=== PATIENT | female | born 1940 | race Caucasian/White ===

== ENCOUNTER → 2018-10-21 | Outpatient (CLI) | payer MEDICARE, OTHER ==
--- NOTE | 2018-10-22 07:06 | US ---
EXAMINATION TYPE: US carotid duplex BILAT DATE OF EXAM: 10/21/2018 COMPARISON: NONE CLINICAL HISTORY: R09.89 CAROTID BRUIT. Bruit Pt scanned in wheelchair, difficult exam EXAM MEASUREMENTS: RIGHT: Peak Systolic Velocity (PSV) cm/sec ----- Right CCA: 90.4 ----- Right ICA: 203 ----- Right ECA: 187 ICA/CCA ratio: 2.2 RIGHT: End Diastole cm/sec ----- Right CCA: 10.2 ----- Right ICA: 28.0 ----- Right ECA: 0.0 LEFT: Peak Systolic Velocity (PSV) cm/sec ----- Left CCA: 100 ----- Left ICA: 116 ----- Left ECA: 121 ICA/CCA ratio: 1.2 LEFT: End Diastole cm/sec ----- Left CCA: 10.7 ----- Left ICA: 21.4 ----- Left ECA: 0.0 VERTEBRALS (direction of flow): Right Vertebral: Unable to visualize Left Vertebral: Antegrade Rhythm: Normal Slightly elevated velocities bilaterally, more on right side IMPRESSION: 1. Atherosclerotic changes. Findings are compatible with approximately 50-69% stenosis proximal right ICA. Given the limitations exam consider correlation with CTA. Criteria for Assigning % of Stenosis / Diameter reduction (Estimation based on the indirect measurements of the internal carotid artery velocities (ICA PSV). 1. Normal (no stenosis)=ICA PSV < 125 cm/s: ratio < 2.0: ICA EDV<40 cm/s. 2. Less than 50% stenosis=ICA PSV < 125 cm/s: ratio < 2.0: ICA EDV<40 cm/s. 3. 50 to 69% stenosis=ICA PSV of 125 to 230 cm/s: ration 2.0 ? 4.0: ICA EDV 40-100 cm/s. 4. Greater than 70% stenosis to near occlusion= ICA PSV > 230 cm/s: ratio > 4.0: ICA EDV > 100 cm/s. 5. Near occlusion= ICA PSV velocities may be low or undetectable: variable ratio and ICA EDV. 6. Total occlusion=unable to detect flow.
== END | disposition home or self-care (01) ==
LOC: RADUSWWP 16:29
PROVIDERS: ATTEND Family Medicine
DX: I70.90 Unspecified atherosclerosis (principal)
CPT/HCPCS: 93880

== ENCOUNTER 2019-10-01 22:08 | Inpatient (IN) | payer MEDICARE ==
[2019-10-01 23:10] LABS: Basophils % (A) 0 %; Eosinophils % (A) 0 %; HCT 34.4 % (34.0-46.0); HGB 10.6 gm/dL (11.4-16.0); Hypochromasia Moderate; Lymphocytes # (A) 0.4 k/uL (1.0-4.8); Lymphocytes % (A) 3 %; MCH 26.5 pg (25.0-35.0); MCHC 30.9 g/dL (31.0-37.0); MCV 85.7 fL (80.0-100.0); Mean Platelet Volume 7.6; Monocytes # (A) 0.7 k/uL (0-1.0); Monocytes % (A) 5 %; Neutrophils # (A) 10.9 k/uL (1.3-7.7); Neutrophils % (A) 89 %; Platelet Count 375 k/uL (150-450); RBC 4.02 m/uL (3.80-5.40); RDW 14.4 % (11.5-15.5); WBC 12.2 k/uL (3.8-10.6)
--- NOTE | 2019-10-01 23:15 | ED ---
Fall HPI - General Chief Complaint: Fall Stated Complaint: Weakness Time Seen by Provider: 10/01/19 22:15 Source: patient Mode of arrival: EMS - History of Present Illness Initial Comments: Jane is a 79-year-old female's rest the ER today by EMS for evaluation of generalized weakness and a fall yesterday. Patient reports she's had a cold for 3 week she hasn't been feeling well hasn't been eating or drinking much. She states she hasn't taken any of her home medications for 3-4 days. Patient states that yesterday evening she had a fall and was too weak to get up, she states that she spent the entire night on the ground and all of today after being unable to get up this evening decided to call 911 for help. Patient reports that her family checks on her regularly and have been encouraging her to come to hospital for the past 2 weeks but she's refused. Patient reports she just doesn't feel well no appetite and generalized malaise. She denies any fevers chills cough, chest pain palpitations or shortness of breath. Patient does report that she suffers from neuropathy and chronic wounds on her lower extremities. - Related Data Home Medications Medication Instructions Recorded Confirmed Ergocalciferol [Vitamin D2 1 tab PO WEEKLY 02/17/14 02/17/14 (VICTOR MANUEL)] Glimepiride [Amaryl] 4 mg PO BID 02/17/14 02/17/14 Previous Rx's Medication Instructions Recorded Aspirin EC [Ecotrin] 325 mg PO DAILY #30 tablet. 02/21/14 Carvedilol [Coreg*] 12.5 mg PO BID #180 tab 02/21/14 Furosemide [Lasix] 40 mg PO DAILY #90 tab 02/21/14 Spironolactone [Aldactone] 25 mg PO DAILY #90 tab 02/21/14 amLODIPine [Norvasc] 10 mg PO DAILY #30 tab 02/21/14 Allergies Allergy/AdvReac Type Severity Reaction Status Date / Time Penicillins Allergy Rash/Hives Verified 02/17/14 16:13 Review of Systems ROS Statement: Those systems with pertinent positive or pertinent negative responses have been documented in the HPI. ROS Other: All systems not noted in ROS Statement are negative. Past Medical History Past Medical History: Heart Failure, COPD, Diabetes Mellitus, Hyperlipidemia, Hypertension, Osteoarthritis (OA), Pneumonia, Skin Disorder, Thyroid Disorder Additional Past Medical History / Comment(s): PUL EDEMA, HIATL HERNIA, EDEMA TO LEGS AND BREAKDOWN/BLISTERS TO MARTÍN LEGS, IBS, EDEMA TO BILAT LE'S History of Any Multi-Drug Resistant Organisms: None Reported Past Surgical History: Cholecystectomy, Tonsillectomy Additional Past Surgical History / Comment(s): neck SX REMOVED BENIGN MASS OUT, RT BREAST BX-BENIGN, LASER EYE SX THINKS ON HER RT EYE. Past Anesthesia/Blood Transfusion Reactions: No Reported Reaction Past Psychological History: No Psychological Hx Reported Smoking Status: Former smoker Past Alcohol Use History: None Reported Past Drug Use History: None Reported - Past Family History Father Family Medical History: Hypertension, Myocardial Infarction ([place]) Additional Family Medical History / Comment(s): X3 [place], Mother Family Medical History: Cancer Additional Family Medical History / Comment(s): DIES FROM COLON [place] General Exam - General Exam Comments Initial Comments: Physical Exam GENERAL: Chronically ill-appearing obese elderly female HENT: Normocephalic, Atraumatic. EYES: PERRL, EOMI Conjunctival pallor PULMONARY: Decreased at the bases CARDIOVASCULAR: Regular rate and rhythm 2+ pitting edema bilateral lower extremities ABDOMEN: Obese, nontender SKIN: Chronic wounds bilateral lower extremities, multiple excoriations on extremities : Normal external genitalia NEUROLOGIC: Patient is alert and oriented x3. Moving all extremities spontaneously MUSCULOSKELETAL: Decreased range of motion of bilateral lower surety secondary to weakness, PSYCHIATRIC: Normal psychiatric evaluation. Limitations: no limitations Course Vital Signs 10/01/19 10/02/19 10/02/19 22:35 00:40 01:35 Temperature 94.7 F L Pulse Rate 58 L 60 Respiratory 22 20 18 Rate Blood Pressure 120/86 114/40 Blood Pressure 161/52 [Left Arm] O2 Sat by Pulse 96 98 Oximetry Medical Decision Making - Medical Decision Making The patient was seen and evaluated history is obtained from patient Elderly female who is been on the ground for nearly 24 hours after weeks of generalized weakness and malaise Septic workup was initiate Labs resulted with multiple significant abnormalities including acute kidney injury, evidence of rhabdomyolysis, hyperkalemia, hyperglycemia IV insulin was ordered for treatment of hyperkalemia, patient was placed on normal saline and D5 with bicarb drips for hydration and treatment of rhabdomyolysis X-rays with no acute injuries Patient care was discussed with her primary care physician Dr. Fleming who acc epts the admission for rhabdomyolysis secondary to immobility and in elderly diabetic patient - Lab Data Result diagrams: 10/01/19 22:40 10/01/19 22:40 Lab Results 10/01/19 10/01/19 10/01/19 Range/Units 22:40 22:40 22:40 WBC 12.2 H (3.8-10.6) k/uL RBC 4.02 (3.80-5.40) m/uL Hgb 10.6 L (11.4-16.0) gm/dL Hct 34.4 (34.0-46.0) % MCV 85.7 (80.0-100.0) fL MCH 26.5 (25.0-35.0) pg MCHC 30.9 L (31.0-37.0) g/dL RDW 14.4 (11.5-15.5) % Plt Count 375 (150-450) k/uL Neutrophils % 89 % Lymphocytes % 3 % Monocytes % 5 % Eosinophils % 0 % Basophils % 0 % Neutrophils # 10.9 H (1.3-7.7) k/uL Lymphocytes # 0.4 L (1.0-4.8) k/uL Monocytes # 0.7 (0-1.0) k/uL Eosinophils # 0.0 (0-0.7) k/uL Basophils # 0.0 (0-0.2) k/uL Hypochromasia Moderate PT 10.3 (9.0-12.0) sec INR 1.0 (<1.2) APTT 24.4 (22.0-30.0) sec Sodium 136 L (137-145) mmol/L Potassium 6.0 H (3.5-5.1) mmol/L Chloride 110 H (98-107) mmol/L Carbon Dioxide 14 L (22-30) mmol/L Anion Gap 12 mmol/L BUN 75 H (7-17) mg/dL Creatinine 3.04 H (0.52-1.04) mg/dL Est GFR (CKD-EPI)AfAm 16 (>60 ml/min/1.73 sqM) Est GFR (CKD-EPI)NonAf 14 (>60 ml/min/1.73 sqM) Glucose 291 H (74-99) mg/dL Plasma Lactic Acid Yvan (0.7-2.0) mmol/L Calcium 9.5 (8.4-10.2) mg/dL Total Bilirubin 0.3 (0.2-1.3) mg/dL AST 138 H (14-36) U/L ALT 20 (4-34) U/L Alkaline Phosphatase 143 H (38-126) U/L Creatine Kinase 3065 H* (30-135) U/L Total Protein 6.6 (6.3-8.2) g/dL Albumin 3.2 L (3.5-5.0) g/dL Urine Color Urine Appearance (Clear) Urine pH (5.0-8.0) Ur Specific Egan (1.001-1.035) Urine Protein (Negative) Urine Glucose (UA) (Negative) Urine Ketones (Negative) Urine Blood (Negative) Urine Nitrite (Negative) Urine Bilirubin (Negative) Urine Urobilinogen (<2.0) mg/dL Ur Leukocyte Esterase (Negative) Urine RBC (0-5) /hpf Urine WBC (0-5) /hpf Ur Squamous Epith Cells (0-4) /hpf Hyaline Casts (0-2) /lpf Urine Mucus (None) /hpf 10/01/19 10/01/19 Range/Units 22:40 23:22 WBC (3.8-10.6) k/uL RBC (3.80-5.40) m/uL Hgb (11.4-16.0) gm/dL Hct (34.0-46.0) % MCV (80.0-100.0) fL MCH (25.0-35.0) pg MCHC (31.0-37.0) g/dL RDW (11.5-15.5) % Plt Count (150-450) k/uL Neutrophils % % Lymphocytes % % Monocytes % % Eosinophils % % Basophils % % Neutrophils # (1.3-7.7) k/uL Lymphocytes # (1.0-4.8) k/uL Monocytes # (0-1.0) k/uL Eosinophils # (0-0.7) k/uL Basophils # (0-0.2) k/uL Hypochromasia PT (9.0-12.0) sec INR (<1.2) APTT (22.0-30.0) sec Sodium (137-145) mmol/L Potassium (3.5-5.1) mmol/L Chloride (98-107) mmol/L Carbon Dioxide (22-30) mmol/L Anion Gap mmol/L BUN (7-17) mg/dL Creatinine (0.52-1.04) mg/dL Est GFR (CKD-EPI)AfAm (>60 ml/min/1.73 sqM) Est GFR (CKD-EPI)NonAf (>60 ml/min/1.73 sqM) Glucose (74-99) mg/dL Plasma Lactic Acid Yvan 1.3 (0.7-2.0) mmol/L Calcium (8.4-10.2) mg/dL Total Bilirubin (0.2-1.3) mg/dL AST (14-36) U/L ALT (4-34) U/L Alkaline Phosphatase (38-126) U/L Creatine Kinase (30-135) U/L Total Protein (6.3-8.2) g/dL Albumin (3.5-5.0) g/dL Urine Color Yellow Urine Appearance Clear (Clear) Urine pH 5.0 (5.0-8.0) Ur Specific Egan 1.018 (1.001-1.035) Urine Protein Trace H (Negative) Urine Glucose (UA) Negative (Negative) Urine Ketones Negative (Negative) Urine Blood Small H (Negative) Urine Nitrite Negative (Negative) Urine Bilirubin Negative (Negative) Urine Urobilinogen <2.0 (<2.0) mg/dL Ur Leukocyte Esterase Negative (Negative) Urine RBC <1 (0-5) /hpf Urine WBC 4 (0-5) /hpf Ur Squamous Epith Cells <1 (0-4) /hpf Hyaline Casts 8 H (0-2) /lpf Urine Mucus Rare H (None) /hpf - EKG Data -: EKG Interpreted by Me EKG Comments: EKG was obtained as part of the septic workup, EKG obtained at 2219, rate is 59 rhythm is sinus bradycardia, OR 152 from here is 92, QTC prolonged at 504, no obvious ST elevations or depressions no evidence of acute ischemia or infarction. Disposition Clinical Impression: Rhabdomyolysis, HUBER (acute kidney injury), Fall, Diabetes Disposition: ADMITTED IP TO THIS HOSP Condition: Serious Is patient prescribed a controlled substance at d/c from ED?: No
[2019-10-01 23:18] LABS: Partial Thromboplastin Time 24.4 sec (22.0-30.0); Prothrombin Time 10.3 sec (9.0-12.0)
[2019-10-01 23:21] LABS: Albumin 3.2 g/dL (3.5-5.0); Calcium 9.5 mg/dL (8.4-10.2); Total Bilirubin 0.3 mg/dL (0.2-1.3); Total Protein 6.6 g/dL (6.3-8.2)
[2019-10-01] MEDS ORDERED: SODIUM CHLORIDE 0.9% 1,000 ML IV ONE (23:52)
[2019-10-01] MEDS ORDERED: INSULIN REGULAR 100 UNIT/ML VIAL IV ONE (23:53)
--- NOTE | 2019-10-02 00:24 | XR ---
EXAMINATION TYPE: XR chest 1V portable DATE OF EXAM: 10/02/2019 COMPARISON: 02/17/2014 HISTORY: Short of breath TECHNIQUE: Single view FINDINGS: There is some blunting left costophrenic angle. There is no heart failure. Heart size is no rmal. There are chest leads. IMPRESSION: There is chronic blunting left costophrenic angle that could relate to pleural diaphragma tic scarring or pleural fluid unchanged. There is clearing of the pulmonary interstitial edema compar ed to old exam.
--- NOTE | 2019-10-02 00:25 | XR ---
EXAMINATION TYPE: XR Hip LT and AP Pelvis DATE OF EXAM: 10/02/2019 COMPARISON: NONE HISTORY: Left hip pain TECHNIQUE: 3 views FINDINGS: Pelvic ring is intact. Proximal left femur and hip joint appear normal. There is no sign of hip dysplasia. Hip joint spaces are fairly normal. Sacroiliac joints are intact. There is atheroscle rotic vascular calcification. IMPRESSION: No acute abnormality of the pelvis and left hip. No fracture.
[2019-10-02] MEDS ORDERED: NALOXONE 0.4 MG/ML 1 ML VIAL IV PRN (00:57)
[2019-10-02 01:00] LABS: Appearance,Urine Clear (Clear); Bilirubin,Urine Negative (Negative); Blood,Urine Small (Negative); Color,Urine Yellow; Glucose,Urine (UA) Negative (Negative); Hyaline Casts,Urine 8 /lpf (0-2); Ketones,Urine Negative (Negative); Leukocyte Esterase,Urine Negative (Negative); Mucus,Urine Rare /hpf; Nitrite,Urine Negative (Negative); Protein,Urine Trace (Negative); RBC,Urine <1 /hpf (0-5); Specific Gravity,Urine 1.018 (1.001-1.035); Squamous Epithelial Cell,Urine <1 /hpf (0-4); Urobilinogen,Urine <2.0 mg/dL (<2.0); WBC,Urine 4 /hpf (0-5)
[2019-10-02] MEDS ORDERED: MORPHINE SULFATE 4 MG/ML SYRINGE IVP PRN (02:24)
[2019-10-02] MEDS: SODIUM CHLORIDE 0.9% 1,000 ML IV SCH ×3 (02:53→17:12)
[2019-10-02] MEDS: DEXTROSE 5% IN WATER 1,000 ML with SODIUM BICARB (1 MEQ/ML) 150 ML IV SCH ×2 (02:55→07:33)
[2019-10-02 07:10] LABS: Glucose,Whole Blood 232 mg/dL (75-99)
[2019-10-02] MEDS: INSULIN ASPART (NovoLOG) 100 UNIT/ML VIAL SQ SCH ×4 (07:33→20:25)
[2019-10-02 11:39] LABS: Glucose,Whole Blood 298 mg/dL (75-99)
--- NOTE | 2019-10-02 14:24 | HP ---
HISTORY AND PHYSICAL CHIEF COMPLAINT: Lethargy, fall, inability to get up. HISTORY OF PRESENT ILLNESS: This is a first time admission for this 79-year-old female. She has a history of hypertension and diabetes. She is very inactive. We got a call from the family the day prior to her admission that she was unable to get up. The report that we got was that she was in a chair and would not get up and move about. They wanted to know what to do and they were instructed to call an ambulance. They had been trying to get her to go either to my office or the hospital for two weeks because of inactivity and she kept refusing. She finally was brought to the emergency room. There she was found to be in rhabdomyolysis. She is lethargic and no other history can be obtained other than from her medical records. She denies pain. Past medical history, family history, personal history, and social history were reviewed. ALLERGIES: SHE IS ALLERGIC TO PENICILLIN. MEDICATIONS: She is supposed to be on atorvastatin 40, Losartan 50, amlodipine 10, carvedilol 12.5 once a day, levothyroxine 0.1 mcg, chlorthalidone 0.5 mg, NovoLog mix 70/30 with 32 units and 12 at night. Apparently she has not been taking any medications. SOCIAL HISTORY: She has smoked in the past but she quit. She does not consume alcohol. PHYSICAL EXAMINATION: Pulse is 110, respirations 33, blood pressure 105/50. In general, she appeared to be pale and she was lethargic. Head, ears, eyes, nose, mouth, and throat are normal. Neck veins are not distended. Breath sounds are heard bilaterally. Cardiac exam is normal. Abdomen is soft and nontender. Extremities demonstrated multiple neurotic excoriations of the arms and legs, particularly on the legs where she had some areas of cellulitis. Neurologically she was lethargic and otherwise intact. IMPRESSION: 1. Rhabdomyolysis. 2. Prerenal azotemia and acute kidney injury. 3. Hyperkalemia. 4. Type 2 insulin-dependent diabetes mellitus. 5. History of hypertension. 6. Neurotic excoriations with secondary cellulitis. PLAN: 1. Bed rest. 2. IV fluids. 3. Rehydrate. 4. Monitor her kidney function. 5. Physical therapy. 6. Discharge planning. MMODL / IJN: [id number] /
[2019-10-02] MEDS ORDERED: ACETAMINOPHEN TAB 325 MG TAB PO PRN (15:29)
[2019-10-02 17:12] LABS: Glucose,Whole Blood 262 mg/dL (75-99)
[2019-10-02 19:04] LABS: Basophils % (A) 0 %; Eosinophils # (A) 0.1 k/uL (0-0.7); Eosinophils % (A) 1 %; HGB 9.9 gm/dL (11.4-16.0); Hypochromasia Moderate; Lymphocytes # (A) 0.5 k/uL (1.0-4.8); Lymphocytes % (A) 6 %; MCH 26.7 pg (25.0-35.0); MCHC 30.9 g/dL (31.0-37.0); MCV 86.4 fL (80.0-100.0); Mean Platelet Volume 7.9; Monocytes # (A) 0.6 k/uL (0-1.0); Monocytes % (A) 6 %; Neutrophils % (A) 86 %; Platelet Count 338 k/uL (150-450); RDW 14.7 % (11.5-15.5); WBC 9.3 k/uL (3.8-10.6)
[2019-10-02 19:14] LABS: Albumin 2.6 g/dL (3.5-5.0); Potassium 5.3 mmol/L (3.5-5.1); Total Bilirubin 0.2 mg/dL (0.2-1.3); Total Protein 5.7 g/dL (6.3-8.2)
[2019-10-02 20:20] LABS: Glucose,Whole Blood 284 mg/dL (75-99)
[2019-10-03] MEDS: SODIUM CHLORIDE 0.9% 1,000 ML IV SCH ×4 (02:11→21:09)
[2019-10-03] MEDS: LEVOTHYROXINE 100 MCG TAB PO SCH (05:49)
[2019-10-03 07:00] LABS: Glucose,Whole Blood 206 mg/dL (75-99)
[2019-10-03] MEDS: ASPIRIN 325 MG TAB PO SCH (07:33)
[2019-10-03] MEDS: INSULIN ASPART (NovoLOG) 100 UNIT/ML VIAL SQ SCH ×4 (07:33→21:01)
[2019-10-03 11:57] LABS: Glucose,Whole Blood 191 mg/dL (75-99)
[2019-10-03 17:01] LABS: Glucose,Whole Blood 295 mg/dL (75-99)
--- NOTE | 2019-10-03 17:32 | PN ---
PROGRESS NOTE DATE OF SERVICE: 10/03/2019 CHIEF COMPLAINT: Rhabdomyolysis. HISTORY OF PRESENT ILLNESS: This lady is sleeping and cannot be aroused. Her vital signs are normal and her laboratory studies will be repeated. PHYSICAL EXAMINATION: Blood pressure 126/83 with a pulse of 64, respirations are 10. She is afebrile. In general, she appeared to be well hydrated. Skin color is normal. Head, ears, eyes, nose, and mouth are normal. Chest is clear. Cardiac exam is normal. Abdomen is protuberant soft. Extremities are unchanged with the neurotic excoriations and cellulitis. IMPRESSION: Rhabdomyolysis. PLAN: Continue with IV fluids and repeat laboratory studies and eventually work on a discharge plan. MMODL / IJN: [id number] /
[2019-10-03 20:46] LABS: Glucose,Whole Blood 282 mg/dL (75-99)
[2019-10-03] MEDS: DEXTROSE 5% IN WATER 1,000 ML with SODIUM BICARB (1 MEQ/ML) 150 ML IV SCH (21:02)
[2019-10-04] MEDS: SODIUM CHLORIDE 0.9% 1,000 ML IV SCH ×3 (02:26→21:51)
[2019-10-04] MEDS: LEVOTHYROXINE 100 MCG TAB PO SCH (05:40)
[2019-10-04 07:10] LABS: Basophils % (A) 1 %; Eosinophils # (A) 0.3 k/uL (0-0.7); Eosinophils % (A) 5 %; HCT 28.5 % (34.0-46.0); Hypochromasia Slight; Lymphocytes # (A) 1.3 k/uL (1.0-4.8); Lymphocytes % (A) 18 %; MCH 26.3 pg (25.0-35.0); MCHC 31.4 g/dL (31.0-37.0); MCV 83.8 fL (80.0-100.0); Mean Platelet Volume 7.8; Monocytes # (A) 0.7 k/uL (0-1.0); Monocytes % (A) 9 %; Neutrophils # (A) 4.6 k/uL (1.3-7.7); Neutrophils % (A) 64 %; Platelet Count 319 k/uL (150-450); RDW 15.4 % (11.5-15.5); WBC 7.1 k/uL (3.8-10.6)
[2019-10-04 07:16] LABS: Glucose,Whole Blood 175 mg/dL (75-99)
[2019-10-04 07:16] LABS: Albumin 2.3 g/dL (3.5-5.0); Calcium 8.5 mg/dL (8.4-10.2); Potassium 4.8 mmol/L (3.5-5.1); Total Bilirubin 0.3 mg/dL (0.2-1.3); Total Protein 5.2 g/dL (6.3-8.2)
[2019-10-04] MEDS: ASPIRIN 325 MG TAB PO SCH (07:38)
[2019-10-04] MEDS: INSULIN ASPART (NovoLOG) 100 UNIT/ML VIAL SQ SCH ×4 (07:38→20:57)
[2019-10-04 11:42] LABS: Glucose,Whole Blood 240 mg/dL (75-99)
[2019-10-04 11:49] LABS: Hemoglobin A1C 7.3 % (4.0-6.0)
[2019-10-04 16:31] LABS: Glucose,Whole Blood 242 mg/dL (75-99)
--- NOTE | 2019-10-04 19:35 | PN ---
PROGRESS NOTE CHIEF COMPLAINT: Rhabdomyolysis. HISTORY OF PRESENT ILLNESS: This lady is slowly improving. BUN and creatinine are starting to come down. She is much more alert. She is complaining of some discomfort in the legs, but otherwise she has no issues or complaints. PHYSICAL EXAMINATION: Her vital signs are normal. Chest is clear. Cardiac exam is normal. Abdomen is soft and nontender. Lesions on the legs are somewhat less violaceous and seem to be improved. IMPRESSION: 1. Failure to thrive. 2. Rhabdomyolysis. 3. Renal failure. 4. Uncontrolled diabetes. 5. Neurotic excoriations and cellulitis of the lower extremities. PLAN: 1. Add Levemir 10 units once a day. 2. Repeat laboratory studies. 3. Increase activity. MMODL / IJN: [id number] /
[2019-10-04 20:45] LABS: Glucose,Whole Blood 253 mg/dL (75-99)
[2019-10-04] MEDS: DEXTROSE 5% IN WATER 1,000 ML with SODIUM BICARB (1 MEQ/ML) 150 ML IV SCH (21:48)
[2019-10-05] MEDS: SODIUM CHLORIDE 0.9% 1,000 ML IV SCH ×2 (04:46→08:19)
[2019-10-05] MEDS: LEVOTHYROXINE 100 MCG TAB PO SCH (05:43)
[2019-10-05 06:20] LABS: Basophils # (A) 0.1 k/uL (0-0.2); Basophils % (A) 1 %; Eosinophils # (A) 0.5 k/uL (0-0.7); Eosinophils % (A) 6 %; HCT 29.2 % (34.0-46.0); HGB 9.1 gm/dL (11.4-16.0); Hypochromasia Moderate; Lymphocytes # (A) 1.3 k/uL (1.0-4.8); Lymphocytes % (A) 16 %; MCH 26.7 pg (25.0-35.0); MCV 86.1 fL (80.0-100.0); Mean Platelet Volume 7.7; Monocytes # (A) 0.6 k/uL (0-1.0); Monocytes % (A) 8 %; Neutrophils # (A) 5.3 k/uL (1.3-7.7); Neutrophils % (A) 66 %; Platelet Count 300 k/uL (150-450); RBC 3.39 m/uL (3.80-5.40); RDW 15.1 % (11.5-15.5); WBC 8.1 k/uL (3.8-10.6)
[2019-10-05 06:33] LABS: Albumin 2.4 g/dL (3.5-5.0); Calcium 8.7 mg/dL (8.4-10.2); Potassium 4.9 mmol/L (3.5-5.1); Total Bilirubin 0.4 mg/dL (0.2-1.3); Total Protein 5.2 g/dL (6.3-8.2)
[2019-10-05] MEDS ORDERED: INSULIN DETEMIR (LEVEMIR) 100 UNIT/ML SYR SQ SCH (07:00)
[2019-10-05 07:05] LABS: Glucose,Whole Blood 165 mg/dL (75-99)
[2019-10-05] MEDS: INSULIN ASPART (NovoLOG) 100 UNIT/ML VIAL SQ SCH (07:23)
[2019-10-05 08:01] VITALS: BP 154/53; PULSE 74; RESP 16; TEMP 98.1
[2019-10-05] MEDS: ASPIRIN 325 MG TAB PO SCH (08:17)
[2019-10-05] MEDS ORDERED: LOSARTAN 50 MG TAB PO SCH (09:00)
[2019-10-05] MEDS ORDERED: amLODIPine 10 MG TAB PO SCH (09:00)
[2019-10-05] MEDS ORDERED: ATORVASTATIN 40 MG TAB PO SCH (09:00)
[2019-10-05] MEDS ORDERED: CARVEDILOL 12.5 MG TAB PO SCH (09:00)
[2019-10-05] MEDS ORDERED: SPIRONOLACTONE 25 MG TAB PO SCH (09:00)
[2019-10-05 11:30] LABS: Glucose,Whole Blood 157 mg/dL (75-99)
--- NOTE | 2019-10-05 11:54 | DS ---
DISCHARGE SUMMARY CHIEF COMPLAINT: Rhabdomyolysis. HISTORY OF PRESENT ILLNESS AND PHYSICAL EXAM: Details of this lady's history and physical can be found in the initial workup. LABORATORY STUDIES: While she was in the hospital she had laboratory studies, details of which can be found in the laboratory section of her chart. COURSE IN THE HOSPITAL: After admission she was placed on bedrest, started on intravenous fluids and she is followed by Nephrology. BUN and creatinine came down. She became much more awake and alert, and arrangements were made for her to go to [facility] on the . FINAL DIAGNOSES: 1. Rhabdomyolysis. 2. Uncontrolled type 2 insulin-dependent diabetes mellitus. 3. Failure to thrive and general debility. 4. Neurotic excoriations of the lower extremities with secondary cellulitis. OPERATIONS: None. CONSULTATIONS: Nephrology. She is improved. MMODL / HEAVENLYN: [id number] /
[2019-10-05] MEDS ORDERED: INSULIN ASPART (NovoLOG) 100 UNIT/ML VIAL SQ SCH (12:30)
[2019-10-06] MEDS ORDERED: INSULIN DETEMIR (LEVEMIR) 100 UNIT/ML SYR SQ SCH (07:00)
== END 2019-10-05 13:50 | DRG 558 ==
LOC: EC 22:08 → 4SSUR 10-02 01:06
PROVIDERS: ADMIT Family Medicine; ATTEND Family Medicine
DX: M62.82 Rhabdomyolysis (principal); N17.9 Acute kidney failure, unspecified; L03.115 Cellulitis of right lower limb; L03.116 Cellulitis of left lower limb; J44.9 Chronic obstructive pulmonary disease, unspecified; E11.65 Type 2 diabetes mellitus with hyperglycemia; E78.5 Hyperlipidemia, unspecified; M19.90 Unspecified osteoarthritis, unspecified site; W19.XXXA Unspecified fall, initial encounter; E87.5 Hyperkalemia; G62.9 Polyneuropathy, unspecified; I11.0 Hypertensive heart disease with heart failure; R62.7 Adult failure to thrive; I50.9 Heart failure, unspecified; Z79.4 Long term (current) use of insulin; Z79.82 Long term (current) use of aspirin; Z79.899 Other long term (current) drug therapy; Z88.0 Allergy status to penicillin; Z80.0 Family history of malignant neoplasm of digestive organs; Z90.89 Acquired absence of other organs; Z90.49 Acquired absence of other specified parts of digestive tract; Z98.890 Other specified postprocedural states; Z87.891 Personal history of nicotine dependence; Z82.49 Family history of ischemic heart disease and other diseases of the circulatory system
CPT/HCPCS: 36415; 51702; 71045; 73502; 80053; 81001; 82550; 83036; 83605; 85025; 85610; 85730; 87040; 93005; 99285

== ENCOUNTER 2019-10-18 17:11 | Inpatient (IN) | payer MEDICARE ==
--- NOTE | 2019-10-18 17:26 | ED ---
General Adult HPI - General Chief complaint: Recheck/Abnormal Lab/Rx Stated complaint: abnormal labs Time Seen by Provider: 10/18/19 17:13 Source: EMS Mode of arrival: EMS Limitations: no limitations - History of Present Illness Initial comments: Dictation was produced using [employer] dictation software. please excuse any grammatical, word or spelling errors. This patient was cared for during a federal and state declared state of emergency secondary to Covid 19 Chief Complaint: 79-year-old female past medical history heart failure, diabetes and dyslipidemia sent in for abnormal labs. History of Present Illness: -year-old female she was sent by her primary care physician Dr. Fleming for abnormal labs. Patient was sent in for elevated brain natruretic peptide. Patient has a history of heart failure. Patient's been dyspneic for several days. She does have a history of rhabdomyolysis. She denies any chest pain at this time. She does feel that her dyspnea is worse with exertion. Patient recently admitted for rhabdomyolysis. She was discharged in stable medical condition on October 04. Patient had labs performed earlier today. Her brain atretic peptide was elevated at 5000. She does complain of lower extremity swelling. Patient also had a potassium level of 6.5 with findings of acute kidney injury seen on labs as well. The ROS documented in this emergency department record has been reviewed and confirmed by me. Those systems with pertinent positive or negative responses have been documented in the HPI. All other systems are other negative and/or noncontributory. PHYSICAL EXAM: General Impression: Alert and oriented x3, not in acute distress HEENT: Normocephalic atraumatic, extra-ocular movements intact, pupils equal and reactive to light bilaterally, mucous membranes moist. Cardiovascular: Heart regular rate and rhythm Chest: Able to complete full sentences, no retractions, no respiratory distress, non-tachypneic Abdomen: Bowel sounds present, abdomen soft, non-tender, non-distended, no organomegaly Musculoskeletal: Pulses present and equal in all extremities, 2+ pitting edema bilateral lower extremities Motor: no focal deficits noted Neurological: CN II-XII grossly intact, no focal motor or sensory deficits noted Skin: Intact with no visualized rashes Psych: Normal affect and mood ED course: 79-year-old female with abnormal outpatient labs. Signs upon arrival are within acceptable limits.Lavatory evaluation obtained. Hemoglobin of 8.7. This appears to be patient's baseline. CBC that shows some lymphocytopenia. Coag panel unremarkable. Potassium level .3. Acute kidney injury. Glucose 58. Patient given hyperkalemia cocktail. Chest x-ray shows multifocal infiltrates. Patient will be tested for Covid 19. Chest have some shortness of breath. Patient will be treated for manic or pneumonia. Patient will be admitted to Dr. Fleming service. Nephrology on consult EKG interpretation: Ventricular rate 53, sinus bradycardia, NC interval 18, QRS 78, QTC 422. No NC prolongation, no QTC prolongation, no ST or T-wave changes noted.. Overall, this EKG is unremarkable - Related Data Home Medications Medication Instructions Recorded Confirmed Carvedilol [Coreg*] 12.5 mg PO DAILY 10/02/19 10/02/19 Levothyroxine Sodium 100 mcg PO DAILY 10/02/19 10/02/19 Losartan [Cozaar] 50 mg PO DAILY 10/02/19 10/02/19 Previous Rx's Medication Instructions Recorded Aspirin EC [Ecotrin] 325 mg PO DAILY #30 tablet. 02/21/14 amLODIPine [Norvasc] 10 mg PO DAILY #30 tab 02/21/14 INSULIN ASPART (NovoLOG) [NovoLOG 8 unit SQ AC-TID #90 vial 10/05/19 (formulary)] Insulin Detemir (Levemir) [Levemir] 20 unit SQ DAILY@0700 90 Days #1 10/05/19 pen Allergies Allergy/AdvReac Type Severity Reaction Status Date / Time Penicillins Allergy Rash/Hives Verified 10/02/19 12:26 Review of Systems ROS Statement: Those systems with pertinent positive or pertinent negative responses have been documented in the HPI. ROS Other: All systems not noted in ROS Statement are negative. Past Medical History Past Medical History: Heart Failure, COPD, Diabetes Mellitus, Hyperlipidemia, Hypertension, Osteoarthritis (OA), Pneumonia, Skin Disorder, Thyroid Disorder Additional Past Medical History / Comment(s): PUL EDEMA, HIATL HERNIA, EDEMA TO LEGS AND BREAKDOWN/BLISTERS TO MARTÍN LEGS, IBS, EDEMA TO BILAT LE'S History of Any Multi-Drug Resistant Organisms: None Reported Past Surgical History: Cholecystectomy, Tonsillectomy Additional Past Surgical History / Comment(s): neck SX REMOVED BENIGN MASS OUT, RT BREAST BX-BENIGN, LASER EYE SX THINKS ON HER RT EYE. Past Anesthesia/Blood Transfusion Reactions: No Reported Reaction Past Psychological History: No Psychological Hx Reported Smoking Status: Former smoker Past Alcohol Use History: None Reported Past Drug Use History: None Reported - Past Family History Father Family Medical History: Hypertension, Myocardial Infarction ([place]) Additional Family Medical History / Comment(s): X3 [place], Mother Family Medical History: Cancer Additional Family Medical History / Comment(s): DIES FROM COLON [place] General Exam Limitations: no limitations Course Vital Signs 10/18/19 10/18/19 17:13 18:17 Temperature 97.9 F Pulse Rate 57 L 56 L Respiratory 16 16 Rate Blood Pressure 128/68 144/54 O2 Sat by Pulse 94 L 96 Oximetry Medical Decision Making - Lab Data Result diagrams: 10/18/19 17:24 10/18/19 17:24 Lab Results 10/18/19 10/18/19 10/18/19 Range/Units 17:24 17:24 17:24 WBC 5.1 (3.8-10.6) k/uL RBC 3.34 L (3.80-5.40) m/uL Hgb 8.7 L (11.4-16.0) gm/dL Hct 28.3 L (34.0-46.0) % MCV 84.7 (80.0-100.0) fL MCH 26.2 (25.0-35.0) pg MCHC 30.9 L (31.0-37.0) g/dL RDW 15.1 (11.5-15.5) % Plt Count 532 H (150-450) k/uL Neutrophils % 68 % Lymphocytes % 18 % Monocytes % 6 % Eosinophils % 4 % Basophils % 1 % Neutrophils # 3.5 (1.3-7.7) k/uL Lymphocytes # 0.9 L (1.0-4.8) k/uL Monocytes # 0.3 (0-1.0) k/uL Eosinophils # 0.2 (0-0.7) k/uL Basophils # 0.0 (0-0.2) k/uL Hypochromasia Moderate PT 10.0 (9.0-12.0) sec INR 1.0 (<1.2) APTT 21.0 L (22.0-30.0) sec Sodium 137 (137-145) mmol/L Potassium 6.3 H* (3.5-5.1) mmol/L Chloride 107 (98-107) mmol/L Carbon Dioxide 25 (22-30) mmol/L Anion Gap 5 mmol/L BUN 72 H (7-17) mg/dL Creatinine 2.63 H (0.52-1.04) mg/dL Est GFR (CKD-EPI)AfAm 19 (>60 ml/min/1.73 sqM) Est GFR (CKD-EPI)NonAf 17 (>60 ml/min/1.73 sqM) Glucose 58 L (74-99) mg/dL Plasma Lactic Acid Yvan (0.7-2.0) mmol/L Calcium 8.9 (8.4-10.2) mg/dL Total Bilirubin 0.3 (0.2-1.3) mg/dL AST 25 (14-36) U/L ALT 10 (4-34) U/L Alkaline Phosphatase 110 (38-126) U/L Creatine Kinase 39 (30-135) U/L Total Protein 6.5 (6.3-8.2) g/dL Albumin 3.1 L (3.5-5.0) g/dL 10/18/19 Range/Units 17:24 WBC (3.8-10.6) k/uL RBC (3.80-5.40) m/uL Hgb (11.4-16.0) gm/dL Hct (34.0-46.0) % MCV (80.0-100.0) fL MCH (25.0-35.0) pg MCHC (31.0-37.0) g/dL RDW (11.5-15.5) % Plt Count (150-450) k/uL Neutrophils % % Lymphocytes % % Monocytes % % Eosinophils % % Basophils % % Neutrophils # (1.3-7.7) k/uL Lymphocytes # (1.0-4.8) k/uL Monocytes # (0-1.0) k/uL Eosinophils # (0-0.7) k/uL Basophils # (0-0.2) k/uL Hypochromasia PT (9.0-12.0) sec INR (<1.2) APTT (22.0-30.0) sec Sodium (137-145) mmol/L Potassium (3.5-5.1) mmol/L Chloride (98-107) mmol/L Carbon Dioxide (22-30) mmol/L Anion Gap mmol/L BUN (7-17) mg/dL Creatinine (0.52-1.04) mg/dL Est GFR (CKD-EPI)AfAm (>60 ml/min/1.73 sqM) Est GFR (CKD-EPI)NonAf (>60 ml/min/1.73 sqM) Glucose (74-99) mg/dL Plasma Lactic Acid Yvan 0.7 (0.7-2.0) mmol/L Calcium (8.4-10.2) mg/dL Total Bilirubin (0.2-1.3) mg/dL AST (14-36) U/L ALT (4-34) U/L Alkaline Phosphatase (38-126) U/L Creatine Kinase (30-135) U/L Total Protein (6.3-8.2) g/dL Albumin (3.5-5.0) g/dL Disposition Clinical Impression: Hyperkalemia, Multifocal pneumonia Disposition: ADMITTED IP TO THIS [facility] Condition: Fair Referrals: Faisal Fleming MD [Primary Care Provider] - 1-2 days Decision Time: 18:32
[2019-10-18 17:33] LABS: Basophils % (A) 1 %; Eosinophils # (A) 0.2 k/uL (0-0.7); Eosinophils % (A) 4 %; HCT 28.3 % (34.0-46.0); HGB 8.7 gm/dL (11.4-16.0); Hypochromasia Moderate; Lymphocytes # (A) 0.9 k/uL (1.0-4.8); Lymphocytes % (A) 18 %; MCH 26.2 pg (25.0-35.0); MCHC 30.9 g/dL (31.0-37.0); MCV 84.7 fL (80.0-100.0); Mean Platelet Volume 7.4; Monocytes # (A) 0.3 k/uL (0-1.0); Monocytes % (A) 6 %; Neutrophils # (A) 3.5 k/uL (1.3-7.7); Neutrophils % (A) 68 %; Platelet Count 532 k/uL (150-450); RBC 3.34 m/uL (3.80-5.40); RDW 15.1 % (11.5-15.5); WBC 5.1 k/uL (3.8-10.6)
[2019-10-18 17:43] LABS: Albumin 3.1 g/dL (3.5-5.0); Calcium 8.9 mg/dL (8.4-10.2); Total Bilirubin 0.3 mg/dL (0.2-1.3); Total Protein 6.5 g/dL (6.3-8.2)
[2019-10-18 17:55] LABS: Potassium 6.3 mmol/L (3.5-5.1)
[2019-10-18] MEDS ORDERED: DEXTROSE 50% SYRINGE 50 ML IVP ONE (17:58)
[2019-10-18] MEDS ORDERED: SODIUM POLYSTYRENE SULFONATE 15 GM/60 ML BOTTLE PO ONE (17:58)
[2019-10-18] MEDS ORDERED: INSULIN REGULAR 100 UNIT/ML VIAL IV ONE (17:58)
[2019-10-18] MEDS ORDERED: ALBUTEROL NEB (CONC) 2.5 MG/0.5 ML INHALATION ONE (17:58)
--- NOTE | 2019-10-18 18:09 | XR ---
EXAMINATION TYPE: XR chest 1V portable DATE OF EXAM: 10/18/2019 HISTORY: Shortness of breath. COMPARISON: 10/02/2019 TECHNIQUE: Single view of the chest is submitted. FINDINGS: Demonstrated are scattered senescent parenchymal change. Basilar infiltrates are noted. Correlate for pneumonia. The heart is stable. Hilar and mediastinal structures are within normal limits. Degenerative changes are seen of the dorsal spine. IMPRESSION: 1. Basilar infiltrates are noted. Correlate for pneumonia.
[2019-10-18] MEDS ORDERED: DEXTROSE 50% SYRINGE 50 ML IVP STA ×2 (18:27→21:09)
[2019-10-18] MEDS ORDERED: NALOXONE 0.4 MG/ML 1 ML VIAL IV PRN (18:29)
[2019-10-18] MEDS ORDERED: ONDANSETRON 4 MG/2 ML VIAL IVP PRN (18:29)
[2019-10-18] MEDS ORDERED: AZITHROMYCIN 500 MG in SODIUM CHLORIDE 0.9% 250 ML IVPB STA (18:31)
[2019-10-18] MEDS ORDERED: cefTRIAXone IN SWFI 1,000 MG/10 ML SYRINGE IVP STA (18:31)
[2019-10-18 19:09] LABS: Glucose,Whole Blood 66 mg/dL (75-99)
[2019-10-18] MEDS: SODIUM CHLORIDE 0.9% 1,000 ML IV SCH (19:17)
[2019-10-18 20:51] LABS: Glucose,Whole Blood 43 mg/dL (75-99)
[2019-10-18 21:13] LABS: Glucose,Whole Blood 184 mg/dL (75-99)
[2019-10-18 22:28] LABS: Albumin 2.6 g/dL (3.5-5.0); Calcium 8.4 mg/dL (8.4-10.2); Potassium 5.8 mmol/L (3.5-5.1); Total Bilirubin 0.2 mg/dL (0.2-1.3); Total Protein 5.5 g/dL (6.3-8.2)
[2019-10-19 01:47] LABS: Appearance,Urine Clear (Clear); Bilirubin,Urine Negative (Negative); Blood,Urine Negative (Negative); Color,Urine Light Yellow; Glucose,Urine (UA) Negative (Negative); Hyaline Casts,Urine 1 /lpf (0-2); Ketones,Urine Negative (Negative); Leukocyte Esterase,Urine Small (Negative); Nitrite,Urine Negative (Negative); Protein,Urine Negative (Negative); RBC,Urine 1 /hpf (0-5); Urobilinogen,Urine <2.0 mg/dL (<2.0); WBC,Urine 4 /hpf (0-5)
[2019-10-19] MEDS: SODIUM CHLORIDE 0.9% 1,000 ML IV SCH ×3 (04:52→20:14)
[2019-10-19 06:40] LABS: Glucose,Whole Blood 65 mg/dL (75-99)
[2019-10-19 07:00] LABS: Glucose,Whole Blood 89 mg/dL (75-99)
[2019-10-19 11:31] LABS: Glucose,Whole Blood 97 mg/dL (75-99)
[2019-10-19] MEDS: INSULIN ASPART (NovoLOG) 100 UNIT/ML VIAL SQ SCH ×2 (12:03→18:17)
[2019-10-19 13:03] LABS: Basophils # (A) 0.1 k/uL (0-0.2); Basophils % (A) 1 %; Eosinophils # (A) 0.3 k/uL (0-0.7); Eosinophils % (A) 5 %; HCT 28.8 % (34.0-46.0); HGB 8.8 gm/dL (11.4-16.0); Hypochromasia Moderate; Lymphocytes % (A) 15 %; MCH 26.4 pg (25.0-35.0); MCHC 30.6 g/dL (31.0-37.0); MCV 86.1 fL (80.0-100.0); Mean Platelet Volume 7.6; Monocytes # (A) 0.5 k/uL (0-1.0); Monocytes % (A) 8 %; Neutrophils # (A) 4.6 k/uL (1.3-7.7); Neutrophils % (A) 71 %; Platelet Count 487 k/uL (150-450); RBC 3.34 m/uL (3.80-5.40); RDW 15.5 % (11.5-15.5); WBC 6.5 k/uL (3.8-10.6)
[2019-10-19 13:04] LABS: Albumin 2.8 g/dL (3.5-5.0); Calcium 8.6 mg/dL (8.4-10.2); Potassium 5.6 mmol/L (3.5-5.1); Total Bilirubin 0.2 mg/dL (0.2-1.3); Total Protein 5.9 g/dL (6.3-8.2)
--- NOTE | 2019-10-19 13:14 | P.CONS ---
History of Present Illness - Reason for Consult Consult date: 10/19/19 Wound care - History of Present Illness This is a 79-year-old patient who is a resident of [facility] being seen on 3 S. by wound care for nonhealing ulceration to the midline coccyx left buttocks and right heel. Patient has multiple ulcerations on bilateral anterior and posterior lower extremities that are in various stages of healing. Patient states that the ulcerations have been there for an extended amount of time. P atient states that she does receive some wound care at [facility] however she does not know what she receives. Patient's past medical history significant for heart failure, COPD, diabetes mellitus, hyperlipidemia, osteoarthritis. Review of Systems Review Of Systems: Constitutional: No fever, no chills, no night sweats. No weight change. No weakness, fatigue or lethargy. No daytime sleepiness. Integumentary:reports wounds, no lesions. No rash or pruritus. No unusual bruising. No change in hair or nails. Past Medical History Past Medical History: Heart Failure, COPD, Diabetes Mellitus, Hyperlipidemia, Hy pertension, Osteoarthritis (OA), Pneumonia, Skin Disorder, Thyroid Disorder Additional Past Medical History / Comment(s): PUL EDEMA, HIATL HERNIA, EDEMA TO LEGS AND BREAKDOWN/BLISTERS TO MARTÍN LEGS, IBS, EDEMA TO BILAT LE'S History of Any Multi-Drug Resistant Organisms: None Reported Past Surgical History: Cholecystectomy, Tonsillectomy Additional Past Surgical History / Comment(s): neck SX REMOVED BENIGN MASS OUT, RT BREAST BX-BENIGN, LASER EYE SX THINKS ON HER RT EYE. Past Anesthesia/Blood Transfusion Reactions: No Reported Reaction Past Psychological History: No Psychological Hx Reported Smoking Status: Former smoker Past Alcohol Use History: None Reported Past Drug Use History: None Reported - Past Family History Father Family Medical History: Hypertension, Myocardial Infarction ([place]) Additional Family Medical History / Comment(s): X3 [place], Mother Family Medical History: Cancer Additional Family Medical History / Comment(s): DIES FROM COLON [place] Medications and Allergies Home Medications Medication Instructions Recorded Confirmed Type Carvedilol [Coreg*] 12.5 mg PO DAILY@0800 10/02/19 10/18/19 History Levothyroxine Sodium 100 mcg PO DAILY@0600 10/02/19 10/18/19 History Losartan [Cozaar] 50 mg PO DAILY@0800 10/02/19 10/18/19 History Insulin Detemir (Levemir) [Levemir] 20 unit SQ DAILY@0700 90 Days #1 10/05/19 10/18/19 Rx pen Acetaminophen [Tylenol] 650 mg PO Q4H PRN 10/18/19 10/18/19 History Aspirin EC [Ecotrin] 325 mg PO DAILY@1700 10/18/19 10/18/19 History Bisacodyl [Dulcolax] 10 mg RECTAL DAILY PRN 10/18/19 10/18/19 History Collagenase [Santyl] 1 applic TOPICAL DAILY 10/18/19 10/18/19 History Furosemide [Lasix] 40 mg PO DAILY@0800 10/18/19 10/18/19 History Glucerna Shake 1 can PO BID@0800,1700 10/18/19 10/18/19 History INSULIN ASPART (NovoLOG) [NovoLOG 5 unit SQ AC-TID 10/18/19 10/18/19 History (formulary)] Liquacel 30 ml PO BID@0800,1700 10/18/19 10/18/19 History Magnesium Hydroxide [Milk of 7,200 mg PO DAILY PRN 10/18/19 10/18/19 History Magnesia Concentrate] Na Phos,M-B/Na Phos,Di-Ba [Fleet 133 ml RECTAL DAILY PRN 10/18/19 10/18/19 History Adult] Nystatin 100,000Unit/gm Cream 1 applic TOPICAL BID@0800,2100 10/18/19 10/18/19 History [Mycostatin Cream] Sulfamethox-Tmp 800-160Mg [Bactrim 1 tab PO BID@0800,1700 10/18/19 10/18/19 History DS 800-160 mg] amLODIPine [Norvasc] 10 mg PO DAILY@0800 10/18/19 10/18/19 History Allergies Allergy/AdvReac Type Severity Reaction Status Date / Time Penicillins Allergy Rash/Hives Verified 10/18/19 19:23 Physical Exam Vitals: Vital Signs Temp Pulse Pulse Pulse Resp BP BP 10/19/19 12:00 69 16 128/62 10/19/19 08:00 97.5 F L 70 16 140/64 10/19/19 04:00 97.5 F L 60 60 18 130/59 10/19/19 00:00 97.3 F L 56 L 18 106/58 10/18/19 21:30 94.4 F L 53 L 53 L 18 97/55 10/18/19 18:45 52 L 10/18/19 18:33 52 L 10/18/19 18:17 56 L 16 144/54 10/18/19 17:13 97.9 F 57 L 16 128/68 Pulse Ox 10/19/19 12:00 94 L 10/19/19 08:00 93 L 10/19/19 04:00 93 L 10/19/19 00:00 93 L 10/18/19 21:30 94 L 10/18/19 18:45 10/18/19 18:33 10/18/19 18:17 96 10/18/19 17:13 94 L Intake and Output 10/18/19 10/19/19 10/19/19 22:59 06:59 14:59 Intake Total 50 240 Output Total 350 Balance 50 -350 240 Intake: Amount of Fluid Infused ( 50 ml) Oral 240 Output: Urine 350 Uretheral (Zhang) 350 Other: Voiding Method Incontinent Incontinent Incontinent # Voids 0 0 2 Weight 108.862 kg 113.5 kg Physical exam: General Appearance: Alert, cooperative, no distress, appears stated age. Skin: Midline coccyx ulceration with fat layer exposure wound bed shows medium granulation and minimal nonviable tissue that includes Slough, left gluteus ulceration with fat layer exposure wound that shows minimal granulation, moderate nonviable tissue including slough and exudate, right calcaneus ulceration is a pressure injury with an eschar cap, all other Skin color, texture, tugor normal, no rashes or lesions. Neurologic: Alert oriented x3 Results CBC & Chem 7: 10/19/19 12:27 10/19/19 12:27 Labs: Abnormal Lab Results - Last 24 Hours (Table) 10/18/19 10/18/19 10/18/19 Range/Units 17:24 17:24 17:24 RBC 3.34 L (3.80-5.40) m/uL Hgb 8.7 L (11.4-16.0) gm/dL Hct 28.3 L (34.0-46.0) % MCHC 30.9 L (31.0-37.0) g/dL Plt Count 532 H (150-450) k/uL Lymphocytes # 0.9 L (1.0-4.8) k/uL APTT 21.0 L (22.0-30.0) sec Sodium (137-145) mmol/L Potassium 6.3 H* (3.5-5.1) mmol/L Chloride (98-107) mmol/L Carbon Dioxide (22-30) mmol/L BUN 72 H (7-17) mg/dL Creatinine 2.63 H (0.52-1.04) mg/dL Glucose 58 L (74-99) mg/dL POC Glucose (mg/dL) (75-99) mg/dL Total Protein (6.3-8.2) g/dL Albumin 3.1 L (3.5-5.0) g/dL Ur Leukocyte Esterase (Negative) 10/18/19 10/18/19 10/18/19 Range/Units 18:58 20:50 21:10 RBC (3.80-5.40) m/uL Hgb (11.4-16.0) gm/dL Hct (34.0-46.0) % MCHC (31.0-37.0) g/dL Plt Count (150-450) k/uL Lymphocytes # (1.0-4.8) k/uL APTT (22.0-30.0) sec Sodium (137-145) mmol/L Potassium (3.5-5.1) mmol/L Chloride (98-107) mmol/L Carbon Dioxide (22-30) mmol/L BUN (7-17) mg/dL Creatinine (0.52-1.04) mg/dL Glucose (74-99) mg/dL POC Glucose (mg/dL) 66 L 43 L 184 H (75-99) mg/dL Total Protein (6.3-8.2) g/dL Albumin (3.5-5.0) g/dL Ur Leukocyte Esterase (Negative) 10/18/19 10/18/19 10/19/19 Range/Units 22:06 23:59 06:32 RBC (3.80-5.40) m/uL Hgb (11.4-16.0) gm/dL Hct (34.0-46.0) % MCHC (31.0-37.0) g/dL Plt Count (150-450) k/uL Lymphocytes # (1.0-4.8) k/uL APTT (22.0-30.0) sec Sodium 136 L (137-145) mmol/L Potassium 5.8 H (3.5-5.1) mmol/L Chloride (98-107) mmol/L Carbon Dioxide 20 L (22-30) mmol/L BUN 68 H (7-17) mg/dL Creatinine 2.62 H (0.52-1.04) mg/dL Glucose 147 H (74-99) mg/dL POC Glucose (mg/dL) 65 L (75-99) mg/dL Total Protein 5.5 L (6.3-8.2) g/dL Albumin 2.6 L (3.5-5.0) g/dL Ur Leukocyte Esterase Small H (Negative) 10/19/19 10/19/19 Range/Units 12:27 12:27 RBC 3.34 L (3.80-5.40) m/uL Hgb 8.8 L (11.4-16.0) gm/dL Hct 28.8 L (34.0-46.0) % MCHC 30.6 L (31.0-37.0) g/dL Plt Count 487 H (150-450) k/uL Lymphocytes # (1.0-4.8) k/uL APTT (22.0-30.0) sec Sodium (137-145) mmol/L Potassium 5.6 H (3.5-5.1) mmol/L Chloride 110 H (98-107) mmol/L Carbon Dioxide (22-30) mmol/L BUN 62 H (7-17) mg/dL Creatinine 2.37 H (0.52-1.04) mg/dL Glucose (74-99) mg/dL POC Glucose (mg/dL) (75-99) mg/dL Total Protein 5.9 L (6.3-8.2) g/dL Albumin 2.8 L (3.5-5.0) g/dL Ur Leukocyte Esterase (Negative) Assessment and Plan (1) Pressure injury of right heel, unstageable Current Visit: Yes Status: Acute Code(s): L89.610 - PRESSURE ULCER OF RIGHT HEEL, UNSTAGEABLE SNOMED Code(s): 725020247 (2) Pressure injury of coccygeal region, stage 2 Current Visit: Yes Status: Acute Code(s): L89.152 - PRESSURE ULCER OF SACRAL REGION, STAGE 2 SNOMED Code(s): 158913496 (3) Pressure ulcer of left buttock, stage 2 Current Visit: Yes Status: Acute Code(s): L89.322 - PRESSURE ULCER OF LEFT BUTTOCK, STAGE 2 SNOMED Code(s): 694907571 Plan: Apply triad to the midline coccyx ulceration daily. Apply Gabo: apply Santyl edge to edge a nickel and depth, saline moistened gauze to the left gluteal ulceration in the right calcaneus ulceration. Change the dressings daily. May apply zinc barrier cream to bilateral lower extremities anterior and posterior aspects as needed apply Arnoldo wrap for comfort. Utilize waffle cushion when sitting. Assess surface algorithm for the appropriate surface. Turn patient every 2 hours. Utilize foam boots for right calcaneus for offloading. Patient to continue with wound care and outpatient setting. Thank you, for the consultation. Any questions please contact the wound care center DNP note has been reviewed and discussed with Dr. Baorne and the impression and plan of care has been directed as dictated.
--- NOTE | 2019-10-19 15:16 | XR ---
EXAMINATION TYPE: XR chest 1V portable DATE OF EXAM: 10/19/2019 HISTORY: Shortness of breath. COMPARISON: 10/18/2019 TECHNIQUE: Single view of the chest is submitted. FINDINGS: Demonstrated are scattered senescent parenchymal change. There is progressive pulmonary venous congestion increasing right lower lobe infiltrate. The right-si ded pleural effusion. Mild patchy density left lower lobe. The findings may reflect congestive failur e cannot exclude infiltrates of other etiology. Correlate clinically. Hilar and mediastinal structures are within normal limits. Degenerative changes are seen of the dorsal spine. IMPRESSION: 1. There is progressive pulmonary venous congestion increasing right lower lobe infiltrate. The righ t-sided pleural effusion. Mild patchy density left lower lobe. The findings may reflect congestive fa ilure cannot exclude infiltrates of other etiology. Correlate clinically.
[2019-10-19] MEDS ORDERED: FUROSEMIDE 10 MG/ML 4 ML VIAL IV STA (15:25)
[2019-10-19 16:42] LABS: Glucose,Whole Blood 126 mg/dL (75-99)
--- NOTE | 2019-10-19 16:42 | HP ---
HISTORY AND PHYSICAL CHIEF COMPLAINT: Shortness of breath. HISTORY OF PRESENT ILLNESS: This is another recent admission for this 79-year-old white female from [facility]. She started to become more and more short of breath. Lasix was ordered, but she continued to be become more dyspneic. She had no chest pain, fever, chills, cough, etc. She has been experiencing increased ankle edema. She came to the emergency room where she was found to be in acute renal failure with elevated potassium and also congestive heart failure. BNP was 6000. Review of systems cannot be well obtained because she seems slightly confused. She denies chest pain, abdominal pain, nausea, vomiting, diarrhea, melena, hematochezia, etc. She denies dysuria. Past medical history, family history personal and social histories can be found in her recent hospital records where she was admitted and treated for rhabdomyolysis for which she is being rehabbed in the pen[facility]. She is allergic to PENICILLIN. Medications can be found in her [facility] from the penitentiary. PHYSICAL EXAMINATION: Blood pressure is 118/54 with a pulse of 72, respirations of 34, and she is afebrile. In general, she appeared to be dehydrated and slightly pale. She seemed was lethargic and not completely appropriate. Head, ears, eyes, nose, mouth, and throat were normal. The chest was clear. The cardiac exam demonstrated what sounded like sinus tachycardia. Abdomen is soft, nontender. Extremities are normal. IMPRESSION: 1. Acute congestive heart failure. 2. Acute kidney injury with renal failure. 3. Prerenal azotemia. 4. Recent episode of rhabdomyolysis. 5. Hyperkalemia. PLAN: 1. Bed rest. 2. IV fluids and rehydrate. 3. Manage congestive heart failure. 4. Manage diabetes. MMODL / IJN: [id number] /
--- NOTE | 2019-10-19 17:27 | PN ---
PROGRESS NOTE DATE OF SERVICE: 10/18/2009 CHIEF COMPLAINT: Acute congestive heart failure, renal failure and hyperkalemia. HISTORY OF PRESENT ILLNESS: This lady is lethargic, but not complaining of any chest pain, shortness of breath, abdominal pain, etc. PHYSICAL EXAMINATION: She is pale. Chest demonstrates decreased breath sounds due to poor inspiratory effort. Cardiac exam is normal and the abdomen is soft. IMPRESSION: 1. Acute congestive heart failure. 2. Dehydration. 3. Prerenal azotemia. 4. Chronic kidney disease. 5. Diabetes. 6. Hyperkalemia. PLAN: Continue to rehydrate and at the same time keeping an eye on her congestive heart failure. MMODL / IJN: [id number] /
[2019-10-19] MEDS: HYDROPHILIC CREAM 180 GM TUBE TOPICAL SCH (18:16)
[2019-10-19] MEDS: ASPIRIN 325 MG TAB PO SCH (18:24)
--- NOTE | 2019-10-19 18:42 | CONS ---
CONSULTATION REASON FOR CONSULT: Renal failure. HISTORY OF PRESENT ILLNESS: Patient is a 79-year-old female with a history of hypertension, type 2 diabetes, COPD. Patient was admitted to the hospital with complaints of having had abnormal labs as outpatient. She does have a history of CHF and a previous history of rhabdomyolysis. The BNP was noted to be 5000 as outpatient. Patient did state that she was mildly short of breath. She was also quite hyperkalemic with a potassium of 6.5 mEq/L initially. Currently it is down to 5.6. Patient was maintained on Cozaar prior to admission. She also admitted to having used nonsteroidal anti-inflammatory agents. Patient denies any change in her urine output. She states that she has been voiding. Blood pressure has been low, with systolic at 97 mmHg on initial admission. Of note, I also see that patient was on Bactrim prior to admission. This will also contribute to the hyperkalemia. PAST MEDICAL HISTORY: Diabetes, hypertension, recent hospitalization on 10/02/2019 for rhabdomyolysis. Current CK is at 39. Previous CPK level last month was 3065. MEDICATIONS: Medications prior to admission included Coreg, Synthroid, Cozaar, insulin. I do see Bactrim on the home med list and Coreg. SOCIAL HISTORY: Negative for smoking, drug abuse or alcohol abuse. LABS: Labs show sodium 136, potassium 5.8. Current potassium 5.6, chloride 110, BUN 62, creatinine 2.37, hemoglobin 8.8 g/dL. UA negative for blood, protein or cells. ASSESSMENT: 1. Acute kidney injury associated with hypotension, hypoperfusion, use of NSAIDs as well as Bactrim in the setting of use of angiotensin receptor blockers, currently slowly improving. Patient is nonoliguric. I will hold off on the Cozaar for now and avoid any NSAIDs. Previous creatinine was 1.39 on 10/11/2019. 2. Hyperkalemia associated with acute kidney injury, use of angiotensin receptor blockers, Bactrim as well as NSAIDs, currently slowly improving. 3. Rule out chronic kidney disease, stage III, secondary to nephrosclerosis. No evidence of proteinuria. 4. Recent history of rhabdomyolysis last month. 5. Pressure ulcer, stage II, left buttock area. PLAN: Continue to hold off on angiotensin receptor blockers. Avoid use of NSAIDs. Repeat labs in a.m. Avoid hypotension. Continue IV fluids and repeat labs in a.m. Thank you for this consultation. Will continue to follow the patient with you during her hospitalization. MMIRVINL / IJN: [id number] /
[2019-10-19] MEDS: COLLAGENASE 250 UNIT/GM OINTMENT 30 GM TUBE TOPICAL SCH (20:14)
[2019-10-19] MEDS: NYSTATIN 100,000UNIT/GM CREAM 30 GM TUBE TOPICAL SCH (20:15)
[2019-10-19 20:39] LABS: Glucose,Whole Blood 167 mg/dL (75-99)
[2019-10-19 22:37] LABS: % Iron Saturation 8.18 (12.00-45.00)
[2019-10-20] MEDS: LEVOTHYROXINE 100 MCG TAB PO SCH (05:46)
[2019-10-20 06:48] LABS: Glucose,Whole Blood 120 mg/dL (75-99)
[2019-10-20] MEDS: INSULIN ASPART (NovoLOG) 100 UNIT/ML VIAL SQ SCH ×3 (07:14→17:15)
[2019-10-20] MEDS: INSULIN DETEMIR (LEVEMIR) 100 UNIT/ML SYR SQ SCH (07:14)
[2019-10-20] MEDS ORDERED: LOSARTAN 50 MG TAB PO SCH (08:00)
[2019-10-20] MEDS: CARVEDILOL 12.5 MG TAB PO SCH (08:39)
[2019-10-20 10:38] LABS: Calcium 8.6 mg/dL (8.4-10.2); Potassium 5.8 mmol/L (3.5-5.1)
--- NOTE | 2019-10-20 11:14 | PN ---
PROGRESS NOTE CHIEF COMPLAINT: Renal failure, hyperkalemia, diabetes. HISTORY OF PRESENT ILLNESS: This lady is a little bit more alert and feeling slightly better. She has had no chest pain, no fever or chills, shortness of breath, etc. Renal function is staying about the same. PHYSICAL EXAMINATION: Hydration is adequate. She is slightly pale. Vital signs are normal. Chest is clear and the cardiac exam is normal and the abdomen is soft and nontender. Extremities are wrapped. IMPRESSION: 1. Prerenal azotemia. 2. Chronic renal failure. 3. Hyperkalemia. 4. Uncontrolled diabetes. 5. History of rhabdomyolysis. PLAN: Continue with IV fluids and continue to follow her potassium and renal function so she can return to the retirement. MMODL / IJN: [id number] /
[2019-10-20 12:01] LABS: Glucose,Whole Blood 69 mg/dL (75-99)
[2019-10-20] MEDS: NYSTATIN 100,000UNIT/GM CREAM 30 GM TUBE TOPICAL SCH ×2 (12:09→20:46)
[2019-10-20 12:21] LABS: Glucose,Whole Blood 83 mg/dL (75-99)
--- NOTE | 2019-10-20 15:48 | PN ---
PROGRESS NOTE Patient is seen for followup for acute kidney injury. Her renal function continues to improve. Creatinine is down from 2.6 to 2.1 mg/dL now. Previous creatinine was about 1.3 to 1.5 mg/dL in September of 2019. Serum potassium was elevated at 5.8. Patient is incontinent. Her blood sugar is not elevated. She is maintained on small dose of oral Lasix. Cozaar was decreased yesterday. Patient is maintained on IV fluids at 60 mL/hour. PHYSICAL EXAMINATION: On examination today, patient is comfortable. Blood pressure is 137/60, heart rate 70 per minute. She is afebrile. EXAMINATION OF THE HEART: S1 and S2. EXAMINATION OF LUNGS: Bilateral breath sounds are heard. ABDOMEN: Soft, non-tender. Examination of lower extremities shows edema 1+ bilaterally. ENVIRONMENTAL PROGRAM MANAGER exam is grossly intact. LABS: Labs show sodium 138, potassium 5.8, chloride 109, CO2 is 23, BUN 57, creatinine 2.14, calcium 8.6. ASSESSMENT: 1. Acute kidney injury associated with hypotension, hypoperfusion, use of NSAIDs and Bactrim along with angiotensin receptor blockers, currently improved. 2. Hyperkalemia, initially improved. Potassium is elevated again. Check post-void residual. Rule out urine retention, which will contribute to the hyperkalemia. I will also give her a dose of IV Lasix, which will help with the hyperkalemia. Blood sugars are not elevated. 3. Possible chronic kidney disease, stage III, secondary to nephrosclerosis. 4. History of recent rhabdomyolysis last month. 5. Pressure ulcer, stage II, left buttock area. PLAN: Continue off of Cozaar. IV Lasix x1 today. Maintain low-potassium diet. Continue to hold off on angiotensin receptor blockers and avoid NSAIDs and Bactrim. Repeat labs in a.m. MMODL / IJN: [id number] /
[2019-10-20 17:00] LABS: Glucose,Whole Blood 71 mg/dL (75-99)
[2019-10-20] MEDS: ASPIRIN 325 MG TAB PO SCH (17:19)
[2019-10-20] MEDS: FUROSEMIDE 10 MG/ML 4 ML VIAL IV SCH (17:19)
[2019-10-20] MEDS: COLLAGENASE 250 UNIT/GM OINTMENT 30 GM TUBE TOPICAL SCH (17:21)
[2019-10-20] MEDS: HYDROPHILIC CREAM 180 GM TUBE TOPICAL SCH (17:21)
[2019-10-20] MEDS ORDERED: ACETAMINOPHEN TAB 325 MG TAB PO PRN (20:42)
[2019-10-20 21:01] LABS: Glucose,Whole Blood 116 mg/dL (75-99)
[2019-10-20 22:54] VITALS: RESP 18
[2019-10-21 06:54] LABS: Glucose,Whole Blood 74 mg/dL (75-99)
[2019-10-21] MEDS: LEVOTHYROXINE 100 MCG TAB PO SCH (07:00)
[2019-10-21] MEDS: INSULIN ASPART (NovoLOG) 100 UNIT/ML VIAL SQ SCH ×2 (07:19→12:18)
[2019-10-21] MEDS: INSULIN DETEMIR (LEVEMIR) 100 UNIT/ML SYR SQ SCH (07:19)
[2019-10-21] MEDS: CARVEDILOL 12.5 MG TAB PO SCH (08:42)
[2019-10-21] MEDS: FUROSEMIDE 10 MG/ML 4 ML VIAL IV SCH (08:42)
[2019-10-21] MEDS ORDERED: FUROSEMIDE 20 MG TAB PO SCH (09:00)
[2019-10-21] MEDS: SODIUM CHLORIDE 0.9% 1,000 ML IV SCH (10:21)
[2019-10-21 11:14] LABS: Potassium 5.5 mmol/L (3.5-5.1)
[2019-10-21 12:15] LABS: Glucose,Whole Blood 120 mg/dL (75-99)
[2019-10-21] MEDS: COLLAGENASE 250 UNIT/GM OINTMENT 30 GM TUBE TOPICAL SCH (12:17)
[2019-10-21] MEDS: NYSTATIN 100,000UNIT/GM CREAM 30 GM TUBE TOPICAL SCH (12:17)
[2019-10-21] MEDS: HYDROPHILIC CREAM 180 GM TUBE TOPICAL SCH (12:17)
[2019-10-21 13:13] VITALS: BP 129/83; PULSE 62; TEMP 97.5
--- NOTE | 2019-10-21 13:13 | PN ---
PROGRESS NOTE DATE OF SERVICE: 10/21/2019 CHIEF COMPLAINT: Prerenal azotemia, renal failure, and hyperkalemia. HISTORY OF PRESENT ILLNESS: This lady is doing fairly well and is fairly well stabilized now. BUN and creatinine are down. Potassium is under good control. She is awake and alert. PHYSICAL EXAMINATION: Her chest is clear. The cardiac exam is normal. The abdomen is soft and nontender. IMPRESSION: 1. Acute kidney injury. 2. Prerenal azotemia. 3. Hyperkalemia. 4. Recent episode of rhabdomyolysis. 5. Diabetes mellitus. PLAN: She can probably go back to the detention just about any time. MMODL / IJN: [id number] /
--- NOTE | 2019-10-21 13:22 | DS ---
DISCHARGE SUMMARY CHIEF COMPLAINT: Dehydration, hyperkalemia. HISTORY OF PRESENT ILLNESS AND PHYSICAL EXAMINATION: Details of this lady's history and physical can be found in the initial workup. LABORATORY STUDIES: While she was in the hospital she had laboratory studies, details of which can be found in the laboratory section of her chart. COURSE IN THE HOSPITAL: After admission, she was placed on bed rest and started on intravenous fluids, and as she was rehydrated her potassium came down, as did her kidney function. She became more awake and alert and steadily improved and was eating and it was felt that she was stable enough to return to the prison. She will go there on her usual activity, diet, medication, and continued management of her left buttock decubitus. FINAL DIAGNOSES: 1. Acute kidney injury. 2. Prerenal azotemia. 3. Chronic kidney disease. 4. Hyperkalemia. 5. Recent rhabdomyolysis. 6. Decubitus of the left buttock. 7. Mild dementia. OPERATIONS: None. CONSULTATIONS: Nephrology. She is improved. MMODVinny / IJN: [id number] /
[2019-10-21 14:14] VITALS: BMI 38.5
--- NOTE | 2019-10-21 16:03 | PN ---
PROGRESS NOTE Patient is seen for followup for acute kidney injury. Her renal function continues to improve. The patient still remains mildly hyperkalemic. Potassium is slightly better at 5.5 from 5.8 yesterday. I had asked for a postvoid residual and it does not appear that patient has urine retention, although I do not see documented. On examination, blood pressure was 153/67, heart rate 66 per minute, she is afebrile. EXAMINATION OF THE HEART: S1 and S2. EXAMINATION OF THE LUNGS: Decreased breath sounds at the bases. ABDOMEN: Soft and nontender. Examination of the extremities shows edema 2+ bilaterally. FORCER MAKER exam grossly intact. LABS: Sodium 139, potassium 5.5, chloride 109, CO2 27, BUN 51, creatinine 1.96. ASSESSMENT: 1. Acute kidney injury associated with hypotension, hypoperfusion, nonsteroidal anti- inflammatory drugs, and angiotensin receptor blockers, currently improved. 2. Hyperkalemia secondary to #1. 3. Possible underlying chronic kidney disease secondary to nephrosclerosis, stage 3. Previous creatinine has been as low as 1.5 in September 2019. PLAN: Continue to diurese patient with IV diuretics as long as she is in the hospital. Switch to oral diuretics at the time of discharge. At home, patient was on 40 mg daily of Lasix, she will likely need it to be increased to 40 mg b.i.d. Monitor blood pressure closely as outpatient to void hypotension. MMODL / IJN: [id number] /
[2019-10-22] MEDS ORDERED: INSULIN DETEMIR (LEVEMIR) 100 UNIT/ML SYR SQ SCH (07:00)
--- NOTE | 2019-10-22 11:56 | CDI ---
Documentation Clarification Form Date: 10/22/19 From: Saundra Daley CCS Phone: If you have a question about this query, please contact Jaymie Doshi, Dragline Mechanic at [phone] between 8am and 5pm. Admit Date: 10/18/19 Discharge Date:10/21/19 Patient Name: Jane Malone Visit Number: [id number] ATTENTION: The Clinical Documentation Specialists (CDI) and [facility] Coding Staff appreciate your assistance in clarifying documentation. Please respond to the clarification below the line at the bottom and electronically sign. The CDI & [facility] Coding staff will review the response and follow-up if needed. Please note: Queries are made part of the Legal Health Record. If you have any questions, please contact the author of this message via ITS. Dear Dr. Fleming, Acute CHF is documented in the ED, Consult, H&P. History/Risk Factors: HTN, DM, CKD, COPD Clinical Indicators: Edema, Shortness of breath VS/Pulse OX: BP 144/54, RR 16, SD 56, O2 Sat 96 BNP: 6,000 Chest X Ray: There is progressive pulmonary venous congestion increasing right lower lobe infiltrate.The right-sided pleural effusion.Mild patchy density left lower lobe.The findings may reflect congestive failure cannot exclude infiltrates of other etiology.Correlate clinically. Treatment: Lasix 40 mg IV daily In your professional opinion, can you please clarify the type of acute CHF if known? Systolic Heart Failure: Acute Acute on Chronic Diastolic Heart Failure: Acute Acute on Chronic Systolic & Diastolic Heart Failure: Acute Acute on Chronic Heart Failure Unable to Determine Other, please specify MTDD
--- NOTE | 2019-10-25 11:52 | MISC ---
MISCELLANOUS REPORT QUERY: Type of heart failure, unable to determine. MMODL / IJN: [id number] /
--- NOTE | 2019-10-26 12:42 | CDI ---
Documentation Clarification Form Date: 10/26/2019 12:38:41 PM From: Aimee Duarte RN, CCDS Admit Date: 10/18/2019 06:29:00 PM Patient Name: Jane Malone Visit Number: [id number] Discharge Date: 10/21/2019 04:18:00 PM ATTENTION: The Clinical Documentation Specialists (CDI) and [facility] Coding Staff appreciate your assistance in clarifying documentation. Please respond to the clarification below the line at the bottom and electronically sign. The CDI & [facility] Coding staff will review the response and follow-up if needed. Please note: Queries are made part of the Legal Health Record. If you have any questions, please contact the author of this message via ITS. Dr. Faisal Fleming 10/17 ED Note: "Patient will be tested for Covid 19." Patient history/risk factors: 79 y/o [facility] with SOB and Dyspnea, acute CHF, HUBER on CKD stage 3, DM2, BMI 38.5 Clinical Indicators: 10/19/2019 Coronavirus PCR: not detected 10/18 CXR:"There is progressive pulmonary venous congestion increasing right lower lobe infiltrate. The right-sided pleural effusion. Mild patchy density left lower lobe. The findings may reflect congestive failure cannot exclude infiltrates of other etiology." Labs: WBC 5.1/6.5 Vital Signs: 97.9, HR 57, RR 16, B/P 128/68, Spo2 94% ra Treatment: 10/18 Zithromax 500 mg IVPB x 1 10/18 & 10/19 Lasix 40 mg IVP QD decreased on 10/20 to Lasix 20 mg PO QD In order to capture the severity of condition, please clarify if the above treatment/clinical indicators signify: COVID-19 ruled out Other, please specify Unable to determine (Last Form Revision: September 2019) MTDD
--- NOTE | 2019-10-27 22:09 | MISC ---
MISCELLANOUS REPORT QUERY: COVID-19 ruled out. MMODL / IJN: [id number] /
== END 2019-10-21 16:18 | DRG 683 ==
LOC: EC 17:11 → 3SCARD 18:29
PROVIDERS: ADMIT Family Medicine; ATTEND Family Medicine
DX: N17.9 Acute kidney failure, unspecified (principal); I13.0 Hypertensive heart and chronic kidney disease with heart failure and stage 1 through stage 4 chronic kidney disease, or unspecified chronic kidney disease; L89.152 Pressure ulcer of sacral region, stage 2; L89.322 Pressure ulcer of left buttock, stage 2; L89.610 Pressure ulcer of right heel, unstageable; I95.9 Hypotension, unspecified; E86.0 Dehydration; E11.22 Type 2 diabetes mellitus with diabetic chronic kidney disease; N18.3 Chronic kidney disease, stage 3 (moderate); I50.9 Heart failure, unspecified; F03.90 Unspecified dementia, unspecified severity, without behavioral disturbance, psychotic disturbance, mood disturbance, and anxiety; E87.5 Hyperkalemia; E78.5 Hyperlipidemia, unspecified; D72.810 Lymphocytopenia; R00.1 Bradycardia, unspecified; M19.90 Unspecified osteoarthritis, unspecified site; E07.9 Disorder of thyroid, unspecified; K44.9 Diaphragmatic hernia without obstruction or gangrene; R32 Unspecified urinary incontinence; K58.9 Irritable bowel syndrome, unspecified; J44.9 Chronic obstructive pulmonary disease, unspecified; E11.65 Type 2 diabetes mellitus with hyperglycemia; Z20.828 Contact with and (suspected) exposure to other viral communicable diseases; T39.395A Adverse effect of other nonsteroidal anti-inflammatory drugs [NSAID], initial encounter; T36.8X5A Adverse effect of other systemic antibiotics, initial encounter; Z71.3 Dietary counseling and surveillance; Z79.899 Other long term (current) drug therapy; Z79.890 Hormone replacement therapy; Z79.82 Long term (current) use of aspirin; Z79.4 Long term (current) use of insulin; Z90.49 Acquired absence of other specified parts of digestive tract; Z98.890 Other specified postprocedural states; Z87.891 Personal history of nicotine dependence; Z87.2 Personal history of diseases of the skin and subcutaneous tissue; Z87.01 Personal history of pneumonia (recurrent); Z87.39 Personal history of other diseases of the musculoskeletal system and connective tissue; Z88.0 Allergy status to penicillin; Z82.49 Family history of ischemic heart disease and other diseases of the circulatory system; Z80.0 Family history of malignant neoplasm of digestive organs
CPT/HCPCS: 36415; 71045; 80048; 80053; 81001; 82550; 83540; 83550; 83605; 85025; 85610; 85730; 87040; 87635; 93005; 94640; 96365; 96366; 96375; 96376; 99285

== ENCOUNTER 2019-11-07 22:10 | Inpatient (IN) | payer MEDICARE ==
--- NOTE | 2019-11-07 22:49 | ED ---
General Adult HPI - General Source: EMS, RN notes reviewed Mode of arrival: EMS Limitations: no limitations <Rosendo Fallon - Last Filed: 11/07/19 23:02> <Pia Barragan - Last Filed: 11/08/19 03:17> - General Chief complaint: Weakness Stated complaint: Infection Time Seen by Provider: 11/07/19 22:14 - History of Present Illness Initial comments: Patient is a pleasant 79-year-old female presenting to the emergency department by EMS for weakness. Patient fell out of her chair a few hours ago and was lying on the ground. Patient feels weak all over. Patient does have known infection of her ankle. Patient complains of discomfort there. Patient states [facility]. Patient does have history of similar symptoms previously. No fevers. No dyspnea. No slight area of weakness. (Rosendo Fallon) - Related Data Home Medications Medication Instructions Recorded Confirmed Carvedilol [Coreg*] 12.5 mg PO DAILY@0800 10/02/19 10/18/19 Levothyroxine Sodium 100 mcg PO DAILY@0600 10/02/19 10/18/19 Losartan [Cozaar] 50 mg PO DAILY@0800 10/02/19 10/18/19 Acetaminophen [Tylenol] 650 mg PO Q4H PRN 10/18/19 10/18/19 Aspirin EC [Ecotrin] 325 mg PO DAILY@1700 10/18/19 10/18/19 Bisacodyl [Dulcolax] 10 mg RECTAL DAILY PRN 10/18/19 10/18/19 Collagenase [Santyl] 1 applic TOPICAL DAILY 10/18/19 10/18/19 Furosemide [Lasix] 40 mg PO DAILY@0800 10/18/19 10/18/19 Glucerna Shake 1 can PO BID@0800,1700 10/18/19 10/18/19 INSULIN ASPART (NovoLOG) [NovoLOG 5 unit SQ AC-TID 10/18/19 10/18/19 (formulary)] Liquacel 30 ml PO BID@0800,1700 10/18/19 10/18/19 Magnesium Hydroxide [Milk of 7,200 mg PO DAILY PRN 10/18/19 10/18/19 Magnesia Concentrate] Na Phos,M-B/Na Phos,Di-Ba [Fleet 133 ml RECTAL DAILY PRN 10/18/19 10/18/19 Adult] Nystatin 100,000Unit/gm Cream 1 applic TOPICAL BID@0800,2100 10/18/19 10/18/19 [Mycostatin Cream] Sulfamethox-Tmp 800-160Mg [Bactrim 1 tab PO BID@0800,1700 10/18/19 10/18/19 DS 800-160 mg] amLODIPine [Norvasc] 10 mg PO DAILY@0800 10/18/19 10/18/19 Previous Rx's Medication Instructions Recorded Insulin Detemir (Levemir) [Levemir] 20 unit SQ DAILY@0700 90 Days #1 10/05/19 pen Allergies Allergy/AdvReac Type Severity Reaction Status Date / Time Penicillins Allergy Rash/Hives Verified 11/07/19 22:38 Review of Systems ROS Other: All systems not noted in ROS Statement are negative. Constitutional: Denies: fever Eyes: Denies: eye pain ENT: Denies: ear pain Respiratory: Denies: cough, dyspnea Cardiovascular: Denies: chest pain Endocrine: Reports: fatigue Gastrointestinal: Denies: abdominal pain Genitourinary: Denies: dysuria Musculoskeletal: Denies: back pain Skin: Reports: as per HPI Neurological: Reports: as per HPI <Rosendo Fallon - Last Filed: 11/07/19 23:02> ROS Other: All systems not noted in ROS Statement are negative. <Pia Barragan - Last Filed: 11/08/19 03:17> ROS Statement: Those systems with pertinent positive or pertinent negative responses have been documented in the HPI. Past Medical History Past Medical History: Heart Failure, COPD, Diabetes Mellitus, Hyperlipidemia, Hypertension, Osteoarthritis (OA), Pneumonia, Skin Disorder, Thyroid Disorder Additional Past Medical History / Comment(s): PUL EDEMA, HIATL HERNIA, EDEMA TO LEGS AND BREAKDOWN/BLISTERS TO MARTÍN LEGS, IBS, EDEMA TO BILAT LE'S History of Any Multi-Drug Resistant Organisms: None Reported Past Surgical History: Cholecystectomy, Tonsillectomy Additional Past Surgical History / Comment(s): neck SX REMOVED BENIGN MASS OUT, RT BREAST BX-BENIGN, LASER EYE SX THINKS ON HER RT EYE. Past Anesthesia/Blood Transfusion Reactions: No Reported Reaction Past Psychological History: No Psychological Hx Reported Smoking Status: Former smoker Past Alcohol Use History: None Reported Past Drug Use History: None Reported - Past Family History Father Family Medical History: Hypertension, Myocardial Infarction (OR) Additional Family Medical History / Comment(s): X3 OR, Mother Family Medical History: Cancer Additional Family Medical History / Comment(s): DIES FROM COLON CA <Rosendo Fallon - Last Filed: 11/07/19 23:02> General Exam Limitations: no limitations General appearance: alert, in no apparent distress Head exam: Present: normocephalic Eye exam: Present: normal appearance Neck exam: Present: normal inspection Respiratory exam: Present: normal lung sounds bilaterally Cardiovascular Exam: Present: regular rate, normal rhythm GI/Abdominal exam: Present: soft. Absent: tenderness Extremities exam: Present: normal inspection Neurological exam: Present: alert. Absent: motor sensory deficit Psychiatric exam: Present: normal affect, normal mood Skin exam: Present: other (Right ankle eschar approximately 4 cm with some surrounding cellulitic change. Sacral ulcer.) <Rosendo Fallon - Last Filed: 11/07/19 23:02> Course Vital Signs 11/07/19 11/08/19 11/08/19 22:11 00:12 00:52 Temperature 94.7 F L 94.4 F L Pulse Rate 80 77 Respiratory 18 17 Rate Blood Pressure 150/58 116/63 O2 Sat by Pulse 99 97 Oximetry EKG Findings - EKG Comments: EKG Findings:: Normal sinus rhythm 72. DE 16 he 4. QRS 80. QT 398. QTC 435. Normal axis. Normal QRS. No acute ST change. Motion artifact is present. <Rosendo Fallon - Last Filed: 11/07/19 23:02> Medical Decision Making - Lab Data Result diagrams: 11/07/19 22:48 11/07/19 22:48 <Pia Barragan - Last Filed: 11/08/19 03:17> - Medical Decision Making The patient was signed out to me by Dr. Fallon. I did review the patient's laboratory studies which were remarkable for a BUN of 107 with a creatinine of 3 .15. Patient was recently hospitalized and discharged with a creatinine of 1.5. Lactic acid is 2.3. CK 602. Urinalysis is clean. Coronavirus is not detected. I discussed results with the patient. I did recommend hospital admission for fluid hydration. She had been started on 130 mL per hour by Dr. Fallon. I will continue this rate. I discussed the case with Dr. Fleming who accepted admission for the patient. Patient was then transferred to the floor in stable condition (Pia Barragan) - Lab Data Lab Results 11/07/19 11/07/19 11/07/19 Range/Units 22:48 22:48 22:48 WBC 8.3 (3.8-10.6) k/uL RBC 3.45 L (3.80-5.40) m/uL Hgb 9.2 L (11.4-16.0) gm/dL Hct 29.4 L (34.0-46.0) % MCV 85.1 (80.0-100.0) fL MCH 26.8 (25.0-35.0) pg MCHC 31.5 (31.0-37.0) g/dL RDW 15.4 (11.5-15.5) % Plt Count 270 (150-450) k/uL Neutrophils % 80 % Lymphocytes % 7 % Monocytes % 10 % Eosinophils % 1 % Basophils % 0 % Neutrophils # 6.7 (1.3-7.7) k/uL Lymphocytes # 0.6 L (1.0-4.8) k/uL Monocytes # 0.8 (0-1.0) k/uL Eosinophils # 0.1 (0-0.7) k/uL Basophils # 0.0 (0-0.2) k/uL Hypochromasia Moderate PT (9.0-12.0) sec INR (<1.2) APTT (22.0-30.0) sec Sodium 132 L (137-145) mmol/L Potassium 5.2 H (3.5-5.1) mmol/L Chloride 101 (98-107) mmol/L Carbon Dioxide 18 L (22-30) mmol/L Anion Gap 13 mmol/L BUN 107 H* (7-17) mg/dL Creatinine 3.15 H (0.52-1.04) mg/dL Est GFR (CKD-EPI)AfAm 15 (>60 ml/min/1.73 sqM) Est GFR (CKD-EPI)NonAf 13 (>60 ml/min/1.73 sqM) Glucose 274 H (74-99) mg/dL Lactic Ac Sepsis Rflx Plasma Lactic Acid Yvan (0.7-2.0) mmol/L Calcium 8.9 (8.4-10.2) mg/dL Total Bilirubin 0.3 (0.2-1.3) mg/dL AST 28 (14-36) U/L ALT 10 (4-34) U/L Alkaline Phosphatase 125 (38-126) U/L Creatine Kinase 602 H (30-135) U/L Total Protein 6.3 (6.3-8.2) g/dL Albumin 3.2 L (3.5-5.0) g/dL Urine Color Yellow Urine Appearance Clear (Clear) Urine pH 5.0 (5.0-8.0) Ur Specific [place] 1.017 (1.001-1.035) Urine Protein Negative (Negative) Urine Glucose (UA) Negative (Negative) Urine Ketones Negative (Negative) Urine Blood Negative (Negative) Urine Nitrite Negative (Negative) Urine Bilirubin Negative (Negative) Urine Urobilinogen <2.0 (<2.0) mg/dL Ur Leukocyte Esterase Negative (Negative) Coronavirus (PCR) (Not Detectd) 11/07/19 11/07/19 11/07/19 Range/Units 22:48 22:48 23:19 WBC (3.8-10.6) k/uL RBC (3.80-5.40) m/uL Hgb (11.4-16.0) gm/dL Hct (34.0-46.0) % MCV (80.0-100.0) fL MCH (25.0-35.0) pg MCHC (31.0-37.0) g/dL RDW (11.5-15.5) % Plt Count (150-450) k/uL Neutrophils % % Lymphocytes % % Monocytes % % Eosinophils % % Basophils % % Neutrophils # (1.3-7.7) k/uL Lymphocytes # (1.0-4.8) k/uL Monocytes # (0-1.0) k/uL Eosinophils # (0-0.7) k/uL Basophils # (0-0.2) k/uL Hypochromasia PT (9.0-12.0) sec INR (<1.2) APTT (22.0-30.0) sec Sodium (137-145) mmol/L Potassium (3.5-5.1) mmol/L Chloride (98-107) mmol/L Carbon Dioxide (22-30) mmol/L Anion Gap mmol/L BUN (7-17) mg/dL Creatinine (0.52-1.04) mg/dL Est GFR (CKD-EPI)AfAm (>60 ml/min/1.73 sqM) Est GFR (CKD-EPI)NonAf (>60 ml/min/1.73 sqM) Glucose (74-99) mg/dL Lactic Ac Sepsis Rflx Y Plasma Lactic Acid Yvan 2.3 H* (0.7-2.0) mmol/L Calcium (8.4-10.2) mg/dL Total Bilirubin (0.2-1.3) mg/dL AST (14-36) U/L ALT (4-34) U/L Alkaline Phosphatase (38-126) U/L Creatine Kinase (30-135) U/L Total Protein (6.3-8.2) g/dL Albumin (3.5-5.0) g/dL Urine Color Urine Appearance (Clear) Urine pH (5.0-8.0) Ur Specific [place] (1.001-1.035) Urine Protein (Negative) Urine Glucose (UA) (Negative) Urine Ketones (Negative) Urine Blood (Negative) Urine Nitrite (Negative) Urine Bilirubin (Negative) Urine Urobilinogen (<2.0) mg/dL Ur Leukocyte Esterase (Negative) Coronavirus (PCR) Not Detected (Not Detectd) 11/07/19 Range/Units 23:30 WBC (3.8-10.6) k/uL RBC (3.80-5.40) m/uL Hgb (11.4-16.0) gm/dL Hct (34.0-46.0) % MCV (80.0-100.0) fL MCH (25.0-35.0) pg MCHC (31.0-37.0) g/dL RDW (11.5-15.5) % Plt Count (150-450) k/uL Neutrophils % % Lymphocytes % % Monocytes % % Eosinophils % % Basophils % % Neutrophils # (1.3-7.7) k/uL Lymphocytes # (1.0-4.8) k/uL Monocytes # (0-1.0) k/uL Eosinophils # (0-0.7) k/uL Basophils # (0-0.2) k/uL Hypochromasia PT 10.4 (9.0-12.0) sec INR 1.0 (<1.2) APTT 19.2 L (22.0-30.0) sec Sodium (137-145) mmol/L Potassium (3.5-5.1) mmol/L Chloride (98-107) mmol/L Carbon Dioxide (22-30) mmol/L Anion Gap mmol/L BUN (7-17) mg/dL Creatinine (0.52-1.04) mg/dL Est GFR (CKD-EPI)AfAm (>60 ml/min/1.73 sqM) Est GFR (CKD-EPI)NonAf (>60 ml/min/1.73 sqM) Glucose (74-99) mg/dL Lactic Ac Sepsis Rflx Plasma Lactic Acid Yvan (0.7-2.0) mmol/L Calcium (8.4-10.2) mg/dL Total Bilirubin (0.2-1.3) mg/dL AST (14-36) U/L ALT (4-34) U/L Alkaline Phosphatase (38-126) U/L Creatine Kinase (30-135) U/L Total Protein (6.3-8.2) g/dL Albumin (3.5-5.0) g/dL Urine Color Urine Appearance (Clear) Urine pH (5.0-8.0) Ur Specific [place] (1.001-1.035) Urine Protein (Negative) Urine Glucose (UA) (Negative) Urine Ketones (Negative) Urine Blood (Negative) Urine Nitrite (Negative) Urine Bilirubin (Negative) Urine Urobilinogen (<2.0) mg/dL Ur Leukocyte Esterase (Negative) Coronavirus (PCR) (Not Detectd) Disposition <Rosendo Fallon - Last Filed: 11/07/19 23:02> Is patient prescribed a controlled substance at d/c from ED?: No Decision to Admit Reason: Admit from EC Decision Date: 11/08/19 Decision Time: 00:19 <Pia Barragan - Last Filed: 11/08/19 03:17> Clinical Impression: Pressure injury of right heel, unstageable, HUBER (acute kidney injury), Hyperkalemia, Fall, Hypothermia Disposition: ADMITTED IP TO THIS HOSP Condition: Stable
[2019-11-07] MEDS: SODIUM CHLORIDE 0.9% 1,000 ML IV SCH (22:52)
[2019-11-07 22:59] LABS: Appearance,Urine Clear (Clear); Bilirubin,Urine Negative (Negative); Blood,Urine Negative (Negative); Color,Urine Yellow; Glucose,Urine (UA) Negative (Negative); Ketones,Urine Negative (Negative); Leukocyte Esterase,Urine Negative (Negative); Nitrite,Urine Negative (Negative); Protein,Urine Negative (Negative); Specific Gravity,Urine 1.017 (1.001-1.035); Urobilinogen,Urine <2.0 mg/dL (<2.0)
[2019-11-07 23:05] LABS: Basophils % (A) 0 %; Eosinophils # (A) 0.1 k/uL (0-0.7); Eosinophils % (A) 1 %; HCT 29.4 % (34.0-46.0); HGB 9.2 gm/dL (11.4-16.0); Hypochromasia Moderate; Lymphocytes # (A) 0.6 k/uL (1.0-4.8); Lymphocytes % (A) 7 %; MCH 26.8 pg (25.0-35.0); MCHC 31.5 g/dL (31.0-37.0); MCV 85.1 fL (80.0-100.0); Mean Platelet Volume 8.5; Monocytes # (A) 0.8 k/uL (0-1.0); Monocytes % (A) 10 %; Neutrophils # (A) 6.7 k/uL (1.3-7.7); Neutrophils % (A) 80 %; Platelet Count 270 k/uL (150-450); RBC 3.45 m/uL (3.80-5.40); RDW 15.4 % (11.5-15.5); WBC 8.3 k/uL (3.8-10.6)
[2019-11-07 23:07] LABS: Albumin 3.2 g/dL (3.5-5.0); Calcium 8.9 mg/dL (8.4-10.2); Potassium 5.2 mmol/L (3.5-5.1); Total Bilirubin 0.3 mg/dL (0.2-1.3); Total Protein 6.3 g/dL (6.3-8.2)
--- NOTE | 2019-11-07 23:57 | XR ---
EXAMINATION TYPE: XR sacrum coccyx DATE OF EXAM: 11/07/2019 COMPARISON: NONE HISTORY: Weakness TECHNIQUE: 3 views FINDINGS: Segments have normal alignment. I see no fracture. Sacroiliac joints appear intact. IMPRESSION: Negative sacrum and coccyx exam. No focal bone destruction seen.
--- NOTE | 2019-11-07 23:58 | XR ---
EXAMINATION TYPE: XR foot complete RT DATE OF EXAM: 11/07/2019 COMPARISON: NONE HISTORY: Weakness TECHNIQUE: 3 views FINDINGS: There is soft tissue swelling of the forefoot. There is a large plantar calcaneal spur. Met atarsals appear intact. I see no fracture nor dislocation. IMPRESSION: Soft tissue swelling. No fracture. No sign of osteomyelitis.
[2019-11-07 23:59] LABS: Prothrombin Time 10.4 sec (9.0-12.0)
--- NOTE | 2019-11-08 | XR ---
EXAMINATION TYPE: XR chest 1V portable DATE OF EXAM: 11/07/2019 COMPARISON: 10/19/2019 HISTORY: Heart failure. Short of breath TECHNIQUE: FINDINGS: There is mild blunting left costophrenic angle. Heart size is normal. Thoracic aorta is ath eromatous. Right lung is clear. There are chest leads. There is no heart failure. IMPRESSION: Small left pleural effusion. There is significant clearing of the congestive heart failur e compared to old exam.
[2019-11-08 00:02] LABS: Partial Thromboplastin Time 19.2 sec (22.0-30.0)
[2019-11-08] MEDS ORDERED: NALOXONE 0.4 MG/ML 1 ML VIAL IV PRN (00:19)
[2019-11-08] MEDS: ACETAMINOPHEN TAB 325 MG TAB PO PRN ×3 (01:03→16:28)
[2019-11-08] MEDS: SODIUM CHLORIDE 0.9% 1,000 ML IV SCH ×3 (05:42→21:24)
[2019-11-08 06:56] LABS: Glucose,Whole Blood 241 mg/dL (75-99)
[2019-11-08] MEDS: CARVEDILOL 12.5 MG TAB PO SCH (07:29)
[2019-11-08] MEDS: INSULIN ASPART (NovoLOG) 100 UNIT/ML VIAL SQ SCH ×3 (07:29→17:05)
[2019-11-08] MEDS: INSULIN DETEMIR (LEVEMIR) 100 UNIT/ML SYR SQ SCH (07:29)
[2019-11-08] MEDS: amLODIPine 10 MG TAB PO SCH (07:29)
[2019-11-08] MEDS ORDERED: NON FORMULARY DRUG (Glucerna Shake 1 CAN) PO SCH (08:00)
[2019-11-08 11:28] LABS: Glucose,Whole Blood 125 mg/dL (75-99)
--- NOTE | 2019-11-08 13:05 | HP ---
HISTORY AND PHYSICAL CHIEF COMPLAINT: Weakness, general debility, dehydration and renal failure. HISTORY OF PRESENT ILLNESS: This lady is brought in by EMS for weakness. Apparently she fell out of the chair and was found on the floor. She recently got out of [facility] where she was in for rehab following an episode of rhabdomyolysis and renal failure. She clearly can not function at home. There is no history of fever, cough, vomiting, diarrhea, hematemesis, melena, focal neurologic deficits, chest pain, etc. In the emergency room, hemoglobin 9.2, white count of 8.3. Potassium is 5.2. BUN was 107 with a creatinine 3.15, but she was very dehydrated. Blood sugar was 274. COVID-19 was negative. Past medical history, family history, personal and social histories are essentially unchanged from her recent admission. She is lethargic and even though she is oriented, she is difficult to get a history from. MEDICATIONS: Include Carvedilol 12.5 mg once a day, levothyroxine 0.1 mg once a day, losartan 50 mg a day, aspirin, furosemide 40 mg once a day, NovoLog 5 units a.c. meals, amlodipine 10 mg once a day, Bactrim DS. She does not smoke or drink. PHYSICAL EXAMINATION: Temperature is 94.7, pulse is 80, respirations of 18, blood pressure 150/58, pulse ox 99. In general, she appeared to be very dehydrated, pale and lethargic. Head, ears, eyes, nose, mouth, and throat were normal other than the dehydration. Neck veins are not distended. Chest is clear to auscultation. The cardiac exam demonstrates demonstrated sinus rhythm. The abdomen is soft and nontender. Extremities demonstrate stasis dermatitis and cellulitis, particularly in the right lower leg. Neurologically she was lethargic. She is admitted to the hospital diagnoses: 1. Generalized weakness. 2. General debility. 3. Uncontrolled diabetes. 4. Dehydration. 5. Prerenal azotemia. PLAN: 1. Bed rest. 2. IV fluids. 3. Rehydrate. 4. Monitor blood sugars and renal function. 5. Discharge planning. MMODL / IJN: [id number] /
--- NOTE | 2019-11-08 15:04 | CDI ---
Documentation Clarification Form Date: 11/08/2019 1514 CDS: Aimee Duarte RN, CCDS Admit Date: 11/08/2019 0019 Patient Name: Jane Malone ATTENTION: The Clinical Documentation Specialists (CDI) and [facility] Coding Staff appreciate your assistance in clarifying documentation. Please respond to the clarification below the line at the bottom and electronically sign. The CDI & [facility] Coding staff will review the response and follow-up if needed. Please note: Queries are made part of the Legal Health Record. If you have any questions, please contact the author of this message via ITS. Dr. Fleming Renal failure is documented in the medical record and requires further specificity. History/Risk Factors: Rhabdomyolysis, DM2 11/03/2019 Patients baseline BUN/CR/GFR: 52/1.51/33 Clinical Indicators: 11/06 EC: "HUBER, hyperkalemia" 11/06 H&P: "Weakness, general debility, dehydration, renal failure, recent rhabdomyolysis." 11/07/2019 Current BUN/Cr/GFR: 107/3.15/13 Treatment: IVF: 0.9%NS @ 130 cc/hr In order to capture the severity of condition, please clarify if the condition signifies: Acute renal failure, Please specify etiology (if known): Cortical Necrosis Medullary Necrosis Tubular Necrosis Acute kidney injury Acute on chronic renal failure CKD Stage 1 GFR >90 CKD Stage 2 GFR 60-89 CKD Stage 3 GFR 30-59 CKD Stage 4 GFR 15-29 CKD Stage 5 GFR <15 Chronic renal failure/Chronic Kidney disease (CKD) please stage (if known): CKD Stage 1 GFR >90 CKD Stage 2 GFR 60-89 CKD Stage 3 GFR 30-59 CKD Stage 4 GFR 15-29 CKD Stage 5 GFR <15 Other, please specify Unable to determine (Last Revision: October 2017) Please continue to document in your progress notes and discharge summary in order to capture severity of illness and risk of mortality. Include clinical findings that support your diagnosis. MTDD
--- NOTE | 2019-11-08 15:31 | CDI ---
Documentation Clarification Form Date: 11/08/2019 1530 CDS: Aimee Duarte RN, CCDS Admit Date: 11/08/2019 0019 Patient Name: Jane Malone ATTENTION: The Clinical Documentation Specialists (CDI) and [facility] Coding Staff appreciate your assistance in clarifying documentation. Please respond to the clarification below the line at the bottom and electronically sign. The CDI & [facility] Coding staff will review the response and follow-up if needed. Please note: Queries are made part of the Legal Health Record. If you have any questions, please contact the author of this message via ITS. Dr. Fleming Diabetes is documented as uncontrolled and requires further specificity. History/Risk Factors: DM, Htn Clinical Indicators: 11/07 H&P: "Uncontrolled diabetes." Glucose: 104/274/241/125 Treatment: 0.9% NS @ 130 cc/hr NovoLog SQ AC-TID Levemir 20 units SQ Daily In order to capture the severity of Illness and necessary documentation specificity, please clarify: DM Type 1 with hyperglycemia DM Type 2 with hyperglycemia Other, please specify Unable to Determine Please document any body system complications or specific manifestations related to the diabetes: Diabetic Nephropathy Diabetic Autonomic Neuropathy Diabetic Amyotrophy Diabetic Peripheral Vascular Disease Proliferative diabetic retinopathy with macular edema Diabetic foot ulcers, specify location Ketoacidosis Hypoglycemia with or without coma Hyperglycemia Hyperosmolarity Coma/nonketotic hyperglycemic-hyperosmolar coma Other condition (Last Revision: April 2017) MTDD
[2019-11-08 16:42] LABS: Glucose,Whole Blood 132 mg/dL (75-99)
[2019-11-08 20:55] LABS: Glucose,Whole Blood 77 mg/dL (75-99)
[2019-11-09] MEDS: SODIUM CHLORIDE 0.9% 1,000 ML IV SCH ×3 (04:58→20:49)
[2019-11-09 07:03] LABS: Glucose,Whole Blood 89 mg/dL (75-99)
[2019-11-09 07:11] LABS: Basophils % (A) 1 %; Eosinophils # (A) 0.4 k/uL (0-0.7); Eosinophils % (A) 8 %; HCT 24.9 % (34.0-46.0); Hypochromasia Marked; Lymphocytes # (A) 1.1 k/uL (1.0-4.8); Lymphocytes % (A) 19 %; MCH 26.6 pg (25.0-35.0); MCHC 30.4 g/dL (31.0-37.0); MCV 87.4 fL (80.0-100.0); Mean Platelet Volume 8.5; Monocytes # (A) 0.6 k/uL (0-1.0); Monocytes % (A) 11 %; Neutrophils # (A) 3.2 k/uL (1.3-7.7); Neutrophils % (A) 58 %; Platelet Count 258 k/uL (150-450); RBC 2.85 m/uL (3.80-5.40); RDW 15.9 % (11.5-15.5); WBC 5.5 k/uL (3.8-10.6)
[2019-11-09 07:34] LABS: Calcium 8.1 mg/dL (8.4-10.2); HGB 7.6 gm/dL (11.4-16.0); Potassium 4.4 mmol/L (3.5-5.1)
[2019-11-09] MEDS: amLODIPine 10 MG TAB PO SCH (07:58)
[2019-11-09] MEDS: CARVEDILOL 12.5 MG TAB PO SCH (07:58)
[2019-11-09] MEDS: INSULIN ASPART (NovoLOG) 100 UNIT/ML VIAL SQ SCH ×3 (08:00→17:22)
[2019-11-09] MEDS: INSULIN DETEMIR (LEVEMIR) 100 UNIT/ML SYR SQ SCH (10:25)
--- NOTE | 2019-11-09 11:32 | P.CONS ---
History of Present Illness - Reason for Consult Consult date: 11/09/19 Wound care - History of Present Illness This is a 79-year-old patient with nonhealing ulcerations to the left gluteus and right calcaneus. Patient has been receiving treatment at [facility] with Dr. Beckwith. During the time that she was at [facility] they were applying Santyl to the ulcerations. However patient was recently sent home and patient stated that she was not doing any treatments herself. Patient lives alone and fell upon arrival to her home. Patient's past medical history significant for congestive heart failure, COPD, diabetes mellitus, hyperlipidemia, hypertension, osteoarthritis, hyperthyroidism. Patient denies smoking. Review of Systems Review Of Systems: Constitutional: No fever, no chills, no night sweats. No weight change. Positive weakness no fatigue or lethargy. No daytime sleepiness. Pain to the buttocks Integumentary:reports wounds, no lesions. No rash or pruritus. No unusual bruising. No change in hair or nails. Past Medical History Past Medical History: Heart Failure, COPD, Diabetes Mellitus, Hyperlipidemia, Hypertension, Osteoarthritis (OA), Pneumonia, Skin Disorder, Thyroid Disorder Additional Past Medical History / Comment(s): PUL EDEMA, HIATL HERNIA, EDEMA TO LEGS AND BREAKDOWN/BLISTERS TO MARTÍN LEGS, IBS, EDEMA TO BILAT LE'S History of Any Multi-Drug Resistant Organisms: None Reported Past Surgical History: Cholecystectomy, Tonsillectomy Additional Past Surgical History / Comment(s): neck SX REMOVED BENIGN MASS OUT, RT BREAST BX-BENIGN, LASER EYE SX THINKS ON HER RT EYE. Past Anesthesia/Blood Transfusion Reactions: No Reported Reaction Past Psychological History: No Psychological Hx Reported Smoking Status: Never smoker Past Alcohol Use History: None Reported Past Drug Use History: None Reported - Past Family History Father Family Medical History: Hypertension, Myocardial Infarction (NH) Additional Family Medical History / Comment(s): X3 NH, Mother Family Medical History: Cancer Additional Family Medical History / Comment(s): DIES FROM COLON CA Medications and Allergies Home Medications Medication Instructions Recorded Confirmed Type Carvedilol [Coreg*] 12.5 mg PO DAILY 10/02/19 11/08/19 History Levothyroxine Sodium 100 mcg PO DAILY 10/02/19 11/08/19 History Losartan [Cozaar] 50 mg PO DAILY 10/02/19 11/08/19 History Acetaminophen [Tylenol] 650 mg PO Q4H PRN 10/18/19 11/08/19 History Aspirin EC [Ecotrin] 325 mg PO DAILY 10/18/19 11/08/19 History Bisacodyl [Dulcolax] 10 mg RECTAL DAILY PRN 10/18/19 11/08/19 History Collagenase [Santyl] 1 applic TOPICAL DAILY 10/18/19 11/08/19 History Furosemide [Lasix] 40 mg PO DAILY 10/18/19 11/08/19 History INSULIN ASPART (NovoLOG) [NovoLOG 5 unit SQ AC-TID 10/18/19 11/08/19 History (formulary)] Magnesium Hydroxide [Milk of 7,200 mg PO DAILY PRN 10/18/19 11/08/19 History Magnesia Concentrate] Na Phos,M-B/Na Phos,Di-Ba [Fleet 133 ml RECTAL DAILY PRN 10/18/19 11/08/19 History Adult] Nystatin 100,000Unit/gm Cream 1 applic TOPICAL BID 10/18/19 11/08/19 History [Mycostatin Cream] amLODIPine [Norvasc] 10 mg PO DAILY 10/18/19 11/08/19 History Insulin Detemir (Levemir) [Levemir] 15 unit SQ DAILY 11/08/19 11/08/19 History Allergies Allergy/AdvReac Type Severity Reaction Status Date / Time Penicillins Allergy Rash/Hives Verified 11/08/19 09:41 Physical Exam Vitals: Vital Signs Temp Pulse Resp BP Pulse Ox 11/09/19 08:00 57 L 14 11/09/19 07:00 98.2 F 57 L 14 113/55 98 11/09/19 01:02 98.0 F 61 17 100/45 97 11/08/19 22:36 65 113/46 98 11/08/19 20:04 98.1 F 60 15 92/35 98 11/08/19 15:00 98.4 F 64 18 94/51 97 Intake and Output 11/08/19 11/09/19 11/09/19 22:59 06:59 14:59 Intake Total 50 Output Total 500 300 Balance -500 -250 Intake: Oral 50 Output: Urine 500 300 Physical exam: General Appearance: Alert, cooperative, no distress, appears stated age. Skin: Right calcaneus ulceration has an eschar cap, Significant amount of slough noted no granulation seen within the wound bed no tunneling or undermining noted, measuring approximately 6 x 4 x 0.3 cm periwound has callus dry scaly skin, left gluteus ulceration full-thickness stage II pressure ulceration with minimal granulation seen in the wound bed significant necrotic tissue consisting of slough and fibrin. Periwound is macerated. No undermining or tunneling noted measuring approximately 4 x 4 x 0.2 cm shows all other Skin color, texture, tugor normal, no rashes or lesions. Neurologic: Alert oriented x3 Results CBC & Chem 7: 11/09/19 06:49 11/09/19 06:49 Labs: Abnormal Lab Results - Last 24 Hours (Table) 11/08/19 11/08/19 11/09/19 Range/Units 11:27 16:41 06:49 RBC 2.85 L (3.80-5.40) m/uL Hgb 7.6 L D (11.4-16.0) gm/dL Hct 24.9 L (34.0-46.0) % MCHC 30.4 L (31.0-37.0) g/dL RDW 15.9 H (11.5-15.5) % Chloride (98-107) mmol/L BUN (7-17) mg/dL Creatinine (0.52-1.04) mg/dL POC Glucose (mg/dL) 125 H 132 H (75-99) mg/dL Calcium (8.4-10.2) mg/dL 11/09/19 Range/Units 06:49 RBC (3.80-5.40) m/uL Hgb (11.4-16.0) gm/dL Hct (34.0-46.0) % MCHC (31.0-37.0) g/dL RDW (11.5-15.5) % Chloride 113 H (98-107) mmol/L BUN 82 H (7-17) mg/dL Creatinine 2.04 H (0.52-1.04) mg/dL POC Glucose (mg/dL) (75-99) mg/dL Calcium 8.1 L (8.4-10.2) mg/dL Microbiology - Last 24 Hours (Table) 11/07/19 22:57 Blood Culture - Preliminary Blood No Growth after 24 hours Assessment and Plan (1) Diabetes mellitus with skin ulcer Current Visit: Yes Status: Acute Code(s): E11.622 - TYPE 2 DIABETES MELLITUS WITH OTHER SKIN ULCER; L98.499 - NON-PRESSURE CHRONIC ULCER OF SKIN OF SITES W UNSP SEVERITY SNOMED Code(s): 59712448 (2) Pressure injury of right heel, unstageable Current Visit: Yes Status: Acute Code(s): L89.610 - PRESSURE ULCER OF RIGHT HEEL, UNSTAGEABLE SNOMED Code(s): 627195789 (3) Pressure ulcer of left buttock, stage 2 Current Visit: No Status: Acute Code(s): L89.322 - PRESSURE ULCER OF LEFT BUTTOCK, STAGE 2 SNOMED Code(s): 729374745 Plan: Right calcaneus x-ray to rule out osteomyelitis. Apply Santyl to right calca neus and left gluteus ulceration, saline moistened gauze, dry gauze and ABD as needed. May apply zinc barrier cream to the lower extremities to prevent further skin breakdown. Utilize a waffle cushion for sitting. Assess surface algorithms to assist and offloading. The patient is returning to [facility] follow-up with Dr. Beckwith otherwise patient will need outpatient wound care. Patient verbalized understanding Thank you kindly for the consultation. Any questions please contact the wound care center DNP note has been reviewed and discussed with Dr. Barone and the impression and plan of care has been directed as dictated.
[2019-11-09 11:43] LABS: Glucose,Whole Blood 148 mg/dL (75-99)
[2019-11-09] MEDS: ACETAMINOPHEN TAB 325 MG TAB PO PRN ×2 (12:09→20:48)
[2019-11-09] MEDS: COLLAGENASE 250 UNIT/GM OINTMENT 30 GM TUBE TOPICAL SCH (12:10)
--- NOTE | 2019-11-09 12:40 | MISC ---
MISCELLANOUS REPORT Unable to determine. Type 2 diabetes with hyperglycemia, diabetic nephropathy. MMODL / IJN: [id number] /
[2019-11-09 13:05] VITALS: BMI 42.5
--- NOTE | 2019-11-09 13:13 | XR ---
EXAMINATION TYPE: XR calcaneus 2V RT DATE OF EXAM: 11/09/2019 COMPARISON: None HISTORY: Osteomyelitis nonhealing wound right calcaneus TECHNIQUE: Two-view calcaneus FINDINGS: Calcaneal cortex appears intact. Soft tissue wound is evident posterior to the calcaneus. L arge plantar calcaneal heel spur is noted. Vascular calcification is noted. IMPRESSION: 1. No suspicious radiographic changes to suggest acute osteomyelitis.
--- NOTE | 2019-11-09 16:01 | PN ---
PROGRESS NOTE DATE OF SERVICE: 11/09/2019 CHIEF COMPLAINT: General debility, weakness, dehydration and renal failure. HISTORY OF PRESENT ILLNESS: This lady is improving. She is more awake and alert. She is able to sit up in the chair. Hydration is greatly improved. PHYSICAL EXAMINATION: Chest is clear. Cardiac exam is normal. Abdomen is soft, nontender. Both feet are wrapped and she still has neurotic excoriations on the lower legs. IMPRESSION: 1. General debility and weakness. 2. Renal failure. 3. Dehydration. 4. Stasis dermatitis and neurotic excoriations. PLAN: Continue with rehydration and increase activity. She is adamant about not wanting to go back to the correction but she clearly cannot function at home. MMODL / IJN: [id number] /
[2019-11-09 16:50] LABS: Glucose,Whole Blood 123 mg/dL (75-99)
[2019-11-09 20:51] LABS: Glucose,Whole Blood 154 mg/dL (75-99)
[2019-11-10] MEDS: SODIUM CHLORIDE 0.9% 1,000 ML IV SCH ×3 (04:17→22:49)
[2019-11-10 07:07] LABS: Glucose,Whole Blood 151 mg/dL (75-99)
[2019-11-10] MEDS: COLLAGENASE 250 UNIT/GM OINTMENT 30 GM TUBE TOPICAL SCH ×3 (07:16→08:04)
[2019-11-10] MEDS: INSULIN ASPART (NovoLOG) 100 UNIT/ML VIAL SQ SCH ×3 (08:03→17:21)
[2019-11-10] MEDS: CARVEDILOL 12.5 MG TAB PO SCH (08:03)
[2019-11-10] MEDS: amLODIPine 10 MG TAB PO SCH (08:03)
[2019-11-10] MEDS: INSULIN DETEMIR (LEVEMIR) 100 UNIT/ML SYR SQ SCH (08:03)
[2019-11-10 12:05] LABS: Glucose,Whole Blood 120 mg/dL (75-99)
--- NOTE | 2019-11-10 12:56 | CDI ---
Documentation Clarification Form Date: 11/08/2019 02:48:00 PM From: Aimee Duarte RN, CCDS Admit Date: 11/08/2019 12:19:00 AM Patient Name: Jane Malone Visit Number: [id number] ATTENTION: The Clinical Documentation Specialists (CDI) and [facility] Coding Staff appreciate your assistance in clarifying documentation. Please respond to the clarification below the line at the bottom and electronically sign. The CDI & [facility] Coding staff will review the response and follow-up if needed. Please note: Queries are made part of the Legal Health Record. If you have any questions, please contact the author of this message via ITS. Dr. Faisal Fleming Renal failure is documented in the medical record and requires further specificity. History/Risk Factors: Rhabdomyolysis, DM2 11/03/2019 Patients baseline BUN/CR/GFR: 52/1.51/33 Clinical Indicators: 11/06 EC: "HUBER, hyperkalemia" 11/06 H&P: "Weakness, general debility, dehydration, renal failure, recent rhabdomyolsis." 11/07/2019 Current BUN/Cr/GFR: 107/3.15/13 Treatment: IVF: 0.9%NS @ 130 cc/hr In order to capture the severity of condition, please clarify if the condition signifies: Acute renal failure, Please specify etiology (if known): Cortical Necrosis Medullary Necrosis Tubular Necrosis Acute kidney injury Acute on chronic renal failure CKD Stage 1 GFR >90 CKD Stage 2 GFR 60-89 CKD Stage 3 GFR 30-59 CKD Stage 4 GFR 15-29 CKD Stage 5 GFR <15 Chronic renal failure/Chronic Kidney disease (CKD) please stage (if known): CKD Stage 1 GFR >90 CKD Stage 2 GFR 60-89 CKD Stage 3 GFR 30-59 CKD Stage 4 GFR 15-29 CKD Stage 5 GFR <15 Other, please specify Unable to determine (Last Revision: October 2017) MTDD
[2019-11-10 16:58] LABS: Glucose,Whole Blood 215 mg/dL (75-99)
--- NOTE | 2019-11-10 17:33 | PN ---
PROGRESS NOTE CHIEF COMPLAINT: Failure to thrive with fall and inability to recover. HISTORY OF PRESENT ILLNESS: This lady is fairly stable and can probably be discharged any time. She is adamant about not going back to the skilled nursing. She wants to try to go home. This is not a safe place for her. She lives alone. 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 PHYSICAL EXAMINATION: Color is improved. Chest is clear. The cardiac exam is normal and the abdomen is soft, nontender. IMPRESSION: 1. Failure to thrive. 2. Renal failure. 3. Hypertension. PLAN: Await discharge plan. MMODL / IJN: [id number] /
[2019-11-10 21:17] LABS: Glucose,Whole Blood 86 mg/dL (75-99)
[2019-11-11] MEDS: SODIUM CHLORIDE 0.9% 1,000 ML IV SCH ×2 (05:28→07:15)
[2019-11-11] MEDS: ACETAMINOPHEN TAB 325 MG TAB PO PRN (05:49)
[2019-11-11 07:05] LABS: Glucose,Whole Blood 117 mg/dL (75-99)
[2019-11-11] MEDS: INSULIN DETEMIR (LEVEMIR) 100 UNIT/ML SYR SQ SCH (07:20)
[2019-11-11] MEDS: amLODIPine 10 MG TAB PO SCH (07:20)
[2019-11-11] MEDS: INSULIN ASPART (NovoLOG) 100 UNIT/ML VIAL SQ SCH ×2 (07:20→11:59)
[2019-11-11] MEDS: CARVEDILOL 12.5 MG TAB PO SCH (07:20)
[2019-11-11] MEDS: COLLAGENASE 250 UNIT/GM OINTMENT 30 GM TUBE TOPICAL SCH (07:20)
[2019-11-11 07:35] VITALS: BP 160/57; PULSE 63; RESP 20; TEMP 97.8
[2019-11-11 11:23] LABS: Glucose,Whole Blood 111 mg/dL (75-99)
--- NOTE | 2019-11-11 12:18 | DS ---
DISCHARGE SUMMARY CHIEF COMPLAINT: Dehydration, acute kidney, general debility and failure to thrive, following rhabdomyolysis. HISTORY OF PRESENT ILLNESS: This is another discharge for this 79-year-old white female who was admitted through the emergency room after she was found on the floor at home and could not get up. She recently was discharged from [facility]. LABORATORY STUDIES: While she was in a hospital, laboratory studies can be found in the laboratory section of her chart. COURSE IN HOSPITAL: After admission, she was placed on bedrest, started on intravenous fluids and rehydrated. BUN and creatinine started to come down. Electrolytes were controlled. Her blood sugar was controlled. She was anxious to go home, but it was not felt that she was able to. She is not strong enough, she lives alone and is definitely debilitated. She finally agreed to go back to [facility] and she will be sent there on 12/10. FINAL DIAGNOSES: 1. General debility. 2. Fall with inability to get up. 3. Chronic renal failure. 4. Prerenal azotemia. 5. Dehydration. 6. Electrolyte imbalance. 7. Venostasis disease and cellulitis of the lower extremities with neurotic excoriations. OPERATIONS: None. CONSULTATIONS: None. She is improved. MMODL / IJN: [id number] /
--- NOTE | 2019-11-12 12:03 | CDI ---
Documentation Clarification Form Date: 11/12/19 From: Saundra Daley CCS Phone: If you have a question about this query, please contact Jaymie Doshi, Rn Disease Management at [phone] between 8am and 5pm. Admit Date: 11/08/19 Discharge Date:11/11/19 Patient Name: Jane Malone Visit Number: [id number] ATTENTION: The Clinical Documentation Specialists (CDI) and [facility] Coding Staff appreciate your assistance in clarifying documentation. Please respond to the clarification below the line at the bottom and electronically sign. The CDI & [facility] Coding staff will review the response and follow-up if needed. Please note: Queries are made part of the Legal Health Record. If you have any questions, please contact the author of this message via ITS. Dear Dr. Fleming CHF is documented in the ED, Consult. History/Risk Factors: HTN, CKD, DM, Failure to Thrive Clinical Indicators: Hx pulmonary edema, bilateral extremity edema VS/Pulse OX: BP 116/63, RR 28, DC 77, O2 Sat 97 Chest X Ray: Small left pleural effusion.There is significant clearing of the congestive heart failure compared to old exam. Treatment: Lasix 40 mg PO Daily In your professional opinion, can you please clarify the acuity and type of CHF if known? Systolic Heart Failure: Acute Chronic Acute on Chronic Diastolic Heart Failure: Acute Chronic Acute on Chronic Systolic & Diastolic Heart Failure: Acute Chronic Acute on Chronic Heart Failure Unable to Determine Other, please specify MTDD
--- NOTE | 2019-11-15 12:22 | CDI ---
Documentation Clarification Form 3rd Request Date: 11/08/2019 02:48:00 PM From: Aimee Duarte RN, CCDS Admit Date: 11/08/2019 12:19:00 AM Patient Name: Jane Malone Visit Number: [id number] ATTENTION: The Clinical Documentation Specialists (CDI) and [facility] Coding Staff appreciate your assistance in clarifying documentation. Please respond to the clarification below the line at the bottom and electronically sign. The CDI & [facility] Coding staff will review the response and follow-up if needed. Please note: Queries are made part of the Legal Health Record. If you have any questions, please contact the author of this message via ITS. Dr. Faisal Fleming Renal failure is documented in the medical record and requires further specificity. History/Risk Factors: Rhabdomyolysis, DM2 11/03/2019 Patients baseline BUN/CR/GFR: 52/1.51/33 Clinical Indicators: 11/06 EC: "HUBER, hyperkalemia" 11/06 H&P: "Weakness, general debility, dehydration, renal failure, recent rhabdomyolsis." 11/07/2019 Current BUN/Cr/GFR: 107/3.15/13 Treatment: IVF: 0.9%NS @ 130 cc/hr In order to capture the severity of condition, please clarify if the condition signifies: Acute renal failure, Please specify etiology (if known): Cortical Necrosis Medullary Necrosis Tubular Necrosis Acute kidney injury Acute on chronic renal failure CKD Stage 1 GFR >90 CKD Stage 2 GFR 60-89 CKD Stage 3 GFR 30-59 CKD Stage 4 GFR 15-29 CKD Stage 5 GFR <15 Chronic renal failure/Chronic Kidney disease (CKD) please stage (if known): CKD Stage 1 GFR >90 CKD Stage 2 GFR 60-89 CKD Stage 3 GFR 30-59 CKD Stage 4 GFR 15-29 CKD Stage 5 GFR <15 Other, please specify Unable to determine (Last Revision: October 2017) MTDD
--- NOTE | 2019-11-15 21:53 | MISC ---
MISCELLANOUS REPORT QUERY: Diastolic heart failure, chronic. MMODL / IJN: [id number] /
--- NOTE | 2019-11-15 21:53 | MISC ---
MISCELLANOUS REPORT QUERY: Acute on chronic renal failure. Unable to determine the stage. MMODL / IJN: [id number] /
== END 2019-11-11 13:04 | DRG 683 ==
LOC: EC 22:10 → 4SSUR 11-08 00:19
PROVIDERS: ADMIT Family Medicine; ATTEND Family Medicine
DX: N17.9 Acute kidney failure, unspecified (principal); I13.0 Hypertensive heart and chronic kidney disease with heart failure and stage 1 through stage 4 chronic kidney disease, or unspecified chronic kidney disease; L03.116 Cellulitis of left lower limb; L03.115 Cellulitis of right lower limb; Z68.41 Body mass index [BMI] 40.0-44.9, adult; M62.82 Rhabdomyolysis; I50.32 Chronic diastolic (congestive) heart failure; Z11.59 Encounter for screening for other viral diseases; L89.322 Pressure ulcer of left buttock, stage 2; R62.7 Adult failure to thrive; L89.610 Pressure ulcer of right heel, unstageable; E11.22 Type 2 diabetes mellitus with diabetic chronic kidney disease; E11.622 Type 2 diabetes mellitus with other skin ulcer; E11.65 Type 2 diabetes mellitus with hyperglycemia; E11.40 Type 2 diabetes mellitus with diabetic neuropathy, unspecified; J44.9 Chronic obstructive pulmonary disease, unspecified; Z79.4 Long term (current) use of insulin; N18.9 Chronic kidney disease, unspecified; E86.0 Dehydration; E87.5 Hyperkalemia; M19.90 Unspecified osteoarthritis, unspecified site; E78.5 Hyperlipidemia, unspecified; E05.90 Thyrotoxicosis, unspecified without thyrotoxic crisis or storm; K44.9 Diaphragmatic hernia without obstruction or gangrene; I87.2 Venous insufficiency (chronic) (peripheral); W07.XXXA Fall from chair, initial encounter; K58.9 Irritable bowel syndrome, unspecified; R53.81 Other malaise; Z71.3 Dietary counseling and surveillance; Z79.899 Other long term (current) drug therapy; Z79.890 Hormone replacement therapy; Z79.82 Long term (current) use of aspirin; Z87.01 Personal history of pneumonia (recurrent); Z90.49 Acquired absence of other specified parts of digestive tract; Z98.890 Other specified postprocedural states; Z87.891 Personal history of nicotine dependence; Z88.0 Allergy status to penicillin; Z82.49 Family history of ischemic heart disease and other diseases of the circulatory system; Z80.0 Family history of malignant neoplasm of digestive organs
CPT/HCPCS: 36415; 51702; 71045; 72220; 80048; 80053; 81003; 82550; 83605; 84443; 85025; 85610; 85730; 87040; 87635; 93005; 99285

== ENCOUNTER 2019-11-20 04:24 | Inpatient (IN) | payer MEDICARE ==
--- NOTE | 2019-11-20 04:43 | ED ---
SOB HPI - General Chief Complaint: Shortness of Breath Stated Complaint: SOB Time Seen by Provider: 11/20/19 04:40 Source: EMS, RN notes reviewed, old records reviewed Mode of arrival: EMS Limitations: no limitations - History of Present Illness Initial Comments: This is a 79-year-old female DF for evaluation patient Dese for severe shortness of breath patient sent in from [facility] for low oxygen difficulty breathing and fever. Patient has multiple recent hospital admissions. Currently denying any chest pain. Patient is a poor strain secondary to clinical condition MD Complaint: shortness of breath -: hour(s) Radiation: back Severity: moderate Severity scale (1-10): 4 Quality: aching Consistency: constant Improves With: oxygen Worsens With: exertion Known History Of: COPD, congestive heart failure Context: recent URI Associated Symptoms: chest pain, cough, sputum production Treatments Prior to Arrival: none - Related Data Home Medications Medication Instructions Recorded Confirmed Carvedilol [Coreg*] 12.5 mg PO DAILY@0800 10/02/19 11/20/19 Levothyroxine Sodium 100 mcg PO DAILY@0600 10/02/19 11/20/19 Losartan [Cozaar] 50 mg PO DAILY@0800 10/02/19 11/20/19 Acetaminophen [Tylenol] 650 mg PO Q4H PRN 10/18/19 11/20/19 Aspirin EC [Ecotrin] 325 mg PO DAILY@1700 10/18/19 11/20/19 Bisacodyl [Dulcolax] 10 mg RECTAL DAILY PRN 10/18/19 11/20/19 INSULIN ASPART (NovoLOG) [NovoLOG 5 unit SQ AC-TID 10/18/19 11/20/19 (formulary)] Magnesium Hydroxide [Milk of 7,200 mg PO DAILY PRN 10/18/19 11/20/19 Magnesia Concentrate] Na Phos,M-B/Na Phos,Di-Ba [Fleet 133 ml RECTAL DAILY PRN 10/18/19 11/20/19 Adult] amLODIPine [Norvasc] 10 mg PO DAILY@0800 10/18/19 11/20/19 Insulin Detemir (Levemir) [Levemir] 15 unit SQ DAILY@0700 11/08/19 11/20/19 Collagenase [Santyl] 1 applic TOPICAL DAILY 11/20/19 11/20/19 Glucerna Shake 120 ml PO TID@0800,1200,1700 11/20/19 11/20/19 Lidocaine 5% Oint [Xylocaine 5% 1 applic TOPICAL DAILY PRN 11/20/19 11/20/19 Oint] Liquical 30 ml PO BID@0800,1700 11/20/19 11/20/19 Allergies Allergy/AdvReac Type Severity Reaction Status Date / Time Penicillins Allergy Rash/Hives Verified 11/20/19 12:09 Review of Systems ROS Statement: Those systems with pertinent positive or pertinent negative responses have been documented in the HPI. ROS Other: All systems not noted in ROS Statement are negative. Past Medical History Past Medical History: Heart Failure, COPD, Diabetes Mellitus, Hyperlipidemia, Hypertension, Osteoarthritis (OA), Pneumonia, Skin Disorder, Thyroid Disorder Additional Past Medical History / Comment(s): PUL EDEMA, HIATL HERNIA, EDEMA TO LEGS AND BREAKDOWN/BLISTERS TO MARTÍN LEGS, IBS, EDEMA TO BILAT LE'S History of Any Multi-Drug Resistant Organisms: None Reported Past Surgical History: Cholecystectomy, Tonsillectomy Additional Past Surgical History / Comment(s): neck SX REMOVED BENIGN MASS OUT, RT BREAST BX-BENIGN, LASER EYE SX THINKS ON HER RT EYE. Past Anesthesia/Blood Transfusion Reactions: No Reported Reaction Past Psychological History: No Psychological Hx Reported Smoking Status: Never smoker Past Alcohol Use History: None Reported Past Drug Use History: None Reported - Past Family History Father Family Medical History: Hypertension, Myocardial Infarction ([place]) Additional Family Medical History / Comment(s): X3 [place], Mother Family Medical History: Cancer Additional Family Medical History / Comment(s): DIES FROM COLON CA General Exam Limitations: no limitations General appearance: alert, anxious, in distress, obese Head exam: Present: atraumatic, normocephalic, normal inspection Eye exam: Present: normal appearance, PERRL, EOMI. Absent: scleral icterus, conjunctival injection, periorbital swelling ENT exam: Present: normal exam, mucous membranes moist Neck exam: Present: normal inspection. Absent: tenderness, meningismus, lymphadenopathy Respiratory exam: Present: respiratory distress, wheezes, rhonchi, accessory muscle use, decreased breath sounds, prolonged expiratory. Absent: rales, stridor Cardiovascular Exam: Present: regular rate, normal rhythm, normal heart sounds. Absent: systolic murmur, diastolic murmur, rubs, gallop, clicks GI/Abdominal exam: Present: soft, normal bowel sounds. Absent: distended, tenderness, guarding, rebound, rigid Extremities exam: Present: normal inspection, full ROM, normal capillary refill. Absent: tenderness, pedal edema, joint swelling, calf tenderness Back exam: Present: normal inspection Neurological exam: Present: alert, oriented X3, CN II-XII intact Psychiatric exam: Present: normal affect, normal mood Skin exam: Present: warm, dry, intact, normal color. Absent: rash Course Vital Signs 11/20/19 11/20/19 11/20/19 04:28 05:41 05:57 Temperature 98.1 F Pulse Rate 79 65 68 Pulse Rate [ Pulse Oximetery ] Respiratory 28 H 24 Rate Blood Pressure 187/65 168/65 Blood Pressure [Left Arm] O2 Sat by Pulse 87 L 93 L Oximetry 11/20/19 11/20/19 11/20/19 06:09 06:51 07:43 Temperature 97.6 F 98.1 F Pulse Rate 63 68 Pulse Rate [ 68 Pulse Oximetery ] Respiratory 16 22 18 Rate Blood Pressure 137/64 154/86 Blood Pressure 147/69 [Left Arm] O2 Sat by Pulse 99 95 96 Oximetry 11/20/19 11/20/19 08:36 08:47 Temperature Pulse Rate 70 68 Pulse Rate [ Pulse Oximetery ] Respiratory 18 18 Rate Blood Pressure 144/76 Blood Pressure [Left Arm] O2 Sat by Pulse 97 Oximetry - Reevaluation(s) Reevaluation #1: Medical records reviewed Patient no significant risk for distress improving with supplemental oxygen here in the ER Patient informed of findings and questions answered Medical Decision Making - Medical Decision Making 79 female presented to ER for multifactorial shortness of breath and low pulse ox COPD CHF and pneumonia. Patient will be admitted for cardiopulmonary r esuscitation monitoring, IV antibiotics breathing treatments as needed - Lab Data Result diagrams: 11/24/19 10:59 11/24/19 10:59 Lab Results 11/20/19 11/20/19 11/20/19 Range/Units 04:30 04:53 04:53 WBC 7.5 (3.8-10.6) k/uL RBC 3.40 L (3.80-5.40) m/uL Hgb 8.8 L (11.4-16.0) gm/dL Hct 29.9 L (34.0-46.0) % MCV 87.9 (80.0-100.0) fL MCH 26.0 (25.0-35.0) pg MCHC 29.6 L (31.0-37.0) g/dL RDW 15.8 H (11.5-15.5) % Plt Count 384 (150-450) k/uL Neutrophils % 71 % Lymphocytes % 14 % Monocytes % 6 % Eosinophils % 6 % Basophils % 1 % Neutrophils # 5.4 (1.3-7.7) k/uL Lymphocytes # 1.1 (1.0-4.8) k/uL Monocytes # 0.4 (0-1.0) k/uL Eosinophils # 0.5 (0-0.7) k/uL Basophils # 0.1 (0-0.2) k/uL Hypochromasia Marked PT 9.6 (9.0-12.0) sec INR 0.9 (<1.2) APTT 22.1 (22.0-30.0) sec Sodium (137-145) mmol/L Potassium (3.5-5.1) mmol/L Chloride (98-107) mmol/L Carbon Dioxide (22-30) mmol/L Anion Gap mmol/L BUN (7-17) mg/dL Creatinine (0.52-1.04) mg/dL Est GFR (CKD-EPI)AfAm (>60 ml/min/1.73 sqM) Est GFR (CKD-EPI)NonAf (>60 ml/min/1.73 sqM) Glucose (74-99) mg/dL Lactic Ac Sepsis Rflx Plasma Lactic Acid Yvan (0.7-2.0) mmol/L Calcium (8.4-10.2) mg/dL Total Bilirubin (0.2-1.3) mg/dL AST (14-36) U/L ALT (4-34) U/L Alkaline Phosphatase (38-126) U/L Troponin I (0.000-0.034) ng/mL Total Protein (6.3-8.2) g/dL Albumin (3.5-5.0) g/dL Coronavirus (PCR) Not Detected (Not Detectd) 11/20/19 11/20/19 11/20/19 Range/Units 04:53 04:53 04:53 WBC (3.8-10.6) k/uL RBC (3.80-5.40) m/uL Hgb (11.4-16.0) gm/dL Hct (34.0-46.0) % MCV (80.0-100.0) fL MCH (25.0-35.0) pg MCHC (31.0-37.0) g/dL RDW (11.5-15.5) % Plt Count (150-450) k/uL Neutrophils % % Lymphocytes % % Monocytes % % Eosinophils % % Basophils % % Neutrophils # (1.3-7.7) k/uL Lymphocytes # (1.0-4.8) k/uL Monocytes # (0-1.0) k/uL Eosinophils # (0-0.7) k/uL Basophils # (0-0.2) k/uL Hypochromasia PT (9.0-12.0) sec INR (<1.2) APTT (22.0-30.0) sec Sodium 138 (137-145) mmol/L Potassium 5.3 H (3.5-5.1) mmol/L Chloride 108 H (98-107) mmol/L Carbon Dioxide 27 (22-30) mmol/L Anion Gap 3 mmol/L BUN 24 H (7-17) mg/dL Creatinine 0.95 (0.52-1.04) mg/dL Est GFR (CKD-EPI)AfAm 66 (>60 ml/min/1.73 sqM) Est GFR (CKD-EPI)NonAf 58 (>60 ml/min/1.73 sqM) Glucose 103 H (74-99) mg/dL Lactic Ac Sepsis Rflx Plasma Lactic Acid Yvan 2.5 H* (0.7-2.0) mmol/L Calcium 9.1 (8.4-10.2) mg/dL Total Bilirubin 0.4 (0.2-1.3) mg/dL AST 20 (14-36) U/L ALT 7 (4-34) U/L Alkaline Phosphatase 110 (38-126) U/L Troponin I <0.012 (0.000-0.034) ng/mL Total Protein 6.1 L (6.3-8.2) g/dL Albumin 2.9 L (3.5-5.0) g/dL Coronavirus (PCR) (Not Detectd) 11/20/19 Range/Units 05:20 WBC (3.8-10.6) k/uL RBC (3.80-5.40) m/uL Hgb (11.4-16.0) gm/dL Hct (34.0-46.0) % MCV (80.0-100.0) fL MCH (25.0-35.0) pg MCHC (31.0-37.0) g/dL RDW (11.5-15.5) % Plt Count (150-450) k/uL Neutrophils % % Lymphocytes % % Monocytes % % Eosinophils % % Basophils % % Neutrophils # (1.3-7.7) k/uL Lymphocytes # (1.0-4.8) k/uL Monocytes # (0-1.0) k/uL Eosinophils # (0-0.7) k/uL Basophils # (0-0.2) k/uL Hypochromasia PT (9.0-12.0) sec INR (<1.2) APTT (22.0-30.0) sec Sodium (137-145) mmol/L Potassium (3.5-5.1) mmol/L Chloride (98-107) mmol/L Carbon Dioxide (22-30) mmol/L Anion Gap mmol/L BUN (7-17) mg/dL Creatinine (0.52-1.04) mg/dL Est GFR (CKD-EPI)AfAm (>60 ml/min/1.73 sqM) Est GFR (CKD-EPI)NonAf (>60 ml/min/1.73 sqM) Glucose (74-99) mg/dL Lactic Ac Sepsis Rflx Y Plasma Lactic Acid Yvan (0.7-2.0) mmol/L Calcium (8.4-10.2) mg/dL Total Bilirubin (0.2-1.3) mg/dL AST (14-36) U/L ALT (4-34) U/L Alkaline Phosphatase (38-126) U/L Troponin I (0.000-0.034) ng/mL Total Protein (6.3-8.2) g/dL Albumin (3.5-5.0) g/dL Coronavirus (PCR) (Not Detectd) - EKG Data -: EKG Interpreted by Me (EKG shows sinus rhythm rate of 71, SD 152, QRS 80, QTC 430) - Radiology Data Radiology results: report reviewed (Chest x-ray shows bilateral pneumonia with increased pleural effusions), image reviewed Disposition Clinical Impression: Acute pulmonary edema, Acute exacerbation of chronic obstructive pulmonary disease, Hypoxia, Nosocomial pneumonia Narrative: Low concern for CO VID Disposition: ADMITTED IP TO THIS HOSP Condition: Serious Is patient prescribed a controlled substance at d/c from ED?: No
[2019-11-20 05:10] LABS: Basophils # (A) 0.1 k/uL (0-0.2); Basophils % (A) 1 %; Eosinophils # (A) 0.5 k/uL (0-0.7); Eosinophils % (A) 6 %; HCT 29.9 % (34.0-46.0); HGB 8.8 gm/dL (11.4-16.0); Hypochromasia Marked; Lymphocytes # (A) 1.1 k/uL (1.0-4.8); Lymphocytes % (A) 14 %; MCHC 29.6 g/dL (31.0-37.0); MCV 87.9 fL (80.0-100.0); Mean Platelet Volume 7.5; Monocytes # (A) 0.4 k/uL (0-1.0); Monocytes % (A) 6 %; Neutrophils # (A) 5.4 k/uL (1.3-7.7); Neutrophils % (A) 71 %; Platelet Count 384 k/uL (150-450); RDW 15.8 % (11.5-15.5); WBC 7.5 k/uL (3.8-10.6)
[2019-11-20 05:13] LABS: Albumin 2.9 g/dL (3.5-5.0); Calcium 9.1 mg/dL (8.4-10.2); Total Bilirubin 0.4 mg/dL (0.2-1.3); Total Protein 6.1 g/dL (6.3-8.2)
[2019-11-20 05:19] LABS: Potassium 5.3 mmol/L (3.5-5.1)
[2019-11-20 05:20] LABS: INR 0.9 (<1.2); Partial Thromboplastin Time 22.1 sec (22.0-30.0); Prothrombin Time 9.6 sec (9.0-12.0)
--- NOTE | 2019-11-20 05:26 | XR ---
EXAMINATION TYPE: XR chest 1V portable DATE OF EXAM: 11/20/2019 COMPARISON: 11/07/2019 HISTORY: Weakness TECHNIQUE: Single view FINDINGS: There is increased density at the right cardiac border consistent with airspace pneumonia r ight lower lobe. There is also increased density in the left lower lobe with blunting left costophren ic angle. There is no gross heart failure. Heart size is fairly normal. Thoracic aorta is atheromatou s. There are chest leads. IMPRESSION: There is appearance of new bilateral lower lobe pneumonia compared to old exam. No heart failure seen. Small left pleural effusion unchanged.
[2019-11-20] MEDS ORDERED: IPRATROPIUM-ALBUTEROL 3 ML NEB INHALATION STA (05:29)
[2019-11-20] MEDS ORDERED: MORPHINE SULFATE 4 MG/ML SYRINGE IVP STA (05:29)
[2019-11-20] MEDS ORDERED: PNEUMONIA PROTOCOL UTILIZED 1 EACH MISC PO PRN (05:46)
[2019-11-20] MEDS ORDERED: LEVOFLOXACIN 750MG-D5W PMX 750 MG in DEXTROSE/WATER 1 150ML.BAG IVPB STA (05:46)
[2019-11-20] MEDS ORDERED: CEFEPIME 2 GM in SODIUM CHLORIDE 0.9% 100 ML IVPB STA (05:48)
[2019-11-20] MEDS: SODIUM CHLORIDE 0.9% 1,000 ML IV SCH ×2 (06:21→15:42)
[2019-11-20] MEDS: IPRATROPIUM-ALBUTEROL 3 ML NEB INHALATION SCH ×4 (07:31→20:04)
[2019-11-20] MEDS: ENOXAPARIN 40 MG/0.4 ML SYRINGE SQ SCH (09:15)
[2019-11-20 11:49] LABS: Glucose,Whole Blood 115 mg/dL (75-99)
[2019-11-20] MEDS ORDERED: NA PHOS,M-B/NA PHOS,DI-BA 133 ML ENEMA RECTAL PRN (14:04)
[2019-11-20] MEDS ORDERED: BISACODYL 10 MG SUPP RECTAL PRN (14:04)
[2019-11-20] MEDS ORDERED: MAGNESIUM HYDROXIDE 2,400 MG/10 ML CUP PO PRN (14:04)
--- NOTE | 2019-11-20 14:13 | P.CNPUL ---
History of Present Illness Reason for consult: dyspnea, cough, pneumonia Chief complaint: Shortness of breath and cough to 3 day duration History of present illness: This is a 79-year-old obese female who has multiple complex problems she has been not feeling well for the last few days increase in shortness of breath cough and sputum production due to respiratory issues and she is breathing d ifficulty she came into the hospital she was hypoxic on arrival slightly elevated blood pressure chest x-ray admission on to have a bilateral pneumonia, her previous history significant for hypertension hypertensive cardiovascular disease hypothyroidism poorly controlled diabetes mellitus, she is nonsmoker, currently she is on 4 L oxygen breathing comfortably still have ongoing shortness of breath cough congestion is last patient on broad-spectrum antibiotics, and I will patient was noted to have a lactic acid elevated BNP as high as well with the mild elevation of potassium, her covid 19 test is negative Review of Systems All systems: negative Past Medical History Past Medical History: Heart Failure, COPD, Diabetes Mellitus, Hyperlipidemia, Hypertension, Osteoarthritis (OA), Pneumonia, Skin Disorder, Thyroid Disorder Additional Past Medical History / Comment(s): PUL EDEMA, HIATL HERNIA, EDEMA TO LEGS AND BREAKDOWN/BLISTERS TO MARTÍN LEGS, IBS, EDEMA TO BILAT LE'S History of Any Multi-Drug Resistant Organisms: None Reported Past Surgical History: Cholecystectomy, Tonsillectomy Additional Past Surgical History / Comment(s): neck SX REMOVED BENIGN MASS OUT, RT BREAST BX-BENIGN, LASER EYE SX THINKS ON HER RT EYE. Past Anesthesia/Blood Transfusion Reactions: No Reported Reaction Past Psychological History: No Psychological Hx Reported Smoking Status: Never smoker Past Alcohol Use History: None Reported Past Drug Use History: None Reported - Past Family History Father Family Medical History: Hypertension, Myocardial Infarction ([place]) Additional Family Medical History / Comment(s): X3 [place], Mother Family Medical History: Cancer Additional Family Medical History / Comment(s): DIES FROM COLON [place] Medications and Allergies Home Medications Medication Instructions Recorded Confirmed Type Carvedilol [Coreg*] 12.5 mg PO DAILY@0800 10/02/19 11/20/19 History Levothyroxine Sodium 100 mcg PO DAILY@0600 10/02/19 11/20/19 History Losartan [Cozaar] 50 mg PO DAILY@0800 10/02/19 11/20/19 History Acetaminophen [Tylenol] 650 mg PO Q4H PRN 10/18/19 11/20/19 History Aspirin EC [Ecotrin] 325 mg PO DAILY@1700 10/18/19 11/20/19 History Bisacodyl [Dulcolax] 10 mg RECTAL DAILY PRN 10/18/19 11/20/19 History INSULIN ASPART (NovoLOG) [NovoLOG 5 unit SQ AC-TID 10/18/19 11/20/19 History (formulary)] Magnesium Hydroxide [Milk of 7,200 mg PO DAILY PRN 10/18/19 11/20/19 History Magnesia Concentrate] Na Phos,M-B/Na Phos,Di-Ba [Fleet 133 ml RECTAL DAILY PRN 10/18/19 11/20/19 History Adult] amLODIPine [Norvasc] 10 mg PO DAILY@0800 10/18/19 11/20/19 History Insulin Detemir (Levemir) [Levemir] 15 unit SQ DAILY@0700 11/08/19 11/20/19 History Collagenase [Santyl] 1 applic TOPICAL DAILY 11/20/19 11/20/19 History Glucerna Shake 120 ml PO TID@0800,1200,1700 11/20/19 11/20/19 History Lidocaine 5% Oint [Xylocaine 5% 1 applic TOPICAL DAILY PRN 11/20/19 11/20/19 History Oint] Liquical 30 ml PO BID@0800,1700 11/20/19 11/20/19 History Allergies Allergy/AdvReac Type Severity Reaction Status Date / Time Penicillins Allergy Rash/Hives Verified 11/20/19 12:09 Physical Exam Vitals: Vital Signs Temp Pulse Pulse Resp BP BP Pulse Ox 11/20/19 12:00 97.6 F 67 18 115/41 98 11/20/19 08:49 98.1 F 11/20/19 08:47 68 18 144/76 97 11/20/19 08:36 70 18 11/20/19 07:43 68 18 154/86 96 11/20/19 06:51 98.1 F 63 22 137/64 95 11/20/19 06:09 97.6 F 68 16 147/69 99 11/20/19 05:57 68 11/20/19 05:41 65 24 168/65 93 L 11/20/19 04:28 98.1 F 79 28 H 187/65 87 L Intake and Output 11/19/19 11/20/19 11/20/19 22:59 06:59 14:59 Intake Total 135 Balance 135 Intake: IV 10 0.9 10 Oral 125 Other: Voiding Method Bedside Commode Diaper Weight 111.13 kg 111.13 kg - Constitutional General appearance: disheveled, morbidly obese - EENT Eyes: EOMI, PERRLA Ears: bilateral: normal - Neck Neck: normal ROM Carotids: bilateral: upstroke normal, bruit absent Thyroid: bilateral: normal size - Respiratory Respiratory: bilateral: diminished, rales - Cardiovascular Rhythm: regular Heart sounds: normal: S1, S2 - Gastrointestinal General gastrointestinal: splenomegaly - Integumentary Integumentary: normal turgor - Neurologic Neurologic: CNII-XII intact - Musculoskeletal Musculoskeletal: generalized weakness, strength equal bilaterally - Psychiatric Psychiatric: A&O x's 3, appropriate affect, intact judgment & insight Results - Laboratory Findings CBC and BMP: 11/20/19 04:53 11/20/19 04:53 PT/INR, D-dimer PT 9.6 sec (9.0-12.0) 11/20/19 04:53 INR 0.9 (<1.2) 11/20/19 04:53 Abnormal lab findings: Abnormal Labs 11/20/19 11/20/19 11/20/19 04:53 04:53 04:53 RBC 3.40 L Hgb 8.8 L Hct 29.9 L MCHC 29.6 L RDW 15.8 H Potassium 5.3 H Chloride 108 H BUN 24 H Glucose 103 H POC Glucose (mg/dL) Plasma Lactic Acid Yvan 2.5 H* Total Protein 6.1 L Albumin 2.9 L 11/20/19 11:49 RBC Hgb Hct MCHC RDW Potassium Chloride BUN Glucose POC Glucose (mg/dL) 115 H Plasma Lactic Acid Yvan Total Protein Albumin - Diagnostic Findings Chest x-ray: report reviewed, image reviewed Assessment and Plan Assessment: Bilateral pneumonia Acute exacerbation of CHF likely acute on chronic diastolic heart failure Acute hypoxic respirator failure due to multifactorial processes Type 2 diabetes Morbid obesity Plan: Broad-spectrum antibiotics Deep breathing exercise incentive spirometry Supplemental oxygen Breathing treatment Continue home medications DVT prophylaxis Increase activity as tolerated Further plan of care as per clinical response of the patient Time with Patient: Greater than 30
--- NOTE | 2019-11-20 16:32 | HP ---
HISTORY AND PHYSICAL CHIEF COMPLAINT: Shortness of breath. HISTORY OF PRESENT ILLNESS: This is another admission for this 79-year-old white female who is serving her second stint at [facility] for failure to thrive. She was living alone and was having frequent falls, unable to get herself up and maintain herself. She was directed from the intermediate as she was complaining of shortness of breath and a pulse ox of 80. In the emergency room, she was identified as having bilateral lower lobe bronchial pneumonia. REVIEW OF SYSTEMS: She denies chest pain, headache, neurologic changes, nausea, vomiting, diarrhea, melena, dysuria, frequency, etc. Past medical history, family history and personal and social histories are essentially unchanged from her recent admitting and discharge summaries. She is on various medications which can be found in the [facility] from the intermediate including antihypertensives and insulin. She has been receiving care for lower extremity edema, neurotic excoriations and cellulitis. PHYSICAL EXAMINATION: Blood pressure is 125/64 with a pulse of 92, respirations of 36, and she is she is afebrile. In general, she appeared to be pale and chronically ill. Head, ears, eyes, nose, mouth, and throat were normal and neck veins not distended. Chest demonstrated poor breath sounds bilaterally with scattered rales and rhonchi. Cardiac exam demonstrated what sounded like sinus rhythm and no murmurs or extra sounds. Abdomen is slightly protuberant, soft and nontender without any visceromegaly or masses. Bowel sounds were present. Extremities demonstrated her lower extremity edema, cellulitis and excoriations. Neurologically she is intact. IMPRESSION: 1. Bilateral bronchial pneumonia. 2. Congestive heart failure. 3. Hypertension. 4. Diabetes. 5. Failure to thrive and general debility. PLAN: 1. Bed rest. 2. IV fluids. 3. Updrafts. 4. IV antibiotics. 5. Consult with Pulmonology, Infectious Disease and Cardiology. MMODL / IJN: [id number] /
[2019-11-20 16:58] LABS: Glucose,Whole Blood 196 mg/dL (75-99)
[2019-11-20] MEDS: ASPIRIN 325 MG TAB PO SCH (17:46)
[2019-11-20] MEDS: INSULIN ASPART (NovoLOG) 100 UNIT/ML VIAL SQ SCH (17:46)
[2019-11-20 20:40] LABS: Glucose,Whole Blood 175 mg/dL (75-99)
--- NOTE | 2019-11-20 21:54 | P.CONS ---
History of Present Illness - Reason for Consult Consult date: 11/20/19 pneumonia Requesting physician: Faisal Fleming - Chief Complaint shortness of breath x few days - History of Present Illness Patient is a 79-year female with a past medical history significant for COPD currently on resident of a local care home presenting to the ER with a chief complaints of increasing shortness of breath that has been progressively worse over the last few days the patient also complaining of wheezing associated with her shortness of breath he did have a cough mild to moderate intensity but no significant sputum production denies having significant URI symptoms no nausea vomiting no choking on food abdominal pain or any diarrhea some chills but denies high-grade fever with the symptom the patient presented to hospital on arrival to the ER the patient has been afebrile he did have a normal white count estrella PCR was negative patient's versus a bilateral basilar pneumonia patient has been started on cefepime 2 g every 24 hours infectious was consulted for further recommendation regarding antibiotic therapy he did have elevated lactic acid on admission subsequent normalized , liver enzymes are normal Review of Systems positive point has been mentioned in HPI rest of the systems are negative Past Medical History Past Medical History: Heart Failure, COPD, Diabetes Mellitus, Hyperlipidemia, Hypertension, Osteoarthritis (OA), Pneumonia, Skin Disorder, Thyroid Disorder Additional Past Medical History / Comment(s): PUL EDEMA, HIATL HERNIA, EDEMA TO LEGS AND BREAKDOWN/BLISTERS TO MARTÍN LEGS, IBS, EDEMA TO BILAT LE'S History of Any Multi-Drug Resistant Organisms: None Reported Past Surgical History: Cholecystectomy, Tonsillectomy Additional Past Surgical History / Comment(s): neck SX REMOVED BENIGN MASS OUT, RT BREAST BX-BENIGN, LASER EYE SX THINKS ON HER RT EYE. Past Anesthesia/Blood Transfusion Reactions: No Reported Reaction Past Psychological History: No Psychological Hx Reported Smoking Status: Never smoker Past Alcohol Use History: None Reported Past Drug Use History: None Reported - Past Family History Father Family Medical History: Hypertension, Myocardial Infarction ([place]) Additional Family Medical History / Comment(s): X3 [place], Mother Family Medical History: Cancer Additional Family Medical History / Comment(s): DIES FROM COLON [place] Medications and Allergies Home Medications Medication Instructions Recorded Confirmed Type Carvedilol [Coreg*] 12.5 mg PO DAILY@0800 10/02/19 11/20/19 History Levothyroxine Sodium 100 mcg PO DAILY@0600 03/21/20 05/09/20 History Losartan [Cozaar] 50 mg PO DAILY@0800 10/02/19 11/20/19 History Acetaminophen [Tylenol] 650 mg PO Q4H PRN 10/18/19 11/20/19 History Aspirin EC [Ecotrin] 325 mg PO DAILY@1700 10/18/19 11/20/19 History Bisacodyl [Dulcolax] 10 mg RECTAL DAILY PRN 10/18/19 11/20/19 History INSULIN ASPART (NovoLOG) [NovoLOG 5 unit SQ AC-TID 10/18/19 11/20/19 History (formulary)] Magnesium Hydroxide [Milk of 7,200 mg PO DAILY PRN 10/18/19 11/20/19 History Magnesia Concentrate] Na Phos,M-B/Na Phos,Di-Ba [Fleet 133 ml RECTAL DAILY PRN 10/18/19 11/20/19 Hi story Adult] amLODIPine [Norvasc] 10 mg PO DAILY@0800 10/18/19 11/20/19 History Insulin Detemir (Levemir) [Levemir] 15 unit SQ DAILY@0700 11/08/19 11/20/19 History Collagenase [Santyl] 1 applic TOPICAL DAILY 11/20/19 11/20/19 History Glucerna Shake 120 ml PO TID@0800,1200,1700 11/20/19 11/20/19 History Lidocaine 5% Oint [Xylocaine 5% 1 applic TOPICAL DAILY PRN 11/20/19 11/20/19 History Oint] Liquical 30 ml PO BID@0800,1700 11/20/19 11/20/19 History Allergies Allergy/AdvReac Type Severity Reaction Status Date / Time Penicillins Allergy Rash/Hives Verified 11/20/19 12:09 Physical Exam Vitals: Vital Signs Temp Pulse Pulse Resp BP BP Pulse Ox 11/20/19 15:23 97.7 F 68 16 155/62 98 11/20/19 12:00 97.6 F 67 18 115/41 98 11/20/19 08:49 98.1 F 11/20/19 08:47 68 18 144/76 97 11/20/19 08:36 70 18 11/20/19 07:43 68 18 154/86 96 11/20/19 06:51 98.1 F 63 22 137/64 95 11/20/19 06:09 97.6 F 68 16 147/69 99 11/20/19 05:57 68 11/20/19 05:41 65 24 168/65 93 L 11/20/19 04:28 98.1 F 79 28 H 187/65 87 L Intake and Output 11/20/19 11/20/19 11/20/19 06:59 14:59 22:59 Intake Total 135 Balance 135 Intake: IV 10 0.9 10 Oral 125 Other: Voiding Method Bedside Commode Diaper Weight 111.13 kg 111.13 kg GENERAL DESCRIPTION: Elderly female lying in bed, no distress. No tachypnea or accessory muscle of respiration use. HEENT: Shows Pallor , no scleral icterus. Oral mucous membrane is dry. NECK: Trachea central, no thyromegaly. LUNGS: Unlabored breathing. Decreased breath sound at base. 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 HEART: S1, S2, regular rate and rhythm. ABDOMEN: Soft, no tenderness , guarding or rigidity EXTREMITIES: No edema of feet. SKIN: No rash, no masses palpable. NEUROLOGICAL: The patient is awake, alert, oriented x3, mood and affect normal. Results CBC & Chem 7: 11/20/19 04:53 11/20/19 04:53 Labs: Abnormal Lab Results - Last 24 Hours (Table) 11/20/19 11/20/19 11/20/19 Range/Units 04:53 04:53 04:53 RBC 3.40 L (3.80-5.40) m/uL Hgb 8.8 L (11.4-16.0) gm/dL Hct 29.9 L (34.0-46.0) % MCHC 29.6 L (31.0-37.0) g/dL RDW 15.8 H (11.5-15.5) % Potassium 5.3 H (3.5-5.1) mmol/L Chloride 108 H (98-107) mmol/L BUN 24 H (7-17) mg/dL Glucose 103 H (74-99) mg/dL POC Glucose (mg/dL) (75-99) mg/dL Plasma Lactic Acid Yvan 2.5 H* (0.7-2.0) mmol/L Total Protein 6.1 L (6.3-8.2) g/dL Albumin 2.9 L (3.5-5.0) g/dL 11/20/19 Range/Units 11:49 RBC (3.80-5.40) m/uL Hgb (11.4-16.0) gm/dL Hct (34.0-46.0) % MCHC (31.0-37.0) g/dL RDW (11.5-15.5) % Potassium (3.5-5.1) mmol/L Chloride (98-107) mmol/L BUN (7-17) mg/dL Glucose (74-99) mg/dL POC Glucose (mg/dL) 115 H (75-99) mg/dL Plasma Lactic Acid Yvan (0.7-2.0) mmol/L Total Protein (6.3-8.2) g/dL Albumin (3.5-5.0) g/dL Assessment and Plan Assessment: patient presented to hospital with increasing shortness of breath-wheezing did have a cough this patient her care home resident chest x-ray bilateral basilar pneumonia with concern for possible gram-negative pathogen clinical doubt aspiration or gram-positive bacteria (1) Pneumonia Current Visit: Yes Status: Acute Code(s): J18.9 - PNEUMONIA, UNSPECIFIED ORGANISM SNOMED Code(s): 448168930 Plan: 1-obtain a sputum for Gram stain culture 2-we will check a CRP and procalcitonin level 3 cefepime dose to be used to 2 g every 12 hours We will follow on clinical condition and cultures to further adjust medication if needed Thank you for this consultation we will follow the patient along with you Time with Patient: Greater than 30
[2019-11-20] MEDS: CEFEPIME 2 GM in SODIUM CHLORIDE 0.9% 100 ML IVPB SCH (22:58)
[2019-11-21] MEDS: SODIUM CHLORIDE 0.9% 1,000 ML IV SCH ×2 (05:50→17:17)
[2019-11-21] MEDS: LEVOTHYROXINE 100 MCG TAB PO SCH (05:50)
[2019-11-21] MEDS ORDERED: CEFEPIME 2 GM in SODIUM CHLORIDE 0.9% 100 ML IVPB SCH (06:00)
[2019-11-21 06:16] LABS: Glucose,Whole Blood 158 mg/dL (75-99)
--- NOTE | 2019-11-21 06:43 | XR ---
EXAMINATION TYPE: XR chest 1V portable DATE OF EXAM: 11/21/2019 HISTORY: pneumonia. REFERENCE: Previous study dated 11/20/2019. FINDINGS: There is multichamber cardiac enlargement. There is bibasilar airspace disease. Both CP ang les are blunted and I could not exclude bilateral effusions. IMPRESSION: 1. CARDIOMEGALY. 2. BILATERAL INFILTRATES, WORSE ON THE RIGHT THAN THE LEFT.
[2019-11-21] MEDS: INSULIN ASPART (NovoLOG) 100 UNIT/ML VIAL SQ SCH ×3 (06:48→17:18)
[2019-11-21] MEDS: INSULIN DETEMIR (LEVEMIR) 100 UNIT/ML SYR SQ SCH (06:51)
[2019-11-21] MEDS: LOSARTAN 50 MG TAB PO SCH (06:54)
[2019-11-21] MEDS: CARVEDILOL 12.5 MG TAB PO SCH (06:54)
[2019-11-21] MEDS: amLODIPine 10 MG TAB PO SCH (06:54)
[2019-11-21] MEDS: IPRATROPIUM-ALBUTEROL 3 ML NEB INHALATION SCH ×4 (07:20→19:38)
[2019-11-21 07:22] LABS: Basophils % (A) 0 %; Eosinophils # (A) 0.3 k/uL (0-0.7); Eosinophils % (A) 5 %; HCT 26.5 % (34.0-46.0); HGB 8.1 gm/dL (11.4-16.0); Hypochromasia Marked; Lymphocytes # (A) 0.7 k/uL (1.0-4.8); Lymphocytes % (A) 10 %; MCH 26.7 pg (25.0-35.0); MCHC 30.4 g/dL (31.0-37.0); MCV 87.9 fL (80.0-100.0); Mean Platelet Volume 7.4; Monocytes # (A) 0.5 k/uL (0-1.0); Monocytes % (A) 7 %; Neutrophils # (A) 5.2 k/uL (1.3-7.7); Neutrophils % (A) 76 %; Platelet Count 331 k/uL (150-450); RBC 3.01 m/uL (3.80-5.40); RDW 15.6 % (11.5-15.5); WBC 6.8 k/uL (3.8-10.6)
[2019-11-21 07:33] LABS: Calcium 8.8 mg/dL (8.4-10.2); Potassium 5.6 mmol/L (3.5-5.1)
[2019-11-21] MEDS ORDERED: COLLAGENASE 250 UNIT/GM OINTMENT 30 GM TUBE TOPICAL SCH (09:00)
[2019-11-21] MEDS: CEFEPIME 2 GM in SODIUM CHLORIDE 0.9% 100 ML IVPB SCH ×2 (09:24→21:34)
[2019-11-21] MEDS: ENOXAPARIN 40 MG/0.4 ML SYRINGE SQ SCH (09:24)
--- NOTE | 2019-11-21 09:26 | P.CRDCN ---
History of Present Illness Consult date: 11/21/19 Requesting physician: Faisal Fleming Reason for Consult (text): CHF Chief complaint: shortness of breath History of present illness: Physical pleasant 79-year-old female patient who currently resides at [facility] and is undergoing wound care there for a right heel ulcer. She has a history of hypertension, diabetes, and chronic diastolic congestive heart failure with her most recent echo available to me from 2013 showing an ejection fraction of 5055% with mild MRChandler Was sent here to the emergency department for progressively worsening shortness of breath with a cough. She was recently admitted to the hospital last month with acute kidney injury and hyperkalemia at which time her NT proBNP was elevated but thought to be secondary to acute kidney injury. On this admission chest x-ray showed bilateral lower lobe pneumonia, small left pleural effusion with no evidence of heart failure. NT proBNP was 2670 BUN 23, creatinine 0.96, potassium is up to 5.6 she is currently on losartan 50 mg daily. Hemoglobin 8.1 which appears to be around her baseline. She has been somewhat hypertensive this admission. He was hypotensive during previous admission. EKG on admission showed sinus rhythm with PACs. Repeat chest x-ray this morning showed cardiomegaly, bilateral infiltrates, worse on the right than left. She's been placed on IV antibiotics and infectious disease has been cons ulted along with pulmonology. Overall, she feels her breathing is a bit better but continues to complain of significant dyspnea on exertion with orthopnea. She does have lower extremity edema which does not appear to be new for her. Past Medical History Past Medical History: Heart Failure, COPD, Diabetes Mellitus, Hyperlipidemia, Hypertension, Osteoarthritis (OA), Pneumonia, Skin Disorder, Thyroid Disorder Additional Past Medical History / Comment(s): PUL EDEMA, HIATL HERNIA, EDEMA TO LEGS AND BREAKDOWN/BLISTERS TO MARTÍN LEGS, IBS, EDEMA TO BILAT LE'S History of Any Multi-Drug Resistant Organisms: None Reported Past Surgical History: Cholecystectomy, Tonsillectomy Additional Past Surgical History / Comment(s): neck SX REMOVED BENIGN MASS OUT, RT BREAST BX-BENIGN, LASER EYE SX THINKS ON HER RT EYE. Past Anesthesia/Blood Transfusion Reactions: No Reported Reaction Past Psychological History: No Psychological Hx Reported Smoking Status: Never smoker Past Alcohol Use History: None Reported Past Drug Use History: None Reported - Past Family History Father Family Medical History: Hypertension, Myocardial Infarction ([place]) Additional Family Medical History / Comment(s): X3 [place], Mother Family Medical History: Cancer Additional Family Medical History / Comment(s): DIES FROM COLON [place] Medications and Allergies Home Medications Medication Instructions Recorded Confirmed Type Carvedilol [Coreg*] 12.5 mg PO DAILY@0800 10/02/19 11/20/19 History Levothyroxine Sodium 100 mcg PO DAILY@0600 10/02/19 11/20/19 History Losartan [Cozaar] 50 mg PO DAILY@0800 10/02/19 11/20/19 History Acetaminophen [Tylenol] 650 mg PO Q4H PRN 10/18/19 11/20/19 History Aspirin EC [Ecotrin] 325 mg PO DAILY@17010/18/19 11/20/19 History Bisacodyl [Dulcolax] 10 mg RECTAL DAILY PRN 10/18/19 11/20/19 History INSULIN ASPART (NovoLOG) [NovoLOG 5 unit SQ AC-TID 10/18/19 11/20/19 History (formulary)] Magnesium Hydroxide [Milk of 7,200 mg PO DAILY PRN 10/18/19 11/20/19 History Magnesia Concentrate] Na Phos,M-B/Na Phos,Di-Ba [Fleet 133 ml RECTAL DAILY PRN 10/18/19 11/20/19 History Adult] amLODIPine [Norvasc] 10 mg PO DAILY@0800 10/18/19 11/20/19 History Insulin Detemir (Levemir) [Levemir] 15 unit SQ DAILY@0700 11/08/19 11/20/19 History Collagenase [Santyl] 1 applic TOPICAL DAILY 11/20/19 11/20/19 History Glucerna Shake 120 ml PO TID@0800,1200,1700 11/20/19 11/20/19 History Lidocaine 5% Oint [Xylocaine 5% 1 applic TOPICAL DAILY PRN 11/20/19 11/20/19 History Oint] Liquical 30 ml PO BID@0800,1700 11/20/19 11/20/19 History Allergies Allergy/AdvReac Type Severity Reaction Status Date / Time Penicillins Allergy Rash/Hives Verified 11/20/19 12:09 Physical Exam Vitals: Vital Signs Temp Pulse Pulse Resp BP Pulse Ox 11/21/19 07:28 72 11/21/19 07:22 76 11/21/19 03:46 98.6 F 77 20 168/71 93 L 11/21/19 00:00 98.4 F 74 18 148/78 97 11/20/19 20:13 68 16 11/20/19 20:04 70 16 11/20/19 20:00 98.1 F 72 18 146/66 98 11/20/19 15:53 68 16 11/20/19 15:41 68 16 11/20/19 15:36 16 11/20/19 15:23 97.7 F 68 16 155/62 98 11/20/19 12:00 97.6 F 67 18 115/41 98 Intake and Output 11/20/19 11/21/19 11/21/19 22:59 06:59 14:59 Intake Total 200 Output Total 1 Balance -1 200 Intake: Oral 200 Output: Urine 1 Other: Voiding Method Bedside Commode Diaper # Voids 1 Weight 112.3 kg PHYSICAL EXAMINATION: HEENT: Head is atraumatic, normocephalic. Pupils equal, round. Neck is supple. There is no elevated jugular venous pressure. HEART EXAMINATION: Heart sounds regular, S1 and S2 with a systolic murmur at the base. CHEST EXAMINATION: Lungs reveal diminished air entry bilaterally with crackles to bilateral lower lobes. No chest wall tenderness is noted on palpation or with deep breathing. ABDOMEN: Soft, obese, nontender. Bowel sounds are heard. No organomegaly noted. EXTREMITIES: Diminished peripheral pulses with evidence of 1+ peripheral edema and no calf tenderness noted. Dressing noted to right foot.. NEUROLOGIC patient is awake, alert and oriented x3. . Results 11/21/19 06:54 11/21/19 06:54 CBC 11/21/19 Range/Units 06:54 WBC 6.8 (3.8-10.6) k/uL RBC 3.01 L (3.80-5.40) m/uL Hgb 8.1 L (11.4-16.0) gm/dL Hct 26.5 L (34.0-46.0) % Plt Count 331 (150-450) k/uL Comprehensive Metabolic Panel 11/21/19 Range/Units 06:54 Sodium 137 (137-145) mmol/L Potassium 5.6 H (3.5-5.1) mmol/L Chloride 110 H (98-107) mmol/L Carbon Dioxide 25 (22-30) mmol/L BUN 23 H (7-17) mg/dL Creatinine 0.96 (0.52-1.04) mg/dL Glucose 136 H (74-99) mg/dL Calcium 8.8 (8.4-10.2) mg/dL Current Medications Generic Name Dose Route Start Last Admin Trade Name Freq PRN Reason Stop Dose Admin Acetaminophen 650 mg 11/20/19 14:04 Tylenol Tab PO Q4H PRN Fever and/ or Pain Albuterol/Ipratropium 3 ml 11/20/19 08:00 11/21/19 07:20 Duoneb 0.5 Mg-3 Mg/3 Ml Soln INHALATION 3 ml RT-QID [facility] Administration Amlodipine Besylate 10 mg 11/21/19 08:00 11/21/19 06:54 Norvasc PO 10 mg DAILY@0800 [facility] Administration Aspirin 325 mg 11/20/19 17:00 11/20/19 17:46 Aspirin PO 325 mg DAILY@1700 [facility] Administration Bisacodyl 10 mg 11/20/19 14:04 Dulcolax RECTAL DAILY PRN Constipation Carvedilol 12.5 mg 11/21/19 08:00 11/21/19 06:54 Coreg PO 12.5 mg DAILY@0800 [facility] Administration Collagenase 1 applic 11/21/19 09:00 Santyl TOPICAL DAILY [facility] Enoxaparin Sodium 40 mg 11/20/19 09:00 11/20/19 09:15 Lovenox SQ 40 mg DAILY [facility] Administration Sodium Chloride 1,000 mls @ 100 mls/hr 11/20/19 06:00 11/21/19 05:50 Saline 0.9% IV 100 mls/hr .Q10H [facility] Administration Cefepime HCl 2 gm/ Sodium 100 mls @ 200 mls/hr 11/20/19 22:00 11/20/19 22:58 Chloride IVPB 200 mls/hr Q12H [facility] Administration Insulin Aspart 5 unit 11/20/19 17:30 11/21/19 06:48 Novolog SQ Not Given AC-TID [facility] Insulin Detemir 15 unit 11/21/19 07:00 11/21/19 06:51 Levemir SQ 15 unit DAILY@0700 [facility] Administration Levofloxacin 750 mg 11/22/19 08:00 Levaquin PO Q48H [facility] Levothyroxine Sodium 100 mcg 11/21/19 06:00 11/21/19 05:50 Synthroid PO 100 mcg DAILY@0600 [facility] Administration Losartan Potassium 50 mg 11/21/19 08:00 11/21/19 06:54 Cozaar PO 50 mg DAILY@0800 [facility] Administration Magnesium Hydroxide 7,200 mg 11/20/19 14:04 Milk Of Magnesia PO DAILY PRN Constipation Miscellaneous Information 1 each 11/20/19 05:46 Pneumonia Protocol Utilized PO ONCE PRN Per Protocol Morphine Sulfate 4 mg 11/20/19 05:29 Morphine Sulfate (Inj) IVP Q4HR PRN Pain Sodium Biphosphate/Sodium Phosphate 133 ml 11/20/19 14:04 Fleet Adult RECTAL DAILY PRN Constipation Intake and Output 11/20/19 11/21/19 11/21/19 22:59 06:59 14:59 Intake Total 200 Output Total 1 Balance -1 200 Intake: Oral 200 Output: Urine 1 Other: Voiding Method Bedside Commode Diaper # Voids 1 Weight 112.3 kg 11/21/19 06:54 11/21/19 06:54 EKG Interpretations (text) Sinus rhythm with PACs and artifact Assessment and Plan Assessment: #1 symptoms of shortness of breath likely secondary to combination of predominantly pneumonia with some underlying heart failure #2 bilateral lower lobe pneumonia #3 congestive heart failure, likely diastolic however last echo was from 2013 #4 nonhealing ulcer to the right heel #5 diabetes #6 hypertension #7 recent admission for acute kidney injury #8 anemia Plan: From cardiology's perspective, we will obtain a 2-D echo with Doppler to assess LV function and cardiac structure. We will start the patient on IV Lasix. Continue to monitor renal function and electrolytes as well as daily weights and intake and output. We'll continue to follow the patient referred for the recommendations accordingly. W[employer] RES[employer] PROJECT MANAGER note has been reviewed, I agree with a documented findings and plan of care. Patient was seen and examined.
[2019-11-21] MEDS: FUROSEMIDE 10 MG/ML 4 ML VIAL IV SCH ×2 (09:30→21:10)
[2019-11-21 12:10] LABS: Glucose,Whole Blood 120 mg/dL (75-99)
[2019-11-21] MEDS: ASPIRIN 325 MG TAB PO SCH (17:17)
[2019-11-21 17:18] LABS: Glucose,Whole Blood 96 mg/dL (75-99)
[2019-11-21 19:59] LABS: Glucose,Whole Blood 138 mg/dL (75-99)
[2019-11-21] MEDS: ACETAMINOPHEN TAB 325 MG TAB PO PRN (21:21)
--- NOTE | 2019-11-21 23:35 | PN ---
PROGRESS NOTE DATE OF SERVICE: 11/21/2019 REASON FOR FOLLOWUP: Pneumonia and right heel wound. INTERVAL HISTORY: The patient is currently afebrile. She was complaining of pain to the right heel after change on the dressing. The patient did mention breathing has slightly improved. Still has some cough, but not bringing up any sputum. No nausea, no vomiting. No abdominal pain or diarrhea. PHYSICAL EXAMINATION: Blood pressure 144/66, pulse of 66, temperature 98.3. She is 95% on 4 L nasal cannula. General description is an elderly female lying in bed in no distress. RESPIRATORY SYSTEM: Unlabored breathing, clear to auscultation anteriorly. HEART: S1, S2. Regular rate and rhythm. ABDOMEN: Soft, no tenderness. Right heel did have stage III pressure ulcer with some necrotic tissue. No definite cellulitis. LABS: Hemoglobin 8.1, white count 6.8. BUN of 23, creatinine 0.96. DIAGNOSTIC IMPRESSION AND PLAN: 1. Patient admitted to the hospital with shortness of breath and cough with concern for pneumonia, possible Gram-negative. Patient is covered with cefepime to continue. Try to obtain a sputum and antibiotics. 2. The patient right heel wound with some necrotic slough tissue. Will switch the wound care to the Medihoney followed by moist dressing. Keep the area off the pressure. Continue supportive care. MMODL / IJN: [id number] /
[2019-11-22] MEDS: SODIUM CHLORIDE 0.9% 1,000 ML IV SCH ×2 (05:55→10:09)
[2019-11-22] MEDS ORDERED: LEVOFLOXACIN 750MG-D5W PMX 750 MG in DEXTROSE/WATER 1 150ML.BAG IVPB SCH (06:00)
[2019-11-22 06:03] LABS: Glucose,Whole Blood 124 mg/dL (75-99)
[2019-11-22] MEDS: LEVOTHYROXINE 100 MCG TAB PO SCH (06:23)
[2019-11-22] MEDS: INSULIN DETEMIR (LEVEMIR) 100 UNIT/ML SYR SQ SCH (06:25)
[2019-11-22] MEDS: INSULIN ASPART (NovoLOG) 100 UNIT/ML VIAL SQ SCH ×3 (06:30→17:25)
[2019-11-22] MEDS: IPRATROPIUM-ALBUTEROL 3 ML NEB INHALATION SCH ×4 (08:25→21:07)
[2019-11-22] MEDS: CARVEDILOL 12.5 MG TAB PO SCH ×2 (08:54→17:33)
[2019-11-22] MEDS: LOSARTAN 50 MG TAB PO SCH (08:54)
[2019-11-22] MEDS: LEVOFLOXACIN 750 MG TAB PO SCH (08:54)
[2019-11-22] MEDS: FUROSEMIDE 10 MG/ML 4 ML VIAL IV SCH ×2 (08:55→20:46)
[2019-11-22] MEDS: ENOXAPARIN 40 MG/0.4 ML SYRINGE SQ SCH (08:55)
[2019-11-22 09:10] LABS: Calcium 8.6 mg/dL (8.4-10.2); Potassium 5.3 mmol/L (3.5-5.1)
[2019-11-22] MEDS: CEFEPIME 2 GM in SODIUM CHLORIDE 0.9% 100 ML IVPB SCH ×2 (10:09→22:49)
--- NOTE | 2019-11-22 10:28 | P.PN ---
Subjective Progress Note Date: 11/22/19 Principal diagnosis: Bilateral pneumonia Acute exacerbation of CHF likely acute on chronic diastolic heart failure Acute hypoxic respirator failure due to multifactorial processes Type 2 diabetes Morbid obesity 11/22/2019, patient seen eval examined during the rounds he remains afebrile hemodynamically stable, blood pressure is stable oxygen saturation 95% on 4 L nasal cannula last x-ray performed on 9, revealed bilateral infiltrate with a right more than left cardiomegaly interstitial edema small pleural effusion noted findings are consistent with pulmonary edema and CHF," is down to 5.3, renal functions are stable, patient has been eval by cardiovascular services, patient presumed to have a diastolic heart failure based on echo performed 2013 however recent echocardiogram is pending This is a 79-year-old obese female who has multiple complex problems she has been not feeling well for the last few days increase in shortness of breath cough and sputum production due to respiratory issues and she is breathing difficulty she came into the hospital she was hypoxic on arrival slightly elevated blood pressure chest x-ray admission on to have a bilateral pneumonia, her previous history significant for hypertension hypertensive cardiovascular disease hypothyroidism poorly controlled diabetes mellitus, she is nonsmoker, currently she is on 4 L oxygen breathing comfortably still have ongoing shortness of breath cough congestion is last patient on broad-spectrum antibiotics, and I will patient was noted to have a lactic acid elevated BNP as high as well with the mild elevation of potassium, her covid 19 test is negative Objective - Vital Signs Vital signs: Vital Signs Temp 97.2 F L 11/22/19 08:00 Pulse 72 11/22/19 08:42 Resp 20 11/22/19 08:00 BP 159/61 11/22/19 08:00 Pulse Ox 95 11/22/19 08:26 Intake & Output 11/21/19 11/22/19 11/22/19 18:59 06:59 18:59 Intake Total 180 236 Output Total 900 2700 Balance -900 -2520 236 Intake: Oral 180 236 Output: Urine 900 2700 Other: # Voids 1 1 # Bowel Movements 1 - Exam - Constitutional General appearance: disheveled, morbidly obese - EENT Eyes: EOMI, PERRLA Ears: bilateral: normal - Neck Neck: normal ROM Carotids: bilateral: upstroke normal, bruit absent Thyroid: bilateral: normal size - Respiratory Respiratory: bilateral: diminished, rales - Cardiovascular Rhythm: regular Heart sounds: normal: S1, S2 - Gastrointestinal General gastrointestinal: splenomegaly - Integumentary Integumentary: normal turgor - Neurologic Neurologic: CNII-XII intact - Musculoskeletal Musculoskeletal: generalized weakness, strength equal bilaterally - Psychiatric Psychiatric: A&O x's 3, appropriate affect, intact judgment & insight - Labs CBC & Chem 7: 11/21/19 06:54 11/22/19 08:17 Labs: Abnormal Lab Results - Last 24 Hours (Table) 11/21/19 11/21/19 11/22/19 Range/Units 12:09 19:57 06:01 Potassium (3.5-5.1) mmol/L Chloride (98-107) mmol/L BUN (7-17) mg/dL Creatinine (0.52-1.04) mg/dL Glucose (74-99) mg/dL POC Glucose (mg/dL) 120 H 138 H 124 H (75-99) mg/dL 11/22/19 Range/Units 08:17 Potassium 5.3 H (3.5-5.1) mmol/L Chloride 108 H (98-107) mmol/L BUN 21 H (7-17) mg/dL Creatinine 1.06 H (0.52-1.04) mg/dL Glucose 128 H (74-99) mg/dL POC Glucose (mg/dL) (75-99) mg/dL Microbiology - Last 24 Hours (Table) 11/20/19 06:05 Blood Culture - Preliminary Blood No Growth after 48 hours Assessment and Plan Assessment: Bilateral pneumonia Acute exacerbation of CHF likely acute on chronic diastolic heart failure Acute hypoxic respirator failure due to multifactorial processes Bilateral pleural effusion Type 2 diabetes Morbid obesity Plan: Broad-spectrum antibiotics Deep breathing exercise incentive spirometry Supplemental oxygen Breathing treatment Continue home medications Gentle diuresis Follow up on echocardiogram DVT prophylaxis Increase activity as tolerated Further plan of care as per clinical response of the patient Time with Patient: Greater than 30
--- NOTE | 2019-11-22 10:54 | P.PN ---
Subjective Progress Note Date: 11/22/19 This is a 79-year-old female patient who currently resides at [facility] [place], undergoing wound care there for a right heel ulcer. She has a history of hypertension, diabetes, chronic diastolic congestive heart failure, came to the emergency room with symptoms of progressively worsening shortness of breath with associated cough. Currently receiving treatment for pneumonia with mild exacerbation of congestive heart failure. The patient overall has been putting out good urine. Her weight is down 1 kg today. Blood pressure 150/80 with a heart rate in the 70s. 98% on 4 L of oxygen. Sodium 139, potassium 5.3, BUN 21 and creatinine 1.0. Objective - Vital Signs Vital signs: Vital Signs Temp 97.2 F L 11/22/19 08:00 Pulse 72 11/22/19 08:42 Resp 20 11/22/19 08:00 BP 159/61 11/22/19 08:00 Pulse Ox 95 11/22/19 08:26 Intake & Output 11/21/19 11/22/19 11/22/19 18:59 06:59 18:59 Intake Total 180 236 Output Total 900 2700 Balance -900 -2520 236 Intake: Oral 180 236 Output: Urine 900 2700 Other: # Voids 1 1 # Bowel Movements 1 - Exam PHYSICAL EXAMINATION: HEENT: Head is atraumatic, normocephalic. Pupils equal, round. Neck is supple. There is no elevated jugular venous pressure. HEART EXAMINATION: Heart sounds regular, S1 and S2 with a systolic murmur at the base. CHEST EXAMINATION: Lungs reveal diminished air entry bilaterally with crackles to bilateral lower lobes. No chest wall tenderness is noted on palpation or with deep breathing. ABDOMEN: Soft, obese, nontender. Bowel sounds are heard. No organomegaly noted. EXTREMITIES: Diminished peripheral pulses with evidence of 1+ peripheral edema and no calf tenderness noted. Dressing noted to right foot.. NEUROLOGIC patient is awake, alert and oriented x3. . - Labs CBC & Chem 7: 11/21/19 06:54 11/22/19 08:17 Labs: Abnormal Lab Results - Last 24 Hours (Table) 11/21/19 11/21/19 11/22/19 Range/Units 12:09 19:57 06:01 Potassium (3.5-5.1) mmol/L Chloride (98-107) mmol/L BUN (7-17) mg/dL Creatinine (0.52-1.04) mg/dL Glucose (74-99) mg/dL POC Glucose (mg/dL) 120 H 138 H 124 H (75-99) mg/dL 11/22/19 Range/Units 08:17 Potassium 5.3 H (3.5-5.1) mmol/L Chloride 108 H (98-107) mmol/L BUN 21 H (7-17) mg/dL Creatinine 1.06 H (0.52-1.04) mg/dL Glucose 128 H (74-99) mg/dL POC Glucose (mg/dL) (75-99) mg/dL Microbiology - Last 24 Hours (Table) 11/20/19 06:05 Blood Culture - Preliminary Blood No Growth after 48 hours Assessment and Plan Plan: Assessment: #1 symptoms of shortness of breath likely secondary to combination of predominantly pneumonia with some underlying heart failure, likely diastolic in nature, LV function unknown at present. Last echo in 2013 revealed a normal left ventricular systolic function, echo this admission is pending. #2 bilateral lower lobe pneumonia #3 anemia #4 nonhealing ulcer to the right heel #5 diabetes #6 hypertension #7 recent admission for acute kidney injury #8 hypothyroidism Plan We will decrease the aspirin to 81 mg daily, increase the dose of Coreg to twice a day dosing, decrease the dose of Cozaar secondary to hyperkalemia. Continue IV Lasix. Continue to monitor the intake and output along with daily weights and daily lytes BUN and creatinine. Repeat chest x-ray tomorrow. DNP note has been reviewed, I agree with a documented findings and plan of care. Patient was seen and examined.
--- NOTE | 2019-11-22 10:59 | CDI ---
Documentation Clarification Form Date: 11/22/2019 10:41:33 AM From: Aimee Duarte RN, CCDS Admit Date: 11/20/2019 05:46:00 AM Patient Name: Jane Malone Visit Number: [id number] ATTENTION: The Clinical Documentation Specialists (CDI) and [facility] Coding Staff appreciate your assistance in clarifying documentation. Please respond to the clarification below the line at the bottom and electronically sign. The CDI & [facility] Coding staff will review the response and follow-up if needed. Please note: Queries are made part of the Legal Health Record. If you have any questions, please contact the author of this message via ITS. Dr. Faisal Fleming Anemia is documented in the 11/20 Cardiology Consult and requires further specificity. . History/Risk Factors: CHF, HTN, DM, Failure to thrive Clinical indicators: Hemoglobin: 8.8/8.1 Hematocrit: 29.9/26.5 Treatment: ASA 325 mg PO QD 0.9% NS @ 20 cc/hr In order to capture the severity of condition, please clarify the type of anemia and etiology if known. Chronic blood loss anemia Iron deficiency anemia Nutritional anemia Anemia of chronic disease Unable to determine Other, please specify (Last Form Revision: September 2019) MTDD
[2019-11-22 11:00] LABS: Anisocytosis Slight; Basophils % (A) 1 %; Eosinophils # (A) 0.4 k/uL (0-0.7); Eosinophils % (A) 7 %; HCT 27.7 % (34.0-46.0); HGB 8.2 gm/dL (11.4-16.0); Hypochromasia Marked; Lymphocytes # (A) 0.8 k/uL (1.0-4.8); Lymphocytes % (A) 15 %; MCH 26.1 pg (25.0-35.0); MCHC 29.7 g/dL (31.0-37.0); MCV 87.9 fL (80.0-100.0); Mean Platelet Volume 7.7; Monocytes # (A) 0.4 k/uL (0-1.0); Monocytes % (A) 7 %; Neutrophils # (A) 3.7 k/uL (1.3-7.7); Neutrophils % (A) 68 %; Platelet Count 299 k/uL (150-450); RBC 3.15 m/uL (3.80-5.40); RDW 16.2 % (11.5-15.5); WBC 5.5 k/uL (3.8-10.6)
[2019-11-22 11:26] LABS: Albumin 2.5 g/dL (3.5-5.0); Calcium 8.6 mg/dL (8.4-10.2); Potassium 5.4 mmol/L (3.5-5.1); Total Bilirubin 0.3 mg/dL (0.2-1.3); Total Protein 5.6 g/dL (6.3-8.2)
--- NOTE | 2019-11-22 11:50 | ECHOF ---
Referral Reason:chf MEASUREMENTS -------- HEIGHT: 160.0 cm WEIGHT: 112.0 kg BP: 149/82 RVIDd: 2.9 cm (< 3.3) IVSd: 1.1 cm (0.6 - 1.1) LVIDd: 4.1 cm (3.9 - 5.3) LVPWd: 1.3 cm (0.6 - 1.1) IVSs: 1.6 cm LVIDs: 2.5 cm LVPWs: 1.8 cm Ao Diam: 2.5 cm (2.0 - 3.7) AV Cusp: 1.5 cm (1.5 - 2.6) LA Diam: 3.4 cm (2.7 - 3.8) MV EXCURSION: 13.883 mm (> 18.000) MV EF SLOPE: 48 mm/s (70 - 150) EPSS: 0.5 cm MV E Raul: 1.61 m/s MV DecT: 256 ms MV A Raul: 1.12 m/s MV E/A Ratio: 1.44 AV maxP.25 mmHg AV meanP.52 mmHg RAP: 5.00 mmHg RVSP: 16.07 mmHg FINDINGS -------- Sinus rhythm. This was a technically adequate study. The left ventricular size is normal. There is mild concentric left ventricular hypertrophy. Overa ll left ventricular systolic function is normal with, an EF between 55 - 60 %. The right ventricle is normal in size. The left atrial size is normal. The right atrial size is normal. Aortic valve is trileaflet and is mildly thickened. There is mild aortic valve sclerosis. Peak/me an gradient across the Aortic Valve is 12.25mmHg / 5.52mmHg. The mitral valve is normal. The mitral valve leaflets are mildly thickened. There is trace mitral regurgitation. The tricuspid valve appears structurally normal. Trace tricuspid regurgitation present. Right lizz tricular systolic pressure is normal at < 35 mmHg. There is no pulmonic regurgitation present. The aortic root size is normal. Normal inferior vena cava with normal inspiratory collapse consistent with estimated right atrial pre ssure of 5 mmHg. There is no pericardial effusion. CONCLUSIONS -------- 1. Sinus rhythm. 2. This was a technically adequate study. 3. The left ventricular size is normal. 4. There is mild concentric left ventricular hypertrophy. 5. Overall left ventricular systolic function is normal with, an EF between 55 - 60 %. 6. The right ventricle is normal in size. 7. The left atrial size is normal. 8. The right atrial size is normal. 9. Aortic valve is trileaflet and is mildly thickened. 10. There is mild aortic valve sclerosis. 11. Peak/mean gradient across the Aortic Valve is 12.25mmHg / 5.52mmHg. 12. The mitral valve is normal. 13. The mitral valve leaflets are mildly thickened. 14. There is trace mitral regurgitation. 15. The tricuspid valve appears structurally normal. 16. Trace tricuspid regurgitation present. 17. Right ventricular systolic pressure is normal at < 35 mmHg. 18. There is no pulmonic regurgitation present. 19. The aortic root size is normal. 20. Normal inferior vena cava with normal inspiratory collapse consistent with estimated right atrial pressure of 5 mmHg. 21. There is no pericardial effusion. [employer]ER: Alley Kinsey RDCS
[2019-11-22 11:56] LABS: Glucose,Whole Blood 140 mg/dL (75-99)
[2019-11-22] MEDS: amLODIPine 10 MG TAB PO SCH (12:44)
--- NOTE | 2019-11-22 14:06 | P.CONS ---
History of Present Illness - Reason for Consult Consult date: 11/22/19 wound care - History of Present Illness This is a 79-year-old patient with nonhealing ulcerations to the left gluteus left lateral leg and the right calcaneus. Patient has been receiving treatment at [facility] with Dr. Beckwith. She was seen at the end of October with the same ulcerations. At that time she had been utilizing Santyl at [facility]. Patient lives alone. Her past medical history significant for congestive heart failure, COPD, diabetes mellitus, hyperlipidemia, hypertension, osteoporosis, hyperthyroidism. Patient denies smoking. Review of Systems Review Of Systems: Constitutional: No fever, no chills, no night sweats. No weight change. Positive weakness, fatigue no lethargy. No daytime sleepiness. Integumentary:reports wounds, no lesions. No rash or pruritus. No unusual bruising. No change in hair or nails. Past Medical History Past Medical History: Heart Failure, COPD, Diabetes Mellitus, Hyperlipidemia, H ypertension, Osteoarthritis (OA), Pneumonia, Skin Disorder, Thyroid Disorder Additional Past Medical History / Comment(s): PUL EDEMA, HIATL HERNIA, EDEMA TO LEGS AND BREAKDOWN/BLISTERS TO MARTÍN LEGS, IBS, EDEMA TO BILAT LE'S History of Any Multi-Drug Resistant Organisms: None Reported Past Surgical History: Cholecystectomy, Tonsillectomy Additional Past Surgical History / Comment(s): neck SX REMOVED BENIGN MASS OUT, RT BREAST BX-BENIGN, LASER EYE SX THINKS ON HER RT EYE. Past Anesthesia/Blood Transfusion Reactions: No Reported Reaction Past Psychological History: No Psychological Hx Reported Smoking Status: Never smoker Past Alcohol Use History: None Reported Past Drug Use History: None Reported - Past Family History Father Family Medical History: Hypertension, Myocardial Infarction (CA) Additional Family Medical History / Comment(s): X3 CA, Mother Family Medical History: Cancer Additional Family Medical History / Comment(s): DIES FROM COLON CA Medications and Allergies Home Medications Medication Instructions Recorded Confirmed Type Carvedilol [Coreg*] 12.5 mg PO DAILY@0800 10/02/19 11/20/19 History Levothyroxine Sodium 100 mcg PO DAILY@0600 10/02/19 11/20/19 History Losartan [Cozaar] 50 mg PO DAILY@0800 10/02/19 11/20/19 History Acetaminophen [Tylenol] 650 mg PO Q4H PRN 10/18/19 11/20/19 History Aspirin EC [Ecotrin] 325 mg PO DAILY@1700 10/18/19 11/20/19 History Bisacodyl [Dulcolax] 10 mg RECTAL DAILY PRN 10/18/19 11/20/19 History INSULIN ASPART (NovoLOG) [NovoLOG 5 unit SQ AC-TID 10/18/19 11/20/19 History (formulary)] Magnesium Hydroxide [Milk of 7,200 mg PO DAILY PRN 10/18/19 11/20/19 History Magnesia Concentrate] Na Phos,M-B/Na Phos,Di-Ba [Fleet 133 ml RECTAL DAILY PRN 10/18/19 11/20/19 History Adult] amLODIPine [Norvasc] 10 mg PO DAILY@0800 10/18/19 11/20/19 History Insulin Detemir (Levemir) [Levemir] 15 unit SQ DAILY@0700 11/08/19 11/20/19 History Collagenase [Santyl] 1 applic TOPICAL DAILY 11/20/19 11/20/19 History Glucerna Shake 120 ml PO TID@0800,1200,1700 11/20/19 11/20/19 History Lidocaine 5% Oint [Xylocaine 5% 1 applic TOPICAL DAILY PRN 11/20/19 11/20/19 History Oint] Liquical 30 ml PO BID@0800,1700 11/20/19 11/20/19 History Allergies Allergy/AdvReac Type Severity Reaction Status Date / Time Penicillins Allergy Rash/Hives Verified 11/20/19 12:09 Physical Exam Vitals: Vital Signs Temp Pulse Pulse Resp BP Pulse Ox 11/22/19 12:00 97.7 F 61 20 125/56 98 11/22/19 08:42 72 11/22/19 08:26 76 95 11/22/19 08:00 97.2 F L 77 20 159/61 96 11/22/19 04:00 98.1 F 71 16 149/82 98 11/22/19 00:00 98.5 F 62 18 132/56 96 11/21/19 20:00 98.4 F 68 18 143/55 96 11/21/19 19:51 74 11/21/19 19:38 70 11/21/19 15:58 72 11/21/19 15:47 70 96 11/21/19 15:40 98.3 F 67 18 136/57 95 Intake and Output 11/21/19 11/22/19 11/22/19 22:59 06:59 14:59 Intake Total 180 236 Output Total 1000 1700 Balance -820 -1700 236 Intake: Oral 180 236 Output: Urine 1000 1700 Other: Voiding Method Bedside Commode Diaper # Voids 1 # Bowel Movements 1 Physical exam: General Appearance: Alert, cooperative, no distress, appears stated age. Skin: Right calcaneus ulceration has an eschar. Significant amount of loss noted with no granulation seen within the wound bed. No tunneling or undermining. Measuring approximate 6 x 4 x 0.3 cm, has callus and dry skin noted. Left gluteus ulcerations full-thickness stage II pressure ulceration with minimal granulation seen within the wound bed moderate slough noted. The periwound does show maceration. There is no undermining or tunneling. Measuring approximately 4 x 4 x 0.2 cm, there is an ulceration to the left lateral room that is a nonhealing ulceration with fat layer exposure with moderate granulation seen throughout wound bed and minimal slough. No tunneling or undermining noted measuring approximately 2.5 x 1 x 0.1 cm all other Skin color, texture, tugor normal, no rashes or lesions. Neurologic: Alert oriented x3 Results CBC & Chem 7: 11/22/19 08:17 11/22/19 08:17 Labs: Abnormal Lab Results - Last 24 Hours (Table) 11/21/19 11/22/19 11/22/19 Range/Units 19:57 06:01 08:17 RBC (3.80-5.40) m/uL Hgb (11.4-16.0) gm/dL Hct (34.0-46.0) % MCHC (31.0-37.0) g/dL RDW (11.5-15.5) % Lymphocytes # (1.0-4.8) k/uL Potassium 5.3 H (3.5-5.1) mmol/L Chloride 108 H (98-107) mmol/L BUN 21 H (7-17) mg/dL Creatinine 1.06 H (0.52-1.04) mg/dL Glucose 128 H (74-99) mg/dL POC Glucose (mg/dL) 138 H 124 H (75-99) mg/dL Total Protein (6.3-8.2) g/dL Albumin (3.5-5.0) g/dL 11/22/19 11/22/19 11/22/19 Range/Units 08:17 08:17 11:55 RBC 3.15 L (3.80-5.40) m/uL Hgb 8.2 L (11.4-16.0) gm/dL Hct 27.7 L (34.0-46.0) % MCHC 29.7 L (31.0-37.0) g/dL RDW 16.2 H (11.5-15.5) % Lymphocytes # 0.8 L (1.0-4.8) k/uL Potassium 5.4 H (3.5-5.1) mmol/L Chloride 109 H (98-107) mmol/L BUN 21 H (7-17) mg/dL Creatinine (0.52-1.04) mg/dL Glucose 126 H (74-99) mg/dL POC Glucose (mg/dL) 140 H (75-99) mg/dL Total Protein 5.6 L (6.3-8.2) g/dL Albumin 2.5 L (3.5-5.0) g/dL Microbiology - Last 24 Hours (Table) 11/20/19 06:05 Blood Culture - Preliminary Blood No Growth after 48 hours Assessment and Plan (1) Diabetic foot ulcer associated with type 2 diabetes mellitus, with fat layer exposed Current Visit: Yes Status: Acute Code(s): E11.621 - TYPE 2 DIABETES MELLITUS WITH FOOT ULCER; L97.502 - NON-PRS CHRONIC ULCER OTH PRT UNSP FOOT W FAT LAYER EXPOSED SNOMED Code(s): 0722141843712 (2) Diabetes mellitus with skin ulcer Current Visit: No Status: Acute Code(s): E11.622 - TYPE 2 DIABETES MELLITUS WITH OTHER SKIN ULCER; L98.499 - NON-PRESSURE CHRONIC ULCER OF SKIN OF SITES W UNSP SEVERITY SNOMED Code(s): 78134412 (3) Pressure injury of right heel, unstageable Current Visit: No Status: Acute Code(s): L89.610 - PRESSURE ULCER OF RIGHT HEEL, UNSTAGEABLE SNOMED Code(s): 921457884 (4) Pressure ulcer of left buttock, stage 2 Current Visit: No Status: Acute Code(s): L89.322 - PRESSURE ULCER OF LEFT BUTTOCK, STAGE 2 SNOMED Code(s): 952923775 Plan: Previous x-ray of the right calcaneus did not show any signs of osteomyelitis. Order was changed to honey gel to the right calcaneus which can continue. Nonweightbearing to the right calcaneus. Utilize honey alginate to the left gluteus and left lateral leg. Apply saline moistened gauze and a foam border dressing. Change Friday and Friday. [facility] Dr[facility] otherwise she will need to follow in a outpatient wound care clinic. Patient verbalized understanding. Thank you kindly for the consultation any questions please contact the wound care center. DNP note has been reviewed and discussed with Dr. Barone and the impression and plan of care has been directed as dictated.
--- NOTE | 2019-11-22 15:33 | XR ---
EXAMINATION TYPE: XR chest 1V portable DATE OF EXAM: 11/22/2019 COMPARISON: Prior chest x-ray 11/21/2019 HISTORY: Pneumonitis, congestive heart failure TECHNIQUE: Single frontal view of the chest is obtained. FINDINGS: Heart is stable. Bibasilar increased density persists, there is perihilar increased attenu ation greater than the right as on prior. Aorta is dense. No evident pneumothorax. There are overlyin g cardiac leads. IMPRESSION: Findings are similar to prior exam. Correlate for perihilar edema, pneumonia, there may be pleural effusion. Follow-up to resolution to exclude underlying mass.
--- NOTE | 2019-11-22 16:00 | MISC ---
MISCELLANOUS REPORT QUERY: Type of blood loss: Unable to determine. MMODL / IJN: [id number] /
[2019-11-22 16:33] LABS: Glucose,Whole Blood 83 mg/dL (75-99)
--- NOTE | 2019-11-22 17:09 | PN ---
PROGRESS NOTE DATE OF SERVICE: 11/21/2019 CHIEF COMPLAINT: Pneumonitis. HISTORY OF PRESENT ILLNESS: This lady remains quite weak, but oriented. She is less short of breath. PHYSICAL EXAMINATION: Breath sounds are heard on both sides, but there is scattered rales and rhonchi. The cardiac exam is normal. The abdomen is soft and nontender. Extremities are unchanged and she has a large decubitus on the right posterior heel which is old and being treated. IMPRESSION: 1. Bilateral bronchial pneumonia. 2. Congestive heart failure. 3. Neurotic excoriations. 4. Dependent edema. 5. Stage III decubitus on the posterior right heel. PLAN: Continue with IV fluids, antibiotics and updrafts with dressings to the right heel. MMODL / IJN: [id number] /
--- NOTE | 2019-11-22 17:26 | PN ---
PROGRESS NOTE CHIEF COMPLAINT: Bronchopneumonia. HISTORY OF PRESENT ILLNESS: This lady continues to slowly improve. She is still essentially at bedrest. She is still short of breath. She is complaining of some sensations about her right eye in the right side of her face. She has no weakness. She has had no problems with the arm and the leg. PHYSICAL EXAMINATION: She remains pale. Facial musculature is intact. The chest is clearing with few rales and rhonchi bilaterally and the cardiac exam is normal. The abdomen is soft, nontender and the heels and unchanged. IMPRESSION: 1. Bilateral bronchopneumonia. 2. Congestive heart failure. 3. Dysesthesias of the right side of the face, etiology unknown. PLAN: 1. Repeat laboratory studies and chest x-ray. 2. Continue with updrafts, IV fluids and antibiotics. MMODL / HEAVENLYN: [id number] /
[2019-11-22] MEDS: ASPIRIN 81 MG PO SCH (17:33)
--- NOTE | 2019-11-22 18:24 | PN ---
PROGRESS NOTE DATE OF SERVICE: 11/22/2019 REASON FOR FOLLOWUP: Pneumonia and right heel wound. INTERVAL HISTORY: The patient is currently afebrile. The patient is breathing more comfortably. Denies having any chest pain. She did have a cough but was not bringing up any sputum. No nausea or vomiting or abdominal pain. Pain to the right heel is currently controlled. PHYSICAL EXAMINATION: Blood pressure 122/52 with a pulse of 63, temperature 97.8. She is 98% on 4 L nasal cannula. General description is an elderly female up in the chair in no distress. RESPIRATORY SYSTEM: Unlabored breathing. Clear to auscultation anteriorly. HEART: S1, S2. Regular rate and rhythm. ABDOMEN: Soft. No tenderness. LABS: Hemoglobin 8.8, white count 5.5, BUN of 21, creatinine 1.03. Blood culture has been negative. DIAGNOSTIC IMPRESSION AND PLAN: 1. Patient admitted to hospital with increasing shortness of breath with concern for basilar pneumonia. X-ray did not show any significant changes. Blood culture has been negative. She was not able to provide any sputum. Clinically improved. Continue with cefepime because of her PENICILLIN ALLERGY. 2. Right heel wound. Local care to continue with [facility]. Monitor her clinical course closely. MMODL / IJN: [id number] /
[2019-11-22 20:28] LABS: Glucose,Whole Blood 145 mg/dL (75-99)
[2019-11-22] MEDS: ACETAMINOPHEN TAB 325 MG TAB PO PRN (20:45)
[2019-11-23 05:56] LABS: Glucose,Whole Blood 145 mg/dL (75-99)
[2019-11-23] MEDS: LEVOTHYROXINE 100 MCG TAB PO SCH (05:59)
[2019-11-23] MEDS: CARVEDILOL 12.5 MG TAB PO SCH ×2 (06:51→17:32)
[2019-11-23] MEDS: INSULIN DETEMIR (LEVEMIR) 100 UNIT/ML SYR SQ SCH (06:52)
[2019-11-23] MEDS: INSULIN ASPART (NovoLOG) 100 UNIT/ML VIAL SQ SCH ×3 (06:53→17:32)
[2019-11-23] MEDS: IPRATROPIUM-ALBUTEROL 3 ML NEB INHALATION SCH ×4 (08:10→20:52)
[2019-11-23] MEDS: SODIUM CHLORIDE 0.9% 1,000 ML IV SCH ×2 (08:58→20:03)
[2019-11-23] MEDS: LOSARTAN 25 MG TAB PO SCH (08:59)
[2019-11-23] MEDS: FUROSEMIDE 10 MG/ML 4 ML VIAL IV SCH ×2 (08:59→20:02)
[2019-11-23] MEDS: ENOXAPARIN 40 MG/0.4 ML SYRINGE SQ SCH (08:59)
[2019-11-23] MEDS: amLODIPine 10 MG TAB PO SCH (08:59)
[2019-11-23] MEDS: CEFEPIME 2 GM in SODIUM CHLORIDE 0.9% 100 ML IVPB SCH ×2 (09:07→23:01)
[2019-11-23 10:49] VITALS: BMI 44.9
--- NOTE | 2019-11-23 11:18 | P.PN ---
Subjective Progress Note Date: 11/23/19 Principal diagnosis: Bilateral pneumonia Acute exacerbation of CHF likely acute on chronic diastolic heart failure Acute hypoxic respirator failure due to multifactorial processes Type 2 diabetes Morbid obesity 11/23/2019, patient seen eval reexamined during the rounds labs reviewed medications reviewed, patient remains on 4 L oxygen saturation is 95%, hemodynamically stable, last chest x-ray continued to show similar, she remains on broad-spectrum antibiotic with cefepime tolerating well will continue to titrate oxygen down as tolerated Current vent pulmonary edema pneumonia small bilateral pleural effusion 11/22/2019, patient seen eval examined during the rounds he remains afebrile hemodynamically stable, blood pressure is stable oxygen saturation 95% on 4 L nasal cannula last x-ray performed on , revealed bilateral infiltrate with a right more than left cardiomegaly interstitial edema small pleural effusion noted findings are consistent with pulmonary edema and CHF," is down to 5.3, renal functions are stable, patient has been eval by cardiovascular services, patient presumed to have a diastolic heart failure based on echo performed 2013 however recent echocardiogram is pending This is a 79-year-old obese female who has multiple complex problems she has been not feeling well for the last few days increase in shortness of breath cough and sputum production due to respiratory issues and she is breathing difficulty she came into the hospital she was hypoxic on arrival slightly elevated blood pressure chest x-ray admission on to have a bilateral pneumonia, her previous history significant for hypertension hypertensive cardiovascular disease hypothyroidism poorly controlled diabetes mellitus, she is nonsmoker, currently she is on 4 L oxygen breathing comfortably still have ongoing shortness of breath cough congestion is last patient on broad-spectrum antibiotics, and I will patient was noted to have a lactic acid elevated BNP as high as well with the mild elevation of potassium, her covid 19 test is negative Objective - Vital Signs Vital signs: Vital Signs Temp 98 F 11/23/19 08:00 Pulse 66 11/23/19 08:00 Resp 16 11/23/19 08:00 BP 157/72 11/23/19 08:00 Pulse Ox 95 11/23/19 08:00 Intake & Output 11/22/19 11/23/19 11/23/19 18:59 06:59 18:59 Intake Total 596 Output Total 900 2450 Balance -304 -2450 Weight 115 kg 115 kg Intake: Oral 596 Output: Urine 900 2450 Other: Voiding Method Bedside Commode Bedside Commode Bedside Commode Diaper # Bowel Movements 1 - Exam - Constitutional General appearance: disheveled, morbidly obese - EENT Eyes: EOMI, PERRLA Ears: bilateral: normal - Neck Neck: normal ROM Carotids: bilateral: upstroke normal, bruit absent Thyroid: bilateral: normal size - Respiratory Respiratory: bilateral: diminished, rales - Cardiovascular Rhythm: regular Heart sounds: normal: S1, S2 - Gastrointestinal General gastrointestinal: splenomegaly - Integumentary Integumentary: normal turgor - Neurologic Neurologic: CNII-XII intact - Musculoskeletal Musculoskeletal: generalized weakness, strength equal bilaterally - Psychiatric Psychiatric: A&O x's 3, appropriate affect, intact judgment & insight - Labs CBC & Chem 7: 11/22/19 08:17 11/22/19 08:17 Labs: Abnormal Lab Results - Last 24 Hours (Table) 11/22/19 11/22/19 11/22/19 Range/Units 08:17 11:55 20:27 Potassium 5.4 H (3.5-5.1) mmol/L Chloride 109 H (98-107) mmol/L BUN 21 H (7-17) mg/dL Glucose 126 H (74-99) mg/dL POC Glucose (mg/dL) 140 H 145 H (75-99) mg/dL Total Protein 5.6 L (6.3-8.2) g/dL Albumin 2.5 L (3.5-5.0) g/dL 11/23/19 Range/Units 05:55 Potassium (3.5-5.1) mmol/L Chloride (98-107) mmol/L BUN (7-17) mg/dL Glucose (74-99) mg/dL POC Glucose (mg/dL) 145 H (75-99) mg/dL Total Protein (6.3-8.2) g/dL Albumin (3.5-5.0) g/dL Microbiology - Last 24 Hours (Table) 11/20/19 06:05 Blood Culture - Preliminary Blood No Growth after 72 hours Assessment and Plan Assessment: Bilateral pneumonia Acute exacerbation of CHF likely acute on chronic diastolic heart failure Acute hypoxic respirator failure due to multifactorial processes Bilateral pleural effusion Type 2 diabetes Morbid obesity Plan: Broad-spectrum antibiotics Deep breathing exercise incentive spirometry Supplemental oxygen, continued to titrated down as tolerated Breathing treatment Continue home medications Gentle diuresis Follow up on echocardiogram DVT prophylaxis Increase activity as tolerated Further plan of care as per clinical response of the patient Time with Patient: Greater than 30
[2019-11-23 11:47] LABS: Glucose,Whole Blood 130 mg/dL (75-99)
--- NOTE | 2019-11-23 12:19 | PN ---
PROGRESS NOTE Jane is a 79-year-old lady who is admitted to hospital with shortness of breath, was a resident of [facility], primarily has pneumonia with some mild exacerbation of congestive heart failure. Patient is currently on aspirin, Coreg, IV Lasix, Synthroid, Cozaar. PHYSICAL EXAM: Shows that the patient is afebrile. Heart rate is 66 beats per minute, blood pressure 157/72, O2 saturation is 95% in 4 L. There is no jugular venous distention. There is mild edema peripherally. LABS: I do not have any labs from today. Chest x-ray shows primary pneumonia. I will switch the Lasix to p.o. and continue rest of her medications. MMODL / IJN: [id number] /
[2019-11-23] MEDS: ACETAMINOPHEN TAB 325 MG TAB PO PRN (12:33)
--- NOTE | 2019-11-23 14:10 | PN ---
PROGRESS NOTE CHIEF COMPLAINT: Failure to thrive, bilateral lower lobe bronchial pneumonia. HISTORY OF PRESENT ILLNESS: This lady is not doing particularly well. She is not moving about today. She is complaining of increasing shortness of breath. She has had no chest pain, abdominal pain, chills, fever, nausea, etc. PHYSICAL EXAMINATION: She remains pale. She has scattered rales and rhonchi in both lung bernabe. The cardiac exam is normal and the abdomen is soft and there are no masses or visceromegaly. Extremities are unchanged. IMPRESSION: 1. Bilateral lower lobe pneumonitis. 2. Congestive heart failure. 3. 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 4. General debility and failure to thrive. PLAN: Continue with IV fluids, antibiotics and try to increase activity before she returns to the [facility]. MMODL / IJN: [id number] /
--- NOTE | 2019-11-23 16:39 | PN ---
PROGRESS NOTE DATE OF SERVICE: 11/23/2019 REASON FOR FOLLOWUP: Pneumonia and right heel wound. INTERVAL HISTORY: The patient is feeling slightly better, breathing comfortably. He did have a cough but not bringing up any sputum. No chest pain. No abdominal pain or pain to the right heel area. PHYSICAL EXAMINATION: Blood pressure is 124/50 with a pulse of 58, Temperature is 97.6. She is 98% on 4 L nasal cannula. General description is an elderly female, lying in bed in no distress. RESPIRATORY SYSTEM: Unlabored breathing, clear to auscultation anteriorly. HEART: S1, S2. Regular rate and rhythm. ABDOMEN: Soft, no tenderness. Left knee is currently dressed up. LABS: No new labs have been obtained today. Blood culture has been negative, no sputum was collected. DIAGNOSTIC IMPRESSION AND PLAN: Patient admitted to hospital with difficulty breathing and wheezing with concern for pneumonia, possible Gram-negative. The patient does have PENICILLIN ALLERGY and is currently covered with cefepime to continue try to obtain to narrow down antibiotics and continue supportive care. MMODL / IJN: [id number] /
[2019-11-23 17:08] LABS: Glucose,Whole Blood 114 mg/dL (75-99)
[2019-11-23] MEDS: ASPIRIN 81 MG PO SCH (17:32)
[2019-11-23 21:04] LABS: Glucose,Whole Blood 108 mg/dL (75-99)
[2019-11-23] MEDS: MORPHINE SULFATE 4 MG/ML SYRINGE IVP PRN (21:53)
[2019-11-24] MEDS: LEVOTHYROXINE 100 MCG TAB PO SCH (05:54)
[2019-11-24 06:22] LABS: Glucose,Whole Blood 115 mg/dL (75-99)
[2019-11-24] MEDS: INSULIN DETEMIR (LEVEMIR) 100 UNIT/ML SYR SQ SCH ×2 (06:41→07:08)
[2019-11-24] MEDS: CARVEDILOL 12.5 MG TAB PO SCH ×2 (06:41→16:39)
[2019-11-24] MEDS: INSULIN ASPART (NovoLOG) 100 UNIT/ML VIAL SQ SCH ×3 (06:43→16:59)
[2019-11-24] MEDS: IPRATROPIUM-ALBUTEROL 3 ML NEB INHALATION SCH ×4 (07:34→20:17)
[2019-11-24] MEDS: MORPHINE SULFATE 4 MG/ML SYRINGE IVP PRN ×2 (08:30→13:54)
[2019-11-24] MEDS: FUROSEMIDE 10 MG/ML 4 ML VIAL IV SCH ×2 (08:32→21:31)
[2019-11-24] MEDS: ENOXAPARIN 40 MG/0.4 ML SYRINGE SQ SCH (08:33)
[2019-11-24] MEDS: LOSARTAN 25 MG TAB PO SCH (08:34)
[2019-11-24] MEDS: LEVOFLOXACIN 750 MG TAB PO SCH (08:34)
[2019-11-24] MEDS: amLODIPine 10 MG TAB PO SCH (08:34)
[2019-11-24] MEDS: CEFEPIME 2 GM in SODIUM CHLORIDE 0.9% 100 ML IVPB SCH ×2 (10:25→21:31)
[2019-11-24 11:14] LABS: Glucose,Whole Blood 119 mg/dL (75-99)
[2019-11-24 11:15] LABS: Basophils % (A) 1 %; Eosinophils # (A) 0.4 k/uL (0-0.7); Eosinophils % (A) 7 %; HCT 26.4 % (34.0-46.0); HGB 8.2 gm/dL (11.4-16.0); Hypochromasia Marked; Lymphocytes # (A) 0.9 k/uL (1.0-4.8); Lymphocytes % (A) 15 %; MCHC 31.1 g/dL (31.0-37.0); MCV 86.7 fL (80.0-100.0); Mean Platelet Volume 7.3; Monocytes # (A) 0.5 k/uL (0-1.0); Monocytes % (A) 8 %; Neutrophils # (A) 3.8 k/uL (1.3-7.7); Neutrophils % (A) 66 %; Platelet Count 287 k/uL (150-450); RBC 3.05 m/uL (3.80-5.40); RDW 15.9 % (11.5-15.5); WBC 5.8 k/uL (3.8-10.6)
[2019-11-24 11:30] LABS: Albumin 2.6 g/dL (3.5-5.0); Potassium 4.7 mmol/L (3.5-5.1); Total Bilirubin 0.3 mg/dL (0.2-1.3); Total Protein 5.6 g/dL (6.3-8.2)
--- NOTE | 2019-11-24 15:15 | P.PN ---
Subjective Progress Note Date: 11/24/19 Principal diagnosis: Bilateral pneumonia Acute exacerbation of CHF likely acute on chronic diastolic heart failure Acute hypoxic respirator failure due to multifactorial processes Type 2 diabetes Morbid obesity 11/24/2019, patient seen eval examined during the rounds, oxygen have been lowered down to 3 L, saturation 95% narrowing status stable, ongoing with breathing treatments along with broad-spectrum antibiotics and Lasix have been 40 IV every 12 however. BUNs creatinine, Going up as well as to come down 11/23/2019, patient seen eval reexamined during the rounds labs reviewed medications reviewed, patient remains on 4 L oxygen saturation is 95%, hemodynamically stable, last chest x-ray continued to show similar, she remains on broad-spectrum antibiotic with cefepime tolerating well will continue to titrate oxygen down as tolerated Current vent pulmonary edema pneumonia small bilateral pleural effusion 11/22/2019, patient seen eval examined during the rounds he remains afebrile hemodynamically stable, blood pressure is stable oxygen saturation 95% on 4 L nasal cannula last x-ray performed on , revealed bilateral infiltrate with a right more than left cardiomegaly interstitial edema small pleural effusion noted findings are consistent with pulmonary edema and CHF," is down to 5.3, renal functions are stable, patient has been eval by cardiovascular services, patient presumed to have a diastolic heart failure based on echo performed 2013 however recent echocardiogram is pending This is a 79-year-old obese female who has multiple complex problems she has been not feeling well for the last few days increase in shortness of breath cough and sputum production due to respiratory issues and she is breathing difficulty she came into the hospital she was hypoxic on arrival slightly elevated blood pressure chest x-ray admission on to have a bilateral pneumonia, her previous history significant for hypertension hypertensive cardiovascular disease hypothyroidism poorly controlled diabetes mellitus, she is nonsmoker, currently she is on 4 L oxygen breathing comfortably still have ongoing shortness of breath cough congestion is last patient on broad-spectrum antibiotics, and I will patient was noted to have a lactic acid elevated BNP as high as well with the mild elevation of potassium, her covid 19 test is negative Objective - Vital Signs Vital signs: Vital Signs Temp 98 F 11/24/19 13:51 Pulse 62 11/24/19 13:51 Resp 16 11/24/19 13:51 BP 115/46 11/24/19 13:51 Pulse Ox 95 11/24/19 13:51 Intake & Output 11/23/19 11/24/19 11/24/19 18:59 06:59 18:59 Intake Total 340 220 Output Total 2700 1450 750 Balance -2360 -1450 -530 Weight 115 kg 113 kg Intake: IV 100 100 Cefepime 2 gm In Sodium 100 100 Chloride 0.9% 100 ml @ 200 mls/hr IVPB Q12H [facility] Rx#:[id number] Oral 240 120 Output: Urine 2700 1450 750 Other: Voiding Method Bedside Commode Bedside Commode - Exam - Constitutional General appearance: disheveled, morbidly obese - EENT Eyes: EOMI, PERRLA Ears: bilateral: normal - Neck Neck: normal ROM Carotids: bilateral: upstroke normal, bruit absent Thyroid: bilateral: normal size - Respiratory Respiratory: bilateral: diminished, rales - Cardiovascular Rhythm: regular Heart sounds: normal: S1, S2 - Gastrointestinal General gastrointestinal: splenomegaly - Integumentary Integumentary: normal turgor - Neurologic Neurologic: CNII-XII intact - Musculoskeletal Musculoskeletal: generalized weakness, strength equal bilaterally - Psychiatric Psychiatric: A&O x's 3, appropriate affect, intact judgment & insight - Labs CBC & Chem 7: 11/24/19 10:59 11/24/19 10:59 Labs: Abnormal Lab Results - Last 24 Hours (Table) 11/23/19 11/23/19 11/24/19 Range/Units 16:57 21:03 06:21 RBC (3.80-5.40) m/uL Hgb (11.4-16.0) gm/dL Hct (34.0-46.0) % RDW (11.5-15.5) % Lymphocytes # (1.0-4.8) k/uL Carbon Dioxide (22-30) mmol/L BUN (7-17) mg/dL Creatinine (0.52-1.04) mg/dL Glucose (74-99) mg/dL POC Glucose (mg/dL) 114 H 108 H 115 H (75-99) mg/dL Alkaline Phosphatase (38-126) U/L Total Protein (6.3-8.2) g/dL Albumin (3.5-5.0) g/dL 05/13/20 05/13/20 05/13/20 Range/Units 10:59 10:59 11:12 RBC 3.05 L (3.80-5.40) m/uL Hgb 8.2 L (11.4-16.0) gm/dL Hct 26.4 L (34.0-46.0) % RDW 15.9 H (11.5-15.5) % Lymphocytes # 0.9 L (1.0-4.8) k/uL Carbon Dioxide 35 H (22-30) mmol/L BUN 43 H (7-17) mg/dL Creatinine 1.33 H (0.52-1.04) mg/dL Glucose 108 H (74-99) mg/dL POC Glucose (mg/dL) 119 H (75-99) mg/dL Alkaline Phosphatase 152 H (38-126) U/L Total Protein 5.6 L (6.3-8.2) g/dL Albumin 2.6 L (3.5-5.0) g/dL Microbiology - Last 24 Hours (Table) 11/20/19 06:05 Blood Culture - Preliminary Blood No Growth after 96 hours Assessment and Plan Assessment: Bilateral pneumonia Acute exacerbation of CHF likely acute on chronic diastolic heart failure Acute hypoxic respirator failure due to multifactorial processes Bilateral pleural effusion Type 2 diabetes Morbid obesity Plan: Broad-spectrum antibiotics Deep breathing exercise incentive spirometry Supplemental oxygen, continued to titrated down as tolerated Breathing treatment Continue home medications Gentle diuresis Follow up on echocardiogram DVT prophylaxis Increase activity as tolerated Further plan of care as per clinical response of the patient Time with Patient: Greater than 30
--- NOTE | 2019-11-24 15:59 | XR ---
EXAMINATION TYPE: XR chest 1V portable DATE OF EXAM: 11/24/2019 COMPARISON: 11/22/2019 INDICATION: Pneumonia TECHNIQUE: Single frontal view of the chest is obtained. FINDINGS: The heart size is normal. The pulmonary vasculature is normal. Right lower lobe infiltrate with a few air bronchograms are present. This has improved over the inter saurav. Small left pleural effusion remains present. IMPRESSION: 1. Improving right lower lobe infiltrate. 2. Stable small left pleural effusion
[2019-11-24 16:32] LABS: Glucose,Whole Blood 140 mg/dL (75-99)
--- NOTE | 2019-11-24 16:33 | PN ---
PROGRESS NOTE DATE OF SERVICE: 11/24/2019 REASON FOR FOLLOWUP: Right lower lobe pneumonia. INTERVAL HISTORY: The patient is currently afebrile. The patient is breathing more comfortably. The patient denies having any chest pain. She did have some cough but not bringing up any sputum. No nausea, vomiting, abdominal pain, or any diarrhea or any worsening pain to the right heel area. PHYSICAL EXAMINATION: Blood pressure 150/46, pulse of 62, temperature 98. She is 95% on 2 L nasal cannula. General description is an elderly female, lying in bed in no distress. RESPIRATORY SYSTEM: Unlabored breathing, clear to auscultation anteriorly. HEART: S1, S2. Regular rate and rhythm. ABDOMEN: Soft, no tenderness. LABS: Hemoglobin 8.2, white count of 5.2, BUN of 43, creatinine 1.33. Chest x-ray this afternoon shows overall improved right lower lobe pneumonia. DIAGNOSTIC IMPRESSION AND PLAN: Patient has right lower lobe pneumonia with concern for possible nosocomial as the patient is a [facility] resident. She seems to be clinically improving on the cefepime to finish therapy with oral Avelox 400 daily for about a week and continue supportive care. MMODL / IJN: [id number] /
[2019-11-24] MEDS: SODIUM CHLORIDE 0.9% 1,000 ML IV SCH (16:39)
[2019-11-24] MEDS: ASPIRIN 81 MG PO SCH (16:59)
--- NOTE | 2019-11-24 17:11 | PN ---
PROGRESS NOTE DATE OF SERVICE: 11/24/2019 CHIEF COMPLAINT: Bronchopneumonia, congestive heart failure. HISTORY OF PRESENT ILLNESS: This lady is not improving very quickly. She remains quite short of breath and continues to have audible wheezing and rhonchi as well as rales on auscultation. Cardiac exam is normal and the abdomen is soft and nontender. Physical exam is otherwise unchanged. IMPRESSION: 1. Bronchopneumonia. 2. Congestive heart failure. 3. General debility. 4. Failure to thrive. 5. Stage IV decubitus in the right heel. PLAN: Continue IV fluids, updrafts in hopes that her pulmonary status improves enough over this next several days that she can [facility] to the shelter. MMODL / IJN: [id number] /
[2019-11-24] MEDS ORDERED: METOCLOPRAMIDE 5 MG/ML 2 ML VIAL IVP PRN (17:28)
[2019-11-24 21:16] LABS: Glucose,Whole Blood 111 mg/dL (75-99)
[2019-11-25 06:19] LABS: Glucose,Whole Blood 131 mg/dL (75-99)
[2019-11-25] MEDS: INSULIN ASPART (NovoLOG) 100 UNIT/ML VIAL SQ SCH ×3 (06:48→17:30)
[2019-11-25] MEDS: INSULIN DETEMIR (LEVEMIR) 100 UNIT/ML SYR SQ SCH (06:49)
[2019-11-25] MEDS: CARVEDILOL 12.5 MG TAB PO SCH ×2 (06:49→17:30)
[2019-11-25] MEDS: LEVOTHYROXINE 100 MCG TAB PO SCH (06:49)
[2019-11-25] MEDS: IPRATROPIUM-ALBUTEROL 3 ML NEB INHALATION SCH ×4 (07:25→20:49)
[2019-11-25] MEDS: LOSARTAN 25 MG TAB PO SCH (07:56)
[2019-11-25] MEDS: ENOXAPARIN 40 MG/0.4 ML SYRINGE SQ SCH (07:56)
[2019-11-25] MEDS: amLODIPine 10 MG TAB PO SCH (07:56)
[2019-11-25] MEDS: FUROSEMIDE 10 MG/ML 4 ML VIAL IV SCH (07:57)
[2019-11-25] MEDS: CEFEPIME 2 GM in SODIUM CHLORIDE 0.9% 100 ML IVPB SCH ×2 (10:36→20:38)
[2019-11-25 11:59] LABS: Glucose,Whole Blood 121 mg/dL (75-99)
[2019-11-25 12:19] LABS: Albumin 2.8 g/dL (3.5-5.0); Calcium 8.8 mg/dL (8.4-10.2); Potassium 4.4 mmol/L (3.5-5.1); Total Bilirubin 0.3 mg/dL (0.2-1.3); Total Protein 5.9 g/dL (6.3-8.2)
[2019-11-25 12:25] LABS: Anisocytosis Slight; Basophils % (A) 1 %; Eosinophils # (A) 0.4 k/uL (0-0.7); Eosinophils % (A) 7 %; HCT 28.4 % (34.0-46.0); HGB 8.4 gm/dL (11.4-16.0); Hypochromasia Marked; Lymphocytes # (A) 0.8 k/uL (1.0-4.8); Lymphocytes % (A) 13 %; MCH 26.3 pg (25.0-35.0); MCHC 29.8 g/dL (31.0-37.0); MCV 88.3 fL (80.0-100.0); Mean Platelet Volume 7.3; Monocytes # (A) 0.5 k/uL (0-1.0); Monocytes % (A) 9 %; Neutrophils % (A) 67 %; Platelet Count 283 k/uL (150-450); RBC 3.21 m/uL (3.80-5.40); WBC 5.9 k/uL (3.8-10.6)
--- NOTE | 2019-11-25 12:48 | P.NPCON ---
History of Present Illness - Reason for Consult acute renal failure - History of Present Illness Reason for consultation: Acute kidney injury History of present illness: Patient is a 79-year-old female seen in renal consultation for acute kidney injury. Creatinine is up to 1.33 today. Patient presented to the hospital on 11/20/2019 with hypoxia and shortness of breath. She was sent over from rehab facility. She has been maintained on IV Lasix 40 mg twice daily and was discontinued this morning due to worsening renal function. Her most recent chest x-ray shows small bilateral pleural effusions. She is currently having lunch. Patient states her edema and dyspnea have both improved since admission. She admits to good urine output. Currently has an external catheter. Nonoliguric. No hematuria or dysuria. No vomiting or diarrhea although she did have dry heaving yesterday. She denies regular use of nonsteroidals. Patient states her sister was on hemodialysis and is now but is unsure of the etiology. Echocardiogram done this admission revealed preserved ejection fraction. Hemodynamically stable. No fever or chills. No cough. She does have long-standing history of diabetes mellitus and is maintained on insulin. Vital signs are stable. General: The patient appeared well nourished and normally developed. HEENT: Head exam is unremarkable. Neck is without jugular venous distension. LUNGS: Breath sounds decreased. HEART: Rate and Rhythm are regular. ABDOMEN: Nontender, nondistended. EXTREMITITES: Trace edema. Past Medical History Past Medical History: Heart Failure, COPD, Diabetes Mellitus, Hyperlipidemia, Hypertension, Osteoarthritis (OA), Pneumonia, Skin Disorder, Thyroid Disorder Additional Past Medical History / Comment(s): PUL EDEMA, HIATL HERNIA, EDEMA TO LEGS AND BREAKDOWN/BLISTERS TO MARTÍN LEGS, IBS, EDEMA TO BILAT LE'S History of Any Multi-Drug Resistant Organisms: None Reported Past Surgical History: Cholecystectomy, Tonsillectomy Additional Past Surgical History / Comment(s): neck SX REMOVED BENIGN MASS OUT, RT BREAST BX-BENIGN, LASER EYE SX THINKS ON HER RT EYE. Past Anesthesia/Blood Transfusion Reactions: No Reported Reaction Past Psychological History: No Psychological Hx Reported Smoking Status: Never smoker Past Alcohol Use History: None Reported Past Drug Use History: None Reported - Past Family History Father Family Medical History: Hypertension, Myocardial Infarction ([place]) Additional Family Medical History / Comment(s): X3 [place], Mother Family Medical History: Cancer Additional Family Medical History / Comment(s): DIES FROM COLON CA Medications and Allergies Home Medications Medication Instructions Recorded Confirmed Type Carvedilol [Coreg*] 12.5 mg PO DAILY@0800 10/02/19 11/20/19 History Levothyroxine Sodium 100 mcg PO DAILY@0600 10/02/19 11/20/19 History Losartan [Cozaar] 50 mg PO DAILY@0800 10/02/19 11/20/19 History Acetaminophen [Tylenol] 650 mg PO Q4H PRN 10/18/19 11/20/19 History Aspirin EC [Ecotrin] 325 mg PO DAILY@1700 10/18/19 11/20/19 History Bisacodyl [Dulcolax] 10 mg RECTAL DAILY PRN 10/18/19 11/20/19 History INSULIN ASPART (NovoLOG) [NovoLOG 5 unit SQ AC-TID 10/18/19 11/20/19 History (formulary)] Magnesium Hydroxide [Milk of 7,200 mg PO DAILY PRN 10/18/19 11/20/19 History Magnesia Concentrate] Na Phos,M-B/Na Phos,Di-Ba [Fleet 133 ml RECTAL DAILY PRN 10/18/19 11/20/19 History Adult] amLODIPine [Norvasc] 10 mg PO DAILY@0800 10/18/19 11/20/19 History Insulin Detemir (Levemir) [Levemir] 15 unit SQ DAILY@0700 11/08/19 11/20/19 History Collagenase [Santyl] 1 applic TOPICAL DAILY 11/20/19 11/20/19 History Glucerna Shake 120 ml PO TID@0800,1200,1700 11/20/19 11/20/19 History Lidocaine 5% Oint [Xylocaine 5% 1 applic TOPICAL DAILY PRN 11/20/19 11/20/19 History Oint] Liquical 30 ml PO BID@0800,1700 11/20/19 11/20/19 History Allergies Allergy/AdvReac Type Severity Reaction Status Date / Time Penicillins Allergy Rash/Hives Verified 11/20/19 12:09 Physical Exam Vitals: Vital Signs Temp Pulse Pulse Resp BP Pulse Ox 11/25/19 11:28 68 11/25/19 11:18 64 11/25/19 07:45 97.9 F 62 18 116/55 96 11/25/19 07:34 72 11/25/19 07:27 68 11/25/19 03:42 68 16 154/70 94 L 11/24/19 23:00 98 F 66 18 148/55 97 11/24/19 20:00 98.6 F 139/59 94 L 11/24/19 16:24 98 F 65 16 106/58 95 11/24/19 13:51 98 F 62 16 115/46 95 Intake and Output 11/24/19 11/25/19 11/25/19 22:59 06:59 14:59 Intake Total 30 Output Total 200 900 Balance -200 -900 30 Intake: Oral 30 Output: Urine 200 900 Other: Weight 111 kg Results - Lab Results Most recent lab results Calcium 9.0 mg/dL (8.4-10.2) 11/24/19 10:59 11/25/19 11:31 11/24/19 10:59 Assessment and Plan Plan: Assessment: 1. Acute kidney injury mostly prerenal secondary to cardiorenal syndrome. Creatinine 1.33 today. 2. Acute on chronic diastolic CHF. 3. Volume overload. Improved with diuresis. 4. Benign hypertension. Currently controlled. 5. Right lower lobe pneumonia maintained on antibiotics. Infectious disease following. 6. Insulin-dependent diabetes mellitus. 7. Chronic kidney disease stage III with baseline creatinine in the range of 1- 1.1. Etiology is nephrosclerosis. 8. Anemia of chronic kidney disease. Rule out iron deficiency. Plan: Hold tonight's dose of Lasix. Check urinalysis. Check iron studies. Hold antihypertensives for systolic blood pressure less than 120. Avoid nephrotoxins. Repeat electrolytes in the morning. Thank you for the consultation. I will continue to follow the patient with you during her hospital stay.
--- NOTE | 2019-11-25 12:52 | P.PN ---
Subjective Progress Note Date: 11/25/19 Principal diagnosis: Bilateral pneumonia Acute exacerbation of CHF likely acute on chronic diastolic heart failure Acute hypoxic respirator failure due to multifactorial processes Type 2 diabetes Morbid obesity 11/25/2019, patient seen eval examined during the rounds, renal service has been following the patient as well, hemoglobin remained stable, she is afebrile hemodynamic status stable saturation is 96% on 3 L nasal cannula last chest x- ray performed on 23 of November shows improving right lower lobe infiltrate and stable pleural effusion on the left side 11/24/2019, patient seen eval examined during the rounds, oxygen have been lowered down to 3 L, saturation 95% narrowing status stable, ongoing with breathing treatments along with broad-spectrum antibiotics and Lasix have been 40 IV every 12 however. BUNs creatinine, Going up as well as to come down 11/23/2019, patient seen eval reexamined during the rounds labs reviewed medications reviewed, patient remains on 4 L oxygen saturation is 95%, hemodynamically stable, last chest x-ray continued to show similar, she remains on broad-spectrum antibiotic with cefepime tolerating well will continue to titrate oxygen down as tolerated Current vent pulmonary edema pneumonia small bilateral pleural effusion 11/22/2019, patient seen eval examined during the rounds he remains afebrile hemodynamically stable, blood pressure is stable oxygen saturation 95% on 4 L nasal cannula last x-ray performed on , revealed bilateral infiltrate with a right more than left cardiomegaly interstitial edema small pleural effusion noted findings are consistent with pulmonary edema and CHF," is down to 5.3, renal functions are stable, patient has been eval by cardiovascular services, patient presumed to have a diastolic heart failure based on echo performed 2013 however recent echocardiogram is pending This is a 79-year-old obese female who has multiple complex problems she has been not feeling well for the last few days increase in shortness of breath cough and sputum production due to respiratory issues and she is breathing difficulty she came into the hospital she was hypoxic on arrival slightly elevated blood pressure chest x-ray admission on to have a bilateral pneumonia, her previous history significant for hypertension hypertensive cardiovascular disease hypothyroidism poorly controlled diabetes mellitus, she is nonsmoker, currently she is on 4 L oxygen breathing comfortably still have ongoing short ness of breath cough congestion is last patient on broad-spectrum antibiotics, and I will patient was noted to have a lactic acid elevated BNP as high as well with the mild elevation of potassium, her covid 19 test is negative Objective - Vital Signs Vital signs: Vital Signs Temp 97.9 F 11/25/19 07:45 Pulse 68 11/25/19 11:28 Resp 18 11/25/19 07:45 BP 116/55 11/25/19 07:45 Pulse Ox 96 11/25/19 07:45 Intake & Output 11/24/19 11/25/19 11/25/19 18:59 06:59 18:59 Intake Total 220 30 Output Total 750 1100 Balance -530 -1100 30 Weight 111 kg Intake: IV 100 Cefepime 2 gm In Sodium 100 Chloride 0.9% 100 ml @ 200 mls/hr IVPB Q12H [facility] Rx#:[id number] Oral 120 30 Output: Urine 750 1100 Other: Voiding Method Bedside Commode - Exam - Constitutional General appearance: disheveled, morbidly obese - EENT Eyes: EOMI, PERRLA Ears: bilateral: normal - Neck Neck: normal ROM Carotids: bilateral: upstroke normal, bruit absent Thyroid: bilateral: normal size - Respiratory Respiratory: bilateral: diminished, rales - Cardiovascular Rhythm: regular Heart sounds: normal: S1, S2 - Gastrointestinal General gastrointestinal: splenomegaly - Integumentary Integumentary: normal turgor - Neurologic Neurologic: CNII-XII intact - Musculoskeletal Musculoskeletal: generalized weakness, strength equal bilaterally - Psychiatric Psychiatric: A&O x's 3, appropriate affect, intact judgment & insight - Labs CBC & Chem 7: 11/25/19 11:31 11/24/19 10:59 Labs: Abnormal Lab Results - Last 24 Hours (Table) 11/24/19 11/24/19 11/25/19 Range/Units 16:30 21:14 06:17 RBC (3.80-5.40) m/uL Hgb (11.4-16.0) gm/dL Hct (34.0-46.0) % MCHC (31.0-37.0) g/dL RDW (11.5-15.5) % Lymphocytes # (1.0-4.8) k/uL POC Glucose (mg/dL) 140 H 111 H 131 H (75-99) mg/dL 11/25/19 11/25/19 Range/Units 11:31 11:57 RBC 3.21 L (3.80-5.40) m/uL Hgb 8.4 L (11.4-16.0) gm/dL Hct 28.4 L (34.0-46.0) % MCHC 29.8 L (31.0-37.0) g/dL RDW 16.0 H (11.5-15.5) % Lymphocytes # 0.8 L (1.0-4.8) k/uL POC Glucose (mg/dL) 121 H (75-99) mg/dL Microbiology - Last 24 Hours (Table) 11/20/19 06:05 Blood Culture - Preliminary Blood No Growth after 120 hours Assessment and Plan Assessment: Bilateral pneumonia, major infiltrate appears to present to the records right side however small left-sided effusion is present Acute exacerbation of CHF likely acute on chronic diastolic heart failure Acute hypoxic respirator failure due to multifactorial processes Bilateral pleural effusion Type 2 diabetes Morbid obesity Plan: Broad-spectrum antibiotics Deep breathing exercise incentive spirometry Supplemental oxygen, continued to titrated down as tolerated Breathing treatment Continue home medications Gentle diuresis, monitor labs closely Follow up on echocardiogram ejection fraction is 55% no evidence of pulmonary hypertension DVT prophylaxis Increase activity as tolerated Further plan of care as per clinical response of the patient Time with Patient: Greater than 30
--- NOTE | 2019-11-25 14:21 | P.PN ---
Subjective Progress Note Date: 11/25/19 This is a 79-year-old female patient who currently resides at [facility], undergoing wound care there for a right heel ulcer. She has a history of hypertension, diabetes, chronic diastolic congestive heart failure, came to the emergency room with symptoms of progressively worsening shortness of breath with associated cough. Currently receiving treatment for pneumonia with mild exacerbation of congestive heart failure. The patient overall has been putting out good urine. Her weight is down 1 kg today. Blood pressure 150/80 with a heart rate in the 70s. 98% on 4 L of oxygen. Sodium 139, potassium 5.3, BUN 21 and creatinine 1.0. 11/25/2019 Patient was seen and examined this morning, sitting up at her bedside. Breathing has improved, she's been having good urine output. Hemodynamically she stable. Echocardiogram with Doppler study revealed a preserved left ventricular systolic function Objective - Vital Signs Vital signs: Vital Signs Temp 97.9 F 11/25/19 07:45 Pulse 68 11/25/19 11:28 Resp 18 11/25/19 07:45 BP 116/55 11/25/19 07:45 Pulse Ox 96 11/25/19 07:45 Intake & Output 11/24/19 11/25/19 11/25/19 18:59 06:59 18:59 Intake Total 220 148 Output Total 750 1100 Balance -530 -1100 148 Weight 111 kg Intake: IV 100 Cefepime 2 gm In Sodium 100 Chloride 0.9% 100 ml @ 200 mls/hr IVPB Q12H [facility] Rx#:[id number] Oral 120 148 Output: Urine 750 1100 Other: Voiding Method Bedside Commode - Exam PHYSICAL EXAMINATION: HEENT: Head is atraumatic, normocephalic. Pupils equal, round. Neck is supple. There is no elevated jugular venous pressure. HEART EXAMINATION: Heart sounds regular, S1 and S2 with a systolic murmur at the base. CHEST EXAMINATION: Lungs reveal diminished air entry bilaterally with crackles to bilateral lower lobes. No chest wall tenderness is noted on palpation or with deep breathing. ABDOMEN: Soft, obese, nontender. Bowel sounds are heard. No organomegaly noted. EXTREMITIES: Diminished peripheral pulses with evidence of 1+ peripheral edema and no calf tenderness noted. Dressing noted to right foot.. NEUROLOGIC patient is awake, alert and oriented x3. . - Labs CBC & Chem 7: 11/25/19 11:31 11/25/19 11:31 Labs: Abnormal Lab Results - Last 24 Hours (Table) 11/24/19 11/24/19 11/25/19 Range/Units 16:30 21:14 06:17 RBC (3.80-5.40) m/uL Hgb (11.4-16.0) gm/dL Hct (34.0-46.0) % MCHC (31.0-37.0) g/dL RDW (11.5-15.5) % Lymphocytes # (1.0-4.8) k/uL Carbon Dioxide (22-30) mmol/L BUN (7-17) mg/dL Creatinine (0.52-1.04) mg/dL Glucose (74-99) mg/dL POC Glucose (mg/dL) 140 H 111 H 131 H (75-99) mg/dL Alkaline Phosphatase (38-126) U/L Total Protein (6.3-8.2) g/dL Albumin (3.5-5.0) g/dL 11/25/19 11/25/19 11/25/19 Range/Units 11:31 11:31 11:57 RBC 3.21 L (3.80-5.40) m/uL Hgb 8.4 L (11.4-16.0) gm/dL Hct 28.4 L (34.0-46.0) % MCHC 29.8 L (31.0-37.0) g/dL RDW 16.0 H (11.5-15.5) % Lymphocytes # 0.8 L (1.0-4.8) k/uL Carbon Dioxide 36 H (22-30) mmol/L BUN 41 H (7-17) mg/dL Creatinine 1.37 H (0.52-1.04) mg/dL Glucose 108 H (74-99) mg/dL POC Glucose (mg/dL) 121 H (75-99) mg/dL Alkaline Phosphatase 141 H (38-126) U/L Total Protein 5.9 L (6.3-8.2) g/dL Albumin 2.8 L (3.5-5.0) g/dL Microbiology - Last 24 Hours (Table) 11/20/19 06:05 Blood Culture - Preliminary Blood No Growth after 120 hours Assessment and Plan Plan: Assessment: #1 symptoms of shortness of breath likely secondary to combination of predominantly pneumonia with some underlying heart failure, diastolic in nature. Current echo revealed a normal left ventricular systolic function. #2 bilateral lower lobe pneumonia #3 anemia #4 nonhealing ulcer to the right heel #5 diabetes #6 hypertension #7 recent admission for acute kidney injury #8 hypothyroidism Plan From cardiology's perspective we would recommend to continue this patient on current medications. We will follow along with you now on an as-needed basis only, please don't hesitate to call with any questions. . DNP note has been reviewed, I agree with a documented findings and plan of care. Patient was seen and examined.
[2019-11-25 16:25] LABS: Glucose,Whole Blood 118 mg/dL (75-99)
[2019-11-25 16:45] LABS: Appearance,Urine Clear (Clear); Bilirubin,Urine Negative (Negative); Blood,Urine Negative (Negative); Color,Urine Light Yellow; Glucose,Urine (UA) Negative (Negative); Ketones,Urine Negative (Negative); Leukocyte Esterase,Urine Negative (Negative); Nitrite,Urine Negative (Negative); Protein,Urine Trace (Negative); Specific Gravity,Urine 1.009 (1.001-1.035); Urobilinogen,Urine <2.0 mg/dL (<2.0)
[2019-11-25] MEDS: ASPIRIN 81 MG PO SCH (17:30)
--- NOTE | 2019-11-25 18:34 | PN ---
PROGRESS NOTE CHIEF COMPLAINT: Pneumonitis, congestive heart failure, failure to thrive, decubitus to the right heel. HISTORY OF PRESENT ILLNESS: This lady seems to be doing a little bit better and is little bit more alert each day. She had quite a bit of discomfort with debridement of the heel last night, but is doing well today. If she continues to improve, she can probably go back to the long-term tomorrow. PHYSICAL EXAMINATION: She is a little bit more alert and communicative than usual. Chest demonstrates scattered rales and decreased breath sounds on both bases. Cardiac exam is normal. The abdomen is soft and nontender. Extremities are unchanged. IMPRESSION: 1. Bronchial pneumonia, bilateral. 2. Congestive heart failure. 3. Decubitus of the right heel. 4. General debility and failure to thrive. PLAN: Probably back to the long-term tomorrow. MMIRVINL / HEAVENLYN: [id number] /
[2019-11-25 20:10] LABS: Ferritin 44.6 ng/mL (10.0-291.0)
[2019-11-25 20:16] LABS: % Iron Saturation 12.36 (12.00-45.00)
[2019-11-25] MEDS: ACETAMINOPHEN TAB 325 MG TAB PO PRN (20:38)
[2019-11-25] MEDS: SODIUM CHLORIDE 0.9% 1,000 ML IV SCH (20:39)
--- NOTE | 2019-11-25 22:54 | PN ---
PROGRESS NOTE DATE OF SERVICE: 11/25/2019 REASON FOR FOLLOWUP: Pneumonia. INTERVAL HISTORY: The patient is currently afebrile. She is breathing comfortably. Denies having any chest pain or shortness of breath. Cough has decreased in intensity. No nausea, no vomiting, no abdominal pain, no diarrhea. PHYSICAL EXAMINATION: Blood pressure 154/67 with a pulse of 62, temperature 98.5. She is 97% on 3 L nasal cannula. General description is an elderly female lying in bed in no distress. RESPIRATORY SYSTEM: Unlabored breathing. Clear to auscultation anteriorly. HEART: S1, S2. Regular rate and rhythm. ABDOMEN: Soft. No tenderness. LABS: Hemoglobin 8.4, white count of 5.9, BUN of 41, creatinine 1.37. DIAGNOSTIC IMPRESSION AND PLAN: Patient with pneumonia, possibly Gram-negative. Overall clinical improvement on cefepime; to finish therapy with oral Avelox when stable for discharge and continue supportive care. MMODL / IJN: [id number] /
[2019-11-26] MEDS: ACETAMINOPHEN TAB 325 MG TAB PO PRN (03:25)
[2019-11-26] MEDS: LEVOTHYROXINE 100 MCG TAB PO SCH (06:23)
[2019-11-26] MEDS: INSULIN ASPART (NovoLOG) 100 UNIT/ML VIAL SQ SCH ×2 (07:36→12:13)
[2019-11-26] MEDS: LOSARTAN 25 MG TAB PO SCH (07:37)
[2019-11-26] MEDS: amLODIPine 10 MG TAB PO SCH (07:37)
[2019-11-26] MEDS: INSULIN DETEMIR (LEVEMIR) 100 UNIT/ML SYR SQ SCH (07:37)
[2019-11-26] MEDS: CARVEDILOL 12.5 MG TAB PO SCH (07:37)
[2019-11-26 07:39] LABS: Glucose,Whole Blood 174 mg/dL (75-99)
[2019-11-26] MEDS: IPRATROPIUM-ALBUTEROL 3 ML NEB INHALATION SCH ×3 (07:41→16:30)
[2019-11-26] MEDS ORDERED: ENOXAPARIN 30 MG/0.3 ML SYRINGE SQ SCH (09:00)
[2019-11-26 09:07] LABS: Calcium 8.8 mg/dL (8.4-10.2); Potassium 4.3 mmol/L (3.5-5.1)
[2019-11-26] MEDS: CEFEPIME 2 GM in SODIUM CHLORIDE 0.9% 100 ML IVPB SCH (09:42)
--- NOTE | 2019-11-26 11:23 | P.PN ---
Subjective Patient is seen in follow for acute kidney injury. Renal function is fairly stable. Creatinine 1.4 today. Oral intake is good. No vomiting or diarrhea. Good urine output. Vital signs are stable. General: The patient appeared well nourished and normally developed. HEENT: Head exam is unremarkable. Neck is without jugular venous distension. LUNGS: Lungs are clear to auscultation and percussion. Breath sounds decreased. HEART: Rate and Rhythm are regular. ABDOMEN: Nontender, nondistended. EXTREMITITES: No clubbing, cyanosis, or edema. Objective - Vital Signs Vital signs: Vital Signs Temp 98.0 F 11/26/19 07:00 Pulse 70 11/26/19 07:00 Resp 17 11/26/19 07:00 BP 129/66 11/26/19 07:00 Pulse Ox 96 11/26/19 07:00 Intake & Output 11/25/19 11/26/19 11/26/19 18:59 06:59 18:59 Intake Total 1148 500 Output Total 1000 Balance 148 500 Intake: Intake, IV Titration 100 100 Amount Cefepime 2 gm In Sodium 100 100 Chloride 0.9% 100 ml @ 200 mls/hr IVPB Q12H [facility] Rx#:[id number] Oral 1048 400 Output: Urine 1000 Other: Voiding Method Bedside Commode Bedside Commode # Voids 1 - Labs CBC & Chem 7: 11/25/19 11:31 11/26/19 07:58 Labs: Abnormal Lab Results - Last 24 Hours (Table) 11/25/19 11/25/19 11/25/19 Range/Units 11:31 11:31 11:31 RBC 3.21 L (3.80-5.40) m/uL Hgb 8.4 L (11.4-16.0) gm/dL Hct 28.4 L (34.0-46.0) % MCHC 29.8 L (31.0-37.0) g/dL RDW 16.0 H (11.5-15.5) % Lymphocytes # 0.8 L (1.0-4.8) k/uL Carbon Dioxide 36 H (22-30) mmol/L BUN 41 H (7-17) mg/dL Creatinine 1.37 H (0.52-1.04) mg/dL Glucose 108 H (74-99) mg/dL POC Glucose (mg/dL) (75-99) mg/dL Iron 34 L (50-170) ug/dL Alkaline Phosphatase 141 H (38-126) U/L Total Protein 5.9 L (6.3-8.2) g/dL Albumin 2.8 L (3.5-5.0) g/dL Urine Protein (Negative) 11/25/19 11/25/19 11/25/19 Range/Units 11:57 16:00 16:24 RBC (3.80-5.40) m/uL Hgb (11.4-16.0) gm/dL Hct (34.0-46.0) % MCHC (31.0-37.0) g/dL RDW (11.5-15.5) % Lymphocytes # (1.0-4.8) k/uL Carbon Dioxide (22-30) mmol/L BUN (7-17) mg/dL Creatinine (0.52-1.04) mg/dL Glucose (74-99) mg/dL POC Glucose (mg/dL) 121 H 118 H (75-99) mg/dL Iron (50-170) ug/dL Alkaline Phosphatase (38-126) U/L Total Protein (6.3-8.2) g/dL Albumin (3.5-5.0) g/dL Urine Protein Trace H (Negative) 11/26/19 11/26/19 Range/Units 07:38 07:58 RBC (3.80-5.40) m/uL Hgb (11.4-16.0) gm/dL Hct (34.0-46.0) % MCHC (31.0-37.0) g/dL RDW (11.5-15.5) % Lymphocytes # (1.0-4.8) k/uL Carbon Dioxide 31 H (22-30) mmol/L BUN 45 H (7-17) mg/dL Creatinine 1.41 H (0.52-1.04) mg/dL Glucose 149 H (74-99) mg/dL POC Glucose (mg/dL) 174 H (75-99) mg/dL Iron (50-170) ug/dL Alkaline Phosphatase (38-126) U/L Total Protein (6.3-8.2) g/dL Albumin (3.5-5.0) g/dL Urine Protein (Negative) Microbiology - Last 24 Hours (Table) 11/20/19 06:05 Blood Culture - Final Blood No Growth after 144 hours Assessment and Plan Plan: Assessment: 1. Acute kidney injury mostly prerenal secondary to cardiorenal syndrome. Creatinine 1.41 today. UA quite benign. 2. Acute on chronic diastolic CHF. 3. Volume overload. Improved with diuresis. 4. Benign hypertension. Currently controlled. 5. Right lower lobe pneumonia maintained on antibiotics. Infectious disease following. 6. Insulin-dependent diabetes mellitus. 7. Chronic kidney disease stage III with baseline creatinine in the range of 1-1.1. Etiology is nephrosclerosis. 8. Anemia of chronic kidney disease. Iron deficiency noted. Plan: Resume Lasix 40 mg orally once daily upon discharge. Hold antihypertensives for systolic blood pressure less than 120. Avoid nephrotoxins. IV iron today and tomorrow. Repeat electrolytes in the morning.
[2019-11-26 11:50] LABS: Glucose,Whole Blood 100 mg/dL (75-99)
[2019-11-26] MEDS ORDERED: SODIUM FERRIC GLUCONAT-SUCROSE 125 MG in SODIUM CHLORIDE 0.9% 100 ML IVPB SCH (12:30)
--- NOTE | 2019-11-26 13:05 | DS ---
DISCHARGE SUMMARY CHIEF COMPLAINT: Shortness of breath, bilateral lower lobe bronchial pneumonia and congestive heart failure. HISTORY OF PRESENT ILLNESS AND PHYSICAL EXAM: Details of this lady's history and physical can be found in the initial workup. COURSE IN THE HOSPITAL: After admission she was placed on bedrest started intravenous fluids and placed on IV antibiotics and updrafts. She was followed by Infectious Disease. She was also found to have an element of congestive heart failure and she was treated as well. She was seen by Nephrology for her renal failure. While in the hospital she received wound care and debridement to the right heel decubitus. She was doing well, vital signs were normal and she was no longer short of breath. She was eating and it was felt that she could safely be returned to the [facility]. She will go there on a regular diet, physical therapy and activity as tolerated. She will follow up with the [facility] in a weak. FINAL DIAGNOSES: 1. Acute bilateral lower lobe bronchial pneumonia. 2. Acute congestive heart failure. 3. Chronic congestive heart failure (diastolic). 4. Renal failure (stage III). 5. Stage IV decubitus on right heel. 6. General debility and failure to thrive. 7. Hypothyroidism. OPERATIONS: None. CONSULTATIONS: Infectious disease, Nephrology and Wound Care. She is improved. MMODL / IJN: [id number] /
--- NOTE | 2019-11-26 13:56 | PN ---
PROGRESS NOTE DATE OF SERVICE: 11/26/2019 REASON FOR FOLLOWUP: Pneumonia. INTERVAL HISTORY: The patient is currently afebrile. Patient is breathing comfortably. Denies having any chest pain or shortness of breath. Occasional cough that has improved. No abdominal pain or diarrhea. No pain to the right heel area. PHYSICAL EXAMINATION: Blood pressure 129/66, pulse of 70, temperature 98. She is 96% on 2 L nasal cannula. General description is an elderly female up in the chair in no distress. Respiratory system: Unlabored breathing, decreased breath sounds at bases. No wheeze. HEART: S1, S2. Regular rate and rhythm. Abdomen soft, no tenderness. Right leg is currently dressed up. LABS: BUN of 45, creatinine is 1.41. Blood culture has been negative. DIAGNOSTIC IMPRESSION AND PLAN: 1. Patient admitted to the hospital with shortness of breath, multifactorial with component of pneumonia. Overall clinical improvement with Zosyn, to finish therapy with a short course of oral Avelox. 2. Right heel wound. Local wound care with Santyl followed by moist dressing. Keep the area off pressure. MMODL / IJN: [id number] /
[2019-11-26 14:49] VITALS: BP 109/68; PULSE 63; RESP 18; TEMP 97.7
--- NOTE | 2019-11-26 15:08 | P.PN ---
Subjective Progress Note Date: 11/26/19 Principal diagnosis: Bilateral pneumonia Acute exacerbation of CHF likely acute on chronic diastolic heart failure Acute hypoxic respirator failure due to multifactorial processes Type 2 diabetes Morbid obesity 11/26/2019, patient seen eval examined sitting upright in the chair breathing comfortably denies any chest pain remains afebrile with stable hemodynamics oxygen has been 3 L saturation is 98%, renal functions remain stable, patient is being evaluated for possible discharge to ECF 11/25/2019, patient seen eval examined during the rounds, renal service has been following the patient as well, hemoglobin remained stable, she is afebrile hemodynamic status stable saturation is 96% on 3 L nasal cannula last chest x- ray performed on 23 of November shows improving right lower lobe infiltrate and stable pleural effusion on the left side 11/24/2019, patient seen eval examined during the rounds, oxygen have been lowered down to 3 L, saturation 95% narrowing status stable, ongoing with breathing treatments along with broad-spectrum antibiotics and Lasix have been 4 0 IV every 12 however. BUNs creatinine, Going up as well as to come down 11/23/2019, patient seen eval reexamined during the rounds labs reviewed medications reviewed, patient remains on 4 L oxygen saturation is 95%, hemodynamically stable, last chest x-ray continued to show similar, she remains on broad-spectrum antibiotic with cefepime tolerating well will continue to titrate oxygen down as tolerated Current vent pulmonary edema pneumonia small bilateral pleural effusion 11/22/2019, patient seen eval examined during the rounds he remains afebrile hemodynamically stable, blood pressure is stable oxygen saturation 95% on 4 L nasal cannula last x-ray performed on , revealed bilateral infiltrate with a right more than left cardiomegaly interstitial edema small pleural effusion noted findings are consistent with pulmonary edema and CHF," is down to 5.3, renal functions are stable, patient has been eval by cardiovascular services, patient presumed to have a diastolic heart failure based on echo performed 2013 however recent echocardiogram is pending This is a 79-year-old obese female who has multiple complex problems she has been not feeling well for the last few days increase in shortness of breath cough and sputum production due to respiratory issues and she is breathing diffi culty she came into the hospital she was hypoxic on arrival slightly elevated blood pressure chest x-ray admission on to have a bilateral pneumonia, her previous history significant for hypertension hypertensive cardiovascular disease hypothyroidism poorly controlled diabetes mellitus, she is nonsmoker, currently she is on 4 L oxygen breathing comfortably still have ongoing shortness of breath cough congestion is last patient on broad-spectrum antibiotics, and I will patient was noted to have a lactic acid elevated BNP as high as well with the mild elevation of potassium, her covid 19 test is negative Objective - Vital Signs Vital signs: Vital Signs Temp 97.7 F 11/26/19 14:48 Pulse 63 11/26/19 14:48 Resp 18 11/26/19 14:48 BP 109/68 11/26/19 14:48 Pulse Ox 98 11/26/19 14:48 Intake & Output 11/25/19 11/26/19 11/26/19 18:59 06:59 18:59 Intake Total 1148 500 Output Total 1000 425 Balance 148 500 -425 Intake: Intake, IV Titration 100 100 Amount Cefepime 2 gm In Sodium 100 100 Chloride 0.9% 100 ml @ 200 mls/hr IVPB Q12H [facility] Rx#:[id number] Oral 1048 400 Output: Urine 1000 425 Other: Voiding Method Bedside Commode Bedside Commode # Voids 1 # Bowel Movements 1 - Exam - Constitutional General appearance: disheveled, morbidly obese - EENT Eyes: EOMI, PERRLA Ears: bilateral: normal - Neck Neck: normal ROM Carotids: bilateral: upstroke normal, bruit absent Thyroid: bilateral: normal size - Respiratory Respiratory: bilateral: diminished, rales - Cardiovascular Rhythm: regular Heart sounds: normal: S1, S2 - Gastrointestinal General gastrointestinal: splenomegaly - Integumentary Integumentary: normal turgor - Neurologic Neurologic: CNII-XII intact - Musculoskeletal Musculoskeletal: generalized weakness, strength equal bilaterally - Psychiatric Psychiatric: A&O x's 3, appropriate affect, intact judgment & insight - Labs CBC & Chem 7: 11/25/19 11:31 11/26/19 07:58 Labs: Abnormal Lab Results - Last 24 Hours (Table) 11/25/19 11/25/19 11/25/19 Range/Units 11:31 16:00 16:24 Carbon Dioxide (22-30) mmol/L BUN (7-17) mg/dL Creatinine (0.52-1.04) mg/dL Glucose (74-99) mg/dL POC Glucose (mg/dL) 118 H (75-99) mg/dL Iron 34 L (50-170) ug/dL Urine Protein Trace H (Negative) 11/26/19 11/26/19 11/26/19 Range/Units 07:38 07:58 11:49 Carbon Dioxide 31 H (22-30) mmol/L BUN 45 H (7-17) mg/dL Creatinine 1.41 H (0.52-1.04) mg/dL Glucose 149 H (74-99) mg/dL POC Glucose (mg/dL) 174 H 100 H (75-99) mg/dL Iron (50-170) ug/dL Urine Protein (Negative) Microbiology - Last 24 Hours (Table) 11/25/19 11:31 Blood Culture - Preliminary Blood No Growth after 24 hours 11/20/19 06:05 Blood Culture - Final Blood No Growth after 144 hours Assessment and Plan Assessment: Bilateral pneumonia, major infiltrate appears to present to the records right side however small left-sided effusion is present Acute exacerbation of CHF likely acute on chronic diastolic heart failure Acute hypoxic respirator failure due to multifactorial processes Bilateral pleural effusion Type 2 diabetes Morbid obesity Plan: Broad-spectrum antibiotics Ammann can be changed to oral at the time at this Deep breathing exercise incentive spirometry Supplemental oxygen, continued to titrated down as tolerated Breathing treatment Continue home medications Gentle diuresis, monitor labs closely Follow up on echocardiogram ejection fraction is 55% no evidence of pulmonary hypertension DVT prophylaxis Increase activity as tolerated Further plan of care as per clinical response of the patient Time with Patient: Greater than 30
[2019-11-27] MEDS ORDERED: FUROSEMIDE 40 MG TAB PO SCH (09:00)
== END 2019-11-26 16:15 | DRG 177 ==
LOC: EC 04:24 → 3SCARD 05:46 → 4SSUR 11-25 18:26
PROVIDERS: ADMIT Family Medicine; ATTEND Family Medicine
DX: J15.6 Pneumonia due to other Gram-negative bacteria (principal); I50.33 Acute on chronic diastolic (congestive) heart failure; L89.614 Pressure ulcer of right heel, stage 4; J96.01 Acute respiratory failure with hypoxia; I13.0 Hypertensive heart and chronic kidney disease with heart failure and stage 1 through stage 4 chronic kidney disease, or unspecified chronic kidney disease; J44.0 Chronic obstructive pulmonary disease with (acute) lower respiratory infection; N17.9 Acute kidney failure, unspecified; Z68.41 Body mass index [BMI] 40.0-44.9, adult; D63.1 Anemia in chronic kidney disease; L89.322 Pressure ulcer of left buttock, stage 2; R62.7 Adult failure to thrive; E11.22 Type 2 diabetes mellitus with diabetic chronic kidney disease; E11.621 Type 2 diabetes mellitus with foot ulcer; N18.3 Chronic kidney disease, stage 3 (moderate); Z20.828 Contact with and (suspected) exposure to other viral communicable diseases; D50.0 Iron deficiency anemia secondary to blood loss (chronic); E03.9 Hypothyroidism, unspecified; E66.01 Morbid (severe) obesity due to excess calories; E78.5 Hyperlipidemia, unspecified; M81.0 Age-related osteoporosis without current pathological fracture; E87.5 Hyperkalemia; K58.9 Irritable bowel syndrome, unspecified; R29.6 Repeated falls; R60.9 Edema, unspecified; M19.90 Unspecified osteoarthritis, unspecified site; K44.9 Diaphragmatic hernia without obstruction or gangrene; R20.8 Other disturbances of skin sensation; Z79.4 Long term (current) use of insulin; Z79.82 Long term (current) use of aspirin; Z79.890 Hormone replacement therapy; Z79.899 Other long term (current) drug therapy; Z88.0 Allergy status to penicillin; Z90.49 Acquired absence of other specified parts of digestive tract; Z87.01 Personal history of pneumonia (recurrent); Z80.0 Family history of malignant neoplasm of digestive organs; Z82.49 Family history of ischemic heart disease and other diseases of the circulatory system
CPT/HCPCS: 36415; 71045; 80048; 80053; 81003; 82728; 83540; 83550; 83605; 83735; 83880; 84145; 84484; 85025; 85610; 85730; 86140; 87040; 87635; 93005; 93306; 94640; 94760; 96361; 96365; 96375; 99285

== ENCOUNTER 2019-12-05 09:11 | Inpatient (IN) | payer MEDICARE ==
[2019-12-05] MEDS ORDERED: FUROSEMIDE 10 MG/ML 4 ML VIAL IV STA ×2 (09:29→10:33)
--- NOTE | 2019-12-05 09:33 | ED ---
General Adult HPI - General Source: EMS, RN notes reviewed, old records reviewed Mode of arrival: EMS Limitations: physical limitation <Kim Leal - Last Filed: 12/05/19 11:39> <Pia Barragan - Last Filed: 12/07/19 02:00> - General Chief complaint: Shortness of Breath Stated complaint: SOB Time Seen by Provider: 12/05/19 09:17 - History of Present Illness Initial comments: Patient is a 79-year-old female with history of CHF COPD, and recent pneumonia. She presents emergency Department today with complaints of worsening shortness of breath and a 7 pound weight gain over the past week. Patient reportedly had Poor kidney function. Patient denies any localized chest pain history. Denies any significant cough. She denies any pain. She states normal bowel habits. She does complain of an ulceration wound over her right foot that is being treated. (Kim Leal) - Related Data Home Medications Medication Instructions Recorded Confirmed Carvedilol [Coreg*] 12.5 mg PO DAILY@0800 10/02/19 12/05/19 Levothyroxine Sodium 100 mcg PO DAILY@0600 10/02/19 12/05/19 Losartan [Cozaar] 50 mg PO DAILY@0800 10/02/19 12/05/19 Acetaminophen [Tylenol] 650 mg PO Q4H PRN 10/18/19 12/05/19 Aspirin EC [Ecotrin] 325 mg PO DAILY@1700 10/18/19 12/05/19 Bisacodyl [Dulcolax] 10 mg RECTAL DAILY PRN 10/18/19 12/05/19 INSULIN ASPART (NovoLOG) [NovoLOG 5 unit SQ AC-TID 10/18/19 12/05/19 (formulary)] Magnesium Hydroxide [Milk of 7,200 mg PO DAILY PRN 10/18/19 12/05/19 Magnesia Concentrate] Na Phos,M-B/Na Phos,Di-Ba [Fleet 133 ml RECTAL DAILY PRN 10/18/19 12/05/19 Adult] amLODIPine [Norvasc] 10 mg PO DAILY@0800 10/18/19 12/05/19 Insulin Detemir (Levemir) [Levemir] 15 unit SQ DAILY@0700 11/08/19 12/05/19 Collagenase [Santyl] 1 applic TOPICAL DAILY 11/20/19 12/05/19 Glucerna Shake 120 ml PO TID@0800,1200,1700 11/20/19 12/05/19 Lidocaine 5% Oint [Xylocaine 5% 1 applic TOPICAL DAILY PRN 11/20/19 12/05/19 Oint] Liquical 30 ml PO BID@0800,1700 11/20/19 12/05/19 Furosemide [Lasix] 40 mg PO DAILY@0800 12/05/19 12/05/19 Hydrocortisone Cream 1 applic TOPICAL Q6H PRN 12/05/19 12/05/19 [Hydrocortisone 2.5% Cream] hydrOXYzine HCL [Atarax] 25 mg PO Q8H PRN 12/05/19 12/05/19 Allergies Allergy/AdvReac Type Severity Reaction Status Date / Time Penicillins Allergy Rash/Hives Verified 12/05/19 12:44 Review of Systems ROS Other: All systems not noted in ROS Statement are negative. <Kim Leal - Last Filed: 12/05/19 11:39> ROS Other: All systems not noted in ROS Statement are negative. <Pia Barragan - Last Filed: 12/07/19 02:00> ROS Statement: Those systems with pertinent positive or pertinent negative responses have been documented in the HPI. Past Medical History Past Medical History: Heart Failure, COPD, Diabetes Mellitus, Hyperlipidemia, Hypertension, Osteoarthritis (OA), Pneumonia, Skin Disorder, Thyroid Disorder Additional Past Medical History / Comment(s): PUL EDEMA, HIATL HERNIA, EDEMA TO LEGS AND BREAKDOWN/BLISTERS TO MARTÍN LEGS, IBS, EDEMA TO BILAT LE'S History of Any Multi-Drug Resistant Organisms: None Reported Past Surgical History: Cholecystectomy, Tonsillectomy Additional Past Surgical History / Comment(s): neck SX REMOVED BENIGN MASS OUT, RT BREAST BX-BENIGN, LASER EYE SX THINKS ON HER RT EYE. Past Anesthesia/Blood Transfusion Reactions: No Reported Reaction Past Psychological History: No Psychological Hx Reported Smoking Status: Never smoker Past Alcohol Use History: None Reported Past Drug Use History: None Reported - Past Family History Father Family Medical History: Hypertension, Myocardial Infarction ([place]) Additional Family Medical History / Comment(s): X3 [place], Mother Family Medical History: Cancer Additional Family Medical History / Comment(s): DIES FROM COLON CA <Kim Leal - Last Filed: 12/05/19 11:39> General Exam Limitations: physical limitation General appearance: alert, in no apparent distress Head exam: Present: atraumatic, normocephalic, normal inspection Eye exam: Present: normal appearance, PERRL, EOMI. Absent: scleral icterus, conjunctival injection, periorbital swelling ENT exam: Present: normal exam, mucous membranes moist Neck exam: Present: normal inspection. Absent: tenderness, meningismus, lymphadenopathy Respiratory exam: Present: decreased breath sounds (Patient is 96% on 4 L oxygen. Patient typically wears 2 L.). Absent: normal lung sounds bilaterally, respiratory distress, wheezes, rales, rhonchi, stridor Cardiovascular Exam: Present: regular rate, normal rhythm, normal heart sounds. Absent: systolic murmur, diastolic murmur, rubs, gallop, clicks GI/Abdominal exam: Present: soft, normal bowel sounds. Absent: distended, tenderness, guarding, rebound, rigid Extremities exam: Present: normal inspection, full ROM, normal capillary refill. Absent: tenderness, pedal edema, joint swelling, calf tenderness Back exam: Present: normal inspection Neurological exam: Present: alert, oriented X3, CN II-XII intact Psychiatric exam: Present: normal affect Skin exam: Present: warm, dry, intact, normal color. Absent: rash <Kim Leal - Last Filed: 12/05/19 11:39> - General Exam Comments Initial Comments: 79-year-old female. Patient is obese, alert and oriented 3. Pleasant. (Kim Leal) Course Vital Signs 12/05/19 12/05/19 12/05/19 09:12 09:18 10:13 Temperature 97.9 F Pulse Rate 71 66 Respiratory 16 16 16 Rate Blood Pressure 141/46 O2 Sat by Pulse 99 97 Oximetry 12/05/19 11:47 Temperature Pulse Rate 68 Respiratory 16 Rate Blood Pressure 136/53 O2 Sat by Pulse 96 Oximetry Medical Decision Making - Lab Data Result diagrams: 12/05/19 09:25 12/05/19 09:25 - Radiology Data Radiology results: report reviewed <Kim Leal - Last Filed: 12/05/19 11:39> - Lab Data Result diagrams: 12/06/19 10:40 12/06/19 10:40 <Pia Barragan - Last Filed: 12/07/19 02:00> - Medical Decision Making 39-year-old female presents emergency Department from [facility] for concern for fluid overload. She crying more oxygen than usual and on 4 L of oxygen and satting 96%. Chest x-ray shows evidence of fluid overload status. Patient sta rted on Lasix nitro paste. Patient was admitted at this time consult to cardiology. Dr. Barragan discussed the case with Dr. Fleming./ (Kim Leal) I was available for consultation in the emergency department. The history and physical exam were done by the midlevel provider. I was consulted for this patients care. I reviewed the case with the midlevel provider and based on their presentation of the patient, I agree with the assessment, medical decision making and plan of care as documented. Chart was dictated using [employer] dictation software. Attempts were made to correct any dictation errors however some typographical errors may persist. Patient was seen during a national state of emergency due to the Covid-19 pandemic. (Pia Barragan) - Lab Data Lab Results 12/05/19 12/05/19 12/05/19 Range/Units 09:25 09:25 09:25 WBC 7.0 (3.8-10.6) k/uL RBC 3.41 L (3.80-5.40) m/uL Hgb 8.9 L (11.4-16.0) gm/dL Hct 29.4 L (34.0-46.0) % MCV 86.4 (80.0-100.0) fL MCH 26.2 (25.0-35.0) pg MCHC 30.3 L (31.0-37.0) g/dL RDW 16.1 H (11.5-15.5) % Plt Count 384 (150-450) k/uL Neutrophils % 69 % Lymphocytes % 11 % Monocytes % 9 % Eosinophils % 7 % Basophils % 1 % Neutrophils # 4.9 (1.3-7.7) k/uL Lymphocytes # 0.8 L (1.0-4.8) k/uL Monocytes # 0.6 (0-1.0) k/uL Eosinophils # 0.5 (0-0.7) k/uL Basophils # 0.1 (0-0.2) k/uL Hypochromasia Marked Anisocytosis Slight PT (9.0-12.0) sec INR (<1.2) APTT (22.0-30.0) sec Sodium 140 (137-145) mmol/L Potassium 5.3 H (3.5-5.1) mmol/L Chloride 107 (98-107) mmol/L Carbon Dioxide 29 (22-30) mmol/L Anion Gap 4 mmol/L BUN 43 H (7-17) mg/dL Creatinine 1.06 H (0.52-1.04) mg/dL Est GFR (CKD-EPI)AfAm 58 (>60 ml/min/1.73 sqM) Est GFR (CKD-EPI)NonAf 50 (>60 ml/min/1.73 sqM) Glucose 143 H (74-99) mg/dL Plasma Lactic Acid Yvan 1.0 (0.7-2.0) mmol/L Calcium 9.1 (8.4-10.2) mg/dL Magnesium 2.5 H (1.6-2.3) mg/dL Total Bilirubin 0.5 (0.2-1.3) mg/dL AST 19 (14-36) U/L ALT 7 (4-34) U/L Alkaline Phosphatase 132 H (38-126) U/L Troponin I (0.000-0.034) ng/mL NT-Pro-B Natriuret Pep pg/mL Total Protein 6.3 (6.3-8.2) g/dL Albumin 3.1 L (3.5-5.0) g/dL 12/05/19 12/05/19 12/05/19 Range/Units 09:25 09:25 10:54 WBC (3.8-10.6) k/uL RBC (3.80-5.40) m/uL Hgb (11.4-16.0) gm/dL Hct (34.0-46.0) % MCV (80.0-100.0) fL MCH (25.0-35.0) pg MCHC (31.0-37.0) g/dL RDW (11.5-15.5) % Plt Count (150-450) k/uL Neutrophils % % Lymphocytes % % Monocytes % % Eosinophils % % Basophils % % Neutrophils # (1.3-7.7) k/uL Lymphocytes # (1.0-4.8) k/uL Monocytes # (0-1.0) k/uL Eosinophils # (0-0.7) k/uL Basophils # (0-0.2) k/uL Hypochromasia Anisocytosis PT 10.0 (9.0-12.0) sec INR 1.0 (<1.2) APTT 21.5 L (22.0-30.0) sec Sodium (137-145) mmol/L Potassium (3.5-5.1) mmol/L Chloride (98-107) mmol/L Carbon Dioxide (22-30) mmol/L Anion Gap mmol/L BUN (7-17) mg/dL Creatinine (0.52-1.04) mg/dL Est GFR (CKD-EPI)AfAm (>60 ml/min/1.73 sqM) Est GFR (CKD-EPI)NonAf (>60 ml/min/1.73 sqM) Glucose (74-99) mg/dL Plasma Lactic Acid Yvan (0.7-2.0) mmol/L Calcium (8.4-10.2) mg/dL Magnesium (1.6-2.3) mg/dL Total Bilirubin (0.2-1.3) mg/dL AST (14-36) U/L ALT (4-34) U/L Alkaline Phosphatase (38-126) U/L Troponin I <0.012 (0.000-0.034) ng/mL NT-Pro-B Natriuret Pep 2660 pg/mL Total Protein (6.3-8.2) g/dL Albumin (3.5-5.0) g/dL 12/05/19 11:15 EKG performed at 9:28 AM shows normal sinus rhythm with voltage QRS. Borderline EKG. Ventricular rate of 70 bpm. 146 most seconds. She synagogue is 80 ms. QT QTc is 416/449 ms. (Kim Lael) - Radiology Data Chest x-ray shows fluid overload with pulmonary vascular congestion trace pleural effusions bibasilar airspace disease representing atelectasis. They have progressed from prior imaging. (Kim Leal) Disposition Is patient prescribed a controlled substance at d/c from ED?: No Time of Disposition: 11:41 <Kim Leal - Last Filed: 12/05/19 11:39> <Pia Barragan - Last Filed: 12/07/19 02:00> Clinical Impression: CHF (congestive heart failure), Acute pulmonary edema Disposition: ADMITTED IP TO THIS HOSP Condition: Serious
[2019-12-05 09:43] LABS: Anisocytosis Slight; Basophils # (A) 0.1 k/uL (0-0.2); Basophils % (A) 1 %; Eosinophils # (A) 0.5 k/uL (0-0.7); Eosinophils % (A) 7 %; HCT 29.4 % (34.0-46.0); HGB 8.9 gm/dL (11.4-16.0); Hypochromasia Marked; Lymphocytes # (A) 0.8 k/uL (1.0-4.8); Lymphocytes % (A) 11 %; MCH 26.2 pg (25.0-35.0); MCHC 30.3 g/dL (31.0-37.0); MCV 86.4 fL (80.0-100.0); Mean Platelet Volume 7.6; Monocytes # (A) 0.6 k/uL (0-1.0); Monocytes % (A) 9 %; Neutrophils # (A) 4.9 k/uL (1.3-7.7); Neutrophils % (A) 69 %; Platelet Count 384 k/uL (150-450); RBC 3.41 m/uL (3.80-5.40); RDW 16.1 % (11.5-15.5)
[2019-12-05 09:52] LABS: Albumin 3.1 g/dL (3.5-5.0); Calcium 9.1 mg/dL (8.4-10.2); Magnesium 2.5 mg/dL (1.6-2.3); Potassium 5.3 mmol/L (3.5-5.1); Total Bilirubin 0.5 mg/dL (0.2-1.3); Total Protein 6.3 g/dL (6.3-8.2)
--- NOTE | 2019-12-05 10:05 | XR ---
EXAMINATION TYPE: XR chest 2V DATE OF EXAM: 12/05/2019 COMPARISON: 11/24/2019 HISTORY: Difficulty breathing. History of congestive heart failure. TECHNIQUE: Frontal and lateral views of the chest are obtained. FINDINGS: Bilateral trace pleural effusions are seen with associated bibasilar airspace disease. The re is mild pulmonary vascular congestion best appreciated on the lateral view. Cardiomediastinal silh ouette is upper limits of normal size. Moderate degenerative change of the spine. IMPRESSION: Fluid overload with mild pulmonary vascular congestion and trace pleural effusions. Biba silar airspace disease likely represents atelectasis. Findings have progressed from the prior.
[2019-12-05 11:19] LABS: Partial Thromboplastin Time 21.5 sec (22.0-30.0)
[2019-12-05] MEDS: NITROGLYCERIN OINT 1 INCH/GM PACKET TOPICAL SCH ×3 (11:27→21:58)
[2019-12-05 12:14] LABS: Glucose,Whole Blood 150 mg/dL (75-99)
[2019-12-05 12:24] VITALS: BMI 41.6
[2019-12-05] MEDS ORDERED: NA PHOS,M-B/NA PHOS,DI-BA 133 ML ENEMA RECTAL PRN (14:24)
[2019-12-05] MEDS ORDERED: MAGNESIUM HYDROXIDE 2,400 MG/10 ML CUP PO PRN (14:24)
[2019-12-05] MEDS ORDERED: hydrOXYzine HCL 25 MG TAB PO PRN (14:24)
[2019-12-05] MEDS ORDERED: LIDOCAINE 5% OINTMENT 50 GM JAR TOPICAL PRN (14:24)
[2019-12-05] MEDS ORDERED: BISACODYL 10 MG SUPP RECTAL PRN (14:24)
[2019-12-05] MEDS ORDERED: HYDROCORTISONE 1% CREAM 30 GM TUBE TOPICAL PRN (14:24)
[2019-12-05] MEDS ORDERED: NON FORMULARY DRUG (Glucerna Shake 120 ML) PO SCH (17:00)
[2019-12-05] MEDS ORDERED: ASPIRIN 325 MG TAB PO SCH (17:00)
[2019-12-05 17:11] LABS: Glucose,Whole Blood 213 mg/dL (75-99)
--- NOTE | 2019-12-05 17:20 | HP ---
HISTORY AND PHYSICAL CHIEF COMPLAINT: Shortness of breath. HISTORY OF PRESENT ILLNESS: This is another admission for this 79-year-old female who has been in an out of the hospital lately due to general debility, venous stasis disease, ulcer of the right heel and congestive heart failure. She started to have more difficulty breathing and [facility] called that she had gained about 11 pounds in the last week. She was sent into the emergency room where she was found to be in congestive heart failure. REVIEW OF SYSTEMS: She only complains of shortness of breath. She denies chest pain. She has had no neurologic problems, abdominal pain, nausea, vomiting, fever, chills, etc. Past medical history, family history, and personal and social histories are all otherwise unremarkable and noncontributory and can be found in her admitting documents [facility] the [facility] as well as her past visits here recently. PHYSICAL EXAMINATION: Temperature is 97.8, blood pressure is 141/46 with the pulse 71 and regular. In general she appeared to be pale, weak, but arousable and oriented and alert. Head, ears, eyes, nose, mouth, and throat were normal. Chest demonstrated decreased breath sounds throughout with rales posteriorly. Cardiac exam demonstrated normal sinus rhythm. Abdomen is soft and nontender. There are no masses or visceromegaly. Extremities are normal except for the protective boot on the right heel. Neurologically she is intact. IMPRESSION: 1. Acute diastolic congestive heart failure. 2. Chronic diastolic heart failure. 3. Diabetes mellitus. 4. 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 PLAN: 1. Bed rest. 2. Diuresis. 3. [facility] once her heart failure is under control. MMODL / IJN: [id number] /
[2019-12-05] MEDS: FUROSEMIDE 40 MG TAB PO SCH (17:25)
[2019-12-05] MEDS: FUROSEMIDE 10 MG/ML 4 ML VIAL IV SCH ×2 (17:31→22:59)
[2019-12-05] MEDS: INSULIN ASPART (NovoLOG) 100 UNIT/ML VIAL SQ SCH ×3 (17:31→20:55)
[2019-12-05 20:46] LABS: Glucose,Whole Blood 138 mg/dL (75-99)
[2019-12-06] MEDS: LEVOTHYROXINE 100 MCG TAB PO SCH (05:49)
[2019-12-06 07:39] LABS: Glucose,Whole Blood 143 mg/dL (75-99)
[2019-12-06] MEDS: CARVEDILOL 12.5 MG TAB PO SCH (08:27)
[2019-12-06] MEDS: FUROSEMIDE 10 MG/ML 4 ML VIAL IV SCH (08:27)
[2019-12-06] MEDS: amLODIPine 10 MG TAB PO SCH (08:27)
[2019-12-06] MEDS: FUROSEMIDE 40 MG TAB PO SCH (08:28)
[2019-12-06] MEDS: INSULIN ASPART (NovoLOG) 100 UNIT/ML VIAL SQ SCH ×7 (08:28→22:19)
[2019-12-06] MEDS: INSULIN DETEMIR (LEVEMIR) 100 UNIT/ML SYR SQ SCH (08:28)
[2019-12-06] MEDS: LOSARTAN 50 MG TAB PO SCH (08:30)
[2019-12-06] MEDS: NITROGLYCERIN OINT 1 INCH/GM PACKET TOPICAL SCH ×4 (08:30→21:12)
[2019-12-06 11:00] LABS: Basophils # (A) 0.1 k/uL (0-0.2); Basophils % (A) 1 %; Eosinophils # (A) 0.4 k/uL (0-0.7); Eosinophils % (A) 6 %; HCT 29.4 % (34.0-46.0); HGB 8.8 gm/dL (11.4-16.0); Hypochromasia Marked; Lymphocytes # (A) 0.9 k/uL (1.0-4.8); Lymphocytes % (A) 14 %; MCH 26.2 pg (25.0-35.0); MCHC 30.1 g/dL (31.0-37.0); MCV 87.2 fL (80.0-100.0); Mean Platelet Volume 7.6; Monocytes # (A) 0.4 k/uL (0-1.0); Monocytes % (A) 7 %; Neutrophils # (A) 4.2 k/uL (1.3-7.7); Neutrophils % (A) 69 %; Platelet Count 373 k/uL (150-450); RBC 3.37 m/uL (3.80-5.40); WBC 6.1 k/uL (3.8-10.6)
[2019-12-06 11:13] LABS: Calcium 9.3 mg/dL (8.4-10.2); Potassium 4.7 mmol/L (3.5-5.1)
[2019-12-06 11:33] LABS: Glucose,Whole Blood 110 mg/dL (75-99)
[2019-12-06] MEDS: HYDROCHLOROTHIAZIDE 25 MG TAB PO SCH (12:27)
--- NOTE | 2019-12-06 12:30 | CONS ---
CONSULTATION This is a 79-year-old lady with a poorly healing right heel ulcer. She also has a diastolic heart failure, hypertension, and diabetes. She was recently discharged from the hospital and during that hospitalization workup revealed normal systolic function. She was sent from a snf because of concern for fluid overload and more shortness of breath requiring more oxygen. At the time of my evaluation, she is comfortable, resting. She is not in any overt heart failure at this time but she did receive some IV Lasix as well. She is resting comfortably without symptoms at this time. Please refer to the detailed consultation by Dr. Castillo for recent hospitalization. PAST MEDICAL HISTORY: Remarkable for diastolic heart failure, hypothyroidism, hypertension, type 2 diabetes mellitus and poorly healing right foot/heel ulcer. MEDICATIONS: Medications at home include Coreg, levothyroxine, losartan, aspirin, insulin and amlodipine. She also takes Lasix 40 mg daily at home. ALLERGIES: Penicillin. PHYSICAL EXAMINATION: On examination, blood pressure is 140/70, pulse rate is 64 per minute regular. HEENT unremarkable. Fundus was not examined by me. NECK: Supple. There is JVD of 1 cm. No carotid bruit. HEART exam reveals S1, S2 heard normally, short systolic murmur. LUNGS revealed decent air entry with fine scattered rhonchi. ABDOMEN is soft. LOWER EXTREMITIES reveal diminished pulses. CENTRAL NERVOUS SYSTEM grossly no focal deficits. IMPRESSION: 1. Acute on chronic exacerbation of diastolic heart failure which has improved. 2. Hypertension. 3. Diabetes. 4. Poorly healing right heel ulcer. RECOMMENDATIONS: I am recommending that we can discontinue IV Lasix, place her on 40 mg Lasix p.o. Her potassium is elevated. We will add hydrochlorothiazide 25 mg daily, decrease the aspirin to 81 mg daily. Check a CBC, BMP tomorrow and based on clinical course, we will make further recommendations. Discussed my thoughts in detail with the patient. I will also add a Ventolin inhaler as well. Thank you very much for the consult. MMIRVINL / IJN: [id number] /
[2019-12-06] MEDS: ALBUTEROL NEBULIZED 2.5 MG/3 ML INHALATION SCH ×2 (12:53→20:42)
--- NOTE | 2019-12-06 14:00 | PN ---
PROGRESS NOTE DATE OF SERVICE: 12/06/2019. CHIEF COMPLAINT: Acute congestive heart failure. HISTORY OF PRESENT ILLNESS: This lady is doing fairly well. She is awake and alert. She is being taken off IV Lasix and switched to oral. She has no complaints. PHYSICAL EXAMINATION: Chest still demonstrates rales scattered throughout posteriorly. There are occasional rhonchi. Cardiac exam is normal. Abdomen is soft, nontender. IMPRESSION: 1. Acute congestive heart failure. 2. Chronic congestive heart failure. 3. Failure to thrive. 4. Diabetes. PLAN: 1. Switched over to oral Lasix. 2. Obtain BNP. 3. Continue to manage her CHF and she may be able to go back to [facility] tomorrow. MMODL / IJN: [id number] /
[2019-12-06 17:04] LABS: Glucose,Whole Blood 170 mg/dL (75-99)
[2019-12-06] MEDS: ASPIRIN 81 MG PO SCH (18:20)
[2019-12-06 22:22] LABS: Glucose,Whole Blood 56 mg/dL (75-99)
[2019-12-06 23:12] LABS: Glucose,Whole Blood 135 mg/dL (75-99)
[2019-12-07] MEDS: LEVOTHYROXINE 100 MCG TAB PO SCH (05:25)
[2019-12-07] MEDS: NITROGLYCERIN OINT 1 INCH/GM PACKET TOPICAL SCH ×4 (06:45→21:47)
[2019-12-07 07:23] LABS: Glucose,Whole Blood 168 mg/dL (75-99)
[2019-12-07] MEDS: ALBUTEROL NEBULIZED 2.5 MG/3 ML INHALATION SCH ×3 (08:15→19:47)
[2019-12-07] MEDS: amLODIPine 10 MG TAB PO SCH (08:36)
[2019-12-07] MEDS: FUROSEMIDE 40 MG TAB PO SCH (08:37)
[2019-12-07] MEDS: CARVEDILOL 12.5 MG TAB PO SCH (08:37)
[2019-12-07] MEDS: HYDROCHLOROTHIAZIDE 25 MG TAB PO SCH (08:37)
[2019-12-07] MEDS: LOSARTAN 50 MG TAB PO SCH (08:37)
[2019-12-07] MEDS: INSULIN ASPART (NovoLOG) 100 UNIT/ML VIAL SQ SCH ×7 (08:37→21:47)
[2019-12-07] MEDS: INSULIN DETEMIR (LEVEMIR) 100 UNIT/ML SYR SQ SCH (08:40)
[2019-12-07 12:06] LABS: Glucose,Whole Blood 65 mg/dL (75-99)
[2019-12-07 12:07] LABS: Glucose,Whole Blood 75 mg/dL (75-99)
--- NOTE | 2019-12-07 14:11 | P.CONS ---
History of Present Illness - Reason for Consult Consult date: 12/07/19 wound care - History of Present Illness This is a 79-year-old pleasant female being seen on 4 S. for nonhealing ulcerations to the left gluteus and the right calcaneus. Patient is a resident of [facility] and being followed by Dr. Beckwith for wound care. Utilizing Santyl. Patient states that the ulcerations are relatively the same as they were at [facility]. Patient has no complaints or concerns expressed at th is time. Patient's past medical history includes distant heart failure, COPD, diabetes, hypertension patient, hyperlipidemia, osteoarthritis, on the nares edema, hiatal hernia Review of Systems Review Of Systems: Constitutional: No fever, no chills, no night sweats. No weight change. No weakness, fatigue or lethargy. No daytime sleepiness. Integumentary:reports wounds, no lesions. No rash or pruritus. No unusual bruising. No change in hair or nails. Past Medical History Past Medical History: Heart Failure, COPD, Diabetes Mellitus, Hyperlipidemia, Hypertension, Osteoarthritis (OA), Pneumonia, Skin Disorder, Thyroid Disorder Additional Past Medical History / Comment(s): PUL EDEMA, HIATL HERNIA, EDEMA TO LEGS AND BREAKDOWN/BLISTERS TO MARTÍN LEGS, IBS, EDEMA TO BILAT LE'S History of Any Multi-Drug Resistant Organisms: None Reported Past Surgical History: Cholecystectomy, Tonsillectomy Additional Past Surgical History / Comment(s): neck SX REMOVED BENIGN MASS OUT, RT BREAST BX-BENIGN, LASER EYE SX THINKS ON HER RT EYE. Past Anesthesia/Blood Transfusion Reactions: No Reported Reaction Past Psychological History: No Psychological Hx Reported Smoking Status: Never smoker Past Alcohol Use History: None Reported Past Drug Use History: None Reported - Past Family History Father Family Medical History: Hypertension, Myocardial Infarction ([place]) Additional Family Medical History / Comment(s): X3 [place], Mother Family Medical History: Cancer Additional Family Medical History / Comment(s): DIES FROM COLON CA Medications and Allergies Home Medications Medication Instructions Recorded Confirmed Type Carvedilol [Coreg*] 12.5 mg PO DAILY@0800 10/02/19 12/05/19 History Levothyroxine Sodium 100 mcg PO DAILY@0600 10/02/19 12/05/19 History Losartan [Cozaar] 50 mg PO DAILY@0800 10/02/19 12/05/19 History Acetaminophen [Tylenol] 650 mg PO Q4H PRN 10/18/19 12/05/19 History Aspirin EC [Ecotrin] 325 mg PO DAILY@1700 10/18/19 12/05/19 History Bisacodyl [Dulcolax] 10 mg RECTAL DAILY PRN 10/18/19 12/05/19 History INSULIN ASPART (NovoLOG) [NovoLOG 5 unit SQ AC-TID 10/18/19 12/05/19 History (formulary)] Magnesium Hydroxide [Milk of 7,200 mg PO DAILY PRN 10/18/19 12/05/19 History Magnesia Concentrate] Na Phos,M-B/Na Phos,Di-Ba [Fleet 133 ml RECTAL DAILY PRN 10/18/19 12/05/19 History Adult] amLODIPine [Norvasc] 10 mg PO DAILY@0800 10/18/19 12/05/19 History Insulin Detemir (Levemir) [Levemir] 15 unit SQ DAILY@0700 11/08/19 12/05/19 History Collagenase [Santyl] 1 applic TOPICAL DAILY 11/20/19 12/05/19 History Glucerna Shake 120 ml PO TID@0800,1200,1700 11/20/19 12/05/19 History Lidocaine 5% Oint [Xylocaine 5% 1 applic TOPICAL DAILY PRN 11/20/19 12/05/19 History Oint] Liquical 30 ml PO BID@0800,1700 11/20/19 12/05/19 History Furosemide [Lasix] 40 mg PO DAILY@0800 12/05/19 12/05/19 History Hydrocortisone Cream 1 applic TOPICAL Q6H PRN 12/05/19 12/05/19 History [Hydrocortisone 2.5% Cream] hydrOXYzine HCL [Atarax] 25 mg PO Q8H PRN 12/05/19 12/05/19 History Allergies Allergy/AdvReac Type Severity Reaction Status Date / Time Penicillins Allergy Rash/Hives Verified 12/05/19 12:44 Physical Exam Vitals: Vital Signs Temp Pulse Pulse Resp BP Pulse Ox 12/07/19 11:39 72 12/07/19 11:31 76 12/07/19 07:17 72 16 05/26/20 07:00 98.2 F 72 16 133/66 94 L 12/07/19 01:45 98.5 F 75 20 132/55 93 L 12/06/19 20:54 72 12/06/19 20:43 68 12/06/19 20:30 98.2 F 66 20 149/69 92 L 12/06/19 16:00 69 16 Intake and Output 12/06/19 12/07/19 12/07/19 22:59 06:59 14:59 Output Total 1450 300 Balance -1450 -300 Output: Urine 1450 300 Other: # Voids 2 2 # Bowel Movements 1 Physical exam: General Appearance: Alert, cooperative, no distress, appears stated age. Skin: Left gluteal ulceration is a stage II pressure ulcer with fatty layer exposure measuring approximately 1.5 x 1.7 x 0.1 cm large amount of granulation seen within wound bed minimal Slough, no undermining or tunneling noted, para wound shows dry scaly and scarring, wound edges attached to wound bed. Right calcaneus lateral aspect ulceration is a Obrien grade 3 ulcer with fat layer is subcutaneous layer exposure, significant amount of slough seen throughout wound bed minimal granulation. No tunneling or undermining noted. Significant amount of drainage all other Skin color, texture, tugor normal, no rashes or lesions. Neurologic: Alert oriented x3 Results CBC & Chem 7: 12/06/19 10:40 12/06/19 10:40 Labs: Abnormal Lab Results - Last 24 Hours (Table) 12/06/19 12/06/19 12/06/19 Range/Units 16:52 22:16 23:08 POC Glucose (mg/dL) 170 H 56 L 135 H (75-99) mg/dL 12/07/19 12/07/19 Range/Units 07:10 11:47 POC Glucose (mg/dL) 168 H 65 L (75-99) mg/dL Microbiology - Last 24 Hours (Table) 12/05/19 09:47 Blood Culture - Preliminary Blood No Growth after 48 hours Assessment and Plan (1) Diabetic foot ulcer associated with type 2 diabetes mellitus, with fat layer exposed Current Visit: No Status: Acute Code(s): E11.621 - TYPE 2 DIABETES MELLITUS WITH FOOT ULCER; L97.502 - NON-PRS CHRONIC ULCER OTH PRT UNSP FOOT W FAT LAYER EXPOSED SNOMED Code(s): 0258638379925 (2) Pressure ulcer of left buttock, stage 2 Current Visit: No Status: Acute Code(s): L89.322 - PRESSURE ULCER OF LEFT BUTTOCK, STAGE 2 SNOMED Code(s): 770040519 (3) Non-pressure chronic ulcer of other part of right foot with muscle invo lvement without evidence of necrosis Current Visit: Yes Status: Acute Code(s): L97.515 - NON-PRS [facility] OTH PRT R FOOT WITH MSL INVL W/O EVD OF NECR SNOMED Code(s): 733713906 Plan: Left gluteus ulcer apply honey alginate, saline moistened gauze, dry gauze and secure with foam border dressing. Change Friday. Right calcaneus lateral aspect ulceration apply Santyl saline moistened gauze dry gauze rolled gauze and secure with paper tape. Change daily. Patient can to continue wound care upon return to [facility]. Thank you kindly for the consultation any questions please contact the wound care center DNP note has been reviewed and discussed with Dr. Barone and the impression and plan of care has been directed as dictated.
[2019-12-07] MEDS: COLLAGENASE 250 UNIT/GM OINTMENT 30 GM TUBE TOPICAL SCH ×3 (15:45→17:09)
[2019-12-07 16:50] LABS: Glucose,Whole Blood 132 mg/dL (75-99)
[2019-12-07] MEDS: ASPIRIN 81 MG PO SCH (17:39)
[2019-12-07 21:20] LABS: Glucose,Whole Blood 174 mg/dL (75-99)
--- NOTE | 2019-12-07 22:02 | PN ---
PROGRESS NOTE CHIEF COMPLAINT: CHF. HISTORY OF PRESENT ILLNESS: This lady is doing a little bit better. Diuresis has helped. PHYSICAL EXAMINATION: Her chest is quite clear except for scattered rales. Cardiac exam is unchanged. The abdomen is soft and nontender. IMPRESSION: Congestive heart failure. PLAN: [facility] day or two. MMODL / IJN: [id number] /
[2019-12-08] MEDS: LEVOTHYROXINE 100 MCG TAB PO SCH (05:38)
[2019-12-08 06:58] LABS: Glucose,Whole Blood 127 mg/dL (75-99)
[2019-12-08] MEDS: INSULIN ASPART (NovoLOG) 100 UNIT/ML VIAL SQ SCH ×5 (07:16→13:10)
[2019-12-08] MEDS: NITROGLYCERIN OINT 1 INCH/GM PACKET TOPICAL SCH (07:17)
[2019-12-08] MEDS: HYDROCHLOROTHIAZIDE 25 MG TAB PO SCH (07:37)
[2019-12-08] MEDS: INSULIN DETEMIR (LEVEMIR) 100 UNIT/ML SYR SQ SCH (07:37)
[2019-12-08] MEDS: CARVEDILOL 12.5 MG TAB PO SCH (07:37)
[2019-12-08] MEDS: FUROSEMIDE 40 MG TAB PO SCH (07:37)
[2019-12-08] MEDS: LOSARTAN 50 MG TAB PO SCH (07:37)
[2019-12-08] MEDS: amLODIPine 10 MG TAB PO SCH (07:37)
[2019-12-08] MEDS: COLLAGENASE 250 UNIT/GM OINTMENT 30 GM TUBE TOPICAL SCH (07:38)
[2019-12-08] MEDS ORDERED: ACETAMINOPHEN TAB 325 MG TAB PO PRN (07:55)
[2019-12-08] MEDS: ALBUTEROL NEBULIZED 2.5 MG/3 ML INHALATION SCH ×2 (07:58→12:03)
[2019-12-08 08:03] VITALS: BP 129/53; RESP 17; TEMP 98.7
--- NOTE | 2019-12-08 08:17 | P.PN ---
Subjective Progress Note Date: 12/07/19 This is a pleasant 79-year-old female past medical history significant for diastolic heart failure, hypertension, diabetes mellitus, hypothyroidism, chronic kidney disease and poorly healing right foot/heel ulcer. Currently maintained on amlodipine 10 mg daily, aspirin 81 mg daily, carvedilol 12.5 mg daily, Lasix 40 mg by mouth daily, hydrochlorothiazide 25 mg daily and losartan 50 mg daily. Blood pressure 133/66 heart rate 72 afebrile maintaining oxygen saturation on nasal cannula. Most recent echocardiogram obtained 11/22/2019 reveals preserved LV systolic function with ejection fraction 55-60%, mild aortic valve sclerosis with a mean gradient of 5 mmHg, trace mitral regurgitation and mildly thickened mitral valve leaflets. She continues to complain of mild ongoing shortness of breath. No chest pain, dizziness or palpitations. GENERAL: Well-appearing, well-nourished and in no acute distress. NECK: Supple without JVD or thyromegaly. LUNGS: Bibasilar crackles, no rhonchi or wheezes. Respiration equal and unlabored. HEART: Regular rate and rhythm with systolic ejection murmur at the left sternal border, no rubs or gallops. S1 and S2 heard. EXTREMITIES: Normal range of motion, trace bilateral lower extremity edema, bilateral erythema and Arnoldo wraps in place. No clubbing or cyanosis. Peripheral pulses intact. ASSESSMENT Acute on chronic diastolic heart failure, improved Hypertension Diabetes mellitus Chronic kidney disease COPD PLAN Continue current medical regimen. Repeat BMP in the morning. Nurse Practitioner note has been reviewed, I agree with a documented findings and plan of care. Patient was seen and examined. Objective - Vital Signs Vital signs: Vital Signs Temp 98.7 F 12/08/19 07:00 Pulse 68 12/08/19 07:58 Resp 17 12/08/19 07:00 BP 129/53 12/08/19 07:00 Pulse Ox 90 L 12/08/19 07:00 Intake & Output 12/07/19 12/08/19 12/08/19 18:59 06:59 18:59 Output Total 2200 Balance -2200 Weight 100.5 kg Output: Urine 2200 Other: # Voids 2 1 - Labs CBC & Chem 7: 12/06/19 10:40 12/06/19 10:40 Labs: Abnormal Lab Results - Last 24 Hours (Table) 12/07/19 12/07/19 12/07/19 Range/Units 11:47 16:40 21:19 POC Glucose (mg/dL) 65 L 132 H 174 H (75-99) mg/dL 12/08/19 Range/Units 06:56 POC Glucose (mg/dL) 127 H (75-99) mg/dL Microbiology - Last 24 Hours (Table) 12/05/19 09:47 Blood Culture - Preliminary Blood No Growth after 48 hours
[2019-12-08 10:14] LABS: Calcium 8.8 mg/dL (8.4-10.2); Potassium 4.5 mmol/L (3.5-5.1)
[2019-12-08 12:15] VITALS: PULSE 68
[2019-12-08 12:33] LABS: Glucose,Whole Blood 75 mg/dL (75-99)
--- NOTE | 2019-12-08 14:33 | P.PN ---
Subjective This is a pleasant 79-year-old female past medical history significant for diastolic heart failure, hypertension, diabetes mellitus, hypothyroidism, chronic kidney disease and poorly healing right foot/heel ulcer. Currently maintained on amlodipine 10 mg daily, aspirin 81 mg daily, carvedilol 12.5 mg daily, Lasix 40 mg by mouth daily, hydrochlorothiazide 25 mg daily and losartan 50 mg daily. Blood pressure 133/66 heart rate 72 afebrile maintaining oxygen saturation on nasal cannula. Most recent echocardiogram obtained 11/22/2019 reveals preserved LV systolic function with ejection fraction 55-60%, mild aortic valve sclerosis with a mean gradient of 5 mmHg, trace mitral regurgitation and mildly thickened mitral valve leaflets. She continues to complain of mild ongoing shortness of breath. No chest pain, dizziness or palpitations. 12/08/2019 Pt is seen and examined sitting up in the chair in no acute distress. She denies chest pain, shortness of breath, dizziness or palpitations. Blood pressure 129/53 heart rate 68 afebrile and maintaining oxygen saturation on nasal cannula. Laboratory data reviewed, sodium 138, potassium 4.5, creatinine 1.3. Currently maintained on amlodipine 10 mg daily, aspirin 81 mg daily, carvedilol 12.5 mg daily, Lasix 40 mg daily, hydrochlorothiazide 25 mg daily and losartan 50 mg daily. GENERAL: Well-appearing, well-nourished and in no acute distress. NECK: Supple without JVD or thyromegaly. LUNGS: Bibasilar crackles, no rhonchi or wheezes. Respiration equal and unlabored. HEART: Regular rate and rhythm with systolic ejection murmur at the left sternal border, no rubs or gallops. S1 and S2 heard. EXTREMITIES: Normal range of motion, trace bilateral lower extremity edema, bilateral erythema and boot in place to the right lower extremity. No clubbing or cyanosis. Peripheral pulses intact. ASSESSMENT Acute on chronic diastolic heart failure, improved Hypertension Diabetes mellitus Chronic kidney disease COPD PLAN Stable for discharge from a cardiac perspective. Follow up with Dr. Avila in the office in 2 weeks. Nurse Practitioner note has been reviewed, I agree with a documented findings and plan of care. Patient was seen and examined. Objective - Vital Signs Vital signs: Vital Signs Temp 98.7 F 12/08/19 07:00 Pulse 68 12/08/19 12:14 Resp 17 12/08/19 07:00 BP 129/53 12/08/19 07:00 Pulse Ox 90 L 12/08/19 07:00 Intake & Output 12/07/19 12/08/19 12/08/19 18:59 06:59 18:59 Output Total 2200 Balance -2200 Weight 100.5 kg Output: Urine 2200 Other: # Voids 2 1 - Labs CBC & Chem 7: 12/06/19 10:40 12/08/19 08:58 Labs: Abnormal Lab Results - Last 24 Hours (Table) 12/07/19 12/07/19 12/08/19 Range/Units 16:40 21:19 06:56 Carbon Dioxide (22-30) mmol/L BUN (7-17) mg/dL Creatinine (0.52-1.04) mg/dL Glucose (74-99) mg/dL POC Glucose (mg/dL) 132 H 174 H 127 H (75-99) mg/dL 12/08/19 Range/Units 08:58 Carbon Dioxide 32 H (22-30) mmol/L BUN 43 H (7-17) mg/dL Creatinine 1.30 H (0.52-1.04) mg/dL Glucose 121 H (74-99) mg/dL POC Glucose (mg/dL) (75-99) mg/dL Microbiology - Last 24 Hours (Table) 12/05/19 09:47 Blood Culture - Preliminary Blood No Growth after 72 hours
--- NOTE | 2019-12-09 05:33 | DS ---
DISCHARGE SUMMARY CHIEF COMPLAINT: Shortness of breath and congestive heart failure. HISTORY OF PRESENT ILLNESS AND PHYSICAL EXAM: Details of this lady's history and physical can be found in the initial workup. LABORATORY STUDIES: While she was in the hospital she had laboratory studies, details of which can be found in the laboratory section of her chart. COURSE IN HOSPITAL: After admission she was placed on bedrest, started on intravenous fluids and IV diuretics. Breathing improved and congestive heart failure was brought under control. She was switched over to oral Lasix and was doing well. It was felt that she could be returned to the retirement on the . FINAL DIAGNOSES: 1. Acute congestive heart failure. 2. Chronic congestive heart failure (diastolic). 3. History of hypertension. 4. Venous stasis disease and cellulitis of the lower extremities. 5. 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 She will be returned to [facility] and be assessed there. She is improved. MMODL / HEAVENLYN: [id number] /
--- NOTE | 2019-12-10 09:14 | CDI ---
Documentation Clarification Form Date: 12/10/2019 08:59:03 AM From: Lu Hemphill CCS, CCDS Admit Date: 12/05/2019 11:02:00 AM Patient Name: Jane Malone Visit Number: [id number] Discharge Date: 12/08/2019 02:53:00 PM ATTENTION: The Clinical Documentation Specialists (CDI) and [facility] Coding Staff appreciate your assistance in clarifying documentation. Please respond to the clarification below the line at the bottom and electronically sign. The CDI & [facility] Coding staff will review the response and follow-up if needed. Please note: Queries are made part of the Legal Health Record. If you have any questions, please contact the author of this message via ITS. Dr. Faisal Fleming: This patient presented to the ED on 12/04 from a senior living with SOB & possible fluid overload with a history of CHF & COPD, recent pneumonia. Also Diabetic with a stage IV ulcer to her right heel. COVID TEST was done 12/04: Negative. The status of the COVID test is not documented in the record. Patient history/risk factors: Admitted from a Residential, Hypertensive Heart Failure with CKD, COPD, Obesity & IDDM. Clinical Indicators on Admission: Presented to ED as above. Also diagnosed with cellulitis of the bilateral lower extremities. VS: PO 99 on 4Lnc LAB: Hgb 8.9*, K 5.3^, BUN 43^, Cr 1.06^, Glucose 143^. Treatment: IV Lasix, INH Albuterol, O2 2-4Lnc In order to capture the severity of condition, please clarify if the above treatment/clinical indicators signify: COVID-19 ruled out COVID-19 suspected, treated Other, please specify Unable to determine (Last Form Revision: September 2019) MTDD
--- NOTE | 2019-12-11 10:37 | MISC ---
MISCELLANOUS REPORT COVID-19 ruled out. MMODL / IJN: [id number] /
== END 2019-12-08 14:53 | DRG 291 ==
LOC: EC 09:11 → 4SSUR 11:02
PROVIDERS: ADMIT Family Medicine; ATTEND Family Medicine
DX: I13.0 Hypertensive heart and chronic kidney disease with heart failure and stage 1 through stage 4 chronic kidney disease, or unspecified chronic kidney disease (principal); L89.614 Pressure ulcer of right heel, stage 4; I50.33 Acute on chronic diastolic (congestive) heart failure; L03.115 Cellulitis of right lower limb; L03.116 Cellulitis of left lower limb; E03.9 Hypothyroidism, unspecified; E11.22 Type 2 diabetes mellitus with diabetic chronic kidney disease; E78.5 Hyperlipidemia, unspecified; I87.8 Other specified disorders of veins; L89.322 Pressure ulcer of left buttock, stage 2; E11.621 Type 2 diabetes mellitus with foot ulcer; J44.9 Chronic obstructive pulmonary disease, unspecified; M19.90 Unspecified osteoarthritis, unspecified site; E66.9 Obesity, unspecified; Z20.828 Contact with and (suspected) exposure to other viral communicable diseases; R62.7 Adult failure to thrive; N18.9 Chronic kidney disease, unspecified; Z79.4 Long term (current) use of insulin; Z79.890 Hormone replacement therapy; Z79.82 Long term (current) use of aspirin; Z79.899 Other long term (current) drug therapy; Z88.0 Allergy status to penicillin; Z87.01 Personal history of pneumonia (recurrent); Z90.49 Acquired absence of other specified parts of digestive tract; Z90.89 Acquired absence of other organs; Z98.890 Other specified postprocedural states; Z80.0 Family history of malignant neoplasm of digestive organs; Z82.49 Family history of ischemic heart disease and other diseases of the circulatory system; Z68.39 Body mass index [BMI] 39.0-39.9, adult
CPT/HCPCS: 36415; 71046; 80048; 80053; 83605; 83735; 83880; 84484; 85025; 85610; 85730; 87040; 87635; 93005; 94640; 96374; 99285

== ENCOUNTER 2020-09-30 06:33 | Inpatient (IN) | payer MEDICARE, OTHER ==
[2020-09-30] MEDS ORDERED: SODIUM CHLORIDE 0.9% 1,000 ML IV STA ×3 (06:37→07:52)
[2020-09-30] MEDS ORDERED: INSULIN REGULAR 100 UNIT/ML VIAL IV ONE ×5 (06:37→17:43)
[2020-09-30] MEDS ORDERED: CALCIUM CHLORIDE 100 MG/ML 10 ML SYRINGE IVP STA (06:37)
[2020-09-30] MEDS ORDERED: SODIUM BICARB 8.4% 50 ML SYR (1 MEQ/ML) IV STA ×2 (06:37→17:44)
[2020-09-30] MEDS ORDERED: DEXTROSE 50% SYRINGE 50 ML IVP STA ×4 (06:37→17:43)
[2020-09-30] MEDS ORDERED: ATROPINE SULFATE 0.1 MG/ML 10ML SYRINGE IV STA ×2 (06:38→07:36)
[2020-09-30] MEDS ORDERED: methylPREDNISolone SOD SUCCI 125 MG/2 ML VIAL IV STA (06:38)
--- NOTE | 2020-09-30 06:43 | ED ---
Weakness HPI - General Stated complaint: Decreased heart rate Time Seen by Provider: 09/30/20 06:36 Source: RN notes reviewed, old records reviewed Mode of arrival: EMS Limitations: no limitations - History of Present Illness Initial comments: This is an 80-year-old female DF for evaluation, patient is found to be in significant distress. Unknown downtime, patient has some point over the night did fall out of her chair was found on the ground. She was able to call her daughter and alert her that she needed assistance. Patient himself has no real complaints of pain. She has been incontinent of stool and urine. Patient is brought in by EMS who provides history of this time. EMS state patient was found to significant low heart rate marginal blood pressure. Patient herself. Denies any history of heart disease chest pain or current shortness of breath. Patient does admit to feeling significantly weak throughout the day yesterday felt marginal. No fevers. MD Complaint: generalized weakness, difficulty walking -: hour(s) Location: generalized Severity: severe Severity scale (1-10): 10 Consistency: constant Improves with: none Worsens with: none Context: recent illness, history of similar Associated Symptoms: confusion, syncope (Questionable) - Related Data Home Medications Medication Instructions Recorded Confirmed Levothyroxine Sodium 100 mcg PO DAILY 10/02/19 09/30/20 Losartan [Cozaar] 50 mg PO DAILY 10/02/19 09/30/20 carvediloL [Coreg*] 12.5 mg PO DAILY 10/02/19 09/30/20 amLODIPine [Norvasc] 10 mg PO DAILY 10/18/19 09/30/20 Furosemide [Lasix] 40 mg PO DAILY 12/05/19 09/30/20 Atorvastatin [Lipitor] 40 mg PO DAILY 09/30/20 09/30/20 Insulin Aspart Protam & Aspart 10 unit SQ HS 09/30/20 09/30/20 [NovoLOG MIX 70-30 Flexpen] Insulin Aspart Protam & Aspart 28 unit SQ DAILY 09/30/20 09/30/20 [NovoLOG MIX 70-30 Flexpen] Spironolactone 25 mg PO DAILY 09/30/20 09/30/20 Allergies Allergy/AdvReac Type Severity Reaction Status Date / Time Penicillins Allergy Rash/Hives Verified 09/30/20 08:28 Review of Systems ROS Statement: Those systems with pertinent positive or pertinent negative responses have been documented in the HPI. ROS Other: All systems not noted in ROS Statement are negative. Past Medical History Past Medical History: Heart Failure, COPD, Diabetes Mellitus, Hyperlipidemia, Hypertension, Osteoarthritis (OA), Pneumonia, Skin Disorder, Thyroid Disorder Additional Past Medical History / Comment(s): PUL EDEMA, HIATL HERNIA, EDEMA TO LEGS AND BREAKDOWN/BLISTERS TO MARTÍN LEGS, IBS, EDEMA TO BILAT LE'S History of Any Multi-Drug Resistant Organisms: None Reported Past Surgical History: Cholecystectomy, Tonsillectomy Additional Past Surgical History / Comment(s): neck SX REMOVED BENIGN MASS OUT, RT BREAST BX-BENIGN, LASER EYE SX THINKS ON HER RT EYE. Past Anesthesia/Blood Transfusion Reactions: No Reported Reaction Past Psychological History: No Psychological Hx Reported Past Alcohol Use History: None Reported Past Drug Use History: None Reported - Past Family History Father Family Medical History: Hypertension, Myocardial Infarction (RI) Additional Family Medical History / Comment(s): X3 [place], Mother Family Medical History: Cancer Additional Family Medical History / Comment(s): DIES FROM [place] General Exam Limitations: altered mental status General appearance: alert, in no apparent distress, anxious, lethargic, in distress, obese Head exam: Present: atraumatic, normocephalic, normal inspection Eye exam: Present: normal appearance, PERRL, EOMI. Absent: scleral icterus, conjunctival injection, periorbital swelling ENT exam: Present: normal exam, mucous membranes moist Neck exam: Present: normal inspection. Absent: tenderness, meningismus, lymphadenopathy Respiratory exam: Present: normal lung sounds bilaterally. Absent: respiratory distress, wheezes, rales, rhonchi, stridor Cardiovascular Exam: Present: bradycardia, normal heart sounds. Absent: systolic murmur, diastolic murmur, rubs, gallop, clicks GI/Abdominal exam: Present: soft, normal bowel sounds. Absent: distended, ten derness, guarding, rebound, rigid Extremities exam: Present: normal inspection, full ROM, normal capillary refill. Absent: tenderness, pedal edema, joint swelling, calf tenderness Back exam: Present: normal inspection Neurological exam: Present: alert, oriented X3, CN II-XII intact Psychiatric exam: Present: normal affect, normal mood Skin exam: Present: warm, dry, intact, normal color. Absent: rash Course Vital Signs 09/30/20 09/30/20 09/30/20 06:34 06:56 07:17 Temperature 97.6 F Pulse Rate 37 L 37 L 36 L Respiratory 14 14 18 Rate Blood Pressure 82/40 116/40 107/50 O2 Sat by Pulse 96 98 93 L Oximetry 09/30/20 09/30/20 09/30/20 07:51 08:00 08:03 Temperature Pulse Rate 34 L 35 L 35 L Respiratory 18 20 Rate Blood Pressure 94/37 95/35 O2 Sat by Pulse 97 98 Oximetry 09/30/20 09/30/20 08:32 09:29 Temperature Pulse Rate 35 L Respiratory 29 H Rate Blood Pressure 109/37 O2 Sat by Pulse Oximetry - Reevaluation(s) Reevaluation #1: 09/30/20 06:42 Medical records reviewed Reevaluation #2: 09/30/20 06:42 Per EMS patient did have a good response to atropine - Consultations Consultation #1: Spoke with ICU regarding admission, they are agreeable, spoke with Dr. Fleming who agrees to admit this patient EKG Findings - EKG Comments: EKG Findings:: EKG shows bradycardia of 34, QRS 96 QTc 381 Medical Decision Making - Medical Decision Making 80 female DF for evaluation patient found be severely dehydrated significant bradycardia with renal failure and hyperkalemia. Patient treated for hyperkalemia currently, will be admitted for dialysis, ICU for cardiopulmonary support - Lab Data Result diagrams: 09/30/20 06:49 09/30/20 15:45 Lab Results 09/30/20 09/30/20 09/30/20 Range/Units 06:41 06:49 06:49 WBC 6.9 (3.8-10.6) k/uL RBC 3.37 L (3.80-5.40) m/uL Hgb 9.4 L (11.4-16.0) gm/dL Hct 30.9 L (34.0-46.0) % MCV 91.7 (80.0-100.0) fL MCH 28.0 (25.0-35.0) pg MCHC 30.6 L (31.0-37.0) g/dL RDW 15.0 (11.5-15.5) % Plt Count 289 (150-450) k/uL MPV 7.5 Neutrophils % 74 % Lymphocytes % 10 % Monocytes % 9 % Eosinophils % 4 % Basophils % 1 % Neutrophils # 5.2 (1.3-7.7) k/uL Lymphocytes # 0.7 L (1.0-4.8) k/uL Monocytes # 0.6 (0-1.0) k/uL Eosinophils # 0.3 (0-0.7) k/uL Basophils # 0.1 (0-0.2) k/uL Hypochromasia Marked PT 10.5 (9.0-12.0) sec INR 1.0 (<1.2) APTT 22.3 (22.0-30.0) sec Sodium (137-145) mmol/L Potassium (3.5-5.1) mmol/L Chloride (98-107) mmol/L Carbon Dioxide (22-30) mmol/L Anion Gap mmol/L BUN (7-17) mg/dL Creatinine (0.52-1.04) mg/dL Est GFR (CKD-EPI)AfAm (>60 ml/min/1.73 sqM) Est GFR (CKD-EPI)NonAf (>60 ml/min/1.73 sqM) Glucose (74-99) mg/dL POC Glucose (mg/dL) 116 H (75-99) mg/dL POC Glu Packager ID Corey Fritz Plasma Lactic Acid Yvan (0.7-2.0) mmol/L Calcium (8.4-10.2) mg/dL Ionized Calcium Martín (4.5-5.3) mg/dL Phosphorus (2.5-4.5) mg/dL Magnesium (1.6-2.3) mg/dL Total Bilirubin (0.2-1.3) mg/dL AST (14-36) U/L ALT (4-34) U/L Alkaline Phosphatase (38-126) U/L Lactate Dehydrogenase (313-618) U/L Creatine Kinase (30-135) U/L CK-MB (CK-2) (0.0-2.4) ng/mL Troponin I (0.000-0.034) ng/mL C-Reactive Protein (<10.0) mg/L NT-Pro-B Natriuret Pep pg/mL Total Protein (6.3-8.2) g/dL Albumin (3.5-5.0) g/dL TSH (0.465-4.680) mIU/L Free T4 (0.78-2.19) ng/dL Free T3 pg/mL (2.8-5.3) pg/ml 09/30/20 09/30/20 09/30/20 Range/Units 06:49 06:49 06:49 WBC (3.8-10.6) k/uL RBC (3.80-5.40) m/uL Hgb (11.4-16.0) gm/dL Hct (34.0-46.0) % MCV (80.0-100.0) fL MCH (25.0-35.0) pg MCHC (31.0-37.0) g/dL RDW (11.5-15.5) % Plt Count (150-450) k/uL MPV Neutrophils % % Lymphocytes % % Monocytes % % Eosinophils % % Basophils % % Neutrophils # (1.3-7.7) k/uL Lymphocytes # (1.0-4.8) k/uL Monocytes # (0-1.0) k/uL Eosinophils # (0-0.7) k/uL Basophils # (0-0.2) k/uL Hypochromasia PT (9.0-12.0) sec INR (<1.2) APTT (22.0-30.0) sec Sodium 135 L (137-145) mmol/L Potassium 9.1 H* (3.5-5.1) mmol/L Chloride 117 H (98-107) mmol/L Carbon Dioxide 14 L (22-30) mmol/L Anion Gap 4 mmol/L BUN 49 H (7-17) mg/dL Creatinine 2.24 H (0.52-1.04) mg/dL Est GFR (CKD-EPI)AfAm 23 (>60 ml/min/1.73 sqM) Est GFR (CKD-EPI)NonAf 20 (>60 ml/min/1.73 sqM) Glucose 119 H (74-99) mg/dL POC Glucose (mg/dL) (75-99) mg/dL POC Glu Packager ID Plasma Lactic Acid Yvan 1.1 (0.7-2.0) mmol/L Calcium 8.7 (8.4-10.2) mg/dL Ionized Calcium Martín 5.7 H (4.5-5.3) mg/dL Phosphorus 6.5 H (2.5-4.5) mg/dL Magnesium 2.7 H (1.6-2.3) mg/dL Total Bilirubin 0.4 (0.2-1.3) mg/dL AST 56 H (14-36) U/L ALT 18 (4-34) U/L Alkaline Phosphatase 120 (38-126) U/L Lactate Dehydrogenase (313-618) U/L Creatine Kinase 195 H (30-135) U/L CK-MB (CK-2) 3.9 H (0.0-2.4) ng/mL Troponin I <0.012 (0.000-0.034) ng/mL C-Reactive Protein (<10.0) mg/L NT-Pro-B Natriuret Pep pg/mL Total Protein 5.6 L (6.3-8.2) g/dL Albumin 2.8 L (3.5-5.0) g/dL TSH 7.130 H (0.465-4.680) mIU/L Free T4 1.68 (0.78-2.19) ng/dL Free T3 pg/mL 3.7 (2.8-5.3) pg/ml 09/30/20 09/30/20 Range/Units 06:49 06:49 WBC (3.8-10.6) k/uL RBC (3.80-5.40) m/uL Hgb (11.4-16.0) gm/dL Hct (34.0-46.0) % MCV (80.0-100.0) fL MCH (25.0-35.0) pg MCHC (31.0-37.0) g/dL RDW (11.5-15.5) % Plt Count (150-450) k/uL MPV Neutrophils % % Lymphocytes % % Monocytes % % Eosinophils % % Basophils % % Neutrophils # (1.3-7.7) k/uL Lymphocytes # (1.0-4.8) k/uL Monocytes # (0-1.0) k/uL Eosinophils # (0-0.7) k/uL Basophils # (0-0.2) k/uL Hypochromasia PT (9.0-12.0) sec INR (<1.2) APTT (22.0-30.0) sec Sodium (137-145) mmol/L Potassium (3.5-5.1) mmol/L Chloride (98-107) mmol/L Carbon Dioxide (22-30) mmol/L Anion Gap mmol/L BUN (7-17) mg/dL Creatinine (0.52-1.04) mg/dL Est GFR (CKD-EPI)AfAm (>60 ml/min/1.73 sqM) Est GFR (CKD-EPI)NonAf (>60 ml/min/1.73 sqM) Glucose (74-99) mg/dL POC Glucose (mg/dL) (75-99) mg/dL POC Glu Packager ID Plasma Lactic Acid Yvan (0.7-2.0) mmol/L Calcium (8.4-10.2) mg/dL Ionized Calcium Martín (4.5-5.3) mg/dL Phosphorus (2.5-4.5) mg/dL Magnesium (1.6-2.3) mg/dL Total Bilirubin (0.2-1.3) mg/dL AST (14-36) U/L ALT (4-34) U/L Alkaline Phosphatase (38-126) U/L Lactate Dehydrogenase 472 (313-618) U/L Creatine Kinase (30-135) U/L CK-MB (CK-2) (0.0-2.4) ng/mL Troponin I (0.000-0.034) ng/mL C-Reactive Protein 9.1 (<10.0) mg/L NT-Pro-B Natriuret Pep 2200 pg/mL Total Protein (6.3-8.2) g/dL Albumin (3.5-5.0) g/dL TSH (0.465-4.680) mIU/L Free T4 (0.78-2.19) ng/dL Free T3 pg/mL (2.8-5.3) pg/ml - Radiology Data Radiology results: report reviewed (Chest x-ray and x-ray pelvis negative for acute disease), image reviewed Critical Care Time Critical Care Time: Yes Total Critical Care Time: 65 Disposition Clinical Impression: Hyperkalemia, HUBER (acute kidney injury), Anemia, Bradycardia Disposition: ADMITTED IP TO THIS HOSP Condition: Critical Is patient prescribed a controlled substance at d/c from ED?: No
[2020-09-30 06:52] LABS: Glucose,Whole Blood 116 mg/dL (75-99)
[2020-09-30 07:18] LABS: Basophils # (A) 0.1 k/uL (0-0.2); Basophils % (A) 1 %; Eosinophils # (A) 0.3 k/uL (0-0.7); Eosinophils % (A) 4 %; HCT 30.9 % (34.0-46.0); HGB 9.4 gm/dL (11.4-16.0); Hypochromasia Marked; Lymphocytes # (A) 0.7 k/uL (1.0-4.8); Lymphocytes % (A) 10 %; MCHC 30.6 g/dL (31.0-37.0); MCV 91.7 fL (80.0-100.0); Mean Platelet Volume 7.5; Monocytes # (A) 0.6 k/uL (0-1.0); Monocytes % (A) 9 %; Neutrophils # (A) 5.2 k/uL (1.3-7.7); Neutrophils % (A) 74 %; Platelet Count 289 k/uL (150-450); RBC 3.37 m/uL (3.80-5.40); WBC 6.9 k/uL (3.8-10.6)
[2020-09-30 07:25] LABS: Ionized Calcium 5.7 mg/dL (4.5-5.3)
[2020-09-30 07:33] LABS: Partial Thromboplastin Time 22.3 sec (22.0-30.0); Prothrombin Time 10.5 sec (9.0-12.0)
[2020-09-30 07:41] LABS: Albumin 2.8 g/dL (3.5-5.0); Calcium 8.7 mg/dL (8.4-10.2); Magnesium 2.7 mg/dL (1.6-2.3); Phosphorus 6.5 mg/dL (2.5-4.5); Total Bilirubin 0.4 mg/dL (0.2-1.3); Total Protein 5.6 g/dL (6.3-8.2)
[2020-09-30 07:49] LABS: Potassium 9.1 mmol/L (3.5-5.1)
[2020-09-30] MEDS ORDERED: CALCIUM GLUCONATE 1 GM in SODIUM CHLORIDE 0.9% 100 ML IVPB ONE ×3 (07:51→17:44)
[2020-09-30] MEDS ORDERED: DEXTROSE 50% SYRINGE 50 ML IVP ONE ×3 (07:51→11:07)
[2020-09-30] MEDS ORDERED: ALBUTEROL NEB (CONC) 2.5 MG/0.5 ML INHALATION ONE (07:51)
[2020-09-30] MEDS ORDERED: SODIUM BICARB 8.4% 50 ML SYR (1 MEQ/ML) IV ONE ×2 (07:51→07:55)
--- NOTE | 2020-09-30 07:51 | XR ---
EXAMINATION TYPE: XR chest 1V DATE OF EXAM: 09/30/2020 COMPARISON: 12/05/2019 INDICATION: Fall, pain TECHNIQUE: Single frontal view of the chest is obtained. FINDINGS: The heart size is normal. The pulmonary vasculature is normal. There is some fullness of the right hilar region. Underlying mass is not excluded. No pneumothorax is evident. No displaced rib fractures are identified. IMPRESSION: 1. No acute posttraumatic changes. 2. Increasing problems within the right hilar region, additional workup is recommended.
[2020-09-30] MEDS ORDERED: SODIUM CHLORIDE 0.9% 500 ML 500 ML IV STA (07:52)
--- NOTE | 2020-09-30 07:52 | XR ---
EXAMINATION TYPE: XR pelvis AP view DATE OF EXAM: 09/30/2020 COMPARISON: None HISTORY: Fall, pain TECHNIQUE: AP pelvis FINDINGS: Femoral heads articulate with the acetabulum. There is narrowing joint spaces of bilateral hips. Vascular calcification is noted. Sacroiliac joints are normal. Nonspecific bowel gas is present . No acute fractures are evident. IMPRESSION: 1. No acute fractures AP pelvis
[2020-09-30] MEDS ORDERED: NALOXONE 0.4 MG/ML 1 ML VIAL IV PRN (07:53)
[2020-09-30 07:56] LABS: Creatine Kinase MB 3.9 ng/mL (0.0-2.4); Troponin I <0.012 ng/mL (0.000-0.034)
[2020-09-30 07:59] LABS: T4, Free (Free Thyroxine) 1.68 ng/dL (0.78-2.19)
[2020-09-30 08:18] LABS: C Reactive Protein 9.1 mg/L (<10.0)
[2020-09-30 09:33] LABS: Glucose,Whole Blood 139 mg/dL (75-99)
[2020-09-30 09:56] LABS: Glucose,Whole Blood 98 mg/dL (75-99)
[2020-09-30 11:02] LABS: VBG PH 7.24 (7.31-7.41)
[2020-09-30 11:06] LABS: Glucose,Whole Blood 48 mg/dL (75-99)
[2020-09-30] MEDS: LEVOTHYROXINE IVP 100 MCG/5 ML VIAL IV SCH (11:09)
[2020-09-30 11:29] LABS: Glucose,Whole Blood 480 mg/dL (75-99)
[2020-09-30 11:31] LABS: Glucose,Whole Blood 205 mg/dL (75-99)
[2020-09-30] MEDS ORDERED: SODIUM POLYSTYRENE SULFONATE 30 GM/120 ML BOTTLE RECTAL STA (11:34)
[2020-09-30 12:33] LABS: Glucose,Whole Blood 84 mg/dL (75-99)
--- NOTE | 2020-09-30 12:42 | P.CNPUL ---
History of Present Illness Consult date: 09/30/20 Requesting physician: Faisal Fleming Reason for consult: other Chief complaint: Hyperkalemia. ICU management. History of present illness: 80-year-old female, brought into the emergency room, to be evaluated. She apparently was found to be on the floor at home, and was discovered by a family member. It was unclear as to how long she was down. Apparently she was able to call her daughter for assistance to came to help her. EMS was then called. She apparently did not have any major complaints initially, although she was found to be incontinent of stool and urine. She apparently was quite bradycardic and Route, and was evaluated in the emergency room by one of the ER physicians. In addition, additional history included weakness, with lack of energy. When I spoke to the ER physician, the patient was bradycardic, hypotensive, and the potassium was 9.1. Repeat potassium after treatment is now 6.5. The patient's currently in the intensive care unit. She's getting saline at 130 mL an hour, and O2 by nasal cannula at 2 L. We did add some Synthroid to her regimen as her thyroid-stimulating hormone was elevated. Her creatinine was 2.24. White count was 6.9, hemoglobin 9.4, hematocrit 30.9, and platelet count 289,000. PT, INR, and PTT were normal. Venous blood gas showed a pH of 7.24. Sodium 135 potassium 9.1, repeat 6.5, chlorides 117, CO2 14, anion gap 4, and BUN of 49 with creatinine of 2.24. CK was 195, troponin less than 0.012, N-terminal pro BNP 2200, and TSH was 7.130. COVID 19 testing was negative. Review of Systems REVIEW OF SYSTEMS: CONSTITUTIONAL: No additional history can be obtained from this patient other than what was mentioned in the history of the present illness. NEUROLOGIC: [ Negative.] HEENT: [ Negative.] CARDIAC: [Negative.] PULMONARY: [Negative.] GI: [Negative.] : [Negative.] RHEUMATOLOGIC: [ Negative.] IMMUNOLOGIC: [ Negative.] ENDOCRINE: [Negative. ] DERMATOLOGIC: [Negative.] Past Medical History Past Medical History: Heart Failure, COPD, Diabetes Mellitus, Hyperlipidemia, Hypertension, Osteoarthritis (OA), Pneumonia, Skin Disorder, Thyroid Disorder Additional Past Medical History / Comment(s): PUL EDEMA, HIATL HERNIA, EDEMA TO LEGS AND BREAKDOWN/BLISTERS TO MARTÍN LEGS, IBS, EDEMA TO BILAT LE'S History of Any Multi-Drug Resistant Organisms: None Reported Past Surgical History: Cholecystectomy, Tonsillectomy Additional Past Surgical History / Comment(s): neck SX REMOVED BENIGN MASS OUT, RT BREAST BX-BENIGN, LASER EYE SX THINKS ON HER RT EYE. Past Anesthesia/Blood Transfusion Reactions: No Reported Reaction Past Psychological History: No Psychological Hx Reported Past Alcohol Use History: None Reported Past Drug Use History: None Reported - Past Family History Father Family Medical History: Hypertension, Myocardial Infarction ([place]) Additional Family Medical History / Comment(s): X3 [place], Mother Family Medical History: Cancer Additional Family Medical History / Comment(s): DIES FROM [place] Medications and Allergies Home Medications Medication Instructions Recorded Confirmed Type Levothyroxine Sodium 100 mcg PO DAILY 10/02/19 09/30/20 History Losartan [Cozaar] 50 mg PO DAILY 10/02/19 09/30/20 History carvediloL [Coreg*] 12.5 mg PO DAILY 10/02/19 09/30/20 History amLODIPine [Norvasc] 10 mg PO DAILY 10/18/19 09/30/20 History Furosemide [Lasix] 40 mg PO DAILY 12/05/19 09/30/20 History Atorvastatin [Lipitor] 40 mg PO DAILY 09/30/20 09/30/20 History Insulin Aspart Protam & Aspart 10 unit SQ HS 09/30/20 09/30/20 History [NovoLOG MIX 70-30 Flexpen] Insulin Aspart Protam & Aspart 28 unit SQ DAILY 09/30/20 09/30/20 History [NovoLOG MIX 70-30 Flexpen] Spironolactone 25 mg PO DAILY 09/30/20 09/30/20 History Allergies Allergy/AdvReac Type Severity Reaction Status Date / Time Penicillins Allergy Rash/Hives Verified 09/30/20 08:28 Physical Exam Osteopathic Statement: *. No significant issues noted on an osteopathic structural exam other than those noted in the History and Physical/Consult. Vitals: Vital Signs Temp Pulse Resp BP Pulse Ox 09/30/20 10:00 38 L 20 98/46 94 L 09/30/20 09:29 29 H 109/37 09/30/20 08:32 35 L 09/30/20 08:03 35 L 09/30/20 08:00 35 L 20 95/35 98 09/30/20 07:51 34 L 18 94/37 97 09/30/20 07:17 97.6 F 36 L 18 107/50 93 L 09/30/20 06:56 37 L 14 116/40 98 09/30/20 06:34 37 L 14 82/40 96 Intake and Output 09/29/20 09/30/20 09/30/20 22:59 06:59 14:59 Intake Total 260 Output Total 0 Balance 260 Intake: IV 260 Sodium Chloride 0.9% 1, 260 000 ml @ 130 mls/hr IV . Q7H42M STA Rx#:[id number] Output: Urine 0 Other: Weight 104.326 kg No acute distress, oriented 3. Nasal O2 at 2 L noted. HEENT examination is grossly unremarkable. Mucous membranes are moist. No oral lesions. Neck supple. Full range of motion. No adenopathy thyromegaly or neck vein distention. Cardiovascular examination reveals regular rhythm rate. S1-S2 normal. No S3 or S4. No discernible murmur noted. Heart rate 38 bpm. Lungs reveal mostly clear breath sounds. Her sounds are equal bilaterally. Sca ttered mild rhonchi were noted. No wheezes or crackles. Abdomen soft bowel sounds are heard. No masses or tenderness. Extremities are intact. No cyanosis clubbing or edema. Skin is without rash or lesion. Neurologic examination is brief but nonfocal. Results - Laboratory Findings CBC and BMP: 09/30/20 06:49 09/30/20 10:30 PT/INR, D-dimer PT 10.5 sec (9.0-12.0) 09/30/20 06:49 INR 1.0 (<1.2) 09/30/20 06:49 Abnormal lab findings: Abnormal Labs 09/30/20 09/30/20 09/30/20 06:41 06:49 06:49 RBC 3.37 L Hgb 9.4 L Hct 30.9 L MCHC 30.6 L Lymphocytes # 0.7 L VBG pH VBG pCO2 VBG HCO3 Sodium 135 L Potassium 9.1 H* Chloride 117 H Carbon Dioxide 14 L BUN 49 H Creatinine 2.24 H Glucose 119 H POC Glucose (mg/dL) 116 H Ionized Calcium Martín 5.7 H Phosphorus 6.5 H Magnesium 2.7 H AST 56 H Creatine Kinase 195 H CK-MB (CK-2) Total Protein 5.6 L Albumin 2.8 L TSH 7.130 H 09/30/20 09/30/20 09/30/20 06:49 09:30 10:30 RBC Hgb Hct MCHC Lymphocytes # VBG pH 7.24 L VBG pCO2 30 L VBG HCO3 12 L Sodium Potassium Chloride Carbon Dioxide BUN Creatinine Glucose POC Glucose (mg/dL) 139 H Ionized Calcium Martín Phosphorus Magnesium AST Creatine Kinase CK-MB (CK-2) 3.9 H Total Protein Albumin TSH 09/30/20 09/30/20 09/30/20 10:30 11:05 11:27 RBC Hgb Hct MCHC Lymphocytes # VBG pH VBG pCO2 VBG HCO3 Sodium Potassium 6.5 H* Chloride Carbon Dioxide BUN Creatinine Glucose POC Glucose (mg/dL) 48 L 480 H Ionized Calcium Martín Phosphorus Magnesium AST Creatine Kinase CK-MB (CK-2) Total Protein Albumin TSH 09/30/20 11:29 RBC Hgb Hct MCHC Lymphocytes # VBG pH VBG pCO2 VBG HCO3 Sodium Potassium Chloride Carbon Dioxide BUN Creatinine Glucose POC Glucose (mg/dL) 205 H Ionized Calcium Martín Phosphorus Magnesium AST Creatine Kinase CK-MB (CK-2) Total Protein Albumin TSH - Diagnostic Findings Chest x-ray: image reviewed Assessment and Plan Assessment: Junctional bradycardia with hypotension, secondary to hyperkalemia. Hyperkalemia, with a potassium initially of 9.1, repeat 6.5. History of CHF. History of COPD. History of diabetes mellitus. History of hyperlipidemia. History of essential hypertension. History of DJD. History of pneumonia. History of hypothyroidism. Irritable bowel syndrome. Questionable right hilar mass on chest x-ray. Plan: Plan dated 09/30/2020. The patient's potassium has come down from 9.1 to 6.5. Nephrology has been consulted. The patient remains with a significant bradycardia. She will need an outpatient workup for potential right hilar mass. No additional recommendations are made at this time. We will continue to follow. Initially, the patient was to be started on norepinephrine but apparently the patient is cu rrently not on norepinephrine. We did add back some Synthroid to her regimen. Additional recommendations and suggestions are forthcoming. Time with Patient: Greater than 30
[2020-09-30] MEDS: DEXTROSE 5% IN WATER 1,000 ML with SODIUM BICARB (1 MEQ/ML) 150 ML IV SCH ×2 (12:50→23:41)
[2020-09-30 13:39] LABS: Glucose,Whole Blood 186 mg/dL (75-99)
[2020-09-30 15:01] LABS: Glucose,Whole Blood 97 mg/dL (75-99)
[2020-09-30 16:20] LABS: Glucose,Whole Blood 110 mg/dL (75-99)
[2020-09-30] MEDS: IPRATROPIUM-ALBUTEROL 3 ML NEB INHALATION PRN (16:51)
[2020-09-30 17:33] LABS: Glucose,Whole Blood 115 mg/dL (75-99)
[2020-09-30 18:44] LABS: Glucose,Whole Blood 118 mg/dL (75-99)
--- NOTE | 2020-09-30 18:56 | P.GSCN ---
History of Present Illness History of present illness: 80-year-old white female, I was consulted for urgent dialysis catheter placement for dialysis. Patient has history of hypertension, coronary artery disease hyperlipidemia acute kidney injury for placement of the dialysis catheter. Neck examination neck is supple no bruit appreciated Chest clear first and second sound normal good entry both lungs Abdomen soft nontender Vascular patient has a fungal infection in her right groin area femorals 1+ we decided to place a dialysis catheter jugular vein risk and complication discussed Past Medical History Past Medical History: Heart Failure, COPD, Diabetes Mellitus, Hyperlipidemia, Hypertension, Osteoarthritis (OA), Pneumonia, Skin Disorder, Thyroid Disorder Additional Past Medical History / Comment(s): PUL EDEMA, HIATL HERNIA, EDEMA TO LEGS AND BREAKDOWN/BLISTERS TO MARTÍN LEGS, IBS, EDEMA TO BILAT LE'S History of Any Multi-Drug Resistant Organisms: None Reported Past Surgical History: Cholecystectomy, Tonsillectomy Additional Past Surgical History / Comment(s): neck SX REMOVED BENIGN MASS OUT, RT BREAST BX-BENIGN, LASER EYE SX THINKS ON HER RT EYE. Past Anesthesia/Blood Transfusion Reactions: No Reported Reaction Smoking Status: Former smoker - Past Family History Father Family Medical History: Hypertension, Myocardial Infarction ([place]) Additional Family Medical History / Comment(s): X3 [place], Mother Family Medical History: Cancer Additional Family Medical History / Comment(s): DIES FROM [place] Medications and Allergies Home Medications Medication Instructions Recorded Confirmed Type Levothyroxine Sodium 100 mcg PO DAILY 10/02/19 09/30/20 History Losartan [Cozaar] 50 mg PO DAILY 10/02/19 09/30/20 History carvediloL [Coreg*] 12.5 mg PO DAILY 10/02/19 09/30/20 History amLODIPine [Norvasc] 10 mg PO DAILY 10/18/19 09/30/20 History Furosemide [Lasix] 40 mg PO DAILY 12/05/19 09/30/20 History Atorvastatin [Lipitor] 40 mg PO DAILY 09/30/20 09/30/20 History Insulin Aspart Protam & Aspart 10 unit SQ HS 09/30/20 09/30/20 History [NovoLOG MIX 70-30 Flexpen] Insulin Aspart Protam & Aspart 28 unit SQ DAILY 09/30/20 09/30/20 History [NovoLOG MIX 70-30 Flexpen] Spironolactone 25 mg PO DAILY 09/30/20 09/30/20 History Allergies Allergy/AdvReac Type Severity Reaction Status Date / Time Penicillins Allergy Rash/Hives Verified 09/30/20 08:28 Surgical - Exam Vital Signs Pulse Resp BP Pulse Ox 37 L 14 82/40 96 09/30/20 06:34 09/30/20 06:34 09/30/20 06:34 09/30/20 06:34 Results - Labs 09/30/20 06:49 09/30/20 15:45 Abnormal Lab Results - Last 24 Hours (Table) 09/30/20 09/30/20 09/30/20 Range/Units 06:41 06:49 06:49 RBC 3.37 L (3.80-5.40) m/uL Hgb 9.4 L (11.4-16.0) gm/dL Hct 30.9 L (34.0-46.0) % MCHC 30.6 L (31.0-37.0) g/dL Lymphocytes # 0.7 L (1.0-4.8) k/uL VBG pH (7.31-7.41) VBG pCO2 (37-51) mmHg VBG HCO3 (24-28) mmol/L Sodium 135 L (137-145) mmol/L Potassium 9.1 H* (3.5-5.1) mmol/L Chloride 117 H (98-107) mmol/L Carbon Dioxide 14 L (22-30) mmol/L BUN 49 H (7-17) mg/dL Creatinine 2.24 H (0.52-1.04) mg/dL Glucose 119 H (74-99) mg/dL POC Glucose (mg/dL) 116 H (75-99) mg/dL Ionized Calcium Martín 5.7 H (4.5-5.3) mg/dL Phosphorus 6.5 H (2.5-4.5) mg/dL Magnesium 2.7 H (1.6-2.3) mg/dL AST 56 H (14-36) U/L Creatine Kinase 195 H (30-135) U/L CK-MB (CK-2) (0.0-2.4) ng/mL Total Protein 5.6 L (6.3-8.2) g/dL Albumin 2.8 L (3.5-5.0) g/dL TSH 7.130 H (0.465-4.680) mIU/L 09/30/20 09/30/20 09/30/20 Range/Units 06:49 09:30 10:30 RBC (3.80-5.40) m/uL Hgb (11.4-16.0) gm/dL Hct (34.0-46.0) % MCHC (31.0-37.0) g/dL Lymphocytes # (1.0-4.8) k/uL VBG pH 7.24 L (7.31-7.41) VBG pCO2 30 L (37-51) mmHg VBG HCO3 12 L (24-28) mmol/L Sodium (137-145) mmol/L Potassium (3.5-5.1) mmol/L Chloride (98-107) mmol/L Carbon Dioxide (22-30) mmol/L BUN (7-17) mg/dL Creatinine (0.52-1.04) mg/dL Glucose (74-99) mg/dL POC Glucose (mg/dL) 139 H (75-99) mg/dL Ionized Calcium Martín (4.5-5.3) mg/dL Phosphorus (2.5-4.5) mg/dL Magnesium (1.6-2.3) mg/dL AST (14-36) U/L Creatine Kinase (30-135) U/L CK-MB (CK-2) 3.9 H (0.0-2.4) ng/mL Total Protein (6.3-8.2) g/dL Albumin (3.5-5.0) g/dL TSH (0.465-4.680) mIU/L 09/30/20 09/30/20 09/30/20 Range/Units 10:30 11:05 11:27 RBC (3.80-5.40) m/uL Hgb (11.4-16.0) gm/dL Hct (34.0-46.0) % MCHC (31.0-37.0) g/dL Lymphocytes # (1.0-4.8) k/uL VBG pH (7.31-7.41) VBG pCO2 (37-51) mmHg VBG HCO3 (24-28) mmol/L Sodium (137-145) mmol/L Potassium 6.5 H* (3.5-5.1) mmol/L Chloride (98-107) mmol/L Carbon Dioxide (22-30) mmol/L BUN (7-17) mg/dL Creatinine (0.52-1.04) mg/dL Glucose (74-99) mg/dL POC Glucose (mg/dL) 48 L 480 H (75-99) mg/dL Ionized Calcium Martín (4.5-5.3) mg/dL Phosphorus (2.5-4.5) mg/dL Magnesium (1.6-2.3) mg/dL AST (14-36) U/L Creatine Kinase (30-135) U/L CK-MB (CK-2) (0.0-2.4) ng/mL Total Protein (6.3-8.2) g/dL Albumin (3.5-5.0) g/dL TSH (0.465-4.680) mIU/L 09/30/20 09/30/20 09/30/20 Range/Units 11:29 13:37 15:45 RBC (3.80-5.40) m/uL Hgb (11.4-16.0) gm/dL Hct (34.0-46.0) % MCHC (31.0-37.0) g/dL Lymphocytes # (1.0-4.8) k/uL VBG pH (7.31-7.41) VBG pCO2 (37-51) mmHg VBG HCO3 (24-28) mmol/L Sodium (137-145) mmol/L Potassium 7.4 H* (3.5-5.1) mmol/L Chloride (98-107) mmol/L Carbon Dioxide (22-30) mmol/L BUN (7-17) mg/dL Creatinine (0.52-1.04) mg/dL Glucose (74-99) mg/dL POC Glucose (mg/dL) 205 H 186 H (75-99) mg/dL Ionized Calcium Martín (4.5-5.3) mg/dL Phosphorus (2.5-4.5) mg/dL Magnesium (1.6-2.3) mg/dL AST (14-36) U/L Creatine Kinase (30-135) U/L CK-MB (CK-2) (0.0-2.4) ng/mL Total Protein (6.3-8.2) g/dL Albumin (3.5-5.0) g/dL TSH (0.465-4.680) mIU/L 09/30/20 09/30/20 09/30/20 Range/Units 16:18 17:31 18:42 RBC (3.80-5.40) m/uL Hgb (11.4-16.0) gm/dL Hct (34.0-46.0) % MCHC (31.0-37.0) g/dL Lymphocytes # (1.0-4.8) k/uL VBG pH (7.31-7.41) VBG pCO2 (37-51) mmHg VBG HCO3 (24-28) mmol/L Sodium (137-145) mmol/L Potassium (3.5-5.1) mmol/L Chloride (98-107) mmol/L Carbon Dioxide (22-30) mmol/L BUN (7-17) mg/dL Creatinine (0.52-1.04) mg/dL Glucose (74-99) mg/dL POC Glucose (mg/dL) 110 H 115 H 118 H (75-99) mg/dL Ionized Calcium Martín (4.5-5.3) mg/dL Phosphorus (2.5-4.5) mg/dL Magnesium (1.6-2.3) mg/dL AST (14-36) U/L Creatine Kinase (30-135) U/L CK-MB (CK-2) (0.0-2.4) ng/mL Total Protein (6.3-8.2) g/dL Albumin (3.5-5.0) g/dL TSH (0.465-4.680) mIU/L Diabetes panel 09/30/20 09/30/20 09/30/20 Range/Units 06:49 10:30 15:45 Sodium 135 L (137-145) mmol/L Potassium 9.1 H* 6.5 H* 7.4 H* (3.5-5.1) mmol/L Chloride 117 H (98-107) mmol/L Carbon Dioxide 14 L (22-30) mmol/L BUN 49 H (7-17) mg/dL Creatinine 2.24 H (0.52-1.04) mg/dL Glucose 119 H (74-99) mg/dL Calcium 8.7 (8.4-10.2) mg/dL AST 56 H (14-36) U/L ALT 18 (4-34) U/L Alkaline Phosphatase 120 (38-126) U/L Total Protein 5.6 L (6.3-8.2) g/dL Albumin 2.8 L (3.5-5.0) g/dL Thyroid panel 09/30/20 Range/Units 06:49 TSH 7.130 H (0.465-4.680) mIU/L Calcium panel 09/30/20 Range/Units 06:49 Calcium 8.7 (8.4-10.2) mg/dL Ionized Calcium Martín 5.7 H (4.5-5.3) mg/dL Phosphorus 6.5 H (2.5-4.5) mg/dL Albumin 2.8 L (3.5-5.0) g/dL Pituitary panel 09/30/20 09/30/20 09/30/20 Range/Units 06:49 10:30 15:45 Sodium 135 L (137-145) mmol/L Potassium 9.1 H* 6.5 H* 7.4 H* (3.5-5.1) mmol/L Chloride 117 H (98-107) mmol/L Carbon Dioxide 14 L (22-30) mmol/L BUN 49 H (7-17) mg/dL Creatinine 2.24 H (0.52-1.04) mg/dL Glucose 119 H (74-99) mg/dL Calcium 8.7 (8.4-10.2) mg/dL TSH 7.130 H (0.465-4.680) mIU/L Adrenal panel 09/30/20 09/30/20 09/30/20 Range/Units 06:49 10:30 15:45 Sodium 135 L (137-145) mmol/L Potassium 9.1 H* 6.5 H* 7.4 H* (3.5-5.1) mmol/L Chloride 117 H (98-107) mmol/L Carbon Dioxide 14 L (22-30) mmol/L BUN 49 H (7-17) mg/dL Creatinine 2.24 H (0.52-1.04) mg/dL Glucose 119 H (74-99) mg/dL Calcium 8.7 (8.4-10.2) mg/dL Total Bilirubin 0.4 (0.2-1.3) mg/dL AST 56 H (14-36) U/L ALT 18 (4-34) U/L Alkaline Phosphatase 120 (38-126) U/L Total Protein 5.6 L (6.3-8.2) g/dL Albumin 2.8 L (3.5-5.0) g/dL
--- NOTE | 2020-09-30 18:59 | P.PCN ---
Description of Procedure: Procedure note preoperative diagnoses is acute chronic renal failure Postoperative same Procedure ultrasound-guided dialysis catheter placed under general approach Procedure right neck was prepped and draped applied used an manner. 1% lidocaine for infected neck area ultrasound-guided micropuncture introduced to the right jugular vein micropuncture guidewire was passed and 4-Georgian dilator advanced top of the guidewire. After that we passed a regular guidewire without any resistance dilator was advanced on the top of guidewire then placed triple- lumen dialysis catheter on the top of the guidewire guidewire was removed free flow was noted flushed with heparin saline and Hep-Lock and secured with 3-0 nylon patient are to the procedure well recommended to have a stat chest x-ray
--- NOTE | 2020-09-30 19:03 | XR ---
EXAMINATION TYPE: XR chest 1V portable DATE OF EXAM: 09/30/2020 COMPARISON: Today HISTORY: Check line placement There is blunting left costophrenic angle. There is evidence for some infiltrate at the lung bases. There is no pneumothorax. There is mild pulmonary vascular congestion. Thoracic aorta is atheromatous . I see no evidence of a catheter. There is some tubing over the left and right side of the neck. Loc ation is not clear. There is possible left side jugular catheter with tip extending towards the angle of the mandible. IMPRESSION: There is some pleural fluid and infiltrate at the lung bases increased compared to exam t his morning. There is probably some heart failure.
[2020-09-30 19:18] LABS: Glucose,Whole Blood 190 mg/dL (75-99)
[2020-09-30 19:55] LABS: Glucose,Whole Blood 177 mg/dL (75-99)
--- NOTE | 2020-09-30 20:34 | HP ---
HISTORY AND PHYSICAL CHIEF COMPLAINT: Fall and syncope. HISTORY OF PRESENT ILLNESS: This is another admission for this 80-year-old white female who is fairly noncompliant. She is a long-standing diabetic with hypertension and is fairly noncompliant and unmotivated. She apparently fell and was able to summon someone to come and help her and she is brought to the emergency room where she was found to have a potassium of over 9. She had a bradycardia which may have been junctional. She denied chest pain, focal neurologic problems, difficulty with vision and hearing, headache, abdominal pain, nausea, vomiting, hematemesis, melena, hematochezia, urinary complaints, dysuria, hematuria, etc. Past medical history, family history and personal and social histories are otherwise unremarkable. PHYSICAL EXAMINATION: Blood pressure is 116/64 with a pulse of 50, respirations of 35, and she is afebrile. In general she appeared to be dehydrated. Head ears, eyes, nose, mouth and throat were normal except for dehydration. Neck was supple. Chest was clear to auscultation. Cardiac exam demonstrated bradycardia. Abdomen was soft and nontender without any masses or visceromegaly. Extremities were normal. Neurologically she seemed to be intact. She was awake and alert. IMPRESSION: 1. Hyperkalemia. 2. Bradycardia with possible junctional rhythm. PLAN: 1. Bed rest. 2. Control hyperkalemia. 3. Look at discharge planning. FAHAD / ARNALDO: [id number] /
--- NOTE | 2020-09-30 20:47 | CONS ---
CONSULTATION This is an 80-year-old elderly lady with a type 2 diabetes, hypertension, and chronic kidney disease, who came through the emergency room early this morning and was found to be at home on the floor with an unknown down time and she was able to call her daughter for assistance apparently. She did not have any major complaints in the ER but she was found to be incontinent of stool and urine. She was quite bradycardic and the potassium was 9.1 and the repeat potassium was 6.5. She is in a junctional rhythm with a QRS that is not very wide. Her creatinine is 2.24. Hemoglobin is 9.4. I was consulted for hyperkalemia. The patient appears to be clinically dehydrated. I have given her bicarbonate and Kayexalate. Potassium came down to 6.5, but it again went up to 7.2. Heart rate went from 35 with a junctional rhythm to 45. However, the best situation would be dialysis and she is going to have that today. Very limited history is available directly from the patient, most of the information was from the chart. PAST MEDICAL HISTORY: Remarkable for CHF, COPD, diabetes, hypertension, hyperlipidemia, osteoarthritis, and thyroid disease. She has also chronic kidney disease, details of which are unavailable. She is status post cholecystectomy and tonsillectomy. MEDICATIONS: At home include losartan 50 mg daily, carvedilol 12.5 mg b.i.d., Norvasc 10 mg daily, Lasix 40 mg daily, Lipitor 40 mg daily, insulin, levothyroxine 100 mcg daily, Aldactone 25 mg daily. PHYSICAL EXAMINATION: On examination, blood pressure is 140/70, pulse rate is about 45 per minute, junctional. HEENT: Limited exam is unremarkable. Patient does not seem to follow commands very well. NECK is supple. There is no JVD. I do not hear a carotid bruit. HEART exam reveals S1, S2 heard in a regular fashion, bradycardia noted. There is a short systolic murmur. LUNGS reveal bilateral diminished air entry. ABDOMEN: Soft. LOWER EXTREMITIES reveal diminished pulses. Right lower extremity has probably an ulcer. She has a boot on her right lower extremity. CENTRAL NERVOUS SYSTEM assessment was not performed. IMPRESSION: 1. Severe hyperkalemia with bradycardia. 2. Type 2 diabetes. 3. Hypertension. 4. Hyperlipidemia. 5. Acute kidney injury. RECOMMENDATIONS: I am recommending a nephrology evaluation and dialysis as soon as possible. Patient has not responded to multiple agents to reduce her potassium level. I will also withhold her carvedilol and perform echocardiogram tomorrow and based on findings, make further recommendations. Prognosis remains poor. MMODL / IJN: [id number] /
[2020-09-30 21:10] LABS: Glucose,Whole Blood 142 mg/dL (75-99)
[2020-09-30 21:54] LABS: Glucose,Whole Blood 132 mg/dL (75-99)
[2020-09-30 21:56] LABS: Appearance,Urine Cloudy (Clear); Bacteria,Urine Rare /hpf; Bilirubin,Urine Negative (Negative); Blood,Urine Moderate (Negative); Budding Yeast,Urine Few /hpf; Color,Urine Yellow; Glucose,Urine (UA) Negative (Negative); Granular Casts,Urine 6 /lpf (0); Hyaline Casts,Urine 75 /lpf (0-2); Ketones,Urine Negative (Negative); Leukocyte Esterase,Urine Large (Negative); Mucus,Urine Rare /hpf; Nitrite,Urine Negative (Negative); PH, Urine 5.5 (5.0-8.0); Protein,Urine 1+ (Negative); RBC,Urine 48 /hpf (0-5); Specific Gravity,Urine 1.012 (1.001-1.035); Squamous Epithelial Cell,Urine 4 /hpf (0-4); Urobilinogen,Urine <2.0 mg/dL (<2.0); WBC,Urine 65 /hpf (0-5)
[2020-09-30] MEDS: HYDROcodone/APAP 5-325MG 1 EACH TAB PO PRN (23:39)
[2020-10-01 00:14] LABS: Glucose,Whole Blood 143 mg/dL (75-99)
[2020-10-01 00:26] LABS: Hepatitis B Surface Antigen Non-Reactive (Non-Reactive)
[2020-10-01 00:27] LABS: Hepatitis B Surface AB- Quant 4.7 mIU/mL; Hepatitis B Surface Antibody Non-Reactive (Non-Reactive)
[2020-10-01 01:58] LABS: Glucose,Whole Blood 163 mg/dL (75-99)
[2020-10-01 04:01] LABS: Basophils % (A) 0 %; Eosinophils % (A) 0 %; HGB 9.3 gm/dL (11.4-16.0); Hypochromasia Slight; Lymphocytes # (A) 0.6 k/uL (1.0-4.8); Lymphocytes % (A) 6 %; MCH 28.5 pg (25.0-35.0); MCHC 32.1 g/dL (31.0-37.0); Mean Platelet Volume 8.4; Monocytes # (A) 0.7 k/uL (0-1.0); Monocytes % (A) 6 %; Neutrophils # (A) 9.4 k/uL (1.3-7.7); Neutrophils % (A) 87 %; Platelet Count 260 k/uL (150-450); RBC 3.25 m/uL (3.80-5.40); RDW 15.1 % (11.5-15.5); WBC 10.7 k/uL (3.8-10.6)
[2020-10-01 04:18] LABS: Albumin 2.5 g/dL (3.5-5.0); Calcium 8.5 mg/dL (8.4-10.2); Magnesium 2.2 mg/dL (1.6-2.3); Phosphorus 4.8 mg/dL (2.5-4.5); Total Bilirubin 0.3 mg/dL (0.2-1.3); Total Protein 4.9 g/dL (6.3-8.2)
[2020-10-01 04:22] LABS: Glucose,Whole Blood 180 mg/dL (75-99)
[2020-10-01 06:05] LABS: Glucose,Whole Blood 203 mg/dL (75-99)
[2020-10-01] MEDS ORDERED: DEXTROSE 50% SYRINGE 50 ML IVP STA (06:19)
[2020-10-01] MEDS ORDERED: INSULIN REGULAR 100 UNIT/ML VIAL IV ONE (06:19)
[2020-10-01 07:10] LABS: Glucose,Whole Blood 198 mg/dL (75-99)
--- NOTE | 2020-10-01 07:31 | PN ---
PROGRESS NOTE This is an 80-year-old lady with a history of type 2 diabetes, chronic kidney disease, who came into the ER after being found unresponsive at home with rhabdomyolysis and also hyperkalemia. Yesterday she had dialysis and that made a remarkable improvement. Her potassium is high still at 6.0, but she is in sinus rhythm with a blood pressure of 150/70. She is alert, responds to questions. She feels much better. On reviewing the old chart, her LV systolic function from last fall was actually good. There was mild gradient across the aortic valve. This morning she feels well. She looks very much comfortable. Vitals are stable. Heart rate is about 74 sinus with a normal [place] interval and narrow QRS. Blood pressure is 150/70. There is JVD 1 cm better seen on the left side. Heart exam reveals S1, S2 with ejection systolic murmur at the base. Second heart sound is preserved. Lungs reveal improved air entry. Abdomen is distended. Lower extremities reveal edema and diminished pulses. Central nervous system grossly no motor deficits. IMPRESSION: 1. Hyperkalemia. This condition persists but has improved and clinically patient is doing well after dialysis. 2. Status post hemodialysis. Probably going to have another round of dialysis today. 3. Hypertension. 4. Type 2 diabetes with chronic kidney disease. 5. No evidence to suggest any acute myocardial injury. RECOMMENDATIONS: I am recommending that we initiate amlodipine at 5 mg if the blood pressure is more than 150 systolic and also initiate her on Lipitor 20 mg daily. I will hold the beta blockers for 1 more day. We will check LV function by echo tomorrow. The patient is showing some improvement. MMODL / IJN: [id number] /
[2020-10-01 08:05] LABS: Glucose,Whole Blood 211 mg/dL (75-99)
[2020-10-01] MEDS ORDERED: FUROSEMIDE 10 MG/ML 10 ML VIAL IV STA (08:33)
[2020-10-01] MEDS: LEVOTHYROXINE IVP 100 MCG/5 ML VIAL IV SCH (09:01)
[2020-10-01] MEDS: ATORVASTATIN 20 MG TAB PO SCH (09:02)
[2020-10-01] MEDS: SODIUM CHLORIDE 0.9% 1,000 ML IV SCH (09:02)
[2020-10-01] MEDS: amLODIPine 5 MG TAB PO SCH (09:02)
--- NOTE | 2020-10-01 09:14 | XR ---
EXAMINATION TYPE: XR chest 1V portable DATE OF EXAM: 10/01/2020 COMPARISON: 09/30/2020 INDICATION: CHF short of breath TECHNIQUE: Single frontal view of the chest is obtained. FINDINGS: The heart size is normal. The pulmonary vasculature is upper limits of normal. Mild left basilar infiltrate remains present. Small left pleural effusion is not excluded IMPRESSION: 1. Stable left lower lobe infiltrate and pleural effusion
[2020-10-01 10:09] LABS: Glucose,Whole Blood 230 mg/dL (75-99)
[2020-10-01] MEDS ORDERED: PIPERACILLIN-TAZOBACTAM 3.375 GM in SODIUM CHLORIDE 0.9% 100 ML IVPB STA (10:54)
--- NOTE | 2020-10-01 12:48 | P.PN ---
Subjective Progress Note Date: 10/01/20 Principal diagnosis: Hyperkalemia, bradycardia 80-year-old female, brought into the emergency room, to be evaluated. She apparently was found to be on the floor at home, and was discovered by a family member. It was unclear as to how long she was down. Apparently she was able to call her daughter for assistance to came to help her. EMS was then called. She apparently did not have any major complaints initially, although she was found to be incontinent of stool and urine. She apparently was quite bradycardic and Route, and was evaluated in the emergency room by one of the ER physicians. In addition, additional history included weakness, with lack of energy. When I spoke to the ER physician, the patient was bradycardic, hypotensive, and the potassium was 9.1. Repeat potassium after treatment is now 6.5. The patient's currently in the intensive care unit. She's getting saline at 130 mL an hour, and O2 by nasal cannula at 2 L. We did add some Synthroid to her regimen as her thyroid-stimulating hormone was elevated. Her creatinine was 2.24. White count was 6.9, hemoglobin 9.4, hematocrit 30.9, and platelet count 289,000. PT, INR, and PTT were normal. Venous blood gas showed a pH of 7.24. Sodium 135 potassium 9.1, repeat 6.5, chlorides 117, CO2 14, anion gap 4, and BUN of 49 with creatinine of 2.24. CK was 195, troponin less than 0.012, N-terminal pro BNP 2200, and TSH was 7.130. COVID 19 testing was negative. The patient is seen today 10/01/2020 in follow-up in the intensive care unit. She is currently sitting up in bed. More awake and alert today. She is maintaining O2 saturation in the 90s on 2 L/m per nasal cannula. She hasn't 0.9 normal saline at 50 MLS per hour. She did receive a temporary hemodialysis catheter placement yesterday and received hemodialysis for her hyperkalemia. She is scheduled for dialysis again today. White count 10.7. Hemoglobin 9.3. Sodium 135. Potassium 6.0. Chloride 110. Creatinine 1.96. Chest x-ray shows stable left lower lobe infiltrate with small effusion. Objective - Vital Signs Vital signs: Vital Signs Temp 97.8 F 10/01/20 12:00 Pulse 69 10/01/20 12:00 Resp 20 10/01/20 12:00 BP 135/46 10/01/20 12:00 Pulse Ox 92 L 10/01/20 12:00 Intake & Output 09/30/20 10/01/20 10/01/20 18:59 06:59 18:59 Intake Total 990 1300 400 Output Total 5 330 245 Balance 985 970 155 Weight 104.326 kg Intake: IV 990 1300 200 Calcium Gluconate 1 gm In 100 Sodium Chloride 0.9% 100 ml @ 100 mls/hr IVPB ONCE ONE Rx#:[id number] Dextrose 5% in Water 1, 600 1200 200 000 ml @ 100 mls/hr IV . [id number] CLYDE with Sodium Bicarb (1 Meq/ml) 150 ml Rx#:[id number] Sodium Chloride 0.9% 1, 390 000 ml @ 130 mls/hr IV . [id number] STA Rx#:[id number] Intake, IV Titration 200 Amount Sodium Chloride 0.9% 1, 200 000 ml @ 50 mls/hr IV . Q20H CLYDE Rx#:[id number] Output: Urine 5 330 245 Hemodialysis 0 Other: Voiding Method Indwelling Catheter Indwelling Catheter Indwelling Catheter - Exam GENERAL EXAM: Alert, 80-year-old female patient, on 2 L nasal cannula, comfortable in no apparent distress. HEAD: Normocephalic. EYES: Normal reaction of pupils, equal size. NOSE: Clear with pink turbinates. THROAT: No erythema or exudates. NECK: Right temporary hemodialysis catheter in place. No masses, no JVD. CHEST: No chest wall deformity. LUNGS: Equal air entry with faint crackles in the left base. CVS: S1 and S2 normal with no audible murmur, regular rhythm. ABDOMEN: No hepatosplenomegaly, normal bowel sounds, no guarding or rigidity. SPINE: No scoliosis or deformity SKIN: No rashes CENTRAL NERVOUS SYSTEM: No focal deficits, tone is normal in all 4 extremities. EXTREMITIES: There is no peripheral edema. No clubbing, no cyanosis. Peripheral pulses are intact. - Labs CBC & Chem 7: 10/01/20 03:07 10/01/20 03:07 Labs: Abnormal Lab Results - Last 24 Hours (Table) 03/09/30/20 09/30/20 Range/Units 13:37 15:45 16:18 WBC (3.8-10.6) k/uL RBC (3.80-5.40) m/uL Hgb (11.4-16.0) gm/dL Hct (34.0-46.0) % Neutrophils # (1.3-7.7) k/uL Lymphocytes # (1.0-4.8) k/uL Sodium (137-145) mmol/L Potassium 7.4 H* (3.5-5.1) mmol/L Chloride (98-107) mmol/L BUN (7-17) mg/dL Creatinine (0.52-1.04) mg/dL Glucose (74-99) mg/dL POC Glucose (mg/dL) 186 H 110 H (75-99) mg/dL Phosphorus (2.5-4.5) mg/dL AST (14-36) U/L ALT (4-34) U/L Total Protein (6.3-8.2) g/dL Albumin (3.5-5.0) g/dL Urine Appearance (Clear) Urine Protein (Negative) Urine Blood (Negative) Ur Leukocyte Esterase (Negative) Urine RBC (0-5) /hpf Urine WBC (0-5) /hpf Urine WBC Clumps (None) /hpf Urine Bacteria (None) /hpf Hyaline Casts (0-2) /lpf Urine Mucus (None) /hpf Urine Yeast (Budding) (None) /hpf 09/30/20 09/30/20 09/30/20 Range/Units 17:31 18:42 19:16 WBC (3.8-10.6) k/uL RBC (3.80-5.40) m/uL Hgb (11.4-16.0) gm/dL Hct (34.0-46.0) % Neutrophils # (1.3-7.7) k/uL Lymphocytes # (1.0-4.8) k/uL Sodium (137-145) mmol/L Potassium (3.5-5.1) mmol/L Chloride (98-107) mmol/L BUN (7-17) mg/dL Creatinine (0.52-1.04) mg/dL Glucose (74-99) mg/dL POC Glucose (mg/dL) 115 H 118 H 190 H (75-99) mg/dL Phosphorus (2.5-4.5) mg/dL AST (14-36) U/L ALT (4-34) U/L Total Protein (6.3-8.2) g/dL Albumin (3.5-5.0) g/dL Urine Appearance (Clear) Urine Protein (Negative) Urine Blood (Negative) Ur Leukocyte Esterase (Negative) Urine RBC (0-5) /hpf Urine WBC (0-5) /hpf Urine WBC Clumps (None) /hpf Urine Bacteria (None) /hpf Hyaline Casts (0-2) /lpf Urine Mucus (None) /hpf Urine Yeast (Budding) (None) /hpf 09/30/20 09/30/20 09/30/20 Range/Units 19:53 21:08 21:22 WBC (3.8-10.6) k/uL RBC (3.80-5.40) m/uL Hgb (11.4-16.0) gm/dL Hct (34.0-46.0) % Neutrophils # (1.3-7.7) k/uL Lymphocytes # (1.0-4.8) k/uL Sodium (137-145) mmol/L Potassium (3.5-5.1) mmol/L Chloride (98-107) mmol/L BUN (7-17) mg/dL Creatinine (0.52-1.04) mg/dL Glucose (74-99) mg/dL POC Glucose (mg/dL) 177 H 142 H (75-99) mg/dL Phosphorus (2.5-4.5) mg/dL AST (14-36) U/L ALT (4-34) U/L Total Protein (6.3-8.2) g/dL Albumin (3.5-5.0) g/dL Urine Appearance Cloudy H (Clear) Urine Protein 1+ H (Negative) Urine Blood Moderate H (Negative) Ur Leukocyte Esterase Large H (Negative) Urine RBC 48 H (0-5) /hpf Urine WBC 65 H (0-5) /hpf Urine WBC Clumps Occasional H (None) /hpf Urine Bacteria Rare H (None) /hpf Hyaline Casts 75 H (0-2) /lpf Urine Mucus Rare H (None) /hpf Urine Yeast (Budding) Few H (None) /hpf 09/30/20 10/01/20 10/01/20 Range/Units 21:51 00:11 01:56 WBC (3.8-10.6) k/uL RBC (3.80-5.40) m/uL Hgb (11.4-16.0) gm/dL Hct (34.0-46.0) % Neutrophils # (1.3-7.7) k/uL Lymphocytes # (1.0-4.8) k/uL Sodium (137-145) mmol/L Potassium (3.5-5.1) mmol/L Chloride (98-107) mmol/L BUN (7-17) mg/dL Creatinine (0.52-1.04) mg/dL Glucose (74-99) mg/dL POC Glucose (mg/dL) 132 H 143 H 163 H (75-99) mg/dL Phosphorus (2.5-4.5) mg/dL AST (14-36) U/L ALT (4-34) U/L Total Protein (6.3-8.2) g/dL Albumin (3.5-5.0) g/dL Urine Appearance (Clear) Urine Protein (Negative) Urine Blood (Negative) Ur Leukocyte Esterase (Negative) Urine RBC (0-5) /hpf Urine WBC (0-5) /hpf Urine WBC Clumps (None) /hpf Urine Bacteria (None) /hpf Hyaline Casts (0-2) /lpf Urine Mucus (None) /hpf Urine Yeast (Budding) (None) /hpf 10/01/20 10/01/20 10/01/20 Range/Units 03:07 03:07 04:20 WBC 10.7 H (3.8-10.6) k/uL RBC 3.25 L (3.80-5.40) m/uL Hgb 9.3 L (11.4-16.0) gm/dL Hct 29.0 L (34.0-46.0) % Neutrophils # 9.4 H (1.3-7.7) k/uL Lymphocytes # 0.6 L (1.0-4.8) k/uL Sodium 135 L (137-145) mmol/L Potassium 6.0 H (3.5-5.1) mmol/L Chloride 110 H (98-107) mmol/L BUN 37 H (7-17) mg/dL Creatinine 1.96 H (0.52-1.04) mg/dL Glucose 165 H (74-99) mg/dL POC Glucose (mg/dL) 180 H (75-99) mg/dL Phosphorus 4.8 H (2.5-4.5) mg/dL AST 66 H (14-36) U/L ALT 38 H (4-34) U/L Total Protein 4.9 L (6.3-8.2) g/dL Albumin 2.5 L (3.5-5.0) g/dL Urine Appearance (Clear) Urine Protein (Negative) Urine Blood (Negative) Ur Leukocyte Esterase (Negative) Urine RBC (0-5) /hpf Urine WBC (0-5) /hpf Urine WBC Clumps (None) /hpf Urine Bacteria (None) /hpf Hyaline Casts (0-2) /lpf Urine Mucus (None) /hpf Urine Yeast (Budding) (None) /hpf 10/01/20 10/01/20 10/01/20 Range/Units 06:04 07:08 08:04 WBC (3.8-10.6) k/uL RBC (3.80-5.40) m/uL Hgb (11.4-16.0) gm/dL Hct (34.0-46.0) % Neutrophils # (1.3-7.7) k/uL Lymphocytes # (1.0-4.8) k/uL Sodium (137-145) mmol/L Potassium (3.5-5.1) mmol/L Chloride (98-107) mmol/L BUN (7-17) mg/dL Creatinine (0.52-1.04) mg/dL Glucose (74-99) mg/dL POC Glucose (mg/dL) 203 H 198 H 211 H (75-99) mg/dL Phosphorus (2.5-4.5) mg/dL AST (14-36) U/L ALT (4-34) U/L Total Protein (6.3-8.2) g/dL Albumin (3.5-5.0) g/dL Urine Appearance (Clear) Urine Protein (Negative) Urine Blood (Negative) Ur Leukocyte Esterase (Negative) Urine RBC (0-5) /hpf Urine WBC (0-5) /hpf Urine WBC Clumps (None) /hpf Urine Bacteria (None) /hpf Hyaline Casts (0-2) /lpf Urine Mucus (None) /hpf Urine Yeast (Budding) (None) /hpf 10/01/20 Range/Units 10:06 WBC (3.8-10.6) k/uL RBC (3.80-5.40) m/uL Hgb (11.4-16.0) gm/dL Hct (34.0-46.0) % Neutrophils # (1.3-7.7) k/uL Lymphocytes # (1.0-4.8) k/uL Sodium (137-145) mmol/L Potassium (3.5-5.1) mmol/L Chloride (98-107) mmol/L BUN (7-17) mg/dL Creatinine (0.52-1.04) mg/dL Glucose (74-99) mg/dL POC Glucose (mg/dL) 230 H (75-99) mg/dL Phosphorus (2.5-4.5) mg/dL AST (14-36) U/L ALT (4-34) U/L Total Protein (6.3-8.2) g/dL Albumin (3.5-5.0) g/dL Urine Appearance (Clear) Urine Protein (Negative) Urine Blood (Negative) Ur Leukocyte Esterase (Negative) Urine RBC (0-5) /hpf Urine WBC (0-5) /hpf Urine WBC Clumps (None) /hpf Urine Bacteria (None) /hpf Hyaline Casts (0-2) /lpf Urine Mucus (None) /hpf Urine Yeast (Budding) (None) /hpf Microbiology - Last 24 Hours (Table) 09/30/20 21:22 Urine Culture - Preliminary Urine,Voided Assessment and Plan Assessment: 1 Junk some bradycardia with hypotension, secondary to hyperkalemia 2 Hyperkalemia with initial potassium of 9.1. Currently 6.0. 3 History of congestive heart failure 4 History of chronic obstructive pulmonary disease 5 History of diabetes mellitus 6 Hyperlipidemia 7 Hypertension 8 DJD 9 Hypothyroidism 10 Questionable right hilar mass on x-ray Plan: The patient was seen and evaluated by Dr. Guerrero Chest x-ray and labs reviewed To receive hemodialysis again today Continue to monitor potassium Bradycardia has improved We will continue to follow Outpatient workup regarding right hilar mass I, the cosigning physician, performed a history & physical examination of the patient. Lungs sounds with crackles in left posterior base. Maintaining good O2 saturations in the 90s on 2 L/m per nasal cannula. I discussed the assessment and plan of care with my nurse practitioner, Delicia Carpio. I attest to the above note as dictated by her.
[2020-10-01 13:04] LABS: Glucose,Whole Blood 208 mg/dL (75-99)
[2020-10-01 14:46] LABS: Glucose,Whole Blood 201 mg/dL (75-99)
[2020-10-01 16:05] LABS: Glucose,Whole Blood 182 mg/dL (75-99)
--- NOTE | 2020-10-01 17:00 | CONS ---
CONSULTATION REASON FOR CONSULT: Severe hyperkalemia. HISTORY OF PRESENT ILLNESS: Patient is an 80-year-old female who was admitted to the hospital yesterday as daughter called when patient was found to be quite weak with mental status changes as well. When she was brought into the ER she was found to be severely bradycardic with heart rate in the 30s. Blood pressure was low and potassium was noted to be 9 mEq/L. The patient was treated with IV treatment for hyperkalemia. Her potassium did improve somewhat to around 7, however, it remained elevated and patient was dialyzed yesterday. She continues to have poor urine output at about 10 to 5 mL an hour. However, it did improve a little bit to about 20 mL/hour for a few hours last night. Serum potassium this morning was still elevated at 6 mEq/L. Patient was acidotic with a CO2 of 14 and was started on bicarb drip yesterday. Blood pressure has been better and patient has not needed any pressors since yesterday. She has received IV fluid boluses as well. There is no active GI bleed noted. The patient was on Cozaar and spironolactone at home prior to admission. She denies use of any nonsteroidal anti-inflammatory agents. Serum creatinine was 2.24 and previous labs show serum creatinine of 1.2 on 01/03/2020. PAST MEDICAL HISTORY: Significant for CHF, COPD, type 2 diabetes, hyperlipidemia, hypertension, osteoarthritis, hypothyroidism. PAST SURGICAL HISTORY: Cholecystectomy, tonsillectomy, right breast biopsy, laser surgery to the eyes. SOCIAL HISTORY: Negative for smoking, drug abuse or alcohol abuse. MEDICATIONS: Medications at home prior to admission included Cozaar, Coreg Synthroid, Norvasc, Lasix, Lipitor, insulin. ALLERGIES: ALLERGIES include PENICILLIN which causes rash and hives. REVIEW OF SYSTEMS: As per HPI. Other systems negative. EXAMINATION: Patient is comfortable, awake, alert. She is not in any acute distress. She is lethargic but is able to answer questions. Blood pressure this morning 136/44, heart rate 71 per minute, she is afebrile. Examination of the heart S1, S2. Examination of the lungs, bilateral breath sounds are heard. Decreased breath sounds at bases. Abdomen is soft, nontender. Examination of lower extremities shows no significant edema. [employer] exam shows patient is moving all four extremities. LAB: Show hemoglobin 9.3 sodium 135, potassium 6.0, chloride 110, CO2 is 22, BUN 37, creatinine 1.96, albumin 2.5. UA shows 1+ protein, WBCs 65, WBC clumps noted, hyaline casts 75. PCR for coronavirus negative. ASSESSMENT: 1. Acute kidney injury, acute tubular necrosis, currently oliguric secondary to hypotension and hypoperfusion. Urine output seems to have picked up. I will maintain patient on Lasix. We will arrange for dialysis again today because of persistent hyperkalemia. Hopefully she will not need more dialysis if as long as her urine output continues to improve. 2. Severe hyperkalemia associated with acute kidney injury in the setting of use of angiotensin receptor blockers and Aldactone. No active GI bleed noted at this time. The patient has received one treatment of hemodialysis yesterday. We will plan to dialyze her again today. 3. Metabolic acidosis associated with renal failure, currently improved. 4. Pyuria, rule out urinary tract infection. Urine culture is pending. Will maintain patient on Zosyn. She is allergic to Rocephin. 5. Possible left lower lobe pneumonia. PLAN: Add Zosyn. Follow up on urine cultures. Repeat hemodialysis today. Discontinue bicarb drip. Switch to normal saline. Increase oral intake and add Lasix. Thank you for this consultation. Will continue to follow the patient with you during her hospitalization. MMIRVINL / IJN: [id number] /
--- NOTE | 2020-10-01 17:16 | PN ---
PROGRESS NOTE DATE OF SERVICE: 10/01/2020 CHIEF COMPLAINT: Hyperkalemia and renal failure. HISTORY OF PRESENT ILLNESS: This lady is awake and alert. She is currently being dialyzed. She denies any headaches, focal neurologic deficits, chest pain, shortness of breath, abdominal pain, etc. PHYSICAL EXAMINATION: Chest is clear. Cardiac exam is normal sinus rhythm. The abdomen is soft. Extremities are normal except for some stasis lesions on the shins. IMPRESSION: 1. Acute on chronic renal failure. 2. Hyperkalemia. PLAN: 1. Continue with dialysis. 2. Physical therapy. 3. Discharge planning. MMODL / IJN: [id number] /
[2020-10-01 18:06] LABS: Glucose,Whole Blood 155 mg/dL (75-99)
[2020-10-01] MEDS: HYDROcodone/APAP 5-325MG 1 EACH TAB PO PRN (19:02)
[2020-10-01 20:27] LABS: Glucose,Whole Blood 214 mg/dL (75-99)
[2020-10-01] MEDS: INSULIN ASPART (NovoLOG) 100 UNIT/ML VIAL SQ SCH (20:45)
[2020-10-01] MEDS: INSULIN DETEMIR (LEVEMIR) 100 UNIT/ML SYR SQ SCH (21:50)
[2020-10-02 01:51] LABS: Glucose,Whole Blood 132 mg/dL (75-99)
[2020-10-02] MEDS ORDERED: FUROSEMIDE 10 MG/ML 10 ML VIAL IV STA (02:11)
[2020-10-02 04:19] LABS: Basophils % (A) 0 %; Eosinophils # (A) 0.1 k/uL (0-0.7); Eosinophils % (A) 1 %; HCT 26.4 % (34.0-46.0); HGB 8.5 gm/dL (11.4-16.0); Hypochromasia Slight; Lymphocytes # (A) 1.1 k/uL (1.0-4.8); Lymphocytes % (A) 14 %; MCH 28.7 pg (25.0-35.0); MCHC 32.3 g/dL (31.0-37.0); MCV 89.1 fL (80.0-100.0); Mean Platelet Volume 7.6; Monocytes # (A) 0.7 k/uL (0-1.0); Monocytes % (A) 9 %; Neutrophils # (A) 6.1 k/uL (1.3-7.7); Neutrophils % (A) 75 %; Platelet Count 220 k/uL (150-450); RBC 2.96 m/uL (3.80-5.40); WBC 8.1 k/uL (3.8-10.6)
[2020-10-02 04:28] LABS: Calcium 7.8 mg/dL (8.4-10.2); Potassium 4.8 mmol/L (3.5-5.1)
[2020-10-02] MEDS: SODIUM CHLORIDE 0.9% 1,000 ML IV SCH (05:02)
[2020-10-02 06:05] LABS: Glucose,Whole Blood 67 mg/dL (75-99)
[2020-10-02] MEDS: INSULIN ASPART (NovoLOG) 100 UNIT/ML VIAL SQ SCH ×4 (06:23→21:08)
[2020-10-02 06:28] LABS: Glucose,Whole Blood 73 mg/dL (75-99)
--- NOTE | 2020-10-02 07:32 | P.PN ---
Subjective Progress Note Date: 10/02/20 80-year-old female patient, brought into the hospital after being found on the floor discovered by family member. The patient did not have any major complaints initially. She was found to be bradycardic while being brought into the hospital and she was also evaluated in the emergency department. She was having increased weakness and lack of energy. In the ED, the patient was found to be bradycardic, hypotensive and her initial potassium level was 9.1. Repeat potassium level after treatment came down to 6.5. She got moved to the intensive care unit. She was hydrated with normal saline at the rate of 1 30 mL an hour and she was provided oxygen 2 L per minute nasal cannula. The patient was found to have an elevated TSH level and she was started on Synthroid. Her creatinine was elevated. Her white cell count wasn't 6.9 with a hemoglobin of 9.4 and normal coagulation profile. Covid 19 testing came back negative. ProBNP level was 2200 and the troponins were negative. She subsequently received temporary dialysis catheter placement on the the direction of nephrology and received hemodialysis for hyperkalemia. She has already undergone 2 sessions of hemodialysis. Chest x-ray revealed a left lower lobe pulmonary infiltrates with small pleural effusion. The patient otherwise doing well. The patient is producing adequate amount of urine output. Potassium level is normalized. No significant bradycardia. BP is controlled under Norvasc and the rest of the medications abdomen discontinued including Aldactone. The patient is producing adequate urine output in order of 50 mL an hour. Note that the patient's potassium level has normalized. Objective - Vital Signs Vital signs: Vital Signs Temp 98.4 F 10/02/20 04:00 Pulse 68 10/02/20 07:00 Resp 10 L 10/02/20 07:00 BP 141/58 10/02/20 07:00 Pulse Ox 93 L 10/02/20 07:00 Intake & Output 10/01/20 10/02/20 10/02/20 18:59 06:59 18:59 Intake Total 700 600 50 Output Total 690 825 270 Balance 10 225 -220 Weight 120.1 kg Intake: IV 200 Dextrose 5% in Water 1, 200 000 ml @ 100 mls/hr IV . [id number] CLYDE with Sodium Bicarb (1 Meq/ml) 150 ml Rx#:[id number] Intake, IV Titration 500 600 50 Amount Sodium Chloride 0.9% 1, 500 600 50 000 ml @ 50 mls/hr IV . Q20H [facility] Rx#:[id number] Output: Urine 690 825 270 Other: Voiding Method Indwelling Catheter Indwelling Catheter - Exam GENERAL EXAM: Alert, 80-year-old female patient, on 2 L nasal cannula, comfortable in no apparent distress. She is awake and alert and she is following commands and answering questions HEAD: Normocephalic. EYES: Normal reaction of pupils, equal size. NOSE: Clear with pink turbinates. THROAT: No erythema or exudates. NECK: Right temporary hemodialysis catheter in place. No masses, no JVD. Patient has a temporary dialysis catheter in the right IJ. CHEST: No chest wall deformity. LUNGS: Equal air entry with faint crackles in the left base. CVS: S1 and S2 normal with no audible murmur, regular rhythm. ABDOMEN: No hepatosplenomegaly, normal bowel sounds, no guarding or rigidity. SPINE: No scoliosis or deformity SKIN: No rashes CENTRAL NERVOUS SYSTEM: No focal deficits, tone is normal in all 4 extremities. EXTREMITIES: There is no peripheral edema. No clubbing, no cyanosis. Nicole pheral pulses are intact. The patient has chronic venous ulcers lower extremities bilaterally on the ulcers are wrapped - Labs CBC & Chem 7: 10/02/20 03:39 10/02/20 03:39 Labs: Abnormal Lab Results - Last 24 Hours (Table) 10/01/20 10/01/20 10/01/20 Range/Units 08:04 10:06 13:02 RBC (3.80-5.40) m/uL Hgb (11.4-16.0) gm/dL Hct (34.0-46.0) % Chloride (98-107) mmol/L BUN (7-17) mg/dL Creatinine (0.52-1.04) mg/dL POC Glucose (mg/dL) 211 H 230 H 208 H (75-99) mg/dL Calcium (8.4-10.2) mg/dL 10/01/20 10/01/20 10/01/20 Range/Units 14:44 16:04 18:04 RBC (3.80-5.40) m/uL Hgb (11.4-16.0) gm/dL Hct (34.0-46.0) % Chloride (98-107) mmol/L BUN (7-17) mg/dL Creatinine (0.52-1.04) mg/dL POC Glucose (mg/dL) 201 H 182 H 155 H (75-99) mg/dL Calcium (8.4-10.2) mg/dL 10/01/20 10/02/20 10/02/20 Range/Units 20:25 01:49 03:39 RBC (3.80-5.40) m/uL Hgb (11.4-16.0) gm/dL Hct (34.0-46.0) % Chloride 108 H (98-107) mmol/L BUN 33 H (7-17) mg/dL Creatinine 1.88 H (0.52-1.04) mg/dL POC Glucose (mg/dL) 214 H 132 H (75-99) mg/dL Calcium 7.8 L (8.4-10.2) mg/dL 10/02/20 10/02/20 10/02/20 Range/Units 03:39 06:03 06:25 RBC 2.96 L (3.80-5.40) m/uL Hgb 8.5 L (11.4-16.0) gm/dL Hct 26.4 L (34.0-46.0) % Chloride (98-107) mmol/L BUN (7-17) mg/dL Creatinine (0.52-1.04) mg/dL POC Glucose (mg/dL) 67 L 73 L (75-99) mg/dL Calcium (8.4-10.2) mg/dL Microbiology - Last 24 Hours (Table) 09/30/20 21:22 Urine Culture - Preliminary Urine,Voided Assessment and Plan Plan: 1 Acute kidney injury/ATN with secondary electrode disturbances, hyperkalemia, oligoria with secondary hypotension and hypoperfusion. The patient Had a temporary dialysis catheter inserted in the patient already received 2 sessions of hemodialysis, and electrolytes are being monitored very closely. The patient has been resuscitated IV fluids. Patient's electronic is improved and the patient's potassium level today is down to 4.8. She is producing urine output. This is in order of 50 mL an hour and the patient is currently on IV fluids running at 0.9 at the rate of 50 mL an hour. 2 Junctional bradycardia with hypotension, secondary to hyperkalemia, and the patient was also using angiotensin receptor miesha and Aldactone outpatient basis. Potassium level is improving with hemodialysis. Potassium level is down to 4.8 2 Hyperkalemia with initial potassium of 9.1. Currently currently the level is down to 4.8 3 History of congestive heart failure, Echocardiogram from November 2020 showed a LV function was preserved with an ejection fraction of 55-60%. No significant valvular abnormalities. 4 History of chronic obstructive pulmonary disease 5 History of diabetes mellitus 6 Hyperlipidemia 7 Hypertension, Maintained on a combination of Cozaar, Lasix and Norvasc and Coreg. The patient is also on Aldactone. 8 DJD 9 Hypothyroidism 10 Questionable right hilar mass on x-ray 11 metabolic encephalopathy with secondary altered mentation 12 hypothyroidism currently on Synthroid 100 g IV every 24 hours. The patient was receiving 100 g orally at home. Plan: Keep the patient off Aldactone and Lasix and continue with normal saline at the rate of 50 mL an hour and monitor urine output Continue to monitor potassium, the levels have improved. Bradycardia has improved him on the patient's rhythm is back to sinus and the mid 50s. This patient's Synthroid back to oral at a dose of 125 g on a daily basis Provide diet Santhosh physical therapy Venous also in lower extremities and the wounds are wrapped The temporary dialysis catheter may be potentially removed. Creatinine is down to 1.8 Chest x-ray shows a small effusion/atelectasis in the left lower lobe She can be transferred out of the intensive care unit today.
--- NOTE | 2020-10-02 08:21 | XR ---
EXAMINATION TYPE: XR chest 1V portable DATE OF EXAM: 10/02/2020 COMPARISON: 10/01/2020 INDICATION: Shortness of breath TECHNIQUE: Single frontal view of the chest is obtained semiupright position. Patient is rotated to t he left FINDINGS: The heart size is normal. The pulmonary vasculature is normal. There is a small left pleural effusion. Adjacent infiltrate is present. Correlate for compressive ate lectasis or pneumonia. IMPRESSION: 1. Small left pleural effusion likely with adjacent compressive atelectasis or pneumonia. Follow-up i s recommended.
[2020-10-02] MEDS: LEVOTHYROXINE 125 MCG TAB PO SCH (09:59)
[2020-10-02] MEDS: ATORVASTATIN 20 MG TAB PO SCH (09:59)
[2020-10-02] MEDS: amLODIPine 5 MG TAB PO SCH (09:59)
--- NOTE | 2020-10-02 10:46 | ECHOF ---
Referral Reason:CHF MEASUREMENTS -------- HEIGHT: 160.0 cm WEIGHT: 119.7 kg BP: 153/62 RVIDd: 3.1 cm (< 3.3) IVSd: 1.1 cm (0.6 - 1.1) LVIDd: 4.7 cm (3.9 - 5.3) LVPWd: 1.0 cm (0.6 - 1.1) IVSs: 1.7 cm LVIDs: 2.9 cm LVPWs: 1.3 cm LA Diam: 3.7 cm (2.7 - 3.8) LAESV Index (A-L): 35.94 ml/m Ao Diam: 2.4 cm (2.0 - 3.7) AV Cusp: 1.5 cm (1.5 - 2.6) MV E Raul: 1.85 m/s MV DecT: 255 ms MV A Raul: 0.98 m/s MV E/A Ratio: 1.89 AV maxP.68 mmHg AV meanP.18 mmHg RAP: 15.00 mmHg RVSP: 61.81 mmHg FINDINGS -------- Resting bradycardia (HR<60bpm). This was a technically adequate study. The left ventricular size is normal. There is borderline concentric left ventricular hypertrophy. Overall left ventricular systolic function is normal with, an EF between 60 - 65 %. The right ventricle is normal in size. LA is moderately dilated 34-39 ml/m2 The right atrium is normal in size. Interatrial and interventricular septum intact. There is mild aortic valve sclerosis. There is mild aortic stenosis present. Peak/mean gradient a cross the Aortic Valve is 17.68mmHg / 7.18mmHg. The mitral valve leaflets are moderately thickened. Moderate mitral annular calcification present. Mild mitral regurgitation is present. The peak and mean MV gradients are 18.93mmHg 4.50mmHg as m easured by doppler. Mild mitral stenosis. [id number] tricuspid regurgitation present. There is severe pulmonary hypertension. The rig ht ventricular systolic pressure, as measured by Doppler, is 61.81mmHg. The pulmonic valve was not well visualized. The aortic root size is normal. The inferior vena cava is dilated with poor inspiratory collapse which is consistent with estimated r ight atrial pressure of 15 mmHg. There is no pericardial effusion. CONCLUSIONS -------- 1. Resting bradycardia (HR<60bpm). 2. The left ventricular size is normal. 3. There is borderline concentric left ventricular hypertrophy. 4. Overall left ventricular systolic function is normal with, an EF between 60 - 65 %. 5. LA is moderately dilated 34-39 ml/m2 6. There is mild aortic valve sclerosis. 7. There is mild aortic stenosis present. 8. Peak/mean gradient across the Aortic Valve is 17.68mmHg / 7.18mmHg. 9. The mitral valve leaflets are moderately thickened. 10. Moderate mitral annular calcification present. 11. Mild mitral regurgitation is present. 12. The peak and mean MV gradients are 18.93mmHg 4.50mmHg as measured by doppler. 13. Mild mitral stenosis. 14. [id number] tricuspid regurgitation present. 15. There is severe pulmonary hypertension. 16. The right ventricular systolic pressure, as measured by Doppler, is 61.81mmHg. 17. The inferior vena cava is dilated with poor inspiratory collapse which is consistent with estimat ed right atrial pressure of 15 mmHg. 18. There is no pericardial effusion. UPHOLSTERY SEWER: Zee Hernandez RDCS
--- NOTE | 2020-10-02 11:58 | P.PN ---
Subjective Progress Note Date: 10/02/20 HISTORY OF PRESENT ILLNESS: This is an 80-year-old female who was admitted to the hospital secondary to hyperkalemia and bradycardia. Patient's heart rate was in the 30s. Patient has received hemodialysis twice. Patient's heart rate is currently in the 50s and 60s. Patient's blood pressure was elevated yesterday and she was started on amlodipine. Potassium 4.8. PHYSICAL EXAM: VITAL SIGNS: Reviewed. GENERAL: Well-developed in no acute distress. NECK: Supple. No JVD or thyromegaly. LUNGS: Respirations even and unlabored. Lungs diminished bilaterally HEART: Regular rate and rhythm. S1 and S2 heard. EXTREMITIES: Normal range of motion. No clubbing or cyanosis. Peripheral pulses intact. bilateral lower extremity edema ASSESSMENT: Acute kidney injury Hyperkalemia, 9.1 on admission, resolved Junctional bradycardia with a heart rate in the 30s, improved COPD Diabetes mellitus Hypertension Hyperlipidemia PLAN: Continue amlodipine for blood pressure control Continue to monitor potassium levels Continue to hold beta blockers Further recommendations pending patient course Nurse practitioner note has been reviewed by physician. Signing provider agrees with the documented findings, assessment, and plan of care. Objective - Vital Signs Vital signs: Vital Signs Temp 97.4 F L 10/02/20 08:00 Pulse 62 10/02/20 09:00 Resp 15 10/02/20 09:00 BP 162/58 10/02/20 09:00 Pulse Ox 92 L 10/02/20 09:00 Intake & Output 10/01/20 10/02/20 10/02/20 18:59 06:59 18:59 Intake Total 700 600 100 Output Total 690 825 490 Balance 10 -225 -390 Weight 120.1 kg 120.1 kg Intake: IV 200 Dextrose 5% in Water 1, 200 000 ml @ 100 mls/hr IV . [id number] [facility] with Sodium Bicarb (1 Meq/ml) 150 ml Rx#:[id number] Intake, IV Titration 500 600 100 Amount Sodium Chloride 0.9% 1, 500 600 100 000 ml @ 50 mls/hr IV . Q20H [facility] Rx#:[id number] Output: Urine 690 825 490 Other: Voiding Method Indwelling Catheter Indwelling Catheter Indwelling Catheter - Labs CBC & Chem 7: 10/02/20 03:39 03/22/21 03:39 Labs: Abnormal Lab Results - Last 24 Hours (Table) 10/01/20 10/01/20 10/01/20 Range/Units 13:02 14:44 16:04 RBC (3.80-5.40) m/uL Hgb (11.4-16.0) gm/dL Hct (34.0-46.0) % Chloride (98-107) mmol/L BUN (7-17) mg/dL Creatinine (0.52-1.04) mg/dL POC Glucose (mg/dL) 208 H 201 H 182 H (75-99) mg/dL Calcium (8.4-10.2) mg/dL 10/01/20 10/01/20 10/02/20 Range/Units 18:04 20:25 01:49 RBC (3.80-5.40) m/uL Hgb (11.4-16.0) gm/dL Hct (34.0-46.0) % Chloride (98-107) mmol/L BUN (7-17) mg/dL Creatinine (0.52-1.04) mg/dL POC Glucose (mg/dL) 155 H 214 H 132 H (75-99) mg/dL Calcium (8.4-10.2) mg/dL 10/02/20 10/02/20 10/02/20 Range/Units 03:39 03:39 06:03 RBC 2.96 L (3.80-5.40) m/uL Hgb 8.5 L (11.4-16.0) gm/dL Hct 26.4 L (34.0-46.0) % Chloride 108 H (98-107) mmol/L BUN 33 H (7-17) mg/dL Creatinine 1.88 H (0.52-1.04) mg/dL POC Glucose (mg/dL) 67 L (75-99) mg/dL Calcium 7.8 L (8.4-10.2) mg/dL 10/02/20 Range/Units 06:25 RBC (3.80-5.40) m/uL Hgb (11.4-16.0) gm/dL Hct (34.0-46.0) % Chloride (98-107) mmol/L BUN (7-17) mg/dL Creatinine (0.52-1.04) mg/dL POC Glucose (mg/dL) 73 L (75-99) mg/dL Calcium (8.4-10.2) mg/dL Microbiology - Last 24 Hours (Table) 09/30/20 21:22 Urine Culture - Final Urine,Voided
[2020-10-02 12:34] LABS: Glucose,Whole Blood 35 mg/dL (75-99)
[2020-10-02 12:34] LABS: Glucose,Whole Blood 43 mg/dL (75-99)
[2020-10-02] MEDS: DEXTROSE 50% SYRINGE 50 ML IVP ONE (12:35)
[2020-10-02 13:02] LABS: Glucose,Whole Blood 120 mg/dL (75-99)
--- NOTE | 2020-10-02 13:41 | PN ---
PROGRESS NOTE The patient is seen for followup for acute kidney injury, severe hyperkalemia. She has had 2 treatments of hemodialysis. Urine output has now picked up and potassium is down to 4.8 mEq/L. Overall, patient is awake, comfortable. She is alert and oriented x3, significantly improved over the last couple of days. PHYSICAL EXAMINATION: On examination today, blood pressure was 153/62, heart rate 59 per minute. She is afebrile. EXAMINATION OF THE HEART: S1, S2. EXAMINATION OF LUNGS: Decreased breath sounds at bases. Abdomen is soft, nontender. Examination of lower extremities shows edema 1+ bilaterally. Chronic skin changes noted. Lower extremities are wrapped. SENIOR CYTOTECHNOLOGIST exam grossly intact. Patient is moving all 4 extremities. LABS: Labs show hemoglobin of 8.5, sodium 137, potassium 4.8, chloride 108, BUN 33, creatinine 1.8 mg/dL. ASSESSMENT: 1. Acute kidney injury, acute tubular necrosis, secondary to hypotension initially oliguric, currently improved, status post 2 treatments of hemodialysis. I will hold off on any further dialysis for now. Patient has good urine output. She is maintained on IV Lasix. She did get a dose of IV Lasix yesterday x2, IV fluids currently at 50 mL an hour. 2. Severe hyperkalemia associated with acute kidney injury, use of angiotensin receptor blockers, Aldactone, currently improved. 3. Bradycardia on admission associated with hyperkalemia currently improved. 4. Severe metabolic acidosis associated with renal failure, significantly improved. Patient had 2 treatments of dialysis. 5. Urinary tract infection. Urine culture is currently pending. Patient is maintained on Zosyn. 6. Possible left lower lobe pneumonia. PLAN: Discontinue IV fluids. Hold off on dialysis. Follow up on urine cultures. Increase oral intake. Avoid hypotension. Repeat labs in a.m. MMODL / IJN: [id number] /
[2020-10-02 14:08] LABS: Hemoglobin A1C 6.8 % (4.0-6.0)
--- NOTE | 2020-10-02 14:22 | P.CONS ---
History of Present Illness - Reason for Consult Consult date: 10/02/20 Wound care - History of Present Illness This is an 80-year-old patient being seen by the wound care center for nonhealing ulcerations to the right calcaneus, medial posterior aspect of the right lower extremity and the lateral and anterior aspect of the left lower extremity. Patient was seen previously in November for the same ulcerations she was being treated at [facility] by Dr. Beckwith with Santyl. At this time patient was at home being treated by residential she was unsure of the product that was being used. Patient states that the ulcerations have been improving. Right calcaneus ulceration is a stage II pressure ulcer with fatty layer exposure granulation seen in the wound bed with significant Slough and tenderness to palpation. Right medial ulceration is a cluster of 6 ulcerations that that layer exposure wound edges are attached to the wound base significant amount of slough and nonviable tissues noted with minimal granulation seen within the wound beds. No undermining or tunneling noted. Left lower extremity ulceration lateral and posterior aspects are cluster of 4 ulcerations with fat layer exposu re wound edges are attached to the wound base. Significant amount of slough and nonviable tissue noted with minimal granulation. Serous drainage noted to the site. No undermining or tunneling noted. Past medical history includes heart failure, COPD, diabetes, hypertension, hyperlipidemia, osteoporosis, and hiatal hernia. Review Of Systems: Constitutional: No fever, no chills, no night sweats. No weight change. No weakness, fatigue or lethargy. No daytime sleepiness. Integumentary:reports wounds, no lesions. No rash or pruritus. No unusual bruising. No change in hair or nails. Physical exam: General Appearance: Alert, cooperative, no distress, appears stated age. Skin: See HPI all other Skin color, texture, tugor normal, no rashes or lesions. Neurologic: Alert oriented x3 Assessment: 1. Stage II pressure ulcer right calcaneus 2. Nonhealing ulceration with fat layer exposure right lower extremity medial aspect 2. Nonhealing ulceration with fat layer exposure left medial anterior aspect Plan: 1. Apply honey alginate to all ulcerations saline moistened gauze, dry gauze, rolled gauze secured with paper tape. Change Friday. Patient would benefit from continued advanced wound care and debridement in the outpatient setting. We'll be happy to see her in the wound care center upon discharge. 2. Keep lower extremities elevated. 3. Elevate lower extremities 30 minutes a day higher than heart level. 4. Apply foam heel protectors Thank you for the consultation any questions please contact the wound care center DNP note has been reviewed and discussed with Dr. Barone and the impression and plan of care has been directed as dictated. Past Medical History Past Medical History: Heart Failure, COPD, Diabetes Mellitus, Hyperlipidemia, Hypertension, Osteoarthritis (OA), Pneumonia, Skin Disorder, Thyroid Disorder Additional Past Medical History / Comment(s): PUL EDEMA, HIATL HERNIA, EDEMA TO LEGS AND BREAKDOWN/BLISTERS TO MARTÍN LEGS, IBS, EDEMA TO BILAT LE'S History of Any Multi-Drug Resistant Organisms: None Reported Past Surgical History: Cholecystectomy, Tonsillectomy Additional Past Surgical History / Comment(s): neck SX REMOVED BENIGN MASS OUT, RT BREAST BX-BENIGN, LASER EYE SX THINKS ON HER RT EYE. Past Anesthesia/Blood Transfusion Reactions: No Reported Reaction Past Psychological History: No Psychological Hx Reported Past Alcohol Use History: None Reported Past Drug Use History: None Reported - Past Family History Father Family Medical History: Hypertension, Myocardial Infarction ([place]) Additional Family Medical History / Comment(s): X3 [place], Mother Family Medical History: Cancer Additional Family Medical History / Comment(s): DIES FROM COLON CA Medications and Allergies Home Medications Medication Instructions Recorded Confirmed Type Levothyroxine Sodium 100 mcg PO DAILY 10/02/19 09/30/20 History Losartan [Cozaar] 50 mg PO DAILY 10/02/19 09/30/20 History carvediloL [Coreg*] 12.5 mg PO DAILY 10/02/19 09/30/20 History amLODIPine [Norvasc] 10 mg PO DAILY 10/18/19 09/30/20 History Furosemide [Lasix] 40 mg PO DAILY 12/05/19 09/30/20 History Atorvastatin [Lipitor] 40 mg PO DAILY 09/30/20 09/30/20 History Insulin Aspart Protam & Aspart 10 unit SQ HS 09/30/20 09/30/20 History [NovoLOG MIX 70-30 Flexpen] Insulin Aspart Protam & Aspart 28 unit SQ DAILY 09/30/20 09/30/20 History [NovoLOG MIX 70-30 Flexpen] Spironolactone 25 mg PO DAILY 09/30/20 09/30/20 History Allergies Allergy/AdvReac Type Severity Reaction Status Date / Time Penicillins Allergy Rash/Hives Verified 09/30/20 08:28 Physical Exam Vitals: Vital Signs Temp Pulse Pulse Resp BP BP Pulse Ox 10/02/20 13:00 63 19 142/53 85 L 10/02/20 12:00 97.9 F 58 L 18 150/73 91 L 10/02/20 11:00 56 L 15 152/55 92 L 10/02/20 10:00 57 L 4 L 154/56 93 L 10/02/20 09:00 62 15 162/58 92 L 10/02/20 08:00 97.4 F L 59 L 18 153/62 93 L 10/02/20 07:00 68 10 L 141/58 93 L 10/02/20 06:00 59 L 19 135/55 95 10/02/20 05:00 55 L 15 144/51 95 10/02/20 04:00 98.4 F 70 20 136/50 92 L 10/02/20 03:00 59 L 19 131/48 94 L 10/02/20 02:00 53 L 16 135/50 94 L 10/02/20 01:00 57 L 12 138/54 95 10/02/20 00:00 98.7 F 58 L 18 136/49 96 10/01/20 23:16 53 L 16 95 10/01/20 23:00 55 L 14 135/52 96 10/01/20 22:00 64 20 153/60 94 L 10/01/20 21:00 68 15 139/63 94 L 10/01/20 20:00 99.1 F 63 15 146/64 96 10/01/20 19:00 71 16 150/55 94 L 10/01/20 18:01 98.5 F 71 18 151/91 10/01/20 18:00 72 23 151/91 91 L 10/01/20 17:00 66 23 151/52 92 L 10/01/20 16:00 98.9 F 63 20 150/55 95 10/01/20 15:00 65 21 147/49 94 L Intake and Output 10/01/20 10/02/20 10/02/20 22:59 06:59 14:59 Intake Total 400 400 100 Output Total 475 645 735 Balance -75 -245 -635 Intake: Intake, IV Titration 400 400 100 Amount Sodium Chloride 0.9% 1, 400 400 100 000 ml @ 50 mls/hr IV . Q20H [facility] Rx#:[id number] Output: Urine 389 582 739 Other: Voiding Method Indwelling Catheter Indwelling Catheter Indwelling Catheter Weight 120.1 kg 120.1 kg Results CBC & Chem 7: 10/02/20 03:39 10/02/20 03:39 Labs: Abnormal Lab Results - Last 24 Hours (Table) 10/01/20 10/01/20 10/01/20 Range/Units 14:44 16:04 18:04 RBC (3.80-5.40) m/uL Hgb (11.4-16.0) gm/dL Hct (34.0-46.0) % Chloride (98-107) mmol/L BUN (7-17) mg/dL Creatinine (0.52-1.04) mg/dL POC Glucose (mg/dL) 201 H 182 H 155 H (75-99) mg/dL Hemoglobin A1c (4.0-6.0) % Calcium (8.4-10.2) mg/dL 10/01/20 10/02/20 10/02/20 Range/Units 20:25 01:49 03:39 RBC (3.80-5.40) m/uL Hgb (11.4-16.0) gm/dL Hct (34.0-46.0) % Chloride (98-107) mmol/L BUN (7-17) mg/dL Creatinine (0.52-1.04) mg/dL POC Glucose (mg/dL) 214 H 132 H (75-99) mg/dL Hemoglobin A1c 6.8 H (4.0-6.0) % Calcium (8.4-10.2) mg/dL 10/02/20 10/02/20 10/02/20 Range/Units 03:39 03:39 06:03 RBC 2.96 L (3.80-5.40) m/uL Hgb 8.5 L (11.4-16.0) gm/dL Hct 26.4 L (34.0-46.0) % Chloride 108 H (98-107) mmol/L BUN 33 H (7-17) mg/dL Creatinine 1.88 H (0.52-1.04) mg/dL POC Glucose (mg/dL) 67 L (75-99) mg/dL Hemoglobin A1c (4.0-6.0) % Calcium 7.8 L (8.4-10.2) mg/dL 10/02/20 10/02/20 10/02/20 Range/Units 06:25 12:32 12:33 RBC (3.80-5.40) m/uL Hgb (11.4-16.0) gm/dL Hct (34.0-46.0) % Chloride (98-107) mmol/L BUN (7-17) mg/dL Creatinine (0.52-1.04) mg/dL POC Glucose (mg/dL) 73 L 35 L 43 L (75-99) mg/dL Hemoglobin A1c (4.0-6.0) % Calcium (8.4-10.2) mg/dL 10/02/20 Range/Units 13:01 RBC (3.80-5.40) m/uL Hgb (11.4-16.0) gm/dL Hct (34.0-46.0) % Chloride (98-107) mmol/L BUN (7-17) mg/dL Creatinine (0.52-1.04) mg/dL POC Glucose (mg/dL) 120 H (75-99) mg/dL Hemoglobin A1c (4.0-6.0) % Calcium (8.4-10.2) mg/dL Microbiology - Last 24 Hours (Table) 09/30/20 21:22 Urine Culture - Final Urine,Voided Assessment and Plan (1) Pressure ulcer of right heel, stage 2 Current Visit: Yes Status: Acute Code(s): L89.612 - PRESSURE ULCER OF RIGHT HEEL, STAGE 2 SNOMED Code(s): 183927588 (2) Nonhealing ulcer of right lower extremity with fat layer exposed Current Visit: Yes Status: Acute Code(s): L97.912 - NON-PRS [facility] UL UNSP PRT OF R LOW LEG W FAT LAYER EXPOSED SNOMED Code(s): 23761484 (3) Nonhealing ulcer of left lower extremity with fat layer exposed Current Visit: Yes Status: Acute Code(s): L97.922 - NON-PRS [facility] ULC UNSP PRT OF L LOW LEG W FAT LAYER EXPOSED SNOMED Code(s): 96254293 (4) Diabetes mellitus with skin ulcer Current Visit: No Status: Acute Code(s): E11.622 - TYPE 2 DIABETES MELLITUS WITH OTHER SKIN ULCER; L98.499 - NON-PRESSURE CHRONIC ULCER OF SKIN OF SITES W UNSP SEVERITY SNOMED Code(s): 79355247 (5) Diabetic foot ulcer associated with type 2 diabetes mellitus, with fat layer exposed Current Visit: No Status: Acute Code(s): E11.621 - TYPE 2 DIABETES MELLITUS WITH FOOT ULCER; L97.502 - NON-PRS CHRONIC ULCER OTH PRT UNSP FOOT W FAT LAYER EXPOSED SNOMED Code(s): 7585387404094
[2020-10-02 16:46] LABS: Glucose,Whole Blood 72 mg/dL (75-99)
[2020-10-02] MEDS ORDERED: FUROSEMIDE 10 MG/ML 4 ML VIAL IV STA (17:17)
[2020-10-02] MEDS ORDERED: amLODIPine 5 MG TAB PO STA (18:25)
[2020-10-02 19:04] LABS: Glucose,Whole Blood 112 mg/dL (75-99)
[2020-10-02 20:29] LABS: Glucose,Whole Blood 123 mg/dL (75-99)
[2020-10-02] MEDS: INSULIN DETEMIR (LEVEMIR) 100 UNIT/ML SYR SQ SCH (21:59)
[2020-10-02] MEDS: HYDROcodone/APAP 5-325MG 1 EACH TAB PO PRN (21:59)
[2020-10-03 05:11] LABS: Basophils % (A) 0 %; Eosinophils # (A) 0.4 k/uL (0-0.7); Eosinophils % (A) 5 %; HCT 29.2 % (34.0-46.0); HGB 9.4 gm/dL (11.4-16.0); Hypochromasia Slight; Lymphocytes # (A) 0.6 k/uL (1.0-4.8); Lymphocytes % (A) 9 %; MCH 28.7 pg (25.0-35.0); MCHC 32.2 g/dL (31.0-37.0); MCV 89.2 fL (80.0-100.0); Mean Platelet Volume 7.6; Monocytes # (A) 0.7 k/uL (0-1.0); Monocytes % (A) 9 %; Neutrophils # (A) 5.6 k/uL (1.3-7.7); Neutrophils % (A) 76 %; Platelet Count 213 k/uL (150-450); RBC 3.27 m/uL (3.80-5.40); RDW 14.9 % (11.5-15.5); WBC 7.4 k/uL (3.8-10.6)
[2020-10-03] MEDS: FUROSEMIDE 10 MG/ML 4 ML VIAL IV SCH ×2 (05:43→16:44)
[2020-10-03] MEDS: HYDROcodone/APAP 5-325MG 1 EACH TAB PO PRN (05:44)
[2020-10-03 06:33] LABS: Calcium 8.4 mg/dL (8.4-10.2); Potassium 4.7 mmol/L (3.5-5.1)
--- NOTE | 2020-10-03 06:38 | XR ---
EXAMINATION TYPE: XR chest 1V portable DATE OF EXAM: 10/03/2020 CLINICAL HISTORY: Difficulty breathing and congestion progress study. TECHNIQUE: Single AP portable upright view of the chest is obtained. COMPARISON: Chest x-ray from one day earlier and older studies. FINDINGS: Stable right internal jugular catheter sheath. Cardiac silhouette size stable and upper li mits of normal with atherosclerotic thoracic aorta. Persistent left basilar and right medial basilar opacities. Multilevel spurring in the spine. Degenerative change bilateral glenohumeral joints. IMPRESSION: Central vascular congestion with small left pleural effusion and left greater than right bibasilar acute infiltrate and/or atelectasis, no significant change from one day earlier.
[2020-10-03 06:56] LABS: Glucose,Whole Blood 45 mg/dL (75-99)
[2020-10-03] MEDS ORDERED: DEXTROSE 50% SYRINGE 50 ML IVP ONE (06:58)
[2020-10-03] MEDS: LEVOTHYROXINE 125 MCG TAB PO SCH (06:58)
[2020-10-03 06:59] LABS: Glucose,Whole Blood 47 mg/dL (75-99)
[2020-10-03] MEDS: DEXTROSE 50% SYRINGE 50 ML IVP ONE (06:59)
--- NOTE | 2020-10-03 07:16 | P.PN ---
Subjective Progress Note Date: 10/03/20 80-year-old female patient, brought into the hospital after being found on the floor discovered by family member. The patient did not have any major complaints initially. She was found to be bradycardic while being brought into the hospital and she was also evaluated in the emergency department. She was having increased weakness and lack of energy. In the ED, the patient was found to be bradycardic, hypotensive and her initial potassium level was 9.1. Repeat potassium level after treatment came down to 6.5. She got moved to the intensive care unit. She was hydrated with normal saline at the rate of 1 30 mL an hour and she was provided oxygen 2 L per minute nasal cannula. The patient was found to have an elevated TSH level and she was started on Synthroid. Her creatinine was elevated. Her white cell count wasn't 6.9 with a hemoglobin of 9.4 and normal coagulation profile. Covid 19 testing came back negative. ProBNP level was 2200 and the troponins were negative. She subsequently received temporary dialysis catheter placement on the the direction of nephrology and received hemodialysis for hyperkalemia. She has already undergone 2 sessions of hemodialysis. Chest x-ray revealed a left lower lobe pulmonary infiltrates with small pleural effusion. The patient otherwise doing well. The patient is producing adequate amount of urine output. Potassium level is normalized. No significant bradycardia. BP is controlled under Norvasc and the rest of the medications abdomen discontinued including Aldactone. The patient is producing adequate urine output in order of 50 mL an hour. Note that the patient's potassium level has normalized. On 10/03/2020, the patient is being seen for a follow-up. She is an awake and alert situation. No focal neurological deficit. This morning, she had a hypoglycemic event for which she was given D50. She is awake and alert no seiz ure activity has been noted. Note that the patient's renal function continues to improve in the creatinine is down to 1.5 and a potassium level is normal. Cardiac rhythm is sinus bradycardia and the mid 50s and there is no severe bradycardia or any significant cardiac arrhythmias noted. No cardiac block. The patient was not given hemodialysis yesterday. She has a Zhang catheter in place. Her lungs are getting slightly congested and she was given a dose of Lasix 40 mg IV and she produced adequate amount of urine output. This morning, her chest x-ray still showing pulmonary vascular congestion and possibly some small effusions in the lung bases. She continues to have a right-sided hem odialysis catheter in her right IJ. BP is under adequate control for now. Urine output is in order of 2.8 L in the past 12 hours and she is still producing adequate amount of urine output. Objective - Vital Signs Vital signs: Vital Signs Temp 98.7 F 10/03/20 04:00 Pulse 57 L 10/03/20 06:00 Resp 18 10/03/20 06:00 BP 161/61 10/03/20 06:00 Pulse Ox 95 10/03/20 06:00 Intake & Output 10/02/20 10/03/20 10/03/20 18:59 06:59 18:59 Intake Total 100 240 Output Total 1085 2855 Balance -985 -2615 Weight 120.1 kg Intake: Intake, IV Titration 100 Amount Sodium Chloride 0.9% 1, 100 000 ml @ 50 mls/hr IV . Q20H [facility] Rx#:[id number] Oral 240 Output: Urine 1085 2855 Other: Voiding Method Indwelling Catheter Indwelling Catheter - Exam GENERAL EXAM: Alert, 80-year-old female patient, on 5 L nasal cannula, comfortable in no apparent distress. She is awake and alert and she is following commands and answering questions HEAD: Normocephalic. EYES: Normal reaction of pupils, equal size. NOSE: Clear with pink turbinates. THROAT: No erythema or exudates. NECK: Right temporary hemodialysis catheter in place. No masses, no JVD. Patient has a temporary dialysis catheter in the right IJ. CHEST: No chest wall deformity. LUNGS: Equal air entry with faint crackles in the left base. CVS: S1 and S2 normal with no audible murmur, regular rhythm. ABDOMEN: No hepatosplenomegaly, normal bowel sounds, no guarding or rigidity. SPINE: No scoliosis or deformity SKIN: No rashes CENTRAL NERVOUS SYSTEM: No focal deficits, tone is normal in all 4 extremities. EXTREMITIES: There is no peripheral edema. No clubbing, no cyanosis. Peripheral pulses are intact. The patient has chronic venous ulcers lower extremities bilaterally on the ulcers are wrapped - Labs CBC & Chem 7: 10/03/20 04:42 10/03/20 04:42 Labs: Abnormal Lab Results - Last 24 Hours (Table) 10/02/20 10/02/20 10/02/20 Range/Units 03:39 12:32 12:33 RBC (3.80-5.40) m/uL Hgb (11.4-16.0) gm/dL Hct (34.0-46.0) % Lymphocytes # (1.0-4.8) k/uL Carbon Dioxide (22-30) mmol/L BUN (7-17) mg/dL Creatinine (0.52-1.04) mg/dL POC Glucose (mg/dL) 35 L 43 L (75-99) mg/dL Hemoglobin A1c 6.8 H (4.0-6.0) % 10/02/20 10/02/20 10/02/20 Range/Units 13:01 16:45 19:02 RBC (3.80-5.40) m/uL Hgb (11.4-16.0) gm/dL Hct (34.0-46.0) % Lymphocytes # (1.0-4.8) k/uL Carbon Dioxide (22-30) mmol/L BUN (7-17) mg/dL Creatinine (0.52-1.04) mg/dL POC Glucose (mg/dL) 120 H 72 L 112 H (75-99) mg/dL Hemoglobin A1c (4.0-6.0) % 10/02/20 10/03/20 10/03/20 Range/Units 20:27 04:42 04:42 RBC 3.27 L (3.80-5.40) m/uL Hgb 9.4 L (11.4-16.0) gm/dL Hct 29.2 L (34.0-46.0) % Lymphocytes # 0.6 L (1.0-4.8) k/uL Carbon Dioxide 33 H (22-30) mmol/L BUN 37 H (7-17) mg/dL Creatinine 1.53 H (0.52-1.04) mg/dL POC Glucose (mg/dL) 123 H (75-99) mg/dL Hemoglobin A1c (4.0-6.0) % 10/03/20 10/03/20 Range/Units 06:55 06:58 RBC (3.80-5.40) m/uL Hgb (11.4-16.0) gm/dL Hct (34.0-46.0) % Lymphocytes # (1.0-4.8) k/uL Carbon Dioxide (22-30) mmol/L BUN (7-17) mg/dL Creatinine (0.52-1.04) mg/dL POC Glucose (mg/dL) 45 L 47 L (75-99) mg/dL Hemoglobin A1c (4.0-6.0) % Microbiology - Last 24 Hours (Table) 09/30/20 21:22 Urine Culture - Final Urine,Voided Assessment and Plan Plan: 1 Acute kidney injury/ATN with secondary electrode disturbances, hyperkalemia, oligoria with secondary hypotension and hypoperfusion. The patient Had a temporary dialysis catheter inserted in the patient already received 2 sessions of hemodialysis, and electrolytes are being monitored very closely. The patient has been resuscitated IV fluids. The patient's creatinine is improving and the creatinine is down to 1.5. She has produced adequate amount of urine output. She received a dose of diuretic yesterday, 40 mg IV Lasix, and overnight she produces approximately 2.8 L of urine output. Nephrology is on the case. No significant electrolyte abnormalities. Potassium level today is at 4.7. 2 Junctional bradycardia with hypotension, secondary to hyperkalemia, and the patient was also using angiotensin receptor miesha and Aldactone outpatient basis. Potassium level is improving with hemodialysis. Potassium level is down to 4.7 and the patient has a component of sinus bradycardia with a heart rate in the mid 50s 2 Hyperkalemia with initial potassium of 9.1. Currently currently the level is down to 4.7 3 History of congestive heart failure, Echocardiogram from November 2020 showed a LV function was preserved with an ejection fraction of 55-60%. No significant valvular abnormalities. 4 History of chronic obstructive pulmonary disease 5 History of diabetes mellitus, with episodes of hypoglycemia that occurred this morning. Lantus dose will be reduced. 6 Hyperlipidemia 7 Hypertension, Maintained on a combination of Cozaar, Lasix and Norvasc and Coreg. The patient is also on Aldactone. 8 DJD 9 Hypothyroidism 10 Questionable right hilar mass on x-ray 11 metabolic encephalopathy with secondary altered mentation 12 hypothyroidism currently on Synthroid 100 g IV every 24 hours. The patient was receiving 100 g orally at home. 13 lower extremity edema and chronic venous ulcers involving the lower extremities, and the patient has multiple lower extremity wounds as various stages most of them stage II and the patient is receiving Therahoney Plan: Continue Lasix 40 mg every 12 hours Keep the patient off Aldactone Continue to monitor potassium, the levels have improved. Bradycardia has improved him on the patient's rhythm is back to sinus and the mid 50s. This patient's Synthroid back to oral at a dose of 125 g on a daily basis Reduced the Lantus dose to 20 units daily at bedtime and uses signs scale coverage. Patient's blood sugars are running lower and will watch for any signs of hypoglycemia. Provide diet physical therapy Venous also in lower extremities and the wounds are wrapped The temporary dialysis catheter may be potentially removed Chest x-ray shows a small effusion/ incentive pulmonary vascular congestion. The patient is currently on 5 L of oxygen by nasal cannula. She can be transferred out of the intensive care unit today.
[2020-10-03 07:19] LABS: Glucose,Whole Blood 139 mg/dL (75-99)
[2020-10-03] MEDS: INSULIN ASPART (NovoLOG) 100 UNIT/ML VIAL SQ SCH ×4 (08:29→20:38)
[2020-10-03] MEDS: ATORVASTATIN 20 MG TAB PO SCH (10:13)
[2020-10-03] MEDS: amLODIPine 5 MG TAB PO SCH (10:13)
--- NOTE | 2020-10-03 10:57 | P.PN ---
Subjective Progress Note Date: 10/03/20 HISTORY OF PRESENT ILLNESS: 10/02/2020 This is an 80-year-old female who was admitted to the hospital secondary to hyperkalemia and bradycardia. Patient's heart rate was in the 30s. Patient has received hemodialysis twice. Patient's heart rate is currently in the 50s and 60s. Patient's blood pressure was elevated yesterday and she was started on amlodipine. Potassium 4.8. 10/03/2020 Patient examined this morning in the ICU. Patient is resting comfortably. She denies chest pain or pressure. Currently denies shortness of breath. Telemetry reveals sinus mechanism with a heart rate in the 50s. PHYSICAL EXAM: VITAL SIGNS: Reviewed. GENERAL: Well-developed in no acute distress. NECK: Supple. No JVD or thyromegaly. LUNGS: Respirations even and unlabored. Lungs diminished bilaterally HEART: Regular rate and rhythm. S1 and S2 heard. EXTREMITIES: Normal range of motion. No clubbing or cyanosis. Peripheral pulses intact. bilateral lower extremity edema ASSESSMENT: Acute kidney injury Hyperkalemia, 9.1 on admission, resolved Junctional bradycardia with a heart rate in the 30s, improved COPD Diabetes mellitus Hypertension Hyperlipidemia PLAN: Continue amlodipine for blood pressure control Continue to monitor potassium levels Continue to hold beta blockers Further recommendations pending patient course Nurse practitioner note has been reviewed by physician. Signing provider agrees with the documented findings, assessment, and plan of care. Objective - Vital Signs Vital signs: Vital Signs Temp 977 F H 10/03/20 08:00 Pulse 61 10/03/20 10:00 Resp 19 10/03/20 10:00 BP 142/46 10/03/20 10:00 Pulse Ox 95 10/03/20 10:00 Intake & Output 10/02/20 10/03/20 10/03/20 18:59 06:59 18:59 Intake Total 100 240 120 Output Total 1085 2855 150 Balance -985 -2615 -30 Weight 120.1 kg Intake: Intake, IV Titration 100 Amount Sodium Chloride 0.9% 1, 100 000 ml @ 50 mls/hr IV . Q20H [facility] Rx#:[id number] Oral 240 120 Output: Urine 1085 2855 150 Other: Voiding Method Indwelling Catheter Indwelling Catheter Indwelling Catheter - Labs CBC & Chem 7: 10/03/20 04:42 10/03/20 04:42 Labs: Abnormal Lab Results - Last 24 Hours (Table) 10/02/20 10/02/20 10/02/20 Range/Units 03:39 12:32 12:33 RBC (3.80-5.40) m/uL Hgb (11.4-16.0) gm/dL Hct (34.0-46.0) % Lymphocytes # (1.0-4.8) k/uL Carbon Dioxide (22-30) mmol/L BUN (7-17) mg/dL Creatinine (0.52-1.04) mg/dL POC Glucose (mg/dL) 35 L 43 L (75-99) mg/dL Hemoglobin A1c 6.8 H (4.0-6.0) % 10/02/20 10/02/20 10/02/20 Range/Units 13:01 16:45 19:02 RBC (3.80-5.40) m/uL Hgb (11.4-16.0) gm/dL Hct (34.0-46.0) % Lymphocytes # (1.0-4.8) k/uL Carbon Dioxide (22-30) mmol/L BUN (7-17) mg/dL Creatinine (0.52-1.04) mg/dL POC Glucose (mg/dL) 120 H 72 L 112 H (75-99) mg/dL Hemoglobin A1c (4.0-6.0) % 10/02/20 10/03/20 10/03/20 Range/Units 20:27 04:42 04:42 RBC 3.27 L (3.80-5.40) m/uL Hgb 9.4 L (11.4-16.0) gm/dL Hct 29.2 L (34.0-46.0) % Lymphocytes # 0.6 L (1.0-4.8) k/uL Carbon Dioxide 33 H (22-30) mmol/L BUN 37 H (7-17) mg/dL Creatinine 1.53 H (0.52-1.04) mg/dL POC Glucose (mg/dL) 123 H (75-99) mg/dL Hemoglobin A1c (4.0-6.0) % 10/03/20 10/03/20 10/03/20 Range/Units 06:55 06:58 07:16 RBC (3.80-5.40) m/uL Hgb (11.4-16.0) gm/dL Hct (34.0-46.0) % Lymphocytes # (1.0-4.8) k/uL Carbon Dioxide (22-30) mmol/L BUN (7-17) mg/dL Creatinine (0.52-1.04) mg/dL POC Glucose (mg/dL) 45 L 47 L 139 H (75-99) mg/dL Hemoglobin A1c (4.0-6.0) % Microbiology - Last 24 Hours (Table) 09/30/20 21:22 Urine Culture - Final Urine,Voided
--- NOTE | 2020-10-03 11:11 | PN ---
PROGRESS NOTE Patient is seen for followup for acute kidney injury, severe hyperkalemia. Patient has had 2 treatments of hemodialysis. Currently renal function has been continuing to improve. Serum creatinine is down to 1.5. Potassium is at 4.7. Patient has had good urine output. She was started on Lasix. There is evidence of underlying volume overload. PHYSICAL EXAMINATION: On examination today, patient is comfortable, awake, alert, oriented x3, not in any acute distress. Blood pressure 131/54, heart rate 52 per minute. She is afebrile. EXAMINATION OF THE HEART: S1, S2. EXAMINATION OF THE LUNGS: Bilateral breath sounds are heard. Abdomen is soft, nontender. Examination of lower extremities shows edema 2+ bilaterally with superficial ulcer noted. INTERNET SOURCER exam grossly intact. LABS: Labs show sodium 141, potassium 4.7, chloride 106, CO2 is 33, BUN 37, creatinine 1.53, hemoglobin 9.4 g/dL. ASSESSMENT: 1. Acute kidney injury, acute tubular necrosis, currently improved. 2. Severe hyperkalemia associated with acute kidney injury, use of angiotensin receptor blockers and Aldactone, currently improved. Patient had 2 treatments of dialysis. She is diuresing well. 3. Volume overload ejection fraction on echocardiogram was 60% to 65% with moderately dilated left atrium. 4. Severe pulmonary hypertension. 5. Chronic lower extremity edema. PLAN: Continue with IV Lasix. Repeat labs in a.m. Will likely discontinue the dialysis catheter tomorrow. Continue to encourage increased oral intake. MMODL / IJN: [id number] /
--- NOTE | 2020-10-03 11:24 | CDI ---
Documentation Clarification Form Date: 10/03/2020 10:43:48 AM From: Zarina Banks RN, CCDS Admit Date: 09/30/2020 07:53:00 AM Patient Name: Jane Malone Visit Number: [id number] Discharge Date: ATTENTION: The Clinical Documentation Specialists (CDI) and [facility] Coding Staff appreciate your assistance in clarifying documentation. Please respond to the clarification below the line at the bottom and electronically sign. The CDI & [facility] Coding staff will review the response and follow-up if needed. Please note: Queries are made part of the Legal Health Record. If you have any questions, please contact the author of this message via ITS. Dr. Faisal Fleming CHF is documented in the past medical history. Please render your opinion on the type and acuity of CHF. History/Risk Factors: CHF, Hypertension, Diabetes mellitus Clinical Indicators: 80-year-olf female present to ED after found on the floor for unknown amount of time. EMS found low heart rate and marginal blood pressure. 09/30 VS/Pulse OX: 107/50 36 18 97.6 BNP: 2200 Echocardiogram Results: Resting bradycardia (HR,60 BPM) boarderline concentric left ventricular hypertrophy. Overall left ventricular systolic function is normal with, an EF between 60-64 % 09/30 Chest X Ray: There is some pleural fluid and infiltrate at the lung bases increased compared to exam this morning. There is probably some heart failure. 09/30: EKG Bradycardia with possible junctional rhythm 34 bpm Treatment: Lasix 40 MG IVP (10/02 X2) Lasix 40 MG IV Q 12 H Monitor I/O Monitor electrolytes, BUN, CR In your professional opinion, can you please clarify the acuity and type of CHF if known? Acute on Chronic Diastolic Heart Failure Chronic Diastolic Heart Failure Unable to Determine Other, please specify (Last Revision: October 2017) MTDD
--- NOTE | 2020-10-03 11:51 | CDI ---
Documentation Clarification Form Date: 10/03/2020 11:24:27 AM From: Zarina Banks RN, CCDS Admit Date: 09/30/2020 07:53:00 AM Patient Name: Jane Malone Visit Number: [id number] Discharge Date: ATTENTION: The Clinical Documentation Specialists (CDI) and [facility] Coding Staff appreciate your assistance in clarifying documentation. Please respond to the clarification below the line at the bottom and electronically sign. The CDI & [facility] Coding staff will review the response and follow-up if needed. Please note: Queries are made part of the Legal Health Record. If you have any questions, please contact the author of this message via ITS. Dr. Elaine Kim CKD is documented in the progress note on 10/02/19. . Please render your opinion on the stage of CKD. History/Risk Factors: CHF, Hypertension, Diabetes Mellitus, Renal disease Clinical Indicators: 80-year-old female found on floor. EMS noted, severely bradycardic with heart rate in the 30:s. Blood pressure was low and potassium was noted to be 9mEq/L. Serum creatinine was 2.24 and previous labs show serum creatinine of 1.2 on 01/03/2020 per progress notes on 10/01. 09/30 BUN 49, CR 2.24 GFR 20 10/01 BUN 37 CR 1.96 GFR 24 10/02 BUN 33 CR 1.88 GFR 25 10/03 BUN 37, CE 1.53, GFR 32 Treatment: Monitor BUN, CR, Electrolytes daily Hemodialysis per Nephrology Monitor Urine output (per orders) In order to capture the severity of condition, please clarify the stage of the CKD, if known: CKD Stage 1 (GFR > 90) CKD Stage 2 (GFR 60-89) CKD Stage 3a (GFR 45-59) CKD Stage 3b (GFR 30-44) CKD Stage 4 (GFR 15-29) CKD Stage 5 (GFR <15) ESRD Other, please specify Unable to determine [Template Last reviewed: March 2020] stage 3b MTDD
[2020-10-03 12:20] LABS: Glucose,Whole Blood 114 mg/dL (75-99)
[2020-10-03 17:12] LABS: Glucose,Whole Blood 80 mg/dL (75-99)
[2020-10-03 20:15] LABS: Glucose,Whole Blood 127 mg/dL (75-99)
[2020-10-03] MEDS: INSULIN DETEMIR (LEVEMIR) 100 UNIT/ML SYR SQ SCH (20:38)
[2020-10-04] MEDS: IPRATROPIUM-ALBUTEROL 3 ML NEB INHALATION PRN (04:12)
[2020-10-04] MEDS: FUROSEMIDE 10 MG/ML 4 ML VIAL IV SCH ×2 (05:33→16:42)
[2020-10-04] MEDS: LEVOTHYROXINE 125 MCG TAB PO SCH (05:34)
[2020-10-04 06:50] LABS: Glucose,Whole Blood 46 mg/dL (75-99)
[2020-10-04 07:13] LABS: Glucose,Whole Blood 89 mg/dL (75-99)
[2020-10-04] MEDS: ATORVASTATIN 20 MG TAB PO SCH (08:13)
[2020-10-04] MEDS: INSULIN ASPART (NovoLOG) 100 UNIT/ML VIAL SQ SCH ×4 (08:13→20:34)
[2020-10-04] MEDS: HYDROcodone/APAP 5-325MG 1 EACH TAB PO PRN ×2 (08:17→16:41)
--- NOTE | 2020-10-04 10:54 | P.PN ---
<Delicia Carpio - Last Filed: 10/04/20 10:49> Subjective Progress Note Date: 10/04/20 Principal diagnosis: Hyperkalemia, bradycardia 80-year-old female, brought into the emergency room, to be evaluated. She apparently was found to be on the floor at home, and was discovered by a family member. It was unclear as to how long she was down. Apparently she was able to call her daughter for assistance to came to help her. EMS was then called. She apparently did not have any major complaints initially, although she was found to be incontinent of stool and urine. She apparently was quite bradycardic and Route, and was evaluated in the emergency room by one of the ER physicians. In addition, additional history included weakness, with lack of energy. When I spoke to the ER physician, the patient was bradycardic, hypotensive, and the potassium was 9.1. Repeat potassium after treatment is now 6.5. The patient's currently in the intensive care unit. She's getting saline at 130 mL an hour, and O2 by nasal cannula at 2 L. We did add some Synthroid to her regimen as her thyroid-stimulating hormone was elevated. Her creatinine was 2.24. White count was 6.9, hemoglobin 9.4, hematocrit 30.9, and platelet count 289,000. PT, INR, and PTT were normal. Venous blood gas showed a pH of 7.24. Sodium 135 potassium 9.1, repeat 6.5, chlorides 117, CO2 14, anion gap 4, and BUN of 49 with creatinine of 2.24. CK was 195, troponin less than 0.012, N-terminal pro BNP 2200, and TSH was 7.130. COVID 19 testing was negative. The patient is seen today 10/01/2020 in follow-up in the intensive care unit. She is currently sitting up in bed. More awake and alert today. She is maintaining O2 saturation in the 90s on 2 L/m per nasal cannula. She hasn't 0.9 normal saline at 50 MLS per hour. She did receive a temporary hemodialysis catheter placement yesterday and received hemodialysis for her hyperkalemia. She is scheduled for dialysis again today. White count 10.7. Hemoglobin 9.3. Sodium 135. Potassium 6.0. Chloride 110. Creatinine 1.96. Chest x-ray shows stable left lower lobe infiltrate with small effusion. The patient is seen today 10/04/2020 in follow-up on the regular medical floor. She is currently sitting up in a chair at the bedside. Awake and alert in no acute distress. He is maintaining O2 saturations in the 90s on 3 L/m per nasal cannula. She's been afebrile. Hemodynamically stable. Urine culture revealed no growth. She remains on Lasix 40 mg IV every 12 hours, bronchodilators. Most recent sodium 141, potassium 4.7, creatinine 1.53. Follow-up labs pending. Nephrology may discontinue the hemodialysis catheter based on the findings. Objective - Vital Signs Vital signs: Vital Signs Temp 97.5 F L 10/04/20 04:46 Pulse 65 10/04/20 04:46 Resp 16 10/04/20 04:46 BP 133/53 10/04/20 04:46 Pulse Ox 99 10/04/20 04:46 Intake & Output 10/03/20 10/04/20 10/04/20 18:59 06:59 18:59 Intake Total 120 600 Output Total 150 Balance -30 600 Intake: Oral 120 600 Output: Urine 150 Other: Voiding Method Indwelling Catheter Toilet Toilet # Voids 1 3 1 - Exam GENERAL EXAM: Alert, 80-year-old female patient, on 3 L nasal cannula, comfortable in no apparent distress. HEAD: Normocephalic. EYES: Normal reaction of pupils, equal size. NOSE: Clear with pink turbinates. THROAT: No erythema or exudates. NECK: Right temporary hemodialysis catheter in place. No masses, no JVD. CHEST: No chest wall deformity. LUNGS: Equal air entry with faint crackles in the left base. CVS: S1 and S2 normal with no audible murmur, regular rhythm. ABDOMEN: No hepatosplenomegaly, normal bowel sounds, no guarding or rigidity. SPINE: No scoliosis or deformity SKIN: No rashes CENTRAL NERVOUS SYSTEM: No focal deficits, tone is normal in all 4 extremities. EXTREMITIES: There is no peripheral edema. No clubbing, no cyanosis. Peripheral pulses are intact. - Labs CBC & Chem 7: 10/03/20 04:42 10/03/20 04:42 Labs: Abnormal Lab Results - Last 24 Hours (Table) 10/03/20 10/03/20 10/04/20 Range/Units 12:19 20:14 06:48 POC Glucose (mg/dL) 114 H 127 H 46 L (75-99) mg/dL Assessment and Plan Assessment: 1 Junctional bradycardia with hypotension, secondary to hyperkalemia number recovered 2 Hyperkalemia with initial potassium of 9.1. Currently 4.7. 3 History of congestive heart failure 4 History of chronic obstructive pulmonary disease 5 History of diabetes mellitus 6 Hyperlipidemia 7 Hypertension 8 DJD 9 Hypothyroidism 10 Questionable right hilar mass on x-ray Plan: The patient was seen and evaluated by Dr. Munoz She is stable from the pulmonary and critical care standpoint Awaiting follow-up labs to determine if hemodialysis catheter still needed Nephrology is on the case Titrate down the FiO2 as tolerated Outpatient workup regarding right hilar mass I, the cosigning physician, performed a history & physical examination of the patient. Lungs sounds with crackles in left posterior base. Maintaining good O2 saturations in the 90s on 3 L/m per nasal cannula. I discussed the assessment and plan of care with my nurse practitioner, Delicia Carpio. I attest to the above note as dictated by her. <Avinash Munoz - Last Filed: 10/04/20 12:44> Objective - Vital Signs Vital signs: Vital Signs Temp 97.8 F 10/04/20 12:03 Pulse 69 10/04/20 12:03 Resp 18 10/04/20 12:03 BP 174/84 10/04/20 12:03 Pulse Ox 97 10/04/20 12:03 Intake & Output 10/03/20 10/04/20 10/04/20 18:59 06:59 18:59 Intake Total 120 600 Output Total 150 Balance -30 600 Intake: Oral 120 600 Output: Urine 150 Other: Voiding Method Indwelling Catheter Toilet Toilet # Voids 1 3 1 - Labs CBC & Chem 7: 10/03/20 04:42 10/04/20 10:59 Labs: Abnormal Lab Results - Last 24 Hours (Table) 10/03/20 10/04/20 10/04/20 Range/Units 20:14 06:48 10:59 Sodium 136 L (137-145) mmol/L Carbon Dioxide 32 H (22-30) mmol/L BUN 40 H (7-17) mg/dL Creatinine 1.31 H (0.52-1.04) mg/dL Glucose 199 H (74-99) mg/dL POC Glucose (mg/dL) 127 H 46 L (75-99) mg/dL 10/04/20 Range/Units 12:06 Sodium (137-145) mmol/L Carbon Dioxide (22-30) mmol/L BUN (7-17) mg/dL Creatinine (0.52-1.04) mg/dL Glucose (74-99) mg/dL POC Glucose (mg/dL) 216 H (75-99) mg/dL
--- NOTE | 2020-10-04 11:30 | P.PN ---
Subjective This is an 80-year-old female with a past medical history of type 2 diabetes, hypertension, chronic kidney disease. She was admitted to the hospital secondary to hyperkalemia and bradycardia. EKG revealed a junctional bradycardia. Patient's heart rate was in the 30s. Patient has received hemodialysis twice. Echocardiogram revealed left ventricular systolic function normal with an EF between 6065 percent, LA is mildly dilated, mild aortic valve stenosis with a mean gradient of 7.1 mmHg, mild MR, mild mitral stensois, mild to omoderate TR, severe pulmonary hypertension. Patient's blood pressure was elevated and she was started on amlodipine on 10/01. 10/04/2020 Patient examined this morning on general medical floor. Patient is resting in the chair in no acute distress. Patient alert and oriented x 3. She denies chest pain or pressure. Currently denies shortness of breath. Telemetry reveals sinus mechanism with a heart rate 60s-70s. Laboratory data reviewed, Potassium 4.7, serum creatinine 1.5, BUN 37, Sodium 141. PHYSICAL EXAM: VITAL SIGNS: Blood pressure 133/53, heart rate 65, afebrile, maintaining oxygen saturation is on 3 L nasal cannula GENERAL: Well-developed in no acute distress. NECK: Supple. No JVD or thyromegaly. LUNGS: Respirations even and unlabored. Lungs diminished bilaterally HEART: Regular rate and rhythm. S1 and S2 heard. EXTREMITIES: Normal range of motion. No clubbing or cyanosis. Peripheral pulses intact. trace bilateral lower extremity edema. ASSESSMENT: Acute kidney injury - improved. Hyperkalemia, 9.1 on admission, resolved, current potassium 4.7. Patient is being followed by Nephrology who is managing diuresis and hemodialysis. Junctional bradycardia with a heart rate in the 30s, improved. COPD Diabetes mellitus Hypertension Hyperlipidemia PLAN: Continue amlodipine for blood pressure control Continue to monitor electrolytes Continue to hold beta blockers We will sign off at this time. Please reach out with any further questions or concerns. Patient will follow up outpatient with Dr. Avila. Nurse practitioner note has been reviewed by physician. Signing provider agrees with the documented findings, assessment, and plan of care. Objective - Vital Signs Vital signs: Vital Signs Temp 977 F H 10/03/20 08:00 Pulse 63 10/03/20 11:00 Resp 15 10/03/20 11:00 BP 147/49 10/03/20 11:00 Pulse Ox 93 L 10/03/20 11:00 Intake & Output 10/02/20 10/03/20 10/03/20 18:59 06:59 18:59 Intake Total 100 240 120 Output Total 1085 2855 150 Balance -985 -2615 -30 Weight 120.1 kg Intake: Intake, IV Titration 100 Amount Sodium Chloride 0.9% 1, 100 000 ml @ 50 mls/hr IV . Q20H [facility] Rx#:[id number] Oral 240 120 Output: Urine 1085 2855 150 Other: Voiding Method Indwelling Catheter Indwelling Catheter Indwelling Catheter # Voids 1 - Labs CBC & Chem 7: 10/03/20 04:42 10/03/20 04:42 Labs: Abnormal Lab Results - Last 24 Hours (Table) 10/02/20 10/02/20 10/03/20 Range/Units 19:02 20:27 04:42 RBC 3.27 L (3.80-5.40) m/uL Hgb 9.4 L (11.4-16.0) gm/dL Hct 29.2 L (34.0-46.0) % Lymphocytes # 0.6 L (1.0-4.8) k/uL Carbon Dioxide (22-30) mmol/L BUN (7-17) mg/dL Creatinine (0.52-1.04) mg/dL POC Glucose (mg/dL) 112 H 123 H (75-99) mg/dL 10/03/20 10/03/20 10/03/20 Range/Units 04:42 06:55 06:58 RBC (3.80-5.40) m/uL Hgb (11.4-16.0) gm/dL Hct (34.0-46.0) % Lymphocytes # (1.0-4.8) k/uL Carbon Dioxide 33 H (22-30) mmol/L BUN 37 H (7-17) mg/dL Creatinine 1.53 H (0.52-1.04) mg/dL POC Glucose (mg/dL) 45 L 47 L (75-99) mg/dL 10/03/20 10/03/20 Range/Units 07:16 12:19 RBC (3.80-5.40) m/uL Hgb (11.4-16.0) gm/dL Hct (34.0-46.0) % Lymphocytes # (1.0-4.8) k/uL Carbon Dioxide (22-30) mmol/L BUN (7-17) mg/dL Creatinine (0.52-1.04) mg/dL POC Glucose (mg/dL) 139 H 114 H (75-99) mg/dL
[2020-10-04 11:40] LABS: African American GFR (CKD) 44 (>60 ml/min/1.73 sqM); Anion Gap 4 mmol/L; Blood Urea Nitrogen 40 mg/dL (7-17); Calcium 8.4 mg/dL (8.4-10.2); Carbon Dioxide 32 mmol/L (22-30); Chloride 100 mmol/L (98-107); Glucose 199 mg/dL (74-99); Non-African American GFR(CKD) 39 (>60 ml/min/1.73 sqM); Potassium 5.1 mmol/L (3.5-5.1); Sodium 136 mmol/L (137-145)
[2020-10-04 12:08] LABS: Glucose,Whole Blood 216 mg/dL (75-99)
--- NOTE | 2020-10-04 12:13 | PN ---
PROGRESS NOTE DATE OF SERVICE: 10/03/2020. CHIEF COMPLAINT: Hyperkalemia, renal failure, diabetes, anemia and failure to thrive. HISTORY OF PRESENT ILLNESS: This lady is doing a little bit better. She is awake and alert. She is not complaining of any pain or shortness of breath. PHYSICAL EXAMINATION: Her vital signs are normal. She does have a slight sinus tachycardia. Chest is clear. Cardiac exam is normal. Abdomen is soft. Extremities are being treated for a superficial venostasis ulcers. IMPRESSION: 1. Renal failure, acute. 2. Renal failure, chronic. 3. Hyperkalemia. 4. Poorly controlled diabetes mellitus. 5. Anemia. PLAN: She is doing well and will increase her activity and diet. She may be able to leave ICU soon. MMODL / IJN: [id number] /
[2020-10-04] MEDS: amLODIPine 5 MG TAB PO SCH (13:44)
[2020-10-04 17:20] LABS: Glucose,Whole Blood 175 mg/dL (75-99)
[2020-10-04 20:14] LABS: Glucose,Whole Blood 238 mg/dL (75-99)
[2020-10-04] MEDS: INSULIN DETEMIR (LEVEMIR) 100 UNIT/ML SYR SQ SCH (20:33)
--- NOTE | 2020-10-04 21:49 | PN ---
PROGRESS NOTE Patient is seen for followup for acute kidney injury and hyperkalemia. Her renal function has improved; creatinine down to 1.3. Patient has had good urine output. She remains on Lasix 40 mg IV q.12 hours. PHYSICAL EXAMINATION: On examination today, blood pressure 143/47, heart rate 73 per minute. She is afebrile. EXAMINATION OF THE HEART: S1 and S2. EXAMINATION OF LUNGS: Decreased breath sounds at bases. ABDOMEN: Soft, non-tender. Examination of lower extremities shows edema 1+ bilaterally. MANAGER OF SUPPLY CHAIN exam is grossly intact. LABS: Sodium 136, potassium 5.1, chloride 100, BUN 40, creatinine 1.3. ASSESSMENT: 1. Acute kidney injury, acute tubular necrosis, initially oliguric, currently nonoliguric with significantly improved renal function. Patient had 2 treatments of hemodialysis, mostly for hyperkalemia. We can remove her dialysis catheter. 2. Hyperkalemia associated with acute kidney injury, currently significantly improved. 3. Volume overload, maintained on IV Lasix. 4. Chronic kidney disease, stage 3. Previous creatinine about 1.2 in December of 2019. 5. Severe pulmonary hypertension. 6. Chronic lower extremity edema. PLAN: Discontinue dialysis catheter. Continue with IV Lasix for now. Repeat labs in a.m. MMODL / IJN: [id number] /
[2020-10-05] MEDS: LEVOTHYROXINE 125 MCG TAB PO SCH (05:56)
[2020-10-05] MEDS: FUROSEMIDE 10 MG/ML 4 ML VIAL IV SCH ×2 (05:56→16:01)
[2020-10-05 07:17] LABS: Glucose,Whole Blood 74 mg/dL (75-99)
[2020-10-05] MEDS: INSULIN ASPART (NovoLOG) 100 UNIT/ML VIAL SQ SCH ×4 (08:13→20:40)
[2020-10-05] MEDS: ATORVASTATIN 20 MG TAB PO SCH (08:22)
[2020-10-05] MEDS: amLODIPine 5 MG TAB PO SCH (08:22)
[2020-10-05 12:08] LABS: Glucose,Whole Blood 148 mg/dL (75-99)
[2020-10-05 13:44] VITALS: BMI 43.4
--- NOTE | 2020-10-05 17:11 | PN ---
PROGRESS NOTE Patient is seen for followup for acute kidney injury and hyperkalemia. Her renal function has significantly improved. Potassium was 5.1 yesterday. Patient denies any significant complaints. She is maintained on IV Lasix. PHYSICAL EXAMINATION: Blood pressure was 127/64, heart rate 68 per minute. She is afebrile. EXAMINATION OF THE HEART: S1 and S2. EXAMINATION OF LUNGS: Bilateral breath sounds are heard. ABDOMEN: Soft, non-tender, obese. Examination of lower extremities shows bilateral edema. Patient's legs are wrapped. DIRECT ENTRY MIDWIFE exam is grossly intact. LABS: Labs show sodium 136 from yesterday, potassium 5.1, serum creatinine 1.3 yesterday. ASSESSMENT: 1. Acute kidney injury, acute tubular necrosis, initially oliguric, currently nonoliguric and significantly improved. 2. Hyperkalemia associated with acute kidney injury, now resolved. 3. Volume overload, maintained on IV Lasix. 4. Chronic kidney disease, stage 3. Previous creatinine 1.2 in December of 2019; etiology nephrosclerosis. 5. Severe pulmonary hypertension. PLAN: Discontinue Randolph catheter. Continue with loop diuretics. Patient will continue with loop diuretics post discharge and we will hold off on the Cozaar and spironolactone for now, as potassium remains borderline. MMODL / IJN: [id number] /
[2020-10-05 17:45] LABS: Glucose,Whole Blood 196 mg/dL (75-99)
[2020-10-05 20:23] LABS: Glucose,Whole Blood 225 mg/dL (75-99)
[2020-10-05] MEDS: INSULIN DETEMIR (LEVEMIR) 100 UNIT/ML SYR SQ SCH (20:39)
--- NOTE | 2020-10-05 22:03 | PN ---
PROGRESS NOTE DATE OF SERVICE: 10/02/2020 CHIEF COMPLAINT: Renal failure, hyperkalemia, diabetes and general debility. HISTORY OF PRESENT ILLNESS: This lady remains fairly stable. She has been dialyzed. Potassium has come down into the normal range. Wound Care is seeing her for stasis ulcers with infection in the lower extremities. PHYSICAL EXAMINATION: She remains pale. Chest demonstrates shallow breath sounds. Her cardiac exam demonstrates tachycardia. The abdomen is protuberant. Extremities are now dressed. IMPRESSION: 1. Failure to thrive. 2. Acute on chronic renal failure. 3. Hyperkalemia. 4. Poorly controlled insulin-dependent diabetes mellitus. 5. Anemia. PLAN: Continue to follow while she is in the ICU, after which she will require placement arrangements. MMODL / IJN: [id number] /
--- NOTE | 2020-10-05 22:17 | PN ---
PROGRESS NOTE DATE OF SERVICE: 10/05/2020 CHIEF COMPLAINT: Hyperkalemia, failure to thrive, renal failure, insulin-dependent diabetes mellitus, and stasis ulcers of the lower extremities. HISTORY OF PRESENT ILLNESS: This lady continues to remain fairly stable. Wound Care is managing her leg wounds. PHYSICAL EXAMINATION: She remains pale. She remains very weak. Her chest is fairly clear, although there are occasional rhonchi and occasional rales. Cardiac exam is normal. The abdomen is soft, without masses. IMPRESSION: 1. Renal failure. 2. Failure to thrive. 3. General debility. 4. Hyperkalemia. 5. Insulin-dependent diabetes mellitus. 6. Venostasis disease with stasis ulcers. PLAN: Continue with local wound care to the legs and start to look at a discharge plan. MMODL / IJN: [id number] /
[2020-10-06] MEDS: FUROSEMIDE 10 MG/ML 4 ML VIAL IV SCH ×2 (06:01→17:55)
[2020-10-06] MEDS: LEVOTHYROXINE 125 MCG TAB PO SCH (06:02)
[2020-10-06 07:12] LABS: Glucose,Whole Blood 66 mg/dL (75-99)
[2020-10-06 07:32] LABS: Glucose,Whole Blood 85 mg/dL (75-99)
[2020-10-06] MEDS: INSULIN ASPART (NovoLOG) 100 UNIT/ML VIAL SQ SCH ×4 (07:36→20:04)
[2020-10-06] MEDS: ATORVASTATIN 20 MG TAB PO SCH (07:54)
[2020-10-06] MEDS: amLODIPine 5 MG TAB PO SCH (07:54)
[2020-10-06 12:17] LABS: Glucose,Whole Blood 154 mg/dL (75-99)
--- NOTE | 2020-10-06 17:07 | PN ---
PROGRESS NOTE Patient is seen for followup for acute kidney injury, hyperkalemia. Renal function has improved. Patient received 2 treatments of dialysis on initial admission. Her dialysis catheter was discontinued yesterday. She denies any significant complaints. She is currently being diuresed. Creatinine was down to 1.3 on 10/04/2020. PHYSICAL EXAMINATION: Blood pressure is 165/73, heart rate 71 per minute. Patient is afebrile. EXAMINATION OF THE HEART: S1 and S2. EXAMINATION OF LUNGS: Bilateral breath sounds are heard. ABDOMEN: Soft, non-tender, obese. Examination of lower extremities shows edema. Bilateral extremities are wrapped. HOTEL GUEST SERVICE AGENT exam is grossly intact. LABS: Labs are not available from today. Last creatinine was 1.3. Potassium was 5.1 on 10/04/2020. ASSESSMENT: 1. Acute kidney injury, acute tubular necrosis, associated with hypotension, currently improved significantly, with creatinine down to 1.3 from 2.24 on initial admission. 2. Chronic kidney disease, NKF stage III. Baseline creatinine 1.2 to 1.3, mostly stage IIIB. 3. Severe hyperkalemia associated with acute kidney injury, use of angiotensin receptor blockers and spironolactone prior to admission, now resolved. 4. Volume overload, maintained on IV Lasix q.12 hours, which we can continue. 5. Severe pulmonary hypertension and dilated left atrium. PLAN: Check labs today. Continue with IV Lasix. FAHAD / HEAVENLYN: [id number] /
[2020-10-06 17:50] LABS: Glucose,Whole Blood 122 mg/dL (75-99)
[2020-10-06 18:12] LABS: African American GFR (CKD) 34 (>60 ml/min/1.73 sqM); Anion Gap 4 mmol/L; Blood Urea Nitrogen 50 mg/dL (7-17); Calcium 8.9 mg/dL (8.4-10.2); Carbon Dioxide 36 mmol/L (22-30); Chloride 94 mmol/L (98-107); Glucose 117 mg/dL (74-99); Non-African American GFR(CKD) 29 (>60 ml/min/1.73 sqM); Potassium 5.2 mmol/L (3.5-5.1); Sodium 134 mmol/L (137-145)
[2020-10-06] MEDS: HYDROcodone/APAP 5-325MG 1 EACH TAB PO PRN (19:33)
[2020-10-06 19:50] LABS: Glucose,Whole Blood 205 mg/dL (75-99)
[2020-10-06] MEDS: INSULIN DETEMIR (LEVEMIR) 100 UNIT/ML SYR SQ SCH (20:03)
[2020-10-07] MEDS: FUROSEMIDE 10 MG/ML 4 ML VIAL IV SCH (05:24)
[2020-10-07 07:32] LABS: Glucose,Whole Blood 76 mg/dL (75-99)
[2020-10-07 07:32] LABS: Glucose,Whole Blood 66 mg/dL (75-99)
[2020-10-07] MEDS: INSULIN ASPART (NovoLOG) 100 UNIT/ML VIAL SQ SCH ×4 (07:51→20:30)
[2020-10-07] MEDS: LEVOTHYROXINE 125 MCG TAB PO SCH (09:18)
[2020-10-07] MEDS: amLODIPine 5 MG TAB PO SCH (09:18)
[2020-10-07] MEDS: ATORVASTATIN 20 MG TAB PO SCH (09:18)
[2020-10-07 11:26] LABS: Glucose,Whole Blood 185 mg/dL (75-99)
--- NOTE | 2020-10-07 12:59 | P.PN ---
Subjective Progress Note Date: 10/07/20 Principal diagnosis: This is a 80-year-old female seen in because of severe hyperkalemia secondary to medications, acute kidney injury that required dialysis for 2 sessions and she is off of dialysis. She is feeling much better denies any complaints. Able to walk with a walker. No dizziness no chest pain no shortness of breath no nausea vomiting good appetite she does have significant chronic stasis edema. She is known with chronic kidney disease with a baseline creatinine of 1.1 on 12/06/2019, and 1.2 on 01/03/2020, diabetes mellitus, hypertension pulmonary hypertension Objective - Vital Signs Vital signs: Vital Signs Temp 97.9 F 10/07/20 11:09 Pulse 76 10/07/20 11:09 Resp 18 10/07/20 11:09 BP 152/63 10/07/20 11:09 Pulse Ox 91 L 10/07/20 11:09 Intake & Output 10/06/20 10/07/20 10/07/20 18:59 06:59 18:59 Intake Total 240 Output Total 800 Balance -560 Weight 112 kg Intake: Oral 240 Output: Urine 800 Other: Voiding Method Toilet Toilet # Voids 3 On examination she is awake alert oriented comfortable. HEENT exam no JVP neck is supple no facial asymmetry Lungs are clear to auscultation good air entry bilaterally Heart sounds are unremarkable no murmur rub gallop Abdomen soft nontender Obese somewhat difficult to examine Extremities ankles chronic stasis edema with minimal pitting edema Neurologically awake alert oriented able to walk with a walker slowly - Labs CBC & Chem 7: 10/03/20 04:42 10/06/20 17:21 Labs: Abnormal Lab Results - Last 24 Hours (Table) 10/06/20 10/06/20 10/06/20 Range/Units 17:21 17:49 19:48 Sodium 134 L (137-145) mmol/L Potassium 5.2 H (3.5-5.1) mmol/L Chloride 94 L (98-107) mmol/L Carbon Dioxide 36 H (22-30) mmol/L BUN 50 H (7-17) mg/dL Creatinine 1.64 H (0.52-1.04) mg/dL Glucose 117 H (74-99) mg/dL POC Glucose (mg/dL) 122 H 205 H (75-99) mg/dL 10/07/20 10/07/20 Range/Units 07:09 11:11 Sodium (137-145) mmol/L Potassium (3.5-5.1) mmol/L Chloride (98-107) mmol/L Carbon Dioxide (22-30) mmol/L BUN (7-17) mg/dL Creatinine (0.52-1.04) mg/dL Glucose (74-99) mg/dL POC Glucose (mg/dL) 66 L 185 H (75-99) mg/dL Assessment and Plan Assessment: Impression 1. Acute kidney injury from medications and hypotension requiring dialysis because of severe hyperkalemia secondary to combination of ARB and Aldactone resolved. Creatinine was 1.31 as of 10/04/2020 but has gone up to 1.64 as of yesterday. 2. Chronic kidney disease, CK D stage III Baseline creatinine about 1.2 as of 01/03/2020, nephrosclerosis 3. Blood pressure at target 4. Mild degree of alkalosis bicarb is 36, on Lasix 40 every 12 IV. 5. Severe pulmonary hypertension with right ventricular systolic pressure is 61 mm Recommendation 1. Reduce Lasix, currently on 40 IV daily 12 Will change it to 40 by mouth twice a day.
[2020-10-07] MEDS: FUROSEMIDE 40 MG TAB PO SCH (17:08)
--- NOTE | 2020-10-07 17:15 | PN ---
PROGRESS NOTE DATE OF SERVICE: 10/06/2020 CHIEF COMPLAINT: Fall with failure to thrive, anemia, renal failure, hyperkalemia, and stasis ulcers of the lower extremities. HISTORY OF PRESENT ILLNESS: This lady seems to be doing well. She is awake and alert. She is not having any shortness of breath or chest pain. Renal function is back to near normal. She is doing fairly well. She is anxious to be discharged. I do not feel that this is a safe plan. PHYSICAL EXAMINATION: She remains pale. Chest is fairly clear. Cardiac exam is normal. Abdomen is soft and nontender. Both legs are wrapped from the knees down. IMPRESSION: 1. Fall. 2. Failure to thrive with general debility. 3. Uncontrolled diabetes. 4. Acute and chronic renal failure. 5. Hyperkalemia. 6. Venous stasis disease with stasis ulcers. PLAN: Continue inpatient management looking for an appropriate discharge plan. MMODL / IJN: [id number] /
[2020-10-07 17:27] LABS: Glucose,Whole Blood 146 mg/dL (75-99)
--- NOTE | 2020-10-07 17:29 | PN ---
PROGRESS NOTE DATE OF SERVICE: 10/07/2020. CHIEF COMPLAINT: Fall with generalized debility and failure to thrive. HISTORY OF PRESENT ILLNESS: This lady is doing fairly well. She is not ambulating, but she is sitting up, awake and alert. She is anxious to go home. PHYSICAL EXAMINATION: She remains slightly pale. Chest is clear. Cardiac exam is normal. Abdomen is soft, nontender. IMPRESSION: 1. Fall. 2. General debility and failure to thrive. 3. Poorly controlled insulin dependent diabetes mellitus. 4. Renal failure. 5. Dehydration. 6. Hyperkalemia. 7. Venous stasis disease with ulcers of the lower extremities. PLAN: Slowly progress activity and look for an appropriate and safe discharge plan. MMODL / IJN: [id number] /
[2020-10-07 19:55] LABS: Glucose,Whole Blood 256 mg/dL (75-99)
[2020-10-07 19:55] LABS: Appearance,Urine Clear (Clear); Bilirubin,Urine Negative (Negative); Blood,Urine Negative (Negative); Color,Urine Light Yellow; Glucose,Urine (UA) Negative (Negative); Ketones,Urine Negative (Negative); Leukocyte Esterase,Urine Negative (Negative); Nitrite,Urine Negative (Negative); Protein,Urine Negative (Negative); Specific Gravity,Urine 1.009 (1.001-1.035); Urobilinogen,Urine <2.0 mg/dL (<2.0)
[2020-10-07] MEDS: INSULIN DETEMIR (LEVEMIR) 100 UNIT/ML SYR SQ SCH (20:29)
[2020-10-08] MEDS: LEVOTHYROXINE 125 MCG TAB PO SCH (05:04)
[2020-10-08 07:04] LABS: Glucose,Whole Blood 74 mg/dL (75-99)
[2020-10-08] MEDS: INSULIN ASPART (NovoLOG) 100 UNIT/ML VIAL SQ SCH ×4 (07:40→21:50)
[2020-10-08 08:03] LABS: African American GFR (CKD) 33 (>60 ml/min/1.73 sqM); Anion Gap 7 mmol/L; Blood Urea Nitrogen 53 mg/dL (7-17); Calcium 8.9 mg/dL (8.4-10.2); Carbon Dioxide 33 mmol/L (22-30); Chloride 98 mmol/L (98-107); Glucose 61 mg/dL (74-99); Non-African American GFR(CKD) 28 (>60 ml/min/1.73 sqM); Potassium 5.1 mmol/L (3.5-5.1); Sodium 138 mmol/L (137-145)
[2020-10-08] MEDS: ATORVASTATIN 20 MG TAB PO SCH (08:25)
[2020-10-08] MEDS: amLODIPine 5 MG TAB PO SCH (08:25)
[2020-10-08] MEDS: FUROSEMIDE 40 MG TAB PO SCH ×2 (08:25→15:04)
[2020-10-08 11:43] LABS: Glucose,Whole Blood 142 mg/dL (75-99)
--- NOTE | 2020-10-08 14:23 | P.PN ---
Subjective Progress Note Date: 10/08/20 Principal diagnosis: This is a 80-year-old female seen because of severe hyperkalemia secondary to medications, acute kidney injury that required dialysis for 2 sessions and she is off of dialysis. She is feeling much better denies any complaints. Able to walk with a walker. No dizziness no chest pain no shortness of breath no nausea vomiting good appetite she does have significant chronic stasis edema. She is known with chronic kidney disease with a baseline creatinine of 1.1 on 12/06/2019, and 1.2 on 01/03/2020, diabetes mellitus, hypertension pulmonary hypertension Objective - Vital Signs Vital signs: Vital Signs Temp 98.1 F 10/08/20 11:26 Pulse 71 10/08/20 11:26 Resp 16 10/08/20 11:26 BP 148/73 10/08/20 11:26 Pulse Ox 91 L 10/08/20 11:26 Intake & Output 10/07/20 10/08/20 10/08/20 18:59 06:59 18:59 Other: Voiding Method Toilet # Voids 1 2 # Bowel Movements 1 On examination she is awake alert oriented comfortable. HEENT exam no JVP neck is supple no facial asymmetry Lungs are clear to auscultation good air entry bilaterally Heart sounds are unremarkable no murmur rub gallop Abdomen soft nontender Obese somewhat difficult to examine Extremities ankles chronic stasis edema with minimal pitting edema Neurologically awake alert oriented able to walk with a walker slowly - Labs CBC & Chem 7: 10/03/20 04:42 10/08/20 07:18 Labs: Abnormal Lab Results - Last 24 Hours (Table) 10/07/20 10/07/20 10/08/20 Range/Units 17:18 19:54 06:59 Carbon Dioxide (22-30) mmol/L BUN (7-17) mg/dL Creatinine (0.52-1.04) mg/dL Glucose (74-99) mg/dL POC Glucose (mg/dL) 146 H 256 H 74 L (75-99) mg/dL 10/08/20 10/08/20 Range/Units 07:18 11:32 Carbon Dioxide 33 H (22-30) mmol/L BUN 53 H (7-17) mg/dL Creatinine 1.69 H (0.52-1.04) mg/dL Glucose 61 L (74-99) mg/dL POC Glucose (mg/dL) 142 H (75-99) mg/dL Assessment and Plan Assessment: Impression 1. Acute kidney injury and severe hyperkalemia secondary to combination of ARB and Aldactone with hypotension requiring dialysis because of severe hyperkalemia resolved. Creatinine was 1.31 as of 10/04/2020 but has gone up to 1.64 as of yesterday, and today . 2. Chronic kidney disease, CK D stage III Baseline creatinine about 1.2 as of 01/03/2020, nephrosclerosis 3. Blood pressure at target 4. Mild degree of alkalosis bicarb is 36> 33, on Lasix 40 every 12 IV. 5. Severe pulmonary hypertension with right ventricular systolic pressure is 61 mm Recommendation 1. Continue Reduce dose of Lasix, 40 by mouth twice a day.
[2020-10-08 17:14] LABS: Glucose,Whole Blood 228 mg/dL (75-99)
[2020-10-08 20:22] LABS: Glucose,Whole Blood 166 mg/dL (75-99)
[2020-10-08] MEDS: INSULIN DETEMIR (LEVEMIR) 100 UNIT/ML SYR SQ SCH (21:50)
[2020-10-08] MEDS: HYDROcodone/APAP 5-325MG 1 EACH TAB PO PRN (21:50)
[2020-10-09 07:14] LABS: Glucose,Whole Blood 63 mg/dL (75-99)
[2020-10-09 07:36] LABS: Glucose,Whole Blood 96 mg/dL (75-99)
[2020-10-09] MEDS: amLODIPine 5 MG TAB PO SCH (08:57)
[2020-10-09] MEDS: INSULIN ASPART (NovoLOG) 100 UNIT/ML VIAL SQ SCH ×4 (08:57→20:36)
[2020-10-09] MEDS: LEVOTHYROXINE 125 MCG TAB PO SCH (08:57)
[2020-10-09] MEDS: FUROSEMIDE 40 MG TAB PO SCH ×2 (08:57→16:26)
[2020-10-09] MEDS: ATORVASTATIN 20 MG TAB PO SCH (08:57)
--- NOTE | 2020-10-09 11:49 | P.PN ---
Subjective Progress Note Date: 10/09/20 Principal diagnosis: Hyperkalemia. The patient is seen today 10/01/2020 in follow-up in the intensive care unit. She is currently sitting up in bed. More awake and alert today. She is maintaining O2 saturation in the 90s on 2 L/m per nasal cannula. She hasn't 0.9 normal saline at 50 MLS per hour. She did receive a temporary hemodialysis catheter placement yesterday and received hemodialysis for her hyperkalemia. She is scheduled for dialysis again today. White count 10.7. Hemoglobin 9.3. Sodium 135. Potassium 6.0. Chloride 110. Creatinine 1.96. Chest x-ray shows stable left lower lobe infiltrate with small effusion. The patient is seen today 10/04/2020 in follow-up on the regular medical floor. She is currently sitting up in a chair at the bedside. Awake and alert in no acute distress. He is maintaining O2 saturations in the 90s on 3 L/m per nasal cannula. She's been afebrile. Hemodynamically stable. Urine culture revealed no growth. She remains on Lasix 40 mg IV every 12 hours, bronchodilators. Most recent sodium 141, potassium 4.7, creatinine 1.53. Follow-up labs pending. Nephrology may discontinue the hemodialysis catheter based on the findings. Progress note dated 10/09/2020. The patient was initially seen in the ICU for hyperkalemia and renal failure, with bradycardia. Currently, the patient is doing much better. She's on room air. She's not receiving any IV fluids. There is some consideration of possible discharge in the next 24-48 hours. Most recent labs were done on October 08 and show a sodium 138, potassium 5.1, chlorides 98, CO2 33, anion gap 7, BUN 53, creatinine 1.69. When the patient was admitted, the patient had a potassium that was above 9 and she received emergent hemodialysis. Objective - Vital Signs Vital signs: Vital Signs Temp 98 F 10/09/20 05:00 Pulse 60 10/09/20 05:00 Resp 18 10/09/20 08:00 BP 128/50 10/09/20 05:00 Pulse Ox 92 L 10/09/20 05:00 Intake & Output 10/08/20 10/09/20 10/09/20 18:59 06:59 18:59 Weight 105.6 kg Other: Voiding Method Toilet Toilet # Voids 5 3 - Exam No acute distress, oriented 3. No supplemental oxygen or IV fluids. HEENT examination is grossly unremarkable. Mucous membranes are moist. No oral lesions. Neck supple. Full range of motion. No adenopathy thyromegaly or neck vein distention. Cardiovascular examination reveals regular rhythm rate. S1-S2 normal. No S3 or S4. No discernible murmur noted. Heart rate 60 bpm. Lungs reveal clear breath sounds. Her sounds are equal bilaterally. No adventitious lung sounds including wheezes rhonchi or crackles. Abdomen soft bowel sounds are heard. No masses or tenderness. Extremities are intact. No cyanosis clubbing or edema. Skin is without rash or lesion. Neurologic examination is brief but nonfocal. - Labs CBC & Chem 7: 10/03/20 04:42 10/08/20 07:18 Labs: Abnormal Lab Results - Last 24 Hours (Table) 10/08/20 10/08/20 10/09/20 Range/Units 17:01 20:20 07:12 POC Glucose (mg/dL) 228 H 166 H 63 L (75-99) mg/dL Assessment and Plan Assessment: Junctional bradycardia with hypotension, secondary to hyperkalemia. Hyperkalemia, with a potassium initially of 9.1, repeat 6.5. History of CHF. History of COPD. History of diabetes mellitus. History of hyperlipidemia. History of essential hypertension. History of DJD. History of pneumonia. History of hypothyroidism. Irritable bowel syndrome. Questionable right hilar mass on chest x-ray. Plan: Plan dated 09/30/2020. The patient's potassium has come down from 9.1 to 6.5. Nephrology has been c onsulted. The patient remains with a significant bradycardia. She will need an outpatient workup for potential right hilar mass. No additional recommendations are made at this time. We will continue to follow. Initially, the patient was to be started on norepinephrine but apparently the patient is currently not on norepinephrine. We did add back some Synthroid to her regimen. Additional rec ommendations and suggestions are forthcoming. Plan dated 10/09/2020. Currently, the patient's potassium is 5.1. Renal function has improved a bit. The patient is being considered for possible discharge from the hospital. Currently, the patient is not requiring any supplemental oxygen or IV fluids. Follow with appropriate. The patient was quite sick when she was initially admitted. She was admitted back on September 30. Additional recommendations and suggestions are forthcoming. Time with Patient: Less than 30
[2020-10-09 12:16] LABS: Glucose,Whole Blood 140 mg/dL (75-99)
--- NOTE | 2020-10-09 12:45 | MISC ---
MISCELLANOUS REPORT QUERY: Acute on chronic. MMODL / IJN: [id number] /
--- NOTE | 2020-10-09 15:39 | PN ---
PROGRESS NOTE Patient is seen for followup for acute kidney injury, volume overload. Her renal function has improved, with serum creatinine staying at about 1.6 mg/dL. PHYSICAL EXAMINATION: On examination today, blood pressure is 144/53, heart rate 69 per minute. Patient is afebrile. EXAMINATION OF THE HEART: S1 and S2. EXAMINATION OF LUNGS: Bilateral breath sounds are heard. ABDOMEN: Soft, non-tender. Examination of lower extremities shows edema 2+ bilaterally. Both extremities are wrapped. LABS: Labs from yesterday show sodium 138, potassium 5.1, BUN 53, serum creatinine 1.69. ASSESSMENT: 1. Acute kidney injury, acute tubular necrosis, currently improved; serum creatinine staying at about 1.6 mg/dL. Patient had 2 treatments of hemodialysis, mostly for hyperkalemia and oliguric renal failure. 2. Hyperkalemia on initial admission, now resolved. 3. Volume overload, currently being diuresed. 4. Chronic kidney disease, stage 3; previous creatinine as low as 1.1 and 1.2 in November and December of 2019. 5. Severe pulmonary hypertension. PLAN: Continue with the oral dose of Lasix. Maintain salt and fluid restriction post discharge and follow up as outpatient for CKD. MMODL / IJN: [id number] /
[2020-10-09 17:13] LABS: Glucose,Whole Blood 171 mg/dL (75-99)
--- NOTE | 2020-10-09 19:01 | PN ---
PROGRESS NOTE DATE OF SERVICE: 10/08/2020 CHIEF COMPLAINT: Fall with acute renal failure and hyperkalemia. HISTORY OF PRESENT ILLNESS: This lady continues to improve. She is getting stronger and is anxious to be discharged. PHYSICAL EXAMINATION: Her vital signs are normal. Chest is clear. Cardiac exam is normal. Abdomen is soft, nontender. She is still quite weak and does not ambulate well. She is pushing to go home. If there is no other plan that is appropriate for her, she probably will have to be sent home in the next day or two. MMODL / IJN: [id number] /
--- NOTE | 2020-10-09 19:05 | PN ---
PROGRESS NOTE DATE OF SERVICE: 10/09/2020 CHIEF COMPLAINT: Acute renal failure, hyperkalemia. HISTORY OF PRESENT ILLNESS: This lady is doing better each day. She cannot walk well, which makes it difficult to send her home. She is very anxious to be discharged. We will watch to see if she becomes more safely ambulatory before she is discharged. PHYSICAL EXAMINATION: Her chest is clear. Cardiac exam is normal. Abdomen is soft and nontender. IMPRESSION: 1. General debility and weakness. 2. Fall at home. 3. Chronic renal failure with acute exacerbation. 4. Hyperkalemia. PLAN: Work toward being able to discharge her home soon. MMODL / IJN: [id number] /
[2020-10-09 19:59] LABS: Glucose,Whole Blood 287 mg/dL (75-99)
[2020-10-09] MEDS: INSULIN DETEMIR (LEVEMIR) 100 UNIT/ML SYR SQ SCH (20:35)
[2020-10-09 21:19] VITALS: RESP 16
[2020-10-10] MEDS: HYDROcodone/APAP 5-325MG 1 EACH TAB PO PRN (00:01)
[2020-10-10 03:03] LABS: Glucose,Whole Blood 53 mg/dL (75-99)
[2020-10-10 03:18] LABS: Glucose,Whole Blood 81 mg/dL (75-99)
[2020-10-10 05:12] VITALS: BP 153/61; TEMP 97.9
[2020-10-10 07:16] LABS: Glucose,Whole Blood 72 mg/dL (75-99)
[2020-10-10] MEDS: INSULIN ASPART (NovoLOG) 100 UNIT/ML VIAL SQ SCH ×2 (07:45→13:38)
[2020-10-10] MEDS: LEVOTHYROXINE 125 MCG TAB PO SCH (08:02)
[2020-10-10] MEDS: amLODIPine 5 MG TAB PO SCH (08:03)
[2020-10-10] MEDS: ATORVASTATIN 20 MG TAB PO SCH (08:03)
[2020-10-10] MEDS: FUROSEMIDE 40 MG TAB PO SCH (08:03)
--- NOTE | 2020-10-10 09:52 | P.PN ---
Subjective Patient is seen in follow-up for acute kidney injury. Renal function stable as of yesterday. Has been voiding. Oral intake fair. No chest pain or shortness of breath. Vital signs are stable. General: The patient appeared well nourished and normally developed. HEENT: Head exam is unremarkable. Neck is without jugular venous distension. LUNGS: Breath sounds decreased. HEART: Rate and Rhythm are regular. ABDOMEN: Soft, nontender. EXTREMITITES: 1+ edema. Objective - Vital Signs Vital signs: Vital Signs Temp 97.9 F 10/10/20 05:00 Pulse 77 10/10/20 05:00 Resp 16 10/10/20 05:00 BP 153/61 10/10/20 05:00 Pulse Ox 96 10/10/20 05:00 Intake & Output 10/09/20 10/10/20 10/10/20 18:59 06:59 18:59 Intake Total 2420 590 Balance 2420 590 Weight 105 kg Intake: Oral 2420 590 Other: Voiding Method Toilet Toilet # Voids 7 3 - Labs CBC & Chem 7: 10/03/20 04:42 10/08/20 07:18 Labs: Abnormal Lab Results - Last 24 Hours (Table) 10/09/20 10/09/20 10/09/20 Range/Units 12:10 17:08 19:58 POC Glucose (mg/dL) 140 H 171 H 287 H (75-99) mg/dL 10/10/20 10/10/20 Range/Units 03:01 07:12 POC Glucose (mg/dL) 53 L 72 L (75-99) mg/dL Assessment and Plan Plan: Assessment: 1. Acute kidney injury secondary to ATN status post 2 treatments of hemodialysis this admission. Creatinine stable at 1.69 as of 10/08/20. 2. Chronic kidney disease stage IIIA with baseline creatinine in the range of 1.1-1.2 in November and December 2019. UA benign. Etiology is nephrosclerosis. 3. Volume overload maintained on oral diuretics. 4. Severe pulmonary hypertension. 5. Hyperkalemia on admission, resolved. 6. Hypertension with chronic kidney disease. Stable. 7. Diabetes mellitus. 8. Anemia of chronic kidney disease. Rule out iron deficiency. Plan: Maintain oral Lasix 40 mg twice daily. Low-salt diet. Avoid nephrotoxins. Check iron studies. Repeat electrolytes in the morning. Follow up outpatient 1 week post discharge.
[2020-10-10 10:16] VITALS: PULSE 70
--- NOTE | 2020-10-10 10:51 | MISC ---
MISCELLANOUS REPORT QUERY: Acute on chronic diastolic. MMODL / IJN: [id number] /
[2020-10-10 11:30] LABS: Glucose,Whole Blood 164 mg/dL (75-99)
[2020-10-10 16:27] LABS: % Iron Saturation 11.7 (12.00-45.00)
[2020-10-10 16:35] LABS: Ferritin 73.7 ng/mL (10.0-291.0)
--- NOTE | 2020-10-11 06:38 | DS ---
DISCHARGE SUMMARY CHIEF COMPLAINT: Fall with dehydration, prerenal azotemia and hyperkalemia. HISTORY OF PRESENT ILLNESS AND PHYSICAL EXAMINATION: Details of this lady's history and physical can be found in the initial workup. LABORATORY STUDIES: While she was in a hospital she had laboratory studies, details of which can be found in the laboratory section of her chart. COURSE IN THE HOSPITAL: After admission she was placed on bedrest, started on intravenous fluids and placed in ICU. Renal functions slowly improved and potassium came down. She was dialyzed once. She was stabilized and able to be moved to the regular floor where she was treated for venous stasis disease and ulcers of the lower extremities and started on physical therapy. She was improving and sugars were under good control. The renal function was tending toward normal. She refused any rehab and insisted on going home. She was discharged on the and sent home with home care and physical therapy in hopes that she will be able to maintain more safely than she has been. FINAL DIAGNOSIS: 1. Fall. 2. Dehydration. 3. Prerenal azotemia. 4. Chronic renal failure. 5. Hyperkalemia. 6. Uncontrolled diabetes mellitus. 7. Venous stasis disease with stasis ulcers and cellulitis. OPERATIONS: None. CONSULTATIONS: Intensive Medicine and Med Renal. MMODL / IJN: [id number] /
== END 2020-10-10 14:00 | disposition home health service (06) | DRG 682 ==
LOC: EC 06:33 → 2SICU 07:53 → 5NMEDONC 10-03 14:48
PROVIDERS: ADMIT Family Medicine; ATTEND Family Medicine
PROC: 05HM33Z Insertion of Infusion Device into Right Internal Jugular Vein, Percutaneous Approach (ICD-10-PCS; principal; 2020-09-30)
DX: N17.0 Acute kidney failure with tubular necrosis (principal); G93.41 Metabolic encephalopathy; I50.33 Acute on chronic diastolic (congestive) heart failure; J18.9 Pneumonia, unspecified organism; M62.82 Rhabdomyolysis; N39.0 Urinary tract infection, site not specified; I13.0 Hypertensive heart and chronic kidney disease with heart failure and stage 1 through stage 4 chronic kidney disease, or unspecified chronic kidney disease; L03.90 Cellulitis, unspecified; Z20.822 Contact with and (suspected) exposure to COVID-19; E87.4 Mixed disorder of acid-base balance; L97.912 Non-pressure chronic ulcer of unspecified part of right lower leg with fat layer exposed; L97.922 Non-pressure chronic ulcer of unspecified part of left lower leg with fat layer exposed; Z79.4 Long term (current) use of insulin; Z88.0 Allergy status to penicillin; E78.5 Hyperlipidemia, unspecified; M19.90 Unspecified osteoarthritis, unspecified site; Z82.49 Family history of ischemic heart disease and other diseases of the circulatory system; Z80.0 Family history of malignant neoplasm of digestive organs; R00.1 Bradycardia, unspecified; E87.5 Hyperkalemia; Z99.2 Dependence on renal dialysis; E86.0 Dehydration; R55 Syncope and collapse; Z91.19 Patient's noncompliance with other medical treatment and regimen; E11.22 Type 2 diabetes mellitus with diabetic chronic kidney disease; I95.0 Idiopathic hypotension; I50.9 Heart failure, unspecified; E03.9 Hypothyroidism, unspecified; J44.9 Chronic obstructive pulmonary disease, unspecified; E11.649 Type 2 diabetes mellitus with hypoglycemia without coma; I27.20 Pulmonary hypertension, unspecified; R62.7 Adult failure to thrive; E11.65 Type 2 diabetes mellitus with hyperglycemia; I83.009 Varicose veins of unspecified lower extremity with ulcer of unspecified site; Z87.01 Personal history of pneumonia (recurrent); K58.9 Irritable bowel syndrome, unspecified; D63.1 Anemia in chronic kidney disease; E11.622 Type 2 diabetes mellitus with other skin ulcer; N18.32 Chronic kidney disease, stage 3b; I87.8 Other specified disorders of veins; E11.621 Type 2 diabetes mellitus with foot ulcer; I25.10 Atherosclerotic heart disease of native coronary artery without angina pectoris; L89.612 Pressure ulcer of right heel, stage 2; M81.0 Age-related osteoporosis without current pathological fracture; R32 Unspecified urinary incontinence; Z79.890 Hormone replacement therapy; Z87.891 Personal history of nicotine dependence; Z90.49 Acquired absence of other specified parts of digestive tract
CPT/HCPCS: 36415; 71045; 72170; 80048; 80053; 81001; 81003; 82330; 82550; 82553; 82728; 82803; 83036; 83540; 83550; 83605; 83615; 83735; 83880; 84100; 84132; 84439; 84443; 84481; 84484; 85025; 85610; 85730; 86140; 86706; 87086; 87340; 87635; 90935; 93005; 93306; 94640; 96374; 96375; 96376; 99291

== ENCOUNTER 2021-05-11 13:20 | Inpatient (IN) | payer MEDICARE, OTHER ==
--- NOTE | 2021-05-11 14:14 | ED ---
General Adult HPI - General Chief complaint: Weakness Stated complaint: Fall Time Seen by Provider: 05/11/21 13:46 Source: patient, EMS, RN notes reviewed Mode of arrival: EMS Limitations: no limitations - History of Present Illness Initial comments: Patient is a pleasant 80-year-old female presenting to the emergency department for weakness and fall. Patient fell prior to arrival. Patient states her legs just gave out. Patient states she did hit her head. No loss of consciousness. Patient has been feeling more generally weak over the past one week. Patient is having some increased leg swelling. Patient does have chronic leg swelling. Patient has some intermittent dyspnea however this is chronic and unchanged for her. No chest pain. No isolated area of weakness. No confusion. - Related Data Home Medications Medication Instructions Recorded Confirmed Levothyroxine Sodium 100 mcg PO DAILY 10/02/19 09/30/20 Losartan [Cozaar] 50 mg PO DAILY 10/02/19 09/30/20 carvediloL [Coreg*] 12.5 mg PO DAILY 10/02/19 09/30/20 amLODIPine [Norvasc] 10 mg PO DAILY 10/18/19 09/30/20 Furosemide [Lasix] 40 mg PO DAILY 12/05/19 09/30/20 Atorvastatin [Lipitor] 40 mg PO DAILY 09/30/20 09/30/20 Insulin Aspart Protam & Aspart 10 unit SQ HS 09/30/20 09/30/20 [NovoLOG MIX 70-30 Flexpen] Insulin Aspart Protam & Aspart 28 unit SQ DAILY 09/30/20 09/30/20 [NovoLOG MIX 70-30 Flexpen] Allergies Allergy/AdvReac Type Severity Reaction Status Date / Time Penicillins Allergy Rash/Hives Verified 05/11/21 13:55 Review of Systems ROS Statement: Those systems with pertinent positive or pertinent negative responses have been documented in the HPI. ROS Other: All systems not noted in ROS Statement are negative. Constitutional: Denies: fever Eyes: Denies: eye pain ENT: Denies: ear pain Respiratory: Reports: as per HPI. Denies: cough Cardiovascular: Denies: chest pain Endocrine: Reports: fatigue Gastrointestinal: Denies: abdominal pain Genitourinary: Denies: dysuria Musculoskeletal: Denies: back pain Skin: Reports: lesions (Right foot lesion) Neurological: Reports: as per HPI, weakness. Denies: headache, confusion Past Medical History Past Medical History: Heart Failure, COPD, Diabetes Mellitus, Hyperlipidemia, Hypertension, Osteoarthritis (OA), Pneumonia, Skin Disorder, Thyroid Disorder Additional Past Medical History / Comment(s): PUL EDEMA, HIATL HERNIA, EDEMA TO LEGS AND BREAKDOWN/BLISTERS TO MARTÍN LEGS, IBS, EDEMA TO BILAT LE'S History of Any Multi-Drug Resistant Organisms: None Reported Past Surgical History: Cholecystectomy, Tonsillectomy Additional Past Surgical History / Comment(s): neck SX REMOVED BENIGN MASS OUT, RT BREAST BX-BENIGN, LASER EYE SX THINKS ON HER RT EYE. Past Anesthesia/Blood Transfusion Reactions: No Reported Reaction Past Psychological History: No Psychological Hx Reported Smoking Status: Former smoker Past Alcohol Use History: None Reported Past Drug Use History: None Reported - Past Family History Father Family Medical History: Hypertension, Myocardial Infarction ([place]) Additional Family Medical History / Comment(s): X3 [place], Mother Family Medical History: Cancer Additional Family Medical History / Comment(s): DIES FROM [place] General Exam Limitations: no limitations General appearance: alert, in no apparent distress Head exam: Present: normocephalic Eye exam: Present: normal appearance, PERRL, EOMI ENT exam: Present: normal oropharynx Neck exam: Present: normal inspection Respiratory exam: Present: normal lung sounds bilaterally Cardiovascular Exam: Present: regular rate, normal rhythm GI/Abdominal exam: Present: soft. Absent: tenderness Extremities exam: Present: pedal edema. Absent: calf tenderness Neurological exam: Present: alert, oriented X3 Expanded Neurological exam: Present: protecting the airway Patient oriented to: Present: person, place, time Speech: Present: fluid speech Motor strength exam: RUE: 5, LUE: 5, RLE: 3, LLE: 3 Eye Response: (4) open spontaneously Motor Response: (6) obeys commands Verbal Response: (5) oriented Psychiatric exam: Present: normal affect, normal mood Skin exam: Present: normal color Course Vital Signs 05/11/21 05/11/21 13:55 15:06 Temperature 98 F 98 F Pulse Rate 71 71 Respiratory 18 18 Rate Blood Pressure 191/56 182/91 O2 Sat by Pulse 93 L 94 L Oximetry EKG Findings - EKG Comments: EKG Findings:: Normal sinus rhythm with rate of 69. TN 180. QRS 80. QT 418. QTC 447. Normal axis. Normal QRS. No acute ST change. Medical Decision Making - Medical Decision Making Patient reevaluated and resting comfortably in bed. Patient updated on results and plan. Case discussed with Dr. Alonso, who will admit covering for Dr. Fleming. - Lab Data Result diagrams: 05/11/21 15:50 05/11/21 15:53 Lab Results 05/11/21 05/11/21 05/11/21 Range/Units 14:44 14:44 14:44 WBC (3.8-10.6) k/uL RBC (3.80-5.40) m/uL Hgb (11.4-16.0) gm/dL Hct (34.0-46.0) % MCV (80.0-100.0) fL MCH (25.0-35.0) pg MCHC (31.0-37.0) g/dL RDW (11.5-15.5) % Plt Count (150-450) k/uL MPV Neutrophils % % Lymphocytes % % Monocytes % % Eosinophils % % Basophils % % Neutrophils # (1.3-7.7) k/uL Lymphocytes # (1.0-4.8) k/uL Monocytes # (0-1.0) k/uL Eosinophils # (0-0.7) k/uL Basophils # (0-0.2) k/uL Hypochromasia Sodium 137 (137-145) mmol/L Potassium 6.1 H* (3.5-5.1) mmol/L Chloride 118 H (98-107) mmol/L Carbon Dioxide 13 L (22-30) mmol/L Anion Gap 6 mmol/L BUN 37 H (7-17) mg/dL Creatinine 1.43 H (0.52-1.04) mg/dL Est GFR (CKD-EPI)AfAm 40 (>60 ml/min/1.73 sqM) Est GFR (CKD-EPI)NonAf 35 (>60 ml/min/1.73 sqM) Glucose 265 H (74-99) mg/dL Plasma Lactic Acid Yvan 0.8 (0.7-2.0) mmol/L Calcium 8.8 (8.4-10.2) mg/dL Magnesium 2.5 H (1.6-2.3) mg/dL Total Bilirubin 0.3 (0.2-1.3) mg/dL AST 20 (14-36) U/L ALT 8 (4-34) U/L Alkaline Phosphatase 113 (38-126) U/L Troponin I <0.012 (0.000-0.034) ng/mL NT-Pro-B Natriuret Pep pg/mL Total Protein 6.1 L (6.3-8.2) g/dL Albumin 2.9 L (3.5-5.0) g/dL TSH 2.620 (0.465-4.680) mIU/L Free T4 1.44 (0.78-2.19) ng/dL Free T3 pg/mL 3.4 (2.8-5.3) pg/ml 05/11/21 05/11/21 05/11/21 Range/Units 14:44 15:50 15:53 WBC 9.3 (3.8-10.6) k/uL RBC 3.47 L (3.80-5.40) m/uL Hgb 9.7 L (11.4-16.0) gm/dL Hct 31.4 L (34.0-46.0) % MCV 90.7 (80.0-100.0) fL MCH 28.1 (25.0-35.0) pg MCHC 31.0 (31.0-37.0) g/dL RDW 15.5 (11.5-15.5) % Plt Count 286 (150-450) k/uL MPV 7.5 Neutrophils % 82 % Lymphocytes % 8 % Monocytes % 7 % Eosinophils % 2 % Basophils % 0 % Neutrophils # 7.6 (1.3-7.7) k/uL Lymphocytes # 0.8 L (1.0-4.8) k/uL Monocytes # 0.6 (0-1.0) k/uL Eosinophils # 0.2 (0-0.7) k/uL Basophils # 0.0 (0-0.2) k/uL Hypochromasia Moderate Sodium (137-145) mmol/L Potassium 6.0 H (3.5-5.1) mmol/L Chloride (98-107) mmol/L Carbon Dioxide (22-30) mmol/L Anion Gap mmol/L BUN (7-17) mg/dL Creatinine (0.52-1.04) mg/dL Est GFR (CKD-EPI)AfAm (>60 ml/min/1.73 sqM) Est GFR (CKD-EPI)NonAf (>60 ml/min/1.73 sqM) Glucose (74-99) mg/dL Plasma Lactic Acid Yvan (0.7-2.0) mmol/L Calcium (8.4-10.2) mg/dL Magnesium (1.6-2.3) mg/dL Total Bilirubin (0.2-1.3) mg/dL AST (14-36) U/L ALT (4-34) U/L Alkaline Phosphatase (38-126) U/L Troponin I (0.000-0.034) ng/mL NT-Pro-B Natriuret Pep 1420 pg/mL Total Protein (6.3-8.2) g/dL Albumin (3.5-5.0) g/dL TSH (0.465-4.680) mIU/L Free T4 (0.78-2.19) ng/dL Free T3 pg/mL (2.8-5.3) pg/ml - Radiology Data Radiology results: report reviewed (Computed tomography scan shows scalp contusion. No acute intercranial abnormality. No acute fracture or malalignme nt of the cervical spine.), image reviewed (Chest x-ray shows probable chronic pleural reaction. Pelvis x-ray shows no fracture.) Disposition Clinical Impression: Dehydration, Weakness, Fall Disposition: ADMITTED IP TO THIS [facility] Condition: Stable Is patient prescribed a controlled substance at d/c from ED?: No Referrals: Faisal Fleming MD [Primary Care Provider] - 1-2 days Decision Time: 16:19
[2021-05-11 15:21] LABS: Albumin 2.9 g/dL (3.5-5.0); Calcium 8.8 mg/dL (8.4-10.2); Magnesium 2.5 mg/dL (1.6-2.3); Total Bilirubin 0.3 mg/dL (0.2-1.3); Total Protein 6.1 g/dL (6.3-8.2)
[2021-05-11 15:24] LABS: Potassium 6.1 mmol/L (3.5-5.1)
[2021-05-11 15:36] LABS: T4, Free (Free Thyroxine) 1.44 ng/dL (0.78-2.19)
--- NOTE | 2021-05-11 15:53 | XR ---
EXAMINATION TYPE: XR chest 1V portable DATE OF EXAM: 05/11/2021 COMPARISON: Chest x-ray 10/03/2020 HISTORY: Weakness, fall, pain TECHNIQUE: Single frontal view of the chest is obtained. FINDINGS: Patient is rotated, there are overlying leads. There is no focal air space opacity or pneum othorax seen. Persistent blunting of the left costophrenic angle. The cardiac silhouette size is sta ble although the patient is rotated. The osseous structures are intact, there is thoracic spondylos is. IMPRESSION: There may be chronic pleural reaction at the left concerning angle, difficult to exclude effusion, rotated exam, follow-up PA and lateral chest x-ray when patient is stable
--- NOTE | 2021-05-11 15:57 | CT ---
EXAMINATION TYPE: CT brain todd byrne con DATE OF EXAM: 05/11/2021 COMPARISON: None HISTORY: 80-year-old female with pain after Weakness, fall with posterior head injury. CT DLP: 1416.7 mGycm Automated exposure control for dose reduction was used. Technique: Examination of the head was done in axial plane without intravenous contrast. Coronal and sagittal reconstructions performed. CT of the cervical spine was obtained in axial plane without intravenous injection of contrast mater ial. Coronal and sagittal reformatted images were obtained from the axial views for evaluation of f ractures, spinal alignment and canal. FINDINGS: Head: There is no evidence of acute intracranial hemorrhage, acute ischemic changes, mass, mass-effect, or extra-axial fluid collection. There is no effacement of cerebral sulci or basal subarachnoid cister ns. There is no hydrocephalus. There is no midline shift. Caro-white matter distinction is preserv ed. Left posterior scalp contusion. No underlying calvarial fracture. Moderate patchy white matter hypodensities in both cerebral hemispheres. Paranasal sinuses and mastoid air cells are well pneumatized. Orbits and globes are intact. Cervical spine: No craniocervical junction abnormalities, predental space widening, or prevertebral soft tissue swell ing. Reversal of the normal cervical lordosis. Preserved alignment. There appears to be a dextro convex curvature of the cervical spine. Bulky anterior endplate spondylosis mid to lower cervical spine. No acute fractures identified. Posterior disc bulge at C4-C5 may cause mild narrowing of the spinal canal. Retropharyngeal course of the bilateral internal carotid arteries. Mild left-sided neuroforaminal stenoses C3-C4 and C4-C5. Sagittal and coronal reformatted images confirm above findings. COMBINED IMPRESSION: 1. Left posterior scalp contusion. No acute intracranial abnormality seen. Moderate patchy burden of chronic small vessel disease. 2. No acute fracture or malalignment of the cervical spine. Bulky anterior endplate spondylosis mid t o lower cervical spine. Reversal of the normal cervical lordosis could be positional or due to muscle spasm.
--- NOTE | 2021-05-11 15:58 | XR ---
AP pelvis HISTORY: Trauma and pain Single frontal view the pelvis correlated to prior exam 09/30/2020 No significant interval change is evident. Atherosclerotic calcifications are noted incidentally. Bon e mineralization, joint spaces and alignment are stable. Degenerative disc changes are present in the lower lumbar spine. Patient's left hip is somewhat rotated, not seen en face due to positioning.. IMPRESSION: No acute fracture or dislocation is evident.
[2021-05-11 16:03] LABS: Basophils % (A) 0 %; Eosinophils # (A) 0.2 k/uL (0-0.7); Eosinophils % (A) 2 %; HCT 31.4 % (34.0-46.0); HGB 9.7 gm/dL (11.4-16.0); Hypochromasia Moderate; Lymphocytes # (A) 0.8 k/uL (1.0-4.8); Lymphocytes % (A) 8 %; MCH 28.1 pg (25.0-35.0); MCV 90.7 fL (80.0-100.0); Mean Platelet Volume 7.5; Monocytes # (A) 0.6 k/uL (0-1.0); Monocytes % (A) 7 %; Neutrophils # (A) 7.6 k/uL (1.3-7.7); Neutrophils % (A) 82 %; Platelet Count 286 k/uL (150-450); RBC 3.47 m/uL (3.80-5.40); RDW 15.5 % (11.5-15.5); WBC 9.3 k/uL (3.8-10.6)
[2021-05-11] MEDS ORDERED: NALOXONE 0.4 MG/ML 1 ML VIAL IV PRN (16:20)
[2021-05-11] MEDS: SODIUM CHLORIDE 0.9% 1,000 ML IV SCH (17:33)
[2021-05-11 19:13] LABS: Glucose,Whole Blood 233 mg/dL (75-99)
[2021-05-11 20:07] LABS: Glucose,Whole Blood 276 mg/dL (75-99)
[2021-05-11] MEDS: SYMBICORT 80-4.5 MCG INHALER INHALATION SCH (20:20)
[2021-05-11] MEDS: INSULIN ASPART (NovoLOG) 100 UNIT/ML VIAL SQ SCH (22:22)
[2021-05-11] MEDS: INSULN ASP PRT/INSULIN ASPART 100 UNIT/ML 10 ML VIAL SQ SCH (22:22)
[2021-05-11] MEDS: ACETAMINOPHEN TAB 325 MG TAB PO PRN (22:23)
[2021-05-11] MEDS: amLODIPine 10 MG TAB PO SCH (22:23)
[2021-05-12 05:39] LABS: Appearance,Urine Clear (Clear); Bilirubin,Urine Negative (Negative); Blood,Urine Negative (Negative); Color,Urine Yellow; Glucose,Urine (UA) 1+ (Negative); Hyaline Casts,Urine 1 /lpf (0-2); Ketones,Urine Negative (Negative); Leukocyte Esterase,Urine Negative (Negative); Mucus,Urine Rare /hpf; Nitrite,Urine Negative (Negative); Protein,Urine 1+ (Negative); RBC,Urine 1 /hpf (0-5); Specific Gravity,Urine 1.017 (1.001-1.035); Urobilinogen,Urine <2.0 mg/dL (<2.0); WBC,Urine <1 /hpf (0-5)
[2021-05-12 06:25] LABS: Glucose,Whole Blood 146 mg/dL (75-99)
[2021-05-12 06:45] LABS: Basophils % (A) 1 %; Eosinophils # (A) 0.5 k/uL (0-0.7); Eosinophils % (A) 7 %; HCT 30.2 % (34.0-46.0); HGB 9.2 gm/dL (11.4-16.0); Hypochromasia Moderate; Lymphocytes # (A) 0.7 k/uL (1.0-4.8); Lymphocytes % (A) 11 %; MCH 27.9 pg (25.0-35.0); MCHC 30.6 g/dL (31.0-37.0); MCV 91.3 fL (80.0-100.0); Mean Platelet Volume 7.4; Monocytes # (A) 0.5 k/uL (0-1.0); Monocytes % (A) 8 %; Neutrophils # (A) 4.7 k/uL (1.3-7.7); Neutrophils % (A) 72 %; Platelet Count 265 k/uL (150-450); RBC 3.31 m/uL (3.80-5.40); RDW 15.2 % (11.5-15.5); WBC 6.4 k/uL (3.8-10.6)
[2021-05-12 06:53] LABS: Partial Thromboplastin Time 22.1 sec (22.0-30.0); Prothrombin Time 10.3 sec (9.0-12.0)
[2021-05-12] MEDS: LEVOTHYROXINE 100 MCG TAB PO SCH (06:56)
[2021-05-12] MEDS: INSULIN ASPART (NovoLOG) 100 UNIT/ML VIAL SQ SCH ×4 (06:56→20:37)
[2021-05-12] MEDS: ACETAMINOPHEN TAB 325 MG TAB PO PRN ×3 (06:58→20:37)
[2021-05-12 07:00] LABS: Albumin 2.6 g/dL (3.5-5.0); Calcium 8.6 mg/dL (8.4-10.2); Potassium 5.6 mmol/L (3.5-5.1); Total Bilirubin 0.2 mg/dL (0.2-1.3); Total Protein 5.6 g/dL (6.3-8.2)
--- NOTE | 2021-05-12 08:43 | XR ---
EXAMINATION TYPE: XR chest 2V DATE OF EXAM: 05/12/2021 COMPARISON: Chest x-ray 05/11/2021 HISTORY: Abnormal chest x-ray TECHNIQUE: Frontal and lateral views of the chest are obtained. FINDINGS: Patchy airspace disease is suspected, patient is again rotated. Cardiac mediastinal silhou ette shows a similar appearance. There is persistent blunting left costophrenic angle. Interstitium i s increased. There are overlying leads. High riding right shoulder may be due to chronic rotator cuff tear. IMPRESSION: Possible interstitial edema, difficult to exclude pneumonia, follow-up PA and lateral ch est x-ray recommended when stable
[2021-05-12] MEDS ORDERED: INSULN ASP PRT/INSULIN ASPART 100 UNIT/ML 10 ML VIAL SQ SCH (09:00)
[2021-05-12] MEDS: carvediloL 12.5 MG TAB PO SCH ×2 (10:16→10:17)
[2021-05-12] MEDS: amLODIPine 10 MG TAB PO SCH (10:16)
[2021-05-12] MEDS: ATORVASTATIN 40 MG TAB PO SCH (10:17)
[2021-05-12] MEDS: SODIUM CHLORIDE 0.9% 1,000 ML IV SCH ×2 (10:17→17:43)
[2021-05-12 11:42] LABS: Glucose,Whole Blood 253 mg/dL (75-99)
--- NOTE | 2021-05-12 12:32 | P.HPIM ---
History of Present Illness H&P Date: 05/12/21 This is a pleasant 80-year-old female who presented to the with a fall secondary to generalized weakness. Patient is that she was exhibiting the bathroom with a walker and she just felt like she could not hold onto the walker anymore and she fell. She did hit her posterior head on the tub. There is no abrasion noted. She denied any dizziness or lightheadedness prior to fall. She states that she did not lose consciousness. She denied any blurry vision, chest pain or chest pressure. Had cervical spine CT completed shows left posterior scalp contusion, no acute intracranial abnormality seen. There is moderate patchy burden of chronic small vessel disease. There is no acute fracture or malalignment of the cervical spine. Pelvic x-ray was negative for any acute fracture or dislocation. Chest x-ray essentially chronic pleural reaction at the left concerning angle difficult to exclude effusion recommended a follow-up. Repeat chest x-ray this morning shows a possible interstitial edema, difficult to exclude pneumonia. Labs on admission show a hemoglobin of 9.7, potassium 6. 1, BUN of 37, creatinine 1.43, using 2.5, creatinine kinase 266, BNP of 1420, troponin negative. Her urinalysis is unremarkable. COVID-19 not detectable. She was treated with some hydration 0.9 at 75. Her creatinine is down to 1.35 and her potassium was 5.6. Due to oxygen is in no complains about shortness of breath at rest and exertion. We did order a d-dimer was found to be 2. Due to her elevated creatinine did order a V/Q perfusion scan to check for PEs. Vital signs show blood pressure 115/66, heart rate 63 sinus rhythm, afebrile, 92% on room air. We did consult wound care for some bilateral chronic wounds or lower extremities, there appears to be some erythema to the right mitchell as well as multiple areas of scabbing blisters to bilateral lower extremity is. She is quite edematous. REVIEW OF SYSTEMS: CONSTITUTIONAL: No fever, no malaise, Reports fatigue HEENT: No recent visual problems or hearing problems. Denied any sore throat. CARDIOVASCULAR: No chest pain, orthopnea, PND, no palpitations, no syncope. PULMONARY: Reports mild exertional dyspnea and chronic congested cough GASTROINTESTINAL: No diarrhea, no nausea, no vomiting, no abdominal pain. NEUROLOGICAL: No headaches, no weakness, no numbness. HEMATOLOGICAL: Denies any bleeding or petechiae. GENITOURINARY: Denies any burning micturition, frequency, or urgency. MUSCULOSKELETAL/RHEUMATOLOGICAL: Denies any joint pain, swelling, or any muscle pain. ENDOCRINE: Denies any polyuria or polydipsia. The rest of the 14-point review of systems is negative. PHYSICAL EXAMINATION: GENERAL: The patient is alert and oriented x3, not in any acute distress. Well developed, well nourished. HEENT: Pupils are round and equally reacting to light. EOMI. No scleral icterus. No conjunctival pallor. Normocephalic, atraumatic. No pharyngeal erythema. No thyromegaly. CARDIOVASCULAR: S1 and S2 present. No murmurs, rubs, or gallops. PULMONARY: Chest is clear to auscultation, no wheezing or crackles. ABDOMEN: Soft, nontender, nondistended, normoactive bowel sounds. No palpable organomegaly. MUSCULOSKELETAL: No joint swelling or deformity. EXTREMITIES: No cyanosis, clubbing. There is bilateral lower extremity +2 nonpitting edema, weeping NEUROLOGICAL: Gross neurological examination did not reveal any focal deficits. SKIN: bilateral LE wounds with scabbing, evidence of itching, pressure ulcer Left heal, area of erythema left mitchell. Assessment and Plan Assessment -dehydration secondary to poor oral intake and diuretics, lasix and losartan O/H -Generalized Weakness s/p fall d/t dehydration combined with oral diuretics and medical debility -Elevated DD - pending VQ scan, d/t elevated cr will not do a CTA -History of Heart failure, most recent EF 60 to 65%, not in acute exacerbation -Hyperkalemia -COPD -Diabetes Mellitus type 2 with hyperglycemia -Pulmonary Hypertension - recent echo september of 2020 -Chronic lower extremity wounds -Possible cellulitis -hypertension -history of hyperlipidemia -Acute on chronic kidney disease baseline creatinine 1.2 - due to acute tubular necrosis s/t hypovolemia and dehydration. Hold nephrotoxic agents, gentle hydration Plan IV fluids 0.9ns at 75 Hold losartan, can continue amlodipine and coreg PT/OT consult Wound consult Antibiotics for cellulitis GI prophylaxis Protonix DVT prophylaxis Lovenox FULL CODE Past Medical History Past Medical History: Heart Failure, COPD, Diabetes Mellitus, Hyperlipidemia, Hypertension, Osteoarthritis (OA), Pneumonia, Skin Disorder, Thyroid Disorder Additional Past Medical History / Comment(s): PUL EDEMA, HIATL HERNIA, EDEMA TO LEGS AND BREAKDOWN/BLISTERS TO MARTÍN LEGS, IBS, EDEMA TO BILAT LE'S History of Any Multi-Drug Resistant Organisms: None Reported Past Surgical History: Cholecystectomy, Tonsillectomy Additional Past Surgical History / Comment(s): neck SX REMOVED BENIGN MASS OUT, RT BREAST BX-BENIGN, LASER EYE SX THINKS ON HER RT EYE. Past Anesthesia/Blood Transfusion Reactions: No Reported Reaction Past Psychological History: No Psychological Hx Reported Smoking Status: Former smoker Past Alcohol Use History: None Reported Past Drug Use History: None Reported - Past Family History Father Family Medical History: Hypertension, Myocardial Infarction (MD) Additional Family Medical History / Comment(s): X3 MD, Mother Family Medical History: Cancer Additional Family Medical History / Comment(s): DIES FROM COLON [place] Medications and Allergies Home Medications Medication Instructions Recorded Confirmed Type Levothyroxine Sodium 100 mcg PO DAILY 10/02/19 05/11/21 History Losartan [Cozaar] 50 mg PO DAILY 10/02/19 05/11/21 History carvediloL [Coreg*] 12.5 mg PO DAILY 10/02/19 05/11/21 History amLODIPine [Norvasc] 10 mg PO DAILY 10/18/19 05/11/21 History Atorvastatin [Lipitor] 40 mg PO DAILY 09/30/20 05/11/21 History Insulin Aspart Protam & Aspart 10 unit SQ HS 09/30/20 05/11/21 History [NovoLOG MIX 70-30 Flexpen] Insulin Aspart Protam & Aspart 28 unit SQ DAILY 09/30/20 05/11/21 History [NovoLOG MIX 70-30 Flexpen] Budesonide/Formoterol Fumarate 2 puff INHALATION RT-BID 05/11/21 05/11/21 History [Symbicort 80-4.5 Mcg Inhaler] Spironolactone 25 mg PO DAILY 05/11/21 05/11/21 History Allergies Allergy/AdvReac Type Severity Reaction Status Date / Time Penicillins Allergy Rash/Hives Verified 05/11/21 13:55 Physical Exam Vitals: Vital Signs Temp Pulse Pulse Resp BP BP Pulse Ox 05/12/21 04:00 63 20 159/66 92 L 05/12/21 00:00 73 20 125/73 95 05/11/21 20:00 97.5 F L 69 18 168/63 96 05/11/21 18:55 97.4 F L 69 18 147/64 96 05/11/21 17:33 97.2 F L 75 16 163/56 95 05/11/21 16:53 97.5 F L 69 18 168/63 98 05/11/21 15:06 98 F 71 18 182/91 94 L 05/11/21 13:55 98 F 71 18 191/56 93 L Intake and Output 05/11/21 05/12/21 05/12/21 22:59 06:59 14:59 Intake Total 118 Output Total 2100 Balance -2099 118 Intake: Oral 118 Output: Urine 2100 Uretheral (Zhang) 500 Other: # Voids 1 2 Weight 113.398 kg 97.5 kg Results CBC & Chem 7: 05/12/21 06:25 05/12/21 06:25 Labs: Abnormal Lab Results - Last 24 Hours (Table) 05/11/21 05/11/21 05/11/21 Range/Units 14:44 14:44 15:50 RBC 3.47 L (3.80-5.40) m/uL Hgb 9.7 L (11.4-16.0) gm/dL Hct 31.4 L (34.0-46.0) % MCHC (31.0-37.0) g/dL Lymphocytes # 0.8 L (1.0-4.8) k/uL D-Dimer (<0.60) mg/L FEU Potassium 6.1 H* (3.5-5.1) mmol/L Chloride 118 H (98-107) mmol/L Carbon Dioxide 13 L (22-30) mmol/L BUN 37 H (7-17) mg/dL Creatinine 1.43 H (0.52-1.04) mg/dL Glucose 265 H (74-99) mg/dL POC Glucose (mg/dL) (75-99) mg/dL Magnesium 2.5 H (1.6-2.3) mg/dL Creatine Kinase 266 H (30-135) U/L Total Protein 6.1 L (6.3-8.2) g/dL Albumin 2.9 L (3.5-5.0) g/dL Urine Protein (Negative) Urine Glucose (UA) (Negative) Urine Mucus (None) /hpf 05/11/21 05/11/21 05/11/21 Range/Units 15:53 18:52 20:06 RBC (3.80-5.40) m/uL Hgb (11.4-16.0) gm/dL Hct (34.0-46.0) % MCHC (31.0-37.0) g/dL Lymphocytes # (1.0-4.8) k/uL D-Dimer (<0.60) mg/L FEU Potassium 6.0 H (3.5-5.1) mmol/L Chloride (98-107) mmol/L Carbon Dioxide (22-30) mmol/L BUN (7-17) mg/dL Creatinine (0.52-1.04) mg/dL Glucose (74-99) mg/dL POC Glucose (mg/dL) 233 H 276 H (75-99) mg/dL Magnesium (1.6-2.3) mg/dL Creatine Kinase (30-135) U/L Total Protein (6.3-8.2) g/dL Albumin (3.5-5.0) g/dL Urine Protein (Negative) Urine Glucose (UA) (Negative) Urine Mucus (None) /hpf 05/11/21 05/12/21 05/12/21 Range/Units 20:13 05:20 06:23 RBC (3.80-5.40) m/uL Hgb (11.4-16.0) gm/dL Hct (34.0-46.0) % MCHC (31.0-37.0) g/dL Lymphocytes # (1.0-4.8) k/uL D-Dimer 2.00 H (<0.60) mg/L FEU Potassium (3.5-5.1) mmol/L Chloride (98-107) mmol/L Carbon Dioxide (22-30) mmol/L BUN (7-17) mg/dL Creatinine (0.52-1.04) mg/dL Glucose (74-99) mg/dL POC Glucose (mg/dL) 146 H (75-99) mg/dL Magnesium (1.6-2.3) mg/dL Creatine Kinase (30-135) U/L Total Protein (6.3-8.2) g/dL Albumin (3.5-5.0) g/dL Urine Protein 1+ H (Negative) Urine Glucose (UA) 1+ H (Negative) Urine Mucus Rare H (None) /hpf 05/12/21 05/12/21 Range/Units 06:25 06:25 RBC 3.31 L (3.80-5.40) m/uL Hgb 9.2 L (11.4-16.0) gm/dL Hct 30.2 L (34.0-46.0) % MCHC 30.6 L (31.0-37.0) g/dL Lymphocytes # 0.7 L (1.0-4.8) k/uL D-Dimer (<0.60) mg/L FEU Potassium 5.6 H (3.5-5.1) mmol/L Chloride 121 H (98-107) mmol/L Carbon Dioxide 15 L (22-30) mmol/L BUN 33 H (7-17) mg/dL Creatinine 1.35 H (0.52-1.04) mg/dL Glucose 141 H (74-99) mg/dL POC Glucose (mg/dL) (75-99) mg/dL Magnesium (1.6-2.3) mg/dL Creatine Kinase (30-135) U/L Total Protein 5.6 L (6.3-8.2) g/dL Albumin 2.6 L (3.5-5.0) g/dL Urine Protein (Negative) Urine Glucose (UA) (Negative) Urine Mucus (None) /hpf Thrombosis Risk Factor Assmnt - Choose All That Apply Each Factor Represents 1 point: Obesity (BMI >25) Each Risk Factor Represents 3 Points: Age 75 years or older Thrombosis Risk Factor Assessment Total Risk Factor Score: 4 Thrombosis Risk Factor Assessment Level: Moderate Risk Assessment and Plan Time with Patient: Greater than 30
[2021-05-12] MEDS: SYMBICORT 80-4.5 MCG INHALER INHALATION SCH ×2 (13:12→21:01)
[2021-05-12] MEDS: ENOXAPARIN 40 MG/0.4 ML SYRINGE SQ SCH (13:32)
[2021-05-12 17:13] LABS: Glucose,Whole Blood 47 mg/dL (75-99)
[2021-05-12 17:13] LABS: Glucose,Whole Blood 45 mg/dL (75-99)
--- NOTE | 2021-05-12 17:28 | NM ---
EXAMINATION TYPE: NM pul vent and perfuse DATE OF EXAM: 05/12/2021 COMPARISON: NONE HISTORY: TECHNIQUE: Utilizing inhalation of 68.2 mCi Tc 99m DTPA aerosol and intravenous injection of 5.3 mCi of Tc 99m MAA, ventilation and perfusion images are acquired post injection in multiple projections. FINDINGS: There are small subsegmental perfusion defects in the periphery of both lungs. There is no ventilatio n/perfusion mismatch. There is no segmental type defect. IMPRESSION: Small peripheral subsegmental matching defects correspond to a low probability of pulmonary embolism.
[2021-05-12 17:33] LABS: Glucose,Whole Blood 69 mg/dL (75-99)
[2021-05-12 17:53] LABS: Glucose,Whole Blood 89 mg/dL (75-99)
[2021-05-12 18:12] LABS: Glucose,Whole Blood 112 mg/dL (75-99)
[2021-05-12 20:11] LABS: Glucose,Whole Blood 128 mg/dL (75-99)
[2021-05-12] MEDS: INSULN ASP PRT/INSULIN ASPART 100 UNIT/ML 10 ML VIAL SQ SCH (20:39)
[2021-05-13 06:15] LABS: Glucose,Whole Blood 108 mg/dL (75-99)
[2021-05-13] MEDS: INSULIN ASPART (NovoLOG) 100 UNIT/ML VIAL SQ SCH ×4 (06:26→21:10)
[2021-05-13] MEDS: PANTOPRAZOLE 40 MG TABLET PO SCH (06:31)
[2021-05-13] MEDS: LEVOTHYROXINE 100 MCG TAB PO SCH (06:31)
[2021-05-13] MEDS: INSULN ASP PRT/INSULIN ASPART 100 UNIT/ML 10 ML VIAL SQ SCH ×2 (08:44→21:11)
[2021-05-13] MEDS: ATORVASTATIN 40 MG TAB PO SCH (08:44)
[2021-05-13] MEDS: ENOXAPARIN 40 MG/0.4 ML SYRINGE SQ SCH (08:44)
[2021-05-13] MEDS: amLODIPine 10 MG TAB PO SCH (08:44)
[2021-05-13] MEDS: IPRATROPIUM-ALBUTEROL 3 ML NEB INHALATION PRN ×4 (08:51→19:49)
[2021-05-13] MEDS ORDERED: INSULN ASP PRT/INSULIN ASPART 100 UNIT/ML 10 ML VIAL SQ SCH (09:00)
[2021-05-13 09:05] LABS: Basophils % (A) 0 %; Eosinophils # (A) 0.8 k/uL (0-0.7); Eosinophils % (A) 9 %; HCT 31.7 % (34.0-46.0); HGB 9.5 gm/dL (11.4-16.0); Hypochromasia Marked; Lymphocytes # (A) 0.9 k/uL (1.0-4.8); Lymphocytes % (A) 10 %; MCH 27.8 pg (25.0-35.0); MCHC 29.9 g/dL (31.0-37.0); Mean Platelet Volume 7.5; Monocytes # (A) 0.6 k/uL (0-1.0); Monocytes % (A) 6 %; Neutrophils # (A) 6.5 k/uL (1.3-7.7); Neutrophils % (A) 73 %; Platelet Count 284 k/uL (150-450); RBC 3.41 m/uL (3.80-5.40); RDW 15.4 % (11.5-15.5); WBC 8.9 k/uL (3.8-10.6)
--- NOTE | 2021-05-13 09:10 | XR ---
EXAMINATION TYPE: XR chest 1V DATE OF EXAM: 05/13/2021 COMPARISON: Chest x-ray 05/12/2021 HISTORY: Shortness of breath TECHNIQUE: Single frontal view of the chest is obtained. FINDINGS: Patchy basilar density persists. No evident pneumothorax or sizable effusion. Cardiac medi astinal silhouette shows a similar appearance. There are overlying leads. The aorta is dense. Arthrop athy noted within the right shoulder. IMPRESSION: Possible basilar pneumonia. Follow-up PA and lateral chest x-ray when stable.
[2021-05-13] MEDS: SYMBICORT 80-4.5 MCG INHALER INHALATION SCH ×2 (09:12→19:49)
[2021-05-13 09:22] LABS: Calcium 8.8 mg/dL (8.4-10.2); Potassium 5.9 mmol/L (3.5-5.1)
[2021-05-13] MEDS: SODIUM CHLORIDE 0.9% 1,000 ML IV SCH (10:33)
--- NOTE | 2021-05-13 11:02 | P.PN ---
Subjective Progress Note Date: 05/13/21 This is a pleasant 80-year-old female who presented to the with a fall secondary to generalized weakness. Patient is that she was exhibiting the bathroom with a walker and she just felt like she could not hold onto the walker anymore and she fell. She did hit her posterior head on the tub. There is no abrasion noted. She denied any dizziness or lightheadedness prior to fall. She states that she did not lose consciousness. She denied any blurry vision, chest pain or chest pressure. Had cervical spine CT completed EC shows left posterior scalp contusion, no acute intracranial abnormality seen. There is moderate patchy burden of chronic small vessel disease. There is no acute fracture or m alalignment of the cervical spine. Pelvic x-ray was negative for any acute fracture or dislocation. Chest x-ray essentially chronic pleural reaction at the left concerning angle difficult to exclude effusion recommended a follow-up. Repeat chest x-ray this morning shows a possible interstitial edema, difficult to exclude pneumonia. Labs on admission show a hemoglobin of 9.7, potassium 6.1, BUN of 37, creatinine 1.43, using 2.5, creatinine kinase 266, BNP of 1420, troponin negative. Her urinalysis is unremarkable. COVID-19 not detectable. She was treated with some hydration 0.9 at 75. Her creatinine is down to 1.35 and her potassium was 5.6. Due to oxygen is in no complains about shortness of breath at rest and exertion. We did order a d-dimer was found to be 2. Due to her elevated creatinine did order a V/Q perfusion scan to check for PEs. Vital signs show blood pressure 115/66, heart rate 63 sinus rhythm, afebrile, 92% on room air. We did consult wound care for some bilateral chronic wounds or lower extremities, there appears to be some erythema to the right mitchell as well as multiple areas of scabbing blisters to bilateral lower extremity is. She is quite edematous. 05/13/2021 This morning patient is experiencing an increase in SOB at rest. Duonebs were ordered. Chest xray was repeated which shows possible basilar pneumonia. Doxycycline was started. Labs today show a hemoglobin of 9.5. Her white WBC is normal at 8.9. Sodium 142, potassium is elevated at 5.9. Chloride is 121, CO2 15. They're BUN is 36, creatinine 1.45. After reviewing chest x-ray will add a small dose of IV Lasix 40 mg by mouth daily. Wound care consult pending. PT OT pending. Vitals show blood pressure 108/58 she is 93% on 3L NC. Afebrile. VQ scan showing low probability for PE. ROS Constitutional: Denied any fatigue denied any fever. Cardio vascular: denied any chest pain, palpitations Gastrointestinal denied any nausea vomiting Pulmonary: Her pressure as of breath at rest, cough with sputum. Neurologic denied any new focal deficits All inpatient medications were reviewed and appropriate changes in these medications as dictated in the interval history and assessment and plan. PHYSICAL EXAMINATION: GENERAL: The patient is alert and oriented x3, not in any acute distress. Well developed, well nourished. HEENT: Pupils are round and equally reacting to light. EOMI. No scleral icterus. No conjunctival pallor. Normocephalic, atraumatic. No pharyngeal erythema. No thyromegaly. CARDIOVASCULAR: S1 and S2 present. No murmurs, rubs, or gallops. PULMONARY: There is expiratory wheezing. ABDOMEN: Soft, nontender, nondistended, normoactive bowel sounds. No palpable organomegaly. MUSCULOSKELETAL: No joint swelling or deformity. EXTREMITIES: No cyanosis, clubbing. There is bilateral lower extremity +2 nonpitting edema, weeping NEUROLOGICAL: Gross neurological examination did not reveal any focal deficits. SKIN: bilateral LE wounds with scabbing, evidence of itching, pressure ulcer Left heal, area of erythema left mitchell. Assessment and Plan Assessment -dehydration secondary to poor oral intake and diuretics, lasix and losartan O/H -Possible pneumonia, although unlikely as there is no elevated white count patient is afebrile, reviewing chest x-ray appears more as interstitial edema we will stop the fluids and add IV Lasix. -non anion gap metabolic acidosis, secondary to dehydration, and chronic kidney disease -Generalized Weakness s/p fall d/t dehydration combined with oral diuretics and medical debility -Elevated DD - pending VQ scan, d/t elevated cr will not do a CTA -History of Heart failure, most recent EF 60 to 65%, not in acute exacerbation -Hyperkalemia, -COPD -Diabetes Mellitus type 2 with hyperglycemia -Pulmonary Hypertension - recent echo september of 2020 -Chronic lower extremity wounds -Possible cellulitis -hypertension -history of hyperlipidemia -Acute on chronic kidney disease baseline creatinine 1.2 - due to acute tubular necrosis s/t hypovolemia and dehydration. Hold nephrotoxic agents. Plan Stop fluids add IV lasix 40 mg daily Hold losartan, can continue amlodipine and coreg Repeat AM labs PT/OT consult Wound consult ID consult Antibiotics for cellulitis GI prophylaxis Protonix DVT prophylaxis Lovenox FULL CODE Objective - Vital Signs Vital signs: Vital Signs Temp 97.4 F L 05/13/21 08:42 Pulse 68 05/13/21 09:08 Resp 18 05/13/21 08:42 BP 108/58 05/13/21 08:42 Pulse Ox 93 L 05/13/21 08:42 Intake & Output 05/12/21 05/13/21 05/13/21 18:59 06:59 18:59 Intake Total 568 Output Total 250 200 200 Balance 318 -200 -200 Weight 101.5 kg Intake: Oral 568 Output: Urine 250 200 200 - Labs CBC & Chem 7: 05/13/21 08:28 05/13/21 08:28 Labs: Abnormal Lab Results - Last 24 Hours (Table) 05/12/21 05/12/21 05/12/21 Range/Units 11:40 17:07 17:08 RBC (3.80-5.40) m/uL Hgb (11.4-16.0) gm/dL Hct (34.0-46.0) % MCHC (31.0-37.0) g/dL Lymphocytes # (1.0-4.8) k/uL Eosinophils # (0-0.7) k/uL Potassium (3.5-5.1) mmol/L Chloride (98-107) mmol/L Carbon Dioxide (22-30) mmol/L BUN (7-17) mg/dL Creatinine (0.52-1.04) mg/dL Glucose (74-99) mg/dL POC Glucose (mg/dL) 253 H 45 L 47 L (75-99) mg/dL 05/12/21 05/12/21 05/12/21 Range/Units 17:31 18:11 20:09 RBC (3.80-5.40) m/uL Hgb (11.4-16.0) gm/dL Hct (34.0-46.0) % MCHC (31.0-37.0) g/dL Lymphocytes # (1.0-4.8) k/uL Eosinophils # (0-0.7) k/uL Potassium (3.5-5.1) mmol/L Chloride (98-107) mmol/L Carbon Dioxide (22-30) mmol/L BUN (7-17) mg/dL Creatinine (0.52-1.04) mg/dL Glucose (74-99) mg/dL POC Glucose (mg/dL) 69 L 112 H 128 H (75-99) mg/dL 05/13/21 05/13/21 05/13/21 Range/Units 06:13 08:28 08:28 RBC 3.41 L (3.80-5.40) m/uL Hgb 9.5 L (11.4-16.0) gm/dL Hct 31.7 L (34.0-46.0) % MCHC 29.9 L (31.0-37.0) g/dL Lymphocytes # 0.9 L (1.0-4.8) k/uL Eosinophils # 0.8 H (0-0.7) k/uL Potassium 5.9 H (3.5-5.1) mmol/L Chloride 121 H (98-107) mmol/L Carbon Dioxide 15 L (22-30) mmol/L BUN 36 H (7-17) mg/dL Creatinine 1.45 H (0.52-1.04) mg/dL Glucose 123 H (74-99) mg/dL POC Glucose (mg/dL) 108 H (75-99) mg/dL Assessment and Plan Time with Patient: Greater than 30
[2021-05-13 11:39] LABS: Glucose,Whole Blood 128 mg/dL (75-99)
[2021-05-13] MEDS: DOXYCYCLINE 100 MG CAP PO SCH ×2 (12:40→21:37)
[2021-05-13] MEDS: ACETAMINOPHEN TAB 325 MG TAB PO PRN ×2 (12:40→21:08)
[2021-05-13] MEDS: FUROSEMIDE 10 MG/ML 4 ML VIAL IV SCH (12:40)
[2021-05-13 16:39] LABS: Glucose,Whole Blood 149 mg/dL (75-99)
[2021-05-13 20:21] LABS: Glucose,Whole Blood 225 mg/dL (75-99)
[2021-05-14] MEDS: IPRATROPIUM-ALBUTEROL 3 ML NEB INHALATION PRN ×3 (05:42→20:37)
[2021-05-14 06:05] LABS: Glucose,Whole Blood 93 mg/dL (75-99)
[2021-05-14] MEDS: INSULIN ASPART (NovoLOG) 100 UNIT/ML VIAL SQ SCH ×4 (06:37→20:43)
[2021-05-14] MEDS: PANTOPRAZOLE 40 MG TABLET PO SCH (06:38)
[2021-05-14] MEDS: LEVOTHYROXINE 100 MCG TAB PO SCH (06:38)
[2021-05-14] MEDS: INSULN ASP PRT/INSULIN ASPART 100 UNIT/ML 10 ML VIAL SQ SCH ×2 (06:41→20:43)
--- NOTE | 2021-05-14 08:08 | P.CONS ---
History of Present Illness - Reason for Consult Consult date: 05/13/21 Bilateral lower extremity wounds Requesting physician: Wilian Pope - Chief Complaint weakness and fall x 1 day - History of Present Illness History of present illness : Patient is 80-year-old female presenting to the ER 2 days ago for evaluation of weakness and fall apparently the patient fell prior to arrival and the patient mention her legs just gave out she did hit her head but no loss of consciousness and been complaining of feeling more weak for the past 1 week patient also having increasing swelling of the lower extremity and did have some ulceration especially to the right leg he did have dull aching pain 2-3 out of 10 and no radiation on presentation to the hospital patient was afebrile and no fever was recorded subsequently patient did have a normal white count creatinine was 1.45 urine has been negative estrella PCR was negative patient did have a chest x-ray chronic pleural reaction difficult to exclude effusion patient also have a pulmonary perfusion imaging low probability for PE patient did have a mild laceration to the right leg and to the right heel area but no drainage Review of system: CONSTITUTIONAL: Positive for weakness denies fever. EYES: No complaint. ENT: No complaint. RESPIRATORY as per history of present illness CARDIOVASCULAR: No complaint. GENITOURINARY: No complaint. GASTROINTESTINAL: No complaint. MUSCULOSKELETAL: No complaint. INTEGUMENTARY: As per history of present illness. PSYCHOLOGIC: No complaint. ENDOCRINE: No complaint. NEUROLOGIC: No complaint. Past medical history : Reviewed, documented below Past surgical history : Reviewed, documented below Social history: Reviewed, documented below Medications: Reviewed, as documented below EXAMINATION: Vital sigans= Reviewed and documented below GENERAL DESCRIPTION: Elderly female lying in bed, no distress. No tachypnea or accessory muscle of respiration use. HEENT: Shows Pallor , no scleral icterus. Oral mucous membrane is dry. NECK: Trachea central, no thyromegaly. LUNGS: Unlabored breathing. Decreased breath sound at the base. No wheeze or crackle. HEART: S1, S2, regular rate and rhythm. ABDOMEN: Soft, no tenderness , guarding or rigidity EXTREMITIES: Diffuse swelling to the lower extremity with some superficial ulceration minimal redness no drainage, right heel did have a deep tissue injury with no evidence of any ulceration no drainage. SKIN: No rash, no masses palpable. NEUROLOGICAL: The patient is awake, alert, oriented x3, mood and affect normal. LABS AND RADIOLOGY: Reviewed results see below Assessment : 1-patient presented to hospital with weakness and fall in this patient did have diffuse swelling to lower extremity some superficial ulceration and possible mild cellulitis likely from gram-positive skin belinda 2-deep tissue injury to the right heel area no cellulitis 3-penicillin allergy that would limit the number of antibiotics safe to use Plan: 1-patient to continue with the doxycycline 100 twice a day plan for about a week of therapy 2-Silvadene cream to the erythematous area and Arnoldo wrap to keep the swelling down 3-heel protectors We will follow on clinical condition and cultures to further adjust medication if needed Thank you for consultation we will follow the patient along with you Past Medical History Past Medical History: Heart Failure, COPD, Diabetes Mellitus, Hyperlipidemia, Hypertension, Osteoarthritis (OA), Pneumonia, Skin Disorder, Thyroid Disorder Additional Past Medical History / Comment(s): PUL EDEMA, HIATL HERNIA, EDEMA TO LEGS AND BREAKDOWN/BLISTERS TO MARTÍN LEGS, IBS, EDEMA TO BILAT LE'S History of Any Multi-Drug Resistant Organisms: None Reported Past Surgical History: Cholecystectomy, Tonsillectomy Additional Past Surgical History / Comment(s): neck SX REMOVED BENIGN MASS OUT, RT BREAST BX-BENIGN, LASER EYE SX THINKS ON HER RT EYE. Past Anesthesia/Blood Transfusion Reactions: No Reported Reaction Past Psychological History: No Psychological Hx Reported Smoking Status: Former smoker Past Alcohol Use History: None Reported Past Drug Use History: None Reported - Past Family History Father Family Medical History: Hypertension, Myocardial Infarction (CA) Additional Family Medical History / Comment(s): X3 CA, Mother Family Medical History: Cancer Additional Family Medical History / Comment(s): DIES FROM COLON CA Medications and Allergies Home Medications Medication Instructions Recorded Confirmed Type Levothyroxine Sodium 100 mcg PO DAILY 10/02/19 05/11/21 History Losartan [Cozaar] 50 mg PO DAILY 10/02/19 05/11/21 History carvediloL [Coreg*] 12.5 mg PO DAILY 10/02/19 05/11/21 History amLODIPine [Norvasc] 10 mg PO DAILY 10/18/19 05/11/21 History Atorvastatin [Lipitor] 40 mg PO DAILY 09/30/20 05/11/21 History Insulin Aspart Protam & Aspart 10 unit SQ HS 09/30/20 05/11/21 History [NovoLOG MIX 70-30 Flexpen] Insulin Aspart Protam & Aspart 28 unit SQ DAILY 09/30/20 05/11/21 History [NovoLOG MIX 70-30 Flexpen] Budesonide/Formoterol Fumarate 2 puff INHALATION RT-BID 05/11/21 05/11/21 History [Symbicort 80-4.5 Mcg Inhaler] Spironolactone 25 mg PO DAILY 05/11/21 05/11/21 History Allergies Allergy/AdvReac Type Severity Reaction Status Date / Time Penicillins Allergy Rash/Hives Verified 05/11/21 13:55 Physical Exam Vitals: Vital Signs Temp Pulse Pulse Resp BP Pulse Ox 05/13/21 15:26 65 05/13/21 15:15 58 L 94 L 05/13/21 13:41 18 05/13/21 12:28 68 05/13/21 12:25 97.8 F 59 L 18 122/79 94 L 05/13/21 12:12 72 05/13/21 09:08 68 05/13/21 08:51 64 05/13/21 08:42 97.4 F L 68 18 108/58 93 L 05/13/21 04:00 61 20 125/65 95 05/13/21 00:00 62 20 119/64 95 05/12/21 20:00 97.6 F 57 L 20 117/66 95 Intake and Output 05/13/21 05/13/21 05/13/21 06:59 14:59 22:59 Intake Total 240 Output Total 200 200 600 Balance -200 40 -600 Intake: Oral 240 Output: Urine 200 200 600 Other: Weight 101.5 kg Results CBC & Chem 7: 05/13/21 08:28 05/13/21 08:28 Labs: Abnormal Lab Results - Last 24 Hours (Table) 05/12/21 05/12/21 05/12/21 Range/Units 17:07 17:08 17:31 RBC (3.80-5.40) m/uL Hgb (11.4-16.0) gm/dL Hct (34.0-46.0) % MCHC (31.0-37.0) g/dL Lymphocytes # (1.0-4.8) k/uL Eosinophils # (0-0.7) k/uL Potassium (3.5-5.1) mmol/L Chloride (98-107) mmol/L Carbon Dioxide (22-30) mmol/L BUN (7-17) mg/dL Creatinine (0.52-1.04) mg/dL Glucose (74-99) mg/dL POC Glucose (mg/dL) 45 L 47 L 69 L (75-99) mg/dL 05/12/21 05/12/21 05/13/21 Range/Units 18:11 20:09 06:13 RBC (3.80-5.40) m/uL Hgb (11.4-16.0) gm/dL Hct (34.0-46.0) % MCHC (31.0-37.0) g/dL Lymphocytes # (1.0-4.8) k/uL Eosinophils # (0-0.7) k/uL Potassium (3.5-5.1) mmol/L Chloride (98-107) mmol/L Carbon Dioxide (22-30) mmol/L BUN (7-17) mg/dL Creatinine (0.52-1.04) mg/dL Glucose (74-99) mg/dL POC Glucose (mg/dL) 112 H 128 H 108 H (75-99) mg/dL 05/13/21 05/13/21 05/13/21 Range/Units 08:28 08:28 11:37 RBC 3.41 L (3.80-5.40) m/uL Hgb 9.5 L (11.4-16.0) gm/dL Hct 31.7 L (34.0-46.0) % MCHC 29.9 L (31.0-37.0) g/dL Lymphocytes # 0.9 L (1.0-4.8) k/uL Eosinophils # 0.8 H (0-0.7) k/uL Potassium 5.9 H (3.5-5.1) mmol/L Chloride 121 H (98-107) mmol/L Carbon Dioxide 15 L (22-30) mmol/L BUN 36 H (7-17) mg/dL Creatinine 1.45 H (0.52-1.04) mg/dL Glucose 123 H (74-99) mg/dL POC Glucose (mg/dL) 128 H (75-99) mg/dL 05/13/21 Range/Units 16:36 RBC (3.80-5.40) m/uL Hgb (11.4-16.0) gm/dL Hct (34.0-46.0) % MCHC (31.0-37.0) g/dL Lymphocytes # (1.0-4.8) k/uL Eosinophils # (0-0.7) k/uL Potassium (3.5-5.1) mmol/L Chloride (98-107) mmol/L Carbon Dioxide (22-30) mmol/L BUN (7-17) mg/dL Creatinine (0.52-1.04) mg/dL Glucose (74-99) mg/dL POC Glucose (mg/dL) 149 H (75-99) mg/dL
[2021-05-14] MEDS: SYMBICORT 80-4.5 MCG INHALER INHALATION SCH ×2 (08:16→20:37)
[2021-05-14 08:43] LABS: Basophils % (A) 0 %; Eosinophils # (A) 0.5 k/uL (0-0.7); Eosinophils % (A) 7 %; HCT 29.7 % (34.0-46.0); HGB 9.1 gm/dL (11.4-16.0); Hypochromasia Marked; Lymphocytes # (A) 0.8 k/uL (1.0-4.8); Lymphocytes % (A) 10 %; MCH 28.2 pg (25.0-35.0); MCHC 30.5 g/dL (31.0-37.0); MCV 92.5 fL (80.0-100.0); Mean Platelet Volume 7.8; Monocytes # (A) 0.4 k/uL (0-1.0); Monocytes % (A) 5 %; Neutrophils # (A) 6.4 k/uL (1.3-7.7); Neutrophils % (A) 77 %; Platelet Count 289 k/uL (150-450); RBC 3.21 m/uL (3.80-5.40); RDW 15.5 % (11.5-15.5); WBC 8.2 k/uL (3.8-10.6)
[2021-05-14] MEDS: carvediloL 12.5 MG TAB PO SCH (09:14)
[2021-05-14] MEDS: ATORVASTATIN 40 MG TAB PO SCH (09:14)
[2021-05-14] MEDS: ENOXAPARIN 40 MG/0.4 ML SYRINGE SQ SCH (09:14)
[2021-05-14] MEDS: amLODIPine 10 MG TAB PO SCH (09:14)
[2021-05-14] MEDS: DOXYCYCLINE 100 MG CAP PO SCH ×2 (09:14→20:42)
[2021-05-14] MEDS: FUROSEMIDE 10 MG/ML 4 ML VIAL IV SCH (09:15)
[2021-05-14 09:29] LABS: Potassium 5.8 mmol/L (3.5-5.1)
[2021-05-14 09:30] LABS: Calcium 8.8 mg/dL (8.4-10.2)
[2021-05-14 11:55] LABS: Glucose,Whole Blood 102 mg/dL (75-99)
[2021-05-14 16:42] LABS: Glucose,Whole Blood 120 mg/dL (75-99)
--- NOTE | 2021-05-14 19:03 | PN ---
PROGRESS NOTE DATE OF SERVICE: 05/14/2021 REASON FOR FOLLOWUP: Bilateral lower extremity cellulitis. INTERVAL HISTORY: The patient is afebrile. The patient is currently breathing comfortably. No chest pain or cough. No abdominal pain and no worsening pain to the lower extremities. PHYSICAL EXAMINATION: Blood pressure 152/78 with a pulse of 74, temperature of 97.6. She is 93% on 3 L nasal cannula. General description is an elderly female lying in bed in no distress. RESPIRATORY SYSTEM: Unlabored breathing. Decreased breath sounds at the bases. No wheeze. HEART: S1, S2. Regular rate and rhythm. ABDOMEN: Soft. No tenderness. Legs are currently wrapped up. No obvious drainage on the dressing. EXAMINATION OF THE SACRAL AREA AND BACK: No wound. LABS: Hemoglobin is 9.1, white count 8.2, BUN of 35, creatinine 1.51. DIAGNOSTIC IMPRESSION AND PLAN: Patient with bilateral lower extremity cellulitis. Patient is on doxycycline; to continue. Local care with Silvadene cream and Arnoldo wrap to keep the swelling down and monitor clinical course closely. MMODL / IJN: [id number] /
--- NOTE | 2021-05-14 19:18 | PN ---
PROGRESS NOTE DATE OF SERVICE: 05/14/2021 CHIEF COMPLAINT: Fall with dehydration. HISTORY OF PRESENT ILLNESS: This lady is lethargic. She is also complaining of shortness of breath. She denies any chest pain, chills, cough, hemoptysis, etc. PHYSICAL EXAMINATION: She is a little bit more lethargic than normal. She is oriented and alert. Chest demonstrates occasional rhonchi and occasional rales. Cardiac exam is normal. The abdomen is soft and nontender. Extremities are unchanged. IMPRESSION: 1. Fall. 2. General debility and failure to thrive. 3. Shortness of breath. 4. Stasis disease and ulcers and cellulitis of the lower extremities. PLAN: 1. Continue with current treatment. 2. If shortness of breath persists, this will be further evaluated. 3. Discharge planning. FAHAD / ARNALDO: [id number] /
[2021-05-14 20:11] LABS: Glucose,Whole Blood 216 mg/dL (75-99)
[2021-05-15 06:32] LABS: Glucose,Whole Blood 111 mg/dL (75-99)
[2021-05-15] MEDS: INSULIN ASPART (NovoLOG) 100 UNIT/ML VIAL SQ SCH ×4 (06:53→20:48)
[2021-05-15] MEDS: LEVOTHYROXINE 100 MCG TAB PO SCH (06:56)
[2021-05-15] MEDS: INSULN ASP PRT/INSULIN ASPART 100 UNIT/ML 10 ML VIAL SQ SCH ×2 (06:56→20:48)
[2021-05-15] MEDS: PANTOPRAZOLE 40 MG TABLET PO SCH (06:56)
[2021-05-15] MEDS: SYMBICORT 80-4.5 MCG INHALER INHALATION SCH ×2 (07:10→19:02)
[2021-05-15] MEDS: IPRATROPIUM-ALBUTEROL 3 ML NEB INHALATION PRN ×3 (07:10→19:02)
[2021-05-15] MEDS: DOXYCYCLINE 100 MG CAP PO SCH (08:58)
[2021-05-15] MEDS: FUROSEMIDE 10 MG/ML 4 ML VIAL IV SCH (08:58)
[2021-05-15] MEDS: ATORVASTATIN 40 MG TAB PO SCH (08:58)
[2021-05-15] MEDS: amLODIPine 10 MG TAB PO SCH (08:58)
[2021-05-15] MEDS: carvediloL 12.5 MG TAB PO SCH (08:59)
[2021-05-15] MEDS: ENOXAPARIN 40 MG/0.4 ML SYRINGE SQ SCH (08:59)
[2021-05-15 12:04] LABS: Glucose,Whole Blood 110 mg/dL (75-99)
--- NOTE | 2021-05-15 14:40 | PN ---
PROGRESS NOTE DATE OF SERVICE: 05/15/2021 REASON FOR FOLLOWUP: Bilateral lower extremity cellulitis and wound. INTERVAL HISTORY: Patient is afebrile. The patient is complaining of more shortness of breath today. No chest pain though. No cough. No abdominal pain. No worsening pain to the lower extremity. PHYSICAL EXAMINATION: Blood pressure 142/64, pulse of 58. Temperature is 97.8. She is 92% on 3 L nasal cannula. General description is an elderly female lying in bed in no distress. Respiratory system: Unlabored breathing, decreased breath sounds in the bases. No wheeze. Heart S1, S2. Regular rate and rhythm. Abdomen soft. No tenderness. Legs have more redness today. No drainage was noticed. LAB: D-dimer is 1.1. DIAGNOSTIC PATIENT: This patient with bilateral lower extremity cellulitis. Patient did have diffuse swelling and redness and evidence of fluid overload with slight worsening cellulitis. local wound care with dry Aquacel dressing and Arnoldo wrap. Continue supportive care. MMODL / IJN: [id number] / [facility]
--- NOTE | 2021-05-15 16:20 | CDI ---
Documentation Clarification Form Date: 05/15/2021 04:11:26 PM From: Aimee Duarte RN, CCDS Admit Date: 05/11/2021 04:20:00 PM Patient Name: Jane Malone Visit Number: [id number] ATTENTION: The Clinical Documentation Specialists (CDI) and [facility] Coding Staff appreciate your assistance in clarifying documentation. Please respond to the clarification below the line at the bottom and electronically sign. The CDI & [facility] Coding staff will review the response and follow-up if needed. Please note: Queries are made part of the Legal Health Record. If you have any questions, please contact the author of this message via ITS. Dr. Faisal Fleming Unspecified CKD is documented in the H&P and 05/13 Progress Note]. Additional clarification regarding the stage of CKD is requested. History/Risk Factors: 10/08/2020 Patients Historical BUN/CR/GFR 53/1.69/28 CHF, COPD, DM2, HLD, HTN Clinical Indicators: Current BUN: 37/33/36/35 CR: 1.43/1.35/1.45/1.51 GFR:35/37/34/33 05/12 H&P & 05/13 Attending Progress Note: "non anion gap metabolic acidosis, secondary to dehydration, and chronic kidney disease. History of hyperlipidemia -Acute on chronic kidney disease baseline creatinine 1.2 - due to acute tubular necrosis s/t hypovolemia and dehydration." Treatment: Consults: No Nephrology Consult ordered. Norvasc 10 mg Po QD Coreg 12.5 mg Po QD Lasix 40 mg IVP QD NO IVF Please clarify the stage of the CKD, if known: [ ] CKD Stage 1 (GFR > 90) [ ] CKD Stage 2 (GFR 60-89) [ ] CKD Stage 3 (GFR 30-59) [ ] CKD Stage 3a (GFR 45-59) [ ] CKD Stage 3b (GFR 30-44) [ ] CKD Stage 4 (GFR 15-29) [ ] CKD Stage 5 (GFR <15) [ ] ESRD [ ] Other, please specify [ ] Unable to determine (Template last revised: August 2020) MTDD
--- NOTE | 2021-05-15 16:27 | CDI ---
Documentation Clarification Form Date: 05/15/2021 04:25:56 PM From: Aimee Duarte RN, CCDS Admit Date: 05/11/2021 04:20:00 PM Patient Name: Jane Malone Visit Number: [id number] ATTENTION: The Clinical Documentation Specialists (CDI) and [facility] Coding Staff appreciate your assistance in clarifying documentation. Please respond to the clarification below the line at the bottom and electronically sign. The CDI & [facility] Coding staff will review the response and follow-up if needed. Please note: Queries are made part of the Legal Health Record. If you have any questions, please contact the author of this message via ITS. Dr. Faisal Fleming Your patient has the documented diagnosis of unspecified CHF in the 05/12 H&P Additional information regarding the type & acuity of CHF is requested. History/Risk Factors: CHF, COPD, DM2, HLD, HTN, Chronic Bilateral Lower extremity edema Clinical Indicators: 05/12 H&P and 05/13 Attending progress note: "Elevated DD - pending VQ scan, d/t elevated cr will not do a CTA -History of Heart failure, most recent EF 60 to 65%, not in acute exacerbation -Hyperkalemia." VS/Pulse OX: 05/11 BNP: 1420 10/02/20 Echocardiogram Results: EF 60-65%, LA moderately dilated, severe pulmonary HTN 05/13 Chest X Ray: "Possible basilar pneumonia. Follow-up PA and lateral chest x-ray when stable." Treatment: Lasix 40 mg IVP QD In your professional opinion, can you please clarify the [acuity and type] of CHF if known? [ ] Acute Diastolic Heart Failure (preserved EF) [ ] Chronic Diastolic Heart Failure (preserved EF) [ ] Acute on Chronic Diastolic Heart Failure (preserved EF) [ ] Acute Systolic & Diastolic Heart Failure [ ] Chronic Systolic & Diastolic Heart Failure [ ] Acute on Chronic Heart Failure Systolic & Diastolic Heart Failure [ ] Other, please specify [ ] Unable to determine (Template Last Revised: August 2020) MTDD
[2021-05-15 16:48] LABS: Glucose,Whole Blood 141 mg/dL (75-99)
--- NOTE | 2021-05-15 18:33 | XR ---
EXAMINATION TYPE: XR chest 2V DATE OF EXAM: 05/15/2021 COMPARISON: 05/13/2021 INDICATION: Short breath TECHNIQUE: Frontal and lateral views of the chest are obtained. FINDINGS: The heart size is normal. The pulmonary vasculature is normal. Posterior lung infiltrates are present. Correlate for atelectasis and pneumonia. There is silhouettin g of the left diaphragm.. IMPRESSION: 1. Posterior lung infiltrates. Correlate for pneumonia. Follow-up recommended.
[2021-05-15 20:16] LABS: Glucose,Whole Blood 203 mg/dL (75-99)
[2021-05-15] MEDS ORDERED: IPRATROPIUM-ALBUTEROL 3 ML NEB INHALATION STA (21:41)
[2021-05-15] MEDS ORDERED: FUROSEMIDE 10 MG/ML 10 ML VIAL IV ONE (21:42)
[2021-05-16] MEDS: IPRATROPIUM-ALBUTEROL 3 ML NEB INHALATION PRN ×3 (05:14→21:28)
[2021-05-16 06:22] LABS: Glucose,Whole Blood 122 mg/dL (75-99)
[2021-05-16] MEDS: INSULIN ASPART (NovoLOG) 100 UNIT/ML VIAL SQ SCH ×4 (06:22→21:12)
[2021-05-16] MEDS: PANTOPRAZOLE 40 MG TABLET PO SCH (06:32)
[2021-05-16] MEDS: LEVOTHYROXINE 100 MCG TAB PO SCH (06:32)
[2021-05-16] MEDS: INSULN ASP PRT/INSULIN ASPART 100 UNIT/ML 10 ML VIAL SQ SCH ×2 (07:09→22:41)
[2021-05-16 08:45] LABS: Basophils % (A) 0 %; Eosinophils # (A) 0.3 k/uL (0-0.7); Eosinophils % (A) 4 %; HCT 30.5 % (34.0-46.0); HGB 9.4 gm/dL (11.4-16.0); Hypochromasia Marked; Lymphocytes # (A) 0.8 k/uL (1.0-4.8); Lymphocytes % (A) 11 %; MCH 28.4 pg (25.0-35.0); MCHC 30.9 g/dL (31.0-37.0); MCV 91.8 fL (80.0-100.0); Mean Platelet Volume 7.4; Monocytes # (A) 0.4 k/uL (0-1.0); Monocytes % (A) 5 %; Neutrophils # (A) 5.2 k/uL (1.3-7.7); Neutrophils % (A) 77 %; Platelet Count 297 k/uL (150-450); RBC 3.32 m/uL (3.80-5.40); RDW 15.3 % (11.5-15.5); WBC 6.8 k/uL (3.8-10.6)
[2021-05-16 09:06] LABS: Albumin 2.8 g/dL (3.5-5.0); Calcium 9.3 mg/dL (8.4-10.2); Potassium 5.2 mmol/L (3.5-5.1); Total Bilirubin 0.4 mg/dL (0.2-1.3)
[2021-05-16] MEDS: SYMBICORT 80-4.5 MCG INHALER INHALATION SCH ×2 (09:08→21:27)
[2021-05-16] MEDS: carvediloL 12.5 MG TAB PO SCH (09:29)
[2021-05-16] MEDS: ENOXAPARIN 30 MG/0.3 ML SYRINGE SQ SCH (09:29)
[2021-05-16] MEDS: ATORVASTATIN 40 MG TAB PO SCH (09:29)
[2021-05-16] MEDS: amLODIPine 10 MG TAB PO SCH (09:29)
[2021-05-16] MEDS: FUROSEMIDE 10 MG/ML 4 ML VIAL IV SCH (09:29)
[2021-05-16 11:36] LABS: Glucose,Whole Blood 150 mg/dL (75-99)
--- NOTE | 2021-05-16 13:13 | MISC ---
MISCELLANOUS REPORT QUERY: CKD is stage 3B. MMODL / IJN: [id number] /
--- NOTE | 2021-05-16 13:20 | MISC ---
MISCELLANOUS REPORT QUERY: Unable to determine on the heart failure. MMODL / IJN: [id number] /
[2021-05-16 17:07] LABS: Glucose,Whole Blood 184 mg/dL (75-99)
[2021-05-16 20:41] LABS: Glucose,Whole Blood 242 mg/dL (75-99)
--- NOTE | 2021-05-16 23:30 | PN ---
PROGRESS NOTE DATE OF SERVICE: 05/16/2021 REASON FOR FOLLOWUP: Bilateral lower extremity cellulitis. INTERVAL HISTORY: Patient is afebrile. She is complaining of shortness of breath. Denies any chest pain. No significant cough or sputum production. No abdominal pain or pain to the lower extremity. PHYSICAL EXAMINATION: Blood pressure 137/62 with a pulse of 64, temperature is 98.7. She is 91% on 4 L nasal cannula. General description is an elderly female lying in bed in no distress. Respiratory system: Unlabored breathing, decreased breath sounds in the base. No wheeze. Heart S1-S2 regular. Abdomen: Soft, no tenderness. Legs are currently wrapped up. No obvious drainage on the dressing. LAB: Hemoglobin 9.4, white count 6.8. BUN of 39, creatinine is 1.52. DIAGNOSTIC IMPRESSION AND PLAN: Patient with bilateral lower extremity cellulitis in this patient who did have evidence of and component of lower extremity cellulitis. The patient is currently covered with cefazolin that will be continued. Mild compression dressing to the leg and continue supportive care. MMODL / IJN: [id number] / [facility]
[2021-05-17] MEDS: INSULIN ASPART (NovoLOG) 100 UNIT/ML VIAL SQ SCH ×4 (06:24→21:42)
[2021-05-17 06:26] LABS: Glucose,Whole Blood 113 mg/dL (75-99)
[2021-05-17] MEDS: LEVOTHYROXINE 100 MCG TAB PO SCH (06:52)
[2021-05-17] MEDS: PANTOPRAZOLE 40 MG TABLET PO SCH (06:52)
[2021-05-17] MEDS: INSULN ASP PRT/INSULIN ASPART 100 UNIT/ML 10 ML VIAL SQ SCH ×2 (07:48→21:43)
[2021-05-17] MEDS: SYMBICORT 80-4.5 MCG INHALER INHALATION SCH ×2 (08:31→21:57)
[2021-05-17] MEDS: IPRATROPIUM-ALBUTEROL 3 ML NEB INHALATION PRN ×4 (08:31→21:57)
[2021-05-17 09:39] LABS: C Reactive Protein 2.2 mg/dL (<1.0); Potassium 5.4 mmol/L (3.5-5.1)
[2021-05-17] MEDS: ATORVASTATIN 40 MG TAB PO SCH (10:05)
[2021-05-17] MEDS: ENOXAPARIN 30 MG/0.3 ML SYRINGE SQ SCH (10:05)
[2021-05-17] MEDS: amLODIPine 10 MG TAB PO SCH (10:05)
[2021-05-17] MEDS: carvediloL 12.5 MG TAB PO SCH (10:05)
[2021-05-17] MEDS: FUROSEMIDE 10 MG/ML 4 ML VIAL IV SCH (10:41)
--- NOTE | 2021-05-17 11:46 | ECHOF ---
Referral Reason:SOB, CHF MEASUREMENTS -------- HEIGHT: 160.0 cm WEIGHT: 80.7 kg BP: 182/91 RVIDd: 2.9 cm (< 3.3) IVSd: 1.0 cm (0.6 - 1.1) LVIDd: 4.6 cm (3.9 - 5.3) LVPWd: 1.2 cm (0.6 - 1.1) IVSs: 1.6 cm LVIDs: 2.9 cm LVPWs: 1.5 cm LA Diam: 3.6 cm (2.7 - 3.8) LAESV Index (A-L): 44.24 ml/m Ao Diam: 2.6 cm (2.0 - 3.7) AV Cusp: 1.6 cm (1.5 - 2.6) MV EXCURSION: 16.594 mm (> 18.000) MV EF SLOPE: 71 mm/s (70 - 150) EPSS: 0.5 cm MV E Raul: 1.82 m/s MV DecT: 222 ms MV A Raul: 1.32 m/s MV E/A Ratio: 1.38 AV maxP.62 mmHg AV meanP.70 mmHg RAP: 5.00 mmHg RVSP: 49.47 mmHg FINDINGS -------- Sinus rhythm. This was a technically adequate study. The left ventricular size is normal. There is borderline concentric left ventricular hypertrophy. Overall left ventricular systolic function is normal with, an EF between 60 - 65 %. The right ventricle is normal in size. LA is severely dilated >40 ml/m2 The right atrium is normal in size. Interatrial and interventricular septum intact. There is mild aortic valve sclerosis. There is mild aortic stenosis present. Peak/mean gradient a cross the Aortic Valve is 18.62mmHg / 8.70mmHg. The mitral valve leaflets are mildly thickened. Mild mitral annular calcification present. Mild m itral regurgitation is present. The peak and mean MV gradients are 16.92mmHg 5.52mmHg as measured by doppler. [id number] mitral stenosis. Mild tricuspid regurgitation present. There is moderate pulmonary hypertension. The right ventric ular systolic pressure, as measured by Doppler, is 49.47mmHg. The pulmonic valve was not well visualized. The aortic root size is normal. Normal inferior vena cava with normal inspiratory collapse consistent with estimated right atrial pre ssure of 5 mmHg. There is no pericardial effusion. CONCLUSIONS -------- 1. The left ventricular size is normal. 2. There is borderline concentric left ventricular hypertrophy. 3. Overall left ventricular systolic function is normal with, an EF between 60 - 65 %. 4. LA is severely dilated >40 ml/m2 5. There is mild aortic valve sclerosis. 6. There is mild aortic stenosis present. 7. Peak/mean gradient across the Aortic Valve is 18.62mmHg / 8.70mmHg. 8. The mitral valve leaflets are mildly thickened. 9. Mild mitral annular calcification present. 10. Mild mitral regurgitation is present. 11. The peak and mean MV gradients are 16.92mmHg 5.52mmHg as measured by doppler. 12. Niju-qy-rdudgspp mitral stenosis. 13. Mild tricuspid regurgitation present. 14. There is moderate pulmonary hypertension. 15. The right ventricular systolic pressure, as measured by Doppler, is 49.47mmHg. 16. There is no pericardial effusion. VOCATIONAL PSYCHOLOGIST: Zee Hernandez RDCS
[2021-05-17 11:49] LABS: Glucose,Whole Blood 111 mg/dL (75-99)
[2021-05-17] MEDS: SACUBITRIL/VALSARTAN 24 MG-26 MG TABLET PO SCH ×2 (13:34→21:42)
[2021-05-17] MEDS: SPIRONOLACTONE 25 MG TAB PO SCH (13:34)
--- NOTE | 2021-05-17 16:47 | PN ---
PROGRESS NOTE DATE OF SERVICE: 05/17/2021 REASON FOR FOLLOWUP: Bilateral lower extremity cellulitis and wound. INTERVAL HISTORY: The patient is afebrile. The patient continues to complain of shortness of breath and some chest discomfort. No nausea, vomiting. No abdominal pain or pain to the lower extremities. PHYSICAL EXAMINATION: Blood pressure 126/72 with a pulse of 55, temperature of 98.2. She is 92% on 4 L nasal cannula. General description is an elderly female lying in bed in no distress. RESPIRATORY SYSTEM: Unlabored breathing. Decreased breath sounds at the bases. No wheeze. HEART: S1, S2. Regular rate and rhythm. ABDOMEN: Soft. No tenderness. Legs are currently wrapped up. No obvious drainage on the dressing. LABS: Creatinine is 1.49. DIAGNOSTIC IMPRESSION AND PLAN: Patient with bilateral lower extremity cellulitis in this patient who did have evidence of fluid overload, possible CHF with elevated NT proBNP. Would benefit from cardiology evaluation. Continue cefazolin. Local care with Silvadene and Arnoldo wrap and monitor clinical course closely. MMODL / IJN: [id number] /
[2021-05-17 16:51] LABS: Glucose,Whole Blood 207 mg/dL (75-99)
--- NOTE | 2021-05-17 17:18 | PN ---
PROGRESS NOTE DATE OF SERVICE: 05/15/2021. CHIEF COMPLAINT: General debility and weakness with shortness of breath. HISTORY OF PRESENT ILLNESS: This lady is complaining of slight anterior chest discomfort and shortness of breath even when she is lying at rest. She denies any chills, cough, hemoptysis, etc. PHYSICAL EXAMINATION: She does have bilateral basilar rales. Cardiac exam is unremarkable. The abdomen is soft and nontender. Extremities are dressed. IMPRESSION: 1. Failure to thrive and general debility. 2. Syncope and collapse. 3. Venostasis disease with secondary ulcerations and cellulitis. 4. Shortness of breath. PLAN: BNP and D-dimer. MMODL / IJN: [id number] /
--- NOTE | 2021-05-17 17:33 | PN ---
PROGRESS NOTE DATE OF SERVICE: 05/16/2021 CHIEF COMPLAINT: Failure to thrive and stasis disease and cellulitis and ulcers of the lower extremities. HISTORY OF PRESENT ILLNESS: This lady continues with a complaint of shortness of breath. She has had no fever or chills. She denies chest pain. PHYSICAL EXAMINATION: She is somewhat dyspneic. Cardiac exam is unremarkable except for a faint systolic murmur. She has some expiratory wheezing and scattered rales bilaterally. The abdomen is soft and nontender. IMPRESSION: 1. Chest pressure and shortness of breath. 2. Probable congestive heart failure. 3. Diabetes mellitus. 4. Venostasis disease of the lower extremities. PLAN: 1. Echocardiogram. 2. BNP. 3. Increase diuresis. MMODL / IJN: [id number] /
--- NOTE | 2021-05-17 17:39 | PN ---
PROGRESS NOTE CHIEF COMPLAINT: 1. Syncope. 2. Failure to thrive. 3. Diabetes. 4. Venostasis disease of the lower extremities with cellulitis and ulceration. 5. Shortness of breath. HISTORY OF PRESENT ILLNESS: This lady's studies suggest that she probably does have congestive heart failure. Her management will be changed by switching her over to oral Lasix 40 mg twice a day, adding Aldactone 25 mg once a day, and starting Entresto 24/ twice a day. MMODL / IJN: [id number] /
[2021-05-17] MEDS: FUROSEMIDE 80 MG TAB PO SCH (18:16)
[2021-05-17 21:11] LABS: Glucose,Whole Blood 202 mg/dL (75-99)
[2021-05-18] MEDS: LEVOTHYROXINE 100 MCG TAB PO SCH (06:22)
[2021-05-18] MEDS: PANTOPRAZOLE 40 MG TABLET PO SCH (06:22)
[2021-05-18 07:25] LABS: Glucose,Whole Blood 120 mg/dL (75-99)
[2021-05-18] MEDS: INSULIN ASPART (NovoLOG) 100 UNIT/ML VIAL SQ SCH ×4 (09:00→20:03)
[2021-05-18] MEDS: SYMBICORT 80-4.5 MCG INHALER INHALATION SCH ×2 (09:06→19:42)
[2021-05-18] MEDS: IPRATROPIUM-ALBUTEROL 3 ML NEB INHALATION PRN ×3 (09:06→19:42)
[2021-05-18] MEDS: SACUBITRIL/VALSARTAN 24 MG-26 MG TABLET PO SCH ×2 (09:09→20:03)
[2021-05-18] MEDS: SPIRONOLACTONE 25 MG TAB PO SCH (09:09)
[2021-05-18] MEDS: ENOXAPARIN 30 MG/0.3 ML SYRINGE SQ SCH (09:09)
[2021-05-18] MEDS: INSULN ASP PRT/INSULIN ASPART 100 UNIT/ML 10 ML VIAL SQ SCH ×2 (09:09→20:03)
[2021-05-18] MEDS: ATORVASTATIN 40 MG TAB PO SCH (09:10)
[2021-05-18] MEDS: carvediloL 12.5 MG TAB PO SCH ×2 (09:10→18:26)
[2021-05-18] MEDS: amLODIPine 10 MG TAB PO SCH (09:10)
[2021-05-18] MEDS: FUROSEMIDE 80 MG TAB PO SCH ×2 (09:10→18:26)
[2021-05-18 12:24] LABS: Glucose,Whole Blood 163 mg/dL (75-99)
[2021-05-18 17:01] LABS: Glucose,Whole Blood 167 mg/dL (75-99)
--- NOTE | 2021-05-18 18:02 | PN ---
PROGRESS NOTE DATE OF SERVICE: 05/18/2021 REASON FOR FOLLOWUP: Bilateral lower extremity wound and cellulitis. INTERVAL HISTORY: The patient is afebrile. Still complaining of shortness of breath. The patient has complained of some chest pressure. No nausea, no vomiting. No abdominal pain or pain to the lower extremity. PHYSICAL EXAMINATION: Blood pressure 143/60 with a pulse of 65, temperature 97.9. She is 93% on 6 L nasal cannula. General description is an elderly female up in the bed in no distress. Respiratory system: Unlabored breathing, decreased intensity of breath sounds, no wheeze. Heart S1, S2. Regular rate and rhythm. Abdomen soft, no tenderness. Legs are currently wrapped up, no obvious drainage on the dressing. DIAGNOSTIC IMPRESSION AND PLAN: Patient with bilateral lower extremity cellulitis in this patient who did have evidence of fluid overload, possible CHF. Will benefit from cardiology evaluation. Patient is covered with cefazolin, local wound care to the leg as ordered. Continue supportive care. MMODL / IJN: [id number] /
--- NOTE | 2021-05-18 18:38 | PN ---
PROGRESS NOTE DATE OF SERVICE: 05/18/2021 CHIEF COMPLAINT: Syncope, fall, and dehydration and uncontrolled diabetes. HISTORY OF PRESENT ILLNESS: This lady is still having trouble breathing. She still states she is short of breath. She has had no fever, chills, hemoptysis. PHYSICAL EXAMINATION: Her vital signs are normal. She is pale. Chest demonstrates decreased breath sounds with scattered rales throughout. Cardiac exam is unremarkable and the abdomen is protuberant, soft. IMPRESSION: 1. Acute congestive heart failure. 2. Chronic congestive heart failure with preserved ejection fraction. 3. Diabetes. 4. Lower extremities cellulitis and edema with ulcers. PLAN: Continue efforts to treat congestive heart failure. MMODL / IJN: [id number] /
[2021-05-18 20:07] LABS: Glucose,Whole Blood 252 mg/dL (75-99)
[2021-05-18] MEDS: ACETAMINOPHEN TAB 325 MG TAB PO PRN (23:58)
--- NOTE | 2021-05-19 00:39 | XR ---
EXAMINATION TYPE: XR chest 1V portable DATE OF EXAM: 05/18/2021 COMPARISON: May 15, 2021 HISTORY: Short of breath TECHNIQUE: Single view FINDINGS: There is pulmonary interstitial and airspace edema. There is blunting of the costophrenic a ngles. There are chest leads. Thoracic aorta is atheromatous. IMPRESSION: There is some congestive heart failure with pleural effusions. Chest overall not signific antly different than recent exam.
[2021-05-19] MEDS: PANTOPRAZOLE 40 MG TABLET PO SCH (06:09)
[2021-05-19] MEDS: carvediloL 12.5 MG TAB PO SCH ×2 (06:10→17:21)
[2021-05-19] MEDS: LEVOTHYROXINE 100 MCG TAB PO SCH (06:10)
[2021-05-19 07:44] LABS: Glucose,Whole Blood 112 mg/dL (75-99)
[2021-05-19] MEDS: SYMBICORT 80-4.5 MCG INHALER INHALATION SCH ×2 (07:52→21:03)
[2021-05-19] MEDS: IPRATROPIUM-ALBUTEROL 3 ML NEB INHALATION PRN ×2 (07:52→10:55)
[2021-05-19] MEDS: ENOXAPARIN 30 MG/0.3 ML SYRINGE SQ SCH (08:58)
[2021-05-19] MEDS: INSULIN ASPART (NovoLOG) 100 UNIT/ML VIAL SQ SCH ×4 (08:58→22:05)
[2021-05-19] MEDS: SPIRONOLACTONE 25 MG TAB PO SCH (08:59)
[2021-05-19] MEDS: amLODIPine 10 MG TAB PO SCH (08:59)
[2021-05-19] MEDS: ATORVASTATIN 40 MG TAB PO SCH (08:59)
[2021-05-19] MEDS: SACUBITRIL/VALSARTAN 24 MG-26 MG TABLET PO SCH ×2 (08:59→22:57)
[2021-05-19] MEDS: FUROSEMIDE 80 MG TAB PO SCH ×2 (08:59→18:10)
[2021-05-19] MEDS: INSULN ASP PRT/INSULIN ASPART 100 UNIT/ML 10 ML VIAL SQ SCH ×3 (08:59→22:57)
--- NOTE | 2021-05-19 10:29 | XR ---
EXAMINATION TYPE: XR chest 2V DATE OF EXAM: 05/19/2021 COMPARISON: 05/18/2021 HISTORY: CHF TECHNIQUE: Frontal and lateral views of the chest are obtained. FINDINGS: There is mild to moderate pulmonary vascular congestion and small to moderate bilateral pl eural effusions. There has been no significant interval change since prior study. The osseous structures and soft tissues unremarkable. There is no pneumothorax. IMPRESSION: Acute cardiopulmonary disease consistent with moderate CHF with no interval change.
[2021-05-19 10:44] LABS: Basophils % (A) 1 %; Eosinophils # (A) 0.6 k/uL (0-0.7); Eosinophils % (A) 9 %; HGB 8.6 gm/dL (11.4-16.0); Hypochromasia Marked; Lymphocytes # (A) 1.1 k/uL (1.0-4.8); Lymphocytes % (A) 18 %; MCH 27.9 pg (25.0-35.0); MCHC 29.8 g/dL (31.0-37.0); MCV 93.7 fL (80.0-100.0); Mean Platelet Volume 7.6; Monocytes # (A) 0.5 k/uL (0-1.0); Monocytes % (A) 7 %; Neutrophils # (A) 3.9 k/uL (1.3-7.7); Neutrophils % (A) 62 %; Platelet Count 261 k/uL (150-450); RBC 3.09 m/uL (3.80-5.40); RDW 15.1 % (11.5-15.5); WBC 6.2 k/uL (3.8-10.6)
[2021-05-19 11:05] LABS: ALT <6 U/L (4-34); AST 21 U/L (14-36); African American GFR (CKD) 36 (>60 ml/min/1.73 sqM); Albumin 2.6 g/dL (3.5-5.0); Alkaline Phosphatase 91 U/L (38-126); Anion Gap 6 mmol/L; Blood Urea Nitrogen 48 mg/dL (7-17); Calcium 8.8 mg/dL (8.4-10.2); Carbon Dioxide 21 mmol/L (22-30); Chloride 113 mmol/L (98-107); Glucose 162 mg/dL (74-99); Non-African American GFR(CKD) 31 (>60 ml/min/1.73 sqM); Potassium 5.5 mmol/L (3.5-5.1); Sodium 140 mmol/L (137-145); Total Bilirubin 0.2 mg/dL (0.2-1.3); Total Protein 5.6 g/dL (6.3-8.2)
--- NOTE | 2021-05-19 11:42 | PN ---
PROGRESS NOTE DATE OF SERVICE: 05/19/2021 CHIEF COMPLAINT: Shortness of breath. HISTORY OF PRESENT ILLNESS: This lady thinks her breathing might be a little bit better, but not much. Chest x-ray demonstrates congestive heart failure with pleural effusions. PHYSICAL EXAMINATION: She has scattered rales bilaterally. Cardiac exam demonstrates her grade 2/6 murmur. Abdomen is soft. IMPRESSION: 1. Acute congestive heart failure. 2. Chronic congestive heart failure with preserved ejection fraction. 3. Venous stasis disease with cellulitis and ulcerations. 4. Anemia. PLAN: Repeat labs and watch her hemoglobin. Attempts at management of her heart failure continue, but prognosis is certainly guarded. MMODL / IJN: [id number] /
[2021-05-19 12:42] LABS: Glucose,Whole Blood 142 mg/dL (75-99)
[2021-05-19 16:39] LABS: Glucose,Whole Blood 211 mg/dL (75-99)
--- NOTE | 2021-05-19 16:48 | PN ---
PROGRESS NOTE DATE OF SERVICE: 05/19/2021 REASON FOR FOLLOWUP: Lower extremity cellulitis and wound. INTERVAL HISTORY: Patient is afebrile, complaining of shortness of breath. No chest pain though. Denies any significant cough or sputum production. No abdominal pain. No pain to the lower extremity. No diarrhea. PHYSICAL EXAMINATION: Blood pressure is 117/54, pulse of 60, temp 97. She is 93% on 6 L nasal cannula. General description is an elderly female lying in bed in no distress. Respiratory system: Unlabored breathing, decreased breath sounds at the base. No wheeze. Heart S1, S2. Regular rate and rhythm. Abdomen soft. No tenderness. Legs are currently wrapped up. No obvious drainage on the dressing. LABS: Hemoglobin 8.1, white count 6.2, BUN of 48, creatinine 1.58. DIAGNOSTIC IMPRESSION AND PLAN: 1. Patient with bilateral lower extremity cellulitis in this patient who did have diffuse swelling and redness, more likely from fluid overload. Possible mild cellulitis likely from a gram-positive skin belinda. Continue with cefazolin. 2. Patient with congestive heart failure, being monitored by admitting team. Continue supportive care. MMODL / IJN: [id number] /
[2021-05-19 20:09] LABS: Glucose,Whole Blood 238 mg/dL (75-99)
[2021-05-20] MEDS: LEVOTHYROXINE 100 MCG TAB PO SCH (06:22)
[2021-05-20 07:20] LABS: Glucose,Whole Blood 111 mg/dL (75-99)
[2021-05-20] MEDS: INSULIN ASPART (NovoLOG) 100 UNIT/ML VIAL SQ SCH ×5 (07:22→22:48)
[2021-05-20] MEDS: SYMBICORT 80-4.5 MCG INHALER INHALATION SCH ×2 (07:45→19:40)
[2021-05-20] MEDS: INSULN ASP PRT/INSULIN ASPART 100 UNIT/ML 10 ML VIAL SQ SCH ×2 (08:02→22:44)
[2021-05-20] MEDS: SACUBITRIL/VALSARTAN 24 MG-26 MG TABLET PO SCH ×2 (08:02→22:51)
[2021-05-20] MEDS: PANTOPRAZOLE 40 MG TABLET PO SCH (08:02)
[2021-05-20] MEDS: carvediloL 12.5 MG TAB PO SCH ×2 (08:03→16:44)
[2021-05-20] MEDS: ENOXAPARIN 30 MG/0.3 ML SYRINGE SQ SCH (08:03)
[2021-05-20] MEDS: amLODIPine 10 MG TAB PO SCH (08:03)
[2021-05-20] MEDS: ATORVASTATIN 40 MG TAB PO SCH (08:03)
[2021-05-20] MEDS: SPIRONOLACTONE 25 MG TAB PO SCH (08:03)
[2021-05-20] MEDS: FUROSEMIDE 80 MG TAB PO SCH ×2 (08:35→16:44)
[2021-05-20 11:45] LABS: Glucose,Whole Blood 158 mg/dL (75-99)
[2021-05-20 16:32] LABS: Glucose,Whole Blood 238 mg/dL (75-99)
[2021-05-20 20:51] LABS: Glucose,Whole Blood 272 mg/dL (75-99)
--- NOTE | 2021-05-20 22:41 | PN ---
PROGRESS NOTE DATE OF SERVICE: 05/20/2021 REASON FOR FOLLOWUP: Lower extremity wounds and cellulitis. INTERVAL HISTORY: The patient is afebrile. The patient is complaining of shortness of breath. The patient denies having any chest pain. She did have some cough. No abdominal pain or pain to the lower extremities. PHYSICAL EXAMINATION: Blood pressure 109/62 with a pulse of 57, temperature 97.6. She is 98% on 6 L nasal cannula. General description is an elderly female up in the bed in no distress. Respiratory system: Unlabored breathing, decreased intensity of breath sounds. No wheeze. Heart S1, S2. Regular rate and rhythm. Abdomen soft, no tenderness. LABS: No new labs have been obtained today. DIAGNOSTIC IMPRESSION AND PLAN: Patient with bilateral lower extremity cellulitis, some superficial ulceration concerning for cellulitis; on cefazolin. To continue along with Arnoldo wrap to the legs to keep the swelling down. Continue with supportive care. MMODL / IJN: [id number] / NGHIA
[2021-05-21 07:14] LABS: Glucose,Whole Blood 116 mg/dL (75-99)
[2021-05-21] MEDS: LEVOTHYROXINE 100 MCG TAB PO SCH (07:29)
[2021-05-21] MEDS: ENOXAPARIN 30 MG/0.3 ML SYRINGE SQ SCH (07:51)
[2021-05-21] MEDS: amLODIPine 10 MG TAB PO SCH (07:51)
[2021-05-21] MEDS: ATORVASTATIN 40 MG TAB PO SCH (07:51)
[2021-05-21] MEDS: INSULN ASP PRT/INSULIN ASPART 100 UNIT/ML 10 ML VIAL SQ SCH ×2 (07:51→21:56)
[2021-05-21] MEDS: SPIRONOLACTONE 25 MG TAB PO SCH (07:51)
[2021-05-21] MEDS: PANTOPRAZOLE 40 MG TABLET PO SCH (07:51)
[2021-05-21] MEDS: carvediloL 12.5 MG TAB PO SCH ×2 (07:51→16:32)
[2021-05-21] MEDS: FUROSEMIDE 80 MG TAB PO SCH ×2 (07:52→16:32)
[2021-05-21] MEDS: SACUBITRIL/VALSARTAN 24 MG-26 MG TABLET PO SCH ×2 (07:52→21:57)
[2021-05-21] MEDS: SYMBICORT 80-4.5 MCG INHALER INHALATION SCH ×2 (09:26→19:48)
[2021-05-21 11:19] LABS: Glucose,Whole Blood 175 mg/dL (75-99)
[2021-05-21 12:03] LABS: Basophils # (A) 0.1 k/uL (0-0.2); Basophils % (A) 1 %; Eosinophils # (A) 0.4 k/uL (0-0.7); Eosinophils % (A) 6 %; HCT 29.2 % (34.0-46.0); HGB 9.3 gm/dL (11.4-16.0); Hypochromasia Marked; Lymphocytes # (A) 0.9 k/uL (1.0-4.8); Lymphocytes % (A) 12 %; MCH 29.3 pg (25.0-35.0); MCHC 31.8 g/dL (31.0-37.0); Mean Platelet Volume 7.8; Monocytes # (A) 0.5 k/uL (0-1.0); Monocytes % (A) 7 %; Neutrophils # (A) 5.3 k/uL (1.3-7.7); Neutrophils % (A) 73 %; Platelet Count 241 k/uL (150-450); RBC 3.17 m/uL (3.80-5.40); RDW 15.2 % (11.5-15.5); WBC 7.2 k/uL (3.8-10.6)
[2021-05-21 12:20] LABS: ALT <6 U/L (4-34); AST 22 U/L (14-36); African American GFR (CKD) 35 (>60 ml/min/1.73 sqM); Albumin 2.6 g/dL (3.5-5.0); Albumin/Globulin Ratio 0.8; Alkaline Phosphatase 91 U/L (38-126); Anion Gap 5 mmol/L; Blood Urea Nitrogen 59 mg/dL (7-17); Calcium 9.1 mg/dL (8.4-10.2); Carbon Dioxide 23 mmol/L (22-30); Chloride 112 mmol/L (98-107); Globulin 3.1 g/dL; Glucose 160 mg/dL (74-99); Non-African American GFR(CKD) 30 (>60 ml/min/1.73 sqM); Potassium 5.7 mmol/L (3.5-5.1); Sodium 140 mmol/L (137-145); Total Bilirubin 0.3 mg/dL (0.2-1.3); Total Protein 5.7 g/dL (6.3-8.2)
[2021-05-21] MEDS: INSULIN ASPART (NovoLOG) 100 UNIT/ML VIAL SQ SCH ×3 (13:08→21:47)
[2021-05-21 16:32] LABS: Glucose,Whole Blood 265 mg/dL (75-99)
--- NOTE | 2021-05-21 18:13 | PN ---
PROGRESS NOTE DATE OF SERVICE: 05/20/2021 CHIEF COMPLAINT: Intractable congestive heart failure. HISTORY OF PRESENT ILLNESS: This lady continues to have difficulty breathing. Her chest x-ray is about the same, as is her breathing. PHYSICAL EXAMINATION: She remains very pale and dyspneic. She is extremely weak. Chest demonstrates decreased breath sounds with scattered rales throughout. Cardiac exam reveals her murmur which is grade 3. Abdomen is soft and non-tender. Extremities are dressed. IMPRESSION: 1. Acute on chronic congestive heart failure. 2. Diabetes mellitus. 3. Stasis disease with necrotic ulcers and cellulitis. PLAN: Continue efforts to improve on her congestive heart failure, which is not going well. She will have to go [facility] a [facility]. Laboratory studies will be repeated. MMODL / IJN: [id number] /
--- NOTE | 2021-05-21 18:51 | PN ---
PROGRESS NOTE DATE OF SERVICE: 05/21/2021 CHIEF COMPLAINT: Acute on chronic congestive heart failure. HISTORY OF PRESENT ILLNESS: This lady is not much better. She feels she is breathing a little bit better, but she can hardly move around in bed without becoming very short of breath. She is not having any chest pain. PHYSICAL EXAMINATION: Breath sounds are diminished with rales at the bases. Cardiac exam is unchanged. Abdomen is soft. Extremities are unchanged. She remains very pale. IMPRESSION: 1. Acute congestive heart failure. 2. Chronic congestive heart failure. 3. Diabetes mellitus. 4. Venostasis disease and ulcerations in the lower extremities. 5. Anemia. 6. Renal failure. PLAN: Continue efforts to control her heart failure, but her renal function is starting to deteriorate, which may herald cardiorenal syndrome. MMODL / IJN: [id number] /
[2021-05-21 20:20] LABS: Glucose,Whole Blood 254 mg/dL (75-99)
--- NOTE | 2021-05-21 20:20 | XR ---
EXAMINATION TYPE: XR chest 2V DATE OF EXAM: 05/21/2021 COMPARISON: NONE HISTORY: 05/19/2021 TECHNIQUE: 2 views FINDINGS: There are bilateral lower lobe pulmonary airspace infiltrates. There is mild pulmonary león estion. Thoracic aorta is atheromatous. IMPRESSION: Bilateral lower lobe pneumonia which is not significantly different than recent exam. Mil d heart failure is possible.
[2021-05-21] MEDS: ACETAMINOPHEN TAB 325 MG TAB PO PRN (21:58)
--- NOTE | 2021-05-21 22:37 | PN ---
PROGRESS NOTE DATE OF SERVICE: 05/21/2021 REASON FOR FOLLOW UP: Bilateral lower extremity cellulitis. INTERVAL HISTORY: The patient is afebrile. The patient is complaining of shortness of breath. Denies any chest pain. Did have a cough. Not bringing up any sputum. No abdominal pain or pain to the lower extremity. PHYSICAL EXAMINATION: Blood pressure 100/57, pulse of 84, temperature 97.9. She is 94% on 6 L nasal cannula. General description is an elderly female up in the bed in no distress. Respiratory system: Unlabored breathing, decreased intensity of breath sounds. No wheeze. Heart S1, S2. Regular rate and rhythm. Abdomen soft, no tenderness. Legs are currently wrapped up. No obvious drainage on the dressing. LABS: Hemoglobin 9.1, white count 7.2, creatinine is 1.61. DIAGNOSTIC IMPRESSION AND PLAN: Patient with bilateral lower extremity cellulitis with some superficial ulceration from fluid overload. The patient is on cefazolin and may transition to a course of oral Keflex. Continue with local wound care to the leg as ordered. Continue supportive care. MMODL / IJN: [id number] / NGHIA
[2021-05-22] MEDS: LEVOTHYROXINE 100 MCG TAB PO SCH (06:54)
[2021-05-22 07:06] LABS: Glucose,Whole Blood 120 mg/dL (75-99)
[2021-05-22] MEDS: INSULIN ASPART (NovoLOG) 100 UNIT/ML VIAL SQ SCH ×4 (07:29→20:56)
[2021-05-22] MEDS: carvediloL 12.5 MG TAB PO SCH ×2 (08:06→16:58)
[2021-05-22] MEDS: ENOXAPARIN 30 MG/0.3 ML SYRINGE SQ SCH (08:06)
[2021-05-22] MEDS: PANTOPRAZOLE 40 MG TABLET PO SCH (08:06)
[2021-05-22] MEDS: amLODIPine 10 MG TAB PO SCH (08:06)
[2021-05-22] MEDS: ATORVASTATIN 40 MG TAB PO SCH (08:07)
[2021-05-22] MEDS: SACUBITRIL/VALSARTAN 24 MG-26 MG TABLET PO SCH ×2 (08:07→20:55)
[2021-05-22] MEDS: FUROSEMIDE 80 MG TAB PO SCH ×2 (08:07→16:58)
[2021-05-22] MEDS: SPIRONOLACTONE 25 MG TAB PO SCH (08:07)
[2021-05-22] MEDS: INSULN ASP PRT/INSULIN ASPART 100 UNIT/ML 10 ML VIAL SQ SCH ×2 (08:23→20:56)
[2021-05-22] MEDS: SYMBICORT 80-4.5 MCG INHALER INHALATION SCH ×2 (09:35→21:17)
[2021-05-22 11:52] LABS: Glucose,Whole Blood 88 mg/dL (75-99)
[2021-05-22 14:14] VITALS: BMI 39.0
[2021-05-22 16:55] LABS: Glucose,Whole Blood 173 mg/dL (75-99)
--- NOTE | 2021-05-22 19:38 | PN ---
PROGRESS NOTE CHIEF COMPLAINT: Congestive heart failure. HISTORY OF PRESENT ILLNESS: This lady is not doing well. She states that she is still a little bit short of breath. She is more lethargic. PHYSICAL EXAMINATION: She remains pale. Chest demonstrates scattered rales throughout. Cardiac exam is the same with her usual murmur. The abdomen is soft and nontender. IMPRESSION: 1. Congestive heart failure. 2. Diabetes mellitus. 3. Venostasis disease and cellulitis of the lower extremities. PLAN: Continue efforts to manage her heart failure, but she is deteriorating. MMODL / IJN: [id number] /
[2021-05-22 20:51] LABS: Glucose,Whole Blood 182 mg/dL (75-99)
--- NOTE | 2021-05-22 23:42 | PN ---
PROGRESS NOTE DATE OF SERVICE: 05/22/2021 REASON FOR FOLLOWUP: Lower extremity cellulitis. INTERVAL HISTORY: The patient is afebrile, has been complaining of shortness of breath. The patient denies having any chest pain or cough or abdominal pain or pain in the lower extremities. PHYSICAL EXAMINATION: Blood pressure 106/55, pulse of 53, temperature 97.5. She is 95% on 6 L nasal cannula. General description is an elderly female up in the bed in no distress. Respiratory system: Unlabored breathing, decreased breath sounds at the base. No wheeze. Heart S1, S2. Regular rate and rhythm. Abdomen soft, no tenderness. Legs: Dressing was just changed by the nursing staff, who mentioned redness has decreased, did have some necrotic changes to the left heel area. DIAGNOSTIC IMPRESSION AND PLAN: 1. Patient with bilateral lower extremity cellulitis in this patient who is currently on cefazolin; may consider a short course of oral Keflex on discharge. 2. Patient with left heel protectors to keep the area off pressure. Discussed with the RN. FAHAD / ARNALDO: [id number] / NGHIA
[2021-05-23] MEDS: ACETAMINOPHEN TAB 325 MG TAB PO PRN ×2 (03:17→20:44)
[2021-05-23] MEDS: LEVOTHYROXINE 100 MCG TAB PO SCH (05:39)
[2021-05-23 07:13] LABS: Glucose,Whole Blood 131 mg/dL (75-99)
[2021-05-23] MEDS: SYMBICORT 80-4.5 MCG INHALER INHALATION SCH ×2 (07:22→19:32)
[2021-05-23] MEDS: INSULN ASP PRT/INSULIN ASPART 100 UNIT/ML 10 ML VIAL SQ SCH ×2 (07:28→20:42)
[2021-05-23] MEDS: INSULIN ASPART (NovoLOG) 100 UNIT/ML VIAL SQ SCH ×4 (07:28→20:43)
[2021-05-23] MEDS: SPIRONOLACTONE 25 MG TAB PO SCH (07:28)
[2021-05-23] MEDS: amLODIPine 10 MG TAB PO SCH (07:28)
[2021-05-23] MEDS: ENOXAPARIN 30 MG/0.3 ML SYRINGE SQ SCH (07:28)
[2021-05-23] MEDS: ATORVASTATIN 40 MG TAB PO SCH (07:29)
[2021-05-23] MEDS: PANTOPRAZOLE 40 MG TABLET PO SCH (07:29)
[2021-05-23] MEDS: FUROSEMIDE 80 MG TAB PO SCH ×2 (07:29→17:19)
[2021-05-23] MEDS: SACUBITRIL/VALSARTAN 24 MG-26 MG TABLET PO SCH ×2 (07:29→20:42)
[2021-05-23] MEDS: carvediloL 12.5 MG TAB PO SCH ×2 (07:29→17:19)
[2021-05-23 11:55] LABS: Glucose,Whole Blood 173 mg/dL (75-99)
--- NOTE | 2021-05-23 15:40 | PN ---
PROGRESS NOTE DATE OF SERVICE: 05/23/2021. REASON FOR FOLLOWUP: Lower extremity cellulitis. INTERVAL HISTORY: Patient is afebrile. She still complains of shortness of breath. Requiring about 4-6 L nasal cannula. The patient denies any chest pain or cough. No abdominal pain or pain to the lower extremity. PHYSICAL EXAMINATION: Blood pressure 121/54, pulse 51, temperature 97.6. She is 97% on 6 L nasal cannula. General description is an elderly female lying in bed in no distress. Respiratory system: Unlabored breathing, clear to auscultation anteriorly. Heart S1, S2. Regular rate and rhythm. Abdomen soft, no tenderness. Legs are currently wrapped up. LABS: No new labs have been obtained today. DIAGNOSTIC IMPRESSION AND PLAN: 1. Patient with bilateral lower extremity cellulitis , patient underlying cellulitis has been adequately treated. We will discontinue cefazolin. Monitor the patient closely off antibiotic therapy. 2. Left heel pressure ulcer. Keep the area dry and off the pressure. 3. Continue supportive care. MMODL / IJN: [id number] / MTDPaco
[2021-05-23 16:45] LABS: Glucose,Whole Blood 170 mg/dL (75-99)
[2021-05-23 20:34] LABS: Glucose,Whole Blood 182 mg/dL (75-99)
[2021-05-24] MEDS: LEVOTHYROXINE 100 MCG TAB PO SCH (05:27)
[2021-05-24 07:21] LABS: Glucose,Whole Blood 111 mg/dL (75-99)
[2021-05-24] MEDS: INSULIN ASPART (NovoLOG) 100 UNIT/ML VIAL SQ SCH ×2 (07:26→12:16)
[2021-05-24 08:10] VITALS: RESP 16
[2021-05-24] MEDS: ENOXAPARIN 30 MG/0.3 ML SYRINGE SQ SCH (08:19)
[2021-05-24] MEDS: SPIRONOLACTONE 25 MG TAB PO SCH (08:19)
[2021-05-24] MEDS: amLODIPine 10 MG TAB PO SCH (08:19)
[2021-05-24] MEDS: PANTOPRAZOLE 40 MG TABLET PO SCH (08:19)
[2021-05-24] MEDS: carvediloL 12.5 MG TAB PO SCH (08:19)
[2021-05-24] MEDS: SACUBITRIL/VALSARTAN 24 MG-26 MG TABLET PO SCH (08:19)
[2021-05-24] MEDS: ATORVASTATIN 40 MG TAB PO SCH (08:19)
[2021-05-24] MEDS: FUROSEMIDE 80 MG TAB PO SCH (08:19)
[2021-05-24] MEDS: SYMBICORT 80-4.5 MCG INHALER INHALATION SCH (08:23)
[2021-05-24] MEDS: INSULN ASP PRT/INSULIN ASPART 100 UNIT/ML 10 ML VIAL SQ SCH (09:04)
[2021-05-24 11:34] LABS: Glucose,Whole Blood 204 mg/dL (75-99)
--- NOTE | 2021-05-24 12:46 | DS ---
DISCHARGE SUMMARY CHIEF COMPLAINT: Dehydration, fall and venostasis disease of the lower extremities with cellulitis and ulcers. HISTORY OF PRESENT ILLNESS AND PHYSICAL EXAMINATION: Details of this lady's history and physical can be found in the initial workup. LABORATORY STUDIES: While she was in the hospital, she had laboratory studies, details of which can be found in the laboratory section of her chart. COURSE IN THE HOSPITAL: After admission she was placed on bedrest and started on intravenous fluids and IV antibiotics for her legs. She was severely debilitated. She remained mostly at bedrest in the hospital and did not respond to physical therapy. She also then became progressively more short of breath and was found to be in congestive heart failure. She was started on management for this but continued to be essentially bedridden and extremely dyspneic with any kind of movement. It was determined that she would have to go to a rehab facility, to which she agreed, and arrangements were made for her to go to [facility] on May 24. FINAL DIAGNOSES: 1. Frequent falling. 2. General debility and weakness. 3. Dehydration. 4. Uncontrolled diabetes mellitus. 5. Venostasis disease with stasis dermatitis and ulcers with secondary cellulitis. 6. Congestive heart failure. OPERATIONS: None. CONSULTATION: Infectious Disease. She is improved. MMODL / IJN: [id number] /
[2021-05-24 15:03] VITALS: BP 129/63; PULSE 55; TEMP 97.6
--- NOTE | 2021-05-25 18:52 | PN ---
PROGRESS NOTE DATE OF SERVICE: 05/23/2021. CHIEF COMPLAINT: Failure to thrive, frequent falling and congestive heart failure. HISTORY OF PRESENT ILLNESS: This lady continues to do poorly. She could hardly move about without becoming short of breath. She denies chest pain. PHYSICAL EXAMINATION: She is very weak, pale and short of breath. The cardiac exam unremarkable except for murmur. Chest demonstrates poor breath sounds bilaterally with rales and occasional rhonchi. Abdomen is soft. Extremities are unchanged. IMPRESSION: 1. Failure to thrive. 2. General debility. 3. Diabetes. 4. Stasis disease with dermatitis and ulcers lower extremity. 5. Intractable heart failure. PLAN: We will be preparing her to go to [facility]. MMODL / IJN: [id number] /
== END 2021-05-24 15:14 | DRG 682 ==
LOC: EC 13:20 → 3SCARD 16:20 → 4SSUR 05-19 14:09
PROVIDERS: ADMIT Family Medicine; ATTEND Family Medicine
DX: N17.0 Acute kidney failure with tubular necrosis (principal); I50.33 Acute on chronic diastolic (congestive) heart failure; I13.0 Hypertensive heart and chronic kidney disease with heart failure and stage 1 through stage 4 chronic kidney disease, or unspecified chronic kidney disease; E87.2 Acidosis; I83.218 Varicose veins of right lower extremity with both ulcer of other part of lower extremity and inflammation; I83.228 Varicose veins of left lower extremity with both ulcer of other part of lower extremity and inflammation; L97.819 Non-pressure chronic ulcer of other part of right lower leg with unspecified severity; L97.829 Non-pressure chronic ulcer of other part of left lower leg with unspecified severity; L03.115 Cellulitis of right lower limb; L03.116 Cellulitis of left lower limb; E11.22 Type 2 diabetes mellitus with diabetic chronic kidney disease; E86.0 Dehydration; L89.629 Pressure ulcer of left heel, unspecified stage; N18.32 Chronic kidney disease, stage 3b; D63.1 Anemia in chronic kidney disease; E11.65 Type 2 diabetes mellitus with hyperglycemia; E78.5 Hyperlipidemia, unspecified; E86.1 Hypovolemia; R53.81 Other malaise; E87.5 Hyperkalemia; I27.20 Pulmonary hypertension, unspecified; R62.7 Adult failure to thrive; R29.6 Repeated falls; J44.9 Chronic obstructive pulmonary disease, unspecified; Z74.01 Bed confinement status; Z79.4 Long term (current) use of insulin; Z79.51 Long term (current) use of inhaled steroids; Z79.890 Hormone replacement therapy; Z79.899 Other long term (current) drug therapy; Z87.891 Personal history of nicotine dependence; Z80.0 Family history of malignant neoplasm of digestive organs; Z82.49 Family history of ischemic heart disease and other diseases of the circulatory system
CPT/HCPCS: 36415; 70450; 71045; 71046; 72125; 72170; 78582; 80048; 80053; 81001; 82550; 83605; 83735; 83880; 84132; 84439; 84443; 84481; 84484; 85025; 85379; 85610; 85730; 86140; 87635; 93005; 93306; 94640; 94760; 99285

== ENCOUNTER 2021-08-23 16:21 | Inpatient (IN) | payer MEDICARE, OTHER ==
--- NOTE | 2021-08-23 17:49 | ED ---
General Adult HPI - General Chief complaint: Weakness Stated complaint: Weakness Time Seen by Provider: 08/23/21 16:28 Source: EMS Mode of arrival: EMS Limitations: no limitations - History of Present Illness Initial comments: Dictation was produced using MeMeMe dictation software. please excuse any grammatical, word or spelling errors. Chief Complaint: Patient is a 81-year-old female with significant medical history presents emergency department for weakness fall and fever History of Present Illness: 81-year-old female she presents to the emergency department after fall. Patient states she's been significantly weak for the st several days. She lives at home by herself however her family members live 1 block away. She does have a home health care visiting nurse. Patient states she tripped and fell earlier today. Patient is allegedly on the ground for quite some time. Patient states she was too weak to get up. She states she's been feeling really weak for the last several days. Patient denies any chest pain. No cough. No sore throat or runny nose. No obvious exposures to anyone with URI symptoms. No dysuria. The ROS documented in this emergency department record has been reviewed and confirmed by me. Those systems with pertinent positive or negative responses have been documented in the HPI. All other systems are other negative and/or noncontributory. PHYSICAL EXAM: General Impression: Alert and oriented x3, not in acute distress HEENT: Normocephalic atraumatic, extra-ocular movements intact, pupils equal and reactive to light bilaterally, mucous membranes moist. Cardiovascular: Heart regular rate and rhythm Chest: Able to complete full sentences, no retractions, no tachypnea Abdomen: abdomen soft, non-tender, non-distended, no organomegaly Musculoskeletal: Pulses present and equal in all extremities, lymphedema to the bilateral lower extremities Motor: no focal deficits noted Neurological: CN II-XII grossly intact, no focal motor or sensory deficits noted Skin: Intact with no visualized rashes Psych: Normal affect and mood ED course: 81-year-old male who presents to the emergency department today for weakness, fall today and fever. Vital signs upon arrival are within acceptable limits. Laboratory evaluation obtained. CBC Marple. Coag panel is negative. Metabolic panel shows acidosis with a bicarb of 13. Gap is not elevated. Elevated BUN and creatinine. Patient's history of elevated kidney markers. COVID-19 test is negative. Computed tomography scan of the brain and C-spine is unremarkable. Chest x-ray shows posterior medial right lower lobe infiltrate. Pelvis x-rays nonacute. pending urine studies. Patient started on antibiotics to treat community acquired pneumonia. Patient will be admitted to Dr. Fleming. EKG interpretation: Ventricular rate 83, sinus rhythm,. 174, QRS 91, QTc 432. No KS prolongation, no QTC prolongation, no ST or T-wave changes noted. EKG compared to 07/02/2021 showing no changes. Overall, this EKG is unremarkable - Related Data Home Medications Medication Instructions Recorded Confirmed Levothyroxine Sodium 100 mcg PO DAILY 10/02/19 08/23/21 Budesonide/Formoterol Fumarate 2 puff INHALATION RT-BID 05/11/21 08/23/21 [Symbicort 80-4.5 Mcg Inhaler] Acetaminophen Tab [Tylenol] 650 mg PO Q4H PRN 07/10/21 08/23/21 Docusate [Colace] 100 mg PO BID 07/10/21 08/23/21 Ferrous Sulfate [Iron (65 MG 325 mg PO DAILY 07/10/21 08/23/21 Elemental)] Furosemide [Lasix] 20 mg PO BID 07/10/21 08/23/21 Meclizine [Antivert] 12.5 mg PO Q6H PRN 07/10/21 08/23/21 Midodrine [ProAmatine] 5 mg PO TID PRN 07/10/21 08/23/21 Ondansetron [Zofran] 4 mg PO Q6H PRN 07/10/21 08/23/21 Sacubitril/Valsartan [Entresto 24 1 tab PO BID 07/10/21 08/23/21 mg-26 mg Tablet] carvediloL [Coreg] 3.125 mg PO BID 07/10/21 08/23/21 Previous Rx's Medication Instructions Recorded Insulin Aspart Protam & Aspart 10 unit SQ HS #30 each 05/24/21 [NovoLOG MIX 70-30 Flexpen] Insulin Aspart Protam & Aspart 28 unit SQ DAILY #30 each 05/24/21 [NovoLOG MIX 70-30 Flexpen] Pantoprazole [Protonix] 40 mg PO AC-BRKFST #30 tab 05/24/21 Allergies Allergy/AdvReac Type Severity Reaction Status Date / Time Penicillins Allergy Rash/Hives Verified 08/23/21 17:21 Review of Systems ROS Statement: Those systems with pertinent positive or pertinent negative responses have been documented in the HPI. ROS Other: All systems not noted in ROS Statement are negative. Past Medical History Past Medical History: Heart Failure, COPD, Diabetes Mellitus, GERD/Reflux, Hyperlipidemia, Hypertension, Osteoarthritis (OA), Pneumonia, Skin Disorder, Thyroid Disorder Additional Past Medical History / Comment(s): IDDM type II, neuropathy L hand, bilateral lower leg venostasis/dermatitis/cellulitis/ulcers/edema, FALLS, weakness, arthritis bilateral knees, vertigo, hypothyroid History of Any Multi-Drug Resistant Organisms: None Reported Past Surgical History: Breast Surgery, Cholecystectomy, Tonsillectomy Additional Past Surgical History / Comment(s): Benign mass removed from neck, R breast benign biopsy, R eye laser surgery/pt cannot recall reason. Past Anesthesia/Blood Transfusion Reactions: No Reported Reaction Past Psychological History: No Psychological Hx Reported Smoking Status: Former smoker Past Alcohol Use History: None Reported Past Drug Use History: None Reported - Past Family History Father Family Medical History: Hypertension, Myocardial Infarction (MS) Additional Family Medical History / Comment(s): X3 MS, Mother Family Medical History: Cancer Additional Family Medical History / Comment(s): DIES FROM COLON CA General Exam Limitations: no limitations Course Vital Signs 08/23/21 08/23/21 16:54 19:21 Temperature 97.7 F 98.7 F Pulse Rate 76 87 Respiratory 18 18 Rate Blood Pressure 156/91 129/45 O2 Sat by Pulse 97 96 Oximetry Medical Decision Making - Lab Data Result diagrams: 08/23/21 Unknown 08/23/21 Unknown Lab Results 08/23/21 08/23/21 08/23/21 Range/Units Unknown Unknown Unknown WBC 10.5 (3.8-10.6) k/uL RBC 4.07 (3.80-5.40) m/uL Hgb 11.7 (11.4-16.0) gm/dL Hct 37.1 (34.0-46.0) % MCV 91.2 D (80.0-100.0) fL MCH 28.7 (25.0-35.0) pg MCHC 31.4 (31.0-37.0) g/dL RDW 15.1 (11.5-15.5) % Plt Count 324 (150-450) k/uL MPV 7.7 Neutrophils % 88 % Lymphocytes % 5 % Monocytes % 5 % Eosinophils % 0 % Basophils % 0 % Neutrophils # 9.3 H (1.3-7.7) k/uL Lymphocytes # 0.5 L (1.0-4.8) k/uL Monocytes # 0.5 (0-1.0) k/uL Eosinophils # 0.0 (0-0.7) k/uL Basophils # 0.0 (0-0.2) k/uL Hypochromasia Moderate PT 10.2 (9.0-12.0) sec INR 0.9 (<1.2) APTT 20.4 L (22.0-30.0) sec Sodium 136 L (137-145) mmol/L Potassium 5.6 H (3.5-5.1) mmol/L Chloride 111 H (98-107) mmol/L Carbon Dioxide 13 L (22-30) mmol/L Anion Gap 12 mmol/L BUN 73 H (7-17) mg/dL Creatinine 1.81 H (0.52-1.04) mg/dL Est GFR (CKD-EPI)AfAm 30 (>60 ml/min/1.73 sqM) Est GFR (CKD-EPI)NonAf 26 (>60 ml/min/1.73 sqM) Glucose 231 H (74-99) mg/dL Calcium 9.3 (8.4-10.2) mg/dL Magnesium 2.6 H (1.6-2.3) mg/dL Total Bilirubin 0.8 (0.2-1.3) mg/dL AST 28 (14-36) U/L ALT 8 (4-34) U/L Alkaline Phosphatase 123 (38-126) U/L Total Protein 6.9 (6.3-8.2) g/dL Albumin 3.3 L (3.5-5.0) g/dL Coronavirus (PCR) (Not Detectd) 08/23/21 Range/Units Unknown WBC (3.8-10.6) k/uL RBC (3.80-5.40) m/uL Hgb (11.4-16.0) gm/dL Hct (34.0-46.0) % MCV (80.0-100.0) fL MCH (25.0-35.0) pg MCHC (31.0-37.0) g/dL RDW (11.5-15.5) % Plt Count (150-450) k/uL MPV Neutrophils % % Lymphocytes % % Monocytes % % Eosinophils % % Basophils % % Neutrophils # (1.3-7.7) k/uL Lymphocytes # (1.0-4.8) k/uL Monocytes # (0-1.0) k/uL Eosinophils # (0-0.7) k/uL Basophils # (0-0.2) k/uL Hypochromasia PT (9.0-12.0) sec INR (<1.2) APTT (22.0-30.0) sec Sodium (137-145) mmol/L Potassium (3.5-5.1) mmol/L Chloride (98-107) mmol/L Carbon Dioxide (22-30) mmol/L Anion Gap mmol/L BUN (7-17) mg/dL Creatinine (0.52-1.04) mg/dL Est GFR (CKD-EPI)AfAm (>60 ml/min/1.73 sqM) Est GFR (CKD-EPI)NonAf (>60 ml/min/1.73 sqM) Glucose (74-99) mg/dL Calcium (8.4-10.2) mg/dL Magnesium (1.6-2.3) mg/dL Total Bilirubin (0.2-1.3) mg/dL AST (14-36) U/L ALT (4-34) U/L Alkaline Phosphatase (38-126) U/L Total Protein (6.3-8.2) g/dL Albumin (3.5-5.0) g/dL Coronavirus (PCR) Not Detected (Not Detectd) Disposition Clinical Impression: Weakness, Pneumonia Disposition: ADMITTED IP TO THIS HOSP Condition: Fair Referrals: Faisal Fleming MD [Primary Care Provider] - 1-2 days
[2021-08-23 17:56] LABS: Basophils % (A) 0 %; Eosinophils % (A) 0 %; HCT 37.1 % (34.0-46.0); HGB 11.7 gm/dL (11.4-16.0); Hypochromasia Moderate; Lymphocytes # (A) 0.5 k/uL (1.0-4.8); Lymphocytes % (A) 5 %; MCH 28.7 pg (25.0-35.0); MCHC 31.4 g/dL (31.0-37.0); Mean Platelet Volume 7.7; Monocytes # (A) 0.5 k/uL (0-1.0); Monocytes % (A) 5 %; Neutrophils # (A) 9.3 k/uL (1.3-7.7); Neutrophils % (A) 88 %; Platelet Count 324 k/uL (150-450); RBC 4.07 m/uL (3.80-5.40); RDW 15.1 % (11.5-15.5); WBC 10.5 k/uL (3.8-10.6)
[2021-08-23 17:57] LABS: MCV 91.2 fL (80.0-100.0)
[2021-08-23 18:00] LABS: Albumin 3.3 g/dL (3.5-5.0); Total Bilirubin 0.8 mg/dL (0.2-1.3); Total Protein 6.9 g/dL (6.3-8.2)
[2021-08-23 18:08] LABS: INR 0.9 (<1.2); Prothrombin Time 10.2 sec (9.0-12.0)
[2021-08-23 18:18] LABS: Partial Thromboplastin Time 20.4 sec (22.0-30.0)
[2021-08-23 18:20] LABS: Calcium 9.3 mg/dL (8.4-10.2); Magnesium 2.6 mg/dL (1.6-2.3); Potassium 5.6 mmol/L (3.5-5.1)
--- NOTE | 2021-08-23 18:25 | XR ---
PROCEDURE: XR pelvis AP view - 1V DATE AND TIME: 08/23/2021 6:09 PM CLINICAL INDICATION: Pain, fall TECHNIQUE: Department protocol COMPARISON: 05/11/2021 FINDINGS: There is no fracture or malalignment. The soft tissues are unremarkable. IMPRESSION: NO ACUTE PROCESS.
--- NOTE | 2021-08-23 18:28 | XR ---
EXAMINATION: XR chest 1V portable DATE AND TIME: 08/23/2021 6:09 PM CLINICAL INDICATION: Fall, fever TECHNIQUE: AP upright portable COMPARISON: 05/21/2021 FINDINGS: The lungs are predominantly clear. However, the right infrahilar position shows added opacity, suspic ious for posterior medial right lower lobe infiltrate which can correlate with a clinical diagnosis o f right lung base pneumonia. The pleural spaces are negative. The cardiac silhouette is not enlarged. The remainder of the mediastinal silhouette is unremarkable. The skeletal structures and soft tissues are negative for acute findings. IMPRESSION: Posteromedial right lower lobe infiltrate.
--- NOTE | 2021-08-23 18:36 | CT ---
EXAMINATION TYPE: CT brain cspine wo con DATE OF EXAM: 08/23/2021 COMPARISON: 05/11/2021 HISTORY: Fall. CT DLP: 1406.4 mGycm Automated exposure control for dose reduction was used. TECHNIQUE: CT scan of the head and cervical spine are performed without contrast. FINDINGS: There is no acute intracranial hemorrhage, mass effect, or midline shift identified. The ventricles and sulci are within normal limits in size. The globes are intact and the visualized sin uses are clear. Cervical spine is visualized in its entirety from C1 through upper thoracic levels and demonstrates s atisfactory alignment without evidence of acute fracture or dislocation. Prevertebral soft tissue ap pears within normal limits. The C1-C2 articulation is unremarkable. IMPRESSION: 1. There is no acute fracture or dislocation evident in the cervical spine. 2. No acute intracranial hemorrhage, mass effect, or midline shift is seen.
[2021-08-23] MEDS ORDERED: AZITHROMYCIN 500 MG in SODIUM CHLORIDE 0.9% 250 ML IVPB STA (21:06)
[2021-08-23] MEDS ORDERED: cefTRIAXone IN SWFI 1,000 MG/10 ML SYRINGE IVP STA (21:06)
[2021-08-23 23:45] LABS: Appearance,Urine Clear (Clear); Bacteria,Urine Occasional /hpf; Bilirubin,Urine Negative (Negative); Blood,Urine Negative (Negative); Color,Urine Yellow; Glucose,Urine (UA) Negative (Negative); Hyaline Casts,Urine 7 /lpf (0-2); Ketones,Urine Trace (Negative); Leukocyte Esterase,Urine Small (Negative); Mucus,Urine Rare /hpf; Nitrite,Urine Negative (Negative); Protein,Urine Trace (Negative); RBC,Urine 1 /hpf (0-5); Specific Gravity,Urine 1.017 (1.001-1.035); Squamous Epithelial Cell,Urine 3 /hpf (0-4); Urobilinogen,Urine <2.0 mg/dL (<2.0); WBC,Urine 2 /hpf (0-5)
[2021-08-24] MEDS ORDERED: PNEUMONIA PROTOCOL UTILIZED 1 EACH MISC PO PRN (08:00)
[2021-08-24] MEDS ORDERED: DEXTROSE 5%-0.45% NACL 1,000 ML IV SCH (13:30)
--- NOTE | 2021-08-24 17:52 | HP ---
HISTORY AND PHYSICAL CHIEF COMPLAINT: Weakness, pneumonitis and failure to thrive. HISTORY OF PRESENT ILLNESS: This is another admission for this 81-year-old generally debilitated and weak white female. She just got out of [place]. When she is at home she simply sits in a chair all the time. She lives by herself. This results in dependent edema, venostasis disease with cellulitis and necrotic ulcers as well as a longstanding problem with plantar heel decubitus ulcers. Apparently she was not able to get up, summoned an ambulance and came in. She cannot live alone. REVIEW OF SYSTEMS: She denies any confusion, headaches, difficulty with vision or hearing, lateralizing neurologic signs or symptoms, chest pain, etc. She has been a little bit short of breath. X-rays in the emergency room suggested that she may have pneumonia. She does not have abdominal pain, diarrhea, melena, nausea, vomiting, hematemesis, incontinence, etc. Past medical history, family history, and personal and social histories are all otherwise unremarkable and non-contributory. PHYSICAL EXAMINATION: Blood pressure is 132/81, respirations are 32. She is afebrile. In general she appeared to be pale, weak and dehydrated. Head, ears, eyes, nose, mouth and throat were normal other than the dehydration. Chest was fairly clear. There were scattered rales. Cardiac exam was normal. The abdomen was soft and non-tender. Extremities demonstrated 4+ dependent edema with cellulitis of both lower legs and several small ulcerations. Neurologically she was intact but weak. She is admitted to the hospital with the diagnoses: 1. Generalized weakness and debility. 2. Dehydration. 3. Pneumonitis. 4. 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 PLAN: 1. Bedrest. 2. IV fluids. 3. Rehydrate. 4. Discharge planning. She should wind up in a long-term care facility eventually. MMODL / IJN: [id number] /
[2021-08-24] MEDS ORDERED: MECLIZINE 12.5 MG TAB PO PRN (20:06)
[2021-08-24] MEDS: DOCUSATE 100 MG CAP PO SCH (20:41)
[2021-08-24] MEDS: SODIUM CHLORIDE 0.45% 1,000 ML IV SCH (20:41)
[2021-08-24] MEDS: AZITHROMYCIN 500 MG TAB PO SCH (20:41)
[2021-08-25] MEDS: SODIUM CHLORIDE 0.45% 1,000 ML IV SCH ×3 (01:01→17:20)
[2021-08-25] MEDS: LEVOTHYROXINE 100 MCG TAB PO SCH (05:42)
--- NOTE | 2021-08-25 08:14 | XR ---
EXAMINATION TYPE: XR chest 2V DATE OF EXAM: 08/25/2021 8:08 AM COMPARISON:Chest radiographs from 05/02/2022 TECHNIQUE: XR chest 2V Frontal and lateral views of the chest. CLINICAL INDICATION:Female, 81 years old with history of pneumonia; FINDINGS: Lungs/Pleura: Similar right lower lobe airspace opacities. No evidence of pneumothorax or pleural eff usion. Pulmonary vascularity: Unremarkable. Heart/mediastinum: Cardiomediastinal silhouette is unremarkable. Musculoskeletal: No acute osseous pathology. IMPRESSION: Similar right lower lobe airspace opacities.
[2021-08-25] MEDS: DOCUSATE 100 MG CAP PO SCH ×2 (09:04→20:52)
[2021-08-25] MEDS: PANTOPRAZOLE 40 MG TABLET PO SCH (09:04)
[2021-08-25] MEDS: FERROUS SULFATE 325 MG TAB PO SCH (09:04)
[2021-08-25] MEDS: SYMBICORT 80-4.5 MCG INHALER INHALATION SCH ×2 (09:20→21:11)
[2021-08-25 09:26] LABS: African American GFR (CKD) 40.7 (60.0-200.0); Anion Gap 11.7 mmol/L (10.00-18.00); BUN/Creat Ratio 40.43 Ratio (12.00-20.00); Basophils # (A) 0.03 X 10*3/uL (0.00-0.10); Basophils % (A) 0.3 %; Blood Urea Nitrogen 56.6 mg/dL (9.0-27.0); Calcium 8.4 mg/dL (8.7-10.3); Carbon Dioxide 17.3 mmol/L (20.0-27.5); Eosinophils # (A) 0.45 X 10*3/uL (0.04-0.35); Eosinophils % (A) 4.6 %; HCT 28.8 % (37.2-46.3); HGB 8.8 g/dL (12.0-15.0); Immature Grans, Automated 1.1 %; Lymphocytes # (A) 0.86 X 10*3/uL (0.90-5.00); Lymphocytes % (A) 8.8 %; MCH 27.3 pg (27.0-32.0); MCHC 30.6 g/dL (32.0-37.0); MCV 89.4 fL (80.0-97.0); Mean Platelet Volume 10.7 fL (9.5-12.2); Monocytes # (A) 0.62 X 10*3/uL (0.20-1.00); Monocytes % (A) 6.3 %; NRBC Per 100 WBC 0 /100 WBCS (0.0-0.0); Neutrophils % (A) 78.9 %; Non-African American GFR(CKD) 35.1 (60.0-200.0); Platelet Count 290 X 10*3/uL (140-440); Potassium 4.4 mmol/L (3.5-5.5); RBC 3.22 X 10*6/uL (4.10-5.20); RDW 15.6 % (11.5-14.5); WBC 9.77 X 10*3/uL (4.50-10.00)
[2021-08-25 12:47] VITALS: BMI 40.5
--- NOTE | 2021-08-25 19:19 | PN ---
PROGRESS NOTE DATE OF SERVICE: 08/25/2021 This 81-year-old woman who was admitted with acute pneumonia and weakness is being closely monitored. No chest pain. No palpitations. No fever. The patient is on broad-spectrum IV antibiotics. Past medical history reviewed. REVIEW OF SYSTEMS: CARDIOVASCULAR SYSTEM: No angina. RESPIRATION: As mentioned earlier. GI: As mentioned earlier. : No dysuria. NERVOUS SYSTEM: No numbness, weakness. MEDICATIONS: Reviewed. They include Zithromax, Tylenol, Symbicort, Rocephin. Doses are reviewed. PHYSICAL EXAMINATION: Pulse 64, blood pressure respiration 18. HEENT: Conjunctivae normal. CARDIOVASCULAR: S1, S2 muffled. RESPIRATION: Breath sounds diminished at the bases. A few scattered rhonchi and crackles. ABDOMEN: Soft, nontender. LEGS: No edema. No swelling. NERVOUS SYSTEM: Diffusely weak. LAB: Hemoglobin 8.8. Other labs are noted. Chest x-ray reviewed personally. ASSESSMENT: 1. Acute right lower lobe pneumonia. 2. Dehydration. 3. Generalized weakness and debility. 4. Venostasis disease. RECOMMENDATIONS AND DISCUSSION: I recommend to continue current medications, continue with the monitoring, symptomatic treatment. Continue with the antibiotics. See orders for details. Repeat labs. PT/OT evaluation, possible ECF rehab. MMODL / IJN: [id number] / NGHIA
[2021-08-25] MEDS: AZITHROMYCIN 500 MG TAB PO SCH (20:52)
[2021-08-26] MEDS: LEVOTHYROXINE 100 MCG TAB PO SCH (05:26)
[2021-08-26 07:59] LABS: Glucose,Whole Blood 203 mg/dL (75-99)
[2021-08-26] MEDS: SYMBICORT 80-4.5 MCG INHALER INHALATION SCH ×2 (08:35→19:59)
[2021-08-26] MEDS: PANTOPRAZOLE 40 MG TABLET PO SCH (09:26)
[2021-08-26] MEDS: INSULIN ASPART (NovoLOG) 100 UNIT/ML VIAL SQ SCH ×3 (09:28→18:12)
[2021-08-26] MEDS: FERROUS SULFATE 325 MG TAB PO SCH (09:29)
[2021-08-26] MEDS: DOCUSATE 100 MG CAP PO SCH ×2 (09:29→21:29)
[2021-08-26 12:11] LABS: Glucose,Whole Blood 153 mg/dL (75-99)
[2021-08-26] MEDS ORDERED: MIDODRINE 5 MG TAB PO PRN (15:36)
[2021-08-26] MEDS ORDERED: ONDANSETRON 4 MG TAB PO PRN (15:36)
[2021-08-26] MEDS: FUROSEMIDE 10 MG/ML 4 ML VIAL IV SCH (17:07)
[2021-08-26 17:32] LABS: Glucose,Whole Blood 143 mg/dL (75-99)
[2021-08-26] MEDS: carvediloL 3.125 MG TAB PO SCH (18:11)
--- NOTE | 2021-08-26 20:04 | PN ---
PROGRESS NOTE DATE OF SERVICE: 08/26/2021 This 81-year-old woman who was admitted with acute right lower lobe pneumonia also had some congestion. A chest x-ray done today which was reviewed personally by me showed evidence of some haziness. No chest pain. No palpitations. No fever. PHYSICAL EXAMINATION: Pulse 66, blood pressure 150/52, respiration 18. CHEST: A few scattered rhonchi. ABDOMEN: Soft, nontender. NERVOUS SYSTEM: No focal deficit. Diffusely weak. LABS: WBC 9.7, hemoglobin is 8.8. Accu-Cheks noted. ASSESSMENT: 1. Acute right lower lobe pneumonia. 2. Dehydration. 3. Generalized weakness and debility. 4. Venostasis disease. RECOMMENDATIONS AND DISCUSSION: I recommend to continue current medications, continue with the monitoring, symptomatic treatment. Continue with the antibiotics. PT/OT evaluation. Further recommendations to follow. MMIRVINL / HEAVENLYN: [id number] /
[2021-08-26 21:12] LABS: Glucose,Whole Blood 182 mg/dL (75-99)
[2021-08-26] MEDS: SACUBITRIL/VALSARTAN 24 MG-26 MG TABLET PO SCH (21:29)
[2021-08-26] MEDS: INSULN ASP PRT/INSULIN ASPART 100 UNIT/ML 10 ML VIAL SQ SCH (21:30)
[2021-08-27 01:28] LABS: Glucose,Whole Blood 124 mg/dL (75-99)
[2021-08-27] MEDS: INSULIN ASPART (NovoLOG) 100 UNIT/ML VIAL SQ SCH ×5 (01:54→20:07)
[2021-08-27] MEDS: LEVOTHYROXINE 100 MCG TAB PO SCH (05:51)
[2021-08-27 07:16] LABS: Glucose,Whole Blood 125 mg/dL (75-99)
[2021-08-27] MEDS: SYMBICORT 80-4.5 MCG INHALER INHALATION SCH ×2 (08:46→20:40)
[2021-08-27] MEDS: FERROUS SULFATE 325 MG TAB PO SCH ×2 (10:12→10:39)
[2021-08-27] MEDS: DOCUSATE 100 MG CAP PO SCH ×2 (10:12→20:07)
[2021-08-27] MEDS: PANTOPRAZOLE 40 MG TABLET PO SCH (10:12)
[2021-08-27] MEDS: carvediloL 3.125 MG TAB PO SCH ×2 (10:12→18:29)
[2021-08-27] MEDS: SACUBITRIL/VALSARTAN 24 MG-26 MG TABLET PO SCH ×2 (10:13→20:40)
[2021-08-27] MEDS: FUROSEMIDE 10 MG/ML 4 ML VIAL IV SCH (10:14)
[2021-08-27] MEDS: INSULN ASP PRT/INSULIN ASPART 100 UNIT/ML 10 ML VIAL SQ SCH ×2 (10:16→20:08)
[2021-08-27] MEDS: ACETAMINOPHEN TAB 325 MG TAB PO PRN (11:25)
[2021-08-27 12:54] LABS: Glucose,Whole Blood 117 mg/dL (75-99)
--- NOTE | 2021-08-27 13:38 | P.CONS ---
History of Present Illness - Reason for Consult Consult date: 08/27/21 wound care - History of Present Illness This is an 80-year-old patient being seen by the wound care center for nonhealing ulcerations to the coccyx, right calcaneus, medial posterior aspect of the right lower extremity and the lateral and anterior aspect of the left lower extremity. Patient was seen previously in November for the same ulcerations she was being treated at [facility] [place] by Dr. Beckwith with Santyl. At this time placido orta was at home being treated by residential she was unsure of the product that was being used. Patient states that the ulcerations have been improving. Coccyx ulceration is a stage II pressure ulcer with multiple open areas. Maceration noted minimal granulation with nonviable tissue present. Right calcaneus ulceration is a stage I pressure ulcer Right medial ulceration is a cluster of 6 ulcerations that that layer exposure wound edges are attached to the wound base significant amount of slough and nonviable tissues noted with minimal granulation seen within the wound beds. No undermining or tunneling noted. Left lower extremity ulceration lateral and posterior aspects are cluster of 4 ulcerations with fat layer exposure wound edges are attached to the wound base. Significant amount of slough and nonviable tissue noted with minimal granulation. Serous drainage noted to the site. No undermining or tunneling noted. Past medical history includes heart failure, COPD, diabetes, hypertension, hyperlipidemia, osteoporosis, and hiatal hernia. Review Of Systems: Constitutional: No fever, no chills, no night sweats. No weight change. No weakness, fatigue or lethargy. No daytime sleepiness. Integumentary:reports wounds, no lesions. No rash or pruritus. No unusual bruising. No change in hair or nails. Physical exam: General Appearance: Alert, cooperative, no distress, appears stated age. Skin: See HPI all other Skin color, texture, tugor normal, no rashes or lesions. Neurologic: Alert oriented x3 Assessment: 1. Stage II pressure ulcer coccyx 2. Nonhealing ulceration with fat layer exposure left medial anterior aspect 3. Nonhealing ulceration with fat layer exposure right lower extremity medial aspect 4. Stage I pressure ulcer right calcaneus Plan: 1. Apply honey alginate to all ulcerations saline moistened gauze, dry gauze, rolled gauze secured with paper tape. Change Friday. Patient would benefit from continued advanced wound care and debridement in the outpatient setting. We'll be happy to see her in the wound care center upon discharge. 2. Keep lower extremities elevated. 3. Elevate lower extremities 30 minutes a day higher than heart level. 4. Apply foam heel protectors Thank you for the consultation any questions please contact the wound care center DNP note has been reviewed and discussed with Dr. Barone and the impression and plan of care has been directed as dictated. Past Medical History Past Medical History: Heart Failure, COPD, Diabetes Mellitus, GERD/Reflux, Hyperlipidemia, Hypertension, Osteoarthritis (OA), Pneumonia, Skin Disorder, Thyroid Disorder Additional Past Medical History / Comment(s): IDDM type II, neuropathy L hand, bilateral lower leg venostasis/dermatitis/cellulitis/ulcers/edema, FALLS, weakness, arthritis bilateral knees, vertigo, hypothyroid History of Any Multi-Drug Resistant Organisms: None Reported Past Surgical History: Breast Surgery, Cholecystectomy, Tonsillectomy Additional Past Surgical History / Comment(s): Benign mass removed from neck, R breast benign biopsy, R eye laser surgery/pt cannot recall reason. Past Anesthesia/Blood Transfusion Reactions: No Reported Reaction Past Psychological History: No Psychological Hx Reported Additional Psychological History / Comment(s): Pt recently was at [facility] for rehab and was discharged from there on 07/05/21. She is to establish with Residential home care. Her [facility] live nearby and assist pt with getting groceries, housework. Pt states she can no longer get out of her 2 story home d/t stairs at both doors. She lives on the first floor. She gets meals on wheels. She ambulates with a walker. She manages her own medications and sponge bathes and dresses herself. Smoking Status: Former smoker Past Alcohol Use History: None Reported Additional Past Alcohol Use History / Comment(s): Pt started smoking in 1959 and quit in 1999 Past Drug Use History: None Reported - Past Family History Father Family Medical History: Hypertension, Myocardial Infarction (GA) Additional Family Medical History / Comment(s): X3 [place], Mother Family Medical History: Cancer Additional Family Medical History / Comment(s): DIES FROM COLON CA Medications and Allergies Home Medications Medication Instructions Recorded Confirmed Type Levothyroxine Sodium 100 mcg PO DAILY 10/02/19 08/23/21 History Budesonide/Formoterol Fumarate 2 puff INHALATION RT-BID 05/11/21 08/23/21 Histo ry [Symbicort 80-4.5 Mcg Inhaler] Insulin Aspart Protam & Aspart 10 unit SQ HS #30 each 05/24/21 08/23/21 Rx [NovoLOG MIX 70-30 Flexpen] Insulin Aspart Protam & Aspart 28 unit SQ DAILY #30 each 05/24/21 08/23/21 Rx [NovoLOG MIX 70-30 Flexpen] Pantoprazole [Protonix] 40 mg PO AC-BRKFST #30 tab 05/24/21 08/23/21 Rx Acetaminophen Tab [Tylenol] 650 mg PO Q4H PRN 07/10/21 08/23/21 History Docusate [Colace] 100 mg PO BID 07/10/21 08/23/21 History Ferrous Sulfate [Iron (65 MG 325 mg PO DAILY 07/10/21 08/23/21 History Elemental)] Furosemide [Lasix] 20 mg PO BID 07/10/21 08/23/21 History Meclizine [Antivert] 12.5 mg PO Q6H PRN 07/10/21 08/23/21 History Midodrine [ProAmatine] 5 mg PO TID PRN 07/10/21 08/23/21 History Ondansetron [Zofran] 4 mg PO Q6H PRN 07/10/21 08/23/21 History Sacubitril/Valsartan [Entresto 24 1 tab PO BID 07/10/21 08/23/21 History mg-26 mg Tablet] carvediloL [Coreg] 3.125 mg PO BID 07/10/21 08/23/21 History Allergies Allergy/AdvReac Type Severity Reaction Status Date / Time Penicillins Allergy Rash/Hives Verified 08/23/21 17:21 Physical Exam Vitals: Vital Signs Temp Pulse Resp BP Pulse Ox 08/27/21 10:14 77 16 08/27/21 08:00 198/83 08/27/21 07:00 97.9 F 77 16 166/69 95 08/27/21 01:33 98.4 F 72 153/55 97 08/26/21 20:00 95 08/26/21 19:59 98.5 F 76 17 152/60 97 08/26/21 15:39 94 L 08/26/21 15:30 89 L 08/26/21 15:00 98.2 F 66 18 150/55 93 L Intake and Output 08/26/21 08/27/21 08/27/21 22:59 06:59 14:59 Intake Total 118 Output Total 700 850 625 Balance -700 -908 -507 Intake: Oral 118 Output: Urine 519 531 533 Other: Voiding Method Indwelling Catheter # Voids 0 Results CBC & Chem 7: 08/25/21 05:52 08/25/21 05:52 Labs: Abnormal Lab Results - Last 24 Hours (Table) 08/26/21 08/26/21 08/27/21 Range/Units 17:31 21:11 01:26 POC Glucose (mg/dL) 143 H 182 H 124 H (75-99) mg/dL 08/27/21 08/27/21 Range/Units 07:14 12:53 POC Glucose (mg/dL) 125 H 117 H (75-99) mg/dL Microbiology - Last 24 Hours (Table) 08/24/21 08:45 Blood Culture - Preliminary Blood No Growth after 72 hours 08/24/21 08:30 Blood Culture - Preliminary Blood No Growth after 72 hours Assessment and Plan (1) Pressure injury of coccygeal region, stage 2 Current Visit: No Status: Acute Code(s): L89.152 - PRESSURE ULCER OF SACRAL REGION, STAGE 2 SNOMED Code(s): 196448515 (2) Pressure ulcer of right heel, stage 1 Current Visit: Yes Status: Acute Code(s): L89.611 - PRESSURE ULCER OF RIGHT HEEL, STAGE 1 SNOMED Code(s): 434747881 (3) Diabetes mellitus with skin ulcer Current Visit: No Status: Acute Code(s): E11.622 - TYPE 2 DIABETES MELLITUS WITH OTHER SKIN ULCER; L98.499 - NON-PRESSURE CHRONIC ULCER OF SKIN OF SITES W UNSP SEVERITY SNOMED Code(s): 84362824 (4) Nonhealing ulcer of left lower extremity with fat layer exposed Current Visit: No Status: Acute Code(s): L97.922 - NON-PRS CHR ULC UNSP PRT OF L LOW LEG W FAT LAYER EXPOSED SNOMED Code(s): 00369757 (5) Nonhealing ulcer of right lower extremity with fat layer exposed Current Visit: No Status: Acute Code(s): L97.912 - NON-PRS CHR ULC UNSP PRT OF R LOW LEG W FAT LAYER EXPOSED SNOMED Code(s): 97425885
--- NOTE | 2021-08-27 15:31 | PN ---
PROGRESS NOTE DATE OF SERVICE: 08/27/2021 This 81-year-old woman who was admitted with acute right lower lobe pneumonia also complains of some weakness. No chest pain. No palpitations. No fever. Occasional cough is reported. PHYSICAL EXAMINATION: Pulse 77, blood pressure 198/93, respirations 16. HEENT: Conjunctivae normal. CARDIOVASCULAR: S1, S2 muffled. RESPIRATION: Breath sounds diminished at the bases. A few scattered rhonchi and crackles. ABDOMEN: Soft, nontender. NERVOUS SYSTEM: Diffusely weak. LABS: Accu-Cheks 117. ASSESSMENT: 1. Acute right lower lobe pneumonia. 2. Dehydration. 3. Generalized weakness and debility. 4. Venostasis disease. RECOMMENDATIONS AND DISCUSSION: I recommend to continue current medications. PT/OT evaluation. Antibiotics. Consider ECF rehab. FAHAD / ARNALDO: [id number] /
[2021-08-27 17:48] LABS: Glucose,Whole Blood 75 mg/dL (75-99)
[2021-08-27 20:05] LABS: Glucose,Whole Blood 107 mg/dL (75-99)
[2021-08-28 01:31] LABS: Glucose,Whole Blood 74 mg/dL (75-99)
[2021-08-28] MEDS: INSULIN ASPART (NovoLOG) 100 UNIT/ML VIAL SQ SCH ×5 (01:36→22:42)
[2021-08-28] MEDS: LEVOTHYROXINE 100 MCG TAB PO SCH (05:37)
[2021-08-28 07:53] LABS: Glucose,Whole Blood 106 mg/dL (75-99)
[2021-08-28] MEDS: SYMBICORT 80-4.5 MCG INHALER INHALATION SCH ×2 (08:10→20:49)
[2021-08-28] MEDS: DOCUSATE 100 MG CAP PO SCH ×2 (09:09→20:25)
[2021-08-28] MEDS: PANTOPRAZOLE 40 MG TABLET PO SCH (09:09)
[2021-08-28] MEDS: carvediloL 3.125 MG TAB PO SCH ×2 (09:09→20:25)
[2021-08-28] MEDS: SACUBITRIL/VALSARTAN 24 MG-26 MG TABLET PO SCH ×2 (09:10→20:25)
[2021-08-28] MEDS: FERROUS SULFATE 325 MG TAB PO SCH (09:10)
[2021-08-28] MEDS: ACETAMINOPHEN TAB 325 MG TAB PO PRN (09:10)
[2021-08-28] MEDS: FUROSEMIDE 10 MG/ML 4 ML VIAL IV SCH (09:40)
[2021-08-28 11:46] LABS: Glucose,Whole Blood 181 mg/dL (75-99)
[2021-08-28] MEDS ORDERED: IPRATROPIUM-ALBUTEROL 3 ML NEB INHALATION PRN (12:38)
[2021-08-28] MEDS: INSULN ASP PRT/INSULIN ASPART 100 UNIT/ML 10 ML VIAL SQ SCH ×2 (13:21→22:06)
--- NOTE | 2021-08-28 14:58 | PN ---
PROGRESS NOTE DATE OF SERVICE: 08/28/2021 This 81-year-old woman who was admitted with acute right lower lobe pneumonia is generally weak also. No chest pain. No palpitation. PHYSICAL EXAMINATION: Pulse is 71, blood pressure 140/69, respiration 22. CARDIOVASCULAR: S1, S2 muffled. No murmur. No thrills. RESPIRATION: Breath sounds diminished at the bases. A few scattered rhonchi. ABDOMEN: Soft, nontender. NERVOUS SYSTEM: Diffusely weak. LABS: Accu-Cheks 181. ASSESSMENT: 1. Acute right lower lobe pneumonia. 2. Dehydration. 3. Generalized weakness and debility. 4. Venostasis disease. RECOMMENDATIONS AND DISCUSSION: I recommend to continue current medications, continue with the monitoring, symptomatic treatment. Continue with antibiotics. PT/OT evaluation, possible ECF rehab. MMZAC / HEAVENLYN: [id number] /
[2021-08-28] MEDS: IPRATROPIUM-ALBUTEROL 3 ML NEB INHALATION SCH ×2 (15:57→20:49)
[2021-08-28 17:27] LABS: Glucose,Whole Blood 96 mg/dL (75-99)
[2021-08-28 21:11] LABS: Glucose,Whole Blood 186 mg/dL (75-99)
[2021-08-29 03:18] LABS: Glucose,Whole Blood 115 mg/dL (75-99)
[2021-08-29] MEDS: INSULIN ASPART (NovoLOG) 100 UNIT/ML VIAL SQ SCH ×5 (03:21→23:50)
[2021-08-29] MEDS: LEVOTHYROXINE 100 MCG TAB PO SCH (05:18)
[2021-08-29] MEDS: IPRATROPIUM-ALBUTEROL 3 ML NEB INHALATION SCH ×3 (08:00→20:18)
[2021-08-29] MEDS: SYMBICORT 80-4.5 MCG INHALER INHALATION SCH ×2 (08:00→20:18)
[2021-08-29] MEDS: DOCUSATE 100 MG CAP PO SCH ×2 (08:34→19:43)
[2021-08-29] MEDS: PANTOPRAZOLE 40 MG TABLET PO SCH (08:34)
[2021-08-29] MEDS: SACUBITRIL/VALSARTAN 24 MG-26 MG TABLET PO SCH ×2 (08:34→19:42)
[2021-08-29] MEDS: FERROUS SULFATE 325 MG TAB PO SCH (08:34)
[2021-08-29] MEDS: FUROSEMIDE 10 MG/ML 4 ML VIAL IV SCH (08:35)
[2021-08-29 08:43] LABS: Glucose,Whole Blood 116 mg/dL (75-99)
[2021-08-29] MEDS: INSULN ASP PRT/INSULIN ASPART 100 UNIT/ML 10 ML VIAL SQ SCH ×2 (08:47→21:54)
[2021-08-29] MEDS: carvediloL 3.125 MG TAB PO SCH ×3 (08:50→19:42)
[2021-08-29 09:26] LABS: Basophils # (A) 0.06 X 10*3/uL (0.00-0.10); Basophils % (A) 0.8 %; Eosinophils # (A) 0.44 X 10*3/uL (0.04-0.35); Eosinophils % (A) 5.9 %; HCT 30.8 % (37.2-46.3); Immature Grans, Automated 2.4 %; Lymphocytes # (A) 1.24 X 10*3/uL (0.90-5.00); Lymphocytes % (A) 16.5 %; MCH 26.6 pg (27.0-32.0); MCHC 29.2 g/dL (32.0-37.0); MCV 91.1 fL (80.0-97.0); Mean Platelet Volume 10.7 fL (9.5-12.2); Monocytes # (A) 0.74 X 10*3/uL (0.20-1.00); Monocytes % (A) 9.9 %; NRBC Per 100 WBC 0 /100 WBCS (0.0-0.0); Neutrophils # (A) 4.85 X 10*3/uL (1.80-7.70); Neutrophils % (A) 64.5 %; Platelet Count 294 X 10*3/uL (140-440); RBC 3.38 X 10*6/uL (4.10-5.20); RDW 15.4 % (11.5-14.5); WBC 7.51 X 10*3/uL (4.50-10.00)
[2021-08-29 09:49] LABS: ALT <5 U/L (8-44); AST 11 U/L (13-35); African American GFR (CKD) 44.6 (60.0-200.0); Albumin 2.4 g/dL (3.8-4.9); Albumin/Globulin Ratio 0.86 (1.60-3.17); Alkaline Phosphatase 93 U/L (41-126); BUN/Creat Ratio 24.15 Ratio (12.00-20.00); Blood Urea Nitrogen 31.4 mg/dL (9.0-27.0); Calcium 8.8 mg/dL (8.7-10.3); Carbon Dioxide 22.2 mmol/L (20.0-27.5); Chloride 113 mmol/L (96-109); Globulin 2.8 g/dL (1.6-3.3); Glucose 104 mg/dL (70-110); Non-African American GFR(CKD) 38.4 (60.0-200.0); Sodium 146 mmol/L (135-145); Total Bilirubin <0.15 mg/dL (0.30-1.20); Total Protein 5.2 g/dL (6.2-8.2)
[2021-08-29 12:03] LABS: Glucose,Whole Blood 57 mg/dL (75-99)
[2021-08-29 12:03] LABS: Glucose,Whole Blood 51 mg/dL (75-99)
[2021-08-29] MEDS: ACETAMINOPHEN TAB 325 MG TAB PO PRN ×2 (12:05→19:42)
[2021-08-29 12:35] LABS: Glucose,Whole Blood 83 mg/dL (75-99)
--- NOTE | 2021-08-29 14:30 | US ---
EXAMINATION TYPE: US abdomen limited DATE OF EXAM: 08/29/2021 COMPARISON: NONE CLINICAL HISTORY: abdominal pain, nausea. recent left paraumbilical hernia repair 2 weeks ago, patien t states she felt palpable area but EC physician was able to push it back in. Assess for hernia at location of: paraumbilical - lt Scanned region of complaint and there is a fluid collection noted. No change was seen with or without valsalva. Unknown etiology. IMPRESSION: There is a small fluid collection seen in the periumbilical space. Recommend CT scan of the abdomen. Real-time scanning was performed by the digital operations analyst utilizing Valsalva and additional dynamic maneuve rs to assess for hernia. Images of the contralateral side were also acquired for direct comparison.
[2021-08-29 17:16] LABS: Glucose,Whole Blood 132 mg/dL (75-99)
[2021-08-29 20:41] LABS: Glucose,Whole Blood 232 mg/dL (75-99)
--- NOTE | 2021-08-29 22:30 | P.PN ---
Subjective Progress Note Date: 08/29/21 08/29/2021 Patient is an 81 year old female who was admitted with acute right lower lobe pneumonia and generalized weakness and is being closely monitored. Patient having nausea today and some abdominal discomfort at the umbilical site. Palpated periumbilical hernia on exam and patient reports to having a hernia and was reduced by the ER previously. Will order abdominal ultrasound. Sodium is 145 today and will repeat am labs. Patient continues on daily IV lasix. Wound care following as well. Review of systems: Constitutional: No reports of fatigue, fever, or chills Cardiovascular: No reports of chest pain or palpitations Respiratory: No reports of worsening shortness of breath or cough GI: reports of nausea, no reports of vomiting, or diarrhea, reports midabdominal pain at the umbilicus : No reports of dysuria or retention Neurovascular: reports of generalized weakness All medications have been reviewed Active Medications Acetaminophen (Acetaminophen Tab 325 Mg Tab) 650 mg PO Q4H PRN PRN Reason: Pain or Fever > 100.5 Last Admin: 08/29/21 19:42 Dose: 650 mg Documented by: Albuterol/Ipratropium (Ipratropium-Albuterol 3 Ml Neb) 3 ml INHALATION RT-TID [facility] Last Admin: 08/29/21 20:18 Dose: 3 ml Documented by: Albuterol/Ipratropium (Ipratropium-Albuterol 3 Ml Neb) 3 ml INHALATION RT-TID PRN PRN Reason: Shortness Of Breath Or Wheezing Budesonide/Formoterol Fumarate (Symbicort 80-4.5 Mcg Inhaler) 2 puff INHALATION RT-BID [facility] Last Admin: 08/29/21 20:18 Dose: 2 puff Documented by: Carvedilol (Carvedilol 3.125 Mg Tab) 3.125 mg PO AC-BID [facility] Last Admin: 08/29/21 19:42 Dose: 3.125 mg Documented by: Docusate Sodium (Docusate 100 Mg Cap) 100 mg PO BID [facility] Last Admin: 08/29/21 19:43 Dose: Not Given Documented by: Ferrous Sulfate (Ferrous Sulfate 325 Mg Tab) 325 mg PO DAILY [facility] Last Admin: 08/29/21 08:34 Dose: 325 mg Documented by: Furosemide (Furosemide 10 Mg/Ml 4 Ml Vial) 40 mg IV DAILY [facility] Last Admin: 08/29/21 08:35 Dose: 40 mg Documented by: Insulin Aspart (Insulin Aspart (Novolog) 100 Unit/Ml Vial) 0 unit SQ [id number] [facility]; Protocol Last Admin: 08/29/21 17:38 Dose: Not Given Documented by: Insulin Aspart (Insuln Asp Prt/Insulin Aspart 100 Unit/Ml 10 Ml Vial) 10 unit SQ HS [facility] Last Admin: 08/29/21 21:54 Dose: 10 unit Documented by: Insulin Aspart (Insuln Asp Prt/Insulin Aspart 100 Unit/Ml 10 Ml Vial) 28 unit SQ DAILY [facility] Last Admin: 08/29/21 08:47 Dose: 28 unit Documented by: Levothyroxine Sodium (Levothyroxine 100 Mcg Tab) 100 mcg PO DAILY@0630 [facility] Last Admin: 08/29/21 05:18 Dose: 100 mcg Documented by: Meclizine HCl (Meclizine 12.5 Mg Tab) 12.5 mg PO Q6H PRN PRN Reason: DIZZINESS Midodrine (Midodrine 5 Mg Tab) 5 mg PO TID PRN PRN Reason: SYSTOLIC BP BELOW 100 Miscellaneous Information (Pneumonia Protocol Utilized 1 Each Misc) 1 each PO ONCE PRN PRN Reason: Per Protocol Ondansetron HCl (Ondansetron 4 Mg Tab) 4 mg PO Q6H PRN PRN Reason: Nausea Pantoprazole Sodium (Pantoprazole 40 Mg Tablet) 40 mg PO AC-BRKFST [facility] Last Admin: 08/29/21 08:34 Dose: 40 mg Documented by: Sacubitril/Valsartan (Sacubitril/Valsartan 24 Mg-26 Mg Tablet) 1 each PO BID [facility] Last Admin: 08/29/21 19:42 Dose: 1 each Documented by: PHYSICAL EXAMINATION: GENERAL: The patient is alert and oriented x3, morbidly obese, Well developed, well nourished. HEENT: Pupils are round and equally reacting to light. EOMI. does have scleral icterus. No conjunctival pallor. Normocephalic, atraumatic. No pharyngeal erythema. No thyromegaly. CARDIOVASCULAR: S1 and S2 muffled PULMONARY: diminished breath sounds bilaterally with Few scattered rhonchi noted. ABDOMEN: soft. obese. Non-distended, normoactive bowel sounds. No palpable organomegaly. palpated periumbilical hernia MUSCULOSKELETAL: No joint swelling or deformity. EXTREMITIES: No cyanosis, clubbing, or pedal edema. NEUROLOGICAL: Gross neurological examination did not reveal any focal deficits. diffusely weak SKIN: as noted by wound care. Assessment: Acute right lower lobe pneumonia Dehydration hypernatremia possible umbilical hernia Generalized weakness and medical debility Venostasis disease Plan: Recommend to continue with current medications and symptomatic treatment. Patient is nauseated today and denies vomiting. Patient reports the nausea starting shortly after breakfast. Patient also reports some abdominal discomfort and umbilical hernia. Patient reports to having history of hernia that has been reduced in the ER on previous admission. Abdominal ultrasound shows small fluid collection noted in the periumbilical space. Will consult general surgery and appreciate input and recommendations. PT/OT and social work following as patient is now agreeable to [facility]. Will repeat am labs. Due to multiple complex medical issues, prognosis is guarded. The impression and plan of care has been dictated by Zenaida Frank, nurse practitioner as directed. MD Mireya I have performed a history and examination and MDM of this patient, discussed the same with the dictator, and agree with the dictator's assessment and plan as written ,documented as a scribe. Based on total visit time, I have performed more than 50% of the visit. Any additional findings or plans will be noted. Objective - Vital Signs Vital signs: Vital Signs Temp 99.1 F 08/29/21 07:30 Pulse 64 08/29/21 08:16 Resp 21 08/29/21 07:30 BP 124/55 08/29/21 07:30 Pulse Ox 94 L 08/29/21 07:30 Intake & Output 08/28/21 08/29/21 08/29/21 18:59 06:59 18:59 Intake Total 220 120 Output Total 1200 1000 Balance -980 -1000 120 Intake: Oral 220 120 Output: Urine 1200 1000 Other: Voiding Method Indwelling Catheter # Bowel Movements 0 - Labs CBC & Chem 7: 08/29/21 05:54 08/29/21 05:54 Labs: Abnormal Lab Results - Last 24 Hours (Table) 08/28/21 08/28/21 08/29/21 Range/Units 11:45 21:09 03:17 RBC (4.10-5.20) X 10*6/uL Hgb (12.0-15.0) g/dL Hct (37.2-46.3) % MCH (27.0-32.0) pg MCHC (32.0-37.0) g/dL RDW (11.5-14.5) % Immature Gran # (0.00-0.04) X 10*3/uL Eosinophils # (0.04-0.35) X 10*3/uL POC Glucose (mg/dL) 181 H 186 H 115 H (75-99) mg/dL 08/29/21 08/29/21 Range/Units 05:54 08:31 RBC 3.38 L (4.10-5.20) X 10*6/uL Hgb 9.0 L (12.0-15.0) g/dL Hct 30.8 L (37.2-46.3) % MCH 26.6 L (27.0-32.0) pg MCHC 29.2 L (32.0-37.0) g/dL RDW 15.4 H (11.5-14.5) % Immature Gran # 0.18 H (0.00-0.04) X 10*3/uL Eosinophils # 0.44 H (0.04-0.35) X 10*3/uL POC Glucose (mg/dL) 116 H (75-99) mg/dL Microbiology - Last 24 Hours (Table) 08/24/21 08:45 Blood Culture - Preliminary Blood No Growth after 96 hours 08/24/21 08:30 Blood Culture - Preliminary Blood No Growth after 96 hours
[2021-08-30 02:11] LABS: Glucose,Whole Blood 84 mg/dL (75-99)
[2021-08-30] MEDS: INSULIN ASPART (NovoLOG) 100 UNIT/ML VIAL SQ SCH ×5 (04:03→23:13)
[2021-08-30] MEDS: LEVOTHYROXINE 100 MCG TAB PO SCH (06:24)
[2021-08-30 07:11] LABS: African American GFR (CKD) 51 (>60 ml/min/1.73 sqM); Anion Gap 1 mmol/L; Blood Urea Nitrogen 38 mg/dL (7-17); Calcium 8.8 mg/dL (8.4-10.2); Carbon Dioxide 28 mmol/L (22-30); Chloride 113 mmol/L (98-107); Glucose 62 mg/dL (74-99); Non-African American GFR(CKD) 44 (>60 ml/min/1.73 sqM); Potassium 4.8 mmol/L (3.5-5.1); Sodium 142 mmol/L (137-145)
[2021-08-30 07:18] LABS: Glucose,Whole Blood 77 mg/dL (75-99)
[2021-08-30] MEDS: INSULN ASP PRT/INSULIN ASPART 100 UNIT/ML 10 ML VIAL SQ SCH ×2 (08:50→23:12)
[2021-08-30] MEDS: DOCUSATE 100 MG CAP PO SCH ×2 (08:51→21:09)
[2021-08-30] MEDS: FERROUS SULFATE 325 MG TAB PO SCH (08:51)
[2021-08-30] MEDS: SACUBITRIL/VALSARTAN 24 MG-26 MG TABLET PO SCH ×2 (08:51→21:09)
[2021-08-30] MEDS: FUROSEMIDE 10 MG/ML 4 ML VIAL IV SCH (08:51)
[2021-08-30] MEDS: PANTOPRAZOLE 40 MG TABLET PO SCH (08:51)
[2021-08-30] MEDS: IPRATROPIUM-ALBUTEROL 3 ML NEB INHALATION SCH ×3 (09:31→20:58)
[2021-08-30] MEDS: SYMBICORT 80-4.5 MCG INHALER INHALATION SCH ×2 (09:31→20:58)
[2021-08-30 11:35] LABS: Glucose,Whole Blood 70 mg/dL (75-99)
--- NOTE | 2021-08-30 14:37 | P.GSCN ---
History of Present Illness Consult date: 08/30/21 History of present illness: CHIEF COMPLAINT: Weakness Consult reason periumbilical hernia and abdominal pain HISTORY OF PRESENT ILLNESS: This is a 81-year-old female who presented to the hospital with complaints of weakness fall and development of pneumonia. She is currently under treatment for pneumonia. She was complaining of abdominal discomfort above the umbilicus. She reports that about 3 weeks ago she was in the ER and the hernia was reduced by the ER physician. Yesterday she had noted increase in abdominal pain today the pain is better and the hernia is not at this prominent. She is tolerating diet. She is having bowel movements. Patient denies any discoloration to the area as well. Patient seen and examined with Dr. Law PAST MEDICAL HISTORY: Heart Failure, COPD, Diabetes Mellitus, GERD/Reflux, Hyperlipidemia, Hypertension, Osteoarthritis (OA), Pneumonia, Skin Disorder, Thyroid Disorder PAST SURGICAL HISTORY: Breast Surgery, Cholecystectomy, Tonsillectomy MEDICATIONS: See list. ALLERGIES: See list. SOCIAL HISTORY: No illicit drug use. REVIEW OF SYSTEMS: CONSTITUTIONAL: Denies fever or chills. HEENT: Denies blurred vision, vision changes, or eye pain. Denies hemoptysis CARDIOVASCULAR: Denies chest pain or pressure. RESPIRATORY: No shortness of breath. GASTROINTESTINAL: See HPI for pertinent findings HEMATOLOGIC: Denies bleeding disorders. GENITOURINARY: Denies any blood in urine or increased urinary frequency. SKIN: Denies pruitis. Denies rash. PHYSICAL EXAM: VITAL SIGNS: Reviewed GENERAL: Well-developed in no acute distress. HEENT: No sclera icterus. Extraocular movements grossly intact. Moist buccal mucosa. Head is atraumatic, normocephalic. No nasal drainage. ABDOMEN: Soft. Obese. Nondistended. Minimal Tenderness with palpation proximal to the umbilicus. Palpable hernia. NEUROLOGIC: Alert and oriented. Cranial nerves II through XII grossly intact. LABORATORY DATA: WBC 7.51 hemoglobin 9.0 platelets 294 Sodium 142 potassium 4.8 creatinine 1.17 IMAGING: Abdominal ultrasound there is small fluid collection seen in the periumbilical space. Recommend computed tomography scan of the abdomen. ASSESSMENT: 1. Incarcerated ventral hernia 2. Pneumonia PLAN: -Patient will require ventral hernia repair when medically stable -Continue supportive care -Continue regular diet Thank you for this consultation Physician Finishing Area Operator note has been reviewed by physician. Signing provider agrees with the documented findings, assessment, and plan of care. Past Medical History Past Medical History: Heart Failure, COPD, Diabetes Mellitus, GERD/Reflux, Hyperlipidemia, Hypertension, Osteoarthritis (OA), Pneumonia, Skin Disorder, Thyroid Disorder Additional Past Medical History / Comment(s): IDDM type II, neuropathy L hand, bilateral lower leg venostasis/dermatitis/cellulitis/ulcers/edema, FALLS, weakness, arthritis bilateral knees, vertigo, hypothyroid History of Any Multi-Drug Resistant Organisms: None Reported Past Surgical History: Breast Surgery, Cholecystectomy, Tonsillectomy Additional Past Surgical History / Comment(s): Benign mass removed from neck, R breast benign biopsy, R eye laser surgery/pt cannot recall reason. Past Anesthesia/Blood Transfusion Reactions: No Reported Reaction Past Psychological History: No Psychological Hx Reported Additional Psychological History / Comment(s): Pt recently was at [facility] for rehab and was discharged from there on 07/05/21. She is to establish with [facility]. [facility] live nearby and assist pt with getting groceries, housework. Pt states she can no longer get out of her 2 story home d/t stairs at both doors. She lives on the first floor. She gets meals on wheels. She ambulates with a walker. She manages her own medications and sponge bathes and dresses herself. Smoking Status: Former smoker Past Alcohol Use History: None Reported Additional Past Alcohol Use History / Comment(s): Pt started smoking in 1959 and quit in 1999 Past Drug Use History: None Reported - Past Family History Father Family Medical History: Hypertension, Myocardial Infarction ([place]) Additional Family Medical History / Comment(s): X3 [place], Mother Family Medical History: Cancer Additional Family Medical History / Comment(s): DIES FROM COLON [place] Medications and Allergies Home Medications Medication Instructions Recorded Confirmed Type Levothyroxine Sodium 100 mcg PO DAILY 10/02/19 08/23/21 History Budesonide/Formoterol Fumarate 2 puff INHALATION RT-BID 05/11/21 08/23/21 History [Symbicort 80-4.5 Mcg Inhaler] Insulin Aspart Protam & Aspart 10 unit SQ HS #30 each 05/24/21 08/23/21 Rx [NovoLOG MIX 70-30 Flexpen] Insulin Aspart Protam & Aspart 28 unit SQ DAILY #30 each 05/24/21 08/23/21 Rx [NovoLOG MIX 70-30 Flexpen] Pantoprazole [Protonix] 40 mg PO AC-BRKFST #30 tab 05/24/21 08/23/21 Rx Acetaminophen Tab [Tylenol] 650 mg PO Q4H PRN 07/10/21 08/23/21 History Docusate [Colace] 100 mg PO BID 07/10/21 08/23/21 History Ferrous Sulfate [Iron (65 MG 325 mg PO DAILY 07/10/21 08/23/21 History Elemental)] Furosemide [Lasix] 20 mg PO BID 07/10/21 08/23/21 History Meclizine [Antivert] 12.5 mg PO Q6H PRN 07/10/21 08/23/21 History Midodrine [ProAmatine] 5 mg PO TID PRN 07/10/21 08/23/21 History Ondansetron [Zofran] 4 mg PO Q6H PRN 07/10/21 08/23/21 History Sacubitril/Valsartan [Entresto 24 1 tab PO BID 07/10/21 08/23/21 History mg-26 mg Tablet] carvediloL [Coreg] 3.125 mg PO BID 07/10/21 08/23/21 History Allergies Allergy/AdvReac Type Severity Reaction Status Date / Time Penicillins Allergy Rash/Hives Verified 08/23/21 17:21 Surgical - Exam Vital Signs Temp Pulse Resp BP Pulse Ox 97.7 F 76 18 156/91 97 08/23/21 16:54 08/23/21 16:54 08/23/21 16:54 08/23/21 16:54 08/23/21 16:54 Results - Labs 08/29/21 05:54 08/30/21 06:05 Abnormal Lab Results - Last 24 Hours (Table) 08/29/21 08/29/21 08/29/21 Range/Units 11:55 11:57 17:12 Chloride (98-107) mmol/L BUN (7-17) mg/dL Creatinine (0.52-1.04) mg/dL Glucose (74-99) mg/dL POC Glucose (mg/dL) 51 L 57 L 132 H (75-99) mg/dL 08/29/21 08/30/21 Range/Units 20:39 06:05 Chloride 113 H (98-107) mmol/L BUN 38 H (7-17) mg/dL Creatinine 1.17 H (0.52-1.04) mg/dL Glucose 62 L (74-99) mg/dL POC Glucose (mg/dL) 232 H (75-99) mg/dL Microbiology - Last 24 Hours (Table) 08/24/21 08:30 Blood Culture - Final Blood No Growth after 144 hours 08/24/21 08:45 Blood Culture - Final Blood No Growth after 144 hours Diabetes panel 08/30/21 Range/Units 06:05 Sodium 142 (137-145) mmol/L Potassium 4.8 (3.5-5.1) mmol/L Chloride 113 H (98-107) mmol/L Carbon Dioxide 28 (22-30) mmol/L BUN 38 H (7-17) mg/dL Creatinine 1.17 H (0.52-1.04) mg/dL Glucose 62 L (74-99) mg/dL Calcium 8.8 (8.4-10.2) mg/dL Calcium panel 08/30/21 Range/Units 06:05 Calcium 8.8 (8.4-10.2) mg/dL Pituitary panel 08/30/21 Range/Units 06:05 Sodium 142 (137-145) mmol/L Potassium 4.8 (3.5-5.1) mmol/L Chloride 113 H (98-107) mmol/L Carbon Dioxide 28 (22-30) mmol/L BUN 38 H (7-17) mg/dL Creatinine 1.17 H (0.52-1.04) mg/dL Glucose 62 L (74-99) mg/dL Calcium 8.8 (8.4-10.2) mg/dL Adrenal panel 08/30/21 Range/Units 06:05 Sodium 142 (137-145) mmol/L Potassium 4.8 (3.5-5.1) mmol/L Chloride 113 H (98-107) mmol/L Carbon Dioxide 28 (22-30) mmol/L BUN 38 H (7-17) mg/dL Creatinine 1.17 H (0.52-1.04) mg/dL Glucose 62 L (74-99) mg/dL Calcium 8.8 (8.4-10.2) mg/dL
[2021-08-30 16:55] LABS: Glucose,Whole Blood 100 mg/dL (75-99)
[2021-08-30] MEDS: carvediloL 3.125 MG TAB PO SCH (17:14)
[2021-08-30] MEDS: ACETAMINOPHEN TAB 325 MG TAB PO PRN (21:09)
[2021-08-30 22:21] LABS: Glucose,Whole Blood 170 mg/dL (75-99)
[2021-08-31 02:25] LABS: Glucose,Whole Blood 100 mg/dL (75-99)
[2021-08-31] MEDS: INSULIN ASPART (NovoLOG) 100 UNIT/ML VIAL SQ SCH ×3 (03:03→12:48)
[2021-08-31 03:05] VITALS: RESP 20
[2021-08-31] MEDS: LEVOTHYROXINE 100 MCG TAB PO SCH (05:40)
[2021-08-31 07:11] LABS: Glucose,Whole Blood 75 mg/dL (75-99)
[2021-08-31 07:36] VITALS: BP 189/63; TEMP 98.1
[2021-08-31] MEDS: carvediloL 3.125 MG TAB PO SCH (07:56)
[2021-08-31] MEDS: PANTOPRAZOLE 40 MG TABLET PO SCH (07:56)
[2021-08-31] MEDS: IPRATROPIUM-ALBUTEROL 3 ML NEB INHALATION SCH ×2 (08:17→13:01)
[2021-08-31] MEDS: SYMBICORT 80-4.5 MCG INHALER INHALATION SCH (08:18)
[2021-08-31 08:31] VITALS: PULSE 75
[2021-08-31] MEDS: SACUBITRIL/VALSARTAN 24 MG-26 MG TABLET PO SCH (09:12)
[2021-08-31] MEDS: FERROUS SULFATE 325 MG TAB PO SCH (09:12)
[2021-08-31] MEDS: FUROSEMIDE 10 MG/ML 4 ML VIAL IV SCH (09:12)
[2021-08-31] MEDS: DOCUSATE 100 MG CAP PO SCH (09:12)
[2021-08-31] MEDS: INSULN ASP PRT/INSULIN ASPART 100 UNIT/ML 10 ML VIAL SQ SCH (09:12)
--- NOTE | 2021-08-31 09:42 | P.PN ---
Progress Note - Text Progress Note Date: 08/31/21 Patient remains clinically unchanged. Her abdomen is soft. There is a small chronic stable ventral hernia. Patient will be discharged to rehab. She'll follow-up in the outpatient setting for possible repair of her hernia when she is clinically improved.
--- NOTE | 2021-08-31 12:22 | DS ---
DISCHARGE SUMMARY CHIEF COMPLAINT: Weakness, dehydration, failure to thrive and inability to ambulate. HISTORY OF PRESENT ILLNESS AND PHYSICAL EXAMINATION: Details of this lady's history and physical can be found in the initial workup. LABORATORY STUDIES: While she was in the hospital she had laboratory studies, details of which can be found in the laboratory section of her chart. COURSE IN THE HOSPITAL: After admission she was placed on bedrest, started on intravenous fluids, and she was rehydrated. She was given local wound care to her lower extremities. She was unable to ambulate and it was clear that she could not go home. Arrangements were made for her to go to [facility] on August 31. FINAL DIAGNOSIS: 1. General debility and failure to thrive with generalized weakness and inability to ambulate. 2. 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 3. History of hypertension. 4. Type 2 diabetes. 5. Bronchial pneumonia. OPERATIONS: None. CONSULTATIONS: None. She is improved. MMZAC / HEAVENLYN: [id number] /
[2021-08-31 12:26] LABS: Glucose,Whole Blood 38 mg/dL (75-99)
[2021-08-31 12:40] LABS: Glucose,Whole Blood 66 mg/dL (75-99)
[2021-08-31 13:05] LABS: Glucose,Whole Blood 67 mg/dL (75-99)
--- NOTE | 2021-09-01 15:50 | PN ---
PROGRESS NOTE DATE OF SERVICE: 08/30/2021 CHIEF COMPLAINT: General debility and failure to thrive with stasis dermatitis, ulcers and cellulitis. HISTORY OF PRESENT ILLNESS: This lady is doing reasonably well but still remains very weak. We are waiting for custodial placement. She may be going back to [facility]. PHYSICAL EXAMINATION: She remains very pale. She is weak and cannot get out of bed. Chest demonstrates rales at the bases. Her cardiac exam is normal. The abdomen is soft and non-tender. The lower extremities are still being dressed below the knees. IMPRESSION: 1. General debility and failure to thrive. 2. Generalized weakness and inability to ambulate. 3. Venostasis disease ulcers and dermatitis. PLAN: Continue with management until custodial bed becomes available. MMODL / IJN: [id number] /
== END 2021-08-31 13:00 | DRG 194 ==
LOC: EC 16:21 → 6NMEDSUR 08-24 08:07 → OBSVTOIN 08-27 10:11
PROVIDERS: ADMIT Family Medicine; ATTEND Family Medicine
DX: J18.0 Bronchopneumonia, unspecified organism (principal); E87.0 Hyperosmolality and hypernatremia; E87.2 Acidosis; J44.0 Chronic obstructive pulmonary disease with (acute) lower respiratory infection; L97.912 Non-pressure chronic ulcer of unspecified part of right lower leg with fat layer exposed; L97.922 Non-pressure chronic ulcer of unspecified part of left lower leg with fat layer exposed; L03.116 Cellulitis of left lower limb; L03.115 Cellulitis of right lower limb; K43.6 Other and unspecified ventral hernia with obstruction, without gangrene; I96 Gangrene, not elsewhere classified; Z20.822 Contact with and (suspected) exposure to COVID-19; E03.9 Hypothyroidism, unspecified; E11.622 Type 2 diabetes mellitus with other skin ulcer; E78.5 Hyperlipidemia, unspecified; E86.0 Dehydration; I11.0 Hypertensive heart disease with heart failure; I50.9 Heart failure, unspecified; I87.2 Venous insufficiency (chronic) (peripheral); I89.0 Lymphedema, not elsewhere classified; L89.152 Pressure ulcer of sacral region, stage 2; L30.9 Dermatitis, unspecified; E11.42 Type 2 diabetes mellitus with diabetic polyneuropathy; Z79.890 Hormone replacement therapy; L89.611 Pressure ulcer of right heel, stage 1; R29.6 Repeated falls; L98.492 Non-pressure chronic ulcer of skin of other sites with fat layer exposed; M17.0 Bilateral primary osteoarthritis of knee; R42 Dizziness and giddiness; K21.9 Gastro-esophageal reflux disease without esophagitis; M81.0 Age-related osteoporosis without current pathological fracture; R62.7 Adult failure to thrive; W01.0XXA Fall on same level from slipping, tripping and stumbling without subsequent striking against object, initial encounter; Z79.4 Long term (current) use of insulin; Z79.51 Long term (current) use of inhaled steroids; Z79.899 Other long term (current) drug therapy; Z80.0 Family history of malignant neoplasm of digestive organs; Z82.49 Family history of ischemic heart disease and other diseases of the circulatory system; Z87.891 Personal history of nicotine dependence; Z91.81 History of falling; Z90.49 Acquired absence of other specified parts of digestive tract; Z88.0 Allergy status to penicillin; Z86.19 Personal history of other infectious and parasitic diseases
CPT/HCPCS: 36415; 70450; 71045; 71046; 72125; 72170; 76705; 80048; 80053; 81001; 82550; 83735; 85025; 85610; 85730; 87040; 87635; 93005; 94640; 94760

== ENCOUNTER 2021-12-24 09:33 | Inpatient (IN) | payer MEDICARE, OTHER ==
--- NOTE | 2021-12-24 10:43 | XR ---
EXAMINATION TYPE: XR chest 2V DATE OF EXAM: 12/24/2021 COMPARISON: X-ray dated 08/25/2021 HISTORY: Chest pain TECHNIQUE: Frontal and lateral views of the chest are obtained. FINDINGS: Slightly increased cardiac transverse diameter. Slightly increased density of the right lung as ruthie red to the left lung, possibly due to technical factors. Grossly unremarkable lungs otherwise. No sizable pleural effusion or definite pneumothorax. Dense aor tic atherosclerotic calcifications. Degenerative changes of the thoracic spine. IMPRESSION: As above.
--- NOTE | 2021-12-24 10:47 | ED ---
General Adult HPI - General Chief complaint: Extremity Problem,Nontraumatic Stated complaint: edema, elevated blood pressure Time Seen by Provider: 12/24/21 09:50 Source: patient, EMS, RN notes reviewed, old records reviewed Mode of arrival: EMS Limitations: physical limitation - History of Present Illness Initial comments: This is an 81-year-old female who presents emergency Department complaining that she was unable to get up and walk today because her feet hurt. Patient states his been a chronic problem but the pain was much worse today and she was unable to stand and she lives alone so she came to the emergency department. Patient states the swelling in her legs is greater than normal. Patient states she did not take any of her blood pressure meds today. Patient denies any chest pain patient denies of the breathing first breath per patient denies any recent fever chills or cough per patient denies any abdominal pain patient was vomiting diarrhea. - Related Data Home Medications Medication Instructions Recorded Confirmed Levothyroxine Sodium 100 mcg PO DAILY 10/02/19 08/23/21 Budesonide/Formoterol Fumarate 2 puff INHALATION RT-BID 05/11/21 08/23/21 [Symbicort 80-4.5 Mcg Inhaler] Acetaminophen Tab [Tylenol] 650 mg PO Q4H PRN 07/10/21 08/23/21 Docusate [Colace] 100 mg PO BID 07/10/21 08/23/21 Ferrous Sulfate [Iron (65 MG 325 mg PO DAILY 07/10/21 08/23/21 Elemental)] Furosemide [Lasix] 20 mg PO BID 07/10/21 08/23/21 Meclizine [Antivert] 12.5 mg PO Q6H PRN 07/10/21 08/23/21 Midodrine [ProAmatine] 5 mg PO TID PRN 07/10/21 08/23/21 Ondansetron [Zofran] 4 mg PO Q6H PRN 07/10/21 08/23/21 Sacubitril/Valsartan [Entresto 24 1 tab PO BID 07/10/21 08/23/21 mg-26 mg Tablet] carvediloL [Coreg] 3.125 mg PO BID 07/10/21 08/23/21 Previous Rx's Medication Instructions Recorded Insulin Aspart Protam & Aspart 10 unit SQ HS #30 each 05/24/21 [NovoLOG MIX 70-30 Flexpen] Insulin Aspart Protam & Aspart 28 unit SQ DAILY #30 each 05/24/21 [NovoLOG MIX 70-30 Flexpen] Pantoprazole [Protonix] 40 mg PO AC-BRKFST #30 tab 05/24/21 Ipratropium-Albuterol Nebulize 3 ml INHALATION RT-TID 30 Days #90 08/31/21 [Duoneb 0.5 mg-3 mg/3 ml Soln] ml Allergies Allergy/AdvReac Type Severity Reaction Status Date / Time Penicillins Allergy Rash/Hives Verified 12/24/21 09:42 Review of Systems ROS Statement: Those systems with pertinent positive or pertinent negative responses have been documented in the HPI. ROS Other: All systems not noted in ROS Statement are negative. Past Medical History Past Medical History: Heart Failure, COPD, Diabetes Mellitus, GERD/Reflux, Hyperlipidemia, Hypertension, Osteoarthritis (OA), Pneumonia, Skin Disorder, Thyroid Disorder Additional Past Medical History / Comment(s): IDDM type II, neuropathy L hand, bilateral lower leg venostasis/dermatitis/cellulitis/ulcers/edema, FALLS, weakness, arthritis bilateral knees, vertigo, hypothyroid History of Any Multi-Drug Resistant Organisms: None Reported Past Surgical History: Breast Surgery, Cholecystectomy, Tonsillectomy Additional Past Surgical History / Comment(s): Benign mass removed from neck, R breast benign biopsy, R eye laser surgery/pt cannot recall reason. Past Anesthesia/Blood Transfusion Reactions: No Reported Reaction Past Psychological History: No Psychological Hx Reported Smoking Status: Former smoker Past Alcohol Use History: None Reported Past Drug Use History: None Reported - Past Family History Father Family Medical History: Hypertension, Myocardial Infarction ([place]) Additional Family Medical History / Comment(s): X3 [place], Mother Family Medical History: Cancer Additional Family Medical History / Comment(s): DIES FROM COLON [place] General Exam - General Exam Comments Initial Comments: GENERAL: Patient is well-developed and well-nourished. Patient is nontoxic and well- hydrated and is in mild distress. ENT: Neck is soft and supple. No significant lymphadenopathy is noted. Oropharynx is clear. Moist mucous membranes. Neck has full range of motion without eliciting any pain. EYES: The sclera were anicteric and conjunctiva were pink and moist. Extraocular movements were intact and pupils were equal round and reactive to light. Eyelids were unremarkable. PULMONARY: Unlabored respirations. Good breath sounds bilaterally. No audible rales rhonchi or wheezing was noted. CARDIOVASCULAR: There is a regular rate and rhythm without any murmurs gallops or rubs. ABDOMEN: Soft and nontender with normal bowel sounds. SKIN: Skin is clear with no lesions or rashes and otherwise unremarkable. NEUROLOGIC: Patient is alert and oriented x3. Cranial nerves II through XII are grossly intact. Motor and sensory are also intact. Normal speech, volume and content. Symmetrical smile. MUSCULOSKELETAL: Normal extremities with adequate strength and full range of motion. 2+ edema bilaterally patient states the left is greater than the right patient states this is normal. There is an area of erythema on the left anterior mitchell that the patient states is new. Patient's heels both have calluses and are very tender to touch. LYMPHATICS: No significant lymphadenopathy is noted PSYCHIATRIC: Normal psychiatric evaluation. Limitations: physical limitation Course Vital Signs 12/24/21 12/24/21 12/24/21 09:37 10:23 11:09 Temperature 97.6 F Pulse Rate 69 78 75 Respiratory 18 18 18 Rate Blood Pressure 182/67 176/75 151/54 O2 Sat by Pulse 95 95 95 Oximetry 12/24/21 12/24/21 12/24/21 11:11 13:00 14:16 Temperature Pulse Rate 72 63 66 Respiratory 18 18 18 Rate Blood Pressure 163/58 163/71 162/83 O2 Sat by Pulse 95 100 99 Oximetry Medical Decision Making - Medical Decision Making EKG shows sinus rhythm at 73 bpm NV interval is 164 QRS is 88 QT interval 43 QTC is 429. Patient's EKG shows no ST segment elevation or depression. Foot x-ray shows no definitive osteomyelitis. Chest x-ray shows no acute abnormality. I spoke with Dr. Fleming and he agreed to admit the patient admitted the patient remaining orders. - Lab Data Result diagrams: 12/24/21 11:08 12/24/21 10:20 Lab Results 12/24/21 12/24/21 12/24/21 Range/Units 10:20 10:20 10:20 WBC (3.8-10.6) k/uL RBC (3.80-5.40) m/uL Hgb (11.4-16.0) gm/dL Hct (34.0-46.0) % MCV (80.0-100.0) fL MCH (25.0-35.0) pg MCHC (31.0-37.0) g/dL RDW (11.5-15.5) % Plt Count (150-450) k/uL MPV Neutrophils % % Lymphocytes % % Monocytes % % Eosinophils % % Basophils % % Neutrophils # (1.3-7.7) k/uL Lymphocytes # (1.0-4.8) k/uL Monocytes # (0-1.0) k/uL Eosinophils # (0-0.7) k/uL Basophils # (0-0.2) k/uL Hypochromasia PT 10.5 (9.0-12.0) sec INR 1.0 (<1.2) APTT 19.7 L (22.0-30.0) sec Sodium 142 (137-145) mmol/L Potassium 4.6 (3.5-5.1) mmol/L Chloride 116 H (98-107) mmol/L Carbon Dioxide 18 L (22-30) mmol/L Anion Gap 8 mmol/L BUN 22 H (7-17) mg/dL Creatinine 1.23 H (0.52-1.04) mg/dL Est GFR (CKD-EPI)AfAm 48 (>60 ml/min/1.73 sqM) Est GFR (CKD-EPI)NonAf 41 (>60 ml/min/1.73 sqM) Glucose 178 H (74-99) mg/dL Plasma Lactic Acid Yvan (0.7-2.0) mmol/L Calcium 9.2 (8.4-10.2) mg/dL Magnesium 2.1 (1.6-2.3) mg/dL Total Bilirubin 0.5 (0.2-1.3) mg/dL AST 16 (14-36) U/L ALT 6 (4-34) U/L Alkaline Phosphatase 117 (38-126) U/L Troponin I 0.020 (0.000-0.034) ng/mL Total Protein 6.5 (6.3-8.2) g/dL Albumin 3.4 L (3.5-5.0) g/dL 12/24/21 12/24/21 Range/Units 10:20 11:08 WBC 6.7 (3.8-10.6) k/uL RBC 4.04 (3.80-5.40) m/uL Hgb 11.3 L (11.4-16.0) gm/dL Hct 37.7 (34.0-46.0) % MCV 93.2 (80.0-100.0) fL MCH 27.9 (25.0-35.0) pg MCHC 29.9 L (31.0-37.0) g/dL RDW 14.7 (11.5-15.5) % Plt Count 222 (150-450) k/uL MPV 8.6 Neutrophils % 69 % Lymphocytes % 18 % Monocytes % 7 % Eosinophils % 4 % Basophils % 1 % Neutrophils # 4.6 (1.3-7.7) k/uL Lymphocytes # 1.2 (1.0-4.8) k/uL Monocytes # 0.5 (0-1.0) k/uL Eosinophils # 0.3 (0-0.7) k/uL Basophils # 0.0 (0-0.2) k/uL Hypochromasia Marked PT (9.0-12.0) sec INR (<1.2) APTT (22.0-30.0) sec Sodium (137-145) mmol/L Potassium (3.5-5.1) mmol/L Chloride (98-107) mmol/L Carbon Dioxide (22-30) mmol/L Anion Gap mmol/L BUN (7-17) mg/dL Creatinine (0.52-1.04) mg/dL Est GFR (CKD-EPI)AfAm (>60 ml/min/1.73 sqM) Est GFR (CKD-EPI)NonAf (>60 ml/min/1.73 sqM) Glucose (74-99) mg/dL Plasma Lactic Acid Yavn 1.3 (0.7-2.0) mmol/L Calcium (8.4-10.2) mg/dL Magnesium (1.6-2.3) mg/dL Total Bilirubin (0.2-1.3) mg/dL AST (14-36) U/L ALT (4-34) U/L Alkaline Phosphatase (38-126) U/L Troponin I (0.000-0.034) ng/mL Total Protein (6.3-8.2) g/dL Albumin (3.5-5.0) g/dL Disposition Clinical Impression: Unable to ambulate, Bilateral leg pain Disposition: ADMITTED IP TO THIS [facility] Referrals: Faisal Fleming MD [Primary Care Provider] - 1-2 days Time of Disposition: 15:08
[2021-12-24] MEDS ORDERED: LABETALOL 5 MG/ML VIAL MDV IVP STA (10:50)
[2021-12-24 10:58] LABS: Albumin 3.4 g/dL (3.5-5.0); Calcium 9.2 mg/dL (8.4-10.2); Magnesium 2.1 mg/dL (1.6-2.3); Potassium 4.6 mmol/L (3.5-5.1); Prothrombin Time 10.5 sec (9.0-12.0); Total Bilirubin 0.5 mg/dL (0.2-1.3); Total Protein 6.5 g/dL (6.3-8.2)
[2021-12-24 11:24] LABS: Partial Thromboplastin Time 19.7 sec (22.0-30.0)
[2021-12-24 11:32] LABS: Basophils % (A) 1 %; Eosinophils # (A) 0.3 k/uL (0-0.7); Eosinophils % (A) 4 %; HCT 37.7 % (34.0-46.0); HGB 11.3 gm/dL (11.4-16.0); Hypochromasia Marked; Lymphocytes # (A) 1.2 k/uL (1.0-4.8); Lymphocytes % (A) 18 %; MCH 27.9 pg (25.0-35.0); MCHC 29.9 g/dL (31.0-37.0); MCV 93.2 fL (80.0-100.0); Mean Platelet Volume 8.6; Monocytes # (A) 0.5 k/uL (0-1.0); Monocytes % (A) 7 %; Neutrophils # (A) 4.6 k/uL (1.3-7.7); Neutrophils % (A) 69 %; Platelet Count 222 k/uL (150-450); RBC 4.04 m/uL (3.80-5.40); RDW 14.7 % (11.5-15.5); WBC 6.7 k/uL (3.8-10.6)
--- NOTE | 2021-12-24 11:56 | XR ---
Left foot Limited HISTORY: Pain, trauma 2 views the left foot Bone mineralization is reduced. There is soft tissue swelling present. Alignment and joint spaces are maintained. There is a plantar calcaneal spur. Some lucencies present within the soft tissues. There are vascular calcifications present. Some degenerative changes are present at the intertarsal joints . IMPRESSION: Correlate for cellulitis, difficult to exclude underlying abscess, osteomyelitis, correla te. No evident fracture or dislocation.
[2021-12-24] MEDS ORDERED: SODIUM CHLORIDE 0.9% 1,000 ML IV ONE (15:09)
[2021-12-24] MEDS: carvediloL 3.125 MG TAB PO SCH (17:21)
[2021-12-25] MEDS ORDERED: FUROSEMIDE 10 MG/ML 10 ML VIAL IV STA (04:16)
[2021-12-25] MEDS: carvediloL 3.125 MG TAB PO SCH ×3 (08:31→21:28)
[2021-12-25] MEDS ORDERED: FUROSEMIDE 10 MG/ML 4 ML VIAL IV SCH (09:00)
[2021-12-25] MEDS: hydrALAZINE HCL 50 MG TAB PO SCH ×2 (14:32→21:28)
[2021-12-25] MEDS: ALBUTEROL NEBULIZED 2.5 MG/3 ML INHALATION PRN ×2 (15:11→19:42)
[2021-12-25 17:38] LABS: Glucose,Whole Blood 175 mg/dL (75-99)
[2021-12-25] MEDS: FUROSEMIDE 20 MG TAB PO SCH (18:30)
[2021-12-25] MEDS: INSULN ASP PRT/INSULIN ASPART 100 UNIT/ML 10 ML VIAL SQ SCH (18:30)
[2021-12-25] MEDS: SYMBICORT 80-4.5 MCG INHALER INHALATION SCH (19:42)
[2021-12-25 21:18] LABS: Glucose,Whole Blood 132 mg/dL (75-99)
[2021-12-25] MEDS: SACUBITRIL/VALSARTAN 24 MG-26 MG TABLET PO SCH (21:28)
--- NOTE | 2021-12-25 22:06 | HP ---
HISTORY AND PHYSICAL CHIEF COMPLAINT: Frequent falling, general debility and weakness, and lower extremity edema with cellulitis and chronic ulcerations. HISTORY OF PRESENT ILLNESS: This is another admission for this 81-year-old female. She has been trying to live at home but has not been very successful. She is very sedentary and has had a significant problem with dependent edema, cellulitis and ulcers. She apparently fell again and was brought to the emergency room. She is more lethargic than usual and dyspneic, and it is felt that she is also in heart failure. REVIEW OF SYSTEMS: She denies any headaches, focal neurologic deficits or problems, chest pain, abdominal pain, nausea, etc. Past medical history, family history, and personal and social histories are otherwise essentially unremarkable. She does have a history of hypertension, hyperlipidemia, diabetes, hypothyroidism and renal failure. She is ALLERGIC TO PENICILLIN. Her medications can be found in her admitting and list. She does not smoke or drink. PHYSICAL EXAMINATION: Blood pressure is 214/96 with tachycardia of 85 beats per minute. Respirations are 38. She is afebrile. In general she appears to be chronically ill, pale and short of breath. Head, ears, eyes, nose, mouth and throat are normal. Chest demonstrates decreased breath sounds throughout and could not be examined posteriorly. Her cardiac exam demonstrates sinus tachycardia with no murmurs or extra sounds. Abdomen is soft and nontender. Extremities reveal her dependent edema, cellulitis and areas of ulcerations. There is an old necrotic ulcer on the bottom of the right heel. She has cellulitis on the anterior aspect of both lower legs. Neurologically, other than being slightly lethargic, she is intact. She is admitted to the hospital with the diagnoses: 1. Frequent falls. 2. Congestive heart failure. 3. Dependent edema with cellulitis and ulcers. 4. Failure to thrive and general debility. PLAN: 1. Bedrest. 2. IV fluids. 3. Control congestive heart failure. 4. Work on a discharge plan. MMODL / IJN: [id number] /
--- NOTE | 2021-12-25 22:10 | PN ---
PROGRESS NOTE DATE OF SERVICE: 12/25/2021 CHIEF COMPLAINT: Frequent falling, general debility and weakness, and heart failure. HISTORY OF PRESENT ILLNESS: This lady is still short of breath. She still seems a little bit more lethargic than usual. PHYSICAL EXAMINATION: She remains pale. Her chest is clear. Cardiac exam is unchanged. Abdomen is soft and nontender. Feet and ankles are still slightly edematous, and cellulitis on the anterior shins is about the same. IMPRESSION: 1. General debility and failure to thrive with frequent falling. 2. Congestive heart failure. 3. Dependent edema with stasis ulcers and cellulitis. PLAN: Continue with efforts to treat her fluid overload as well as her lower extremities. MMODL / IJN: [id number] /
[2021-12-26] MEDS: LEVOTHYROXINE 100 MCG TAB PO SCH (06:11)
[2021-12-26 06:58] LABS: Glucose,Whole Blood 148 mg/dL (75-99)
[2021-12-26] MEDS: SYMBICORT 80-4.5 MCG INHALER INHALATION SCH ×2 (08:22→19:48)
[2021-12-26] MEDS: ALBUTEROL NEBULIZED 2.5 MG/3 ML INHALATION PRN ×4 (08:22→19:49)
[2021-12-26] MEDS: PANTOPRAZOLE 40 MG TABLET PO SCH (09:21)
[2021-12-26] MEDS: hydrALAZINE HCL 50 MG TAB PO SCH ×3 (09:21→21:27)
[2021-12-26] MEDS: FUROSEMIDE 20 MG TAB PO SCH ×2 (09:21→17:30)
[2021-12-26] MEDS: DOCUSATE 100 MG CAP PO SCH (09:21)
[2021-12-26] MEDS: carvediloL 3.125 MG TAB PO SCH ×3 (09:21→20:45)
[2021-12-26] MEDS: INSULN ASP PRT/INSULIN ASPART 100 UNIT/ML 10 ML VIAL SQ SCH ×2 (09:22→17:29)
[2021-12-26] MEDS: SACUBITRIL/VALSARTAN 24 MG-26 MG TABLET PO SCH ×2 (09:23→21:27)
[2021-12-26 16:34] VITALS: BMI 38.9
[2021-12-26 17:09] LABS: Basophils % (A) 1 %; Eosinophils # (A) 0.2 k/uL (0-0.7); Eosinophils % (A) 4 %; HCT 34.7 % (34.0-46.0); HGB 10.6 gm/dL (11.4-16.0); Hypochromasia Marked; Lymphocytes # (A) 0.8 k/uL (1.0-4.8); Lymphocytes % (A) 14 %; MCH 28.9 pg (25.0-35.0); MCHC 30.7 g/dL (31.0-37.0); MCV 93.9 fL (80.0-100.0); Mean Platelet Volume 8.7; Monocytes # (A) 0.4 k/uL (0-1.0); Monocytes % (A) 7 %; Neutrophils # (A) 4.5 k/uL (1.3-7.7); Neutrophils % (A) 74 %; Platelet Count 171 k/uL (150-450); RBC 3.69 m/uL (3.80-5.40); RDW 14.6 % (11.5-15.5); WBC 6.1 k/uL (3.8-10.6)
[2021-12-26 17:19] LABS: ALT <6 U/L (4-34); AST 14 U/L (14-36); African American GFR (CKD) 34 (>60 ml/min/1.73 sqM); Albumin 2.6 g/dL (3.5-5.0); Alkaline Phosphatase 95 U/L (38-126); Anion Gap 5 mmol/L; Blood Urea Nitrogen 25 mg/dL (7-17); Calcium 8.5 mg/dL (8.4-10.2); Carbon Dioxide 26 mmol/L (22-30); Chloride 108 mmol/L (98-107); Globulin 2.7 g/dL; Glucose 180 mg/dL (74-99); Non-African American GFR(CKD) 30 (>60 ml/min/1.73 sqM); Potassium 4.5 mmol/L (3.5-5.1); Sodium 139 mmol/L (137-145); Total Bilirubin 0.5 mg/dL (0.2-1.3); Total Protein 5.3 g/dL (6.3-8.2)
--- NOTE | 2021-12-26 19:17 | PN ---
PROGRESS NOTE CHIEF COMPLAINT: Frequent falling and congestive heart failure. HISTORY OF PRESENT ILLNESS: This lady is doing better. She is breathing better. She remains awake and alert. PHYSICAL EXAMINATION: She remains pale. Chest demonstrates decreased breath sounds at bases. Cardiac exam is normal. Abdomen is soft. Extremities are unchanged. IMPRESSION: 1. Frequent falling. 2. Acute congestive heart failure with preserved ejection fraction. 3. Lower extremity edema with cellulitis and stasis ulcers. PLAN: Continue with diuresis and local wound care to the legs. MMODL / IJN: [id number] /
--- NOTE | 2021-12-26 21:21 | XR ---
EXAMINATION TYPE: XR chest 1V portable DATE OF EXAM: 12/26/2021 6:01 PM COMPARISON: Multiple radiographs, with the most recent on 12/24/2021 TECHNIQUE: XR chest 1V portable Frontal view of the chest. CLINICAL INDICATION:Female, 81 years old with history of chf; FINDINGS: Lungs/Pleura: Increased airspace opacities within the right lower lung. Pulmonary vascularity: Mild pulmonary vascular congestion. Heart/mediastinum: Cardiomediastinal silhouette is enlarged and stable. Musculoskeletal: No acute osseous pathology. IMPRESSION: 1. Increased from prior airspace opacities within the right lower lung correlate for pneumonia. 2. Similar cardiomegaly. 3. Mild pulmonary vascular congestion.
[2021-12-27] MEDS: LEVOTHYROXINE 100 MCG TAB PO SCH (05:32)
[2021-12-27 07:08] LABS: Glucose,Whole Blood 169 mg/dL (70-110)
[2021-12-27] MEDS: DOCUSATE 100 MG CAP PO SCH (07:10)
[2021-12-27] MEDS: FUROSEMIDE 20 MG TAB PO SCH ×2 (07:11→16:22)
[2021-12-27] MEDS: hydrALAZINE HCL 50 MG TAB PO SCH ×2 (07:11→16:22)
[2021-12-27] MEDS: PANTOPRAZOLE 40 MG TABLET PO SCH (07:11)
[2021-12-27] MEDS: SACUBITRIL/VALSARTAN 24 MG-26 MG TABLET PO SCH ×2 (07:11→21:30)
[2021-12-27] MEDS: carvediloL 3.125 MG TAB PO SCH ×2 (07:12→22:40)
[2021-12-27] MEDS: INSULN ASP PRT/INSULIN ASPART 100 UNIT/ML 10 ML VIAL SQ SCH ×2 (07:17→16:22)
[2021-12-27] MEDS: SYMBICORT 80-4.5 MCG INHALER INHALATION SCH ×2 (08:57→20:20)
[2021-12-27] MEDS ORDERED: metOLazone 2.5 MG TAB PO SCH (09:00)
[2021-12-27] MEDS: ACETAMINOPHEN TAB 325 MG TAB PO PRN ×2 (10:18→21:30)
[2021-12-27 11:19] LABS: Glucose,Whole Blood 105 mg/dL (70-110)
[2021-12-27 16:12] LABS: Glucose,Whole Blood 166 mg/dL (70-110)
--- NOTE | 2021-12-27 20:06 | PN ---
PROGRESS NOTE CHIEF COMPLAINT: Frequent falling, general debility and congestive heart failure. HISTORY OF PRESENT ILLNESS: This lady is doing a little bit better. Breathing is improved with her diuresis. She still has significant edema and cellulitis of the lower legs. PHYSICAL EXAMINATION: Chest demonstrates scattered rales toward the bases. Cardiac exam is normal. Abdomen is soft and protuberant. Extremities are less edematous. IMPRESSION: 1. Frequent falling due to general debility and weakness. 2. Acute congestive heart failure. 3. Lower extremity edema with stasis dermatitis, cellulitis and ulcers. PLAN: 1. Continue with current management for heart failure. 2. TSH. 3. Follow labs closely. 4. Discharge planning. MMODL / IJN: [id number] /
[2021-12-27 20:19] VITALS: RESP 16
[2021-12-27 20:35] LABS: Glucose,Whole Blood 119 mg/dL (70-110)
[2021-12-27] MEDS: hydrALAZINE HCL 25 MG TAB PO SCH (21:34)
[2021-12-28] MEDS: LEVOTHYROXINE 100 MCG TAB PO SCH (05:36)
[2021-12-28 06:54] VITALS: BP 149/65; PULSE 71; TEMP 98.5
[2021-12-28] MEDS: hydrALAZINE HCL 25 MG TAB PO SCH (06:55)
[2021-12-28] MEDS: DOCUSATE 100 MG CAP PO SCH (06:55)
[2021-12-28] MEDS: PANTOPRAZOLE 40 MG TABLET PO SCH (06:57)
[2021-12-28 06:58] LABS: Glucose,Whole Blood 121 mg/dL (70-110)
[2021-12-28] MEDS: SACUBITRIL/VALSARTAN 24 MG-26 MG TABLET PO SCH (06:59)
[2021-12-28] MEDS: INSULN ASP PRT/INSULIN ASPART 100 UNIT/ML 10 ML VIAL SQ SCH (07:08)
[2021-12-28] MEDS: SYMBICORT 80-4.5 MCG INHALER INHALATION SCH (08:54)
[2021-12-28] MEDS ORDERED: FUROSEMIDE 20 MG TAB PO SCH (09:00)
[2021-12-28 11:26] LABS: Glucose,Whole Blood 111 mg/dL (70-110)
--- NOTE | 2021-12-28 13:08 | DS ---
DISCHARGE SUMMARY CHIEF COMPLAINT: Lower extremity edema, cellulitis and shortness of breath. HISTORY OF PRESENT ILLNESS AND PHYSICAL EXAM: Details of this lady's history and physical can be found in the initial workup. LABORATORY STUDIES: While she was in the hospital she had laboratory studies, details of which can be found in the laboratory section of her chart. COURSE IN THE HOSPITAL: After admission she was placed on bedrest, started intravenous fluids and treated for congestive heart failure. She was diuresed and her breathing improved. She was given local wound care to the lower extremities is usual. She was stable enough and doing well, and it was felt she could go back to [facility] on December 28. FINAL DIAGNOSIS: 1. Acute congestive heart failure. 2. Chronic congestive heart failure, . 3. Dependent edema. 4. Cellulitis. 5. Stasis ulcers of the lower extremities. 6. General debility and failure to thrive. OPERATIONS: None. CONSULTATIONS: None. She is improved. MMZAC / HEAVENLYN: [id number] /
== END 2021-12-28 14:46 | DRG 291 ==
LOC: EC 09:33 → 4SSUR 15:09 → OBSVTOIN 12-27 12:22
PROVIDERS: ADMIT Family Medicine; ATTEND Family Medicine
DX: I11.0 Hypertensive heart disease with heart failure (principal); I50.33 Acute on chronic diastolic (congestive) heart failure; L03.115 Cellulitis of right lower limb; L03.116 Cellulitis of left lower limb; L97.419 Non-pressure chronic ulcer of right heel and midfoot with unspecified severity; Z87.01 Personal history of pneumonia (recurrent); E03.9 Hypothyroidism, unspecified; I87.8 Other specified disorders of veins; E11.9 Type 2 diabetes mellitus without complications; L30.9 Dermatitis, unspecified; E78.5 Hyperlipidemia, unspecified; I87.2 Venous insufficiency (chronic) (peripheral); R42 Dizziness and giddiness; J44.9 Chronic obstructive pulmonary disease, unspecified; M17.0 Bilateral primary osteoarthritis of knee; R29.6 Repeated falls; R62.7 Adult failure to thrive; Z72.3 Lack of physical exercise; Z79.4 Long term (current) use of insulin; Z79.51 Long term (current) use of inhaled steroids; Z79.890 Hormone replacement therapy; Z80.0 Family history of malignant neoplasm of digestive organs; Z82.49 Family history of ischemic heart disease and other diseases of the circulatory system; Z87.891 Personal history of nicotine dependence; Z90.49 Acquired absence of other specified parts of digestive tract
CPT/HCPCS: 36415; 71045; 71046; 80053; 83605; 83735; 83880; 84443; 84484; 85025; 85610; 85730; 87040; 87635; 93005; 94640; 96374; 96375; 96376; 99284

== ENCOUNTER 2022-06-07 12:11 | Inpatient (IN) | payer MEDICARE, OTHER ==
--- NOTE | 2022-06-07 12:30 | ED ---
General Adult HPI - General Stated complaint: Weakness Time Seen by Provider: 06/07/22 12:13 Source: patient, EMS, RN notes reviewed Mode of arrival: EMS Limitations: no limitations - History of Present Illness Initial comments: Patient is a pleasant 81-year-old female presenting to the emergency department with concerns for general weakness. Patient states symptoms just started today. Patient states she normally is able to move around her place with her walker however when the visiting nurse was there today she was too weak to do that. Patient states she was getting around fine yesterday. No isolated area of weakness. No confusion. Patient does have a visiting nurse for wound care. Patient does have wounds on her buttocks and bilateral legs. Patient does not feel confused. - Related Data Home Medications Medication Instructions Recorded Confirmed Levothyroxine Sodium 100 mcg PO DAILY 10/02/19 12/24/21 Budesonide/Formoterol Fumarate 2 puff INHALATION RT-BID 05/11/21 12/24/21 [Symbicort 80-4.5 Mcg Inhaler] Docusate [Colace] 200 mg PO DAILY 07/10/21 12/24/21 Furosemide [Lasix] 20 mg PO BID 07/10/21 12/24/21 Sacubitril/Valsartan [Entresto 24 1 tab PO BID 07/10/21 12/24/21 mg-26 mg Tablet] carvediloL [Coreg] 3.125 mg PO BID 07/10/21 12/24/21 Insulin Aspart Prot/Insuln Asp 10 unit SQ AC-BID 12/24/21 12/24/21 [NovoLOG MIX 70-30 Flexpen] Pantoprazole [Protonix] 40 mg PO DAILY 12/24/21 12/24/21 Allergies Allergy/AdvReac Type Severity Reaction Status Date / Time Penicillins Allergy Rash/Hives Verified 06/07/22 12:43 Review of Systems ROS Statement: Those systems with pertinent positive or pertinent negative responses have been documented in the HPI. ROS Other: All systems not noted in ROS Statement are negative. Constitutional: Denies: fever Eyes: Denies: eye pain ENT: Denies: ear pain Respiratory: Denies: cough Cardiovascular: Denies: chest pain Endocrine: Denies: fatigue Gastrointestinal: Denies: abdominal pain, vomiting Genitourinary: Denies: dysuria Musculoskeletal: Denies: back pain Skin: Reports: as per HPI Neurological: Reports: as per HPI Past Medical History Past Medical History: Heart Failure, COPD, Diabetes Mellitus, GERD/Reflux, Hyperlipidemia, Hypertension, Osteoarthritis (OA), Pneumonia, Skin Disorder, Thyroid Disorder Additional Past Medical History / Comment(s): IDDM type II, neuropathy L hand, bilateral lower leg venostasis/dermatitis/cellulitis/ulcers/edema, FALLS, weakness, arthritis bilateral knees, vertigo, hypothyroid History of Any Multi-Drug Resistant Organisms: None Reported Past Surgical History: Breast Surgery, Cholecystectomy, Tonsillectomy Additional Past Surgical History / Comment(s): Benign mass removed from neck, R breast benign biopsy, R eye laser surgery/pt cannot recall reason. Past Anesthesia/Blood Transfusion Reactions: No Reported Reaction Past Psychological History: No Psychological Hx Reported Additional Psychological History / Comment(s): [Pt recently was at [facility] for rehab and was discharged from there on 07/05/21. She is to establish with [facility]idential home care. Her [facility] and [facility] live nearby and assist pt with getting groceries, housework. Pt states she can no longer get out of her 2 story home d/t stairs at both doors. She lives on the first floor. She gets meals on wheels. She ambulates with a walker. She manages her own medications and sponge bathes and dresses herself.] Smoking Status: Former smoker Past Alcohol Use History: None Reported Additional Past Alcohol Use History / Comment(s): Pt started smoking in 1959 and quit in 1999 Past Drug Use History: None Reported - Past Family History Father Family Medical History: Hypertension, Myocardial Infarction ([place]) Additional Family Medical History / Comment(s): X3 [place], Mother Family Medical History: Cancer Additional Family Medical History / Comment(s): DIES FROM COLON [place] General Exam Limitations: no limitations General appearance: alert, in no apparent distress Head exam: Present: atraumatic Eye exam: Present: normal appearance, PERRL, EOMI ENT exam: Present: normal oropharynx Neck exam: Present: normal inspection. Absent: tenderness, meningismus Respiratory exam: Present: normal lung sounds bilaterally Cardiovascular Exam: Present: regular rate, normal rhythm GI/Abdominal exam: Present: soft. Absent: tenderness Neurological exam: Present: alert, oriented X3, CN II-XII intact Expanded Neurological exam: Present: protecting the airway Patient oriented to: Present: person, place, time Speech: Present: fluid speech Cranial nerves: EOM's Intact: Normal Motor strength exam: RUE: 5, LUE: 5, RLE: 2/1, LLE: 2/1 Eye Response: (4) open spontaneously Motor Response: (6) obeys commands Verbal Response: (5) oriented Psychiatric exam: Present: normal affect, normal mood Skin exam: Present: rash (Inguinal fungal rash), other (Stage II ulcers bilateral legs and buttocks.) Course Vital Signs 06/07/22 06/07/22 06/07/22 12:15 13:41 13:50 Temperature 97.4 F L 97.5 F L Pulse Rate 60 59 L Respiratory 18 18 Rate Blood Pressure 139/60 84/45 O2 Sat by Pulse 97 93 L Oximetry 06/07/22 14:38 Temperature Pulse Rate 58 L Respiratory 18 Rate Blood Pressure 84/50 O2 Sat by Pulse 98 Oximetry EKG Findings - EKG Results: EKG: interpreted by ERMD, sinus rhythm, normal axis, normal QRS, normal ST/T EKG shows: bradycardia Medical Decision Making - Medical Decision Making Patient reevaluated. Blood pressure has improved to 3 L of fluid. Patient updated. Dr. Fleming has been paged for admission of his patient. - Lab Data Result diagrams: 06/07/22 12:50 06/07/22 12:58 Lab Results 06/07/22 06/07/22 06/07/22 Range/Units 12:50 12:58 12:58 WBC 6.1 (3.8-10.6) k/uL RBC 3.36 L (3.80-5.40) m/uL Hgb 9.8 L (11.4-16.0) gm/dL Hct 30.4 L (34.0-46.0) % MCV 90.3 (80.0-100.0) fL MCH 29.1 (25.0-35.0) pg MCHC 32.2 (31.0-37.0) g/dL RDW 14.6 (11.5-15.5) % Plt Count (150-450) k/uL MPV 9.7 Neutrophils % 71 % Lymphocytes % 14 % Monocytes % 8 % Eosinophils % 4 % Basophils % 1 % Neutrophils # 4.3 (1.3-7.7) k/uL Lymphocytes # 0.8 L (1.0-4.8) k/uL Monocytes # 0.5 (0-1.0) k/uL Eosinophils # 0.3 (0-0.7) k/uL Basophils # 0.1 (0-0.2) k/uL Manual Slide Review Performed Hypochromasia Marked Poikilocytosis (manual Present Crenated Cell Present Sodium 138 (137-145) mmol/L Potassium 4.6 (3.5-5.1) mmol/L Chloride 111 H (98-107) mmol/L Carbon Dioxide 18 L (22-30) mmol/L Anion Gap 9 mmol/L BUN 48 H (7-17) mg/dL Creatinine 1.75 H (0.52-1.04) mg/dL Est GFR (CKD-EPI)AfAm 31 (>60 ml/min/1.73 sqM) Est GFR (CKD-EPI)NonAf 27 (>60 ml/min/1.73 sqM) Glucose 147 H (74-99) mg/dL POC Glucose (mg/dL) (70-110) mg/dL POC Glu Mysql Dba ID Plasma Lactic Acid Yvan 1.2 (0.7-2.0) mmol/L Calcium 8.8 (8.4-10.2) mg/dL Total Bilirubin 0.4 (0.2-1.3) mg/dL AST 22 (14-36) U/L ALT 9 (4-34) U/L Alkaline Phosphatase 128 H (38-126) U/L Troponin I (0.000-0.034) ng/mL Total Protein 6.3 (6.3-8.2) g/dL Albumin 3.3 L (3.5-5.0) g/dL Urine Color Urine Appearance (Clear) Urine pH (5.0-8.0) Ur Specific [place] (1.001-1.035) Urine Protein (Negative) Urine Glucose (UA) (Negative) Urine Ketones (Negative) Urine Blood (Negative) Urine Nitrite (Negative) Urine Bilirubin (Negative) Urine Urobilinogen (<2.0) mg/dL Ur Leukocyte Esterase (Negative) Urine RBC (0-5) /hpf Urine WBC (0-5) /hpf Ur Squamous Epith Cells (0-4) /hpf Urine Bacteria (None) /hpf Hyaline Casts (0-2) /lpf Urine Mucus (None) /hpf 06/07/22 06/07/22 06/07/22 Range/Units 12:58 13:14 13:50 WBC (3.8-10.6) k/uL RBC (3.80-5.40) m/uL Hgb (11.4-16.0) gm/dL Hct (34.0-46.0) % MCV (80.0-100.0) fL MCH (25.0-35.0) pg MCHC (31.0-37.0) g/dL RDW (11.5-15.5) % Plt Count (150-450) k/uL MPV Neutrophils % % Lymphocytes % % Monocytes % % Eosinophils % % Basophils % % Neutrophils # (1.3-7.7) k/uL Lymphocytes # (1.0-4.8) k/uL Monocytes # (0-1.0) k/uL Eosinophils # (0-0.7) k/uL Basophils # (0-0.2) k/uL Manual Slide Review Hypochromasia Poikilocytosis (manual Crenated Cell Sodium (137-145) mmol/L Potassium (3.5-5.1) mmol/L Chloride (98-107) mmol/L Carbon Dioxide (22-30) mmol/L Anion Gap mmol/L BUN (7-17) mg/dL Creatinine (0.52-1.04) mg/dL Est GFR (CKD-EPI)AfAm (>60 ml/min/1.73 sqM) Est GFR (CKD-EPI)NonAf (>60 ml/min/1.73 sqM) Glucose (74-99) mg/dL POC Glucose (mg/dL) 151 H (70-110) mg/dL POC Glu Mysql Dba ID Zenaida Santoyo Plasma Lactic Acid Yvan (0.7-2.0) mmol/L Calcium (8.4-10.2) mg/dL Total Bilirubin (0.2-1.3) mg/dL AST (14-36) U/L ALT (4-34) U/L Alkaline Phosphatase (38-126) U/L Troponin I <0.012 (0.000-0.034) ng/mL Total Protein (6.3-8.2) g/dL Albumin (3.5-5.0) g/dL Urine Color Yellow Urine Appearance Cloudy H (Clear) Urine pH 5.0 (5.0-8.0) Ur Specific [place] 1.020 (1.001-1.035) Urine Protein Trace H (Negative) Urine Glucose (UA) Negative (Negative) Urine Ketones Negative (Negative) Urine Blood Negative (Negative) Urine Nitrite Negative (Negative) Urine Bilirubin Negative (Negative) Urine Urobilinogen 2.0 (<2.0) mg/dL Ur Leukocyte Esterase Negative (Negative) Urine RBC 4 (0-5) /hpf Urine WBC 1 (0-5) /hpf Ur Squamous Epith Cells 2 (0-4) /hpf Urine Bacteria Rare H (None) /hpf Hyaline Casts 35 H (0-2) /lpf Urine Mucus Rare H (None) /hpf - Radiology Data Interpreted by me: Chest x-ray shows some central interstitial prominence Critical Care Time Critical Care Time: Yes Total Critical Care Time: 34 Disposition Clinical Impression: Hypotension, Dehydration Disposition: ADMITTED IP TO THIS HOSP Condition: Serious Is patient prescribed a controlled substance at d/c from ED?: No Referrals: Faisal Fleming MD [Primary Care Provider] - 1-2 days Time of Disposition: 15:34
[2022-06-07 13:10] LABS: Basophils # (A) 0.1 k/uL (0-0.2); Basophils % (A) 1 %; Eosinophils # (A) 0.3 k/uL (0-0.7); Eosinophils % (A) 4 %; HCT 30.4 % (34.0-46.0); HGB 9.8 gm/dL (11.4-16.0); Hypochromasia Marked; Lymphocytes # (A) 0.8 k/uL (1.0-4.8); Lymphocytes % (A) 14 %; MCH 29.1 pg (25.0-35.0); MCHC 32.2 g/dL (31.0-37.0); MCV 90.3 fL (80.0-100.0); Mean Platelet Volume 9.7; Monocytes # (A) 0.5 k/uL (0-1.0); Monocytes % (A) 8 %; Neutrophils # (A) 4.3 k/uL (1.3-7.7); Neutrophils % (A) 71 %; RBC 3.36 m/uL (3.80-5.40); RDW 14.6 % (11.5-15.5); WBC 6.1 k/uL (3.8-10.6)
[2022-06-07 13:21] LABS: Albumin 3.3 g/dL (3.5-5.0); Calcium 8.8 mg/dL (8.4-10.2); Potassium 4.6 mmol/L (3.5-5.1); Total Bilirubin 0.4 mg/dL (0.2-1.3); Total Protein 6.3 g/dL (6.3-8.2)
[2022-06-07 13:33] LABS: Appearance,Urine Cloudy (Clear); Bacteria,Urine Rare /hpf; Bilirubin,Urine Negative (Negative); Blood,Urine Negative (Negative); Color,Urine Yellow; Glucose,Urine (UA) Negative (Negative); Hyaline Casts,Urine 35 /lpf (0-2); Ketones,Urine Negative (Negative); Leukocyte Esterase,Urine Negative (Negative); Mucus,Urine Rare /hpf; Nitrite,Urine Negative (Negative); Protein,Urine Trace (Negative); RBC,Urine 4 /hpf (0-5); Squamous Epithelial Cell,Urine 2 /hpf (0-4); WBC,Urine 1 /hpf (0-5)
[2022-06-07] MEDS ORDERED: SODIUM CHLORIDE 0.9% 1,000 ML IV STA ×2 (13:37→13:53)
[2022-06-07 14:02] LABS: Glucose,Whole Blood 151 mg/dL (70-110)
--- NOTE | 2022-06-07 14:36 | XR ---
EXAMINATION TYPE: XR chest 2V DATE OF EXAM: 06/07/2022 COMPARISON: 12/26/2021 HISTORY: 81-year-old female with weakness and shortness of breath TECHNIQUE: Frontal and lateral views FINDINGS: Leftward patient rotation normal cardiothymic mediastinal contours. Heart upper limits of normal in s ize. Central interstitial prominence and peribronchial cuffing . Suspect prominent epicardial fat pad at the apex of the heart. No pleural effusion. Loss of the subacromial space on the right compatible chronic full-thickness rotator cuff tear. IMPRESSION: Rotated exam. Central interstitial prominence and peribronchial cuffing. Correlate for bronchitis or asthma.
[2022-06-07 14:39] LABS: Crenated RBC Present; Poikilocytosis (M) Present
[2022-06-07] MEDS ORDERED: NALOXONE 0.4 MG/ML 1 ML VIAL IV PRN (15:35)
[2022-06-07] MEDS: SODIUM CHLORIDE 0.9% 1,000 ML IV SCH ×2 (15:45→17:51)
--- NOTE | 2022-06-07 16:47 | CT ---
EXAMINATION TYPE: CT brain wo con DATE OF EXAM: 06/07/2022 COMPARISON: 08/23/2021 HISTORY: ams CT DLP: 1170.4 mGycm Automated exposure control for dose reduction was used. Images obtained of the brain with no contrast. There is cerebral cortical atrophy. There is no mass effect or midline shift. No sign of intracranial hemorrhage. There are some mild hypodensity in the periventricular white matter. Calvarium is intact . IMPRESSION: Cerebral atrophy and chronic small vessel ischemia. No acute intracranial abnormality. No significant change.
[2022-06-07 17:50] LABS: Glucose,Whole Blood 125 mg/dL (70-110)
[2022-06-07] MEDS ORDERED: DEXTROSE 50% SYRINGE 50 ML IVP PRN ×2 (18:28)
--- NOTE | 2022-06-07 18:56 | P.HPIM ---
History of Present Illness This is a pleasant 81 years old female with multiple medical problems as below including diabetes mellitus and heart failure. She was in the hospital a few months ago for bilateral lower extremity weakness and bilateral lower extremity ulceration with edema. Pres[facility] today from jail. Patient lying in bed very weak very lethargic, very pale looking. Not tachypneic. Patient fully awake and oriented, she is oriented to time place and person. She has insight into her problems. Patient states that she cannot stand up and feels very weak. Patient has loss of appetite over the last 3-4 days she was drinking well but she was located in the foot for the last 3-4 days, she was not feeling hungry. Patient also been complaining of from diarrhea. She has about 3-4 bowel movements a day for the last 3-4 days. But no abdominal pain. Review of Systems Review of systems -CONSTITUTIONAL: No fever, feels very weak HEENT: No recent visual problems or hearing problems. Denied any sore throat. CARDIOVASCULAR: No orthopnea, PND, no palpitations, no syncope. PULMONARY: No shortness of breath, no cough, no hemoptysis. GASTROINTESTINAL: no vomiting, no abdominal pain. Normoactive bowel sounds. NEUROLOGICAL: No headaches, no weakness, no numbness. HEMATOLOGICAL: Denies any bleeding or petechiae. GENITOURINARY: Denies any burning micturition, frequency, or urgency. MUSCULOSKELETAL/RHEUMATOLOGICAL: Denies any joint pain, swelling, or any muscle pain. ENDOCRINE: Denies any polyuria or polydipsia. Past Medical History Past Medical History: Heart Failure, COPD, Diabetes Mellitus, GERD/Reflux, Hyperlipidemia, Hypertension, Osteoarthritis (OA), Pneumonia, Skin Disorder, Thyroid Disorder Additional Past Medical History / Comment(s): IDDM type II, neuropathy L hand, bilateral lower leg venostasis/dermatitis/cellulitis/ulcers/edema, FALLS, weakness, arthritis bilateral knees, vertigo, hypothyroid History of Any Multi-Drug Resistant Organisms: None Reported Past Surgical History: Breast Surgery, Cholecystectomy, Tonsillectomy Additional Past Surgical History / Comment(s): Benign mass removed from neck, R breast benign biopsy, R eye laser surgery/pt cannot recall reason. Past Anesthesia/Blood Transfusion Reactions: No Reported Reaction Past Psychological History: No Psychological Hx Reported Additional Psychological History / Comment(s): [Pt recently was at [facility] for rehab and was discharged from there on 07/05/21. She is to establish with [facility]idential home [facility]. Her rosalba and granddez live nearby and assist pt with getting groceries, housework. Pt states she can no longer get out of her 2 story home d/t stairs at both doors. She lives on the first floor. She gets meals on wheels. She ambulates with a walker. She manages her own medications and sponge bathes and dresses herself.] Smoking Status: Former smoker Past Alcohol Use History: None Reported Additional Past Alcohol Use History / Comment(s): Pt started smoking in 1958 and quit in 1999 Past Drug Use History: None Reported - Past Family History Father Family Medical History: Hypertension, Myocardial Infarction ([place]) Additional Family Medical History / Comment(s): X3 [place], Mother Family Medical History: Cancer Additional Family Medical History / Comment(s): DIES FROM COLON [place] Medications and Allergies Home Medications Medication Instructions Recorded Confirmed Type Levothyroxine Sodium 100 mcg PO DAILY 10/02/19 06/07/22 History Sacubitril/Valsartan [Entresto 24 1 tab PO BID 07/10/21 06/07/22 History mg-26 mg Tablet] Insulin Aspart Prot/Insuln Asp 28 unit SQ DAILY 12/24/21 06/07/22 History [NovoLOG MIX 70-30 Flexpen] Acetaminophen [Tylenol Arthritis] 650 mg PO TID PRN 06/07/22 06/07/22 History Atorvastatin Calcium 40 mg PO HS 06/07/22 06/07/22 History Fluticasone/Vilanterol [Breo 2 puff INHALATION RT-BID 06/07/22 06/07/22 History Ellipta 100-25 Mcg Inhaler] Furosemide [Lasix] 40 mg PO DAILY 06/07/22 06/07/22 History Insulin Aspart Prot/Insuln Asp 10 unit SQ HS 06/07/22 06/07/22 History [Novolog Mix 70-30 Flexpen] amLODIPine [Norvasc] 5 mg PO DAILY 06/07/22 06/07/22 History carvediloL [Coreg] 6.25 mg PO BID 06/07/22 06/07/22 History Allergies Allergy/AdvReac Type Severity Reaction Status Date / Time Penicillins Allergy Rash/Hives Verified 06/07/22 17:12 Physical Exam Vitals: Vital Signs Temp Pulse Resp BP Pulse Ox 06/07/22 15:37 61 20 90/34 96 06/07/22 14:38 58 L 18 84/50 98 06/07/22 13:50 97.5 F L 06/07/22 13:41 59 L 18 84/45 93 L 06/07/22 12:15 97.4 F L 60 18 139/60 97 Intake and Output 06/07/22 06/07/22 06/07/22 06:59 14:59 22:59 Output Total 250 Balance -250 Output: Urine 250 Uretheral (Zhang) 250 Other: Weight 103.419 kg -GENERAL: The patient is alert and oriented x3, not in any acute distress. Obese. Very weak and lethargic HEENT: Pupils are round and equally reacting to light. EOMI. No scleral icterus. No conjunctival pallor. Normocephalic, atraumatic. No pharyngeal erythema. No thyromegaly. CARDIOVASCULAR: S1 and S2 present. No murmurs, rubs, or gallops. PULMONARY: Chest is clear to auscultation, no wheezing or crackles. ABDOMEN: Soft, nontender, nondistended, normoactive bowel sounds. No palpable organomegaly. -MUSCULOSKELETAL: No joint swelling or deformity. Sacral pressure ulcer -EXTREMITIES: No cyanosis, clubbing, or pedal edema. Monitor liver extremity ulcers with surrounding pinkish discoloration, with bilateral leg swelling, no overt cellulitis NEUROLOGICAL: Gross neurological examination did not reveal any focal deficits. SKIN: No rashes. no petechiae. Results CBC & Chem 7: 06/07/22 12:50 06/07/22 12:58 Labs: Abnormal Lab Results - Last 24 Hours (Table) 06/07/22 06/07/22 06/07/22 Range/Units 12:50 12:58 13:14 RBC 3.36 L (3.80-5.40) m/uL Hgb 9.8 L (11.4-16.0) gm/dL Hct 30.4 L (34.0-46.0) % Lymphocytes # 0.8 L (1.0-4.8) k/uL Chloride 111 H (98-107) mmol/L Carbon Dioxide 18 L (22-30) mmol/L BUN 48 H (7-17) mg/dL Creatinine 1.75 H (0.52-1.04) mg/dL Glucose 147 H (74-99) mg/dL POC Glucose (mg/dL) (70-110) mg/dL Alkaline Phosphatase 128 H (38-126) U/L Albumin 3.3 L (3.5-5.0) g/dL Urine Appearance Cloudy H (Clear) Urine Protein Trace H (Negative) Urine Bacteria Rare H (None) /hpf Hyaline Casts 35 H (0-2) /lpf Urine Mucus Rare H (None) /hpf 06/07/22 Range/Units 13:50 RBC (3.80-5.40) m/uL Hgb (11.4-16.0) gm/dL Hct (34.0-46.0) % Lymphocytes # (1.0-4.8) k/uL Chloride (98-107) mmol/L Carbon Dioxide (22-30) mmol/L BUN (7-17) mg/dL Creatinine (0.52-1.04) mg/dL Glucose (74-99) mg/dL POC Glucose (mg/dL) 151 H (70-110) mg/dL Alkaline Phosphatase (38-126) U/L Albumin (3.5-5.0) g/dL Urine Appearance (Clear) Urine Protein (Negative) Urine Bacteria (None) /hpf Hyaline Casts (0-2) /lpf Urine Mucus (None) /hpf Assessment and Plan Assessment: Diarrhea, possible gastroenteritis versus reactive bowel movement Hypovolemia with hypotension, present on admission. Patient has history of hypertension prior utilization Multiple Bilateral lower leg ulcers with surrounding edema and discoloration. less likely cellulitis of the lower extremities Lower back sacral pressure ulcer chronic dependent edema Worsening chronic kidney disease, stage III and possible early stage IV Chronic stasis ulcers Chronic heart failureChronic anemia COPD without exacerbation Diabetes mellitus with hyperglycemia History of GERD Hyperlipidemia History of osteoarthritis Hypothyroidism Morbidly obese Plan: Continue with IV hydration hold blood pressure medication Continue with insulin check Check C. diff Infectious disease team consult Consult nephrology team for worsening kidney function, GFR is 27 on admission Patient looks very pale. monitor hemoglobin hemoglobin closely. Check occult blood in stool. Anemia workup Labs and medication were reviewed.. Continue same treatment. Continue with symptomatic treatment. Resume home medication. Monitor lytes and vitals. DVT and GI prophylaxis. Further recommendations as per clinical course of the patient DVT prophylaxis: Subcutaneous heparin GI Prophylaxis: Ppi PT/OT: Pending Prognosis is guarded
[2022-06-07 19:30] LABS: HCT 28.2 % (34.0-46.0); HGB 8.8 gm/dL (11.4-16.0); Hypochromasia Marked; MCH 28.8 pg (25.0-35.0); MCV 92.8 fL (80.0-100.0); Mean Platelet Volume 7.9; Platelet Count 230 k/uL (150-450); RBC 3.04 m/uL (3.80-5.40); RDW 14.6 % (11.5-15.5); WBC 5.7 k/uL (3.8-10.6)
[2022-06-07] MEDS: PANTOPRAZOLE 40 MG/10 ML VIAL IVP SCH (19:46)
[2022-06-07] MEDS: ATORVASTATIN 40 MG TAB PO SCH (19:47)
[2022-06-07 20:22] LABS: Glucose,Whole Blood 199 mg/dL (70-110)
[2022-06-07] MEDS: INSULIN ASPART (NovoLOG) 100 UNIT/ML VIAL SQ SCH (21:02)
[2022-06-07 23:09] LABS: % Iron Saturation 9.74 (12.00-45.00); Ferritin 75.7 ng/mL (10.0-291.0)
[2022-06-08 00:35] LABS: ABG Base Excess -7.3 mmol/L; ABG HCO3 19 mmol/L (21-25); ABG Oxygen Saturation 99.1 % (94-97); ABG PCO2 34 mmHg (35-45); ABG PH 7.34 (7.35-7.45); ABG PO2 111 mmHg (83-108); ABG TCO2 20 mmol/L (19-24); Allen Test Performed? Yes
[2022-06-08 04:37] LABS: Amphetamine Screen,Urine Not Detected (NotDetected); Barbiturate Screen,Urine Not Detected (NotDetected); Benzodiazepines Screen,Urine Not Detected (NotDetected); Cocaine Screen,Urine Not Detected (NotDetected); Methadone Screen, Urine Not Detected (NotDetected); Opiate Screen,Urine Not Detected (NotDetected); Oxycodone Screen, Urine Not Detected (NotDetected); Phencyclidine Screen,Urine Not Detected (NotDetected); Tricyclic Antidepressant,Urine Not Detected (NotDetected); Urn Cannabinoid Scrn Not Detected (NotDetected)
[2022-06-08 06:05] LABS: Glucose,Whole Blood 102 mg/dL (70-110)
[2022-06-08] MEDS: INSULIN ASPART (NovoLOG) 100 UNIT/ML VIAL SQ SCH ×4 (06:08→21:07)
[2022-06-08] MEDS: LEVOTHYROXINE 100 MCG TAB PO SCH (06:09)
[2022-06-08] MEDS: SODIUM CHLORIDE 0.9% 1,000 ML IV SCH ×2 (06:10→13:49)
--- NOTE | 2022-06-08 07:22 | P.NPCON ---
History of Present Illness - Reason for Consult Consult date: 06/08/22 acute renal failure - Chief Complaint Acute kidney injury - History of Present Illness This 81-year-old female seen in consultation because of acute kidney injury and chronic kidney disease Admission creatinine is 1.7 at baseline is about 1.4. He was seen previously by Dr. Kim on 10/01/2020 and had perhaps one dialysis at the time. She was admitted with generalized weakness. She fell and could not stand up with her walker. No loss of consciousness no dizziness. No nausea vomiting fever chills dysuria frequency does have mild cough. No changes in medication no history of taking any nonsteroidals. Currently she has a Zhang catheter Past history significant for diabetes for unknown number of years, hypertension and hyperlipidemia COPD and CHF Past surgical history cholecystectomy tonsillectomy right breast biopsy and laser surgery to the eyes Past Medical History Past Medical History: Heart Failure, COPD, Diabetes Mellitus, GERD/Reflux, Hyperlipidemia, Hypertension, Osteoarthritis (OA), Pneumonia, Skin Disorder, Thyroid Disorder Additional Past Medical History / Comment(s): IDDM type II, neuropathy L hand, bilateral lower leg venostasis/dermatitis/cellulitis/ulcers/edema, FALLS, weakness, arthritis bilateral knees, vertigo, hypothyroid History of Any Multi-Drug Resistant Organisms: None Reported Past Surgical History: Breast Surgery, Cholecystectomy, Tonsillectomy Additional Past Surgical History / Comment(s): Benign mass removed from neck, R breast benign biopsy, R eye laser surgery/pt cannot recall reason. Past Anesthesia/Blood Transfusion Reactions: No Reported Reaction Past Psychological History: No Psychological Hx Reported Additional Psychological History / Comment(s): [Pt recently was at [facility] for rehab and was discharged from there on 07/05/21. She is to establish with [facility]. Her [facility] live nearby and assist pt with getting groceries, housework. Pt states she can no longer get out of her 2 story home d/t stairs at both doors. She lives on the first floor. She gets meals on wheels. She ambulates with a walker. She manages her own medications and sponge bathes and dresses herself.] Smoking Status: Former smoker Past Alcohol Use History: None Reported Additional Past Alcohol Use History / Comment(s): Pt started smoking in 1959 and quit in 1999 Past Drug Use History: None Reported - Past Family History Father Family Medical History: Hypertension, Myocardial Infarction (ME) Additional Family Medical History / Comment(s): X3 ME, Mother Family Medical History: Cancer Additional Family Medical History / Comment(s): DIES FROM COLON [place] Medications and Allergies Home Medications Medication Instructions Recorded Confirmed Type Levothyroxine Sodium 100 mcg PO DAILY 10/02/19 06/07/22 History Sacubitril/Valsartan [Entresto 24 1 tab PO BID 07/10/21 06/07/22 History mg-26 mg Tablet] Insulin Aspart Prot/Insuln Asp 28 unit SQ DAILY 12/24/21 06/07/22 History [NovoLOG MIX 70-30 Flexpen] Acetaminophen [Tylenol Arthritis] 650 mg PO TID PRN 06/07/22 06/07/22 History Atorvastatin Calcium 40 mg PO HS 06/07/22 06/07/22 History Fluticasone/Vilanterol [Breo 2 puff INHALATION RT-BID 06/07/22 06/07/22 History Ellipta 100-25 Mcg Inhaler] Furosemide [Lasix] 40 mg PO DAILY 06/07/22 06/07/22 History Insulin Aspart Prot/Insuln Asp 10 unit SQ HS 06/07/22 06/07/22 History [Novolog Mix 70-30 Flexpen] amLODIPine [Norvasc] 5 mg PO DAILY 06/07/22 06/07/22 History carvediloL [Coreg] 6.25 mg PO BID 06/07/22 06/07/22 History Allergies Allergy/AdvReac Type Severity Reaction Status Date / Time Penicillins Allergy Rash/Hives Verified 06/07/22 17:12 Physical Exam Vitals: Vital Signs Temp Pulse Pulse Resp BP BP Pulse Ox 06/08/22 02:00 97.9 F 63 22 98/44 96 06/07/22 19:56 97.3 F L 67 22 112/49 98 06/07/22 17:55 97.2 F L 71 17 106/51 95 06/07/22 15:47 99/64 06/07/22 15:37 61 20 90/34 96 06/07/22 14:38 58 L 18 84/50 98 06/07/22 13:50 97.5 F L 06/07/22 13:41 59 L 18 84/45 93 L 06/07/22 12:15 97.4 F L 60 18 139/60 97 Intake and Output 06/07/22 06/08/22 06/08/22 22:59 06:59 14:59 Intake Total 250 Output Total 250 400 Balance 0 -400 Intake: Oral 250 Output: Urine 250 400 Uretheral (Zhang) 250 Stool 0 Other: Voiding Method Indwelling Catheter Weight 103.419 kg On examination she is awake alert but profoundly weak. HEENT exam no JVP noted neck is supple no facial asymmetry Lungs are significant for an occasional basal coarse crackle less than optimal air entry Heart sounds unremarkable for any murmur rub gallop Abdomen soft nontender obese Extremity exam was 2+ edema. Neurologically awake alert oriented able to move all her extremities but profoundly weak Results - Lab Results Most recent lab results ABG pH 7.34 (7.35-7.45) L 06/08/22 00:32 ABG pCO2 34 mmHg (35-45) L 06/08/22 00:32 ABG pO2 111 mmHg (83-108) H 06/08/22 00:32 ABG HCO3 19 mmol/L (21-25) L 06/08/22 00:32 ABG O2 Saturation 99.1 % (94-97) H 06/08/22 00:32 Calcium 8.8 mg/dL (8.4-10.2) 06/07/22 12:58 06/07/22 19:18 06/07/22 12:58 Assessment and Plan Assessment: Impression 1. Acute kidney injury from prerenal from low blood pressure. Cardiorenal syndrome congestive heart failure 2. Chronic kidney disease stage III with a baseline creatinine of about 1.4 with a benign urinalysis likely nephrosclerosis. 3. Diabetes mellitus type 2 with retinopathy 4. Generalized weakness. 5. An deficiency anemia saturation is 9% and hemoglobin is 8.8 6. Mild degree of non-gap acidosis from acute kidney injury and chronic kidney disease, bicarb is 18 gap is 9 Recommendation 1. Repeat echocardiogram to assess LV function previously ejection fraction was 60% year ago in June 2021 2. Repeat chest x-ray to see if there is any evidence of pulmonary edema since she has been given IV fluids. 3. Strict I's and O's 4. Check orthostatic changes with patient sitting by the edge of the bed and call me with the results 5. Monitor labs. 6.. Starts by mouth bicarb 1300 mg 3 times a day
[2022-06-08] MEDS ORDERED: ACETAMINOPHEN TAB 325 MG TAB PO STA (08:30)
[2022-06-08] MEDS: FERROUS SULFATE 325 MG TAB PO SCH ×2 (08:36→17:26)
[2022-06-08] MEDS: SODIUM BICARBONATE TAB 650 MG TAB PO SCH ×4 (08:37→20:55)
[2022-06-08] MEDS: PANTOPRAZOLE 40 MG/10 ML VIAL IVP SCH (08:37)
[2022-06-08 09:11] LABS: Partial Thromboplastin Time 28.5 sec (22.0-30.0)
[2022-06-08 11:26] LABS: Glucose,Whole Blood 101 mg/dL (70-110)
--- NOTE | 2022-06-08 11:37 | P.PN ---
Subjective This is a pleasant 81 years old female with multiple medical problems as below including diabetes mellitus and heart failure. She was in the hospital a few months ago for bilateral lower extremity weakness and bilateral lower extremity ulceration with edema. Presents today from [facility]. Patient lying in bed very weak very lethargic, very pale looking. Not tachypneic. Patient fully awake and oriented, she is oriented to time place and person. She has insight into her problems. Patient states that she cannot stand up and feels very weak. Patient has loss of appetite over the last 3-4 days she was drinking well but she was located in the foot for the last 3-4 days, she was not feeling hungry. Patient also been complaining of from diarrhea. She has about 3-4 bowel movements a day for the last 3-4 days. But no abdominal pain. 06/08/2022 Patient today is sitting up in bed more awake and more strong however she is not back to baseline yet. Mentation At Baseline. She complains from left knee pain and tenderness and both legs especially of the right leg. vital looks stable and there is no orthostatic hypotension patient currently on normal saline 75 mL/h, may consider discontinuing or lower the dose soon given her advanced kidney disease. Yesterday overnight she became unresponsive on and off so retail advertising sales manager and neuro logist were consulted. Most likely her confusion related to her hypotension and other medical problems. She has chronic ulceration, nonhealing ulcers therefore we consulted infectious disease team for further recommendation. Active Medications Generic Name Dose Route Start Last Admin Trade Name Freq PRN Reason Stop Dose Admin Acetaminophen 650 mg 06/08/22 12:30 Acetaminophen Tab 325 Mg Tab PO Q4HR PRN Fever and/ or Pain Atorvastatin Calcium 40 mg 06/07/22 21:00 06/07/22 19:47 Atorvastatin 40 Mg Tab PO 40 mg HS CLYDE Administration Dextrose/Water 25 ml 06/07/22 18:28 Dextrose 50% Syringe 50 Ml IVP PER PROTOCOL PRN Hypoglycemia Protocol Dextrose/Water 50 ml 06/07/22 18:28 Dextrose 50% Syringe 50 Ml IVP PER PROTOCOL PRN Hypoglycemia Protocol Ferrous Sulfate 325 mg 06/08/22 08:30 06/08/22 08:36 Ferrous Sulfate 325 Mg Tab PO 325 mg BID-W/MEALS CLYDE Administration Sodium Chloride 1,000 mls @ 75 mls/hr 06/07/22 15:45 06/08/22 06:10 Saline 0.9% IV 100 mls/hr .[id number] CLYDE Administration Insulin Aspart 0 unit 06/07/22 21:00 06/08/22 06:08 Insulin Aspart (Novolog) 100 Unit/Ml Vial SQ Not Given ACHS [facility] Protocol Levothyroxine Sodium 100 mcg 06/08/22 06:30 06/08/22 06:09 Levothyroxine 100 Mcg Tab PO 100 mcg DAILY@0630 CLYDE Administration Naloxone HCl 0.2 mg 06/07/22 15:35 Naloxone 0.4 Mg/Ml 1 Ml Vial IV Q2M PRN Opioid Reversal Pantoprazole Sodium 40 mg 06/07/22 19:00 06/08/22 08:37 Pantoprazole 40 Mg/10 Ml Vial IVP 40 mg DAILY CLYDE Administration Sodium Bicarbonate 650 mg 06/08/22 09:00 06/08/22 08:37 Sodium Bicarbonate Tab 650 Mg Tab PO 650 mg QID CLDYE Administration Objective - Vital Signs Vital signs: Vital Signs Temp 98.1 F 06/08/22 08:00 Pulse 61 06/08/22 10:14 Resp 17 06/08/22 08:00 BP 115/60 06/08/22 10:14 Pulse Ox 97 06/08/22 08:00 FiO2 Intake & Output 06/07/22 06/08/22 06/08/22 18:59 06:59 18:59 Intake Total 250 Output Total 250 400 Balance 0 -400 Weight 103.419 kg Intake: Oral 250 Output: Urine 250 400 Uretheral (Zhang) 250 Stool 0 Other: Voiding Method Indwelling Catheter Indwelling Catheter - Exam -GENERAL: The patient is alert and oriented x3, not in any acute distress. Obese. Very weak and lethargic HEENT: Pupils are round and equally reacting to light. EOMI. No scleral icterus. No conjunctival pallor. Normocephalic, atraumatic. No pharyngeal erythema. No thyromegaly. CARDIOVASCULAR: S1 and S2 present. No murmurs, rubs, or gallops. PULMONARY: Chest is clear to auscultation, no wheezing or crackles. ABDOMEN: Soft, nontender, nondistended, normoactive bowel sounds. No palpable organomegaly. -MUSCULOSKELETAL: No joint swelling or deformity. Sacral pressure ulcer -EXTREMITIES: No cyanosis, clubbing, or pedal edema. Monitor liver extremity ulcers with surrounding pinkish discoloration, with bilateral leg swelling, no overt cellulitis NEUROLOGICAL: Gross neurological examination did not reveal any focal deficits. SKIN: No rashes. no petechiae. - Labs CBC & Chem 7: 06/07/22 19:18 06/07/22 12:58 Labs: Abnormal Lab Results - Last 24 Hours (Table) 06/07/22 06/07/22 06/07/22 Range/Units 12:50 12:58 13:14 RBC 3.36 L (3.80-5.40) m/uL Hgb 9.8 L (11.4-16.0) gm/dL Hct 30.4 L (34.0-46.0) % Lymphocytes # 0.8 L (1.0-4.8) k/uL ABG pH (7.35-7.45) ABG pCO2 (35-45) mmHg ABG pO2 (83-108) mmHg ABG HCO3 (21-25) mmol/L ABG O2 Saturation (94-97) % Chloride 111 H (98-107) mmol/L Carbon Dioxide 18 L (22-30) mmol/L BUN 48 H (7-17) mg/dL Creatinine 1.75 H (0.52-1.04) mg/dL Glucose 147 H (74-99) mg/dL POC Glucose (mg/dL) (70-110) mg/dL Hemoglobin A1c (0.0-6.0) % Iron (50-170) ug/dL TIBC (228-460) ug/dL % Saturation (12.00-45.00) Transferrin (204.0-354.0) mg/dL Alkaline Phosphatase 128 H (38-126) U/L Albumin 3.3 L (3.5-5.0) g/dL Urine Appearance Cloudy H (Clear) Urine Protein Trace H (Negative) Urine Bacteria Rare H (None) /hpf Hyaline Casts 35 H (0-2) /lpf Urine Mucus Rare H (None) /hpf 06/07/22 06/07/22 06/07/22 Range/Units 13:50 17:48 19:18 RBC (3.80-5.40) m/uL Hgb (11.4-16.0) gm/dL Hct (34.0-46.0) % Lymphocytes # (1.0-4.8) k/uL ABG pH (7.35-7.45) ABG pCO2 (35-45) mmHg ABG pO2 (83-108) mmHg ABG HCO3 (21-25) mmol/L ABG O2 Saturation (94-97) % Chloride (98-107) mmol/L Carbon Dioxide (22-30) mmol/L BUN (7-17) mg/dL Creatinine (0.52-1.04) mg/dL Glucose (74-99) mg/dL POC Glucose (mg/dL) 151 H 125 H (70-110) mg/dL Hemoglobin A1c 7.8 H (0.0-6.0) % Iron (50-170) ug/dL TIBC (228-460) ug/dL % Saturation (12.00-45.00) Transferrin (204.0-354.0) mg/dL Alkaline Phosphatase (38-126) U/L Albumin (3.5-5.0) g/dL Urine Appearance (Clear) Urine Protein (Negative) Urine Bacteria (None) /hpf Hyaline Casts (0-2) /lpf Urine Mucus (None) /hpf 06/07/22 06/07/22 06/07/22 Range/Units 19:18 19:18 20:20 RBC 3.04 L (3.80-5.40) m/uL Hgb 8.8 L (11.4-16.0) gm/dL Hct 28.2 L (34.0-46.0) % Lymphocytes # (1.0-4.8) k/uL ABG pH (7.35-7.45) ABG pCO2 (35-45) mmHg ABG pO2 (83-108) mmHg ABG HCO3 (21-25) mmol/L ABG O2 Saturation (94-97) % Chloride (98-107) mmol/L Carbon Dioxide (22-30) mmol/L BUN (7-17) mg/dL Creatinine (0.52-1.04) mg/dL Glucose (74-99) mg/dL POC Glucose (mg/dL) 199 H (70-110) mg/dL Hemoglobin A1c (0.0-6.0) % Iron 22 L (50-170) ug/dL TIBC 227 L (228-460) ug/dL % Saturation 9.74 L (12.00-45.00) Transferrin 162.0 L (204.0-354.0) mg/dL Alkaline Phosphatase (38-126) U/L Albumin (3.5-5.0) g/dL Urine Appearance (Clear) Urine Protein (Negative) Urine Bacteria (None) /hpf Hyaline Casts (0-2) /lpf Urine Mucus (None) /hpf 06/08/22 Range/Units 00:32 RBC (3.80-5.40) m/uL Hgb (11.4-16.0) gm/dL Hct (34.0-46.0) % Lymphocytes # (1.0-4.8) k/uL ABG pH 7.34 L (7.35-7.45) ABG pCO2 34 L (35-45) mmHg ABG pO2 111 H (83-108) mmHg ABG HCO3 19 L (21-25) mmol/L ABG O2 Saturation 99.1 H (94-97) % Chloride (98-107) mmol/L Carbon Dioxide (22-30) mmol/L BUN (7-17) mg/dL Creatinine (0.52-1.04) mg/dL Glucose (74-99) mg/dL POC Glucose (mg/dL) (70-110) mg/dL Hemoglobin A1c (0.0-6.0) % Iron (50-170) ug/dL TIBC (228-460) ug/dL % Saturation (12.00-45.00) Transferrin (204.0-354.0) mg/dL Alkaline Phosphatase (38-126) U/L Albumin (3.5-5.0) g/dL Urine Appearance (Clear) Urine Protein (Negative) Urine Bacteria (None) /hpf Hyaline Casts (0-2) /lpf Urine Mucus (None) /hpf Assessment and Plan Assessment: Diarrhea, possible gastroenteritis v, Possible reactive. Results Hypovolemia with hypotension, present on admission. Patient has history of hypertension, Improving Multiple Bilateral lower leg ulcers with surrounding edema and discoloration. less likely cellulitis of the lower extremities Lower back sacral pressure ulcer . stage III chronic dependent edema Worsening chronic kidney disease, stage III and possible early stage IV Chronic stasis ulcers Chronic heart failureChronic anemia COPD without exacerbation Diabetes mellitus with hyperglycemia History of GERD Hyperlipidemia History of osteoarthritis Hypothyroidism Morbidly obese Plan: Continue with IV hydration hold blood pressure medication Continue with insulin check and sliding scale Infectious disease team consult for wound management Consult nephrology team for worsening kidney function, GFR is 27 on admission Patient looks very pale. monitor hemoglobin hemoglobin closely. Check occult blood in stool. Anemia workup Labs and medication were reviewed.. Continue same treatment. Continue with symptomatic treatment. Resume home medication. Monitor lytes and vitals. DVT and GI prophylaxis. Further recommendations as per clinical course of the patient DVT prophylaxis: Subcutaneous heparin GI Prophylaxis: Ppi PT/OT: Pending Prognosis is guarded
--- NOTE | 2022-06-08 11:52 | XR ---
Left knee. HISTORY: Pain. COMPARISON: None TECHNIQUE: 2 portable views the right knee were obtained. FINDINGS: Exam is limited by the technique. The osseous structures are diffusely osteopenic. There is no fracture or focal intraosseous abnormality. There is marked degenerative change of the medial compartment knee with near complete loss of the med ial compartment joint space. There is marginal hypertrophic spurring. There is at least moderate degenerative change of the patellofemoral compartment with hypertrophic sp urring and narrowing. The soft tissues unremarkable. IMPRESSION: Limited study but significant degenerative changes of the left knee with near complete loss of the connie int space of the medial compartment indicating severe osteoarthritis. Probable significant degenerati ve changes the patella femoral compartment.
[2022-06-08 13:12] LABS: Basophils # (A) 0.05 X 10*3/uL (0.00-0.10); Eosinophils % (A) 4.1 %; HCT 27.5 % (37.2-46.3); HGB 7.9 g/dL (12.0-15.0); Immature Grans, Automated 0.4 %; Lymphocytes # (A) 1.07 X 10*3/uL (0.90-5.00); Lymphocytes % (A) 21.7 %; MCH 26.7 pg (27.0-32.0); MCHC 28.7 g/dL (32.0-37.0); MCV 92.9 fL (80.0-97.0); Mean Platelet Volume 11.1 fL (9.5-12.2); Monocytes # (A) 0.61 X 10*3/uL (0.20-1.00); Monocytes % (A) 12.4 %; NRBC Per 100 WBC 0 /100 WBCS (0.0-0.0); Neutrophils # (A) 2.98 X 10*3/uL (1.80-7.70); Neutrophils % (A) 60.4 %; Platelet Count 223 X 10*3/uL (140-440); RBC 2.96 X 10*6/uL (4.10-5.20); RDW 15.4 % (11.5-14.5); WBC 4.93 X 10*3/uL (4.50-10.00)
[2022-06-08 13:39] LABS: African American GFR (CKD) 32.2 (60.0-200.0); Anion Gap 9.7 mmol/L (10.00-18.00); BUN/Creat Ratio 25.65 Ratio (12.00-20.00); Blood Urea Nitrogen 43.6 mg/dL (9.0-27.0); Calcium 8.5 mg/dL (8.7-10.3); Carbon Dioxide 18.3 mmol/L (20.0-27.5); Non-African American GFR(CKD) 27.8 (60.0-200.0); Potassium 4.6 mmol/L (3.5-5.5)
--- NOTE | 2022-06-08 15:35 | P.CNNES ---
History of Present Illness Consult date: 06/08/22 Requesting physician: Brett Mota Reason for Consult: Unresponsive episode History of Present Illness: Patient is a 81-year-old female who came to the hospital by ambulance yesterday at 12:11 PM for a syncopal spell. Patient states that she got "awfully weak and couldn't stand and fell down". She was standing, hanging on to her walker and the nurse was wrapping her legs for severe edema. Patient denied any dizziness, lightheadedness, excessive sweating. She did not hit her head. She did not pass out. Patient denies any history of syncopal spells in the past. Patient denied any slurred speech, facial droop, loss of vision, or any other focal symptoms. As per EMS flow sheet, when they arrived, patient was sitting on the family room floor. Patient was with home care nurse. Nurse was attempting to change her bandages on bilateral lower legs and wounds on her bottom when patient became weak and was unable to stand. Nurse helped lower patient to the floor in a seated position and was unable to get patient to stand. Patient was seated on the stairs chair. Patient was taken to the ambulance. Patient's vitals at the scene was blood pressure 143/43, pulse rate 58, respirations 16, saturation 96%. Repeat blood pressure was 124/40. Patient's blood test shows WBC 6.1, hemoglobin 9.8, platelets 230. Electrolytes are normal, BUN 48, creatinine 1.75. Hemoglobin A1c 7.8. Vitamin B12 is 405, folate 9.1. Hepatic panel is normal. Troponin is negative. UA negative, urine drug screen negative. ABG with pH 7.34, pCO2 34, pO2 111. CT head showed cerebral atrophy and chronic small vessel ischemic change. No acute intracranial abnormality. Chest x-ray showed central interstitial prominence and peribronchial scuffing. Correlate for bronchitis or asthma. EKG shows sinus bradycardia x-ray of the knee showed significant degenerative changes with near complete loss of joint space of the medial compartment indicating severe osteoarthritis. Patient states that she has history of diabetes since age 40 years. Patient is complaining of pain in the bottom of the heels bilaterally. It hurts when she is walking, standing or even sometimes sitting. Patient denies any tobacco or alcohol use. She lives by herself, and has been using walker for ambulation for the last 3 years. Patient's daughter and granddaughter lives 2 blocks away and frequently checks on her. Review of Systems Constitutional: Denies chills, Denies fever Eyes: denies blurred vision, denies pain Ears, nose, mouth and throat: Denies headache, Denies sore throat Cardiovascular: Denies chest pain, Denies shortness of breath Respiratory: Denies cough Gastrointestinal: Denies abdominal pain, Denies diarrhea, Denies nausea, Denies vomiting Genitourinary: Denies dysuria, Denies hematuria Musculoskeletal: Denies myalgias Integumentary: Reports color changes, Reports rash, Reports wounds, Denies pruritus Neurological: Reports as per HPI, Reports paresthesias Psychiatric: Denies anxiety, Denies depression Endocrine: Reports weight change, Denies fatigue Hematologic/Lymphatic: Reports lymphedema Past Medical History Past Medical History: Heart Failure, COPD, Diabetes Mellitus, GERD/Reflux, Hyperlipidemia, Hypertension, Osteoarthritis (OA), Pneumonia, Skin Disorder, Thyroid Disorder Additional Past Medical History / Comment(s): IDDM type II, neuropathy L hand, bilateral lower leg venostasis/dermatitis/cellulitis/ulcers/edema, FALLS, weakness, arthritis bilateral knees, vertigo, hypothyroid History of Any Multi-Drug Resistant Organisms: None Reported Past Surgical History: Breast Surgery, Cholecystectomy, Tonsillectomy Additional Past Surgical History / Comment(s): Benign mass removed from neck, R breast benign biopsy, R eye laser surgery/pt cannot recall reason. Past Anesthesia/Blood Transfusion Reactions: No Reported Reaction Past Psychological History: No Psychological Hx Reported Additional Psychological History / Comment(s): [Pt recently was at [facility] for rehab and was discharged from there on 07/05/21. She is to establish with Residential home care. Her [facility] and [facility] live nearby and assist pt with getting groceries, housework. Pt states she can no longer get out of her 2 story home d/t stairs at both doors. She lives on the first floor. She gets meals on wheels. She ambulates with a walker. She manages her own medications and sponge bathes and dresses herself.] Smoking Status: Former smoker Past Alcohol Use History: None Reported Additional Past Alcohol Use History / Comment(s): Pt started smoking in 1959 and quit in 1999 Past Drug Use History: None Reported - Past Family History Father Family Medical History: Hypertension, Myocardial Infarction ([place]) Additional Family Medical History / Comment(s): X3 [place], Mother Family Medical History: Cancer Additional Family Medical History / Comment(s): DIES FROM COLON CA Medications and Allergies Home Medications Medication Instructions Recorded Confirmed Type Levothyroxine Sodium 100 mcg PO DAILY 10/02/19 06/07/22 History Sacubitril/Valsartan [Entresto 24 1 tab PO BID 07/10/21 06/07/22 History mg-26 mg Tablet] Insulin Aspart Prot/Insuln Asp 28 unit SQ DAILY 12/24/21 06/07/22 History [NovoLOG MIX 70-30 Flexpen] Acetaminophen [Tylenol Arthritis] 650 mg PO TID PRN 06/07/22 06/07/22 History Atorvastatin Calcium 40 mg PO HS 06/07/22 06/07/22 History Fluticasone/Vilanterol [Breo 2 puff INHALATION RT-BID 06/07/22 06/07/22 History Ellipta 100-25 Mcg Inhaler] Furosemide [Lasix] 40 mg PO DAILY 06/07/22 06/07/22 History Insulin Aspart Prot/Insuln Asp 10 unit SQ HS 06/07/22 06/07/22 History [Novolog Mix 70-30 Flexpen] amLODIPine [Norvasc] 5 mg PO DAILY 06/07/22 06/07/22 History carvediloL [Coreg] 6.25 mg PO BID 06/07/22 06/07/22 History Allergies Allergy/AdvReac Type Severity Reaction Status Date / Time Penicillins Allergy Rash/Hives Verified 06/07/22 17:12 Physical Examination - Vital Signs Vital Signs: Vital Signs Temp Pulse Pulse Resp BP BP BP 06/08/22 10:14 61 117/43 06/08/22 08:00 98.1 F 58 L 17 101/59 06/08/22 02:00 97.9 F 63 22 98/44 06/07/22 19:56 97.3 F L 67 22 112/49 06/07/22 17:55 97.2 F L 71 17 106/51 06/07/22 15:47 99/64 06/07/22 15:37 61 20 90/34 06/07/22 14:38 58 L 18 84/50 BP BP Pulse Ox 06/08/22 10:14 124/54 115/60 06/08/22 08:00 97 06/08/22 02:00 96 06/07/22 19:56 98 06/07/22 17:55 95 06/07/22 15:47 06/07/22 15:37 96 06/07/22 14:38 98 Intake and Output 06/07/22 06/08/22 06/08/22 22:59 06:59 14:59 Intake Total 250 Output Total 250 400 Balance 0 -400 Intake: Oral 250 Output: Urine 250 400 Uretheral (Zhang) 250 Stool 0 Other: Voiding Method Indwelling Catheter Weight 103.419 kg Patient is an elderly female very pleasant in no acute distress. Patient is alert awake oriented to time place and person. Speech and language functions are normal. Patient can name and repeat very well. No aphasia or dysarthria. Attention, concentration and fund of knowledge is adequate. On cranial nerve examination, pupils are equal, round and reacting to light, visual bernabe are full on confrontation, with no neglect on double simultaneous stimulation. Extraocular muscles are intact with no nystagmus. Face is symmetric, tongue protrudes to the midline. Palatal elevation and sensation normal, hearing and shoulder shrug normal, facial sensation normal. On muscle strength testing, there is no pronator drift and the strength is normal in arms and legs distally and proximally. Her right shoulder is Deep tendon reflexes are symmetric and hypoactive bilaterally. Plantars are flat. Sensory to touch is equal with no neglect on double simultaneous stimulation. Cerebellar function showed no ataxia for [id number] testing. No dysdiadochokinesia. No ataxia for [id number]-[id number] testing on either side. Tone and bulk of muscles normal. Gait deferred.. On general examination, there is prominent right carotid bruit. There is no murmur, S1-S2 audible. Chest is clear on consultation. Abdomen is soft nontender. No organomegaly, bowel sounds present. Moderate peripheral edema. Results - Laboratory Findings CBC and BMP: 06/09/22 04:35 06/09/22 04:35 Abnormal Lab Findings: Abnormal Labs 06/07/22 06/07/22 06/07/22 12:50 12:58 13:14 RBC 3.36 L Hgb 9.8 L Hct 30.4 L MCH MCHC RDW Lymphocytes # 0.8 L ABG pH ABG pCO2 ABG pO2 ABG HCO3 ABG O2 Saturation Chloride 111 H Carbon Dioxide 18 L Anion Gap BUN 48 H Creatinine 1.75 H Est GFR (CKD-EPI)AfAm Est GFR (CKD-EPI)NonAf BUN/Creatinine Ratio Glucose 147 H POC Glucose (mg/dL) Hemoglobin A1c Calcium Iron TIBC % Saturation Transferrin Alkaline Phosphatase 128 H Albumin 3.3 L Urine Appearance Cloudy H Urine Protein Trace H Urine Bacteria Rare H Hyaline Casts 35 H Urine Mucus Rare H 06/07/22 06/07/22 06/07/22 13:50 17:48 19:18 RBC Hgb Hct MCH MCHC RDW Lymphocytes # ABG pH ABG pCO2 ABG pO2 ABG HCO3 ABG O2 Saturation Chloride Carbon Dioxide Anion Gap BUN Creatinine Est GFR (CKD-EPI)AfAm Est GFR (CKD-EPI)NonAf BUN/Creatinine Ratio Glucose POC Glucose (mg/dL) 151 H 125 H Hemoglobin A1c 7.8 H Calcium Iron TIBC % Saturation Transferrin Alkaline Phosphatase Albumin Urine Appearance Urine Protein Urine Bacteria Hyaline Casts Urine Mucus 06/07/22 06/07/22 06/07/22 19:18 19:18 20:20 RBC 3.04 L Hgb 8.8 L Hct 28.2 L MCH MCHC RDW Lymphocytes # ABG pH ABG pCO2 ABG pO2 ABG HCO3 ABG O2 Saturation Chloride Carbon Dioxide Anion Gap BUN Creatinine Est GFR (CKD-EPI)AfAm Est GFR (CKD-EPI)NonAf BUN/Creatinine Ratio Glucose POC Glucose (mg/dL) 199 H Hemoglobin A1c Calcium Iron 22 L TIBC 227 L % Saturation 9.74 L Transferrin 162.0 L Alkaline Phosphatase Albumin Urine Appearance Urine Protein Urine Bacteria Hyaline Casts Urine Mucus 06/08/22 06/08/22 06/08/22 00:32 07:32 07:32 RBC 2.96 L Hgb 7.9 L Hct 27.5 L MCH 26.7 L MCHC 28.7 L RDW 15.4 H Lymphocytes # ABG pH 7.34 L ABG pCO2 34 L ABG pO2 111 H ABG HCO3 19 L ABG O2 Saturation 99.1 H Chloride 115 H Carbon Dioxide 18.3 L Anion Gap 9.70 L BUN 43.6 H Creatinine 1.7 H Est GFR (CKD-EPI)AfAm 32.2 L Est GFR (CKD-EPI)NonAf 27.8 L BUN/Creatinine Ratio 25.65 H Glucose POC Glucose (mg/dL) Hemoglobin A1c Calcium 8.5 L Iron TIBC % Saturation Transferrin Alkaline Phosphatase Albumin Urine Appearance Urine Protein Urine Bacteria Hyaline Casts Urine Mucus Assessment and Plan Assessment: * Near syncope, with episode of some unresponsiveness, likely vasovagal. * Right carotid bruit, rule out stenosis. * End-stage renal disease on hemodialysis * Severe peripheral edema * Possible peripheral neuropathy * Diabetes * Mild B12 and folate deficiency Plan: * Carotid Doppler to rule out stenosis * Hemoglobin A1c 7.8 on 06/07/2022. * B12 405, folate 9.10. We will start B12, folate replacement. Hopefully will help with possible peripheral neuropathy. Recommend optimize contorting of diabetes, as per IM. * Medical management as per IM and other specialties. * Neurology will follow. Thank you for the consult. Addendum: Carotid Doppler revealed moderate right ICA stenosis 50-70%. There is less than 50% stenosis of both common carotid arteries. Less than 50% stenosis in the left ICA. Vertebral arteries were not able to be visualized. Suggest repeat carotid Doppler in 6 months to a year for a follow-up. Suggest starting aspirin 81 mg if no medical contraindications. Check lipid panel. Patient on Lipitor 40 mg daily.
--- NOTE | 2022-06-08 16:06 | US ---
EXAMINATION TYPE: US carotid duplex BILAT DATE OF EXAM: 06/08/2022 COMPARISON: NONE CLINICAL HISTORY: Syncope. Syncope TECHNIQUE: Carotid duplex ultrasound examination. Indirect Doppler criteria was utilized. FINDINGS: EXAM MEASUREMENTS: RIGHT: Peak Systolic Velocity (PSV) cm/sec ----- Right CCA: 77.9 ----- Right ICA: 185.6 ----- Right ECA: 139.8 ICA/CCA ratio: 2.4 RIGHT: End Diastole cm/sec ----- Right CCA: 12.0 ----- Right ICA: 25.3 ----- Right ECA: 0.0 LEFT: Peak Systolic Velocity (PSV) cm/sec ----- Left CCA: 87.9 ----- Left ICA: 108.1 ----- Left ECA: 155.4 ICA/CCA ratio: 1.2 LEFT: End Diastole cm/sec ----- Left CCA: 15.4 ----- Left ICA: 14.4 ----- Left ECA: 0.0 VERTEBRALS (direction of flow): Right Vertebral: Unable to visualize Left Vertebral: Unable to visualize Rhythm: Normal [employer] NOTES: Heterogeneous plaque bilaterally with elevated velocities, more on right side IMPRESSION: Images and measurements suggest 50-70% stenosis in the right internal carotid artery. There is less t gomez 50% stenosis in both common carotid arteries. There is less than 50% stenosis in the left interna l carotid artery. Vertebral arteries were not evaluated. No flow detected. Criteria for Assigning % of Stenosis / Diameter reduction (Estimation based on the indirect measurements of the internal carotid artery velocities (ICA PSV). 1. Normal (no stenosis)=ICA PSV < 125 cm/s: ratio < 2.0: ICA EDV<40 cm/s. 2. Less than 50% stenosis=ICA PSV < 125 cm/s: ratio < 2.0: ICA EDV<40 cm/s. 3. 50 to 69% stenosis=ICA PSV of 125 to 230 cm/s: ration 2.0 ? 4.0: ICA EDV 40-100 cm/s. 4. Greater than 70% stenosis to near occlusion= ICA PSV > 230 cm/s: ratio > 4.0: ICA EDV > 100 cm/s. 5. Near occlusion= ICA PSV velocities may be low or undetectable: variable ratio and ICA EDV. 6. Total occlusion=unable to detect flow.
[2022-06-08 16:35] LABS: Glucose,Whole Blood 95 mg/dL (70-110)
--- NOTE | 2022-06-08 17:17 | P.CRDCN ---
History of Present Illness History of present illness: HISTORY OF PRESENTING ILLNESS Patient is a pleasant 81-year-old female with history of hypertension, diabetes, chronic diastolic heart failure, aortic stenosis, pressure ulcers, debility. S he states she does not follow with a document review specialist. She was last seen in the hospital November 2019 and last echocardiogram 05/2021 showed EF 60-65%, severely dilated left atrium, mild aortic stenosis, mild to moderate mitral stenosis, RVSP 49. Patient states she normally has helpers with rehab and physical therapy and was being helped to stand up by visiting nurse however start feeling weak and then fell down. There was some concern of loss of consciousness however patient states she did not lose consciousness and only felt lightheaded and then fell and felt like her legs gave out from under her. She usually does not do much walking. Initial blood pressure reading of 139/60 however repeat at 84/45. She denies any changes to her blood pressure medications. Denies any chest pain or pressure. No shortness breath. Hemoglobin initially 9.8 however downtrending to 7.9, no hematochezia or melena, bicarb 18, creatinine 1.7, hemoglobin A1c 7.8, troponin times 10.012. CT brain showed cerebral atrophy and chronic small vessel ischemia with no acute process. Carotid ultrasound showed 50-70% stenosis on the right and less than 50% on the left internal carotid artery. EKG shows sinus rhythm, normal axis, no significant ST or T-wave abnormalities. REVIEW OF SYSTEMS At the time of my exam: CONSTITUTIONAL: Denies fever or chills. CARDIOVASCULAR: Denies chest pain, shortness of breath, orthopnea, PND or palpitations. RESPIRATORY: Denies cough. GASTROINTESTINAL: Denies abdominal pain, diarrhea, constipation, nausea or vomiting. MUSCULOSKELETAL: Denies myalgias. NEUROLOGIC: Denies numbness, tingling or weakness. ENDOCRINE: Denies fatigue, weight change, polydipsia or polyurina. GENITOURINARY: Denies burning, hematuria or urgency with micturation. HEMATOLOGIC: Denies history of anemia or bleeding. PHYSICAL EXAMINATION Vital signs reviewed. CONSTITUTIONAL: No apparent distress, chronically ill appearing, obese, mildly pale HEENT: Head is normocephalic. Pupils are equal, round. Sclerae anicteric. Mucous membranes of the mouth are moist. No JVD. No carotid bruit. CHEST EXAMINATION: Lungs are clear to auscultation. No chest wall tenderness is noted on palpation or with deep breathing. HEART EXAMINATION: Regular rate and rhythm. S1, S2 heard. No murmurs, gallops or rub. ABDOMEN: Soft, nontender. Positive bowel sounds. EXTREMITIES: 2+ peripheral pulses, no lower extremity edema and no calf tenderness. NEUROLOGIC EXAMINATION: Patient is awake, alert and oriented x3. ASSESSMENT 1. Episode of unresponsiveness with fall. No clear-cut syncope and patient states her legs gave out from under her 2. Hypotensive episodes, may be related to over medicated with blood pressure medications versus rule out other sepsis versus other 3. Chronic kidney disease 4. Chronic diastolic heart failure, appears euvolemic 5. Aortic stenosis, mild by prior echo 6. DM2 7. 50-70% right internal carotid artery stenosis 8. Chronic debility PLAN Patient denied any actual syncope and mainly states felt lightheaded and legs gave out from under her. She does have significant chronic debility. Patient was noted however to be hypotensive and we will decrease hypertensive medica tions, hold all BP meds for now and slowly add back as needed. Check 2D echo. Further recs to follow. Past Medical History Past Medical History: Heart Failure, COPD, Diabetes Mellitus, GERD/Reflux, Hyperlipidemia, Hypertension, Osteoarthritis (OA), Pneumonia, Skin Disorder, Thyroid Disorder Additional Past Medical History / Comment(s): IDDM type II, neuropathy L hand, bilateral lower leg venostasis/dermatitis/cellulitis/ulcers/edema, FALLS, weakness, arthritis bilateral knees, vertigo, hypothyroid History of Any Multi-Drug Resistant Organisms: None Reported Past Surgical History: Breast Surgery, Cholecystectomy, Tonsillectomy Additional Past Surgical History / Comment(s): Benign mass removed from neck, R breast benign biopsy, R eye laser surgery/pt cannot recall reason. Past Anesthesia/Blood Transfusion Reactions: No Reported Reaction Past Psychological History: No Psychological Hx Reported Additional Psychological History / Comment(s): [Pt recently was at [facility] for rehab and was discharged from there on 07/05/21. She is to establish with Residential home care. Her [facility] and [facility] live nearby and assist pt with getting groceries, housework. Pt states she can no longer get out of her 2 story home d/t stairs at both doors. She lives on the first floor. She gets meals on wheels. She ambulates with a walker. She manages her own medications and sponge bathes and dresses herself.] Smoking Status: Former smoker Past Alcohol Use History: None Reported Additional Past Alcohol Use History / Comment(s): Pt started smoking in 1959 and quit in 1999 Past Drug Use History: None Reported - Past Family History Father Family Medical History: Hypertension, Myocardial Infarction ([place]) Additional Family Medical History / Comment(s): X3 [place], Mother Family Medical History: Cancer Additional Family Medical History / Comment(s): DIES FROM COLON [place] Medications and Allergies Home Medications Medication Instructions Recorded Confirmed Type Levothyroxine Sodium 100 mcg PO DAILY 10/02/19 06/07/22 History Sacubitril/Valsartan [Entresto 24 1 tab PO BID 07/10/21 06/07/22 History mg-26 mg Tablet] Insulin Aspart Prot/Insuln Asp 28 unit SQ DAILY 12/24/21 06/07/22 History [NovoLOG MIX 70-30 Flexpen] Acetaminophen [Tylenol Arthritis] 650 mg PO TID PRN 06/07/22 06/07/22 History Atorvastatin Calcium 40 mg PO HS 06/07/22 06/07/22 History Fluticasone/Vilanterol [Breo 2 puff INHALATION RT-BID 06/07/22 06/07/22 History Ellipta 100-25 Mcg Inhaler] Furosemide [Lasix] 40 mg PO DAILY 06/07/22 06/07/22 History Insulin Aspart Prot/Insuln Asp 10 unit SQ HS 06/07/22 06/07/22 History [Novolog Mix 70-30 Flexpen] amLODIPine [Norvasc] 5 mg PO DAILY 06/07/22 06/07/22 History carvediloL [Coreg] 6.25 mg PO BID 06/07/22 06/07/22 History Allergies Allergy/AdvReac Type Severity Reaction Status Date / Time Penicillins Allergy Rash/Hives Verified 06/07/22 17:12 Physical Exam Vitals: Vital Signs Temp Pulse Resp BP BP BP BP 06/08/22 14:00 97.6 F 58 L 115/60 06/08/22 10:14 61 117/43 124/54 115/60 06/08/22 08:00 98.1 F 58 L 17 101/59 06/08/22 02:00 97.9 F 63 22 98/44 06/07/22 19:56 97.3 F L 67 22 112/49 06/07/22 17:55 97.2 F L 71 17 106/51 Pulse Ox 06/08/22 14:00 97 06/08/22 10:14 06/08/22 08:00 97 06/08/22 02:00 96 06/07/22 19:56 98 06/07/22 17:55 95 Intake and Output 06/08/22 06/08/22 06/08/22 06:59 14:59 22:59 Output Total 400 Balance -400 Output: Urine 400 Results 06/08/22 07:32 06/08/22 07:32 Coagulation 06/08/22 Range/Units 07:32 PT 11.0 (9.0-12.0) sec APTT 28.5 (22.0-30.0) sec CBC 06/07/22 06/08/22 Range/Units 19:18 07:32 WBC 5.7 4.93 (3.8-10.6) k/uL RBC 3.04 L 2.96 L (3.80-5.40) m/uL Hgb 8.8 L 7.9 L (11.4-16.0) gm/dL Hct 28.2 L 27.5 L (34.0-46.0) % Plt Count 230 223 (150-450) k/uL Comprehensive Metabolic Panel 06/08/22 Range/Units 07:32 Sodium 143 (135-145) mmol/L Potassium 4.6 (3.5-5.5) mmol/L Chloride 115 H (96-109) mmol/L Carbon Dioxide 18.3 L (20.0-27.5) mmol/L BUN 43.6 H (9.0-27.0) mg/dL Creatinine 1.7 H (0.6-1.5) mg/dL Glucose 90 (70-110) mg/dL Calcium 8.5 L (8.7-10.3) mg/dL Current Medications Generic Name Dose Route Start Last Admin Trade Name Freq PRN Reason Stop Dose Admin Acetaminophen 650 mg 06/08/22 12:30 Acetaminophen Tab 325 Mg Tab PO Q4HR PRN Fever and/ or Pain Atorvastatin Calcium 40 mg 06/07/22 21:00 06/07/22 19:47 Atorvastatin 40 Mg Tab PO 40 mg HS CLYDE Administration Dextrose/Water 25 ml 06/07/22 18:28 Dextrose 50% Syringe 50 Ml IVP PER PROTOCOL PRN Hypoglycemia Protocol Dextrose/Water 50 ml 06/07/22 18:28 Dextrose 50% Syringe 50 Ml IVP PER PROTOCOL PRN Hypoglycemia Protocol Ferrous Sulfate 325 mg 06/08/22 08:30 06/08/22 08:36 Ferrous Sulfate 325 Mg Tab PO 325 mg BID-W/MEALS CLYDE Administration Sodium Chloride 1,000 mls @ 75 mls/hr 06/07/22 15:45 06/08/22 13:49 Saline 0.9% IV 75 mls/hr .[id number] CLYDE Administration Insulin Aspart 0 unit 06/07/22 21:00 06/08/22 13:22 Insulin Aspart (Novolog) 100 Unit/Ml Vial SQ Not Given ACHS CLYDE Protocol Levothyroxine Sodium 100 mcg 06/08/22 06:30 06/08/22 06:09 Levothyroxine 100 Mcg Tab PO 100 mcg DAILY@0630 CLYDE Administration Naloxone HCl 0.2 mg 06/07/22 15:35 Naloxone 0.4 Mg/Ml 1 Ml Vial IV Q2M PRN Opioid Reversal Pantoprazole Sodium 40 mg 06/07/22 19:00 06/08/22 08:37 Pantoprazole 40 Mg/10 Ml Vial IVP 40 mg DAILY CLYDE Administration Sodium Bicarbonate 650 mg 06/08/22 09:00 06/08/22 13:47 Sodium Bicarbonate Tab 650 Mg Tab PO 650 mg QID CLYDE Administration Intake and Output 06/08/22 06/08/22 06/08/22 06:59 14:59 22:59 Output Total 400 Balance -400 Output: Urine 400 06/08/22 07:32 06/08/22 07:32
[2022-06-08] MEDS: ACETAMINOPHEN TAB 325 MG TAB PO PRN ×2 (17:32→20:54)
[2022-06-08] MEDS: ATORVASTATIN 40 MG TAB PO SCH (20:55)
[2022-06-08 21:06] LABS: Glucose,Whole Blood 122 mg/dL (70-110)
--- NOTE | 2022-06-08 23:18 | P.CONS ---
History of Present Illness - Reason for Consult Consult date: 06/08/22 wounds Requesting physician: Rosendo Fallon - Chief Complaint Increasing weakness x few days - History of Present Illness Patient is a 81-year-old female with a past medical history significant for COPD diabetes mellitus hypertension hyperlipidemia heart failure with has been sent to the ER for evaluation of increasing weakness patient being lethargic and not doing well patient on presentation to the hospital was afebrile and no fever have been recorded subsequently patient did have a normal white count did have elevated BUN/creatinine liver enzymes are normal urine has been negative urine drug screen was negative chest x-ray pleuritic exam correlate for bronchitis or asthma patient noticed to have a multiple wounds to the sacral and gluteal area and also have some diffuse swelling to the right lower extremity but no open wound or drainage infectious was consulted for further management of her wounds and need for antibiotic therapy patient mention she is having the wounds to the sacral area for a couple of months now patient not clear what type of treatment she has been receiving for it she has been complaining of some dull aching pain and no foul-smelling drainage Review of Systems Positive point has been mentioned in the HPI rest of the systems are negative Past Medical History Past Medical History: Heart Failure, COPD, Diabetes Mellitus, GERD/Reflux, Hyperlipidemia, Hypertension, Osteoarthritis (OA), Pneumonia, Skin Disorder, Thyroid Disorder Additional Past Medical History / Comment(s): IDDM type II, neuropathy L hand, bilateral lower leg venostasis/dermatitis/cellulitis/ulcers/edema, FALLS, weakness, arthritis bilateral knees, vertigo, hypothyroid History of Any Multi-Drug Resistant Organisms: None Reported Past Surgical History: Breast Surgery, Cholecystectomy, Tonsillectomy Additional Past Surgical History / Comment(s): Benign mass removed from neck, R breast benign biopsy, R eye laser surgery/pt cannot recall reason. Past Anesthesia/Blood Transfusion Reactions: No Reported Reaction Past Psychological History: No Psychological Hx Reported Additional Psychological History / Comment(s): [Pt recently was at [facility] for rehab and was discharged from there on 07/05/21. She is to establish with [facility]. Her [facility] and [facility] live nearby and assist pt with getting groceries, housework. Pt states she can no longer get out of her 2 story home d/t stairs at both doors. She lives on the first floor. She gets meals on wheels. She ambulates with a walker. She manages her own medications and sponge bathes and dresses herself.] Smoking Status: Former smoker Past Alcohol Use History: None Reported Additional Past Alcohol Use History / Comment(s): Pt started smoking in 1959 and quit in 1999 Past Drug Use History: None Reported - Past Family History Father Family Medical History: Hypertension, Myocardial Infarction (OR) Additional Family Medical History / Comment(s): X3 OR, Mother Family Medical History: Cancer Additional Family Medical History / Comment(s): DIES FROM [place] Medications and Allergies Home Medications Medication Instructions Recorded Confirmed Type Levothyroxine Sodium 100 mcg PO DAILY 10/02/19 06/07/22 History Acetaminophen [Tylenol Arthritis] 650 mg PO TID PRN 06/07/22 06/07/22 History Fluticasone/Vilanterol [Breo 2 puff INHALATION RT-BID 06/07/22 06/07/22 History Ellipta 100-25 Mcg Inhaler] amLODIPine [Norvasc] 5 mg PO DAILY 06/07/22 06/07/22 History carvediloL [Coreg] 6.25 mg PO BID 06/07/22 06/07/22 History Acetaminophen Tab [Tylenol] 650 mg PO Q4HR PRN tab 06/17/22 Rx Cyanocobalamin [Vitamin B-12] 1,000 mcg PO DAILY 90 Days #90 tab 06/17/22 Rx Ferrous Sulfate [Iron (65 MG 325 mg PO BID-W/MEALS #120 tab 06/17/22 Rx Elemental)] Folic Acid 1 mg PO DAILY #90 tab 06/17/22 Rx Ipratropium-Albuterol Nebulize 3 ml INHALATION RT-QID 90 Days 06/17/22 Rx [Duoneb 0.5 mg-3 mg/3 ml Soln] #120 each Sacubitril/Valsartan [Entresto 97 1 each PO BID 90 Days #60 tab 06/17/22 Rx mg-103 mg Tablet] metOLazone [Zaroxolyn] 5 mg PO DAILY #90 tab 06/17/22 Rx INSULIN ASPART (NovoLOG) [NovoLOG 0 unit SQ ACHS each 06/18/22 Rx (formulary)] Insulin Detemir (Levemir) [Levemir] 6 unit SQ DAILY@0700 each 06/18/22 Rx Torsemide [Demadex] 20 mg PO DAILY tab 06/18/22 Rx Allergies Allergy/AdvReac Type Severity Reaction Status Date / Time Penicillins Allergy Rash/Hives Verified 06/07/22 17:12 Physical Exam Vitals: Vital Signs Temp Pulse Resp BP BP BP BP 06/08/22 14:00 97.6 F 58 L 115/60 06/08/22 10:14 61 117/43 124/54 115/60 06/08/22 08:00 98.1 F 58 L 17 101/59 06/08/22 02:00 97.9 F 63 22 98/44 06/07/22 19:56 97.3 F L 67 22 112/49 06/07/22 17:55 97.2 F L 71 17 106/51 Pulse Ox 06/08/22 14:00 97 06/08/22 10:14 06/08/22 08:00 97 06/08/22 02:00 96 06/07/22 19:56 98 06/07/22 17:55 95 Intake and Output 06/08/22 06/08/22 06/08/22 06:59 14:59 22:59 Output Total 400 Balance -400 Output: Urine 400 GENERAL DESCRIPTION: Elderly female lying in bed, no distress. No tachypnea or accessory muscle of respiration use. HEENT: Shows Pallor , no scleral icterus. Oral mucous membrane is dry. No pharyngeal erythema or thrush NECK: Trachea central, no thyromegaly. LUNGS: Unlabored breathing. Clear to auscultation anteriorly. No wheeze or crackle. HEART: S1, S2, regular rate and rhythm. No loud murmur ABDOMEN: Soft, no tenderness , guarding or rigidity, no organomegaly EXTREMITIES: Diffuse swelling to bilateral lower extremity minimal erythema no warmth no drainage. SKIN: No rash, no masses palpable. Stage II sacral pressure ulcer with no slough tissue no surrounding redness or drainage NEUROLOGICAL: The patient is awake, alert, oriented x3, mood and affect normal. Results CBC & Chem 7: 06/13/22 10:44 06/18/22 10:33 Labs: Abnormal Lab Results - Last 24 Hours (Table) 06/07/22 06/07/22 06/07/22 Range/Units 17:48 19:18 19:18 RBC 3.04 L (3.80-5.40) m/uL Hgb 8.8 L (11.4-16.0) gm/dL Hct 28.2 L (34.0-46.0) % MCH (27.0-32.0) pg MCHC (32.0-37.0) g/dL RDW (11.5-14.5) % ABG pH (7.35-7.45) ABG pCO2 (35-45) mmHg ABG pO2 (83-108) mmHg ABG HCO3 (21-25) mmol/L ABG O2 Saturation (94-97) % Chloride (96-109) mmol/L Carbon Dioxide (20.0-27.5) mmol/L Anion Gap (10.00-18.00) mmol/L BUN (9.0-27.0) mg/dL Creatinine (0.6-1.5) mg/dL Est GFR (CKD-EPI)AfAm (60.0-200.0) Est GFR (CKD-EPI)NonAf (60.0-200.0) BUN/Creatinine Ratio (12.00-20.00) Ratio POC Glucose (mg/dL) 125 H (70-110) mg/dL Hemoglobin A1c 7.8 H (0.0-6.0) % Calcium (8.7-10.3) mg/dL Iron (50-170) ug/dL TIBC (228-460) ug/dL % Saturation (12.00-45.00) Transferrin (204.0-354.0) mg/dL 06/07/22 06/07/22 06/08/22 Range/Units 19:18 20:20 00:32 RBC (3.80-5.40) m/uL Hgb (11.4-16.0) gm/dL Hct (34.0-46.0) % MCH (27.0-32.0) pg MCHC (32.0-37.0) g/dL RDW (11.5-14.5) % ABG pH 7.34 L (7.35-7.45) ABG pCO2 34 L (35-45) mmHg ABG pO2 111 H (83-108) mmHg ABG HCO3 19 L (21-25) mmol/L ABG O2 Saturation 99.1 H (94-97) % Chloride (96-109) mmol/L Carbon Dioxide (20.0-27.5) mmol/L Anion Gap (10.00-18.00) mmol/L BUN (9.0-27.0) mg/dL Creatinine (0.6-1.5) mg/dL Est GFR (CKD-EPI)AfAm (60.0-200.0) Est GFR (CKD-EPI)NonAf (60.0-200.0) BUN/Creatinine Ratio (12.00-20.00) Ratio POC Glucose (mg/dL) 199 H (70-110) mg/dL Hemoglobin A1c (0.0-6.0) % Calcium (8.7-10.3) mg/dL Iron 22 L (50-170) ug/dL TIBC 227 L (228-460) ug/dL % Saturation 9.74 L (12.00-45.00) Transferrin 162.0 L (204.0-354.0) mg/dL 06/08/22 06/08/22 Range/Units 07:32 07:32 RBC 2.96 L (3.80-5.40) m/uL Hgb 7.9 L (11.4-16.0) gm/dL Hct 27.5 L (34.0-46.0) % MCH 26.7 L (27.0-32.0) pg MCHC 28.7 L (32.0-37.0) g/dL RDW 15.4 H (11.5-14.5) % ABG pH (7.35-7.45) ABG pCO2 (35-45) mmHg ABG pO2 (83-108) mmHg ABG HCO3 (21-25) mmol/L ABG O2 Saturation (94-97) % Chloride 115 H (96-109) mmol/L Carbon Dioxide 18.3 L (20.0-27.5) mmol/L Anion Gap 9.70 L (10.00-18.00) mmol/L BUN 43.6 H (9.0-27.0) mg/dL Creatinine 1.7 H (0.6-1.5) mg/dL Est GFR (CKD-EPI)AfAm 32.2 L (60.0-200.0) Est GFR (CKD-EPI)NonAf 27.8 L (60.0-200.0) BUN/Creatinine Ratio 25.65 H (12.00-20.00) Ratio POC Glucose (mg/dL) (70-110) mg/dL Hemoglobin A1c (0.0-6.0) % Calcium 8.5 L (8.7-10.3) mg/dL Iron (50-170) ug/dL TIBC (228-460) ug/dL % Saturation (12.00-45.00) Transferrin (204.0-354.0) mg/dL Assessment and Plan (1) Pressure injury of coccygeal region, stage 2 Status: Acute Code(s): L89.152 - PRESSURE ULCER OF SACRAL REGION, STAGE 2 SNOMED Code(s): 740762624 (2) Pressure ulcer of left buttock, stage 2 Status: Acute Code(s): L89.322 - PRESSURE ULCER OF LEFT BUTTOCK, STAGE 2 SNOMED Code(s): 99428257058472 Plan: 1patient did have a stage II pressure ulcer to the sacral and gluteal area with no slough tissue no surrounding redness we will recommend local wound care with the dry Aquacel silver dressing change daily 48-hour. 2patient did have a right lower extremity some swelling no significant redness open wound or any drainage advised compression dressing to keep the swelling down. 3patient with no fever elevated white count clinically doubt infectious etiology hence we will hold on any antibiotic therapy at this point. We will follow on clinical condition and cultures to further adjust medication if needed Thank you for this consultation will follow this patient along with you Time with Patient: Greater than 30
[2022-06-09 06:14] LABS: Glucose,Whole Blood 110 mg/dL (70-110)
[2022-06-09] MEDS: LEVOTHYROXINE 100 MCG TAB PO SCH (06:26)
[2022-06-09] MEDS: FERROUS SULFATE 325 MG TAB PO SCH ×2 (06:26→17:35)
[2022-06-09] MEDS: SODIUM CHLORIDE 0.9% 1,000 ML IV SCH (06:28)
[2022-06-09] MEDS: INSULIN ASPART (NovoLOG) 100 UNIT/ML VIAL SQ SCH ×4 (06:34→22:18)
[2022-06-09] MEDS ORDERED: IPRATROPIUM-ALBUTEROL 3 ML NEB INHALATION PRN (07:32)
--- NOTE | 2022-06-09 07:40 | P.PN ---
Subjective Progress Note Date: 06/09/22 Principal diagnosis: This 81-year-old female seen in consultation because of acute kidney injury and chronic kidney disease.Admission creatinine is 1.7, creatinine at baseline is about 1.4. Acute kidney injury is from low blood pressure. Additionally there was a suspicion that she has cardiorenal syndrome and congestive heart failure. She was given IV fluids. Started on sodium bicarb by mouth because of acidosis. No drop of blood pressure upon standing up and normal Orthostatic blood pressure and heart rate. Urine output last 24 hours 850 mL intake is not documented. She continues to have shortness of breath. She is on nasal cannula Today's labs are pending, creatinine yesterday was 1.7 He was seen previously by Dr. Kim on 10/01/2020 and had perhaps one dialysis at the time. She was admitted with generalized weakness. She fell and could not stand up with her walker. No loss of consciousness no dizziness. No nausea vomiting fever chills dysuria frequency does have mild cough. No changes in medication no history of taking any nonsteroidals. Currently she has a Zhang catheter Past history significant for diabetes for unknown number of years, hypertension and hyperlipidemia COPD and CHF Past surgical history cholecystectomy tonsillectomy right breast biopsy and laser surgery to the eyes Objective - Vital Signs Vital signs: Vital Signs Temp 97.7 F 06/09/22 02:00 Pulse 60 06/09/22 02:00 Resp 18 06/09/22 02:00 BP 127/57 06/09/22 02:00 Pulse Ox 95 06/09/22 02:00 FiO2 Intake & Output 06/08/22 06/09/22 06/09/22 18:59 06:59 18:59 Output Total 250 600 Balance -250 -600 Weight 103.419 kg Output: Urine 250 600 Other: Voiding Method Indwelling Catheter Examinations awake alert oriented comfortable on nasal cannula oxygen. She is sitting in a HEENT exam no JVP noted neck is supple no facial asymmetry Lungs significant for bilateral basal crackles Heart sounds unremarkable for rash abdomen soft obese protuberant her extremities 2+ edema Neurologically awake alert oriented - Labs CBC & Chem 7: 06/08/22 07:32 06/08/22 07:32 Labs: Abnormal Lab Results - Last 24 Hours (Table) 06/08/22 06/08/22 06/08/22 Range/Units 07:32 07:32 21:05 RBC 2.96 L (4.10-5.20) X 10*6/uL Hgb 7.9 L (12.0-15.0) g/dL Hct 27.5 L (37.2-46.3) % MCH 26.7 L (27.0-32.0) pg MCHC 28.7 L (32.0-37.0) g/dL RDW 15.4 H (11.5-14.5) % Chloride 115 H (96-109) mmol/L Carbon Dioxide 18.3 L (20.0-27.5) mmol/L Anion Gap 9.70 L (10.00-18.00) mmol/L BUN 43.6 H (9.0-27.0) mg/dL Creatinine 1.7 H (0.6-1.5) mg/dL Est GFR (CKD-EPI)AfAm 32.2 L (60.0-200.0) Est GFR (CKD-EPI)NonAf 27.8 L (60.0-200.0) BUN/Creatinine Ratio 25.65 H (12.00-20.00) Ratio POC Glucose (mg/dL) 122 H (70-110) mg/dL Calcium 8.5 L (8.7-10.3) mg/dL Assessment and Plan Assessment: Impression 1. Acute kidney injury from prerenal from low blood pressure. Was given IV fluids. Suspicion off Cardiorenal syndrome congestive heart failure. 2. Chronic kidney disease stage III with a baseline creatinine of about 1.4 with a benign urinalysis likely nephrosclerosis. 3. Diabetes mellitus type 2 with retinopathy 4. Generalized weakness. 5. Iron deficiency anemia saturation is 9% and hemoglobin is 8.8 6. Mild degree of non-gap acidosis from acute kidney injury and chronic kidney disease, bicarb is 18 gap is 9 7. Likely is congestive heart failure,LV function previously ejection fraction was 60% year ago in June 2021 Recommendation 1. Agree with discontinuation IV fluids and by mouth Lasix 40 mg by mouth daily 2. Repeat chest x-ray. Based on chest x-ray finding may need IV Lasix 3. Strict I's and O's 4. Start Ferlecit 125 IVPB X 3 doses 5. Monitor labs. 6.. Continue bicarb 1300 mg 3 times a day
[2022-06-09] MEDS: IPRATROPIUM-ALBUTEROL 3 ML NEB INHALATION SCH ×6 (07:49→21:28)
--- NOTE | 2022-06-09 08:26 | XR ---
EXAMINATION TYPE: XR chest 1V portable DATE OF EXAM: 06/09/2022 COMPARISON: 02/04/2022 HISTORY: Shortness of breath TECHNIQUE: Single frontal view of the chest is obtained. FINDINGS: Small bibasilar infiltrates consistent with atelectasis or chronic interstitial markings. Early interstitial pneumonia not excluded. Clinical correlation recommended. The graft the heart size normal. Vasculature is not appear congested. The osseous structures are intact IMPRESSION: Interstitial markings increased predominantly in the lung bases. Based on prior studies there is likely a chronic interstitial component but new atelectasis or early interstitial pneumonia in the lung bases not excluded. Clinical correlation recommended.
[2022-06-09] MEDS ORDERED: FUROSEMIDE 10 MG/ML 4 ML VIAL IV STA (08:30)
[2022-06-09] MEDS: FUROSEMIDE 40 MG TAB PO SCH ×2 (08:30→08:51)
[2022-06-09] MEDS: DOCUSATE 100 MG CAP PO SCH ×2 (08:51→22:17)
[2022-06-09] MEDS: ACETAMINOPHEN TAB 325 MG TAB PO PRN ×2 (08:51→13:45)
[2022-06-09] MEDS: PANTOPRAZOLE 40 MG/10 ML VIAL IVP SCH (08:52)
[2022-06-09] MEDS: SODIUM BICARBONATE TAB 650 MG TAB PO SCH ×4 (08:52→22:17)
[2022-06-09] MEDS: SODIUM FERRIC GLUCONAT-SUCROSE 125 MG in SODIUM CHLORIDE 0.9% 100 ML IVPB SCH (08:52)
[2022-06-09 09:30] LABS: Basophils # (A) 0.06 X 10*3/uL (0.00-0.10); Basophils % (A) 1.1 %; Eosinophils # (A) 0.27 X 10*3/uL (0.04-0.35); Eosinophils % (A) 5.2 %; HCT 29.8 % (37.2-46.3); HGB 8.6 g/dL (12.0-15.0); Immature Grans, Automated 0.8 %; Lymphocytes # (A) 1.07 X 10*3/uL (0.90-5.00); Lymphocytes % (A) 20.5 %; MCHC 28.9 g/dL (32.0-37.0); MCV 93.7 fL (80.0-97.0); Mean Platelet Volume 11.1 fL (9.5-12.2); Monocytes # (A) 0.57 X 10*3/uL (0.20-1.00); Monocytes % (A) 10.9 %; NRBC Per 100 WBC 0 /100 WBCS (0.0-0.0); Neutrophils # (A) 3.22 X 10*3/uL (1.80-7.70); Neutrophils % (A) 61.5 %; Platelet Count 239 X 10*3/uL (140-440); RBC 3.18 X 10*6/uL (4.10-5.20); RDW 15.7 % (11.5-14.5); WBC 5.23 X 10*3/uL (4.50-10.00)
[2022-06-09 09:42] LABS: African American GFR (CKD) 34.9 (60.0-200.0); Anion Gap 8.6 mmol/L (10.00-18.00); BUN/Creat Ratio 24.15 Ratio (12.00-20.00); Blood Urea Nitrogen 38.4 mg/dL (9.0-27.0); Calcium 8.6 mg/dL (8.7-10.3); Carbon Dioxide 18.6 mmol/L (20.0-27.5); Non-African American GFR(CKD) 30.1 (60.0-200.0); Potassium 4.5 mmol/L (3.5-5.5)
--- NOTE | 2022-06-09 09:50 | P.PN ---
Subjective This is a pleasant 81 years old female with multiple medical problems as below including diabetes mellitus and heart failure. She was in the hospital a few months ago for bilateral lower extremity weakness and bilateral lower extremity ulceration with edema. Presents today from shelter. Patient lying in bed very weak very lethargic, very pale looking. Not tachypneic. Patient fully awake and oriented, she is oriented to time place and person. She has insight into her problems. Patient states that she cannot stand up and feels very weak. Patient has loss of appetite over the last 3-4 days she was drinking well but she was located in the foot for the last 3-4 days, she was not feeling hungry. Patient also been complaining of from diarrhea. She has about 3-4 bowel movements a day for the last 3-4 days. But no abdominal pain. 06/08/2022 Patient today is sitting up in bed more awake and more strong however she is not back to baseline yet. Mentation At Baseline. She complains from left knee pain and tenderness and both legs especially of the right leg. vital looks stable and there is no orthostatic hypotension patient currently on normal saline 75 mL/h, may consider discontinuing or lower the dose soon given her advanced kidney disease. Yesterday overnight she became unresponsive on and off so strategic planner and neuro logist were consulted. Most likely her confusion related to her hypotension and other medical problems. She has chronic ulceration, nonhealing ulcers therefore we consulted infectious disease team for further recommendation. Active Medications Generic Name Dose Route Start Last Admin Trade Name Freq PRN Reason Stop Dose Admin Acetaminophen 650 mg 06/08/22 12:30 Acetaminophen Tab 325 Mg Tab PO Q4HR PRN Fever and/ or Pain Atorvastatin Calcium 40 mg 06/07/22 21:00 06/07/22 19:47 Atorvastatin 40 Mg Tab PO 40 mg HS CLYDE Administration Dextrose/Water 25 ml 06/07/22 18:28 Dextrose 50% Syringe 50 Ml IVP PER PROTOCOL PRN Hypoglycemia Protocol Dextrose/Water 50 ml 06/07/22 18:28 Dextrose 50% Syringe 50 Ml IVP PER PROTOCOL PRN Hypoglycemia Protocol Ferrous Sulfate 325 mg 06/08/22 08:30 06/08/22 08:36 Ferrous Sulfate 325 Mg Tab PO 325 mg BID-W/MEALS CLYDE Administration Sodium Chloride 1,000 mls @ 75 mls/hr 06/07/22 15:45 06/08/22 06:10 Saline 0.9% IV 100 mls/hr .[id number] CLYDE Administration Insulin Aspart 0 unit 06/07/22 21:00 06/08/22 06:08 Insulin Aspart (Novolog) 100 Unit/Ml Vial SQ Not Given ACHS [facility] Protocol Levothyroxine Sodium 100 mcg 06/08/22 06:30 06/08/22 06:09 Levothyroxine 100 Mcg Tab PO 100 mcg DAILY@0630 CLYDE Administration Naloxone HCl 0.2 mg 06/07/22 15:35 Naloxone 0.4 Mg/Ml 1 Ml Vial IV Q2M PRN Opioid Reversal Pantoprazole Sodium 40 mg 06/07/22 19:00 06/08/22 08:37 Pantoprazole 40 Mg/10 Ml Vial IVP 40 mg DAILY CLYDE Administration Sodium Bicarbonate 650 mg 06/08/22 09:00 06/08/22 08:37 Sodium Bicarbonate Tab 650 Mg Tab PO 650 mg QID CLYDE Administration Objective - Vital Signs Vital signs: Vital Signs Temp 97.5 F L 06/09/22 08:00 Pulse 65 06/09/22 08:00 Resp 18 06/09/22 08:00 BP 137/65 06/09/22 08:00 Pulse Ox 92 L 06/09/22 08:00 FiO2 Intake & Output 06/08/22 06/09/22 06/09/22 18:59 06:59 18:59 Output Total 250 600 Balance -250 -600 Weight 103.419 kg Output: Urine 250 600 Other: Voiding Method Indwelling Catheter Indwelling Catheter - Exam -GENERAL: The patient is alert and oriented x3, not in any acute distress. Obese. Very weak and lethargic HEENT: Pupils are round and equally reacting to light. EOMI. No scleral icterus. No conjunctival pallor. Normocephalic, atraumatic. No pharyngeal erythema. No thyromegaly. CARDIOVASCULAR: S1 and S2 present. No murmurs, rubs, or gallops. PULMONARY: Chest is clear to auscultation, no wheezing or crackles. ABDOMEN: Soft, nontender, nondistended, normoactive bowel sounds. No palpable organomegaly. -MUSCULOSKELETAL: No joint swelling or deformity. Sacral pressure ulcer -EXTREMITIES: No cyanosis, clubbing, or pedal edema. Monitor liver extremity ulcers with surrounding pinkish discoloration, with bilateral leg swelling, no overt cellulitis NEUROLOGICAL: Gross neurological examination did not reveal any focal deficits. SKIN: No rashes. no petechiae. - Labs CBC & Chem 7: 06/09/22 04:35 06/09/22 04:35 Labs: Abnormal Lab Results - Last 24 Hours (Table) 06/08/22 06/08/22 06/08/22 Range/Units 07:32 07:32 21:05 RBC 2.96 L (4.10-5.20) X 10*6/uL Hgb 7.9 L (12.0-15.0) g/dL Hct 27.5 L (37.2-46.3) % MCH 26.7 L (27.0-32.0) pg MCHC 28.7 L (32.0-37.0) g/dL RDW 15.4 H (11.5-14.5) % Chloride 115 H (96-109) mmol/L Carbon Dioxide 18.3 L (20.0-27.5) mmol/L Anion Gap 9.70 L (10.00-18.00) mmol/L BUN 43.6 H (9.0-27.0) mg/dL Creatinine 1.7 H (0.6-1.5) mg/dL Est GFR (CKD-EPI)AfAm 32.2 L (60.0-200.0) Est GFR (CKD-EPI)NonAf 27.8 L (60.0-200.0) BUN/Creatinine Ratio 25.65 H (12.00-20.00) Ratio Glucose (70-110) mg/dL POC Glucose (mg/dL) 122 H (70-110) mg/dL Calcium 8.5 L (8.7-10.3) mg/dL 06/09/22 06/09/22 Range/Units 04:35 04:35 RBC 3.18 L (4.10-5.20) X 10*6/uL Hgb 8.6 L (12.0-15.0) g/dL Hct 29.8 L (37.2-46.3) % MCH (27.0-32.0) pg MCHC 28.9 L (32.0-37.0) g/dL RDW 15.7 H (11.5-14.5) % Chloride 117 H (96-109) mmol/L Carbon Dioxide 18.6 L (20.0-27.5) mmol/L Anion Gap 8.60 L (10.00-18.00) mmol/L BUN 38.4 H (9.0-27.0) mg/dL Creatinine 1.6 H (0.6-1.5) mg/dL Est GFR (CKD-EPI)AfAm 34.9 L (60.0-200.0) Est GFR (CKD-EPI)NonAf 30.1 L (60.0-200.0) BUN/Creatinine Ratio 24.15 H (12.00-20.00) Ratio Glucose 111 H (70-110) mg/dL POC Glucose (mg/dL) (70-110) mg/dL Calcium 8.6 L (8.7-10.3) mg/dL Assessment and Plan Assessment: Diarrhea, possible gastroenteritis v, Possible reactive. Resolved and now pt is constipated Hypovolemia with hypotension, present on admission. Patient has history of hypertension, Improving Multiple Bilateral lower leg ulcers with surrounding edema and discoloration. less likely cellulitis of the lower extremities Lower back sacral pressure ulcer . stage III chronic dependent edema Worsening chronic kidney disease, stage III and possible early stage IV Chronic stasis ulcers Chronic heart failure Chronic anemia COPD without exacerbation Diabetes mellitus with hyperglycemia History of GERD Hyperlipidemia History of osteoarthritis Hypothyroidism Morbidly obese Plan: Discontinue IV hydration, start oral Lasix home dose start Colace hold blood pressure medication Continue with insulin check and sliding scale Infectious disease team consult for wound management Consult nephrology team for worsening kidney function, GFR is 27 on admission Patient looks very pale. monitor hemoglobin hemoglobin closely. Check occult blood in stool. Anemia workup Labs and medication were reviewed.. Continue same treatment. Continue with symptomatic treatment. Resume home medication. Monitor lytes and vitals. DVT and GI prophylaxis. Further recommendations as per clinical course of the patient DVT prophylaxis: Subcutaneous heparin GI Prophylaxis: Ppi PT/OT: Pending Prognosis is guarded Dr. Fleming will resume the care of the patient tomorrow
[2022-06-09 10:51] LABS: Glucose,Whole Blood 185 mg/dL (70-110)
[2022-06-09] MEDS: CYANOCOBALAMIN 500 MCG TAB PO SCH (11:32)
[2022-06-09] MEDS: FOLIC ACID 1 MG TAB PO SCH (11:33)
--- NOTE | 2022-06-09 13:32 | P.PN ---
Subjective HISTORY OF PRESENTING ILLNESS Patient is a pleasant 81-year-old female with history of hypertension, diabetes, chronic diastolic heart failure, aortic stenosis, pressure ulcers, debility. She states she does not follow with a hoister. She was last seen in the hospital November 2019 and last echocardiogram 05/2021 showed EF 60-65%, severely dilated left atrium, mild aortic stenosis, mild to moderate mitral stenosis, RVSP 49. Patient states she normally has helpers with rehab and physical therapy and was being helped to stand up by visiting nurse however start feeling weak and then fell down. There was some concern of loss of consciousness however patient states she did not lose consciousness and only felt lightheaded and then fell and felt like her legs gave out from under her. She usually does not do much walking. Initial blood pressure reading of 139/60 however repeat at 84/45. She denies any changes to her blood pressure medications. Denies any chest pain or pressure. No shortness breath. Hemoglobin initially 9.8 however downtrending to 7.9, no hematochezia or melena, bicarb 18, creatinine 1.7, hemoglobin A1c 7.8, troponin times 10.012. CT brain showed cerebral atrophy and chronic small vessel ischemia with no acute process. Carotid ultrasound showed 50-70% stenosis on the right and less than 50% on the left internal carotid artery. EKG shows sinus rhythm, normal axis, no significant ST or T-wave abnormalities. 06/09 Patient seen and examined. She did have some dyspnea earlier however somewhat improved with sitting up in her chair. No chest pain or pressure. Awaiting 2D echo PHYSICAL EXAMINATION Vital signs reviewed. CONSTITUTIONAL: No apparent distress, chronically ill appearing, obese, mildly pale HEENT: Head is normocephalic. Pupils are equal, round. Sclerae anicteric. Mucous membranes of the mouth are moist. No JVD. No carotid bruit. CHEST EXAMINATION: Lungs are clear to auscultation. No chest wall tenderness is noted on palpation or with deep breathing. HEART EXAMINATION: Regular rate and rhythm. S1, S2 heard. No murmurs, gallops or rub. ABDOMEN: Soft, nontender. Positive bowel sounds. EXTREMITIES: 2+ peripheral pulses, no lower extremity edema and no calf tenderness. NEUROLOGIC EXAMINATION: Patient is awake, alert and oriented x3. ASSESSMENT 1. Episode of unresponsiveness with fall. No clear-cut syncope and patient states her legs gave out from under her 2. Hypotensive episodes, may be related to over medicated with blood pressure medications versus rule out other sepsis versus other 3. Chronic kidney disease 4. Chronic diastolic heart failure, appears euvolemic 5. Aortic stenosis, mild by prior echo 6. DM2 7. 50-70% right internal carotid artery stenosis 8. Chronic debility PLAN Patient denied any actual syncope and mainly states felt lightheaded and legs g ave out from under her. She does have significant chronic debility. Patient was noted however to be hypotensive and we will decrease hypertensive medications, hold all BP meds for now and slowly add back as needed. Blood pressure still somewhat borderline 120s 130s with hypertension medications being held. Lasix added back Await 2D echo. Further recs to follow. Objective - Vital Signs Vital signs: Vital Signs Temp 97.5 F L 06/09/22 08:00 Pulse 60 06/09/22 11:25 Resp 18 06/09/22 08:00 BP 137/65 06/09/22 08:00 Pulse Ox 92 L 06/09/22 08:00 FiO2 Intake & Output 06/08/22 06/09/22 06/09/22 18:59 06:59 18:59 Output Total 250 600 Balance -250 -600 Weight 103.419 kg Output: Urine 250 600 Other: Voiding Method Indwelling Catheter Indwelling Catheter - Labs CBC & Chem 7: 06/09/22 04:35 06/09/22 04:35 Labs: Abnormal Lab Results - Last 24 Hours (Table) 06/08/22 06/08/22 06/09/22 Range/Units 07:32 21:05 04:35 RBC 3.18 L (4.10-5.20) X 10*6/uL Hgb 8.6 L (12.0-15.0) g/dL Hct 29.8 L (37.2-46.3) % MCHC 28.9 L (32.0-37.0) g/dL RDW 15.7 H (11.5-14.5) % Chloride 115 H (96-109) mmol/L Carbon Dioxide 18.3 L (20.0-27.5) mmol/L Anion Gap 9.70 L (10.00-18.00) mmol/L BUN 43.6 H (9.0-27.0) mg/dL Creatinine 1.7 H (0.6-1.5) mg/dL Est GFR (CKD-EPI)AfAm 32.2 L (60.0-200.0) Est GFR (CKD-EPI)NonAf 27.8 L (60.0-200.0) BUN/Creatinine Ratio 25.65 H (12.00-20.00) Ratio Glucose (70-110) mg/dL POC Glucose (mg/dL) 122 H (70-110) mg/dL Calcium 8.5 L (8.7-10.3) mg/dL 06/09/22 06/09/22 Range/Units 04:35 10:50 RBC (4.10-5.20) X 10*6/uL Hgb (12.0-15.0) g/dL Hct (37.2-46.3) % MCHC (32.0-37.0) g/dL RDW (11.5-14.5) % Chloride 117 H (96-109) mmol/L Carbon Dioxide 18.6 L (20.0-27.5) mmol/L Anion Gap 8.60 L (10.00-18.00) mmol/L BUN 38.4 H (9.0-27.0) mg/dL Creatinine 1.6 H (0.6-1.5) mg/dL Est GFR (CKD-EPI)AfAm 34.9 L (60.0-200.0) Est GFR (CKD-EPI)NonAf 30.1 L (60.0-200.0) BUN/Creatinine Ratio 24.15 H (12.00-20.00) Ratio Glucose 111 H (70-110) mg/dL POC Glucose (mg/dL) 185 H (70-110) mg/dL Calcium 8.6 L (8.7-10.3) mg/dL
--- NOTE | 2022-06-09 15:48 | P.PN ---
Subjective Progress Note Date: 06/09/22 Principal diagnosis: Multiple wounds Patient is a 81-year-old female with a past medical history significant for COPD diabetes mellitus hypertension hyperlipidemia heart failure with has been sent to the ER for evaluation of increasing weakness , patient was noticed to have a sacral and gluteal wounds from previous infectious disease consultation. On today's evaluation that is 06/09/2022, the patient is afebrile patient is currently breathing comfortably on 4 L nasal cannula, the denies any chest pain denies any worsening cough or sputum production no abdominal pain or any worsening pain to the back wound area Objective - Vital Signs Vital signs: Vital Signs Temp 97.5 F L 06/09/22 14:00 Pulse 60 06/09/22 14:00 Resp 17 06/09/22 14:00 BP 155/65 06/09/22 14:00 Pulse Ox 96 06/09/22 14:00 FiO2 Intake & Output 06/08/22 06/09/22 06/09/22 18:59 06:59 18:59 Output Total 250 600 800 Balance -250 -600 -800 Weight 103.419 kg Output: Urine 250 600 800 Other: Voiding Method Indwelling Catheter Indwelling Catheter - Exam GENERAL DESCRIPTION: An elderly female lying in bed in no distress RESPIRATORY SYSTEM: Unlabored breathing , decreased breath sounds at bases HEART: S1 S2 regular rate and rhythm , ABDOMEN: Soft , no tenderness EXTREMITIES: Diffuse swelling to the both legs no drainage - Labs CBC & Chem 7: 06/09/22 04:35 06/09/22 04:35 Labs: Abnormal Lab Results - Last 24 Hours (Table) 06/08/22 06/09/22 06/09/22 Range/Units 21:05 04:35 04:35 RBC 3.18 L (4.10-5.20) X 10*6/uL Hgb 8.6 L (12.0-15.0) g/dL Hct 29.8 L (37.2-46.3) % MCHC 28.9 L (32.0-37.0) g/dL RDW 15.7 H (11.5-14.5) % Chloride 117 H (96-109) mmol/L Carbon Dioxide 18.6 L (20.0-27.5) mmol/L Anion Gap 8.60 L (10.00-18.00) mmol/L BUN 38.4 H (9.0-27.0) mg/dL Creatinine 1.6 H (0.6-1.5) mg/dL Est GFR (CKD-EPI)AfAm 34.9 L (60.0-200.0) Est GFR (CKD-EPI)NonAf 30.1 L (60.0-200.0) BUN/Creatinine Ratio 24.15 H (12.00-20.00) Ratio Glucose 111 H (70-110) mg/dL POC Glucose (mg/dL) 122 H (70-110) mg/dL Calcium 8.6 L (8.7-10.3) mg/dL 06/09/22 Range/Units 10:50 RBC (4.10-5.20) X 10*6/uL Hgb (12.0-15.0) g/dL Hct (37.2-46.3) % MCHC (32.0-37.0) g/dL RDW (11.5-14.5) % Chloride (96-109) mmol/L Carbon Dioxide (20.0-27.5) mmol/L Anion Gap (10.00-18.00) mmol/L BUN (9.0-27.0) mg/dL Creatinine (0.6-1.5) mg/dL Est GFR (CKD-EPI)AfAm (60.0-200.0) Est GFR (CKD-EPI)NonAf (60.0-200.0) BUN/Creatinine Ratio (12.00-20.00) Ratio Glucose (70-110) mg/dL POC Glucose (mg/dL) 185 H (70-110) mg/dL Calcium (8.7-10.3) mg/dL Assessment and Plan (1) Nonhealing ulcer of left lower extremity with fat layer exposed Current Visit: No Status: Acute Code(s): L97.922 - NON-PRS CHR ULC UNSP PRT OF L LOW LEG W FAT LAYER EXPOSED SNOMED Code(s): 64933416 (2) Nonhealing ulcer of right lower extremity with fat layer exposed Current Visit: No Status: Acute Code(s): L97.912 - NON-PRS CHR ULC UNSP PRT OF R LOW LEG W FAT LAYER EXPOSED SNOMED Code(s): 40379587 (3) Pressure injury of coccygeal region, stage 2 Current Visit: No Status: Acute Code(s): L89.152 - PRESSURE ULCER OF SACRAL REGION, STAGE 2 SNOMED Code(s): 568108146 (4) Pressure ulcer of left buttock, stage 2 Current Visit: No Status: Acute Code(s): L89.322 - PRESSURE ULCER OF LEFT BUTTOCK, STAGE 2 SNOMED Code(s): 89008921248357523 Plan: 1patient did have a stage II pressure ulcer to the sacral and gluteal area with no slough tissue no surrounding redness we will recommend local wound care with the dry Aquacel silver dressing change daily 48-hour. 2patient did have a right lower extremity some swelling no significant redness open wound or any drainage advised compression dressing to keep the swelling down. 3patient with no fever or elevated white count clinically doubt infectious etiology hence we'll monitor the patient closely off antibiotic therapy at this point.
[2022-06-09 16:55] LABS: Glucose,Whole Blood 245 mg/dL (70-110)
[2022-06-09 21:23] LABS: Glucose,Whole Blood 269 mg/dL (70-110)
[2022-06-09] MEDS: ATORVASTATIN 40 MG TAB PO SCH (22:17)
[2022-06-10 06:09] LABS: Glucose,Whole Blood 135 mg/dL (70-110)
[2022-06-10] MEDS: INSULIN ASPART (NovoLOG) 100 UNIT/ML VIAL SQ SCH ×4 (06:12→22:08)
[2022-06-10] MEDS: LEVOTHYROXINE 100 MCG TAB PO SCH (06:27)
[2022-06-10] MEDS: FERROUS SULFATE 325 MG TAB PO SCH ×2 (06:27→17:13)
[2022-06-10] MEDS: IPRATROPIUM-ALBUTEROL 3 ML NEB INHALATION SCH ×4 (07:14→21:00)
[2022-06-10] MEDS: SODIUM FERRIC GLUCONAT-SUCROSE 125 MG in SODIUM CHLORIDE 0.9% 100 ML IVPB SCH (08:12)
[2022-06-10] MEDS: DOCUSATE 100 MG CAP PO SCH ×2 (08:12→22:08)
[2022-06-10] MEDS: CYANOCOBALAMIN 500 MCG TAB PO SCH (08:12)
[2022-06-10] MEDS: FOLIC ACID 1 MG TAB PO SCH (08:12)
[2022-06-10] MEDS: SODIUM BICARBONATE TAB 650 MG TAB PO SCH ×4 (08:12→22:08)
[2022-06-10 08:48] LABS: Chol/HDL Ratio 1.81 Ratio; LDL Cholesterol,Calculated 38.1 mg/dL (0.0-131.0); VLDL Calculation 15.64 mg/dL (5.00-40.00)
--- NOTE | 2022-06-10 09:14 | P.PN ---
Subjective HISTORY OF PRESENTING ILLNESS Patient is a pleasant 81-year-old female with history of hypertension, diabetes, chronic diastolic heart failure, aortic stenosis, pressure ulcers, debility. She states she does not follow with a executive secretary. She was last seen in the hospital November 2019 and last echocardiogram 05/2021 showed EF 60-65%, severely dilated left atrium, mild aortic stenosis, mild to moderate mitral stenosis, RVSP 49. Patient states she normally has helpers with rehab and physical therapy and was being helped to stand up by visiting nurse however start feeling weak and then fell down. There was some concern of loss of consciousness however patient states she did not lose consciousness and only felt lightheaded and then fell and felt like her legs gave out from under her. She usually does not do much walking. Initial blood pressure reading of 139/60 however repeat at 84/45. She denies any changes to her blood pressure medications. Denies any chest pain or pressure. No shortness breath. CT brain showed cerebral atrophy and chronic small vessel ischemia with no acute process. Carotid ultrasound showed 50-70% stenosis on the right and less than 50% on the left internal carotid artery. EKG shows sinus rhythm, normal axis, no significant ST or T-wave abnormalities. 06/10 Patient seen and examined, she has had increased shortness of breath over the past 24 hours, increased LE edema as well. No chest pain or pressure. Awaiting 2D echo. Her BP meds have been held secondary to hypotension. Blood pressure 120/59, heart rate 60. PHYSICAL EXAMINATION Vital signs reviewed. CONSTITUTIONAL: No apparent distress, chronically ill appearing, obese, mildly pale HEENT: Head is normocephalic. Pupils are equal, round. Sclerae anicteric. Mucous membranes of the mouth are moist. No JVD. CHEST EXAMINATION: Lungs are crackles in the bases bilaterally to auscultation. No chest wall tenderness is noted on palpation or with deep breathing. HEART EXAMINATION: Regular rate and rhythm. S1, S2 heard. No murmurs, gallops or rub. ABDOMEN: Soft, nontender. Positive bowel sounds. EXTREMITIES: 2+ peripheral pulses, 3+ bilateral lower extremity edema and no calf tenderness. NEUROLOGIC EXAMINATION: Patient is awake, alert and oriented x3. ASSESSMENT Episode of unresponsiveness with fall. No clear-cut syncope and patient states her legs gave out from under her Hypotensive episodes, may be related to over medicated with blood pressure medications versus rule out other sepsis versus other Acute on chronic heart failure with preserved ejection fraction Chronic kidney disease Aortic stenosis, mild by prior echo DM2 50-70% right internal carotid artery stenosis Chronic debility PLAN Patient appears to be acute heart failure on exam, will start IV Lasix 40mg daily Monitor I/Os daily weights, renal function and electrolytes Patient denied any actual syncope and mainly states felt lightheaded and legs gave out from under her. She does have significant chronic debility. Patient was noted however to be hypotensive and we will decrease hypertensive medications, hold all BP meds for now and slowly add back as needed. Await 2D echo. Further recs to follow. Nurse practitioner note has been reviewed by physician. Signing provider agrees with the documented findings, assessment, and plan of care. Objective - Vital Signs Vital signs: Vital Signs Temp 97.7 F 06/10/22 08:00 Pulse 71 06/10/22 08:00 Resp 17 06/10/22 08:00 BP 167/68 06/10/22 08:00 Pulse Ox 95 06/10/22 08:00 FiO2 Intake & Output 06/09/22 06/10/22 06/10/22 18:59 06:59 18:59 Output Total 800 850 Balance -800 -850 Output: Urine 800 850 Other: Voiding Method Indwelling Catheter Indwelling Catheter Indwelling Catheter - Labs CBC & Chem 7: 06/09/22 04:35 06/09/22 04:35 Labs: Abnormal Lab Results - Last 24 Hours (Table) 06/09/22 06/09/22 06/09/22 Range/Units 04:35 04:35 10:50 RBC 3.18 L (4.10-5.20) X 10*6/uL Hgb 8.6 L (12.0-15.0) g/dL Hct 29.8 L (37.2-46.3) % MCHC 28.9 L (32.0-37.0) g/dL RDW 15.7 H (11.5-14.5) % Chloride 117 H (96-109) mmol/L Carbon Dioxide 18.6 L (20.0-27.5) mmol/L Anion Gap 8.60 L (10.00-18.00) mmol/L BUN 38.4 H (9.0-27.0) mg/dL Creatinine 1.6 H (0.6-1.5) mg/dL Est GFR (CKD-EPI)AfAm 34.9 L (60.0-200.0) Est GFR (CKD-EPI)NonAf 30.1 L (60.0-200.0) BUN/Creatinine Ratio 24.15 H (12.00-20.00) Ratio Glucose 111 H (70-110) mg/dL POC Glucose (mg/dL) 185 H (70-110) mg/dL Calcium 8.6 L (8.7-10.3) mg/dL HDL Cholesterol (40.00-60.00) mg/dL 06/09/22 06/09/22 06/10/22 Range/Units 16:52 21:22 04:43 RBC (4.10-5.20) X 10*6/uL Hgb (12.0-15.0) g/dL Hct (37.2-46.3) % MCHC (32.0-37.0) g/dL RDW (11.5-14.5) % Chloride (96-109) mmol/L Carbon Dioxide (20.0-27.5) mmol/L Anion Gap (10.00-18.00) mmol/L BUN (9.0-27.0) mg/dL Creatinine (0.6-1.5) mg/dL Est GFR (CKD-EPI)AfAm (60.0-200.0) Est GFR (CKD-EPI)NonAf (60.0-200.0) BUN/Creatinine Ratio (12.00-20.00) Ratio Glucose (70-110) mg/dL POC Glucose (mg/dL) 245 H 269 H (70-110) mg/dL Calcium (8.7-10.3) mg/dL HDL Cholesterol 66.30 H (40.00-60.00) mg/dL 06/10/22 Range/Units 06:08 RBC (4.10-5.20) X 10*6/uL Hgb (12.0-15.0) g/dL Hct (37.2-46.3) % MCHC (32.0-37.0) g/dL RDW (11.5-14.5) % Chloride (96-109) mmol/L Carbon Dioxide (20.0-27.5) mmol/L Anion Gap (10.00-18.00) mmol/L BUN (9.0-27.0) mg/dL Creatinine (0.6-1.5) mg/dL Est GFR (CKD-EPI)AfAm (60.0-200.0) Est GFR (CKD-EPI)NonAf (60.0-200.0) BUN/Creatinine Ratio (12.00-20.00) Ratio Glucose (70-110) mg/dL POC Glucose (mg/dL) 135 H (70-110) mg/dL Calcium (8.7-10.3) mg/dL HDL Cholesterol (40.00-60.00) mg/dL
[2022-06-10] MEDS ORDERED: NON FORMULARY DRUG (Acetaminophen [Tylenol Arthritis] 650 MG Tablet) PO PRN (10:37)
[2022-06-10 11:49] LABS: Glucose,Whole Blood 222 mg/dL (70-110)
[2022-06-10] MEDS: FUROSEMIDE 10 MG/ML 4 ML VIAL IV SCH (11:54)
[2022-06-10] MEDS: PANTOPRAZOLE 40 MG/10 ML VIAL IVP SCH (11:54)
--- NOTE | 2022-06-10 12:13 | P.PN ---
Subjective Patient is seen for follow-up for acute kidney injury and top of chronic kidney disease. Blood pressure was low on initial admission. Currently being diuresed for volume overload. Serum creatinine staying at about 1.7-1.6 mg/dL. Patient has significant lower extremity edema. Her legs are currently wrapped. Sitting on a bedside chair today. Lasix is at 40 mg IV daily Urine output documented at 1.65 L for 24 hours. Currently with indwelling Zhang catheter. Objective - Vital Signs Vital signs: Vital Signs Temp 97.7 F 06/10/22 08:00 Pulse 72 06/10/22 11:12 Resp 17 06/10/22 08:00 BP 167/68 06/10/22 08:00 Pulse Ox 95 06/10/22 08:00 FiO2 Intake & Output 06/09/22 06/10/22 06/10/22 18:59 06:59 18:59 Output Total 800 850 Balance -800 -850 Output: Urine 800 850 Other: Voiding Method Indwelling Catheter Indwelling Catheter Indwelling Catheter - Exam Awake, comfortable, no acute distress Examination of the heart S1 and S2 Examination lungs decreased breath sounds at the bases Abdomen is soft Examination lower extremity shows significant edema bilaterally worse on the left leg. Both legs are wrapped - Labs CBC & Chem 7: 06/09/22 04:35 06/09/22 04:35 Labs: Abnormal Lab Results - Last 24 Hours (Table) 06/09/22 06/09/22 06/10/22 Range/Units 16:52 21:22 04:43 POC Glucose (mg/dL) 245 H 269 H (70-110) mg/dL HDL Cholesterol 66.30 H (40.00-60.00) mg/dL 06/10/22 06/10/22 Range/Units 06:08 11:48 POC Glucose (mg/dL) 135 H 222 H (70-110) mg/dL HDL Cholesterol (40.00-60.00) mg/dL Assessment and Plan Assessment: 1. Acute kidney injury currently nonoliguric associated with low blood pressures as well as cardiorenal syndrome. Currently being diuresed. Patient received IV fluids on initial admission. 2. Chronic kidney disease NKF stage III Baseline creatinine about 1.4 etiology is nephrosclerosis. UA was benign 3. Type 2 diabetes with retinopathy 4. Anemia with evidence of iron deficiency receiving IV iron 5. Volume overload 6. Metabolic acidosis maintained on oral sodium bicarb Plan: Continue with IV Lasix. May need to increase to twice a day Check labs today and then again in a.m. Continue with IV iron for 3 doses
[2022-06-10] MEDS: amLODIPine 5 MG TAB PO SCH (12:22)
[2022-06-10] MEDS: SACUBITRIL/VALSARTAN 24 MG-26 MG TABLET PO SCH ×2 (12:22→22:08)
[2022-06-10 16:31] LABS: Glucose,Whole Blood 99 mg/dL (70-110)
[2022-06-10] MEDS: carvediloL 6.25 MG TAB PO SCH (17:13)
[2022-06-10 20:58] LABS: Glucose,Whole Blood 183 mg/dL (70-110)
[2022-06-10] MEDS: ATORVASTATIN 40 MG TAB PO SCH (22:08)
[2022-06-10] MEDS: INSULN ASP PRT/INSULIN ASPART 100 UNIT/ML 10 ML VIAL SQ SCH (22:09)
--- NOTE | 2022-06-10 22:35 | PN ---
PROGRESS NOTE DATE OF SERVICE: 06/10/2022 CHIEF COMPLAINT: Dehydration, hypotension, venous stasis disease with cellulitis and ulcers. HISTORY OF PRESENT ILLNESS: This lady is still very weak. She generally is weak and when she is at home does not move about at all. She is awake and alert. REVIEW OF SYSTEMS: She denies chest pain, abdominal pain, shortness of breath, etc. PHYSICAL EXAMINATION: GENERAL: She is pale. She is chronically ill in appearance. CHEST: Clear with shallow breath sounds. CARDIAC: Normal with sinus rhythm. ABDOMEN: Soft. EXTREMITIES: Lower extremities are dressed. IMPRESSION: 1. Generalized weakness and debility. 2. Dehydration. 3. Failure to thrive. 4. Chronic kidney disease, stage 4. PLAN: 1. Continue with IV fluids. 2. Look into discharge plan. 3. She will have to go back to rehab. FAHAD / ARNALDO: [id number] /
[2022-06-11 01:01] LABS: African American GFR (CKD) 37.5 (60.0-200.0); Anion Gap 14.4 mmol/L (10.00-18.00); BUN/Creat Ratio 25.13 Ratio (12.00-20.00); Blood Urea Nitrogen 37.7 mg/dL (9.0-27.0); Calcium 8.7 mg/dL (8.7-10.3); Carbon Dioxide 15.6 mmol/L (20.0-27.5); Non-African American GFR(CKD) 32.3 (60.0-200.0); Potassium 4.5 mmol/L (3.5-5.5)
[2022-06-11 04:22] LABS: African American GFR (CKD) 39 (>60 ml/min/1.73 sqM); Anion Gap 1 mmol/L; Blood Urea Nitrogen 35 mg/dL (7-17); Calcium 8.7 mg/dL (8.4-10.2); Carbon Dioxide 26 mmol/L (22-30); Chloride 115 mmol/L (98-107); Glucose 100 mg/dL (74-99); Non-African American GFR(CKD) 34 (>60 ml/min/1.73 sqM); Potassium 5.3 mmol/L (3.5-5.1); Sodium 142 mmol/L (137-145)
[2022-06-11 06:16] LABS: Glucose,Whole Blood 113 mg/dL (70-110)
[2022-06-11] MEDS: INSULIN ASPART (NovoLOG) 100 UNIT/ML VIAL SQ SCH ×4 (06:42→20:17)
[2022-06-11] MEDS: carvediloL 6.25 MG TAB PO SCH ×2 (07:03→17:03)
[2022-06-11] MEDS: FERROUS SULFATE 325 MG TAB PO SCH ×2 (07:03→17:03)
[2022-06-11] MEDS: LEVOTHYROXINE 100 MCG TAB PO SCH (07:03)
[2022-06-11] MEDS: IPRATROPIUM-ALBUTEROL 3 ML NEB INHALATION SCH ×4 (08:23→21:10)
[2022-06-11] MEDS: PANTOPRAZOLE 40 MG/10 ML VIAL IVP SCH (08:54)
[2022-06-11] MEDS: SODIUM FERRIC GLUCONAT-SUCROSE 125 MG in SODIUM CHLORIDE 0.9% 100 ML IVPB SCH (08:54)
[2022-06-11] MEDS: amLODIPine 5 MG TAB PO SCH (08:55)
[2022-06-11] MEDS: SODIUM BICARBONATE TAB 650 MG TAB PO SCH ×4 (08:55→21:58)
[2022-06-11] MEDS: CYANOCOBALAMIN 500 MCG TAB PO SCH (08:55)
[2022-06-11] MEDS: FUROSEMIDE 10 MG/ML 4 ML VIAL IV SCH (08:55)
[2022-06-11] MEDS: DOCUSATE 100 MG CAP PO SCH ×2 (08:55→21:58)
[2022-06-11] MEDS: SACUBITRIL/VALSARTAN 24 MG-26 MG TABLET PO SCH ×2 (08:55→21:58)
[2022-06-11] MEDS: FOLIC ACID 1 MG TAB PO SCH (08:55)
[2022-06-11] MEDS: INSULN ASP PRT/INSULIN ASPART 100 UNIT/ML 10 ML VIAL SQ SCH ×2 (09:04→21:58)
--- NOTE | 2022-06-11 09:40 | P.PN ---
Subjective Progress Note Date: 06/10/22 Patient is sitting in the recliner, appears to be having shortness of breath. Patient states that she cannot breathe. She has touch of pneumonia and a lot of phlegm. No further fainting spells. Objective - Vital Signs Vital signs: Vital Signs Temp 97.7 F 06/10/22 08:00 Pulse 68 06/10/22 16:21 Resp 17 06/10/22 14:00 BP 130/73 06/10/22 14:00 Pulse Ox 99 06/10/22 16:10 FiO2 Intake & Output 06/09/22 06/10/22 06/10/22 18:59 06:59 18:59 Output Total 800 850 Balance -800 -850 Output: Urine 800 850 Other: Voiding Method Indwelling Catheter Indwelling Catheter Indwelling Catheter - Exam Patient's mentation is normal. Examination is unchanged. Patient appears short of breath. - Labs CBC & Chem 7: 06/09/22 04:35 06/11/22 03:35 Labs: Abnormal Lab Results - Last 24 Hours (Table) 06/09/22 06/09/22 06/10/22 Range/Units 16:52 21:22 04:43 POC Glucose (mg/dL) 245 H 269 H (70-110) mg/dL HDL Cholesterol 66.30 H (40.00-60.00) mg/dL 06/10/22 06/10/22 Range/Units 06:08 11:48 POC Glucose (mg/dL) 135 H 222 H (70-110) mg/dL HDL Cholesterol (40.00-60.00) mg/dL Assessment and Plan Assessment: * Near syncope, with episode of some unresponsiveness, likely vasovagal. * Right carotid bruit, moderate right ICA stenosis. * End-stage renal disease on hemodialysis * Severe peripheral edema * Possible peripheral neuropathy * Diabetes * Mild B12 and folate deficiency Plan: * Carotid Doppler revealed moderate right ICA stenosis 50-70%. There is less than 50% stenosis of both common carotid arteries. Less than 50% stenosis in the left ICA. Vertebral arteries were not able to be visualized. * Suggest repeat carotid Doppler in 6 months to a year for a follow-up. * Suggest starting aspirin 81 mg if no medical contraindications. * Lipid panel with cholesterol 120, LDL 38, HDL 66 and triglycerides 78. Continue Lipitor 40 mg daily. * Hemoglobin A1c 7.8 on 06/07/2022. * B12 405, folate 9.10. We will start B12, folate replacement. Hopefully will help with possible peripheral neuropathy. Recommend optimize contorting of diabetes, as per IM. * Medical management as per IM and other specialties. Neurologically clear.
--- NOTE | 2022-06-11 11:06 | P.PN ---
Subjective HISTORY OF PRESENTING ILLNESS Patient is a pleasant 81-year-old female with history of hypertension, diabetes, chronic diastolic heart failure, aortic stenosis, pressure ulcers, debility. 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 She was last seen in the hospital November 2019 and last echocardiogram 05/2021 showed EF 60-65%, severely dilated left atrium, mild aortic stenosis, mild to moderate mitral stenosis, RVSP 49. Patient states she normally has helpers with rehab and physical therapy and was being helped to stand up by visiting nurse however start feeling weak and then fell down. There was some concern of loss of consciousness however patient states she did not lose consciousness and only felt lightheaded and then fell and felt like her legs gave out from under her. She usually does not do much walking. Initial blood pressure reading of 139/60 however repeat at 84/45. She denies any changes to her blood pressure medications. Denies any chest pain or pressure. No shortness breath. CT brain showed cerebral atrophy and chronic small vessel ischemia with no acute process. Carotid ultrasound showed 50-70% stenosis on the right and less than 50% on the left internal carotid artery. EKG shows sinus rhythm, normal axis, no significant ST or T-wave abnormalities. 06/11 Patient seen and examined, she was found to be in acute heart failure yesterday, She was started on IV Lasix. She continues to be short of breath, but slightly improved from yesterday. Continues to have significant LE edema as well. No chest pain or pressure. Awaiting 2D echo. Her BP meds have been held secondary to hypotension. Blood pressure has improved to 144/64. HR 60. Entresto 24-26mg BID, Amlodipine 5mg daily and carvedilol 6.25mg BID has been restarted by primary. Patient with -2.5L fluid balance over the past 24 hours PHYSICAL EXAMINATION Vital signs reviewed. CONSTITUTIONAL: No apparent distress, chronically ill appearing, obese, mildly pale HEENT: Head is normocephalic. No JVD. CHEST EXAMINATION: Lungs are mild crackles in the bases bilaterally to auscultation. No chest wall tenderness is noted on palpation or with deep breathing. HEART EXAMINATION: Regular rate and rhythm. S1, S2 heard. No murmurs, gallops or rub. ABDOMEN: Soft, nontender. Positive bowel sounds. EXTREMITIES: 2+ peripheral pulses, 3+ LLE > RLE bilateral lower extremity edema and no calf tenderness. NEUROLOGIC EXAMINATION: Patient is awake, alert and oriented x3. ASSESSMENT Episode of unresponsiveness with fall. No clear-cut syncope and patient states her legs gave out from under her, Patient denied any actual syncope. Hypotensive episodes, may be related to over medicated with blood pressure medications versus rule out other sepsis versus other Acute on chronic heart failure with preserved ejection fraction Chronic kidney disease Aortic stenosis, mild by prior echo DM2 50-70% right internal carotid artery stenosis Chronic debility PLAN Continue IV Lasix, increased 40mg BID for 24 hours. Monitor I/Os daily weights, renal function and electrolytes Monitor BP and potassium with restarting cardiac medications Await 2D echo. Further recommendations based on clinical course Nurse practitioner note has been reviewed by physician. Signing provider agrees with the documented findings, assessment, and plan of care. Objective - Vital Signs Vital signs: Vital Signs Temp 98.0 F 06/11/22 08:00 Pulse 63 06/11/22 08:37 Resp 16 06/11/22 08:00 BP 144/64 06/11/22 08:00 Pulse Ox 96 06/11/22 08:23 FiO2 Intake & Output 06/10/22 06/11/22 06/11/22 18:59 06:59 18:59 Output Total 2000 550 Balance -2000 -550 Output: Urine 1999 550 Stool 0 Other: Voiding Method Indwelling Catheter Indwelling Catheter Indwelling Catheter - Labs CBC & Chem 7: 06/09/22 04:35 06/11/22 03:35 Labs: Abnormal Lab Results - Last 24 Hours (Table) 06/10/22 06/10/22 06/10/22 Range/Units 04:43 11:48 20:57 Potassium (3.5-5.1) mmol/L Chloride 111 H (96-109) mmol/L Carbon Dioxide 15.6 L (20.0-27.5) mmol/L BUN 37.7 H (9.0-27.0) mg/dL Creatinine (0.52-1.04) mg/dL Est GFR (CKD-EPI)AfAm 37.5 L (60.0-200.0) Est GFR (CKD-EPI)NonAf 32.3 L (60.0-200.0) BUN/Creatinine Ratio 25.13 H (12.00-20.00) Ratio Glucose 115 H (70-110) mg/dL POC Glucose (mg/dL) 222 H 183 H (70-110) mg/dL 06/11/22 06/11/22 Range/Units 03:35 06:14 Potassium 5.3 H (3.5-5.1) mmol/L Chloride 115 H (96-109) mmol/L Carbon Dioxide (20.0-27.5) mmol/L BUN 35 H (9.0-27.0) mg/dL Creatinine 1.44 H (0.52-1.04) mg/dL Est GFR (CKD-EPI)AfAm (60.0-200.0) Est GFR (CKD-EPI)NonAf (60.0-200.0) BUN/Creatinine Ratio (12.00-20.00) Ratio Glucose 100 H (70-110) mg/dL POC Glucose (mg/dL) 113 H (70-110) mg/dL
[2022-06-11 11:20] LABS: Glucose,Whole Blood 35 mg/dL (70-110)
[2022-06-11 11:30] LABS: Glucose,Whole Blood 40 mg/dL (70-110)
--- NOTE | 2022-06-11 11:36 | P.PN ---
Subjective Patient is seen for follow-up for acute kidney injury and top of chronic kidney disease. Blood pressure was low on initial admission. Currently being diuresed for volume overload. Serum creatinine staying at about 1.7-1.6 mg/dL. down to 1.4 today Patient has significant lower extremity edema. Her legs are currently wrapped. Sitting on a bedside chair today. Lasix is increased to every 12 hours Urine output documented at 2 L for 24 hours. Currently with indwelling Zhang catheter. Objective - Vital Signs Vital signs: Vital Signs Temp 98.0 F 06/11/22 08:00 Pulse 63 06/11/22 08:37 Resp 16 06/11/22 08:00 BP 144/64 06/11/22 08:00 Pulse Ox 96 06/11/22 08:23 FiO2 Intake & Output 06/10/22 06/11/22 06/11/22 18:59 06:59 18:59 Output Total 2000 550 Balance -2000 -550 Output: Urine 2000 550 Stool 0 Other: Voiding Method Indwelling Catheter Indwelling Catheter Indwelling Catheter - Exam Awake, comfortable, no acute distress Examination of the heart S1 and S2 Examination lungs decreased breath sounds at the bases Abdomen is soft Examination lower extremity shows significant edema bilaterally worse on the left leg. Both legs are wrapped - Labs CBC & Chem 7: 06/09/22 04:35 06/11/22 03:35 Labs: Abnormal Lab Results - Last 24 Hours (Table) 06/10/22 06/10/22 06/10/22 Range/Units 04:43 11:48 20:57 Potassium (3.5-5.1) mmol/L Chloride 111 H (96-109) mmol/L Carbon Dioxide 15.6 L (20.0-27.5) mmol/L BUN 37.7 H (9.0-27.0) mg/dL Creatinine (0.52-1.04) mg/dL Est GFR (CKD-EPI)AfAm 37.5 L (60.0-200.0) Est GFR (CKD-EPI)NonAf 32.3 L (60.0-200.0) BUN/Creatinine Ratio 25.13 H (12.00-20.00) Ratio Glucose 115 H (70-110) mg/dL POC Glucose (mg/dL) 222 H 183 H (70-110) mg/dL 11/06/11/22 06/11/22 Range/Units 03:35 06:14 11:15 Potassium 5.3 H (3.5-5.1) mmol/L Chloride 115 H (96-109) mmol/L Carbon Dioxide (20.0-27.5) mmol/L BUN 35 H (9.0-27.0) mg/dL Creatinine 1.44 H (0.52-1.04) mg/dL Est GFR (CKD-EPI)AfAm (60.0-200.0) Est GFR (CKD-EPI)NonAf (60.0-200.0) BUN/Creatinine Ratio (12.00-20.00) Ratio Glucose 100 H (70-110) mg/dL POC Glucose (mg/dL) 113 H 35 L (70-110) mg/dL 06/11/22 Range/Units 11:29 Potassium (3.5-5.1) mmol/L Chloride (96-109) mmol/L Carbon Dioxide (20.0-27.5) mmol/L BUN (9.0-27.0) mg/dL Creatinine (0.52-1.04) mg/dL Est GFR (CKD-EPI)AfAm (60.0-200.0) Est GFR (CKD-EPI)NonAf (60.0-200.0) BUN/Creatinine Ratio (12.00-20.00) Ratio Glucose (70-110) mg/dL POC Glucose (mg/dL) 40 L (70-110) mg/dL Assessment and Plan Assessment: 1. Acute kidney injury currently nonoliguric associated with low blood pressures as well as cardiorenal syndrome. Currently being diuresed. Patient received IV fluids on initial admission. 2. Chronic kidney disease NKF stage III Baseline creatinine about 1.4 etiology is nephrosclerosis. UA was benign 3. Type 2 diabetes with retinopathy 4. Anemia with evidence of iron deficiency receiving IV iron 5. Volume overload 6. Metabolic acidosis maintained on oral sodium bicarb Plan: Agree with increasing Lasix to twice a day Continue with IV iron for 3 doses Repeat labs in a.m.
[2022-06-11 11:45] LABS: Glucose,Whole Blood 60 mg/dL (70-110)
[2022-06-11 12:12] LABS: Glucose,Whole Blood 66 mg/dL (70-110)
[2022-06-11 12:16] LABS: Glucose,Whole Blood 78 mg/dL (70-110)
[2022-06-11 16:38] LABS: Glucose,Whole Blood 99 mg/dL (70-110)
[2022-06-11 19:14] LABS: Glucose,Whole Blood 140 mg/dL (70-110)
[2022-06-11] MEDS ORDERED: FUROSEMIDE 10 MG/ML 4 ML VIAL IV SCH (21:00)
[2022-06-11] MEDS: ATORVASTATIN 40 MG TAB PO SCH (21:58)
--- NOTE | 2022-06-12 02:28 | PN ---
PROGRESS NOTE CHIEF COMPLAINT: Hypotension, dehydration, weakness. HISTORY OF PRESENT ILLNESS: This lady is experiencing some shortness of breath. She has had no chest pain. She has had no fever or chills. PHYSICAL EXAMINATION: GENERAL: She is slightly pale. NECK: Neck veins are not distended. CHEST: Clear. There are no rales or rhonchi. CARDIAC: Demonstrated sinus rhythm and there are no murmurs. ABDOMEN: Soft, nontender. EXTREMITIES: Same with stasis dermatitis, ulcers, and cellulitis. PLAN: 1. Continue with rehydration. 2. Repeat laboratory studies if she continues to have difficulty with shortness of breath. MMODL / IJN: [id number] /
[2022-06-12] MEDS: LEVOTHYROXINE 100 MCG TAB PO SCH (05:14)
[2022-06-12 05:52] LABS: Glucose,Whole Blood 106 mg/dL (70-110)
[2022-06-12] MEDS: INSULIN ASPART (NovoLOG) 100 UNIT/ML VIAL SQ SCH ×4 (06:41→21:33)
[2022-06-12] MEDS: FERROUS SULFATE 325 MG TAB PO SCH ×2 (06:43→17:34)
[2022-06-12] MEDS: carvediloL 6.25 MG TAB PO SCH ×2 (06:43→17:34)
[2022-06-12] MEDS: DOCUSATE 100 MG CAP PO SCH ×2 (07:07→21:33)
[2022-06-12] MEDS: amLODIPine 5 MG TAB PO SCH (07:07)
[2022-06-12] MEDS: CYANOCOBALAMIN 500 MCG TAB PO SCH (07:07)
[2022-06-12] MEDS: SACUBITRIL/VALSARTAN 24 MG-26 MG TABLET PO SCH ×2 (07:07→21:33)
[2022-06-12] MEDS: FOLIC ACID 1 MG TAB PO SCH (07:08)
[2022-06-12] MEDS: SODIUM BICARBONATE TAB 650 MG TAB PO SCH ×4 (07:08→21:33)
[2022-06-12 07:28] LABS: Glucose,Whole Blood 104 mg/dL (70-110)
[2022-06-12] MEDS: INSULN ASP PRT/INSULIN ASPART 100 UNIT/ML 10 ML VIAL SQ SCH ×2 (07:38→21:33)
[2022-06-12] MEDS: PANTOPRAZOLE 40 MG/10 ML VIAL IVP SCH (08:13)
[2022-06-12] MEDS: IPRATROPIUM-ALBUTEROL 3 ML NEB INHALATION SCH ×4 (08:31→19:50)
--- NOTE | 2022-06-12 08:53 | P.PN ---
Subjective Progress Note Date: 06/11/22 Patient is sitting in the recliner, appears to be having shortness of breath. Patient states that she cannot breathe, although appears better than yesterday. No further fainting spells. Objective - Vital Signs Vital signs: Vital Signs Temp 97.4 F L 06/11/22 14:27 Pulse 62 06/11/22 15:52 Resp 18 06/11/22 14:27 BP 121/50 06/11/22 14:27 Pulse Ox 95 06/11/22 14:27 FiO2 Intake & Output 06/10/22 06/11/22 06/11/22 18:59 06:59 18:59 Output Total 1999 550 Balance -1999 - Weight 103.419 kg Output: Urine 1999 550 Stool 0 Other: Voiding Method Indwelling Catheter Indwelling Catheter Indwelling Catheter - Exam Patient's mentation is normal. Examination is unchanged. Patient appears short of breath. Patient continues to have significant swelling of the lower extremities, with some papular rash. - Labs CBC & Chem 7: 06/09/22 04:35 06/11/22 03:35 Labs: Abnormal Lab Results - Last 24 Hours (Table) 06/10/22 06/10/22 06/11/22 Range/Units 04:43 20:57 03:35 Potassium 5.3 H (3.5-5.1) mmol/L Chloride 111 H 115 H (96-109) mmol/L Carbon Dioxide 15.6 L (20.0-27.5) mmol/L BUN 37.7 H 35 H (9.0-27.0) mg/dL Creatinine 1.44 H (0.52-1.04) mg/dL Est GFR (CKD-EPI)AfAm 37.5 L (60.0-200.0) Est GFR (CKD-EPI)NonAf 32.3 L (60.0-200.0) BUN/Creatinine Ratio 25.13 H (12.00-20.00) Ratio Glucose 115 H 100 H (70-110) mg/dL POC Glucose (mg/dL) 183 H (70-110) mg/dL 06/11/22 06/11/22 06/11/22 Range/Units 06:14 11:15 11:29 Potassium (3.5-5.1) mmol/L Chloride (96-109) mmol/L Carbon Dioxide (20.0-27.5) mmol/L BUN (9.0-27.0) mg/dL Creatinine (0.52-1.04) mg/dL Est GFR (CKD-EPI)AfAm (60.0-200.0) Est GFR (CKD-EPI)NonAf (60.0-200.0) BUN/Creatinine Ratio (12.00-20.00) Ratio Glucose (70-110) mg/dL POC Glucose (mg/dL) 113 H 35 L 40 L (70-110) mg/dL 06/11/22 06/11/22 Range/Units 11:43 12:01 Potassium (3.5-5.1) mmol/L Chloride (96-109) mmol/L Carbon Dioxide (20.0-27.5) mmol/L BUN (9.0-27.0) mg/dL Creatinine (0.52-1.04) mg/dL Est GFR (CKD-EPI)AfAm (60.0-200.0) Est GFR (CKD-EPI)NonAf (60.0-200.0) BUN/Creatinine Ratio (12.00-20.00) Ratio Glucose (70-110) mg/dL POC Glucose (mg/dL) 60 L 66 L (70-110) mg/dL Assessment and Plan Assessment: * Near syncope, with episode of some unresponsiveness, likely vasovagal. * Right carotid bruit, moderate right ICA stenosis. * End-stage renal disease on hemodialysis * Severe peripheral edema * Possible peripheral neuropathy * Diabetes * Mild B12 and folate deficiency Plan: * Carotid Doppler revealed moderate right ICA stenosis 50-70%. There is less than 50% stenosis of both common carotid arteries. Less than 50% stenosis in the left ICA. Vertebral arteries were not able to be visualized. * Suggest repeat carotid Doppler in 6 months to a year for a follow-up. * Suggest starting aspirin 81 mg if no medical contraindications. * Lipid panel with cholesterol 120, LDL 38, HDL 66 and triglycerides 78. Zonia nue Lipitor 40 mg daily. * Hemoglobin A1c 7.8 on 06/07/2022. * B12 405, folate 9.10. We will start B12, folate replacement. Hopefully will help with possible peripheral neuropathy. Recommend optimize contorting of diabetes, as per IM. * Medical management as per IM and other specialties. Neurologically clear.
[2022-06-12] MEDS ORDERED: FUROSEMIDE 40 MG TAB PO SCH (09:00)
--- NOTE | 2022-06-12 09:16 | XR ---
EXAMINATION TYPE: XR chest 1V portable DATE OF EXAM: 06/12/2022 Comparison: 06/09/2022 Clinical History: 81-year-old female shortness of breath Findings: Heart borderline enlarged. Diffuse interstitial opacity persists. Slight increasing small left and tr aakash right pleural effusions with bibasilar opacities. Impression: Correlate for ongoing CHF with pulmonary vascular congestion. Increasing small left and trace right p leural effusions with adjacent atelectasis and/or consolidation.
[2022-06-12 09:20] LABS: African American GFR (CKD) 50 (>60 ml/min/1.73 sqM); Anion Gap 5 mmol/L; Blood Urea Nitrogen 33 mg/dL (7-17); Calcium 8.7 mg/dL (8.4-10.2); Carbon Dioxide 23 mmol/L (22-30); Chloride 114 mmol/L (98-107); Glucose 86 mg/dL (74-99); Non-African American GFR(CKD) 44 (>60 ml/min/1.73 sqM); Sodium 142 mmol/L (137-145)
[2022-06-12 09:21] LABS: Potassium 4.7 mmol/L (3.5-5.1)
--- NOTE | 2022-06-12 09:46 | CA ---
Transthoracic Echo Report Name: Jane Malone Age: 81 Gender: F : 1940 Exam Date: 06/11/2022 14:01 Exam Location: [facility] Ht (in): 63 Wt (lb): 228 Ordering Physician: Sean Vasques DO ([email or web address]) Attending/Referring Phys: Pet Ambassador Zee Hernandez RDCS Procedure CPT: Indications: re: near syncope Cardiac Hx: Technical Quality: Contrast 1: Total Dose (mL): Contrast 2: Total Dose (mL): MEASUREMENTS (Male / Female) Normal Values 2D ECHO LV Diastolic Diameter PLAX 4.3 cm 4.2 - 5.9 / 3.9 - 5.3 cm LV Systolic Diameter PLAX 2.4 cm IVS Diastolic Thickness 1.1 cm 0.6 - 1.0 / 0.6 - 0.9 cm LVPW Diastolic Thickness 1.2 cm 0.6 - 1.0 / 0.6 - 0.9 cm LV Relative Wall Thickness 0.5 RV Internal Dim ED PLAX 3.3 cm LA Systolic Diameter LX 4.2 cm 3.0 - 4.0 / 2.7 - 3.8 cm M-MODE Aortic Root Diameter MM 2.5 cm MV E Point Septal Separation 0.8 cm AV Cusp Separation MM 1.7 cm DOPPLER AV Peak Velocity 173.3 cm/s AV Peak Gradient 12.0 mmHg MV Area PHT 3.5 cm??? Mitral E Point Velocity 160.3 cm/s Mitral A Point Velocity 85.7 cm/s Mitral E to A Ratio 1.9 MV Deceleration Time 216.3 ms MV E' Velocity 6.5 cm/s Mitral E to MV E' Ratio 24.7 TR Peak Velocity 341.4 cm/s TR Peak Gradient 46.6 mmHg Right Ventricular Systolic Press 49.8 mmHg FINDINGS Left Ventricle Left ventricular ejection fraction is estimated at 55-60 %. Left ventricular cavity size normal. Mildly increased septal wall thickness. Mildly increased posterior wall thickness. Right Ventricle Mild right ventricular dilatation. Moderate pulmonary hypertension. Right Atrium Normal right atrial size. Left Atrium Mildly increased left atrial diameter. No evidence for an atrial septal defect. Mitral Valve Mitral valve thickened. Mild mitral annular calcification. Mild mitral regurgitation. Calcified chordae Aortic Valve Trileaflet aortic valve. No aortic valve stenosis or regurgitation. Focal thickening of the aortic valve cusps. Tricuspid Valve Structurally normal tricuspid valve. Mild tricuspid regurgitation. Pulmonic Valve Structurally normal pulmonic valve. Pericardium Trivial pericardial effusion or a fat pad Aorta Normal size aortic root and proximal ascending aorta. CONCLUSIONS Normal LV size and systolic function with mild concentric LVH. There is mild calcification of aortic and mitral valve leaflets without significant stenosis or regurgitation. There is a trivial pericardial effusion are more likely a fat pad Previewed by: Dr. Keila Avila MD (Electronically Signed) Final Date: 12 June 2022 09:45
[2022-06-12 10:44] LABS: Glucose,Whole Blood 112 mg/dL (70-110)
--- NOTE | 2022-06-12 11:13 | P.PN ---
Subjective HISTORY OF PRESENTING ILLNESS Patient is a pleasant 81-year-old female with history of hypertension, diabetes, chronic diastolic heart failure, aortic stenosis, pressure ulcers, debility. 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 She was last seen in the hospital November 2019 and last echocardiogram 05/2021 showed EF 60-65%, severely dilated left atrium, mild aortic stenosis, mild to moderate mitral stenosis, RVSP 49. Patient states she normally has helpers with rehab and physical therapy and was being helped to stand up by visiting nurse however start feeling weak and then fell down. There was some concern of loss of consciousness however patient states she did not lose consciousness and only felt lightheaded and then fell and felt like her legs gave out from under her. She usually does not do much walking. Initial blood pressure reading of 139/60 however repeat at 84/45. She denies any changes to her blood pressure medications. Denies any chest pain or pressure. No shortness breath. CT brain showed cerebral atrophy and chronic small vessel ischemia with no acute process. Carotid ultrasound showed 50-70% stenosis on the right and less than 50% on the left internal carotid artery. EKG shows sinus rhythm, normal axis, no significant ST or T-wave abnormalities. 06/12 Patient seen and examined, she was found to be in acute heart failure over the weekend and She was started on IV Lasix. She continues to be short of breath, but continues to improve Continues to have significant LE edema as well but improved. No chest pain or pressure. Her BP meds have been held secondary to hypotension. Blood pressure has improved and restarted. Vitals signs are stable. Echocardiogram revealed an EF of 5560 percent, mild increase septal wall thickness Patient with -1L fluid balance. Sodium 142, potassium 4.7, BUN 33, serum creatinine 1.1. PHYSICAL EXAMINATION Vital signs reviewed. CONSTITUTIONAL: No apparent distress, chronically ill appearing, obese, mildly pale HEENT: Head is normocephalic. No JVD. CHEST EXAMINATION: Lungs are mild crackles in the bases bilaterally to auscultation. No chest wall tenderness is noted on palpation or with deep breathing. HEART EXAMINATION: Regular rate and rhythm. S1, S2 heard. No murmurs, gallops or rub. ABDOMEN: Soft, nontender. Positive bowel sounds. EXTREMITIES: 2+ peripheral pulses, 3+ LLE > RLE bilateral lower extremity edema and no calf tenderness. NEUROLOGIC EXAMINATION: Patient is awake, alert and oriented x3. ASSESSMENT Episode of unresponsiveness with fall. No clear-cut syncope and patient states her legs gave out from under her, Patient denied any actual syncope. Hypotensive episodes, may be related to over medicated with blood pressure medications versus rule out other sepsis versus other Acute on chronic heart failure with preserved ejection fraction Chronic kidney disease Aortic stenosis, mild by prior echo DM2 50-70% right internal carotid artery stenosis Chronic debility PLAN Transition to PO lasix 40mg BID and assess response and need for IV Lasix Check chest xray Monitor I/Os daily weights, renal function and electrolytes Monitor BP and potassium with restarting cardiac medications Further recommendations based on clinical course Nurse practitioner note has been reviewed by physician. Signing provider agrees with the documented findings, assessment, and plan of care. Objective - Vital Signs Vital signs: Vital Signs Temp 97.4 F L 06/12/22 07:52 Pulse 66 06/12/22 08:40 Resp 14 06/12/22 07:55 BP 148/55 06/12/22 07:52 Pulse Ox 100 06/12/22 07:52 FiO2 Intake & Output 06/11/22 06/12/22 06/12/22 18:59 06:59 18:59 Output Total 1000 0 Balance -1000 0 Weight 103.419 kg 102.7 kg Output: Urine 1000 Stool 0 Other: Voiding Method Indwelling Catheter Indwelling Catheter Indwelling Catheter - Labs CBC & Chem 7: 06/09/22 04:35 06/12/22 07:31 Labs: Abnormal Lab Results - Last 24 Hours (Table) 06/11/22 06/11/22 06/11/22 Range/Units 11:15 11: 11:43 Chloride (98-107) mmol/L BUN (7-17) mg/dL Creatinine (0.52-1.04) mg/dL POC Glucose (mg/dL) 35 L 40 L 60 L (70-110) mg/dL 06/11/22 06/11/22 06/12/22 Range/Units 12:01 19:13 07:31 Chloride 114 H (98-107) mmol/L BUN 33 H (7-17) mg/dL Creatinine 1.18 H (0.52-1.04) mg/dL POC Glucose (mg/dL) 66 L 140 H (70-110) mg/dL 06/12/22 Range/Units 10:42 Chloride (98-107) mmol/L BUN (7-17) mg/dL Creatinine (0.52-1.04) mg/dL POC Glucose (mg/dL) 112 H (70-110) mg/dL
--- NOTE | 2022-06-12 12:26 | P.PN ---
Subjective Patient is seen for follow-up for acute kidney injury and top of chronic kidney disease. Blood pressure was low on initial admission. Currently being diuresed for volume overload. Serum creatinine staying at about 1.7-1.6 mg/dL. down to 1.18 today Patient has significant lower extremity edema. Her legs are currently wrapped. Sitting on a bedside chair today. Lasix was increased to every 12 hours Urine output documented at 1 L for 24 hours. Currently with indwelling Zhang catheter. Objective - Vital Signs Vital signs: Vital Signs Temp 97.4 F L 06/12/22 07:52 Pulse 72 06/12/22 11:39 Resp 14 06/12/22 07:55 BP 148/55 06/12/22 07:52 Pulse Ox 100 06/12/22 07:52 FiO2 Intake & Output 06/11/22 06/12/22 06/12/22 18:59 06:59 18:59 Output Total 1000 0 Balance -1000 0 Weight 103.419 kg 102.7 kg Output: Urine 1000 Stool 0 Other: Voiding Method Indwelling Catheter Indwelling Catheter Indwelling Catheter - Exam Awake, comfortable, no acute distress Examination of the heart S1 and S2 Examination lungs decreased breath sounds at the bases Abdomen is soft Examination lower extremity shows significant edema bilaterally worse on the left leg. Both legs are wrapped - Labs CBC & Chem 7: 06/09/22 04:35 06/12/22 07:31 Labs: Abnormal Lab Results - Last 24 Hours (Table) 06/11/22 06/12/22 06/12/22 Range/Units 19:13 07:31 10:42 Chloride 114 H (98-107) mmol/L BUN 33 H (7-17) mg/dL Creatinine 1.18 H (0.52-1.04) mg/dL POC Glucose (mg/dL) 140 H 112 H (70-110) mg/dL Assessment and Plan Assessment: 1. Acute kidney injury currently nonoliguric associated with low blood pressures as well as cardiorenal syndrome. Currently being diuresed. Patient received IV fluids on initial admission. Serum creatinine 1.1 today 2. Chronic kidney disease NKF stage III Baseline creatinine about 1.4 etiology is nephrosclerosis. UA was benign 3. Type 2 diabetes with retinopathy 4. Anemia with evidence of iron deficiency receiving IV iron 5. Volume overload 6. Metabolic acidosis maintained on oral sodium bicarb Plan: Increase dose of Lasix as it was changed to oral. Patient continues to have significant edema.
[2022-06-12 15:45] LABS: Glucose,Whole Blood 171 mg/dL (70-110)
[2022-06-12] MEDS: FUROSEMIDE 20 MG TAB PO SCH (16:11)
[2022-06-12 19:56] LABS: Glucose,Whole Blood 152 mg/dL (70-110)
[2022-06-12] MEDS: ATORVASTATIN 40 MG TAB PO SCH (21:33)
[2022-06-13] MEDS: LEVOTHYROXINE 100 MCG TAB PO SCH (05:27)
[2022-06-13 05:58] LABS: Glucose,Whole Blood 160 mg/dL (70-110)
[2022-06-13] MEDS: carvediloL 6.25 MG TAB PO SCH ×2 (07:05→17:51)
[2022-06-13] MEDS: FERROUS SULFATE 325 MG TAB PO SCH ×2 (07:05→17:52)
[2022-06-13] MEDS: INSULIN ASPART (NovoLOG) 100 UNIT/ML VIAL SQ SCH ×4 (07:05→21:05)
[2022-06-13] MEDS: IPRATROPIUM-ALBUTEROL 3 ML NEB INHALATION SCH ×4 (07:46→19:05)
[2022-06-13] MEDS: FOLIC ACID 1 MG TAB PO SCH (09:24)
[2022-06-13] MEDS: SACUBITRIL/VALSARTAN 24 MG-26 MG TABLET PO SCH ×2 (09:24→22:02)
[2022-06-13] MEDS: DOCUSATE 100 MG CAP PO SCH ×2 (09:24→21:05)
[2022-06-13] MEDS: SODIUM BICARBONATE TAB 650 MG TAB PO SCH (09:24)
[2022-06-13] MEDS: amLODIPine 5 MG TAB PO SCH (09:25)
[2022-06-13] MEDS: INSULN ASP PRT/INSULIN ASPART 100 UNIT/ML 10 ML VIAL SQ SCH ×2 (09:25→21:05)
[2022-06-13] MEDS: CYANOCOBALAMIN 500 MCG TAB PO SCH (09:25)
[2022-06-13] MEDS: FUROSEMIDE 20 MG TAB PO SCH ×2 (09:25→17:51)
[2022-06-13] MEDS: metOLazone 2.5 MG TAB PO SCH (09:25)
--- NOTE | 2022-06-13 10:14 | XR ---
EXAMINATION TYPE: XR chest 2V DATE OF EXAM: 06/13/2022 HISTORY: Shortness of breath. COMPARISON: 06/12/2022 TECHNIQUE: Single view of the chest is submitted. FINDINGS: Demonstrated are scattered senescent parenchymal change. Pulmonary venous congestion with cardiomegaly scattered infiltrates and small effusions compatible wi th stable features of congestive failure. Hilar and mediastinal structures are within normal limits. Degenerative changes are seen of the dorsal spine. IMPRESSION: 1. Stable features of congestive failure.
--- NOTE | 2022-06-13 10:41 | P.PN ---
Subjective HISTORY OF PRESENTING ILLNESS Patient is a pleasant 81-year-old female with history of hypertension, diabetes, chronic diastolic heart failure, aortic stenosis, pressure ulcers, debility. 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 She was last seen in the hospital November 2019 and last echocardiogram 05/2021 showed EF 60-65%, severely dilated left atrium, mild aortic stenosis, mild to moderate mitral stenosis, RVSP 49. Patient states she normally has helpers with rehab and physical therapy and was being helped to stand up by visiting nurse however start feeling weak and then fell down. There was some concern of loss of consciousness however patient states she did not lose consciousness and only felt lightheaded and then fell and felt like her legs gave out from under her. She usually does not do much walking. Initial blood pressure reading of 139/60 however repeat at 84/45. She denies any changes to her blood pressure medications. Denies any chest pain or pressure. No shortness breath. CT brain showed cerebral atrophy and chronic small vessel ischemia with no acute process. Carotid ultrasound showed 50-70% stenosis on the right and less than 50% on the left internal carotid artery. EKG shows sinus rhythm, normal axis, no significant ST or T-wave abnormalities. 06/12/2022 She was found to be in acute heart failure over the weekend and She was started on IV Lasix. She continues to be short of breath, but continues to improve Continues to have significant LE edema as well but improved. No chest pain or pressure. Her BP meds have been held secondary to hypotension. Blood pressure has improved and restarted. Vitals signs are stable. Echocardiogram revealed an EF of 5560 %, mild increase septal wall thickness Patient with -1L fluid balance. Sodium 142, potassium 4.7, BUN 33, serum creatinine 1.1. 06/13/2022 Patient seen and examined at bedside, no acute distress. Continues to have shortness of breath. Improved, but still not back at baseline. Lasix increased to 60mg BID and Zaroxyln added per nephrology. Patient with good urine output with -3.2L fluid balance. Labs pending. Chest x-ray yesterday with continuous pulmonary vascular congestion. BP elevated this morning. PHYSICAL EXAMINATION Vital signs reviewed. CONSTITUTIONAL: No apparent distress, chronically ill appearing, obese, mildly pale HEENT: Head is normocephalic. No JVD. CHEST EXAMINATION: Lungs are mild crackles in the bases bilaterally to auscultation. HEART EXAMINATION: Regular rate and rhythm. S1, S2 heard. No murmurs, gallops or rub. ABDOMEN: Soft, nontender. Positive bowel sounds. EXTREMITIES: 2+ peripheral pulses, 3+ LLE > RLE bilateral lower extremity edema and no calf tenderness. NEUROLOGIC EXAMINATION: Patient is awake, alert and oriented x3. ASSESSMENT Episode of unresponsiveness with fall. No clear-cut syncope and patient states her legs gave out from under her, Patient denied any actual syncope. Hypotensive episodes, may be related to over medicated with blood pressure medications versus rule out other sepsis versus other Acute on chronic heart failure with preserved ejection fraction Chronic kidney disease Aortic stenosis, mild by prior echo DM2 50-70% right internal carotid artery stenosis Chronic debility PLAN Continue Lasix 60mg BID and metolazone Monitor I/Os daily weights, renal function and electrolytes Continue home cardiac medications Further recommendations based on clinical course Nurse practitioner note has been reviewed by physician. Signing provider agrees with the documented findings, assessment, and plan of care. Objective - Vital Signs Vital signs: Vital Signs Temp 97.5 F L 06/13/22 07:36 Pulse 74 06/13/22 07:57 Resp 20 06/13/22 07:36 BP 184/75 06/13/22 07:36 Pulse Ox 91 L 06/13/22 07:36 FiO2 Intake & Output 06/12/22 06/13/22 06/13/22 18:59 06:59 18:59 Output Total 1700 1500 Balance -1700 -1500 Weight 103.7 kg Output: Urine 1700 1500 Stool 0 Other: Voiding Method Indwelling Catheter Indwelling Catheter Indwelling Catheter - Labs CBC & Chem 7: 06/09/22 04:35 06/12/22 07:31 Labs: Abnormal Lab Results - Last 24 Hours (Table) 06/12/22 06/12/22 06/12/22 Range/Units 10:42 15:43 19:54 POC Glucose (mg/dL) 112 H 171 H 152 H (70-110) mg/dL 06/13/22 Range/Units 05:57 POC Glucose (mg/dL) 160 H (70-110) mg/dL
--- NOTE | 2022-06-13 11:09 | P.PN ---
Subjective Patient is seen for follow-up for acute kidney injury and top of chronic kidney disease. Blood pressure was low on initial admission. Currently being diuresed for volume overload. Serum creatinine staying at about 1.7-1.6 mg/dL. down to 1.18 Patient has significant lower extremity edema. Her legs are currently wrapped. Sitting on a bedside chair today. Lasix was increased and Zaroxolyn added yesterday Urine output documented at 3.2 L for 24 hours. Currently with indwelling Zhang catheter. Objective - Vital Signs Vital signs: Vital Signs Temp 97.5 F L 06/13/22 07:36 Pulse 74 06/13/22 07:57 Resp 20 06/13/22 07:36 BP 184/75 06/13/22 07:36 Pulse Ox 91 L 06/13/22 07:36 FiO2 Intake & Output 06/12/22 06/13/22 06/13/22 18:59 06:59 18:59 Output Total 1700 1500 Balance -1700 -1500 Weight 103.7 kg Output: Urine 1700 1500 Stool 0 Other: Voiding Method Indwelling Catheter Indwelling Catheter Indwelling Catheter - Exam Awake, comfortable, no acute distress Examination of the heart S1 and S2 Examination lungs decreased breath sounds at the bases Abdomen is soft Examination lower extremity shows significant edema bilaterally worse on the left leg. Both legs are wrapped - Labs CBC & Chem 7: 06/09/22 04:35 06/12/22 07:31 Labs: Abnormal Lab Results - Last 24 Hours (Table) 06/12/22 06/12/22 06/13/22 Range/Units 15:43 19:54 05:57 POC Glucose (mg/dL) 171 H 152 H 160 H (70-110) mg/dL Assessment and Plan Assessment: 1. Acute kidney injury currently nonoliguric associated with low blood pressures as well as cardiorenal syndrome. Currently being diuresed. Patient received IV fluids on initial admission. Serum creatinine 1.1 2. Chronic kidney disease NKF stage III Baseline creatinine about 1.4 etiology is nephrosclerosis. UA was benign 3. Type 2 diabetes with retinopathy 4. Anemia with evidence of iron deficiency receiving IV iron 5. Volume overload 6. Metabolic acidosis maintained on oral sodium bicarb Plan: Continue with increased dose of diuretics DC sodium bicarb decrease sodium load Repeat labs in a.m.
[2022-06-13] MEDS: PANTOPRAZOLE 40 MG/10 ML VIAL IVP SCH (11:19)
[2022-06-13 11:25] LABS: Glucose,Whole Blood 142 mg/dL (70-110)
[2022-06-13 11:50] LABS: Basophils % (A) 1 %; Eosinophils # (A) 0.3 k/uL (0-0.7); Eosinophils % (A) 4 %; HCT 31.8 % (34.0-46.0); Hypochromasia Marked; Lymphocytes # (A) 0.8 k/uL (1.0-4.8); Lymphocytes % (A) 13 %; MCH 28.7 pg (25.0-35.0); MCHC 31.5 g/dL (31.0-37.0); MCV 91.1 fL (80.0-100.0); Monocytes # (A) 0.5 k/uL (0-1.0); Monocytes % (A) 7 %; Neutrophils # (A) 4.6 k/uL (1.3-7.7); Neutrophils % (A) 72 %; Platelet Count 296 k/uL (150-450); RBC 3.49 m/uL (3.80-5.40); RDW 15.1 % (11.5-15.5); WBC 6.3 k/uL (3.8-10.6)
[2022-06-13 12:05] LABS: ALT 8 U/L (4-34); AST 16 U/L (14-36); African American GFR (CKD) 49 (>60 ml/min/1.73 sqM); Alkaline Phosphatase 128 U/L (38-126); Anion Gap 6 mmol/L; Blood Urea Nitrogen 31 mg/dL (7-17); Calcium 8.8 mg/dL (8.4-10.2); Carbon Dioxide 28 mmol/L (22-30); Chloride 109 mmol/L (98-107); Globulin 3.1 g/dL; Glucose 135 mg/dL (74-99); Non-African American GFR(CKD) 42 (>60 ml/min/1.73 sqM); Potassium 4.4 mmol/L (3.5-5.1); Sodium 143 mmol/L (137-145); Total Bilirubin 0.7 mg/dL (0.2-1.3); Total Protein 6.1 g/dL (6.3-8.2)
[2022-06-13] MEDS ORDERED: FUROSEMIDE 10 MG/ML 10 ML VIAL IV ONE (13:00)
[2022-06-13 16:33] LABS: Glucose,Whole Blood 155 mg/dL (70-110)
[2022-06-13 19:14] LABS: Glucose,Whole Blood 237 mg/dL (70-110)
[2022-06-13] MEDS: ATORVASTATIN 40 MG TAB PO SCH (21:05)
[2022-06-14 06:01] LABS: African American GFR (CKD) 37 (>60 ml/min/1.73 sqM); Anion Gap 2 mmol/L; Blood Urea Nitrogen 33 mg/dL (7-17); Calcium 8.5 mg/dL (8.4-10.2); Carbon Dioxide 33 mmol/L (22-30); Chloride 105 mmol/L (98-107); Glucose 110 mg/dL (74-99); Non-African American GFR(CKD) 32 (>60 ml/min/1.73 sqM); Potassium 4.5 mmol/L (3.5-5.1); Sodium 140 mmol/L (137-145)
[2022-06-14 06:16] LABS: Glucose,Whole Blood 109 mg/dL (70-110)
[2022-06-14] MEDS: INSULIN ASPART (NovoLOG) 100 UNIT/ML VIAL SQ SCH ×4 (06:35→21:38)
[2022-06-14] MEDS: LEVOTHYROXINE 100 MCG TAB PO SCH (06:59)
[2022-06-14] MEDS: FERROUS SULFATE 325 MG TAB PO SCH ×2 (07:00→15:55)
[2022-06-14] MEDS: carvediloL 6.25 MG TAB PO SCH ×2 (07:00→15:55)
[2022-06-14] MEDS: FUROSEMIDE 20 MG TAB PO SCH ×2 (07:17→15:55)
[2022-06-14] MEDS: FOLIC ACID 1 MG TAB PO SCH (07:17)
[2022-06-14] MEDS: DOCUSATE 100 MG CAP PO SCH ×2 (07:18→21:38)
[2022-06-14] MEDS: CYANOCOBALAMIN 500 MCG TAB PO SCH (07:18)
[2022-06-14] MEDS: metOLazone 2.5 MG TAB PO SCH (07:18)
[2022-06-14] MEDS: SACUBITRIL/VALSARTAN 24 MG-26 MG TABLET PO SCH (07:18)
[2022-06-14] MEDS: amLODIPine 5 MG TAB PO SCH (07:18)
[2022-06-14] MEDS: IPRATROPIUM-ALBUTEROL 3 ML NEB INHALATION SCH ×4 (07:30→20:54)
--- NOTE | 2022-06-14 07:45 | PN ---
PROGRESS NOTE DATE OF SERVICE: 06/12/2022 CHIEF COMPLAINT: General debility and failure to thrive with weakness and dehydration. HISTORY OF PRESENT ILLNESS: This lady is fairly stable, but she is still complaining of quite a bit of shortness of breath. She has had no cough, hemoptysis, chest pain, orthopnea, PND, etc. PHYSICAL EXAMINATION: CHEST: Demonstrates decreased breath sounds throughout with scattered rales. There are decreased breath sounds at the bases. CARDIAC: Normal. ABDOMEN: Soft and nontender. IMPRESSION: 1. Shortness of breath. 2. Congestive heart failure. 3. General debility and weakness. 4. Dehydration. 5. Venous stasis disease of lower extremities with cellulitis and ulcers (chronic). PLAN: Continue to monitor her shortness of breath. [facility] placement is being sought. MMODL / IJN: [id number] /
[2022-06-14] MEDS: INSULN ASP PRT/INSULIN ASPART 100 UNIT/ML 10 ML VIAL SQ SCH ×2 (08:26→21:38)
--- NOTE | 2022-06-14 08:45 | PN ---
PROGRESS NOTE DATE OF SERVICE: 06/13/2022 CHIEF COMPLAINT: 1. Generalized weakness and debility. 2. Stasis dermatitis with cellulitis and ulcers, lower extremities-chronic. 3. Shortness of breath. HISTORY OF PRESENT ILLNESS: This lady is still having a lot of difficulty shortness of breath. Chest x-ray will be obtained. She is on a strong medication program for congestive heart failure. She has had no fever or chills. PHYSICAL EXAMINATION: CHEST: Breath sounds are diminished and there are scattered rales and rhonchi. CARDIAC: Normal. ABDOMEN: Soft and nontender. EXTREMITIES: Wrapped. IMPRESSION: 1. Shortness of breath. 2. Congestive heart failure. 3. General debility and failure to thrive. 4. Stasis dermatitis of the lower extremities with cellulitis and ulcers. PLAN: 1. Repeat chest x-ray. 2. Repeat BNP. 3. Continue with updrafts. 4. A bed is available for her [facility] and if nothing further develops today, she will be able to go there tomorrow. MMZAC / HEAVENLYN: [id number] /
--- NOTE | 2022-06-14 09:43 | P.PN ---
Subjective HISTORY OF PRESENTING ILLNESS Patient is a pleasant 81-year-old female with history of hypertension, diabetes, chronic diastolic heart failure, aortic stenosis, pressure ulcers, debility. 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 She was last seen in the hospital November 2019 and last echocardiogram 05/2021 showed EF 60-65%, severely dilated left atrium, mild aortic stenosis, mild to moderate mitral stenosis, RVSP 49. Patient states she normally has helpers with rehab and physical therapy and was being helped to stand up by visiting nurse however start feeling weak and then fell down. There was some concern of loss of consciousness however patient states she did not lose consciousness and only felt lightheaded and then fell and felt like her legs gave out from under her. She usually does not do much walking. Initial blood pressure reading of 139/60 however repeat at 84/45. She denies any changes to her blood pressure medications. Denies any chest pain or pressure. No shortness breath. CT brain showed cerebral atrophy and chronic small vessel ischemia with no acute process. Carotid ultrasound showed 50-70% stenosis on the right and less than 50% on the left internal carotid artery. EKG shows sinus rhythm, normal axis, no significant ST or T-wave abnormalities. 06/12/2022 She was found to be in acute heart failure over the weekend and She was started on IV Lasix. She continues to be short of breath, but continues to improve Continues to have significant LE edema as well but improved. No chest pain or pressure. Her BP meds have been held secondary to hypotension. Blood pressure has improved and restarted. Vitals signs are stable. Echocardiogram revealed an EF of 5560 %, mild increase septal wall thickness Patient with -1L fluid balance. Sodium 142, potassium 4.7, BUN 33, serum creatinine 1.1. 06/14/2022 Patient seen and examined at bedside, no acute distress. Continues to have shortness of breath, but much Improved. Lasix increased to 60mg BID and Zaroxyln added per nephrology. Patient with good urine output with -4.3L fluid balance. BUN 33, serum creatinine 1.5. PHYSICAL EXAMINATION Vital signs reviewed. CONSTITUTIONAL: No apparent distress, chronically ill appearing, obese, mildly pale HEENT: Head is normocephalic. No JVD. CHEST EXAMINATION: Lungs are mild crackles in the bases bilaterally to auscultation. HEART EXAMINATION: Regular rate and rhythm. S1, S2 heard. No murmurs, gallops or rub. ABDOMEN: Soft, nontender. Positive bowel sounds. EXTREMITIES: 2+ peripheral pulses, 3+ LLE > RLE bilateral lower extremity edema and no calf tenderness. NEUROLOGIC EXAMINATION: Patient is awake, alert and oriented x3. ASSESSMENT Episode of unresponsiveness with fall. No clear-cut syncope and patient states her legs gave out from under her, Patient denied any actual syncope. Hypotensive episodes, may be related to over medicated with blood pressure medications versus rule out other sepsis versus other Acute on chronic heart failure with preserved ejection fraction Chronic kidney disease Aortic stenosis, mild by prior echo DM2 50-70% right internal carotid artery stenosis Chronic debility PLAN Continue Lasix 60mg BID and metolazone per nephrology Monitor I/Os daily weights, renal function and electrolytes while inpatient Continue home cardiac medications No further changes from a cardiology perspective, continue current Lasix dose We will follow the patient as needed, Please re-consult if needed. Nurse practitioner note has been reviewed by physician. Signing provider agrees with the documented findings, assessment, and plan of care. Objective - Vital Signs Vital signs: Vital Signs Temp 98.1 F 06/14/22 08:00 Pulse 57 L 06/14/22 08:00 Resp 17 06/14/22 08:00 BP 175/67 06/14/22 08:00 Pulse Ox 96 06/14/22 08:00 FiO2 Intake & Output 06/13/22 06/14/22 06/14/22 18:59 06:59 18:59 Output Total 2200 2100 Balance -2200 -2100 Weight 103.5 kg Output: Urine 2200 2100 Other: Voiding Method Indwelling Catheter Indwelling Catheter - Labs CBC & Chem 7: 06/13/22 10:44 06/14/22 04:58 Labs: Abnormal Lab Results - Last 24 Hours (Table) 06/13/22 06/13/22 06/13/22 Range/Units 10:44 10:44 11:24 RBC 3.49 L (3.80-5.40) m/uL Hgb 10.0 L (11.4-16.0) gm/dL Hct 31.8 L (34.0-46.0) % Lymphocytes # 0.8 L (1.0-4.8) k/uL Chloride 109 H (98-107) mmol/L Carbon Dioxide (22-30) mmol/L BUN 31 H (7-17) mg/dL Creatinine 1.21 H (0.52-1.04) mg/dL Glucose 135 H (74-99) mg/dL POC Glucose (mg/dL) 142 H (70-110) mg/dL Alkaline Phosphatase 128 H (38-126) U/L Total Protein 6.1 L (6.3-8.2) g/dL Albumin 3.0 L (3.5-5.0) g/dL 06/13/22 06/13/22 06/14/22 Range/Units 16:32 19:13 04:58 RBC (3.80-5.40) m/uL Hgb (11.4-16.0) gm/dL Hct (34.0-46.0) % Lymphocytes # (1.0-4.8) k/uL Chloride (98-107) mmol/L Carbon Dioxide 33 H (22-30) mmol/L BUN 33 H (7-17) mg/dL Creatinine 1.51 H (0.52-1.04) mg/dL Glucose 110 H (74-99) mg/dL POC Glucose (mg/dL) 155 H 237 H (70-110) mg/dL Alkaline Phosphatase (38-126) U/L Total Protein (6.3-8.2) g/dL Albumin (3.5-5.0) g/dL
[2022-06-14 11:28] LABS: Glucose,Whole Blood 163 mg/dL (70-110)
[2022-06-14] MEDS: PANTOPRAZOLE 40 MG/10 ML VIAL IVP SCH (11:49)
[2022-06-14 16:16] LABS: Glucose,Whole Blood 206 mg/dL (70-110)
--- NOTE | 2022-06-14 16:37 | P.PN ---
Subjective Patient is seen for follow-up for acute kidney injury and top of chronic kidney disease. Blood pressure was low on initial admission. Currently being diuresed for volume overload. Serum creatinine staying at about 1.7-1.6 mg/dL. down to 1.18 Patient has significant lower extremity edema. Her legs are currently wrapped. Sitting on a bedside chair. Good diuresis over the last 24 hours with 24 hour urine output at 4.3 L. Objective - Vital Signs Vital signs: Vital Signs Temp 98.0 F 06/14/22 14:00 Pulse 63 06/14/22 14:00 Resp 18 06/14/22 14:00 BP 148/59 06/14/22 14:00 Pulse Ox 95 06/14/22 14:00 FiO2 Intake & Output 06/13/22 06/14/22 06/14/22 18:59 06:59 18:59 Output Total 2200 2100 Balance -2200 -2099 Weight 103.5 kg Output: Urine 2200 2100 Other: Voiding Method Indwelling Catheter Indwelling Catheter Indwelling Catheter - Exam Awake, comfortable, no acute distress Examination of the heart S1 and S2 Examination lungs decreased breath sounds at the bases Abdomen is soft Examination lower extremity shows significant edema bilaterally worse on the left leg. Both legs are wrapped - Labs CBC & Chem 7: 06/13/22 10:44 06/14/22 04:58 Labs: Abnormal Lab Results - Last 24 Hours (Table) 06/13/22 06/14/22 06/14/22 Range/Units 19:13 04:58 11:26 Carbon Dioxide 33 H (22-30) mmol/L BUN 33 H (7-17) mg/dL Creatinine 1.51 H (0.52-1.04) mg/dL Glucose 110 H (74-99) mg/dL POC Glucose (mg/dL) 237 H 163 H (70-110) mg/dL 06/14/22 Range/Units 16:15 Carbon Dioxide (22-30) mmol/L BUN (7-17) mg/dL Creatinine (0.52-1.04) mg/dL Glucose (74-99) mg/dL POC Glucose (mg/dL) 206 H (70-110) mg/dL Assessment and Plan Assessment: 1. Acute kidney injury currently nonoliguric associated with low blood pressures as well as cardiorenal syndrome. Currently being diuresed. Patient received IV fluids on initial admission. Serum creatinine 1.5 today 2. Chronic kidney disease NKF stage III Baseline creatinine about 1.4 etiology is nephrosclerosis. UA was benign 3. Type 2 diabetes with retinopathy 4. Anemia with evidence of iron deficiency receiving IV iron 5. Volume overload 6. Metabolic acidosis maintained on oral sodium bicarb Plan: Continue with increased dose of diuretics. Decrease Lasix to 40 mg twice a day tomorrow. Continue with Zaroxolyn DC sodium bicarb decrease sodium load Repeat labs in a.m.
[2022-06-14 19:57] LABS: Glucose,Whole Blood 274 mg/dL (70-110)
[2022-06-14] MEDS: ATORVASTATIN 40 MG TAB PO SCH (21:38)
[2022-06-14] MEDS: SACUBITRIL/VALSARTAN 97 MG-103 MG TABLET PO SCH (21:41)
[2022-06-15 06:21] LABS: Glucose,Whole Blood 93 mg/dL (70-110)
[2022-06-15] MEDS: INSULIN ASPART (NovoLOG) 100 UNIT/ML VIAL SQ SCH ×4 (06:22→21:55)
[2022-06-15] MEDS: IPRATROPIUM-ALBUTEROL 3 ML NEB INHALATION SCH ×4 (07:41→21:13)
--- NOTE | 2022-06-15 09:50 | P.PN ---
Subjective Patient is seen for follow-up for acute kidney injury and top of chronic kidney disease. Blood pressure was low on initial admission. Currently being diuresed for volume overload. Serum creatinine staying at about 1.7-1.6 mg/dL. down to 1.18 Patient has significant lower extremity edema. Her legs are currently wrapped. No significant complaints Good diuresis over the last 2 days. Lasix dose was decreased yesterday. Patient is laying in bed Objective - Vital Signs Vital signs: Vital Signs Temp 98.3 F 06/15/22 08:00 Pulse 63 06/15/22 08:00 Resp 18 06/15/22 08:00 BP 127/65 06/15/22 08:00 Pulse Ox 92 L 06/15/22 08:00 FiO2 Intake & Output 06/14/22 06/15/22 06/15/22 18:59 06:59 18:59 Output Total 2000 600 Balance -2000 -600 Output: Urine 2000 600 Other: Voiding Method Indwelling Catheter Indwelling Catheter # Bowel Movements 1 - Exam Awake, comfortable, no acute distress Examination of the heart S1 and S2 Examination lungs decreased breath sounds at the bases Abdomen is soft Examination lower extremity shows significant edema bilaterally worse on the left leg. Both legs are wrapped - Labs CBC & Chem 7: 06/13/22 10:44 06/14/22 04:58 Labs: Abnormal Lab Results - Last 24 Hours (Table) 06/14/22 06/14/22 06/14/22 Range/Units 11:26 16:15 19:56 POC Glucose (mg/dL) 163 H 206 H 274 H (70-110) mg/dL Assessment and Plan Assessment: 1. Acute kidney injury currently nonoliguric associated with low blood pressures as well as cardiorenal syndrome. Currently being diuresed. Patient received IV fluids on initial admission. Serum creatinine 1.5 yesterday 2. Chronic kidney disease NKF stage III Baseline creatinine about 1.4 etiology is nephrosclerosis. UA was benign 3. Type 2 diabetes with retinopathy 4. Anemia with evidence of iron deficiency receiving IV iron 5. Volume overload 6. Metabolic acidosis maintained on oral sodium bicarb Plan: Check labs today Continue current dose of Lasix and Zaroxolyn
[2022-06-15] MEDS: CYANOCOBALAMIN 500 MCG TAB PO SCH (10:08)
[2022-06-15] MEDS: FUROSEMIDE 20 MG TAB PO SCH ×2 (10:08→18:26)
[2022-06-15] MEDS: DOCUSATE 100 MG CAP PO SCH ×2 (10:08→20:39)
[2022-06-15] MEDS: LEVOTHYROXINE 100 MCG TAB PO SCH (10:08)
[2022-06-15] MEDS: FOLIC ACID 1 MG TAB PO SCH (10:08)
[2022-06-15] MEDS: FERROUS SULFATE 325 MG TAB PO SCH ×2 (10:09→18:26)
[2022-06-15] MEDS: metOLazone 2.5 MG TAB PO SCH (10:09)
[2022-06-15] MEDS: carvediloL 6.25 MG TAB PO SCH ×2 (10:09→18:26)
[2022-06-15] MEDS: SACUBITRIL/VALSARTAN 97 MG-103 MG TABLET PO SCH ×2 (10:09→20:39)
[2022-06-15] MEDS: INSULN ASP PRT/INSULIN ASPART 100 UNIT/ML 10 ML VIAL SQ SCH ×2 (10:09→21:54)
[2022-06-15] MEDS: amLODIPine 5 MG TAB PO SCH (10:09)
[2022-06-15] MEDS: PANTOPRAZOLE 40 MG/10 ML VIAL IVP SCH (11:40)
[2022-06-15 11:42] LABS: Glucose,Whole Blood 99 mg/dL (70-110)
[2022-06-15 11:46] LABS: African American GFR (CKD) 45 (>60 ml/min/1.73 sqM); Anion Gap 2 mmol/L; Blood Urea Nitrogen 35 mg/dL (7-17); Calcium 8.2 mg/dL (8.4-10.2); Carbon Dioxide 34 mmol/L (22-30); Chloride 103 mmol/L (98-107); Glucose 85 mg/dL (74-99); Non-African American GFR(CKD) 39 (>60 ml/min/1.73 sqM); Sodium 139 mmol/L (137-145)
[2022-06-15 17:07] LABS: Glucose,Whole Blood 177 mg/dL (70-110)
[2022-06-15] MEDS: ATORVASTATIN 40 MG TAB PO SCH (20:39)
[2022-06-15 20:54] LABS: Glucose,Whole Blood 249 mg/dL (70-110)
--- NOTE | 2022-06-16 04:53 | PN ---
PROGRESS NOTE DATE OF SERVICE: 06/14/2022 CHIEF COMPLAINT: Shortness of breath. HISTORY OF PRESENT ILLNESS: This lady's shortness of breath is just about the same. Her blood pressure is slightly elevated, so her Entresto will be increased. She denies any chest pain. She feels more short of breath when lying down. Her ejection fraction is normal. PHYSICAL EXAMINATION: GENERAL: She remains very pale. CHEST: Demonstrates scattered rales and decreased breath sounds at the bases. CARDIAC: Normal. ABDOMEN: Soft. EXTREMITIES: Legs are dressed. IMPRESSION: 1. Acute on chronic diastolic heart failure. 2. Stasis disease of the lower extremities with ulcers and cellulitis. PLAN: 1. Increase Entresto. 2. Her heart failure may not respond a great deal more. She is already in a fairly aggressive management program. MMODL / IJN: [id number] /
--- NOTE | 2022-06-16 04:53 | PN ---
PROGRESS NOTE DATE OF SERVICE: 06/15/2022 CHIEF COMPLAINT: Congestive heart failure. HISTORY OF PRESENT ILLNESS: This lady thinks she is breathing just a little bit better. She was told that we may not be able to improve a great deal on her symptoms. PHYSICAL EXAMINATION: Chest demonstrates decreased breath sounds at the bases with rales. She is pale. She is short of breath. IMPRESSION: 1. Acute on chronic congestive heart failure. 2. Stasis dermatitis with ulcerations and cellulitis. PLAN: Continue with management of her heart failure. If she does not improve significantly, she will be transferred to the [facility] early in the week. MMODL / IJN: [id number] /
[2022-06-16 06:11] LABS: Glucose,Whole Blood 107 mg/dL (70-110)
[2022-06-16] MEDS: INSULIN ASPART (NovoLOG) 100 UNIT/ML VIAL SQ SCH ×4 (06:22→22:31)
[2022-06-16] MEDS: LEVOTHYROXINE 100 MCG TAB PO SCH (06:25)
[2022-06-16] MEDS: IPRATROPIUM-ALBUTEROL 3 ML NEB INHALATION SCH ×4 (07:00→20:49)
[2022-06-16] MEDS: DOCUSATE 100 MG CAP PO SCH ×2 (07:56→21:12)
[2022-06-16] MEDS: CYANOCOBALAMIN 500 MCG TAB PO SCH (07:56)
[2022-06-16] MEDS: PANTOPRAZOLE 40 MG/10 ML VIAL IVP SCH (07:57)
[2022-06-16] MEDS: FUROSEMIDE 20 MG TAB PO SCH ×2 (07:57→16:59)
[2022-06-16] MEDS: FERROUS SULFATE 325 MG TAB PO SCH ×2 (07:57→16:59)
[2022-06-16] MEDS: metOLazone 2.5 MG TAB PO SCH (07:57)
[2022-06-16] MEDS: FOLIC ACID 1 MG TAB PO SCH (07:57)
[2022-06-16] MEDS: SACUBITRIL/VALSARTAN 97 MG-103 MG TABLET PO SCH ×2 (07:57→21:12)
[2022-06-16] MEDS: amLODIPine 5 MG TAB PO SCH (07:59)
[2022-06-16] MEDS: carvediloL 6.25 MG TAB PO SCH ×2 (07:59→16:57)
[2022-06-16] MEDS: INSULN ASP PRT/INSULIN ASPART 100 UNIT/ML 10 ML VIAL SQ SCH ×2 (08:05→21:12)
[2022-06-16 11:33] LABS: Glucose,Whole Blood 107 mg/dL (70-110)
--- NOTE | 2022-06-16 13:02 | PN ---
PROGRESS NOTE DATE OF SERVICE: 06/16/2022 CHIEF COMPLAINT: General debility and weakness with congestive heart failure. HISTORY OF PRESENT ILLNESS: This lady is doing better. She is less short of breath and she states that she is wheezing less. PHYSICAL EXAMINATION: VITAL SIGNS: Normal. CHEST: More clear. There are fewer rales, only occasional rhonchi. CARDIAC: Unchanged. ABDOMEN: Soft, nontender. EXTREMITIES: Unchanged. IMPRESSION: 1. General debility and failure to thrive. 2. Acute on chronic congestive heart failure-improving. 3. Stasis dermatitis and ulcerations. PLAN: Continue with current program and she will be ready to go to the [facility] tomorrow. MMODL / IJN: [id number] /
--- NOTE | 2022-06-16 13:49 | P.PN ---
Subjective Patient is seen for follow-up for acute kidney injury and top of chronic kidney disease. Blood pressure was low on initial admission. Currently being diuresed for volume overload. Serum creatinine staying at about 1.7-1.6 mg/dL. down to 1.18 Patient has significant lower extremity edema. Her legs are currently wrapped. No significant complaints Good diuresis over the last few days. . Patient is sitting on a bedside chair Objective - Vital Signs Vital signs: Vital Signs Temp 97.9 F 06/16/22 07:11 Pulse 74 06/16/22 11:26 Resp 18 06/16/22 08:00 BP 127/54 06/16/22 07:11 Pulse Ox 94 L 06/16/22 07:11 FiO2 Intake & Output 06/15/22 06/16/22 06/16/22 18:59 06:59 18:59 Output Total 800 Balance -800 Output: Urine 800 Other: Voiding Method Indwelling Catheter Indwelling Catheter Indwelling Catheter - Exam Awake, comfortable, no acute distress Examination of the heart S1 and S2 Examination lungs decreased breath sounds at the bases Abdomen is soft Examination lower extremity shows significant edema bilaterally worse on the left leg. Both legs are wrapped - Labs CBC & Chem 7: 06/13/22 10:44 06/15/22 10:53 Labs: Abnormal Lab Results - Last 24 Hours (Table) 06/15/22 06/15/22 Range/Units 17:02 20:53 POC Glucose (mg/dL) 177 H 249 H (70-110) mg/dL Assessment and Plan Assessment: 1. Acute kidney injury currently nonoliguric associated with low blood pressures as well as cardiorenal syndrome. Currently being diuresed. Patient received IV fluids on initial admission. 2. Chronic kidney disease NKF stage III Baseline creatinine about 1.4 etiology is nephrosclerosis. UA was benign 3. Type 2 diabetes with retinopathy 4. Anemia with evidence of iron deficiency receiving IV iron 5. Volume overload 6. Metabolic acidosis maintained on oral sodium bicarb Plan: Continue current dose of Lasix and Zaroxolyn
[2022-06-16 16:38] LABS: Glucose,Whole Blood 113 mg/dL (70-110)
[2022-06-16 20:42] LABS: Glucose,Whole Blood 204 mg/dL (70-110)
[2022-06-16] MEDS: ATORVASTATIN 40 MG TAB PO SCH (21:12)
[2022-06-17] MEDS: carvediloL 6.25 MG TAB PO SCH ×2 (05:37→16:51)
[2022-06-17] MEDS: FERROUS SULFATE 325 MG TAB PO SCH ×2 (05:37→16:49)
[2022-06-17] MEDS: LEVOTHYROXINE 100 MCG TAB PO SCH (05:38)
[2022-06-17 06:20] LABS: Glucose,Whole Blood 96 mg/dL (70-110)
[2022-06-17] MEDS: INSULIN ASPART (NovoLOG) 100 UNIT/ML VIAL SQ SCH ×4 (06:22→21:32)
[2022-06-17] MEDS: IPRATROPIUM-ALBUTEROL 3 ML NEB INHALATION SCH ×4 (07:50→20:33)
[2022-06-17] MEDS: amLODIPine 5 MG TAB PO SCH (08:18)
[2022-06-17] MEDS: PANTOPRAZOLE 40 MG/10 ML VIAL IVP SCH (08:18)
[2022-06-17] MEDS: DOCUSATE 100 MG CAP PO SCH ×2 (08:18→21:31)
[2022-06-17] MEDS: metOLazone 2.5 MG TAB PO SCH (08:19)
[2022-06-17] MEDS: FUROSEMIDE 20 MG TAB PO SCH ×2 (08:19→16:10)
[2022-06-17] MEDS: SACUBITRIL/VALSARTAN 97 MG-103 MG TABLET PO SCH ×2 (08:19→21:31)
[2022-06-17] MEDS: FOLIC ACID 1 MG TAB PO SCH (08:20)
[2022-06-17] MEDS: CYANOCOBALAMIN 500 MCG TAB PO SCH (08:20)
[2022-06-17] MEDS: INSULN ASP PRT/INSULIN ASPART 100 UNIT/ML 10 ML VIAL SQ SCH ×2 (08:37→21:32)
--- NOTE | 2022-06-17 10:57 | P.PN ---
Subjective patient is seen in follow-up for acute kidney injury on chronic kidney disease. Renal function improved with creatinine 1.29 yesterday. On oral Lasix. Has Zhang catheter. Oral intake fair. Hemodynamically stable. On 3 L nasal cannula. Vital signs are stable. General: awake. No acute distress. HEENT: Head exam is unremarkable. on nasal cannula. LUNGS: deleteBreath sounds decreased. HEART: Rate and Rhythm are regular. ABDOMEN: soft, no distention. EXTREMITITES: trace edema. Lower extremities wrapped. Objective - Vital Signs Vital signs: Vital Signs Temp 97.3 F L 06/17/22 08:07 Pulse 60 06/17/22 08:07 Resp 18 06/17/22 08:07 BP 125/46 06/17/22 08:07 Pulse Ox 94 L 06/17/22 08:07 FiO2 Intake & Output 06/16/22 06/17/22 06/17/22 18:59 06:59 18:59 Output Total 720 400 Balance -720 -400 Weight 98.8 kg Output: Urine 720 400 Other: Voiding Method Indwelling Catheter Indwelling Catheter Indwelling Catheter # Bowel Movements 1 - Labs CBC & Chem 7: 06/13/22 10:44 06/15/22 10:53 Labs: Abnormal Lab Results - Last 24 Hours (Table) 06/16/22 06/16/22 Range/Units 16:37 20:40 POC Glucose (mg/dL) 113 H 204 H (70-110) mg/dL Assessment and Plan Plan: Assessment: 1. Acute kidney injury mostly prerenal secondary to hypotension and cardiorenal syndrome. Creatinine 1.29 yesterday. 2. Chronic kidney disease stage IIIB with baseline creatinine near 1.4 secondary to nephrosclerosis. 3. Diabetes mellitus. 4. Acute on chronic diastolic CHF with moderate pulmonary hypertension. 5. Urinary retention. Has Zhang catheter. 6. Volume overload. Improved with diuresis. Plan: Maintain oral Lasix. Encourage oral intake. Avoid nephrotoxins. Continue to monitor renal function and urine output. Add Flomax. Okay to DC Zhang catheter from nephrology standpoint.
[2022-06-17] MEDS ORDERED: TAMSULOSIN 0.4 MG CAP.ER.24H PO SCH (11:00)
[2022-06-17 11:31] LABS: Glucose,Whole Blood 47 mg/dL (70-110)
[2022-06-17 11:48] LABS: Glucose,Whole Blood 62 mg/dL (70-110)
[2022-06-17 12:12] LABS: Glucose,Whole Blood 98 mg/dL (70-110)
[2022-06-17 16:32] LABS: Glucose,Whole Blood 153 mg/dL (70-110)
[2022-06-17] MEDS: ACETAMINOPHEN TAB 325 MG TAB PO PRN (16:51)
--- NOTE | 2022-06-17 17:06 | DS ---
DISCHARGE SUMMARY CHIEF COMPLAINT: Frequent falling and failure to thrive with general debility. HISTORY OF PRESENT ILLNESS AND PHYSICAL EXAMINATION: Details of this lady's history and physical can be found in the initial workup. LABORATORY STUDIES: While she is in a hospital, she had laboratory studies, details of which can be found in the laboratory section of her chart. COURSE IN THE HOSPITAL: After admission, she was placed on bedrest, started intravenous fluids and electrolytes were corrected and she was rehydrated. She received daily wound care to the decubitus over her ischial areas as well as the ulcers on her lower extremities. She became progressively more short of breath. It was determined that she had gone into acute congestive heart failure. This was addressed and her breathing was improving. She was completely unable to take care of herself at home and ambulate and arrangements were made for her to go back to a alf. FINAL DIAGNOSES: 1. General debility and failure to thrive. 2. Frequent falling. 3. Acute on chronic congestive heart failure. 4. Ischial decubitus. 5. Stasis dermatitis with stasis ulcers and cellulitis. OPERATIONS: None. CONSULTATIONS: Cardiology and Nephrology. She is improved. MMODL / IJN: [id number] /
[2022-06-17 20:35] LABS: Glucose,Whole Blood 177 mg/dL (70-110)
[2022-06-17] MEDS: ATORVASTATIN 40 MG TAB PO SCH (21:31)
--- NOTE | 2022-06-17 23:42 | DS ---
DISCHARGE SUMMARY CHIEF COMPLAINT: Weakness, falling and general debility. HISTORY OF PRESENT ILLNESS AND PHYSICAL EXAMINATION: Details of this lady's history and physical can be found in the initial workup. LABORATORY STUDIES: While she was in the hospital, she had laboratory studies, details of which can be found in the laboratory section of her chart. COURSE IN THE HOSPITAL: After admission, she was placed on bedrest, started on intravenous fluids and was rehydrated. Electrolytes were corrected. She was given regular wound care for her perineal decubiti as well as those on her legs. While she was in the hospital, she became progressively more short of breath and her congestive heart failure was determined to be getting worse. Medication regimen was increased and breathing was slightly improved. She explained that was likely very little more could be done for her congestive heart failure and that she would be cleared to go to [facility]. FINAL DIAGNOSES: 1. General debility and failure to thrive. 2. Frequent falling. 3. Ischial and sacral decubiti. 4. Stasis disease of lower extremities with dermatitis and stasis ulcers and cellulitis. 5. Acute on chronic congestive heart failure. OPERATIONS: None. CONSULTATIONS: Cardiology and Nephrology. She is improved. MMODL / IJN: [id number] /
[2022-06-18 01:28] LABS: Glucose,Whole Blood 33 mg/dL (70-110)
[2022-06-18 01:37] LABS: Glucose,Whole Blood 43 mg/dL (70-110)
[2022-06-18 01:46] LABS: Glucose,Whole Blood 54 mg/dL (70-110)
[2022-06-18 01:52] LABS: Glucose,Whole Blood 67 mg/dL (70-110)
[2022-06-18 02:07] LABS: Glucose,Whole Blood 104 mg/dL (70-110)
[2022-06-18 02:18] LABS: Glucose,Whole Blood 102 mg/dL (70-110)
[2022-06-18] MEDS ORDERED: SODIUM CHLORIDE 0.9% 1,000 ML IV SCH (02:30)
[2022-06-18 02:40] LABS: Glucose,Whole Blood 106 mg/dL (70-110)
[2022-06-18 03:49] LABS: Glucose,Whole Blood 142 mg/dL (70-110)
[2022-06-18 05:51] LABS: Glucose,Whole Blood 215 mg/dL (70-110)
[2022-06-18] MEDS: LEVOTHYROXINE 100 MCG TAB PO SCH (07:26)
[2022-06-18] MEDS: FERROUS SULFATE 325 MG TAB PO SCH (07:26)
[2022-06-18] MEDS: IPRATROPIUM-ALBUTEROL 3 ML NEB INHALATION SCH ×3 (07:45→15:50)
[2022-06-18 07:50] VITALS: RESP 20; TEMP 97.5
[2022-06-18] MEDS: INSULN ASP PRT/INSULIN ASPART 100 UNIT/ML 10 ML VIAL SQ SCH (08:21)
[2022-06-18] MEDS: INSULIN ASPART (NovoLOG) 100 UNIT/ML VIAL SQ SCH ×2 (08:56→12:23)
[2022-06-18] MEDS: DOCUSATE 100 MG CAP PO SCH (10:42)
[2022-06-18] MEDS: FUROSEMIDE 20 MG TAB PO SCH (10:47)
[2022-06-18] MEDS: PANTOPRAZOLE 40 MG/10 ML VIAL IVP SCH (10:47)
[2022-06-18] MEDS: CYANOCOBALAMIN 500 MCG TAB PO SCH (10:47)
[2022-06-18] MEDS: FOLIC ACID 1 MG TAB PO SCH (10:48)
[2022-06-18] MEDS: carvediloL 6.25 MG TAB PO SCH (10:48)
[2022-06-18] MEDS: amLODIPine 5 MG TAB PO SCH (10:48)
[2022-06-18] MEDS: SACUBITRIL/VALSARTAN 97 MG-103 MG TABLET PO SCH (10:49)
[2022-06-18] MEDS: metOLazone 2.5 MG TAB PO SCH (11:06)
--- NOTE | 2022-06-18 11:09 | P.PN ---
Subjective patient is seen in follow-up for acute kidney injury on chronic kidney disease. Renal function improved with creatinine 1.29 dated 06/15/2022. On oral Lasix. Has Zhang catheter. Oral intake fair. Blood pressure dropped last night and she received IV fluids for a few hours. Hypotension is now resolved. Vital signs are stable. General: awake. No acute distress. HEENT: Head exam is unremarkable. on nasal cannula. LUNGS: Breath sounds decreased. HEART: Rate and Rhythm are regular. ABDOMEN: soft, no distention. EXTREMITITES: trace edema. Lower extremities wrapped. Objective - Vital Signs Vital signs: Vital Signs Temp 97.5 F L 06/18/22 07:49 Pulse 66 06/18/22 10:58 Resp 20 06/18/22 07:49 BP 160/66 06/18/22 10:36 Pulse Ox 94 L 06/18/22 07:49 FiO2 Intake & Output 06/17/22 06/18/22 06/18/22 18:59 06:59 18:59 Intake Total 480 Output Total 1450 1225 500 Balance -1450 -1225 -20 Weight 99.5 kg Intake: Oral 480 Output: Urine 1450 1225 500 Other: Voiding Method Indwelling Catheter Indwelling Catheter Indwelling Catheter # Bowel Movements 1 - Labs CBC & Chem 7: 06/13/22 10:44 06/15/22 10:53 Labs: Abnormal Lab Results - Last 24 Hours (Table) 06/17/22 06/17/22 06/17/22 Range/Units 11:28 11:47 16:31 POC Glucose (mg/dL) 47 L 62 L 153 H (70-110) mg/dL 06/17/22 06/18/22 06/18/22 Range/Units 20:33 01:23 01:32 POC Glucose (mg/dL) 177 H 33 L 43 L (70-110) mg/dL 06/18/22 06/18/22 06/18/22 Range/Units 01:40 01:50 03:46 POC Glucose (mg/dL) 54 L 67 L 142 H (70-110) mg/dL 06/18/22 Range/Units 05:49 POC Glucose (mg/dL) 215 H (70-110) mg/dL Assessment and Plan Plan: Assessment: 1. Acute kidney injury mostly prerenal secondary to hypotension and cardiorenal syndrome. Creatinine 1.29 dated 06/15/2022. 2. Chronic kidney disease stage IIIB with baseline creatinine near 1.4 secondary to nephrosclerosis. 3. Diabetes mellitus. 4. Acute on chronic diastolic CHF with moderate pulmonary hypertension. 5. Volume overload. Improved with diuresis. Plan: Change Lasix to torsemide 20 mg once daily. Encourage oral intake. Avoid nephrotoxins. Continue to monitor renal function and urine output. Okay to DC Zhang catheter from nephrology standpoint. Per nurse, she will be discharged with Zhang catheter due to buttock wounds. Patient did not have urinary retention. Flomax discontinued. Hold amlodipine for systolic blood pressure less than 120. Repeat BMP and magnesium level 2-3 days postdischarge. Follow up outpatient in 1 week.
[2022-06-18] MEDS ORDERED: TORSEMIDE 20 MG TAB PO SCH (11:15)
[2022-06-18 11:28] LABS: Glucose,Whole Blood 238 mg/dL (70-110)
[2022-06-18 12:05] VITALS: BMI 38.8
[2022-06-18 14:53] VITALS: PULSE 59
[2022-06-18 14:59] VITALS: BP 111/62
[2022-06-18 18:02] LABS: African American GFR (CKD) 40.7 (60.0-200.0); Anion Gap 15.5 mmol/L (10.00-18.00); BUN/Creat Ratio 28.57 Ratio (12.00-20.00); Carbon Dioxide 27.5 mmol/L (20.0-27.5); Non-African American GFR(CKD) 35.1 (60.0-200.0); Potassium 5.3 mmol/L (3.5-5.5)
--- NOTE | 2022-06-18 22:12 | PN ---
PROGRESS NOTE DATE OF SERVICE: 06/18/2022 CHIEF COMPLAINT: General debility, failure to thrive, congestive heart failure, ischial decubiti, stasis dermatitis with ulcerations of both legs. HISTORY OF PRESENT ILLNESS: This lady wished to go to the assisted yesterday, but apparently the dictation was not done soon enough. It was done in the middle of the day on stat line. During the night, she suddenly became hypotensive and very lethargic. She did not have chest pain or lateralizing neurologic signs or symptoms. Her blood sugar had also dropped. She had been placed on Flomax and it is wondered if it could have created the hypotension. She responded to fluid infusion. She is doing much better today. PHYSICAL EXAMINATION: GENERAL: She is awake, alert. NEUROLOGICAL: She is intact. CHEST: Quite clear. CARDIAC: Normal. ABDOMEN: Soft and nontender. IMPRESSION: An episode of hypotension and hypoglycemia. PLAN: We still will plan on sending her to the assisted. Her insulin program has been cut and her insulin has also dropped. She will be followed at a assisted. FINAL DIAGNOSES: 1. Failure to thrive. 2. General debility. 3. Stasis ulcers and dermatitis of the lower extremities. 4. Decubiti of the perineum and the ischial areas. 5. Congestive heart failure (acute on chronic.). 6. Hypotension. 7. Urinary retention. MMODL / IJN: [id number] /
[2022-06-19] MEDS ORDERED: INSULIN DETEMIR (LEVEMIR) 100 UNIT/ML SYR SQ SCH (07:00)
[2022-06-19] MEDS ORDERED: FUROSEMIDE 40 MG TAB PO SCH (09:00)
--- NOTE | 2022-06-24 07:16 | CDI ---
Documentation Clarification Form Date: 06/24/2022 06:56:00 AM From: Cookie Ray Admit Date: 06/07/2022 03:38:00 PM Patient Name: Jane Malone Visit Number: [id number] Discharge Date: 06/18/2022 03:58:00 PM ATTENTION: The Clinical Documentation Specialists (CDI) and [facility] Coding Staff appreciate your assistance in clarifying documentation. Please respond to the clarification below the line at the bottom and electronically sign. The CDI & [facility] Coding staff will review the response and follow-up if needed. Please note: Queries are made part of the Legal Health Record. If you have any questions, please contact the author of this message via ITS. Dr. Faisal Fleming Patient with cellulitis bilateral legs is documented throughout the chart and patient is noted to have Diabetes throughout the chart. Please clarify if there is a relationship between the patient's cellulitis and patient's diabetes. History/Risk Factors: Patient with stasis dermatitis and stasis ulcers bilateral legs with cellulitis. Patient also has DM with CKD, neuropathy and retinopathy. Completely unable to care for self Clinical Indicators: Patient with DM and cellulitis Treatment: compression dressing and Insulin Please clarify the relationship, if any, which is clinically appropriate for this patient: [ ] Cellulitis due to DM [ ] Cellulitis not due to DM [ ] Other explanation of clinical findings (please specify) [ ] Unable to determine (no explanation for clinical findings) MTDD
--- NOTE | 2022-06-25 11:00 | P.PN ---
Subjective Progress Note Date: 06/10/22 Principal diagnosis: Multiple wounds Patient is a 81-year-old female with a past medical history significant for COPD diabetes mellitus hypertension hyperlipidemia heart failure with has been sent to the ER for evaluation of increasing weakness , patient was noticed to have a sacral and gluteal wounds from previous infectious disease consultation. On today's evaluation that is 06/10/2022,the patient remains afebrile patient is currently breathing comfortably on 3 L nasal cannula, the denies any chest pain de, the patient did have occasional dry cough no nausea no vomiting no abdominal pain or any worsening pain to the lower back wound area Objective - Vital Signs Vital signs: Vital Signs Temp 97.7 F 06/10/22 08:00 Pulse 72 06/10/22 11:12 Resp 17 06/10/22 08:00 BP 167/68 06/10/22 08:00 Pulse Ox 95 06/10/22 08:00 FiO2 Intake & Output 06/09/22 06/10/22 06/10/22 18:59 06:59 18:59 Output Total 800 850 Balance -800 -850 Output: Urine 800 850 Other: Voiding Method Indwelling Catheter Indwelling Catheter Indwelling Catheter - Exam GENERAL DESCRIPTION: An elderly female lying in bed in no distress RESPIRATORY SYSTEM: Unlabored breathing , decreased breath sounds at bases HEART: S1 S2 regular rate and rhythm , ABDOMEN: Soft , no tenderness EXTREMITIES: Diffuse swelling to the both legs no drainage - Labs CBC & Chem 7: 06/13/22 10:44 06/18/22 10:33 Labs: Abnormal Lab Results - Last 24 Hours (Table) 06/09/22 06/09/22 06/10/22 Range/Units 16:52 21:22 04:43 POC Glucose (mg/dL) 245 H 269 H (70-110) mg/dL HDL Cholesterol 66.30 H (40.00-60.00) mg/dL 06/10/22 06/10/22 Range/Units 06:08 11:48 POC Glucose (mg/dL) 135 H 222 H (70-110) mg/dL HDL Cholesterol (40.00-60.00) mg/dL Assessment and Plan (1) Nonhealing ulcer of left lower extremity with fat layer exposed Status: Acute Code(s): L97.922 - NON-PRS [facility] ULC UNSP PRT OF L LOW LEG W FAT LAYER EXPOSED SNOMED Code(s): 12922572 (2) Nonhealing ulcer of right lower extremity with fat layer exposed Status: Acute Code(s): L97.912 - NON-PRS [facility] ULC UNSP PRT OF R LOW LEG W FAT LAYER EXPOSED SNOMED Code(s): 75313776 (3) Pressure injury of coccygeal region, stage 2 Status: Acute Code(s): L89.152 - PRESSURE ULCER OF SACRAL REGION, STAGE 2 SNOMED Code(s): 854897906 (4) Pressure ulcer of left buttock, stage 2 Status: Acute Code(s): L89.322 - PRESSURE ULCER OF LEFT BUTTOCK, STAGE 2 SNOMED Code(s): 40802604610218 Plan: 1patient did have a stage II pressure ulcer to the sacral and gluteal area with no slough tissue no surrounding redness we will recommend local wound care with the dry Aquacel silver dressing change daily 48-hour. 2patient did have a right lower extremity some swelling no significant redness open wound or any drainage , patient has been advised compression dressing to keep the swelling down. 3patient with no fever or elevated white count clinically doubt infectious luis ology, patient is currently being monitored closely off antibiotic therapy at this point.
--- NOTE | 2022-06-25 11:01 | P.PN ---
Subjective Progress Note Date: 06/11/22 Principal diagnosis: Multiple wounds Patient is a 81-year-old female with a past medical history significant for COPD diabetes mellitus hypertension hyperlipidemia heart failure with has been sent to the ER for evaluation of increasing weakness , patient was noticed to have a sacral and gluteal wounds from previous infectious disease consultation. On today's evaluation that is 06/11/2022,the patient continues to be afebrile patient is currently breathing comfortably on 3 L nasal cannula, the denies any chest pain , the patient did have occasional cough but no sputum production no nausea no vomiting no abdominal pain no diarrhea reported by the nursing staff Objective - Vital Signs Vital signs: Vital Signs Temp 97.4 F L 06/11/22 14:27 Pulse 65 06/11/22 14:27 Resp 18 06/11/22 14:27 BP 121/50 06/11/22 14:27 Pulse Ox 95 06/11/22 14:27 FiO2 Intake & Output 06/10/22 06/11/22 06/11/22 18:59 06:59 18:59 Output Total 1999 550 Balance -1999 -550 Weight 103.419 kg Output: Urine 1999 550 Stool 0 Other: Voiding Method Indwelling Catheter Indwelling Catheter Indwelling Catheter - Exam GENERAL DESCRIPTION: An elderly female lying in bed in no distress RESPIRATORY SYSTEM: Unlabored breathing , decreased breath sounds at bases HEART: S1 S2 regular rate and rhythm , ABDOMEN: Soft , no tenderness EXTREMITIES: Diffuse swelling to the both legs no drainage - Labs CBC & Chem 7: 06/13/22 10:44 06/18/22 10:33 Labs: Abnormal Lab Results - Last 24 Hours (Table) 06/10/22 06/10/22 06/11/22 Range/Units 04:43 20:57 03:35 Potassium 5.3 H (3.5-5.1) mmol/L Chloride 111 H 115 H (96-109) mmol/L Carbon Dioxide 15.6 L (20.0-27.5) mmol/L BUN 37.7 H 35 H (9.0-27.0) mg/dL Creatinine 1.44 H (0.52-1.04) mg/dL Est GFR (CKD-EPI)AfAm 37.5 L (60.0-200.0) Est GFR (CKD-EPI)NonAf 32.3 L (60.0-200.0) BUN/Creatinine Ratio 25.13 H (12.00-20.00) Ratio Glucose 115 H 100 H (70-110) mg/dL POC Glucose (mg/dL) 183 H (70-110) mg/dL 06/11/22 06/11/22 06/11/22 Range/Units 06:14 11:15 11:29 Potassium (3.5-5.1) mmol/L Chloride (96-109) mmol/L Carbon Dioxide (20.0-27.5) mmol/L BUN (9.0-27.0) mg/dL Creatinine (0.52-1.04) mg/dL Est GFR (CKD-EPI)AfAm (60.0-200.0) Est GFR (CKD-EPI)NonAf (60.0-200.0) BUN/Creatinine Ratio (12.00-20.00) Ratio Glucose (70-110) mg/dL POC Glucose (mg/dL) 113 H 35 L 40 L (70-110) mg/dL 06/11/22 06/11/22 Range/Units 11:43 12:01 Potassium (3.5-5.1) mmol/L Chloride (96-109) mmol/L Carbon Dioxide (20.0-27.5) mmol/L BUN (9.0-27.0) mg/dL Creatinine (0.52-1.04) mg/dL Est GFR (CKD-EPI)AfAm (60.0-200.0) Est GFR (CKD-EPI)NonAf (60.0-200.0) BUN/Creatinine Ratio (12.00-20.00) Ratio Glucose (70-110) mg/dL POC Glucose (mg/dL) 60 L 66 L (70-110) mg/dL Assessment and Plan (1) Nonhealing ulcer of left lower extremity with fat layer exposed Status: Acute Code(s): L97.922 - NON-PRS [facility] ULC UNSP PRT OF L LOW LEG W FAT LAYER EXPOSED SNOMED Code(s): 69175739 (2) Nonhealing ulcer of right lower extremity with fat layer exposed Status: Acute Code(s): L97.912 - NON-PRS [facility] ULC UNSP PRT OF R LOW LEG W FAT LAYER EXPOSED SNOMED Code(s): 69286456 (3) Pressure injury of coccygeal region, stage 2 Status: Acute Code(s): L89.152 - PRESSURE ULCER OF SACRAL REGION, STAGE 2 SNOMED Code(s): 665000469 (4) Pressure ulcer of left buttock, stage 2 Status: Acute Code(s): L89.322 - PRESSURE ULCER OF LEFT BUTTOCK, STAGE 2 SNOMED Code(s): 96643157883519 Plan: 1patient did have a stage II pressure ulcer to the sacral and gluteal area with no slough tissue no surrounding redness we will recommend local wound care with the dry Aquacel silver dressing change daily 48-hour. 2patient did have a right lower extremity some swelling no significant redness open wound or any drainage , patient has been advised compression dressing to keep the swelling down. 3patient remains to be afebrile and the patient white count is normal, patient is currently being monitored closely off antibiotic therapy
--- NOTE | 2022-06-25 11:02 | P.PN ---
Subjective Progress Note Date: 06/12/22 Principal diagnosis: Multiple wounds Patient is a 81-year-old female with a past medical history significant for COPD diabetes mellitus hypertension hyperlipidemia heart failure with has been sent to the ER for evaluation of increasing weakness , patient was noticed to have a sacral and gluteal wounds from previous infectious disease consultation. On today's evaluation that is 06/12/2022,the patient is afebrile patient is currently breathing comfortably on 3 L nasal cannula, the denies any chest pain , the patient denies any worsening cough or sputum production, no nausea no vomiting no abdominal pain or diarrhea Objective - Vital Signs Vital signs: Vital Signs Temp 97.4 F L 06/12/22 07:52 Pulse 72 06/12/22 11:39 Resp 14 06/12/22 07:55 BP 148/55 06/12/22 07:52 Pulse Ox 100 06/12/22 07:52 FiO2 Intake & Output 06/11/22 06/12/22 06/12/22 18:59 06:59 18:59 Output Total 1000 0 Balance -1000 0 Weight 103.419 kg 102.7 kg Output: Urine 1000 Stool 0 Other: Voiding Method Indwelling Catheter Indwelling Catheter Indwelling Catheter - Exam GENERAL DESCRIPTION: An elderly female lying in bed in no distress RESPIRATORY SYSTEM: Unlabored breathing , decreased breath sounds at bases HEART: S1 S2 regular rate and rhythm , ABDOMEN: Soft , no tenderness EXTREMITIES: Diffuse swelling to the both legs no drainage - Labs CBC & Chem 7: 06/13/22 10:44 06/18/22 10:33 Labs: Abnormal Lab Results - Last 24 Hours (Table) 06/11/22 06/11/22 06/12/22 Range/Units 12:01 19:13 07:31 Chloride 114 H (98-107) mmol/L BUN 33 H (7-17) mg/dL Creatinine 1.18 H (0.52-1.04) mg/dL POC Glucose (mg/dL) 66 L 140 H (70-110) mg/dL 06/12/22 Range/Units 10:42 Chloride (98-107) mmol/L BUN (7-17) mg/dL Creatinine (0.52-1.04) mg/dL POC Glucose (mg/dL) 112 H (70-110) mg/dL Assessment and Plan (1) Nonhealing ulcer of left lower extremity with fat layer exposed Status: Acute Code(s): L97.922 - NON-PRS [facility] ULC UNSP PRT OF L LOW LEG W FAT LAYER EXPOSED SNOMED Code(s): 27843545 (2) Nonhealing ulcer of right lower extremity with fat layer exposed Status: Acute Code(s): L97.912 - NON-PRS [facility] ULC UNSP PRT OF R LOW LEG W FAT LAYER EXPOSED SNOMED Code(s): 31835438 (3) Pressure injury of coccygeal region, stage 2 Status: Acute Code(s): L89.152 - PRESSURE ULCER OF SACRAL REGION, STAGE 2 SN OMED Code(s): 971347486 (4) Pressure ulcer of left buttock, stage 2 Status: Acute Code(s): L89.322 - PRESSURE ULCER OF LEFT BUTTOCK, STAGE 2 SNOMED Code(s): 57849542647316 Plan: 1patient did have a stage II pressure ulcer to the sacral and gluteal area with no slough tissue no surrounding redness we will recommend local wound care with the dry Aquacel silver dressing change daily 48-hour. 2patient did have a right lower extremity some swelling no significant redness open wound or any drainage , patient has been advised compression dressing to keep the swelling down. 3patient continues to be afebrile and white count is normal we'll monitor the patient closely off antibiotics Time with Patient: Less than 30
--- NOTE | 2022-06-25 11:03 | P.PN ---
Subjective Progress Note Date: 06/13/22 Principal diagnosis: Multiple wounds Patient is a 81-year-old female with a past medical history significant for COPD diabetes mellitus hypertension hyperlipidemia heart failure with has been sent to the ER for evaluation of increasing weakness , patient was noticed to have a sacral and gluteal wounds from previous infectious disease consultation. On today's evaluation that is 06/13/2022,the patient denies any fever or any chills, patient is breathing comfortably and remains to be on 3 L nasal cannula, the denies any chest pain , the patient denies any worsening cough or sputum production, no nausea no vomiting no abdominal pain or diarrhea Objective - Vital Signs Vital signs: Vital Signs Temp 97.9 F 06/13/22 13:47 Pulse 68 06/13/22 15:27 Resp 18 06/13/22 13:47 BP 167/76 06/13/22 13:47 Pulse Ox 89 L 06/13/22 13:47 FiO2 Intake & Output 06/12/22 06/13/22 06/13/22 18:59 06:59 18:59 Output Total 1700 1500 Balance -1700 -1500 Weight 103.7 kg Output: Urine 1700 1500 Stool 0 Other: Voiding Method Indwelling Catheter Indwelling Catheter Indwelling Catheter - Exam GENERAL DESCRIPTION: An elderly female lying in bed in no distress RESPIRATORY SYSTEM: Unlabored breathing , decreased breath sounds at bases HEART: S1 S2 regular rate and rhythm , ABDOMEN: Soft , no tenderness EXTREMITIES: Diffuse swelling to the both legs no drainage - Labs CBC & Chem 7: 06/13/22 10:44 06/18/22 10:33 Labs: Abnormal Lab Results - Last 24 Hours (Table) 06/12/22 06/12/22 06/13/22 Range/Units 15:43 19:54 05:57 RBC (3.80-5.40) m/uL Hgb (11.4-16.0) gm/dL Hct (34.0-46.0) % Lymphocytes # (1.0-4.8) k/uL Chloride (98-107) mmol/L BUN (7-17) mg/dL Creatinine (0.52-1.04) mg/dL Glucose (74-99) mg/dL POC Glucose (mg/dL) 171 H 152 H 160 H (70-110) mg/dL Alkaline Phosphatase (38-126) U/L Total Protein (6.3-8.2) g/dL Albumin (3.5-5.0) g/dL 06/13/22 06/13/22 06/13/22 Range/Units 10:44 10:44 11:24 RBC 3.49 L (3.80-5.40) m/uL Hgb 10.0 L (11.4-16.0) gm/dL Hct 31.8 L (34.0-46.0) % Lymphocytes # 0.8 L (1.0-4.8) k/uL Chloride 109 H (98-107) mmol/L BUN 31 H (7-17) mg/dL Creatinine 1.21 H (0.52-1.04) mg/dL Glucose 135 H (74-99) mg/dL POC Glucose (mg/dL) 142 H (70-110) mg/dL Alkaline Phosphatase 128 H (38-126) U/L Total Protein 6.1 L (6.3-8.2) g/dL Albumin 3.0 L (3.5-5.0) g/dL Assessment and Plan (1) Nonhealing ulcer of left lower extremity with fat layer exposed Status: Acute Code(s): L97.922 - NON-PRS [facility] UNSP PRT OF L LOW LEG W FAT LAYER EXPOSED SNOMED Code(s): 94921291 (2) Nonhealing ulcer of right lower extremity with fat layer exposed Status: Acute Code(s): L97.912 - NON-PRS [facility] UNSP PRT OF R LOW LEG W FAT LAYER EXPOSED SNOMED Code(s): 52021714 (3) Pressure injury of coccygeal region, stage 2 Status: Acute Code(s): L89.152 - PRESSURE ULCER OF SACRAL REGION, STAGE 2 SNOMED Code(s): 020532804 (4) Pressure ulcer of left buttock, stage 2 Status: Acute Code(s): L89.322 - PRESSURE ULCER OF LEFT BUTTOCK, STAGE 2 SNOMED Code(s): 47134157867632 Plan: 1patient did have a stage II pressure ulcer to the sacral and gluteal area with no slough tissue no surrounding redness we will recommend local wound care with the dry Aquacel silver dressing change daily 48-hour. 2patient did have a right lower extremity some swelling no significant redness open wound or any drainage , patient has been advised compression dressing to keep the swelling down. 3patient has shown some clinical improvement and we'll monitor the patient closely off antibiotics Time with Patient: Less than 30
--- NOTE | 2022-06-25 11:04 | P.PN ---
Subjective Progress Note Date: 06/14/22 Principal diagnosis: Multiple wounds Patient is a 81-year-old female with a past medical history significant for COPD diabetes mellitus hypertension hyperlipidemia heart failure with has been sent to the ER for evaluation of increasing weakness , patient was noticed to have a sacral and gluteal wounds from previous infectious disease consultation. On today's evaluation that is 06/14/2022,the patient remains to be afebrile, patient is breathing comfortably on 3 L nasal cannula, the denies any chest pain , the patient did have occasional dry cough no nausea no pain no abdominal pain no diarrhea denies any worsening pain to the sacral or lower extremity Objective - Vital Signs Vital signs: Vital Signs Temp 98.1 F 06/14/22 08:00 Pulse 57 L 06/14/22 08:00 Resp 17 06/14/22 08:00 BP 175/67 06/14/22 08:00 Pulse Ox 96 06/14/22 08:00 FiO2 Intake & Output 06/13/22 06/14/22 06/14/22 18:59 06:59 18:59 Output Total 2200 2100 Balance -2200 -2100 Weight 103.5 kg Output: Urine 2200 2100 Other: Voiding Method Indwelling Catheter Indwelling Catheter Indwelling Catheter - Exam GENERAL DESCRIPTION: An elderly female lying in bed in no distress RESPIRATORY SYSTEM: Unlabored breathing , decreased breath sounds at bases HEART: S1 S2 regular rate and rhythm , ABDOMEN: Soft , no tenderness EXTREMITIES: Diffuse swelling to the both legs no drainage - Labs CBC & Chem 7: 06/13/22 10:44 06/18/22 10:33 Labs: Abnormal Lab Results - Last 24 Hours (Table) 06/13/22 06/13/22 06/14/22 Range/Units 16:32 19:13 04:58 Carbon Dioxide 33 H (22-30) mmol/L BUN 33 H (7-17) mg/dL Creatinine 1.51 H (0.52-1.04) mg/dL Glucose 110 H (74-99) mg/dL POC Glucose (mg/dL) 155 H 237 H (70-110) mg/dL 06/14/22 Range/Units 11:26 Carbon Dioxide (22-30) mmol/L BUN (7-17) mg/dL Creatinine (0.52-1.04) mg/dL Glucose (74-99) mg/dL POC Glucose (mg/dL) 163 H (70-110) mg/dL Assessment and Plan (1) Nonhealing ulcer of left lower extremity with fat layer exposed Status: Acute Code(s): L97.922 - NON-PRS CHR ULC UNSP PRT OF L LOW LEG W FAT LAYER EXPOSED SNOMED Code(s): 10176312 (2) Nonhealing ulcer of right lower extremity with fat layer exposed Status: Acute Code(s): L97.912 - NON-PRS CHR ULC UNSP PRT OF R LOW LEG W FAT LAYER EXPOSED SNOMED Code(s): 14256156 (3) Pressure injury of coccygeal region, stage 2 Status: Acute Code(s): L89.152 - PRESSURE ULCER OF SACRAL REGION, STAGE 2 SNOMED Code(s): 296667487 (4) Pressure ulcer of left buttock, stage 2 Status: Acute Code(s): L89.322 - PRESSURE ULCER OF LEFT BUTTOCK, STAGE 2 SNOMED Code(s): 65021080896595 Plan: 1patient did have a stage II pressure ulcer to the sacral and gluteal area with no slough tissue no surrounding redness we will recommend local wound care with the dry Aquacel silver dressing change daily 48-hour. 2patient did have a right lower extremity some swelling no significant redness open wound or any drainage , patient has been advised compression dressing to keep the swelling down. 3patient seemed to have done well off antibiotic therapy has recommended no antibiotic at this point ID service will see the patient as needed. Call back if any question regarding infectious diseases care
--- NOTE | 2022-07-25 22:12 | MISC ---
MISCELLANOUS REPORT Cellulitis due to diabetes and venous stasis disease. MMODL / IJN: [id number] /
== END 2022-06-18 15:58 | DRG 637 ==
LOC: EC 12:11 → 4SSUR 15:38
PROVIDERS: ADMIT Family Medicine; ATTEND Family Medicine
PROC: 05HB33Z Insertion of Infusion Device into Right Basilic Vein, Percutaneous Approach (ICD-10-PCS; 2022-06-10 16:25)
PROC: 05HC33Z Insertion of Infusion Device into Left Basilic Vein, Percutaneous Approach (ICD-10-PCS; principal; 2022-06-11 09:30)
DX: E11.628 Type 2 diabetes mellitus with other skin complications (principal); I50.33 Acute on chronic diastolic (congestive) heart failure; J18.9 Pneumonia, unspecified organism; L03.116 Cellulitis of left lower limb; L97.912 Non-pressure chronic ulcer of unspecified part of right lower leg with fat layer exposed; L97.922 Non-pressure chronic ulcer of unspecified part of left lower leg with fat layer exposed; E87.20 Acidosis, unspecified; I13.2 Hypertensive heart and chronic kidney disease with heart failure and with stage 5 chronic kidney disease, or end stage renal disease; J44.0 Chronic obstructive pulmonary disease with (acute) lower respiratory infection; L03.115 Cellulitis of right lower limb; N17.9 Acute kidney failure, unspecified; N18.30 Chronic kidney disease, stage 3 unspecified; I95.9 Hypotension, unspecified; I65.21 Occlusion and stenosis of right carotid artery; I27.20 Pulmonary hypertension, unspecified; L89.152 Pressure ulcer of sacral region, stage 2; L89.322 Pressure ulcer of left buttock, stage 2; E66.01 Morbid (severe) obesity due to excess calories; E11.649 Type 2 diabetes mellitus with hypoglycemia without coma; I87.2 Venous insufficiency (chronic) (peripheral); D63.1 Anemia in chronic kidney disease; R62.7 Adult failure to thrive; E11.65 Type 2 diabetes mellitus with hyperglycemia; E11.22 Type 2 diabetes mellitus with diabetic chronic kidney disease; E03.9 Hypothyroidism, unspecified; E11.319 Type 2 diabetes mellitus with unspecified diabetic retinopathy without macular edema; Z68.38 Body mass index [BMI] 38.0-38.9, adult; E11.42 Type 2 diabetes mellitus with diabetic polyneuropathy; D50.9 Iron deficiency anemia, unspecified; I08.0 Rheumatic disorders of both mitral and aortic valves; D53.9 Nutritional anemia, unspecified; M17.0 Bilateral primary osteoarthritis of knee; E53.8 Deficiency of other specified B group vitamins; E78.5 Hyperlipidemia, unspecified; E86.0 Dehydration; R42 Dizziness and giddiness; R53.81 Other malaise; E86.1 Hypovolemia; R29.6 Repeated falls; I87.8 Other specified disorders of veins; Z87.01 Personal history of pneumonia (recurrent); K59.00 Constipation, unspecified; K52.9 Noninfective gastroenteritis and colitis, unspecified; Z79.4 Long term (current) use of insulin; Z79.51 Long term (current) use of inhaled steroids; Z79.890 Hormone replacement therapy; Z79.899 Other long term (current) drug therapy; Z82.49 Family history of ischemic heart disease and other diseases of the circulatory system; Z87.891 Personal history of nicotine dependence; Z88.0 Allergy status to penicillin
CPT/HCPCS: 36410; 36415; 36600; 51798; 70450; 71045; 71046; 76937; 80048; 80053; 80061; 80306; 81001; 82140; 82607; 82728; 82746; 82805; 83036; 83540; 83550; 83605; 83735; 83880; 84484; 85025; 85027; 85610; 85730; 93005; 93306; 93880; 94640; 94760; 96360; 96361; 99291

== ENCOUNTER 2023-04-18 08:15 | Inpatient (IN) | payer MEDICARE, OTHER ==
[2023-04-18] MEDS ORDERED: SODIUM CHLORIDE 0.9% 500 ML 500 ML IV STA (08:28)
--- NOTE | 2023-04-18 08:37 | ED ---
General Adult HPI - General Stated complaint: Fall, No Thinners Time Seen by Provider: 04/18/23 08:20 Source: patient, RN notes reviewed, old records reviewed - History of Present Illness Initial comments: This is an 82-year-old female who presents emergency Department because she has been getting progressively weak over the last 2 weeks and today she was unable to stand she slid out of her chair onto the ground. Patient states she has no pain she denies any chest pain or abdominal pain. Patient denies any headache. Patient denies any focal weakness. Patient states she has a history of bilateral leg edema and wounds but she is unable to get out of her house so she has not followed up with wound care. Patient denies any recent fever chills per patient denies any nausea vomiting diarrhea. Patient's only complaint is that she is getting weaker and weaker and now unable to get around in her own apartment and she lives by herself - Related Data Home Medications Medication Instructions Recorded Confirmed Levothyroxine Sodium 100 mcg PO DAILY 10/02/19 06/07/22 Acetaminophen [Tylenol Arthritis] 650 mg PO TID PRN 06/07/22 06/07/22 Fluticasone/Vilanterol [Breo 2 puff INHALATION RT-BID 06/07/22 06/07/22 Ellipta 100-25 Mcg Inhaler] amLODIPine [Norvasc] 5 mg PO DAILY 06/07/22 06/07/22 carvediloL [Coreg] 6.25 mg PO BID 06/07/22 06/07/22 Previous Rx's Medication Instructions Recorded Acetaminophen Tab [Tylenol] 650 mg PO Q4HR PRN tab 06/17/22 Cyanocobalamin [Vitamin B-12] 1,000 mcg PO DAILY 90 Days #90 tab 06/17/22 Ferrous Sulfate [Iron (65 MG 325 mg PO BID-W/MEALS #120 tab 06/17/22 Elemental)] Folic Acid 1 mg PO DAILY #90 tab 06/17/22 Ipratropium-Albuterol Nebulize 3 ml INHALATION RT-QID 90 Days 06/17/22 [Duoneb 0.5 mg-3 mg/3 ml Soln] #120 each Sacubitril/Valsartan [Entresto 97 1 each PO BID 90 Days #60 tab 06/17/22 mg-103 mg Tablet] metOLazone [Zaroxolyn] 5 mg PO DAILY #90 tab 06/17/22 INSULIN ASPART (NovoLOG) [NovoLOG 0 unit SQ ACHS each 06/18/22 (formulary)] Insulin Detemir (Levemir) [Levemir] 6 unit SQ DAILY@0700 each 06/18/22 Torsemide [Demadex] 20 mg PO DAILY tab 06/18/22 Allergies Allergy/AdvReac Type Severity Reaction Status Date / Time Penicillins Allergy Rash/Hives Verified 04/18/23 08:35 Review of Systems ROS Statement: Those systems with pertinent positive or pertinent negative responses have been documented in the HPI. ROS Other: All systems not noted in ROS Statement are negative. Past Medical History Past Medical History: Heart Failure, COPD, Diabetes Mellitus, GERD/Reflux, Hyperlipidemia, Hypertension, Osteoarthritis (OA), Pneumonia, Skin Disorder, Thyroid Disorder Additional Past Medical History / Comment(s): IDDM type II, neuropathy L hand, bilateral lower leg venostasis/dermatitis/cellulitis/ulcers/edema, FALLS, weakness, arthritis bilateral knees, vertigo, hypothyroid History of Any Multi-Drug Resistant Organisms: None Reported Past Surgical History: Breast Surgery, Cholecystectomy, Tonsillectomy Additional Past Surgical History / Comment(s): Benign mass removed from neck, R breast benign biopsy, R eye laser surgery/pt cannot recall reason. Past Anesthesia/Blood Transfusion Reactions: No Reported Reaction Past Psychological History: No Psychological Hx Reported Additional Psychological History / Comment(s): [Pt recently was at [facility] for rehab and was discharged from there on 07/05/21. She is to establish with Residential home care. Her [facility] and [facility] live nearby and assist pt with getting groceries, housework. Pt states she can no longer get out of her 2 story home d/t stairs at both doors. She lives on the first floor. She gets meals on wheels. She ambulates with a walker. She manages her own medications and sponge bathes and dresses herself.] Smoking Status: Former smoker Past Alcohol Use History: None Reported Additional Past Alcohol Use History / Comment(s): Pt started smoking in 1959 and quit in 1999 Past Drug Use History: None Reported - Past Family History Father Family Medical History: Hypertension, Myocardial Infarction (CO) Additional Family Medical History / Comment(s): X3 CO, Mother Family Medical History: Cancer Additional Family Medical History / Comment(s): DIES FROM COLON [place] General Exam - General Exam Comments Initial Comments: GENERAL: Patient is well-developed and well-nourished. Patient is nontoxic and well- hydrated and is in mild distress. ENT: Neck is soft and supple. No significant lymphadenopathy is noted. Oropharynx is clear. Moist mucous membranes. Neck has full range of motion without eliciting any pain. EYES: The sclera were anicteric and conjunctiva were pink and moist. Extraocular movements were intact and pupils were equal round and reactive to light. Eyelids were unremarkable. PULMONARY: Unlabored respirations. Good breath sounds bilaterally. No audible rales rhonchi or wheezing was noted. CARDIOVASCULAR: There is a regular rate and rhythm without any murmurs gallops or rubs. ABDOMEN: Soft and nontender with normal bowel sounds. SKIN: Patient has an open wound on the anterior aspect of the right ankle and the lateral aspect of the left ankle neither look acutely infected NEUROLOGIC: Patient is alert and oriented x3. Cranial nerves II through XII are grossly intact. Motor and sensory are also intact. Normal speech, volume and content. Symmetrical smile. MUSCULOSKELETAL: Normal extremities with adequate strength and full range of motion. LYMPHATICS: No significant lymphadenopathy is noted PSYCHIATRIC: Normal psychiatric evaluation. Course Vital Signs 04/18/23 08:17 Temperature 97.4 F L Pulse Rate 72 Respiratory 18 Rate Blood Pressure 144/44 O2 Sat by Pulse 95 Oximetry Medical Decision Making - Medical Decision Making EKG was interpreted by myself. EKG shows sinus rhythm at 75 bpm TN interval 172 QRS is 87 Q-T intervals 380 QTC is 49 per patient's EKG shows no ST segment elevation or depression. Was pt. sent in by a medical professional or institution (, PA, BACK SEWER, urgent care, hospital, or intermediate...) When possible be specific @ -No Did you speak to anyone other than the patient for history (EMS, parent, family, police, friend...)? What history was obtained from this source @ -No Did you review nursing and triage notes (agree or disagree)? Why? @ -I reviewed and agree with nursing and triage notes Were old charts reviewed (outside hosp., previous admission, EMS record, old EKG, old radiological studies, urgent care reports/EKG's, intermediate records)? Report findings @ -I reviewed prior charts in prior laboratory on this patient Differential Diagnosis (chest pain, altered mental status, abdominal pain women, abdominal pain men, vaginal bleeding, weakness, fever, dyspnea, syncope, headache, dizziness, GI bleed, back pain, seizure, CVA, palpatations, mental health, musculoskeletal)? @ -Differential Weakness: Hypoglycemia, shock, sepsis, hyponatremia, anemia, infection, CO, ETOH, adverse medicine reaction, overdose, stroke, this is not meant to be an all-inclusive list. EKG interpreted by me (3pts min.). @ -As above X-rays interpreted by me (1pt min.). @ -Chest x-ray shows no acute abnormality CT interpreted by me (1pt min.). @ -None done U/S interpreted by me (1pt. min.). @ -None done What testing was considered but not performed or refused? (CT, X-rays, U/S, labs)? Why? @ -None What meds were considered but not given or refused? Why? @ -None Did you discuss the management of the patient with other professionals (professionals i.e. , PA, BACK SEWER, lab, RT, psych nurse, protective services social worker, gleason operator, teacher, chemistry technical officer, manager rn case)? Give summary @ -I spoke with Dr. Watters and he agreed to admit the patient admitted the patient wrote admitting orders Was smoking cessation discussed for >3mins.? @ -No Was critical care preformed (if so, how long)? @ -No Were there social determinants of health that impacted care today? How? (Homelessness, low income, unemployed, alcoholism, drug addiction, transportation, low edu. Level, literacy, decrease access to med. care, penitentiary, rehab)? @ -No Was there de-escalation of care discussed even if they declined (Discuss DNR or withdrawal of care, Hospice)? DNR status @ -No What co-morbidities impacted this encounter? (DM, HTN, Smoking, COPD, CAD, Cancer, CVA, ARF, Chemo, Hep., AIDS, mental health diagnosis, sleep apnea, morbid obesity)? @ -None Was patient admitted / discharged? Hospital course, mention meds given and ro [place], prescriptions, significant lab abnormalities, going to OR and other pertinent info. @ -Patient had a urinary tract infection was given 2 g Rocephin. Patient also had open wounds needed to be taking care of and patient will be admitted to Dr. Watters in and patient will see Dr. Jackson new problem with uncertain prognosis? @ -No Drug Therapy requiring intensive monitoring for toxicity (Heparin, Nitro, Insulin, Cardizem)? @ -No Were any procedures done? @ -No Diagnosis/symptom? @ -Urinary tract infection Acute, or Chronic, or Acute on Chronic? @ -Acute Uncomplicated (without systemic symptoms) or Complicated (systemic symptoms)? @ -Complicated Side effects of treatment? @ -No Exacerbation, Progression, or Severe Exacerbation? @ -No Poses a threat to life or bodily function? How? (Chest pain, [place], CO, pneumonia, PE, COPD, DKA, ARF, appy, cholecystitis, CVA, Diverticulitis, Homicidal, Suicidal, threat to staff... and all critical care pts) @ -No Diagnosis/symptom? @ -Generalized weakness Acute, or Chronic, or Acute on Chronic? @ -Acute Uncomplicated (without systemic symptoms) or Complicated (systemic symptoms)? @ -default Side effects of treatment? @ -none Exacerbation, Progression, or Severe Exacerbation] @ -no Poses a threat to life or bodily function? @ -no Diagnosis/symptom? @ -Chronic wounds legs Acute, or Chronic, or Acute on Chronic? @ -Chronic Uncomplicated (without systemic symptoms) or Complicated (systemic symptoms)? @ -default Side effects of treatment? @ -none Exacerbation, Progression, or Severe Exacerbation] @ -no Poses a threat to life or bodily function? @ -no - Lab Data Result diagrams: 04/18/23 08:33 04/18/23 08:33 Lab Results 04/18/23 04/18/23 04/18/23 Range/Units 08:33 08:33 08:33 WBC 6.3 (3.8-10.6) k/uL RBC 3.69 L (3.80-5.40) m/uL Hgb 10.4 L (11.4-16.0) gm/dL Hct 33.9 L (34.0-46.0) % MCV 91.9 (80.0-100.0) fL MCH 28.3 (25.0-35.0) pg MCHC 30.8 L (31.0-37.0) g/dL RDW 15.2 (11.5-15.5) % Plt Count 254 (150-450) k/uL MPV 7.7 Neutrophils % 69 % Lymphocytes % 16 % Monocytes % 9 % Eosinophils % 4 % Basophils % 1 % Neutrophils # 4.4 (1.3-7.7) k/uL Lymphocytes # 1.0 (1.0-4.8) k/uL Monocytes # 0.6 (0-1.0) k/uL Eosinophils # 0.3 (0-0.7) k/uL Basophils # 0.0 (0-0.2) k/uL Hypochromasia Marked PT 10.5 (9.0-12.0) sec INR 1.0 (<1.2) APTT 24.6 (22.0-30.0) sec Sodium (137-145) mmol/L Potassium (3.5-5.1) mmol/L Chloride (98-107) mmol/L Carbon Dioxide (22-30) mmol/L Anion Gap mmol/L BUN (7-17) mg/dL Creatinine (0.52-1.04) mg/dL Est GFR (CKD-EPI)AfAm (>60 ml/min/1.73 sqM) Est GFR (CKD-EPI)NonAf (>60 ml/min/1.73 sqM) Glucose (74-99) mg/dL Plasma Lactic Acid Yvan (0.7-2.0) mmol/L Calcium (8.4-10.2) mg/dL Magnesium (1.6-2.3) mg/dL Total Bilirubin (0.2-1.3) mg/dL AST (14-36) U/L ALT (4-34) U/L Alkaline Phosphatase (38-126) U/L Troponin I (0.000-0.034) ng/mL Total Protein (6.3-8.2) g/dL Albumin (3.5-5.0) g/dL Urine Color Light Yellow Urine Appearance Clear (Clear) Urine pH 5.0 (5.0-8.0) Ur Specific [place] 1.017 (1.001-1.035) Urine Protein 1+ H (Negative) Urine Glucose (UA) Negative (Negative) Urine Ketones Negative (Negative) Urine Blood Negative (Negative) Urine Nitrite Negative (Negative) Urine Bilirubin Negative (Negative) Urine Urobilinogen <2.0 (<2.0) mg/dL Ur Leukocyte Esterase Moderate H (Negative) Urine RBC 3 (0-5) /hpf Urine WBC 30 H (0-5) /hpf Ur Squamous Epith Cells 1 (0-4) /hpf Urine Bacteria Rare H (None) /hpf Urine Mucus Rare H (None) /hpf 04/18/23 04/18/23 04/18/23 Range/Units 08:33 08:33 08:33 WBC (3.8-10.6) k/uL RBC (3.80-5.40) m/uL Hgb (11.4-16.0) gm/dL Hct (34.0-46.0) % MCV (80.0-100.0) fL MCH (25.0-35.0) pg MCHC (31.0-37.0) g/dL RDW (11.5-15.5) % Plt Count (150-450) k/uL MPV Neutrophils % % Lymphocytes % % Monocytes % % Eosinophils % % Basophils % % Neutrophils # (1.3-7.7) k/uL Lymphocytes # (1.0-4.8) k/uL Monocytes # (0-1.0) k/uL Eosinophils # (0-0.7) k/uL Basophils # (0-0.2) k/uL Hypochromasia PT (9.0-12.0) sec INR (<1.2) APTT (22.0-30.0) sec Sodium 141 (137-145) mmol/L Potassium 5.6 H (3.5-5.1) mmol/L Chloride 115 H (98-107) mmol/L Carbon Dioxide 15 L (22-30) mmol/L Anion Gap 11 mmol/L BUN 31 H (7-17) mg/dL Creatinine 1.29 H (0.52-1.04) mg/dL Est GFR (CKD-EPI)AfAm 45 (>60 ml/min/1.73 sqM) Est GFR (CKD-EPI)NonAf 39 (>60 ml/min/1.73 sqM) Glucose 90 (74-99) mg/dL Plasma Lactic Acid Yvan 0.9 (0.7-2.0) mmol/L Calcium 9.7 (8.4-10.2) mg/dL Magnesium 2.2 (1.6-2.3) mg/dL Total Bilirubin 0.6 (0.2-1.3) mg/dL AST 18 (14-36) U/L ALT 8 (4-34) U/L Alkaline Phosphatase 134 H (38-126) U/L Troponin I 0.013 (0.000-0.034) ng/mL Total Protein 7.3 (6.3-8.2) g/dL Albumin 3.6 (3.5-5.0) g/dL Urine Color Urine Appearance (Clear) Urine pH (5.0-8.0) Ur Specific [place] (1.001-1.035) Urine Protein (Negative) Urine Glucose (UA) (Negative) Urine Ketones (Negative) Urine Blood (Negative) Urine Nitrite (Negative) Urine Bilirubin (Negative) Urine Urobilinogen (<2.0) mg/dL Ur Leukocyte Esterase (Negative) Urine RBC (0-5) /hpf Urine WBC (0-5) /hpf Ur Squamous Epith Cells (0-4) /hpf Urine Bacteria (None) /hpf Urine Mucus (None) /hpf Disposition Clinical Impression: Chronic wound of extremity, Urinary tract infection, Generalized weakness Disposition: ADMITTED IP TO THIS HOSP Referrals: Faisal Fleming MD [Primary Care Provider] - 1-2 days Time of Disposition: 10:15
[2023-04-18 08:48] LABS: Basophils % (A) 1 %; Eosinophils # (A) 0.3 k/uL (0-0.7); Eosinophils % (A) 4 %; HCT 33.9 % (34.0-46.0); HGB 10.4 gm/dL (11.4-16.0); Hypochromasia Marked; Lymphocytes % (A) 16 %; MCH 28.3 pg (25.0-35.0); MCHC 30.8 g/dL (31.0-37.0); MCV 91.9 fL (80.0-100.0); Mean Platelet Volume 7.7; Monocytes # (A) 0.6 k/uL (0-1.0); Monocytes % (A) 9 %; Neutrophils # (A) 4.4 k/uL (1.3-7.7); Neutrophils % (A) 69 %; Platelet Count 254 k/uL (150-450); RBC 3.69 m/uL (3.80-5.40); RDW 15.2 % (11.5-15.5); WBC 6.3 k/uL (3.8-10.6)
[2023-04-18 08:57] LABS: Partial Thromboplastin Time 24.6 sec (22.0-30.0); Prothrombin Time 10.5 sec (9.0-12.0)
[2023-04-18 09:09] LABS: ALT 8 U/L (4-34); AST 18 U/L (14-36); African American GFR (CKD) 45 (>60 ml/min/1.73 sqM); Albumin 3.6 g/dL (3.5-5.0); Alkaline Phosphatase 134 U/L (38-126); Anion Gap 11 mmol/L; Blood Urea Nitrogen 31 mg/dL (7-17); Calcium 9.7 mg/dL (8.4-10.2); Carbon Dioxide 15 mmol/L (22-30); Chloride 115 mmol/L (98-107); Glucose 90 mg/dL (74-99); Magnesium 2.2 mg/dL (1.6-2.3); Non-African American GFR(CKD) 39 (>60 ml/min/1.73 sqM); Potassium 5.6 mmol/L (3.5-5.1); Sodium 141 mmol/L (137-145); Total Bilirubin 0.6 mg/dL (0.2-1.3); Total Protein 7.3 g/dL (6.3-8.2)
--- NOTE | 2023-04-18 09:19 | XR ---
EXAMINATION TYPE: XR chest 2V DATE OF EXAM: 04/18/2023 COMPARISON: 06/13/2022 HISTORY: 82-year-old female with weakness TECHNIQUE: AP and lateral views FINDINGS: Heart upper limits of normal in size. Mild interstitial prominence likely chronic. Possible trace eff usion on the left. No janet consolidation or pleural effusion. IMPRESSION: Possible trace left effusion. Borderline heart size. Otherwise, no acute process seen.
[2023-04-18 09:41] LABS: Appearance,Urine Clear (Clear); Bacteria,Urine Rare /hpf; Bilirubin,Urine Negative (Negative); Blood,Urine Negative (Negative); Color,Urine Light Yellow; Glucose,Urine (UA) Negative (Negative); Ketones,Urine Negative (Negative); Leukocyte Esterase,Urine Moderate (Negative); Mucus,Urine Rare /hpf; Nitrite,Urine Negative (Negative); Protein,Urine 1+ (Negative); RBC,Urine 3 /hpf (0-5); Specific Gravity,Urine 1.017 (1.001-1.035); Squamous Epithelial Cell,Urine 1 /hpf (0-4); Urobilinogen,Urine <2.0 mg/dL (<2.0); WBC,Urine 30 /hpf (0-5)
[2023-04-18] MEDS ORDERED: cefTRIAXone IN SWFI 1,000 MG/10 ML SYRINGE IVP STA (10:04)
[2023-04-18] MEDS ORDERED: KETOROLAC 15 MG/ML 1 ML VIAL IVP STA (10:11)
[2023-04-18 17:18] LABS: Glucose,Whole Blood 115 mg/dL (70-110)
[2023-04-18 20:44] LABS: Glucose,Whole Blood 187 mg/dL (70-110)
[2023-04-18] MEDS: carvediloL 3.125 MG TAB PO SCH (21:51)
[2023-04-18] MEDS: SACUBITRIL/VALSARTAN 24 MG-26 MG TABLET PO SCH (21:51)
[2023-04-18] MEDS: INSULN ASP PRT/INSULIN ASPART 100 UNIT/ML 10 ML VIAL SQ SCH (21:52)
[2023-04-19] MEDS: LEVOTHYROXINE 100 MCG TAB PO SCH (05:48)
[2023-04-19] MEDS ORDERED: VANCOMYCIN IV PER PHARMACY 1 EACH MISC MISCELLANE PRN (06:00)
[2023-04-19] MEDS ORDERED: VANCOMYCIN 1,750 MG in SODIUM CHLORIDE 0.9% 500 ML 500 ML IVPB ONE (06:15)
[2023-04-19 07:35] LABS: Glucose,Whole Blood 82 mg/dL (70-110)
[2023-04-19] MEDS: INSULN ASP PRT/INSULIN ASPART 100 UNIT/ML 10 ML VIAL SQ SCH ×2 (08:45→20:40)
[2023-04-19] MEDS: metOLazone 5 MG TAB PO SCH (09:50)
[2023-04-19] MEDS: SACUBITRIL/VALSARTAN 24 MG-26 MG TABLET PO SCH ×2 (09:51→20:40)
[2023-04-19] MEDS: amLODIPine 5 MG TAB PO SCH (09:51)
[2023-04-19] MEDS: FUROSEMIDE 40 MG TAB PO SCH (09:51)
[2023-04-19] MEDS: carvediloL 3.125 MG TAB PO SCH ×2 (09:51→20:40)
[2023-04-19] MEDS: ATORVASTATIN 40 MG TAB PO SCH (09:51)
[2023-04-19] MEDS: TORSEMIDE 20 MG TAB PO SCH (09:51)
[2023-04-19 10:40] LABS: African American GFR (CKD) 54 (>60 ml/min/1.73 sqM); Non-African American GFR(CKD) 47 (>60 ml/min/1.73 sqM)
[2023-04-19 12:25] LABS: Glucose,Whole Blood 80 mg/dL (70-110)
[2023-04-19 17:46] LABS: Glucose,Whole Blood 150 mg/dL (70-110)
[2023-04-19 20:26] LABS: Glucose,Whole Blood 185 mg/dL (70-110)
[2023-04-19] MEDS: IPRATROPIUM-ALBUTEROL 3 ML NEB INHALATION PRN (21:04)
--- NOTE | 2023-04-19 23:48 | P.CONS ---
History of Present Illness - Reason for Consult Consult date: 04/19/23 Wounds Requesting physician: Tristen Bull - Chief Complaint Weakness and nonhealing wound x days - History of Present Illness Patient is a 82-year-old female with a past medical history significant for Heart Failure, COPD, Diabetes Mellitus, GERD/Reflux, Hyper lipidemia, Hypertension, Osteoarthritis (OA), Pneumonia, Skin Disorder, Thyroid Disorder, bilateral lower extremity venous stasis ulcer and history of cellulitis patient presenting to the ER yesterday morning for evaluation of progressive weakness over the last 2 weeks and the patient says she was unable to stand so she slid out of her chair onto the ground patient denies hitting her head or losing any consciousness patient did have a bilateral lower extremity wounds for the patient mention and has not been able to follow-up in the wound care center patient denies high-grade fever or any chills and no fever was recorded during this hospital stay patient did have a normal white count BUN and creatinine has been mildly elevated liver enzymes are normal urine was mildly positive patient did have a chest x-ray possible trace left effusion blood cultures were drawn came back positive with Staph aureus patient was started on vancomycin infectious disease was consulted for further management of antibiotic therapy, patient currently denies having any headache or URI symptoms no chest pain shortness of breath or cough no nausea vomiting no abdominal pain or diarrhea patient did have nonhealing wound to bilateral lower extremities patient with right leg with evidence of slough tissue surrounding swelling redness patient did have mild dull aching pain to the lower extremity wounds especially the right leg intensity is about 5-10 with no radiation did have some purulent drainage and minimal foul-smelling Review of Systems Positive point and negatives has been mentioned in the HPI, complete review of systems was performed and all other systems are negative Past Medical History Past Medical History: Heart Failure, COPD, Diabetes Mellitus, GERD/Reflux, Hyperlipidemia, Hypertension, Osteoarthritis (OA), Pneumonia, Skin Disorder, Thyroid Disorder Additional Past Medical History / Comment(s): IDDM type II, neuropathy L hand, bilateral lower leg venostasis/dermatitis/cellulitis/ulcers/edema, FALLS, weakness, arthritis bilateral knees, vertigo, hypothyroid History of Any Multi-Drug Resistant Organisms: None Reported Past Surgical History: Breast Surgery, Cholecystectomy, Tonsillectomy Additional Past Surgical History / Comment(s): Benign mass removed from neck, R breast benign biopsy, R eye laser surgery/pt cannot recall reason. Past Anesthesia/Blood Transfusion Reactions: No Reported Reaction Past Psychological History: No Psychological Hx Reported Additional Psychological History / Comment(s): [Pt recently was at [facility] for rehab and was discharged from there on 07/05/21. She is to establish with Residential home care. [facility] and assist pt with getting groceries, housework. Pt states she can no longer get out of her 2 story home d/t stairs at both doors. She lives on the first floor. She gets meals on wheels. She ambulates with a walker. She manages her own medications and sponge bathes and dresses herself.] Smoking Status: Former smoker Past Alcohol Use History: None Reported Additional Past Alcohol Use History / Comment(s): Pt started smoking in 1958 and quit in 1999 Past Drug Use History: None Reported - Past Family History Father Family Medical History: Hypertension, Myocardial Infarction ([place]) Additional Family Medical History / Comment(s): X3 [place], Mother Family Medical History: Cancer Additional Family Medical History / Comment(s): DIES FROM [place] Medications and Allergies Home Medications Medication Instructions Recorded Confirmed Type Levothyroxine Sodium 100 mcg PO DAILY 10/02/19 04/18/23 History amLODIPine [Norvasc] 5 mg PO DAILY 06/07/22 04/18/23 History Torsemide [Demadex] 20 mg PO DAILY tab 06/18/22 04/18/23 Rx Atorvastatin Calcium [Lipitor] 40 mg PO DAILY 04/18/23 04/18/23 History Furosemide [Lasix] 40 mg PO DAILY 04/18/23 04/18/23 History Insulin Aspart Prot/Insuln Asp 10 unit SQ HS 04/18/23 04/18/23 History [Novolog MIX 70-30 Flexpen] Insulin NPH Hum/Reg Insulin Hm 28 units SQ DAILY 04/18/23 04/18/23 History [Novolin 70-30 Flexpen] Sacubitril/Valsartan [Entresto 24 1 tab PO BID 04/18/23 04/18/23 History mg-26 mg Tablet] carvediloL [Coreg] 3.125 mg PO BID 04/18/23 04/18/23 History metOLazone [Zaroxolyn] 5 mg PO DAILY 04/18/23 04/18/23 History Allergies Allergy/AdvReac Type Severity Reaction Status Date / Time Penicillins Allergy Rash/Hives Verified 04/18/23 11:30 Physical Exam Vitals: Vital Signs Temp Pulse Pulse Resp BP BP Pulse Ox 04/19/23 07:26 98.2 F 60 20 155/63 96 04/19/23 02:05 97.4 F L 61 20 166/54 97 04/18/23 19:09 97.5 F L 74 18 136/64 90 L 04/18/23 15:45 97.7 F 74 18 169/79 91 L 04/18/23 15:31 61 18 142/84 96 04/18/23 13:53 69 18 164/76 93 L 04/18/23 10:20 79 17 160/68 92 L 04/18/23 10:00 78 12 93 L Intake and Output 04/18/23 04/19/23 04/19/23 22:59 06:59 14:59 Intake Total 240 Output Total 750 300 Balance -510 -300 Intake: Oral 240 Output: Urine 750 300 Other: Voiding Method External Catheter # Voids 1 GENERAL DESCRIPTION: Elderly female lying in bed, no distress. No tachypnea or accessory muscle of respiration use. HEENT: Shows Pallor , no scleral icterus. Oral mucous membrane is dry. No pharyngeal erythema or thrush NECK: Trachea central, no thyromegaly. LUNGS: Unlabored breathing. Clear to auscultation anteriorly. No wheeze or crackle. HEART: S1, S2, regular rate and rhythm. No loud murmur ABDOMEN: Soft, no tenderness , guarding or rigidity, no organomegaly EXTREMITIES: Right lower extremity wounds 2 with some greenish drainage, left lower extremity to have some superficial ulceration and drainage plus redness SKIN: No rash, no masses palpable. NEUROLOGICAL: The patient is awake, alert, oriented x3, mood and affect normal. Results CBC & Chem 7: 04/18/23 08:33 04/19/23 10:15 Labs: Abnormal Lab Results - Last 24 Hours (Table) 04/18/23 04/18/23 04/18/23 Range/Units 08:33 08:33 17:17 Potassium 5.6 H (3.5-5.1) mmol/L Chloride 115 H (98-107) mmol/L Carbon Dioxide 15 L (22-30) mmol/L BUN 31 H (7-17) mg/dL Creatinine 1.29 H (0.52-1.04) mg/dL POC Glucose (mg/dL) 115 H (70-110) mg/dL Alkaline Phosphatase 134 H (38-126) U/L Urine Protein 1+ H (Negative) Ur Leukocyte Esterase Moderate H (Negative) Urine WBC 30 H (0-5) /hpf Urine Bacteria Rare H (None) /hpf Urine Mucus Rare H (None) /hpf 04/18/23 Range/Units 20:27 Potassium (3.5-5.1) mmol/L Chloride (98-107) mmol/L Carbon Dioxide (22-30) mmol/L BUN (7-17) mg/dL Creatinine (0.52-1.04) mg/dL POC Glucose (mg/dL) 187 H (70-110) mg/dL Alkaline Phosphatase (38-126) U/L Urine Protein (Negative) Ur Leukocyte Esterase (Negative) Urine WBC (0-5) /hpf Urine Bacteria (None) /hpf Urine Mucus (None) /hpf Microbiology - Last 24 Hours (Table) 04/18/23 08:33 Blood Culture Gram Stain - Preliminary Blood Assessment and Plan (1) Leg wound, right Current Visit: Yes Status: Acute Code(s): S81.801A - UNSPECIFIED OPEN WOUND, RIGHT LOWER LEG, INITIAL ENCOUNTER SNOMED Code(s): 004764249 (2) Bilateral lower leg cellulitis Current Visit: Yes Status: Acute Code(s): L03.116 - CELLULITIS OF LEFT LOWER LIMB; L03.115 - CELLULITIS OF RIGHT LOWER LIMB SNOMED Code(s): 784970945 (3) MSSA bacteremia Current Visit: Yes Status: Acute Code(s): R78.81 - BACTEREMIA; B95.61 - METHICILLIN SUSCEP [facility] Code(s): 060850131 (4) Penicillin allergy Current Visit: Yes Status: Acute Code(s): Z88.0 - ALLERGY STATUS TO PENICILLIN SNOMED Code(s): 86533953 Plan: 1patient presented to hospital with weakness and fall also noticed to having worsening wound especially to the right lower extremity with cellulitis and some purulent drainage likely component of wound infection and cellulitis likely from gram-positive skin belinda 2-patient with Staph aureus bacteremia source likely lower extremity wound and cellulitis, repeat Blood cultures to document clearance 3-penicillin allergy that will limit the number of antibiotics safe to use 4-renal insufficiency and high risk of nephrotoxicity from vancomycin 5-we will discontinue vancomycin 6-start the patient on cefazolin 2 g every 8 hours 7-local wound care with Aquacel silver dressing followed by Arnoldo wrap from just about the total below the knee change every 24-48 hours depending upon drainage We will follow on clinical condition and cultures to further adjust medication if needed Thank you for this consultation we will follow the patient along with you Dictation was produced using [employer] dictation software. please excuse any grammatical, word or spelling errors. Time with Patient: Greater than 30
[2023-04-20] MEDS: LEVOTHYROXINE 100 MCG TAB PO SCH (05:40)
[2023-04-20] MEDS ORDERED: VANCOMYCIN 1,750 MG in SODIUM CHLORIDE 0.9% 500 ML 500 ML IVPB SCH (06:00)
[2023-04-20 07:43] LABS: Glucose,Whole Blood 92 mg/dL (70-110)
[2023-04-20] MEDS: INSULN ASP PRT/INSULIN ASPART 100 UNIT/ML 10 ML VIAL SQ SCH ×2 (07:53→21:33)
[2023-04-20] MEDS: carvediloL 3.125 MG TAB PO SCH ×2 (08:09→21:33)
[2023-04-20] MEDS: TORSEMIDE 20 MG TAB PO SCH (08:09)
[2023-04-20] MEDS: SACUBITRIL/VALSARTAN 24 MG-26 MG TABLET PO SCH ×2 (08:09→21:33)
[2023-04-20] MEDS: metOLazone 5 MG TAB PO SCH (08:09)
[2023-04-20] MEDS: FUROSEMIDE 40 MG TAB PO SCH (08:09)
[2023-04-20] MEDS: amLODIPine 5 MG TAB PO SCH (08:09)
[2023-04-20] MEDS: ATORVASTATIN 40 MG TAB PO SCH (08:09)
[2023-04-20] MEDS: IPRATROPIUM-ALBUTEROL 3 ML NEB INHALATION PRN ×2 (08:13→11:40)
[2023-04-20 08:14] LABS: Basophils % (A) 1 %; Eosinophils # (A) 0.4 k/uL (0-0.7); Eosinophils % (A) 6 %; HCT 31.6 % (34.0-46.0); HGB 9.5 gm/dL (11.4-16.0); Hypochromasia Marked; Lymphocytes # (A) 0.8 k/uL (1.0-4.8); Lymphocytes % (A) 13 %; MCH 28.2 pg (25.0-35.0); MCHC 30.1 g/dL (31.0-37.0); MCV 93.7 fL (80.0-100.0); Mean Platelet Volume 7.9; Monocytes # (A) 0.6 k/uL (0-1.0); Monocytes % (A) 9 %; Neutrophils # (A) 4.4 k/uL (1.3-7.7); Neutrophils % (A) 71 %; Platelet Count 210 k/uL (150-450); RBC 3.37 m/uL (3.80-5.40); RDW 14.9 % (11.5-15.5); WBC 6.3 k/uL (3.8-10.6)
[2023-04-20 08:28] LABS: ALT <6 U/L (4-34); AST 16 U/L (14-36); African American GFR (CKD) 51 (>60 ml/min/1.73 sqM); Albumin 2.8 g/dL (3.5-5.0); Albumin/Globulin Ratio 0.9; Alkaline Phosphatase 110 U/L (38-126); Anion Gap 7 mmol/L; Blood Urea Nitrogen 26 mg/dL (7-17); C Reactive Protein 2.6 mg/dL (<1.0); Calcium 8.9 mg/dL (8.4-10.2); Carbon Dioxide 18 mmol/L (22-30); Chloride 114 mmol/L (98-107); Globulin 3.1 g/dL; Glucose 92 mg/dL (74-99); Non-African American GFR(CKD) 45 (>60 ml/min/1.73 sqM); Potassium 4.9 mmol/L (3.5-5.1); Sodium 139 mmol/L (137-145); Total Bilirubin 0.4 mg/dL (0.2-1.3); Total Protein 5.9 g/dL (6.3-8.2)
[2023-04-20 12:15] LABS: Glucose,Whole Blood 179 mg/dL (70-110)
--- NOTE | 2023-04-20 13:44 | P.PN ---
Subjective Progress Note Date: 04/20/23 Principal diagnosis: Bilateral lower extremity wound cellulitis and bacteremia Patient is a 82-year-old female with a past medical history significant for Heart Failure, COPD, Diabetes Mellitus, GERD/Reflux, Hyperlipidemia, Hypertension, Osteoarthritis (OA), Pneumonia, Skin Disorder, Thyroid Disorder, bilateral lower extremity venous stasis ulcer and history of cellulitis patient presenting to the ER for evaluation of weakness and fall nonhealing wound to lower extremity cellulitis and the patient also has bacteremia. on today's evaluation that is 04/20/2023, the patient continues to be afebrile, the patient is breathing comfortably on 2 L nasal cannula oxygen, the patient denies chest pain or cough, patient denies abdominal pain and no nausea/vomiting /diarrhea, the patient pain to the lower extremity has decreased in intensity. Patient white count was 6.3, creatinine is 1.15 Objective - Vital Signs Vital signs: Vital Signs Temp 98.0 F 04/20/23 11:39 Pulse 76 04/20/23 12:01 Resp 18 04/20/23 11:39 BP 160/55 04/20/23 11:39 Pulse Ox 98 04/20/23 11:39 FiO2 Intake & Output 04/19/23 04/20/23 04/20/23 18:59 06:59 18:59 Output Total 2100 1000 Balance -2100 -1000 Output: Urine 2100 1000 Other: Voiding Method External Catheter External Catheter External Catheter - Exam GENERAL DESCRIPTION: An elderly female lying in bed in no distress RESPIRATORY SYSTEM: Unlabored breathing , decreased breath sounds at bases HEART: S1 S2 regular rate and rhythm , ABDOMEN: Soft , no tenderness EXTREMITIES: Lower extremity wound is currently dressed with minimal drainage on the dressing - Labs CBC & Chem 7: 04/20/23 07:54 04/20/23 07:54 Labs: Abnormal Lab Results - Last 24 Hours (Table) 04/19/23 04/19/23 04/20/23 Range/Units 17:22 20:25 07:54 RBC 3.37 L (3.80-5.40) m/uL Hgb 9.5 L (11.4-16.0) gm/dL Hct 31.6 L (34.0-46.0) % MCHC 30.1 L (31.0-37.0) g/dL Lymphocytes # 0.8 L (1.0-4.8) k/uL Chloride (98-107) mmol/L Carbon Dioxide (22-30) mmol/L BUN (7-17) mg/dL Creatinine (0.52-1.04) mg/dL POC Glucose (mg/dL) 150 H 185 H (70-110) mg/dL C-Reactive Protein (<1.0) mg/dL Total Protein (6.3-8.2) g/dL Albumin (3.5-5.0) g/dL 04/20/23 04/20/23 Range/Units 07:54 11:41 RBC (3.80-5.40) m/uL Hgb (11.4-16.0) gm/dL Hct (34.0-46.0) % MCHC (31.0-37.0) g/dL Lymphocytes # (1.0-4.8) k/uL Chloride 114 H (98-107) mmol/L Carbon Dioxide 18 L (22-30) mmol/L BUN 26 H (7-17) mg/dL Creatinine 1.15 H (0.52-1.04) mg/dL POC Glucose (mg/dL) 179 H (70-110) mg/dL C-Reactive Protein 2.6 H (<1.0) mg/dL Total Protein 5.9 L (6.3-8.2) g/dL Albumin 2.8 L (3.5-5.0) g/dL Assessment and Plan (1) Leg wound, right Current Visit: Yes Status: Acute Code(s): S81.801A - UNSPECIFIED OPEN WOUND, RIGHT LOWER LEG, INITIAL ENCOUNTER SNOMED Code(s): 171432806 (2) Bilateral lower leg cellulitis Current Visit: Yes Status: Acute Code(s): L03.116 - CELLULITIS OF LEFT LOWER LIMB; L03.115 - CELLULITIS OF RIGHT LOWER LIMB SNOMED Code(s): 156203440 (3) MSSA bacteremia Current Visit: Yes Status: Acute Code(s): R78.81 - BACTEREMIA; B95.61 - METHICILLIN SUSCEP STAPH INFCT CAUSING DIS CLASSD [facility] SNOMED Code(s): 940108211 (4) Penicillin allergy Current Visit: Yes Status: Acute Code(s): Z88.0 - ALLERGY STATUS TO PENICILLIN SNOMED Code(s): 67584104 Plan: 1patient presented to hospital with weakness and fall also noticed to having worsening wound especially to the right lower extremity with cellulitis and some purulent drainage likely component of wound infection and cellulitis likely from gram-positive skin belinda 2-patient with Staph aureus bacteremia source likely lower extremity wound and cellulitis, blood culture has been repeated to document clearance 3-penicillin allergy that will limit the number of antibiotics safe to use 4-renal insufficiency and high risk of nephrotoxicity from vancomycin 5-patient to continue with cefazolin 2 g every 8 hours 6-local wound care with Aquacel silver dressing followed by Arnoldo wrap from just about the total below the knee change every 24-48 hours depending upon drainage Dictation was produced using [employer] dictation software. please excuse any grammatical, word or spelling errors. Time with Patient: Less than 30
[2023-04-20 17:08] LABS: Glucose,Whole Blood 201 mg/dL (70-110)
[2023-04-20 20:36] LABS: Glucose,Whole Blood 264 mg/dL (70-110)
--- NOTE | 2023-04-20 23:14 | PN ---
PROGRESS NOTE DATE OF SERVICE: 04/20/2023 CHIEF COMPLAINT: General debility and inability to ambulate. HISTORY OF PRESENT ILLNESS: This lady is doing fairly well. She is getting local wound care to the legs. We will refer her to Vascular Surgery. PHYSICAL EXAMINATION: GENERAL: She remains pale. CHEST: Slightly more clear than yesterday. She still has occasional wheezes and rales. CARDIAC: Reveals heart murmur. ABDOMEN: Soft, nontender. LEGS: Wrapped. IMPRESSION: 1. General debility and failure to thrive. 2. Inability to ambulate. 3. Lower extremity venous stasis disease with ulcers. 4. Cardiac murmur. 5. Congestive heart failure. PLAN: Vascular Surgery evaluation. Continue to stabilize in preparation for long-term care. MMODL / IJN: [id number] /
--- NOTE | 2023-04-20 23:35 | PN ---
PROGRESS NOTE DATE OF SERVICE: 04/19/2023 CHIEF COMPLAINT: Inability to ambulate with lower extremity cellulitis and ulcers. HISTORY OF PRESENT ILLNESS: This lady is doing fairly well, but she is short of breath. She denies chest pain. PHYSICAL EXAMINATION: VITAL SIGNS: Normal. CHEST: Demonstrates inspiratory and expiratory wheezing with scattered rales and rhonchi. CARDIAC: Reveals grade 3/6 murmur. ABDOMEN: Soft, nontender. IMPRESSION: 1. General debility and failure to thrive. 2. Inability to ambulate. 3. Congestive heart failure. 4. Cardiac murmur. PLAN: 1. Updrafts. 2. Echocardiogram. 3. Vascular Surgery consult. MMODL / IJN: [id number] /
--- NOTE | 2023-04-21 00:05 | HP ---
HISTORY AND PHYSICAL CHIEF COMPLAINT: General debility and inability to walk with chronic stasis ulcers of the lower extremities. HISTORY OF PRESENT ILLNESS: This is an another admission for this 82-year-old white female who lives alone. She is fairly poorly motivated and noncompliant. She has had problems with the lower extremities for years with stasis disease, cellulitis and ulcers. She refuses to keep her legs up and she will not come to the office. She has been seen by a house calls occasionally. Apparently, she now is unable to walk and was brought to the emergency room. REVIEW OF SYSTEMS: She denies any focal neurologic deficits, confusion, chest pain, shortness of breath, abdominal pain, incontinence, etc. Past medical history, family history and personal and social histories are all otherwise unremarkable and are unchanged. It is not clear yet what medicine she is taking. In the emergency room, her sodium was 141 with a potassium of 5.6 and her GFR was 39. PHYSICAL EXAMINATION: VITAL SIGNS: Blood pressure is 160/68 with a pulse of 84 and regular. Respirations are 32. GENERAL: She appeared to be pale and weak. HEAD, EARS, EYES, NOSE, MOUTH AND THROAT: Seemed to be normal. CHEST: Demonstrated scattered rales throughout with some wheezing on expiration. CARDIAC: Revealed a grade 3/6 systolic murmur. ABDOMEN: Soft, nontender. EXTREMITIES: Dressed from below the knees down for her cellulitis and ulcers. IMPRESSION: 1. Inability to ambulate due to general debility and weakness. 2. Hypertension. 3. Chronic kidney disease. 4. Chronic lower extremity venous stasis disease with ulcers. PLAN: 1. Bedrest. 2. Physical therapy. 3. Occupational therapy. 4. Consult with Infectious Disease, Vascular Surgery for the legs. 5. Discharge planning. MMODL / IJN: [id number] /
[2023-04-21] MEDS: LEVOTHYROXINE 100 MCG TAB PO SCH (06:26)
[2023-04-21 07:15] LABS: Glucose,Whole Blood 106 mg/dL (70-110)
[2023-04-21] MEDS: ATORVASTATIN 40 MG TAB PO SCH (09:59)
[2023-04-21] MEDS: carvediloL 3.125 MG TAB PO SCH ×2 (09:59→21:33)
[2023-04-21] MEDS: metOLazone 5 MG TAB PO SCH (09:59)
[2023-04-21] MEDS: TORSEMIDE 20 MG TAB PO SCH (09:59)
[2023-04-21] MEDS: SACUBITRIL/VALSARTAN 24 MG-26 MG TABLET PO SCH ×2 (09:59→21:32)
[2023-04-21] MEDS: FUROSEMIDE 40 MG TAB PO SCH (09:59)
[2023-04-21] MEDS: amLODIPine 5 MG TAB PO SCH (09:59)
[2023-04-21] MEDS: INSULN ASP PRT/INSULIN ASPART 100 UNIT/ML 10 ML VIAL SQ SCH ×2 (10:22→21:32)
--- NOTE | 2023-04-21 11:08 | CDI ---
Documentation Clarification Form Date: 04/21/2023 10:32:48 AM From: Zarina Banks RN, CCDS Admit Date: 04/18/2023 10:15:00 AM Patient Name: Jane Malone Visit Number: [id number] Discharge Date: ATTENTION: The Clinical Documentation Specialists (CDI) and [facility] Coding Staff appreciate your assistance in clarifying documentation. Please respond to the clarification below the line at the bottom and electronically sign. The CDI & [facility] Coding staff will review the response and follow-up if needed. Please note: Queries are made part of the Legal Health Record. If you have any questions, please contact the author of this message via ITS. Dr. Faisal Fleming Your patient has the documented diagnosis of unspecified CHF in progress note on 04/20/23]. Additional information regarding the type, acuity of CHF is requested. History/Risk Factors: Clinical Indicators: 82-year-old female who presents with progressive weakness, bilateral leg edema and wounds. She has history of CHF with ongoing treatment. VS/Pulse OX: 144/44 72 18 97.4 95% RA 04/19 BNP: 8230 06/11/2022 Echocardiogram Results: Left ventricular ejection fraction is estimated at 55-60% 04/18 Chest X Ray: Possible trace left effusion. Borderline heart size. Otherwise, no acute process seen. Treatment: Lasix 40 MG PO Daily Coreg 3.125 PO BID Lipitor 40MG PO Daily Demadex 20MG PO Daily Zaroxolyn 5MG PO Daily In your professional opinion, can you please clarify the [acuity and type] of CHF if know. [ ] Chronic Diastolic Heart Failure (preserved EF [ ] Other, please specify [ ] Unable to determine (Template Last Revised: August 2020) MTDD
--- NOTE | 2023-04-21 11:34 | CDI ---
Documentation Clarification Form Date: 04/21/2023 11:12:00 AM From: Zarina Banks RN, CCDS Admit Date: 04/18/2023 10:15:00 AM Patient Name: Jane Malone Visit Number: [id number] Discharge Date: ATTENTION: The Clinical Documentation Specialists (CDI) and [facility] Coding Staff appreciate your assistance in clarifying documentation. Please respond to the clarification below the line at the bottom and electronically sign. The CDI & [facility] Coding staff will review the response and follow-up if needed. Please note: Queries are made part of the Legal Health Record. If you have any questions, please contact the author of this message via ITS. Dr. Faisal Fleming Unspecified CKD is documented in the H/04/21/23. Additional clarification regarding the stage of CKD is requested. History/Risk Factors: Heart Failure, COPD, Diabetes Mellitus, Hyperlipidemia, Hypertension, Osteoarthritis, Thyroid Disorder, bilateral lower leg venostasis dermatitis, cellulitis ulcers edema Patients Historical: 06/18/22 BUN 40 CR 1.4 GFR 35.1 Clinical Indicators: 82-year-old female per progress note has chronic kidney disease. Additional clarification is requested. 04/18 BUN 31 CR 1.29 GFR 39 04/19 Cr 1.11 GFR 47 04/20 BUN 26 CR 1.15 GFR 45 Treatment: .9NS 500 ML Bolus 04/18 Monitor BUN/CR Per orders Please clarify the stage of the CKD, if known: [ ] Acute on CKD Stage 3 [ ] CKD Stage 3 (GFR 30-59) [ ] CKD Stage 3a (GFR 45-59) [ ] CKD Stage 3b (GFR 30-44 [ ] Other, please specify [ ] Unable to determine (Template Last revised: August 2020) MTDD
[2023-04-21 12:19] LABS: Glucose,Whole Blood 262 mg/dL (70-110)
[2023-04-21 17:05] LABS: Glucose,Whole Blood 159 mg/dL (70-110)
--- NOTE | 2023-04-21 17:31 | P.GSCN ---
History of Present Illness History of present illness: 82-year-old white female, patient came to the emergency room with history of fall at home according to patient she is been feeling some week no history of neuro deficit. Patient also has history of 4 congestive heart failure, history of diabetes hypertension and COPD Sherlyhen has history of 4 venous stasis ulcer involving both lower extremity more on the right lower ex within the left acco patient has visiting nurse who is been taking care of those lower extremity venous stasis ulcers. Right lower extremity femorals are 1+ PTDP the not palpable patient has a ulcer on the right lower extremity base of the wound is clean and and no debridement last tissue was noted and left lower extremity has small ulcers on the anterior put posterior aspect of the lower leg. Chest Few crackles the lung bases first and second sound is present Abdomen is protuberant and soft nontender Right and left femorals are 1+ bilateral We have changed the dressing of the right and left lower extremity there was some seepage noted no followed and noted we use Aquacel silver no further debridement needed change her dressing every 48 hours using X a silver with you Past Medical History Past Medical History: Heart Failure, COPD, Diabetes Mellitus, GERD/Reflux, Hyperlipidemia, Hypertension, Osteoarthritis (OA), Pneumonia, Skin Disorder, Thyroid Disorder Additional Past Medical History / Comment(s): IDDM type II, neuropathy L hand, bilateral lower leg venostasis/dermatitis/cellulitis/ulcers/edema, FALLS, weakness, arthritis bilateral knees, vertigo, hypothyroid History of Any Multi-Drug Resistant Organisms: None Reported Past Surgical History: Breast Surgery, Cholecystectomy, Tonsillectomy Additional Past Surgical History / Comment(s): Benign mass removed from neck, R breast benign biopsy, R eye laser surgery/pt cannot recall reason. Past Anesthesia/Blood Transfusion Reactions: No Reported Reaction Past Psychological History: No Psychological Hx Reported Additional Psychological History / Comment(s): [Pt recently was at [facility] for rehab and was discharged from there on 07/05/21. She is to establish with [facility]idential home care. Her [facility] and [facility] live nearby and assist pt with getting groceries, housework. Pt states she can no longer get out of her 2 story home d/t stairs at both doors. She lives on the first floor. She gets meals on wheels. She ambulates with a walker. She manages her own medications and sponge bathes and dresses herself.] Smoking Status: Former smoker Past Alcohol Use History: None Reported Additional Past Alcohol Use History / Comment(s): Pt started smoking in 1959 and quit in 1999 Past Drug Use History: None Reported - Past Family History Father Family Medical History: Hypertension, Myocardial Infarction ([place]) Additional Family Medical History / Comment(s): X3 [place], Mother Family Medical History: Cancer Additional Family Medical History / Comment(s): DIES FROM [place]ON [place] Medications and Allergies Home Medications Medication Instructions Recorded Confirmed Type Levothyroxine Sodium 100 mcg PO DAILY 10/02/19 04/18/23 History amLODIPine [Norvasc] 5 mg PO DAILY 06/07/22 04/18/23 History Torsemide [Demadex] 20 mg PO DAILY tab 06/18/22 04/18/23 Rx Atorvastatin Calcium [Lipitor] 40 mg PO DAILY 04/18/23 04/18/23 History Furosemide [Lasix] 40 mg PO DAILY 04/18/23 04/18/23 History Insulin Aspart Prot/Insuln Asp 10 unit SQ HS 04/18/23 04/18/23 History [Novolog MIX 70-30 Flexpen] Insulin NPH Hum/Reg Insulin Hm 28 units SQ DAILY 04/18/23 04/18/23 History [Novolin 70-30 Flexpen] Sacubitril/Valsartan [Entresto 24 1 tab PO BID 04/18/23 04/18/23 History mg-26 mg Tablet] carvediloL [Coreg] 3.125 mg PO BID 04/18/23 04/18/23 History metOLazone [Zaroxolyn] 5 mg PO DAILY 04/18/23 04/18/23 History Allergies Allergy/AdvReac Type Severity Reaction Status Date / Time Penicillins Allergy Rash/Hives Verified 04/18/23 11:30 Surgical - Exam Vital Signs Temp Pulse Resp BP Pulse Ox 97.4 F L 72 18 144/44 95 04/18/23 08:17 04/18/23 08:17 04/18/23 08:17 04/18/23 08:17 04/18/23 08:17 Results - Labs 04/20/23 07:54 04/20/23 07:54 Abnormal Lab Results - Last 24 Hours (Table) 04/20/23 04/21/23 04/21/23 Range/Units 20:34 12:16 17:04 POC Glucose (mg/dL) 264 H 262 H 159 H (70-110) mg/dL Microbiology - Last 24 Hours (Table) 04/20/23 07:54 Blood Culture - Preliminary Blood 04/18/23 08:33 Blood Culture Gram Stain - Preliminary Blood Blood Culture - Preliminary Presumptive Staph aureus
--- NOTE | 2023-04-21 17:54 | CA ---
Transthoracic Echo Report Name: Jane Malone Age: 82 Gender: F : 1940 Exam Date: 04/21/2023 12:26 Exam Location: [facility] Ht (in): 63 Wt (lb): 230 Ordering Physician: Faisal Fleming MD Attending/Referring Phys: Lonnie MURPHY [employer] Machine Zee Hernandez RDCS Procedure CPT: Indications: chf Cardiac Hx: Technical Quality: Good Contrast 1: Total Dose (mL): Contrast 2: Total Dose (mL): MEASUREMENTS (Male / Female) Normal Values 2D ECHO LV Diastolic Diameter PLAX 4.6 cm 4.2 - 5.9 / 3.9 - 5.3 cm LV Systolic Diameter PLAX 2.8 cm IVS Diastolic Thickness 1.1 cm 0.6 - 1.0 / 0.6 - 0.9 cm LVPW Diastolic Thickness 1.2 cm 0.6 - 1.0 / 0.6 - 0.9 cm LV Relative Wall Thickness 0.5 RV Internal Dim ED PLAX 2.8 cm LA Systolic Diameter LX 3.1 cm 3.0 - 4.0 / 2.7 - 3.8 cm LV Diastolic Volume MOD 4C 108.3 cm??? LV Systolic Volume MOD 4C 41.7 cm??? LV Ejection Fraction MOD 4C 61.5 % LV Cardiac Index MOD 4C 1839.3 cm???/min???m??? LV Diastolic Length 4C 8.3 cm LV Systolic Length 4C 6.9 cm LV Diastolic Volume MOD 2C 92.3 cm??? LV Systolic Volume MOD 2C 41.8 cm??? LV Ejection Fraction MOD 2C 54.7 % LV Cardiac Index MOD 2C 1395.4 cm???/min???m??? LV Diastolic Length 2C 8.5 cm LV Systolic Length 2C 7.1 cm LA Volume 56.8 cm??? 18 - 58 / 22 - 52 cm??? LA Volume Index 25.7 cm???/m??? 16 - 28 cm???/m??? M-MODE Aortic Root Diameter MM 2.8 cm MV E Point Septal Separation 0.7 cm AV Cusp Separation MM 1.9 cm DOPPLER AV Peak Velocity 175.0 cm/s AV Peak Gradient 12.2 mmHg MV Area PHT 1.7 cm??? Mitral E Point Velocity 125.2 cm/s Mitral A Point Velocity 114.9 cm/s Mitral E to A Ratio 1.1 MV Deceleration Time 451.8 ms MV E' Velocity 5.7 cm/s Mitral E to MV E' Ratio 21.9 TR Peak Velocity 311.3 cm/s TR Peak Gradient 38.8 mmHg Right Ventricular Systolic Press 43.8 mmHg FINDINGS Left Ventricle Left ventricular ejection fraction is estimated at 55-60 %. Left ventricular cavity size normal. Mildly increased septal wall thickness. Mildly increased posterior wall thickness. Left ventricular cavity size normal. Right Ventricle Normal right ventricular size. Mild pulmonary hypertension. Right Atrium Normal right atrial size. Left Atrium Mildly increased left atrial volume. Mildly increased left atrial area. Mitral Valve Mitral valve thickened. Mitral annular calcification. Trace to mild mitral regurgitation. Aortic Valve Trileaflet aortic valve. No aortic valve stenosis or regurgitation. Tricuspid Valve Structurally normal tricuspid valve. Mild tricuspid regurgitation. Pulmonic Valve Pulmonic valve not well visualized. Pericardium No pericardial effusion. Aorta Normal size aortic root and proximal ascending aorta. CONCLUSIONS LVH with preserved systolic function Previewed by: Dr. Bobby Castro MD (Electronically Signed) Final Date: 21 April 2023 17:53
[2023-04-21 20:21] LABS: Glucose,Whole Blood 275 mg/dL (70-110)
--- NOTE | 2023-04-21 22:59 | PN ---
PROGRESS NOTE CHIEF COMPLAINT: Inability to walk with congestive heart failure and stasis disease of lower extremities with ulcers. PHYSICAL EXAMINATION: GENERAL: She remains pale. CHEST: Clear. CARDIAC: Unchanged. ABDOMEN: Soft and nontender. PLAN: Dressings will be managed by Wound Care, and she will also be seen by Vascular Surgery. MMODL / IJN: [id number] /
[2023-04-21] MEDS: ACETAMINOPHEN TAB 325 MG TAB PO PRN (23:22)
[2023-04-22] MEDS: LEVOTHYROXINE 100 MCG TAB PO SCH (05:54)
[2023-04-22 07:12] LABS: Glucose,Whole Blood 100 mg/dL (70-110)
[2023-04-22] MEDS: FUROSEMIDE 40 MG TAB PO SCH (09:31)
[2023-04-22] MEDS: ATORVASTATIN 40 MG TAB PO SCH (09:31)
[2023-04-22] MEDS: carvediloL 3.125 MG TAB PO SCH ×2 (09:32→21:23)
[2023-04-22] MEDS: SACUBITRIL/VALSARTAN 24 MG-26 MG TABLET PO SCH ×2 (09:32→21:22)
[2023-04-22] MEDS: amLODIPine 5 MG TAB PO SCH (09:32)
[2023-04-22] MEDS: metOLazone 5 MG TAB PO SCH (09:32)
[2023-04-22] MEDS: TORSEMIDE 20 MG TAB PO SCH (09:33)
[2023-04-22] MEDS: INSULN ASP PRT/INSULIN ASPART 100 UNIT/ML 10 ML VIAL SQ SCH (09:37)
[2023-04-22 12:28] LABS: Glucose,Whole Blood 61 mg/dL (70-110)
[2023-04-22 13:09] LABS: Glucose,Whole Blood 109 mg/dL (70-110)
--- NOTE | 2023-04-22 13:30 | P.PN ---
Subjective Progress Note Date: 04/21/23 Principal diagnosis: Bilateral lower extremity wound cellulitis and bacteremia Patient is a 82-year-old female with a past medical history significant for Heart Failure, COPD, Diabetes Mellitus, GERD/Reflux, Hyperlipidemia, Hypertension, Osteoarthritis (OA), Pneumonia, Skin Disorder, Thyroid Disorder, bilateral lower extremity venous stasis ulcer and history of cellulitis patient presenting to the ER for evaluation of weakness and fall nonhealing wound to lower extremity cellulitis and the patient also has bacteremia. on today's evaluation that is 04/21/2023, the patient denies any fever or any chills, the patient is breathing comfortably on room air and no need for supplemental oxygen, patient denies abdominal pain and no nausea/vomiting /diarrhea,the patient denies chest pain or cough, the patient pain to the lower extremity has decreased in intensity. No new symptoms Patient white count was 6.3, creatinine is 1.15 as of 04/20/2023 no lab draws today Objective - Vital Signs Vital signs: Vital Signs Temp 98.3 F 04/21/23 07:10 Pulse 68 04/21/23 07:57 Resp 18 04/21/23 07:10 BP 166/58 04/21/23 07:10 Pulse Ox 99 04/21/23 07:57 FiO2 Intake & Output 04/20/23 04/21/23 04/21/23 18:59 06:59 18:59 Output Total 2600 1150 Balance -2600 -1150 Weight 75.5 kg Output: Urine 2600 1150 Other: Voiding Method External Catheter External Catheter External Catheter - Exam GENERAL DESCRIPTION: An elderly female lying in bed in no distress RESPIRATORY SYSTEM: Unlabored breathing , decreased breath sounds at bases HEART: S1 S2 regular rate and rhythm , ABDOMEN: Soft , no tenderness EXTREMITIES: Lower extremity wound is currently dressed with minimal drainage on the dressing - Labs CBC & Chem 7: 04/20/23 07:54 04/20/23 07:54 Labs: Abnormal Lab Results - Last 24 Hours (Table) 04/20/23 04/20/23 04/21/23 Range/Units 17:02 20:34 12:16 POC Glucose (mg/dL) 201 H 264 H 262 H (70-110) mg/dL Microbiology - Last 24 Hours (Table) 04/18/23 08:33 Blood Culture Gram Stain - Preliminary Blood Blood Culture - Preliminary Presumptive Staph aureus Assessment and Plan (1) Leg wound, right Current Visit: Yes Status: Acute Code(s): S81.801A - UNSPECIFIED OPEN WOUND, RIGHT LOWER LEG, INITIAL ENCOUNTER SNOMED Code(s): 288914505 (2) Bilateral lower leg cellulitis Current Visit: Yes Status: Acute Code(s): L03.116 - CELLULITIS OF LEFT LOWER LIMB; L03.115 - CELLULITIS OF RIGHT LOWER LIMB SNOMED Code(s): 224346303 (3) MSSA bacteremia Current Visit: Yes Status: Acute Code(s): R78.81 - BACTEREMIA; B95.61 - METHICILLIN SUSCEP STAPH INFCT CAUSING DIS CLASSD ELSR SNOMED Code(s): 511588200 (4) Penicillin allergy Current Visit: Yes Status: Acute Code(s): Z88.0 - ALLERGY STATUS TO PENICILLIN SNOMED Code(s): 27093442 Plan: 1patient presented to hospital with weakness and fall also noticed to having worsening wound especially to the right lower extremity with cellulitis and some purulent drainage likely component of wound infection and cellulitis likely from gram-positive skin belinda 2-patient with Staph aureus bacteremia source likely lower extremity wound and cellulitis, blood culture has been repeated 04/20/2023 and so far negative 3-patient to continue with cefazolin 2 g every 8 hours 4-local wound care with Aquacel silver dressing followed by Arnoldo wrap from just about the total below the knee change every 24-48 hours depending upon drainage Dictation was produced using [employer] dictation software. please excuse any grammatical, word or spelling errors. Time with Patient: Less than 30
--- NOTE | 2023-04-22 13:31 | P.PN ---
Subjective Progress Note Date: 04/22/23 Principal diagnosis: Bilateral lower extremity wound cellulitis and bacteremia Patient is a 82-year-old female with a past medical history significant for Heart Failure, COPD, Diabetes Mellitus, GERD/Reflux, Hyperlipidemia, Hypertension, Osteoarthritis (OA), Pneumonia, Skin Disorder, Thyroid Disorder, bilateral lower extremity venous stasis ulcer and history of cellulitis patient presenting to the ER for evaluation of weakness and fall nonhealing wound to lower extremity cellulitis and the patient also has bacteremia. on today's evaluation that is 04/22/2023, the patient remains to be afebrile the patient is breathing comfortably on room air, the patient denies having any chest pain shortness of breath or cough, patient denies abdominal pain and no nausea/vomiting /diarrhea, the patient pain to the lower extremity has decreased in intensity. Patient is feeling better Patient white count was 6.3, creatinine is 1.15 as of 04/20/2023 no lab draws today Objective - Vital Signs Vital signs: Vital Signs Temp 97.6 F 04/22/23 12:15 Pulse 53 L 04/22/23 12:15 Resp 16 04/22/23 12:15 BP 121/68 04/22/23 12:15 Pulse Ox 99 04/22/23 12:15 FiO2 Intake & Output 04/21/23 04/22/23 04/22/23 18:59 06:59 18:59 Intake Total 118 Output Total 800 950 Balance -800 -832 Weight 85 kg 85 kg Intake: Oral 118 Output: Urine 800 950 Other: Voiding Method External Catheter External Catheter External Catheter - Exam GENERAL DESCRIPTION: An elderly female lying in bed in no distress RESPIRATORY SYSTEM: Unlabored breathing , decreased breath sounds at bases HEART: S1 S2 regular rate and rhythm , ABDOMEN: Soft , no tenderness EXTREMITIES: Lower extremity wound is currently dressed with minimal drainage on the dressing - Labs CBC & Chem 7: 04/20/23 07:54 04/20/23 07:54 Labs: Abnormal Lab Results - Last 24 Hours (Table) 04/21/23 04/21/23 04/22/23 Range/Units 17:04 20:18 12:27 POC Glucose (mg/dL) 159 H 275 H 61 L (70-110) mg/dL Microbiology - Last 24 Hours (Table) 04/18/23 08:33 Blood Culture Gram Stain - Final Blood Blood Culture - Final Staphylococcus aureus 04/19/23 13:30 Urine Culture - Final Urine,Voided Enterococcus faecalis 04/20/23 07:54 Blood Culture - Preliminary Blood Assessment and Plan (1) Leg wound, right Current Visit: Yes Status: Acute Code(s): S81.801A - UNSPECIFIED OPEN WOUND, RIGHT LOWER LEG, INITIAL ENCOUNTER SNOMED Code(s): 141149457 (2) Bilateral lower leg cellulitis Current Visit: Yes Status: Acute Code(s): L03.116 - CELLULITIS OF LEFT LOWER LIMB; L03.115 - CELLULITIS OF RIGHT LOWER LIMB SNOMED Code(s): 860759754 (3) MSSA bacteremia Current Visit: Yes Status: Acute Code(s): R78.81 - BACTEREMIA; B95.61 - METHICILLIN SUSCEP STAPH INFCT CAUSING DIS CLASSD ELSWHR SNOMED Code(s): 099699321 (4) Penicillin allergy Current Visit: Yes Status: Acute Code(s): Z88.0 - ALLERGY STATUS TO PENICILLIN SNOMED Code(s): 06995259 Plan: 1patient presented to hospital with weakness and fall also noticed to having worsening wound especially to the right lower extremity with cellulitis and some purulent drainage likely component of wound infection and cellulitis likely from gram-positive skin belinda 2-patient with Staph aureus bacteremia source likely lower extremity wound and cellulitis, blood culture has been repeated 04/20/2023 and so far negative 3-local wound care with Aquacel silver dressing followed by Arnoldo wrap from just about the total below the knee change every 24-48 hours depending upon drainage 4-patient to continue with cefazolin 2 g every 8 hours, Will need to IV antibiotics upon discharge Dictation was produced using [employer] dictation software. please excuse any grammatical, word or spelling errors. Time with Patient: Less than 30
--- NOTE | 2023-04-22 16:33 | CDI ---
Documentation Clarification Form Date: 04/22/2023 04:30:51 PM From: Zarina Banks RN, CCDS Admit Date: 04/18/2023 10:15:00 AM Patient Name: Jane Malone Visit Number: [id number] Discharge Date: ATTENTION: The Clinical Documentation Specialists (CDI) and [facility] Coding Staff appreciate your assistance in clarifying documentation. Please respond to the clarification below the line at the bottom and electronically sign. The CDI & [facility] Coding staff will review the response and follow-up if needed. Please note: Queries are made part of the Legal Health Record. If you have any questions, please contact the author of this message via ITS. Dr. Bryce Cote Cellulitis is documented in the ID consult and subsequent progress notes and patient has a history of Diabetes Mellitus. Additional clarification regarding the type of cellulitis is requested. History/risk factors: Heart Failure, COPD, Diabetes Mellitus, GERD/Reflux, Hyperlipidemia, Hypertension, Osteoarthritis, Thyroid Disorder, bilateral lower extremity venous stasis ulcer and history of cellulitis Clinical Indicators: 82-year-old female present with progressive weakness. He has bilateral lower extremity wounds and has not been able to follow-up in the wound care center. Right leg with evidence of slough tissue surrounding swelling redness patient did have mild dull aching pain to the lower extremity wounds especially the right leg did have some purulent drainage and minimal foul- smelling 04/18 VS: 144/44 72 18 97.4 95% RA 04/18 Labs: WBC 6.3 HGB 10.4 HCT 33.9 K+ 5.6 Cl 115, C02 15, BUN 31 CR 1.29 04/18 Blood cultures: Staphylococcus aureus Treatment: Kefzol 2GM IVPB Q 12 HRS 04/19-04/22 Local wound care with Aquacel silver dressing followed by Arnoldo wrap change every 24-48 hours depending upon drainage Novolog 6 Units SQ AC-TID Levemir 30 Unit SQ Daily @0700 Monitor blood sugars per protocol ACHS Please clarify the etiology of the cellulitis, if known: [ ] Cellulitis is a diabetic skin complication [ x ] Cellulitis is not a diabetic skin complication [ ] Other, please specify: [ ] Unable to determine (Template Last Revised: July 2022) MTDD
[2023-04-22 17:09] LABS: Glucose,Whole Blood 193 mg/dL (70-110)
[2023-04-22] MEDS: INSULIN ASPART (NovoLOG) 100 UNIT/ML VIAL SQ SCH ×2 (17:47)
--- NOTE | 2023-04-22 19:58 | XR ---
EXAMINATION TYPE: XR chest 2V DATE OF EXAM: 04/22/2023 COMPARISON: 04/18/2023 INDICATION: CHF TECHNIQUE: Frontal and lateral views of the chest are obtained. FINDINGS: The heart size is normal. The pulmonary vasculature is prominent. Small bilateral pleural effusions are present.. IMPRESSION: 1. Developing small bilateral pleural effusions.
[2023-04-22] MEDS: ACETAMINOPHEN TAB 325 MG TAB PO PRN (21:23)
[2023-04-22 21:43] LABS: Glucose,Whole Blood 52 mg/dL (70-110)
[2023-04-22 21:58] LABS: Glucose,Whole Blood 70 mg/dL (70-110)
[2023-04-23] MEDS: INSULIN ASPART (NovoLOG) 100 UNIT/ML VIAL SQ SCH ×8 (00:46→20:54)
[2023-04-23 01:34] LABS: Glucose,Whole Blood 108 mg/dL (70-110)
[2023-04-23] MEDS: LEVOTHYROXINE 100 MCG TAB PO SCH (05:35)
[2023-04-23 07:41] LABS: Glucose,Whole Blood 90 mg/dL (70-110)
[2023-04-23] MEDS: ATORVASTATIN 40 MG TAB PO SCH (08:48)
[2023-04-23] MEDS: amLODIPine 5 MG TAB PO SCH (08:48)
[2023-04-23] MEDS: FUROSEMIDE 40 MG TAB PO SCH (08:48)
[2023-04-23] MEDS: INSULIN DETEMIR (LEVEMIR) 100 UNIT/ML SYR SQ SCH (08:48)
[2023-04-23] MEDS: carvediloL 3.125 MG TAB PO SCH ×2 (08:48→20:49)
[2023-04-23] MEDS: SACUBITRIL/VALSARTAN 24 MG-26 MG TABLET PO SCH ×2 (08:49→20:48)
[2023-04-23] MEDS: ACETAMINOPHEN TAB 325 MG TAB PO PRN ×2 (09:05→20:53)
[2023-04-23 11:12] LABS: Glucose,Whole Blood 104 mg/dL (70-110)
--- NOTE | 2023-04-23 12:33 | P.PN ---
Subjective Progress Note Date: 04/23/23 Principal diagnosis: Bilateral lower extremity wound cellulitis and bacteremia Patient is a 82-year-old female with a past medical history significant for Heart Failure, COPD, Diabetes Mellitus, GERD/Reflux, Hyperlipidemia, Hypertension, Osteoarthritis (OA), Pneumonia, Skin Disorder, Thyroid Disorder, bilateral lower extremity venous stasis ulcer and history of cellulitis patient presenting to the ER for evaluation of weakness and fall nonhealing wound to lower extremity cellulitis and the patient also has bacteremia. on today's evaluation that is 04/23/2023, the patient denies any fever or any chills, the patient is breathing comfortably on room air and no need for supplemental oxygen, the patient denies chest pain or cough, patient denies nausea/vomiting and no diarrhea has been reported the patient pain to the lower extremity has decreased in intensity. Denies any urinary symptoms Patient white count was 6.3, creatinine is 1.15 as of 04/20/2023 no lab draws today, blood culture revealed on 04/20/2023 negative urine culture showing enterococcus faecalis Objective - Vital Signs Vital signs: Vital Signs Temp 98.0 F 04/23/23 08:00 Pulse 69 04/23/23 08:00 Resp 18 04/23/23 08:00 BP 149/55 04/23/23 08:00 Pulse Ox 93 L 04/23/23 09:10 FiO2 Intake & Output 04/22/23 04/23/23 04/23/23 18:59 06:59 18:59 Output Total 600 1200 800 Balance -600 -1200 -800 Weight 85 kg 99.5 kg Output: Urine 600 1200 800 Other: Voiding Method External Catheter External Catheter External Catheter # Bowel Movements 1 1 - Exam GENERAL DESCRIPTION: An elderly female lying in bed in no distress RESPIRATORY SYSTEM: Unlabored breathing , decreased breath sounds at bases HEART: S1 S2 regular rate and rhythm , ABDOMEN: Soft , no tenderness EXTREMITIES: Lower extremity wound is currently dressed with minimal drainage on the dressing - Labs CBC & Chem 7: 04/20/23 07:54 04/20/23 07:54 Labs: Abnormal Lab Results - Last 24 Hours (Table) 04/22/23 04/22/23 04/22/23 Range/Units 12:27 13:57 17:08 POC Glucose (mg/dL) 61 L 193 H (70-110) mg/dL Hemoglobin A1c 6.7 H (<=6.0) % 04/22/23 Range/Units 21:42 POC Glucose (mg/dL) 52 L (70-110) mg/dL Hemoglobin A1c (<=6.0) % Microbiology - Last 24 Hours (Table) 04/20/23 07:54 Blood Culture - Preliminary Blood 04/18/23 08:33 Blood Culture Gram Stain - Final Blood Blood Culture - Final Staphylococcus aureus Assessment and Plan (1) Leg wound, right Current Visit: Yes Status: Acute Code(s): S81.801A - UNSPECIFIED OPEN WOUND, RIGHT LOWER LEG, INITIAL ENCOUNTER SNOMED Code(s): 291245695 (2) Bilateral lower leg cellulitis Current Visit: Yes Status: Acute Code(s): L03.116 - CELLULITIS OF LEFT LOWER LIMB; L03.115 - CELLULITIS OF RIGHT LOWER LIMB SNOMED Code(s): 274648304 (3) MSSA bacteremia Current Visit: Yes Status: Acute Code(s): R78.81 - BACTEREMIA; B95.61 - METHICILLIN SUSCEP STAPH INFCT CAUSING DIS CLASSD ELSWHR SNOMED Code(s): 712689516 (4) Penicillin allergy Current Visit: Yes Status: Acute Code(s): Z88.0 - ALLERGY STATUS TO PENICILLIN SNOMED Code(s): 75107733 Plan: 1patient presented to hospital with weakness and fall also noticed to having worsening wound especially to the right lower extremity with cellulitis and some purulent drainage likely component of wound infection and cellulitis likely from gram-positive skin belinda 2-patient with Staph aureus bacteremia source likely lower extremity wound and cellulitis, blood culture has been repeated 04/20/2023 and so far negative 3-local wound care with Aquacel silver dressing followed by Arnoldo wrap from just about the total below the knee change every 24-48 hours depending upon drainage 4-patient seemed to have cleared her bacteremia we will order a midline and plan is for two-week course of cefazolin 2 g every 8 hours 5-positive urine culture Enterococcus faecalis patient didn't have any urinary symptoms more likely asymptomatic bacteriuria Dictation was produced using [employer] software. please excuse any grammatical, word or spelling errors. Time with Patient: Less than 30
[2023-04-23 17:45] LABS: Glucose,Whole Blood 66 mg/dL (70-110)
[2023-04-23 18:14] LABS: Glucose,Whole Blood 71 mg/dL (70-110)
[2023-04-23 20:15] LABS: Glucose,Whole Blood 174 mg/dL (70-110)
[2023-04-24] MEDS: ACETAMINOPHEN TAB 325 MG TAB PO PRN ×2 (05:44→19:49)
[2023-04-24] MEDS: LEVOTHYROXINE 100 MCG TAB PO SCH (05:44)
[2023-04-24 07:21] LABS: Glucose,Whole Blood 84 mg/dL (70-110)
[2023-04-24] MEDS: INSULIN ASPART (NovoLOG) 100 UNIT/ML VIAL SQ SCH ×7 (07:53→21:12)
[2023-04-24] MEDS: INSULIN DETEMIR (LEVEMIR) 100 UNIT/ML SYR SQ SCH (08:25)
[2023-04-24] MEDS: carvediloL 3.125 MG TAB PO SCH ×2 (08:26→19:50)
[2023-04-24] MEDS: FUROSEMIDE 40 MG TAB PO SCH (08:26)
[2023-04-24] MEDS: amLODIPine 5 MG TAB PO SCH (08:26)
[2023-04-24] MEDS: ATORVASTATIN 40 MG TAB PO SCH (08:26)
[2023-04-24] MEDS: SACUBITRIL/VALSARTAN 24 MG-26 MG TABLET PO SCH ×2 (08:26→19:50)
[2023-04-24 12:39] LABS: Glucose,Whole Blood 111 mg/dL (70-110)
--- NOTE | 2023-04-24 16:43 | P.PN ---
Subjective Progress Note Date: 04/24/23 Principal diagnosis: Bilateral lower extremity wound cellulitis and bacteremia Patient is a 82-year-old female with a past medical history significant for Heart Failure, COPD, Diabetes Mellitus, GERD/Reflux, Hyperlipidemia, Hypertension, Osteoarthritis (OA), Pneumonia, Skin Disorder, Thyroid Disorder, bilateral lower extremity venous stasis ulcer and history of cellulitis patient presenting to the ER for evaluation of weakness and fall nonhealing wound to lower extremity cellulitis and the patient also has bacteremia. on today's evaluation that is 04/24/2023, the patient remains to be afebrile the patient is breathing comfortably on room air, the patient denies chest pain and no significant cough or sputum production, patient denies nausea/vomiting and no diarrhea, the patient pain to the lower extremity has decreased in intensity. No new symptoms Patient white count was 6.3, creatinine is 1.15 as of 04/20/2023 no lab draws today, blood culture revealed on 04/20/2023 negative urine culture showing enterococcus faecalis Objective - Vital Signs Vital signs: Vital Signs Temp 97.5 F L 04/24/23 08:00 Pulse 67 04/24/23 08:00 Resp 16 04/24/23 08:00 BP 163/68 04/24/23 08:00 Pulse Ox 96 04/24/23 08:00 FiO2 Intake & Output 04/23/23 04/24/23 04/24/23 18:59 06:59 18:59 Intake Total 100 590 Output Total 5408 604 4773 Balance -1450 -360 -1600 Weight 83.5 kg Intake: Intake, IV Titration 100 Amount ceFAZolin 2 gm In Sodium 100 Chloride 0.9% 50 ml @ 100 mls/hr IVPB Q12HR [facility] Rx #:[id number] Oral 0 590 Output: Urine 2307 134 6751 Other: Voiding Method External Catheter External Catheter External Catheter # Voids 0 # Bowel Movements 1 0 - Exam GENERAL DESCRIPTION: An elderly female lying in bed in no distress RESPIRATORY SYSTEM: Unlabored breathing , decreased breath sounds at bases HEART: S1 S2 regular rate and rhythm , ABDOMEN: Soft , no tenderness EXTREMITIES: Lower extremity wound is currently dressed with minimal drainage on the dressing - Labs CBC & Chem 7: 04/20/23 07:54 04/20/23 07:54 Labs: Abnormal Lab Results - Last 24 Hours (Table) 04/23/23 04/23/23 04/24/23 Range/Units 17:43 20:14 12:21 POC Glucose (mg/dL) 66 L 174 H 111 H (70-110) mg/dL Microbiology - Last 24 Hours (Table) 04/20/23 07:54 Blood Culture - Preliminary Blood Assessment and Plan (1) Leg wound, right Current Visit: Yes Status: Acute Code(s): S81.801A - UNSPECIFIED OPEN WOUND, RIGHT LOWER LEG, INITIAL ENCOUNTER SNOMED Code(s): 686208186 (2) Bilateral lower leg cellulitis Current Visit: Yes Status: Acute Code(s): L03.116 - CELLULITIS OF LEFT LOWER LIMB; L03.115 - CELLULITIS OF RIGHT LOWER LIMB SNOMED Code(s): 881678200 (3) MSSA bacteremia Current Visit: Yes Status: Acute Code(s): R78.81 - BACTEREMIA; B95.61 - METHICILLIN SUSCEP STAPH INFCT CAUSING DIS CLASSD ELSWHR SNOMED Code(s): 370755038 (4) Penicillin allergy Current Visit: Yes Status: Acute Code(s): Z88.0 - ALLERGY STATUS TO PENICILLIN SNOMED Code(s): 35477588 Plan: 1patient presented to hospital with weakness and fall also noticed to having worsening wound especially to the right lower extremity with cellulitis and some purulent drainage likely component of wound infection and cellulitis likely from gram-positive skin belinda 2-patient with Staph aureus bacteremia source likely lower extremity wound and cellulitis, blood culture has been repeated 04/20/2023 and so far negative 3-local wound care with Aquacel silver dressing followed by Arnoldo wrap from just about the total below the knee change every 24-48 hours depending upon drainage 4-patient seemed to have cleared her bacteremia , plan is for two-week course of cefazolin 2 g every 8 hours from a negative blood culture 5-positive urine culture Enterococcus faecalis patient didn't have any urinary symptoms more likely asymptomatic bacteriuria and no need for antibiotics for a positive urine culture Dictation was produced using [employer] dictation software. please excuse any grammatical, word or spelling errors. Time with Patient: Less than 30
[2023-04-24 17:36] LABS: Glucose,Whole Blood 125 mg/dL (70-110)
[2023-04-24 20:11] LABS: Glucose,Whole Blood 83 mg/dL (70-110)
[2023-04-24 20:45] VITALS: RESP 16
--- NOTE | 2023-04-25 03:04 | PN ---
PROGRESS NOTE DATE OF SERVICE: 04/24/2023 CHIEF COMPLAINT: Debility with frequent falls and lower extremity stasis disease and ulcers. HISTORY OF PRESENT ILLNESS: This lady is doing fairly well, we are waiting for placement. PHYSICAL EXAMINATION: GENERAL: She is awake and alert. VITAL SIGNS: Normal. CHEST: Clear. CARDIAC: Normal. ABDOMEN: Soft and nontender. EXTREMITIES: Legs are dressed and being cared for. IMPRESSION: 1. General debility and weakness. 2. Inability to ambulate. 3. Frequent falls. 4. Congestive heart failure. 5. Lower extremity stasis disease and cellulitis with ulcers. PLAN: Continue with local wound care while waiting for [facility] placement. MMODL / IJN: [id number] /
--- NOTE | 2023-04-25 03:28 | PN ---
PROGRESS NOTE DATE OF SERVICE: 04/23/2023 CHIEF COMPLAINT: Inability to ambulate with frequent falls, heart failure, and lower extremity stasis disease with ulcers. HISTORY OF PRESENT ILLNESS: This lady is stable and there has been no change. She is receiving care to lower extremities. She was short of breath several days ago, but she seems to be improving. PHYSICAL EXAMINATION: CHEST: Breath sounds are heard bilaterally. CARDIAC: Normal. ABDOMEN: Soft and nontender. IMPRESSION: 1. Inability to ambulate. 2. General debility. 3. CHF. 4. Stasis disease of lower extremities with chronic ulcers. PLAN: Continue with her local wound care to the legs in the hospital and await for group home placement. MMODL / IJN: [id number] /
--- NOTE | 2023-04-25 03:40 | PN ---
PROGRESS NOTE DATE OF SERVICE: 04/22/2023 CHIEF COMPLAINT: Frequent falling, general debility and failure to thrive. HISTORY OF PRESENT ILLNESS: This lady is feeling quite short of breath. She denies chest pain, fever, or chills, etc. PHYSICAL EXAMINATION: CHEST: Breath sounds are diminished throughout. CARDIAC: Normal. ABDOMEN: Soft and nontender. EXTREMITIES: IMPRESSION: 1. Inability to ambulate. 2. General debility and weakness. 3. Shortness of breath. 4. Congestive heart failure. 5. Stasis disease to lower extremities. PLAN: Looking at further evaluation of her shortness of breath. GFR is 45. BMP will be ordered. MMODL / IJN: [id number] /
[2023-04-25] MEDS: LEVOTHYROXINE 100 MCG TAB PO SCH (06:19)
[2023-04-25 08:04] LABS: Glucose,Whole Blood 85 mg/dL (70-110)
[2023-04-25] MEDS: INSULIN ASPART (NovoLOG) 100 UNIT/ML VIAL SQ SCH ×6 (08:18→17:52)
[2023-04-25] MEDS: amLODIPine 5 MG TAB PO SCH (09:18)
[2023-04-25] MEDS: SACUBITRIL/VALSARTAN 24 MG-26 MG TABLET PO SCH (09:18)
[2023-04-25] MEDS: FUROSEMIDE 40 MG TAB PO SCH (09:18)
[2023-04-25] MEDS: carvediloL 3.125 MG TAB PO SCH (09:18)
[2023-04-25] MEDS: INSULIN DETEMIR (LEVEMIR) 100 UNIT/ML SYR SQ SCH (09:18)
[2023-04-25] MEDS: ATORVASTATIN 40 MG TAB PO SCH (09:18)
[2023-04-25] MEDS: ACETAMINOPHEN TAB 325 MG TAB PO PRN (09:20)
[2023-04-25 12:02] LABS: Glucose,Whole Blood 169 mg/dL (70-110)
[2023-04-25 14:53] VITALS: BP 117/50; PULSE 61; TEMP 97.6; BMI 32.6
--- NOTE | 2023-04-25 15:22 | DS ---
DISCHARGE SUMMARY CHIEF COMPLAINT: General debility and failure to thrive with frequent falls and inability to ambulate. HISTORY OF PRESENT ILLNESS AND PHYSICAL EXAMINATION: Details of this lady's history and physical can be found in the initial workup. LABORATORY STUDIES: While she is in the hospital, she had laboratory studies, details of which can be found in the laboratory section of her chart. COURSE IN THE HOSPITAL: After admission, she was placed on bedrest, started on intravenous fluids and seen by Infectious Disease and Vascular Surgery for the open stasis ulcers on the lower extremities. She initially became short of breath and was found to have congestive heart failure with preserved ejection fraction, this was treated. Her breathing improved. Because she cannot ambulate any further, [facility] at [facility] and arrangements were made for her to go to [facility] on the . FINAL DIAGNOSES: 1. General debility and failure to thrive. 2. Inability to ambulate. 3. Heart failure with preserved ejection fraction. 4. Stasis disease of lower extremities with edema, cellulitis and ulcers. OPERATIONS: None. CONSULTATIONS: Vascular Surgery and Infectious Disease. CONDITION: She is improved. MMODL / IJN: [id number] /
[2023-04-25 17:46] LABS: Glucose,Whole Blood 102 mg/dL (70-110)
--- NOTE | 2023-04-28 15:51 | CDI ---
Documentation Clarification Form Date: 04/28/2023 03:40:00 PM From: Annette Cristobal Phone: Admit Date: 04/18/2023 10:15:00 AM Patient Name: Jane Malone Visit Number: [id number] Discharge Date: 04/25/2023 07:53:00 PM ATTENTION: The Clinical Documentation Specialists (CDI) and [facility] Coding Staff appreciate your assistance in clarifying documentation. Please respond to the clarification below the line at the bottom and electronically sign. The CDI & [facility] Coding staff will review the response and follow-up if needed. Please note: Queries are made part of the Legal Health Record. If you have any questions, please contact the author of this message via ITS. Dr. Faisal Fleming BLE venostasis, dermatitis, cellulitis/ulcers with DMII is documented per BD Note. Further clarification is requested. History/risk factors: 82yo F, generaldebility, CDCHF, stasisdisease with chroniculcers, cellulitis, noncompliant with treatment, frequent falls Clinical Indicators: Location of ulcer: RLE wounds 2 with some greenishdrainage, LLE to have some superficialulcerationanddrainageplus redness. Treatment: She is fairly poorly motivated andnoncompliant. She has hadproblems withthe BLE for years withstasisdisease,cellulitis, andulcers. She refuses to keep her legs up and she will not come to the office. She has been seen by a house calls occasionally. Apparently, she now is unable to walk In your professional opinion, can you please clarify the etiology of the skin ulcer, if known? [ ] Diabetic Neuropathy [ ] Diabetic Peripheral Vascular Disease [ ] Unable to determine [ ] Other condition, please specify (Last Revision: April 2017) MTDD
--- NOTE | 2023-04-30 13:59 | CDI ---
Documentation Clarification Form Date: 04/30/2023 01:24:52 PM From: Darlene Al RN, CCDS Email: [email or web address] Admit Date: 04/18/2023 10:15:00 AM Patient Name: Jane Malone Visit Number: [id number] Discharge Date: 04/25/2023 07:53:00 PM ATTENTION: The Clinical Documentation Specialists (CDI) and [facility] Coding Staff appreciate your assistance in clarifying documentation. Please respond to the clarification below the line at the bottom and electronically sign. The CDI & [facility] Coding staff will review the response and follow-up if needed. Please note: Queries are made part of the Legal Health Record. If you have any questions, please contact the author of this message via ITS. Dr. Faisal Fleming Your patient had the documented symptom of weakness. Additional clarification regarding the etiology/cause of this symptom is requested. History/Risk Factors: CHF, COPD, DM, GERD, HLD, HTN, OA, venous stasis ulcers, falls. Presented with weakness and falls. Admitted with general debility and cellulitis. Clinical Indicators: ED: "progressively weak and unable to stand." H&P: "Inability to ambulate due to general debility and weakness." ID: "patient presented to hospital with weakness and fall also noticed to having worsening wound especially to the right lower extremity with cellulitis." Discharge summary: "General debility and failure to thrive with frequent falls and inability to ambulate. Because she cannot ambulate any further, [facility] and arrangements were made for her to [facility] on the ." Treatment: PT/OT Case management: d/c to [facility]CF PT: "progressing slowly, needs moderate assist for bed mobility. Recommend FLORI." OT: "decreased strength, decreased endurance, limited range of motion. Discharge recommendations for subacute rehab." Is there a corresponding diagnosis/etiology for this symptom of weakness? [ ] Age related physical debility [ ] Unable to determine [ ] Other, please specify MTDD
--- NOTE | 2023-05-02 13:10 | P.PN ---
Subjective Progress Note Date: 04/25/23 Principal diagnosis: Bilateral lower extremity wound cellulitis and bacteremia Patient is a 82-year-old female with a past medical history significant for Heart Failure, COPD, Diabetes Mellitus, GERD/Reflux, Hyperlipidemia, Hypertension, Osteoarthritis (OA), Pneumonia, Skin Disorder, Thyroid Disorder, bilateral lower extremity venous stasis ulcer and history of cellulitis patient presenting to the ER for evaluation of weakness and fall nonhealing wound to lower extremity cellulitis and the patient also has bacteremia. on today's evaluation that is 04/25/2023, the patient continues to be afebrile the patient is breathing comfortably on room air, the patient denies chest pain , cough or sputum production, patient denies nausea/vomiting and no diarrhea, the patient pain to the lower extremity has decreased in intensity. Feeling better No lab draw today Objective - Vital Signs Vital signs: Vital Signs Temp 97.7 F 04/25/23 08:09 Pulse 71 04/25/23 08:09 Resp 16 04/25/23 08:09 BP 173/61 04/25/23 08:09 Pulse Ox 100 04/25/23 08:09 FiO2 Intake & Output 04/24/23 04/25/23 04/25/23 18:59 06:59 18:59 Intake Total 910 590 Output Total 1600 1200 Balance -690 -610 Weight 83.6 kg Intake: Oral 910 590 Output: Urine 1600 1200 Other: Voiding Method External Catheter External Catheter External Catheter # Voids 1 # Bowel Movements 0 0 - Exam GENERAL DESCRIPTION: An elderly female lying in bed in no distress RESPIRATORY SYSTEM: Unlabored breathing , decreased breath sounds at bases HEART: S1 S2 regular rate and rhythm , ABDOMEN: Soft , no tenderness EXTREMITIES: Lower extremity wound is currently dressed with minimal drainage on the dressing - Labs CBC & Chem 7: 04/20/23 07:54 04/20/23 07:54 Labs: Abnormal Lab Results - Last 24 Hours (Table) 04/24/23 04/24/23 Range/Units 12:21 17:30 POC Glucose (mg/dL) 111 H 125 H (70-110) mg/dL Assessment and Plan (1) Leg wound, right Status: Acute Code(s): S81.801A - UNSPECIFIED OPEN WOUND, RIGHT LOWER LEG, INITIAL ENCOUNTER SNOMED Code(s): 623193355 (2) Bilateral lower leg cellulitis Status: Acute Code(s): L03.116 - CELLULITIS OF LEFT LOWER LIMB; L03.115 - CELLULITIS OF RIGHT LOWER LIMB SNOMED Code(s): 851644439 (3) MSSA bacteremia Status: Acute Code(s): R78.81 - BACTEREMIA; B95.61 - METHICILLIN SUSCEP STAPH INFCT CAUSING DIS CLASSD ELSWHR SNOMED Code(s): 257447918 (4) Penicillin allergy Status: Acute Code(s): Z88.0 - ALLERGY STATUS TO PENICILLIN SNOMED Code(s): 40925049 Plan: 1patient presented to hospital with weakness and fall also noticed to having worsening wound especially to the right lower extremity with cellulitis and some purulent drainage likely component of wound infection and cellulitis likely from gram-positive skin belinda 2-patient with Staph aureus bacteremia source likely lower extremity wound and cellulitis, blood culture has been repeated 04/20/2023 and so far negative 3-local wound care with Aquacel silver dressing followed by Arnoldo wrap from just about the total below the knee change every 24-48 hours depending upon drainage 4-positive urine culture Enterococcus faecalis patient didn't have any urinary symptoms more likely asymptomatic bacteriuria 5-patient seemed to have cleared her bacteremia , plan is for two-week course of cefazolin 2 g every 8 hours from a negative blood culture and a close outpatient follow-up Dictation was produced using [employer] dictation software. please excuse any grammatical, word or spelling errors. Time with Patient: Less than 30
--- NOTE | 2023-05-19 16:18 | CDI ---
Documentation Clarification Form Date: 05/19/2023 04:03:55 PM From: Annette Cristobal Phone: Admit Date: 04/18/2023 10:15:00 AM Patient Name: Jane Malone Visit Number: [id number] Discharge Date: 04/25/2023 07:53:00 PM ATTENTION: The Clinical Documentation Specialists (CDI) and [facility] Coding Staff appreciate your assistance in clarifying documentation. Please respond to the clarification below the line at the bottom and electronically sign. The CDI & [facility] Coding staff will review the response and follow-up if needed. Please note: Queries are made part of the Legal Health Record. If you have any questions, please contact the author of this message via ITS. Dr. Bryce Cote Unspecified CKD is documented per DC Summary. Additional clarification regarding the stage of CKD is requested. History/Risk Factors: 82yo F, CHF,COPD,DMII,GERD/Reflux, HLD, HTN, OA, thyroid Disorder, BLEvenous stasis ulcerw Hxcellulitis Clinical Indicators: BUN: 26- 31 Creatinine: 1.15- 1.29 AfAm GFR: 45-51 NonAfAm GFR: 39-45 Treatment: monitor Please clarify the stage of the CKD, if known: [ ] CKD Stage 3a (GFR 45-59) [ ] CKD Stage 3b (GFR 30-44) [ x ] Other, please specify __i am not PCP or pecan gatherer , direct question to the right physican [ ] Unable to determine (Template Last revised: August 2020) MTDD
== END 2023-04-25 19:53 | DRG 603 ==
LOC: EC 08:15 → 5NMEDONC 10:15
PROVIDERS: ADMIT Family Medicine; ATTEND Family Medicine
DX: L03.115 Cellulitis of right lower limb (principal); L97.811 Non-pressure chronic ulcer of other part of right lower leg limited to breakdown of skin; I50.32 Chronic diastolic (congestive) heart failure; I83.218 Varicose veins of right lower extremity with both ulcer of other part of lower extremity and inflammation; I83.228 Varicose veins of left lower extremity with both ulcer of other part of lower extremity and inflammation; L97.821 Non-pressure chronic ulcer of other part of left lower leg limited to breakdown of skin; R78.81 Bacteremia; N39.0 Urinary tract infection, site not specified; E11.42 Type 2 diabetes mellitus with diabetic polyneuropathy; E11.22 Type 2 diabetes mellitus with diabetic chronic kidney disease; J44.9 Chronic obstructive pulmonary disease, unspecified; L03.116 Cellulitis of left lower limb; R62.7 Adult failure to thrive; S91.001A Unspecified open wound, right ankle, initial encounter; B95.61 Methicillin susceptible Staphylococcus aureus infection as the cause of diseases classified elsewhere; E03.9 Hypothyroidism, unspecified; R29.6 Repeated falls; M17.0 Bilateral primary osteoarthritis of knee; E78.5 Hyperlipidemia, unspecified; R01.1 Cardiac murmur, unspecified; K21.9 Gastro-esophageal reflux disease without esophagitis; W07.XXXA Fall from chair, initial encounter; Z79.4 Long term (current) use of insulin; Y92.009 Unspecified place in unspecified non-institutional (private) residence as the place of occurrence of the external cause; Z79.899 Other long term (current) drug therapy; Z79.890 Hormone replacement therapy; Z79.51 Long term (current) use of inhaled steroids; Z88.0 Allergy status to penicillin; Z91.81 History of falling; Z87.891 Personal history of nicotine dependence; Z91.199 Patient's noncompliance with other medical treatment and regimen due to unspecified reason; N18.9 Chronic kidney disease, unspecified
CPT/HCPCS: 36410; 36415; 71046; 76937; 80053; 81001; 82565; 83036; 83605; 83735; 83880; 84484; 85025; 85610; 85730; 86140; 87040; 87077; 87086; 87186; 93005; 93306; 94640; 94760; 96374; 96375; 96376; 99285

== ENCOUNTER 2024-05-17 04:46 | Observation (INO) | payer MEDICARE, OTHER ==
[2024-05-17] MEDS: ACETAMINOPHEN TAB 325 MG TAB PO STA (05:19)
--- NOTE | 2024-05-17 05:23 | ED ---
Fall HPI - General Chief Complaint: Fall Stated Complaint: Fall Time Seen by Provider: 05/17/24 04:48 Source: patient Mode of arrival: EMS - History of Present Illness Initial Comments: Patient is an 83-year-old female with a past medical history of heart failure COPD, diabetes, GERD, hyperlipidemia, hypertension, thyroid disorder presenting today for a fall from bed. Patient states that she was trying to get back into bed when she could not get her legs into her bed causing her to fall off her bed and onto a fan on the wood floor. She hit the back of her head against the bed frame. No loss of consciousness does think she hit her neck. Denies numbness or weakness in her extremities but does endorse pain at her gluteal cleft where she states she has had a sore. She had this pain prior to her fall. Denies back pain, denies headache. Denies chest pain. Endorses chronic abdominal pain. Endorses pain in her right heel. States she has had progressive lower extremity swelling. States she could not get up secondary to pain and weakness. Called her daughter who called EMS and came to the home to get the patient. States she was on the floor for about an hour and a half prior to their arrival. Denies recent fevers or chills, dysuria or hematuria. States she has been short of breath however states this is chronic for her. Has a chronic wound gluteal cleft that she has a home health nurse caring for. Is not on blood thinners. Pain 4/10 at area of sacral wound. - Related Data Home Medications Medication Instructions Recorded Confirmed Levothyroxine Sodium 100 mcg PO DAILY 10/02/19 04/18/23 amLODIPine [Norvasc] 5 mg PO DAILY 06/07/22 04/18/23 Atorvastatin Calcium [Lipitor] 40 mg PO DAILY 04/18/23 04/18/23 Furosemide [Lasix] 40 mg PO DAILY 04/18/23 04/18/23 Sacubitril/Valsartan [Entresto 24 1 tab PO BID 04/18/23 04/18/23 mg-26 mg Tablet] carvediloL [Coreg] 3.125 mg PO BID 04/18/23 04/18/23 Previous Rx's Medication Instructions Recorded Acetaminophen Tab [Tylenol] 650 mg PO Q8HR PRN 30 Days #90 tab 04/25/23 INSULIN ASPART (NovoLOG) [NovoLOG 6 unit SQ AC-TID #90 each 04/25/23 (formulary)] Insulin Detemir (Levemir) [Levemir] 30 unit SQ DAILY@0700 #30 each 04/25/23 Ipratropium-Albuterol Nebulize 3 ml INHALATION RT-QID PRN 30 Days 04/25/23 [Duoneb 0.5 mg-3 mg/3 ml Soln] #120 each ceFAZolin [Kefzol] 2 gm IVP Q8HR #30 each 04/25/23 Allergies Allergy/AdvReac Type Severity Reaction Status Date / Time Penicillins Allergy Rash/Hives Verified 05/17/24 04:48 Review of Systems ROS Statement: Those systems with pertinent positive or pertinent negative responses have been documented in the HPI. ROS Other: All systems not noted in ROS Statement are negative. Past Medical History Past Medical History: Heart Failure, COPD, Diabetes Mellitus, GERD/Reflux, Hyperlipidemia, Hypertension, Osteoarthritis (OA), Pneumonia, Skin Disorder, Thyroid Disorder Additional Past Medical History / Comment(s): IDDM type II, neuropathy L hand, bilateral lower leg venostasis/dermatitis/cellulitis/ulcers/edema, FALLS, weakness, arthritis bilateral knees, vertigo, hypothyroid History of Any Multi-Drug Resistant Organisms: None Reported Past Surgical History: Breast Surgery, Cholecystectomy, Tonsillectomy Additional Past Surgical History / Comment(s): Benign mass removed from neck, R breast benign biopsy, R eye laser surgery/pt cannot recall reason. Past Anesthesia/Blood Transfusion Reactions: No Reported Reaction Past Psychological History: No Psychological Hx Reported Smoking Status: Former smoker Past Alcohol Use History: None Reported Past Drug Use History: None Reported - Past Family History Father Family Medical History: Hypertension, Myocardial Infarction ([place]) Additional Family Medical History / Comment(s): X3 [place], Mother Family Medical History: Cancer Additional Family Medical History / Comment(s): DIES FROM [place] General Exam - General Exam Comments Initial Comments: PE: CONSTITUTIONAL: no apparent distress, chronically ill appearing, nontoxic SKIN: Warm, dry, no jaundice, hives or petechiae. Circumferential erythema around left ankle, superficial 1 cm wound posterior distal LLE, mild erythema distal RLE, stage 2- 1 cm x 3 mm pressure ulcer at top of gluteal cleft EYES: Pupils are equally round, extraocular movements intact without nystagmus, clear conjunctiva, non-icteric sclera HENT: Normocephalic, TTP left posterior occiput without palpable hematoma, moist mucus membranes, oropharynx clear without exudates NECK: , Pt arrives without C collar in place and moving her neck through full ROM, however C collar applied on arrival 2/2 endorsed neck pain, no midline spinal TTP PULMONARY: Clear to auscultation without wheezes, rhonchi, or rales, normal excursion, no accessory muscle use and no stridor. Limited by pt's body habitus and positioning CARDIOVASCULAR: Regular rate, rhythm, normal S1 and S2. No appreciated murmurs, rubs or gallops. Strong radial and DP pulses with intact distal perfusion. 2-3+ LE edema bilateral LE extending up to knees GASTROINTESTINAL: Soft, active bowel sounds throughout, TTP periumbilical region,reducible umbilical hernia, non-distended, no palpable masses, no rebound or guarding. No hepatosplenomegaly MUSCULOSKELETAL: Extremities have no gross deformity, , no joint swelling, UE nontender to palpation, without evidence of trauma, right hip, medial malleolus, heel TTP, patient has pain with plantar/dorsiflexion right ankle, genearlized soft tissue TTP without bony TTP or joint TTP of LLE NEUROLOGIC:_a/o x 3, GCS 15, normal mentation and speech. Moves all extremities x 4 without motor or sensory deficit PSYCHIATRIC:_normal mood and affect, thought process is clear and linear Limitations: no limitations Course Vital Signs 05/17/24 05/17/24 05/17/24 04:48 06:05 06:58 Temperature 97.6 F Pulse Rate 72 77 72 Respiratory 18 18 18 Rate Blood Pressure 168/51 187/69 116/93 O2 Sat by Pulse 98 96 99 Oximetry 05/17/24 07:42 Temperature 96.9 F L Pulse Rate 63 Respiratory 20 Rate Blood Pressure 127/47 O2 Sat by Pulse 98 Oximetry Medical Decision Making - Medical Decision Making Was pt. sent in by a medical professional or institution (, PA, ADMINISTRATIVE AIDE, urgent care, hospital, or [facility]...) When possible be specific @ -No Did you speak to anyone other than the patient for history (EMS, parent, family, police, friend...)? What history was obtained from this source @ -No Did you review nursing and triage notes (agree or disagree)? Why? @ -I reviewed and agree with nursing and triage notes Were old charts reviewed (outside hosp., previous admission, EMS record, old EKG, old radiological studies, urgent care reports/EKG's, [facility] records)? Report findings @ -Medical records reviewed Differential Diagnosis (chest pain, altered mental status, abdominal pain women, abdominal pain men, vaginal bleeding, weakness, fever, dyspnea, syncope, headache, dizziness, GI bleed, back pain, seizure, CVA, palpatations, mental health, musculoskeletal)? @ -Differential Weakness: Hypoglycemia, shock, sepsis, hyponatremia, anemia, infection, [place], ETOH, adverse medicine reaction, overdose, stroke, this is not meant to be an all-inclusive list. Differential Musculoskeletal Muscular strain, contusion, ligament sprain, fracture, arthritis, septic arthritis, bursitis, cellulitis, muscle spasm, nerve compression, DVT, arterial occlusion, herpes zoster, electrolyte abnormality, tumor.... This is not meant to be in all inclusive list EKG interpreted by me (3pts min.). @ -Normal sinus rhythm, rate 70 bpm, [place] interval 173 ms, QT/QTc 399/420 ms, normal axis, no ST elevations or depressions, no arrhythmia X-rays interpreted by me (1pt min.). @ -I see no evidence of fracture or dislocation on hip, pelvis, femur or tib-fib x-ray CT interpreted by me (1pt min.). @CT brain shows no evidence of hemorrhage, CT C-spine shows no fracture or dislocation, on review of CT chest abdomen pelvis I see no evidence of fracture, free fluid, free air or other acute process U/S interpreted by me (1pt. min.). @ -None done What testing was considered but not performed or refused? (CT, X-rays, U/S, labs)? Why? @ -None What meds were considered but not given or refused? Why? @ -None Did you discuss the management of the patient with other professionals (professionals i.e. , PA, ADMINISTRATIVE AIDE, lab, RT, psych nurse, social psychologist, terminal makeup operator, teacher, port patrol officer, nurse case manager)? Give summary @ -No Was smoking cessation discussed for >3mins.? @ -No Was critical care preformed (if so, how long)? @ -No Were there social determinants of health that impacted care today? How? (Homelessness, low income, unemployed, alcoholism, drug addiction, transportat ion, low edu. Level, literacy, decrease access to med. care, usp, rehab)? @ -No Was there de-escalation of care discussed even if they declined (Discuss DNR or withdrawal of care, Hospice)? @ -No What co-morbidities impacted this encounter? (DM, HTN, Smoking, COPD, CAD, Cancer, CVA, ARF, Chemo, Hep., AIDS, mental health diagnosis, sleep apnea, morbid obesity)? @COPD, hypertension, hyperlipidemia, heart failure Was patient admitted / discharged? Hospital course, mention meds given and route, prescriptions, significant lab abnormalities, going to OR and other pertinent info. @Admission Patient is an 83-year-old female past medical history hypertension, hyperlipidemia, heart failure presenting today for a fall out of bed onto a fan and wood floor, did not hit her head, negative LOC. Unable to stand afterwards. On assessment patient is chronically ill-appearing but nontoxic and in no acu te distress. Arrives without c-collar in place as she refused for EMS however upon endorsing neck pain c-collar was applied here. Endorses tenderness outpatient the left posterior scalp without palpable contusions or skull fracture, no midline spinal tenderness to palpation, upper extremities are atraumatic and nontender, no midline spinal tenderness palpation of the back, small stage I-II sacral ulcer at the gluteal cleft, patient endorses generalized tenderness palpation of the lower extremities however point tenderness to palpation of the right hip, right heel and right medial malleolus. Some limited range of motion with plantar and dorsiflexion of the right ankle due to pain. Lower extremities are neurovascularly intact, 2-3+ edema in the bilateral lower extremities extending up to the knees, mild erythema circumferentially in the ankles worse on the left than the right with a small 1 cm superficial ulcer/wound to the posterior aspect of the distal left lower extremity. Discus sed with patient plan for Tylenol, CT brain C-spine, chest abdomen pelvis plain films, basic labs as it appears patient could not get out back into bed due to pain however out of concern for generalized weakness causing difficultly standing will obtain EKG, troponin, BNP, CBC, CMP, TSH, UA. Reviewed patient's labs. Significant potassium 5.3, Hemoglobin 10.2, appears baseline for the, prior was obtained on 04/20/2023 and was 9.5 BUN/creatinine 31/1.39, GFR 35, creatinine is slightly increased from prior on 04/20/2023 was 1.15 GFR at that time was 45. Could be slight HUBER 2/2 central volume depletion however patient appears peripherally fluid overloaded so IV fluids withheld. No signs of hyperkalemia on EKG. Given patient appears peripherally fluid overloaded, BNP elevated currently 9490 and hyperkalemia as well as hyperglycemia, blood glucose 217, ordered 40 mg IV Lasix and 10 units of IV insulin for hyperkalemia, hyperglycemia and CHF. CT chest abdomen pelvis reviewed, read by radiologist as "slightly suboptimal without IV contrast, small soft tissue contusion injury to the anterior wall of the lower pelvis, no acute posttraumatic findings within the thorax, abdomen or pelvis, no acute osseous fracture or abnormal fluid collection or evidence of solid organ injury is identified". CT brain C spine negative for acute traumatic process. Plain films negative for fracture or dislocation. After reviewing patient's imaging I updated patient to imaging findings and cleared their C- Spine. There is no midline cervical neck tenderness or step-offs. The patient denies any numbess, tingling, or weakness of the extremities when moving neck through full ROM. The patient is able to range their neck completely without midline cervical pain, numbness, tingling or weakness. Updated patient to findings. Discussed above plan. With patient her fall and the weakness that led to her being unable to stand today. Given too weak to stand and does live at home alone, addition to above findings discussed with patient plan for admission. Patient agreeable plan. Of note patient is h ypertensive, is due for her home antihypertensives. Patient's home Norvasc and Coreg ordered. Case discussed with Dr. Shankar, [facility]. Kindly accepts patient for admission. UA pending at time of admission. Pt admitted in stable condition. Undiagnosed new problem with uncertain prognosis? @ -No Drug Therapy requiring intensive monitoring for toxicity (Heparin, Nitro, Insulin, Cardizem)? @ -No Were any procedures done? @ -No Diagnosis/symptom? @ -Generalized weakness, fall Acute, or Chronic, or Acute on Chronic? @Acute Uncomplicated (without systemic symptoms) or Complicated (systemic symptoms)? @ Complicated Side effects of treatment? @ -No Exacerbation, Progression, or Severe Exacerbation? @ -No Poses a threat to life or bodily function? How? (Chest pain, [place], [place], pneumonia, PE, COPD, DKA, ARF, appy, cholecystitis, CVA, Diverticulitis, Homicidal, Suicidal, threat to staff... and all critical care pts) @ -No - Lab Data Result diagrams: 05/17/24 05:10 05/17/24 05:10 Lab Results 05/17/24 05/17/24 05/17/24 Range/Units 05:10 05:10 05:10 WBC 7.3 (3.8-10.6) k/uL RBC 3.63 L (3.80-5.40) m/uL Hgb 10.2 L (11.4-16.0) gm/dL Hct 32.6 L (34.0-46.0) % MCV 90.0 (80.0-100.0) fL MCH 28.0 (25.0-35.0) pg MCHC 31.1 (31.0-37.0) g/dL RDW 15.3 (11.5-15.5) % Plt Count 266 (150-450) k/uL MPV 7.6 Neutrophils % 71 % Lymphocytes % 16 % Monocytes % 7 % Eosinophils % 4 % Basophils % 0 % Neutrophils # 5.2 (1.3-7.7) k/uL Lymphocytes # 1.2 (1.0-4.8) k/uL Monocytes # 0.5 (0-1.0) k/uL Eosinophils # 0.3 (0-0.7) k/uL Basophils # 0.0 (0-0.2) k/uL Hypochromasia Marked PT 10.5 (10.0-12.5) sec INR 0.9 (<1.2) APTT 22.4 (22.0-30.0) sec Sodium 140 (137-145) mmol/L Potassium 5.3 H (3.5-5.1) mmol/L Chloride 116 H (98-107) mmol/L Carbon Dioxide 18 L (22-30) mmol/L Anion Gap 6 mmol/L BUN 31 H (7-17) mg/dL Creatinine 1.39 H (0.52-1.04) mg/dL Est GFR (CKD-EPI)AfAm 41 (>60 ml/min/1.73 sqM) Est GFR (CKD-EPI)NonAf 35 (>60 ml/min/1.73 sqM) Glucose 217 H (74-99) mg/dL Calcium 9.5 (8.4-10.2) mg/dL Magnesium 2.0 (1.6-2.3) mg/dL Total Bilirubin 0.5 (0.2-1.3) mg/dL AST 15 (14-36) U/L ALT 6 (4-34) U/L Alkaline Phosphatase 135 H (38-126) U/L Creatine Kinase (30-135) U/L Troponin I (0.000-0.034) ng/mL NT-Pro-B Natriuret Pep 9490 pg/mL Total Protein 6.7 (6.3-8.2) g/dL Albumin 3.4 L (3.5-5.0) g/dL TSH 3.430 (0.465-4.680) mIU/L Influenza Type A (PCR) (Not Detectd) Influenza Type B (PCR) (Not Detectd) RSV (PCR) (Not Detectd) SARS-CoV-2 (PCR) (Not Detectd) 05/17/24 05/17/24 05/17/24 Range/Units 05:10 05:10 05:10 WBC (3.8-10.6) k/uL RBC (3.80-5.40) m/uL Hgb (11.4-16.0) gm/dL Hct (34.0-46.0) % MCV (80.0-100.0) fL MCH (25.0-35.0) pg MCHC (31.0-37.0) g/dL RDW (11.5-15.5) % Plt Count (150-450) k/uL MPV Neutrophils % % Lymphocytes % % Monocytes % % Eosinophils % % Basophils % % Neutrophils # (1.3-7.7) k/uL Lymphocytes # (1.0-4.8) k/uL Monocytes # (0-1.0) k/uL Eosinophils # (0-0.7) k/uL Basophils # (0-0.2) k/uL Hypochromasia PT (10.0-12.5) sec INR (<1.2) APTT (22.0-30.0) sec Sodium (137-145) mmol/L Potassium (3.5-5.1) mmol/L Chloride (98-107) mmol/L Carbon Dioxide (22-30) mmol/L Anion Gap mmol/L BUN (7-17) mg/dL Creatinine (0.52-1.04) mg/dL Est GFR (CKD-EPI)AfAm (>60 ml/min/1.73 sqM) Est GFR (CKD-EPI)NonAf (>60 ml/min/1.73 sqM) Glucose (74-99) mg/dL Calcium (8.4-10.2) mg/dL Magnesium (1.6-2.3) mg/dL Total Bilirubin (0.2-1.3) mg/dL AST (14-36) U/L ALT (4-34) U/L Alkaline Phosphatase (38-126) U/L Creatine Kinase 41 (30-135) U/L Troponin I <0.012 (0.000-0.034) ng/mL NT-Pro-B Natriuret Pep pg/mL Total Protein (6.3-8.2) g/dL Albumin (3.5-5.0) g/dL TSH (0.465-4.680) mIU/L Influenza Type A (PCR) Not Detected (Not Detectd) Influenza Type B (PCR) Not Detected (Not Detectd) RSV (PCR) Not Detected (Not Detectd) SARS-CoV-2 (PCR) Not Detected (Not Detectd) Disposition Clinical Impression: Generalized weakness, Congestive heart failure Disposition: ADMITTED IP TO THIS HOSP Condition: Stable
[2024-05-17 05:31] LABS: Basophils % (A) 0 %; Eosinophils # (A) 0.3 k/uL (0-0.7); Eosinophils % (A) 4 %; HCT 32.6 % (34.0-46.0); HGB 10.2 gm/dL (11.4-16.0); Hypochromasia Marked; Lymphocytes # (A) 1.2 k/uL (1.0-4.8); Lymphocytes % (A) 16 %; MCHC 31.1 g/dL (31.0-37.0); Mean Platelet Volume 7.6; Monocytes # (A) 0.5 k/uL (0-1.0); Monocytes % (A) 7 %; Neutrophils # (A) 5.2 k/uL (1.3-7.7); Neutrophils % (A) 71 %; Platelet Count 266 k/uL (150-450); RBC 3.63 m/uL (3.80-5.40); RDW 15.3 % (11.5-15.5); WBC 7.3 k/uL (3.8-10.6)
[2024-05-17 05:37] LABS: INR 0.9 (<1.2); Partial Thromboplastin Time 22.4 sec (22.0-30.0); Prothrombin Time 10.5 sec (10.0-12.5)
[2024-05-17 05:48] LABS: ALT 6 U/L (4-34); AST 15 U/L (14-36); African American GFR (CKD) 41 (>60 ml/min/1.73 sqM); Albumin 3.4 g/dL (3.5-5.0); Alkaline Phosphatase 135 U/L (38-126); Anion Gap 6 mmol/L; Blood Urea Nitrogen 31 mg/dL (7-17); Calcium 9.5 mg/dL (8.4-10.2); Carbon Dioxide 18 mmol/L (22-30); Chloride 116 mmol/L (98-107); Glucose 217 mg/dL (74-99); Non-African American GFR(CKD) 35 (>60 ml/min/1.73 sqM); Potassium 5.3 mmol/L (3.5-5.1); Sodium 140 mmol/L (137-145); Total Bilirubin 0.5 mg/dL (0.2-1.3); Total Protein 6.7 g/dL (6.3-8.2)
[2024-05-17 05:56] LABS: NT-Pro-B-Type Natriuretic Pept 9490 pg/mL
--- NOTE | 2024-05-17 06:27 | XR ---
EXAMINATION TYPE: XR pelvis AP view, XR femur RT DATE OF EXAM: 05/17/2024 CLINICAL HISTORY: Pelvic and right hip pain. Falling injury TECHNIQUE: A single AP view of the pelvis is obtained. Two views of the right femur are obtained. COMPARISON: Same day CT. FINDINGS: There is no acute fracture/dislocation evident in the pelvis. Moderate narrowing of both hip joints i s present. Pubic symphysis is intact. No acute displaced fracture of the right femur. Moderate to sev ere tricompartment joint space loss in the right knee is seen. There is posterior medial arteriovascu lar calcification noted. IMPRESSION: There is no acute fracture or dislocation in the pelvis or right femur. [facility], , 05/17/2024 6:24 AM
--- NOTE | 2024-05-17 06:28 | XR ---
EXAMINATION TYPE: XR tibia fibula RT DATE OF EXAM: 05/17/2024 CLINICAL HISTORY: Pain after fall injury TECHNIQUE: Two views of the right leg are obtained. COMPARISON: None. FINDINGS: There is no acute fracture or dislocation seen in the right tibia or fibula. Moderate to s evere tricompartment degenerative change in the right knee. Ankle Mortise symmetry is maintained. Mil [id number] diffuse subcutaneous edema is noted. IMPRESSION: There is no acute fracture or dislocation seen in the right tibia or fibula. [facility], , 05/17/2024 6:25 AM
--- NOTE | 2024-05-17 06:31 | CT ---
EXAMINATION TYPE: CT brain todd patel DATE OF EXAM: 05/17/2024 COMPARISON: Prior CT brain June 07, 2022 HISTORY: Patient had a fall, fell on right side, best possible due to motion, patient states her righ t heel hurts and can not stop her movement despite medication, support cushions, and the safety belt CT DLP: 1059 mGycm. Automated Exposure Control for Dose Reduction was Utilized. TECHNIQUE: CT scan of the head and cervical spine are performed without contrast. FINDINGS: There is no acute intracranial hemorrhage or midline shift identified. Mild ventricular a nd sulcal prominence redemonstrated. Mild to moderate low-attenuation in periventricular white matter again seen. The calvarium is intact. Bilateral aphakia is redemonstrated. The visualized sinuses are clear. Cervical spine is visualized in its entirety from C1 through upper thoracic levels and demonstrates d extroconvex scoliosis or positioning without evidence of acute fracture or dislocation. Prevertebral soft tissue appears within normal limits. The C1-C2 articulation is within normal limits on the cor onal images. Vertebral body heights and disc space heights are preserved. There are large anterior o steophytes in the mid to lower cervical spine noted. There is mild/moderate calcified plaque bilatera l carotid bulb level. Lung apices are clear without pneumothorax. Somewhat small size thyroid gland i s noted. IMPRESSION: 1. There is no acute fracture or dislocation evident in the cervical spine. 2. No acute intracranial hemorrhage or midline shift is seen. [facility], , 05/17/2024 6:29 AM
--- NOTE | 2024-05-17 06:37 | CT ---
EXAMINATION TYPE: CT ChestAbdPelvis wo con DATE OF EXAM: 05/17/2024 COMPARISON: CT abdomen and pelvis 2020 HISTORY: Patient had a fall, fell on right side, best possible due to motion, patient states her righ t heel hurts and can not stop her movement despite medication, support cushions, and the safety belt CT DLP: 1023 mGycm. Automated Exposure Control for Dose Reduction was Utilized. TECHNIQUE: CT scan of the thorax, abdomen and pelvis is performed without IV contrast. FINDINGS: Within the limitations of a noncontrast study, the following observations are made. LUNGS: There is small right pleural effusion. Left lung is clear. MEDIASTINUM: No cardiomegaly. No pericardial effusion is seen. Coronary artery calcification is pr esent. LIVER/GB: Cholecystectomy clips are seen. PANCREAS: Moderate generalized atrophy. SPLEEN: No significant abnormality is seen. ADRENALS: No significant abnormality is seen. KIDNEYS: Cortical thinning bilaterally. No hydronephrosis seen bilaterally. BOWEL: Small sized hiatal hernia. Sigmoid colonic diverticula. No abnormal small or large bowel dilat ation. GENITAL ORGANS: Anteverted uterus. LYMPH NODES: No greater than 1cm abdominal or pelvic lymph nodes are appreciated. OSSEOUS STRUCTURES: No significant abnormality is seen. OTHER: Mild to moderate fat stranding anterior wall of the left lower pelvis axial image 116. Moderat e size fat-containing ventral wall hernia just left of midline axial image 89. Moderate to severe alycia cified plaque of the abdominal aorta extends into the iliac branch vessels IMPRESSION: Slightly suboptimal without IV contrast. Small soft tissue contusion injury anterior wall of the lower pelvis. No acute posttraumatic finding within the thorax, abdomen, or pelvis in particu lar No acute osseous fracture, abnormal fluid collection, or evidence of solid organ injury is identi fied. [facility], , 05/17/2024 6:34 AM
[2024-05-17] MEDS: INSULIN REGULAR 100 UNIT/ML VIAL (IV) IV ONE (06:51)
[2024-05-17] MEDS: FUROSEMIDE 10 MG/ML 4 ML VIAL IV STA (06:51)
[2024-05-17 07:40] LABS: Glucose,Whole Blood 113 mg/dL (70-110)
[2024-05-17] MEDS: FUROSEMIDE 40 MG TAB PO SCH (08:16)
[2024-05-17] MEDS: INSULIN ASPART (NovoLOG) 100 UNIT/ML VIAL SQ SCH ×2 (08:16→18:17)
[2024-05-17] MEDS ORDERED: INSULIN DETEMIR (LEVEMIR) 100 UNIT/ML SYR SQ SCH (08:30)
[2024-05-17] MEDS ORDERED: amLODIPine 5 MG TAB PO SCH (08:30)
[2024-05-17] MEDS ORDERED: FUROSEMIDE 40 MG TAB PO SCH (09:00)
[2024-05-17] MEDS ORDERED: ENOXAPARIN 40 MG/0.4 ML SYRINGE SQ SCH (09:00)
[2024-05-17] MEDS: ENOXAPARIN 30 MG/0.3 ML SYRINGE SQ SCH (09:01)
[2024-05-17] MEDS: carvediloL 3.125 MG TAB PO SCH (09:03)
[2024-05-17] MEDS: metOLazone 5 MG TAB PO SCH (09:03)
[2024-05-17 09:25] LABS: Appearance,Urine Clear (Clear); Bilirubin,Urine Negative (Negative); Blood,Urine Negative (Negative); Color,Urine Colorless; Glucose,Urine (UA) Negative (Negative); Hyaline Casts,Urine 3 /lpf (0-2); Ketones,Urine Negative (Negative); Leukocyte Esterase,Urine Trace (Negative); Nitrite,Urine Negative (Negative); PH, Urine 5.5 (5.0-8.0); Protein,Urine 1+ (Negative); RBC,Urine 1 /hpf (0-5); Specific Gravity,Urine 1.012 (1.001-1.035); Squamous Epithelial Cell,Urine <1 /hpf (0-4); Urobilinogen,Urine <2.0 mg/dL (<2.0); WBC,Urine 6 /hpf (0-5)
[2024-05-17 12:09] LABS: Glucose,Whole Blood 109 mg/dL (70-110)
--- NOTE | 2024-05-17 12:35 | P.CRDCN ---
History of Present Illness History of present illness: HISTORY OF PRESENT ILLNESS: This is a 83-year-old female with a past medical history significant for hypertension, hyperlipidemia, diabetes, and congestive heart failure. Patient does not follow with college sports coach. We have been asked to see the patient in consultation for congestive heart failure. Patient examined at the bedside. Patient presented to the hospital after sustaining a fall at home. Patient denies losing consciousness. She states when she fell she was unable to get up. The patient denies having any chest pain or pressure. She does report having shortness of breath with exertion which is somewhat chronic for her. The patient was found to be in acute CHF and was started on IV diuretics. DIAGNOSTICS: - EKG reveals sinus mechanism with no signs of acute ischemia - Laboratory data: WBC 7.3. Hemoglobin 10.2. Platelet count 266. Sodium 140. Potassium 5.3. BUN 31. Creatinine 1.39. Troponin negative x 1. proBNP 9490. - Current home cardiac medications include Lipitor 40 mg at night, Lasix 40 mg twice a day, carvedilol 3.125 mg twice a day, Zaroxolyn 5 mg daily - Most recent echocardiogram obtained in April 2023 revealing ejection fraction 55 to 60%, mild pulmonary hypertension, trace to mild MR, and mild TR REVIEW OF SYSTEMS: At the time of my exam: CONSTITUTIONAL: Denies fever or chills. HEENT: Denies blurred vision, vision changes, or eye pain. Denies hemoptysis CARDIOVASCULAR: Denies chest pain. Denies orthopnea. Denies PND. Denies palpi tations RESPIRATORY: + shortness of breath. GASTROINTESTINAL: Denies abdominal pain. Denies nausea or vomiting. HEMATOLOGIC: Denies bleeding disorders. GENITOURINARY: Denies any blood in urine. SKIN: Denies pruitis. Denies rash. PHYSICAL EXAM: VITAL SIGNS: Reviewed. GENERAL: Well-developed in no acute distress. HEENT: Head is normocephalic. Pupils are equal, round. Sclerae anicteric. Mucous membranes of the mouth are moist. Neck supple. No JVD or thyromegaly LUNGS: Respirations even and unlabored. Lungs essentially clear to auscultation bilaterally, diminished. HEART: Regular rate and rhythm. S1 and S2 heard. Systolic murmur noted ABDOMEN: Soft. Nondistended. Nontender. EXTREMITIES: Normal range of motion. No clubbing or cyanosis. Peripheral pulses intact. Bilateral lower extremity edema with chronic stasis changes noted NEUROLOGIC: Awake and alert. Oriented x 3. ASSESSMENT: Status post mechanical fall Acute on chronic heart failure with preserved EF, 55 to 60% in 04/2023 Chronic kidney disease Hypertension Hyperlipidemia Mild pulmonary hypertension Right internal carotid artery stenosis, 50 to 70% Diabetes Decubitus ulcer PLAN: Obtain 2D echo to assess cardiac structure and function Resume home cardiac medications Begin IV Lasix 40 mg every 12 hours Daily weights, accurate intake and output, and monitoring of kidney function Further recommendations pending patient course Nurse practitioner note has been reviewed by physician. Signing provider agrees with the documented findings, assessment, and plan of care documented by RING CUTTER LATHE OPERATOR as a scribe. Past Medical History Past Medical History: Heart Failure, COPD, Diabetes Mellitus, GERD/Reflux, Hyperlipidemia, Hypertension, Osteoarthritis (OA), Pneumonia, Skin Disorder, Thyroid Disorder Additional Past Medical History / Comment(s): IDDM type II, neuropathy L hand, bilateral lower leg venostasis/dermatitis/cellulitis/ulcers/edema, FALLS, weakness, arthritis bilateral knees, vertigo, hypothyroid History of Any Multi-Drug Resistant Organisms: None Reported Past Surgical History: Breast Surgery, Cholecystectomy, Tonsillectomy Additional Past Surgical History / Comment(s): Benign mass removed from neck, R breast benign biopsy, R eye laser surgery/pt cannot recall reason. Past Anesthesia/Blood Transfusion Reactions: No Reported Reaction Past Psychological History: No Psychological Hx Reported Additional Psychological History / Comment(s): [Pt recently was at [facility] for rehab and was discharged from there on 07/05/21. She is to establish with Residential home care. Her [facility] and [facility] live nearby and assist pt with getting groceries, housework. Pt states she can no longer get out of her 2 story home d/t stairs at both doors. She lives on the first floor. She gets meals on wheels. She ambulates with a walker. She manages her own medications and sponge bathes and dresses herself.] Smoking Status: Former smoker Past Alcohol Use History: None Reported Additional Past Alcohol Use History / Comment(s): Pt started smoking in 1959 and quit in 1999 Past Drug Use History: None Reported - Past Family History Father Family Medical History: Hypertension, Myocardial Infarction ([place]) Additional Family Medical History / Comment(s): X3 [place], Mother Family Medical History: Cancer Additional Family Medical History / Comment(s): DIES FROM COLON CA Medications and Allergies Home Medications Medication Instructions Recorded Confirmed Type Levothyroxine Sodium 100 mcg PO DAILY 10/02/19 05/17/24 History Atorvastatin Calcium [Lipitor] 40 mg PO HS 04/18/23 05/17/24 History Furosemide [Lasix] 40 mg PO BID 04/18/23 05/17/24 History carvediloL [Coreg] 3.125 mg PO BID 04/18/23 05/17/24 History Insulin NPH Hum/Reg Insulin Hm 15 units SQ HS 05/17/24 05/17/24 History [NovoLIN 70-30 Flexpen] metOLazone [Zaroxolyn] 5 mg PO DAILY 05/17/24 05/17/24 History Allergies Allergy/AdvReac Type Severity Reaction Status Date / Time Penicillins Allergy Rash/Hives Verified 05/17/24 08:02 Physical Exam Vitals: Vital Signs Temp Pulse Resp BP Pulse Ox 05/17/24 09:00 97.6 F 63 20 147/42 98 05/17/24 07:42 96.9 F L 63 20 127/47 98 05/17/24 06:58 72 18 116/93 99 05/17/24 06:05 77 18 187/69 96 05/17/24 04:48 97.6 F 72 18 168/51 98 Intake and Output 05/16/24 05/17/24 05/17/24 22:59 06:59 14:59 Other: Weight 86.183 kg 86.183 kg Results 05/17/24 05:10 05/17/24 05:10 Cardiac Enzymes 05/17/24 05/17/24 Range/Units 05:10 05:10 AST 15 (14-36) U/L Troponin I <0.012 (0.000-0.034) ng/mL Coagulation 05/17/24 Range/Units 05:10 PT 10.5 (10.0-12.5) sec APTT 22.4 (22.0-30.0) sec CBC 05/17/24 Range/Units 05:10 WBC 7.3 (3.8-10.6) k/uL RBC 3.63 L (3.80-5.40) m/uL Hgb 10.2 L (11.4-16.0) gm/dL Hct 32.6 L (34.0-46.0) % Plt Count 266 (150-450) k/uL Comprehensive Metabolic Panel 05/17/24 Range/Units 05:10 Sodium 140 (137-145) mmol/L Potassium 5.3 H (3.5-5.1) mmol/L Chloride 116 H (98-107) mmol/L Carbon Dioxide 18 L (22-30) mmol/L BUN 31 H (7-17) mg/dL Creatinine 1.39 H (0.52-1.04) mg/dL Glucose 217 H (74-99) mg/dL Calcium 9.5 (8.4-10.2) mg/dL AST 15 (14-36) U/L ALT 6 (4-34) U/L Alkaline Phosphatase 135 H (38-126) U/L Total Protein 6.7 (6.3-8.2) g/dL Albumin 3.4 L (3.5-5.0) g/dL Current Medications Generic Name Dose Route Start Last Admin Trade Name Freq PRN Reason Stop Dose Admin Atorvastatin Calcium 40 mg 05/17/24 21:00 Atorvastatin 40 Mg Tab PO HS CLYDE Carvedilol 3.125 mg 05/17/24 08:30 05/17/24 09:03 Carvedilol 3.125 Mg Tab PO 3.125 mg BID-W/MEALS CLYDE Administration Enoxaparin Sodium 30 mg 05/17/24 09:00 05/17/24 09:01 Enoxaparin 30 Mg/0.3 Ml Syringe SQ 30 mg DAILY CLYDE Administration Furosemide 40 mg 05/17/24 09:00 05/17/24 08:17 Furosemide 40 Mg Tab PO Not Given BID CLYDE Insulin Aspart 15 unit 05/17/24 21:00 Insuln Asp Prt/Insulin Aspart 100 Unit/Ml 10 Ml Vial SQ HS CLYDE Levothyroxine Sodium 100 mcg 05/18/24 06:30 Levothyroxine 100 Mcg Tab PO DAILY@0630 CLYDE Metolazone 5 mg 05/17/24 09:00 05/17/24 09:03 Metolazone 5 Mg Tab PO 5 mg DAILY CLYDE Administration Tramadol/Acetaminophen 1 each 05/17/24 06:51 Tramadol-Acetaminop 37.5-325mg 1 Each Tab PO 05/23/24 06:50 ONCE PRN Pain Intake and Output 05/16/24 05/17/24 05/17/24 22:59 06:59 14:59 Other: Weight 86.183 kg 86.183 kg Patient Weight 05/18/24 06:59 Weight 86.183 kg 05/17/24 05:10 05/17/24 05:10
[2024-05-17 17:03] LABS: Glucose,Whole Blood 164 mg/dL (70-110)
[2024-05-17] MEDS: traMADol-ACETAMINOP 37.5-325MG 1 EACH TAB PO PRN ×2 (17:10→21:15)
[2024-05-17] MEDS ORDERED: DEXTROSE 50% SYRINGE 50 ML IVP PRN ×2 (17:18)
--- NOTE | 2024-05-17 17:21 | P.HPIM ---
History of Present Illness H&P Date: 05/17/24 83 year old F with PMH of DM, CHF, Hypothyroid, HTN, HLD presents to the ED after mechanical fall. She denies any LOC or head trauma. She reports increased swelling in her legs. Lives at home alone with daughter near by. Ambulates with the aid of a walker. Denies chest pain, lightheadedness, palpitations. In the ED she underwent extensive evaluation. BP 168/51, HR 72, T 97.6F, RR 18, 98% on RA. CBC, Coag panel, CMP significant for RBC 3.62, Hg 10.2, Hct 32.6, K 5.3, Cl 116, bicarb 18, BUN 21, Cr 1.39, glu 217, alk phos 135. Trop < 0.012. BNP 9490. TSH 3.430. UA trace LE. COVID, RSV, Flu neg. CT head and C spine negative for acute pathology. CT CAP soft tissue contusion anterior lower pelvis. Patient is admitted for further workup and management. Cardiology consulted, Echo ordered, started on Lasix 40 IV BID. General: non toxic, no distress, appears at stated age Derm: warm, dry Head: atraumatic, normocephalic, symmetric Eyes: EOMI, no lid lag, anicteric sclera Mouth: no lip lesion, mucus membranes moist Cardiovascular: S1S2 reg, no murmur Lungs: Decreased BS bilaterally, no rhonchi, no rales , no accessory muscle use Neuro: no focal neuro deficits Ext: Erythema bilateral lower extremities extending to this mid calf. Psych: Alert, oriented, appropriate affect Based on my assessment of this patient, this patient meets a high complexity level of care. Hyperkalemia: Status post 10 units IV insulin and Lasix IV. No EKG changes. Repeat BMP in the AM. Acute kidney injury on CKD: No obstruction seen on CT. Likely medical renal disease. Monitor renal function while on lasix. Diabetes mellitus with hyperglycemia: 70:30 15 units QHS. ISS ACHS. Accuchecks ACHS. Hypoglycemic precautions. Debility and Fall: Fall precautions. PT and OT consult. Normocytic anemia: Likely AOCD from renal disease. No signs of active bleeding. Mild CHF exacerbation: Cardiology consulted. Echo ordered. Lasix 40 mg IV BID. Strict intake and outtake. Daily weights. Hypothyroid: Synthroid 100 mcg PO QD. HTN: Coreg 3.125 mg PO BID. HLD: Lipitor 40 mg PO QHS. CODE STATUS: FULL CODE. DVT Prophylaxis: Heparin SQ GI Prophylaxis: Designated medical POA if patient is not able to make medical decisions for themselves: Alley I have reviewed the following polymer materials consultant notes: ED, Cardiology note. I have reviewed the results of the following tests: As above. I have ordered the following tests: As above. I have discussed the care of this patient with the following independent historian: CATRACHO. I have independently interpreted the following test below: EKG. I have discussed the management of this patient with the following physician: Past Medical History Past Medical History: Heart Failure, COPD, Diabetes Mellitus, GERD/Reflux, Hyperlipidemia, Hypertension, Osteoarthritis (OA), Pneumonia, Skin Disorder, Thyroid Disorder Additional Past Medical History / Comment(s): IDDM type II, neuropathy L hand, bilateral lower leg venostasis/dermatitis/cellulitis/ulcers/edema, FALLS, weakness, arthritis bilateral knees, vertigo, hypothyroid History of Any Multi-Drug Resistant Organisms: None Reported Past Surgical History: Breast Surgery, Cholecystectomy, Tonsillectomy Additional Past Surgical History / Comment(s): Benign mass removed from neck, R breast benign biopsy, R eye laser surgery/pt cannot recall reason. Past Anesthesia/Blood Transfusion Reactions: No Reported Reaction Past Psychological History: No Psychological Hx Reported Additional Psychological History / Comment(s): [Pt recently was at [facility] for rehab and was discharged from there on 07/05/21. She is to establish with Residential home care. Her [facility] and [facility] live nearby and assist pt with getting groceries, housework. Pt states she can no longer get out of her 2 story home d/t stairs at both doors. She lives on the first floor. She gets meals on wheels. She ambulates with a walker. She manages her own medications and sponge bathes and dresses herself.] Smoking Status: Former smoker Past Alcohol Use History: None Reported Additional Past Alcohol Use History / Comment(s): Pt started smoking in 1959 and quit in 1999 Past Drug Use History: None Reported - Past Family History Father Family Medical History: Hypertension, Myocardial Infarction ([place]) Additional Family Medical History / Comment(s): X3 [place], Mother Family Medical History: Cancer Additional Family Medical History / Comment(s): DIES FROM COLON CA Medications and Allergies Home Medications Medication Instructions Recorded Confirmed Type Levothyroxine Sodium 100 mcg PO DAILY 10/02/19 05/17/24 History Atorvastatin Calcium [Lipitor] 40 mg PO HS 04/18/23 05/17/24 History Furosemide [Lasix] 40 mg PO BID 04/18/23 05/17/24 History carvediloL [Coreg] 3.125 mg PO BID 04/18/23 05/17/24 History Insulin NPH Hum/Reg Insulin Hm 15 units SQ HS 05/17/24 05/17/24 History [NovoLIN 70-30 Flexpen] metOLazone [Zaroxolyn] 5 mg PO DAILY 05/17/24 05/17/24 History Allergies Allergy/AdvReac Type Severity Reaction Status Date / Time Penicillins Allergy Rash/Hives Verified 05/17/24 08:02 Physical Exam Vitals: Vital Signs Temp Pulse Pulse Resp BP BP Pulse Ox 05/17/24 16:38 68 16 185/68 05/17/24 15:00 97.6 F 67 16 133/64 97 05/17/24 09:00 97.6 F 63 20 147/42 98 05/17/24 07:42 96.9 F L 63 20 127/47 98 05/17/24 06:58 72 18 116/93 99 05/17/24 06:05 77 18 187/69 96 05/17/24 04:48 97.6 F 72 18 168/51 98 Intake and Output 05/17/24 05/17/24 05/17/24 06:59 14:59 22:59 Intake Total 360 Output Total 550 Balance -190 Intake: Oral 360 Output: Urine 550 Other: Weight 86.183 kg 86.183 kg Results CBC & Chem 7: 05/17/24 05:10 05/17/24 05:10 Labs: Abnormal Lab Results - Last 24 Hours (Table) 05/17/24 05/17/24 05/17/24 Range/Units 05:10 05:10 07:39 RBC 3.63 L (3.80-5.40) m/uL Hgb 10.2 L (11.4-16.0) gm/dL Hct 32.6 L (34.0-46.0) % Potassium 5.3 H (3.5-5.1) mmol/L Chloride 116 H (98-107) mmol/L Carbon Dioxide 18 L (22-30) mmol/L BUN 31 H (7-17) mg/dL Creatinine 1.39 H (0.52-1.04) mg/dL Glucose 217 H (74-99) mg/dL POC Glucose (mg/dL) 113 H (70-110) mg/dL Alkaline Phosphatase 135 H (38-126) U/L Albumin 3.4 L (3.5-5.0) g/dL Urine Protein (Negative) Ur Leukocyte Esterase (Negative) Urine WBC (0-5) /hpf Hyaline Casts (0-2) /lpf 05/17/24 05/17/24 Range/Units 09:01 17:01 RBC (3.80-5.40) m/uL Hgb (11.4-16.0) gm/dL Hct (34.0-46.0) % Potassium (3.5-5.1) mmol/L Chloride (98-107) mmol/L Carbon Dioxide (22-30) mmol/L BUN (7-17) mg/dL Creatinine (0.52-1.04) mg/dL Glucose (74-99) mg/dL POC Glucose (mg/dL) 164 H (70-110) mg/dL Alkaline Phosphatase (38-126) U/L Albumin (3.5-5.0) g/dL Urine Protein 1+ H (Negative) Ur Leukocyte Esterase Trace H (Negative) Urine WBC 6 H (0-5) /hpf Hyaline Casts 3 H (0-2) /lpf Thrombosis Risk Factor Assmnt - Choose All That Apply Any of the Below Risk Factors Present?: Yes Each Factor Represents 1 point: Medical pt on bed rest, Obesity (BMI >25), Swollen legs (current) Each Risk Factor Represents 2 Points: Patient confined to bed Each Risk Factor Represents 3 Points: Age 75 years or older Other congenital or acquired thrombophilia - If yes, enter type in comment: No Thrombosis Risk Factor Assessment Total Risk Factor Score: 8 Thrombosis Risk Factor Assessment Level: High Risk
[2024-05-17 20:09] LABS: Glucose,Whole Blood 206 mg/dL (70-110)
[2024-05-17] MEDS: HEPARIN SODIUM,PORCINE 5,000 UNIT/ML 1 ML VIAL SQ SCH (20:46)
[2024-05-17] MEDS: ATORVASTATIN 40 MG TAB PO SCH (20:46)
[2024-05-17] MEDS: FUROSEMIDE 10 MG/ML 4 ML VIAL IV SCH (20:46)
[2024-05-17] MEDS: INSULN ASP PRT/INSULIN ASPART 100 UNIT/ML 10 ML VIAL SQ SCH (20:46)
[2024-05-18 03:20] LABS: Glucose,Whole Blood 65 mg/dL (70-110)
[2024-05-18 03:58] LABS: Glucose,Whole Blood 111 mg/dL (70-110)
[2024-05-18 05:51] LABS: Glucose,Whole Blood 100 mg/dL (70-110)
[2024-05-18] MEDS: LEVOTHYROXINE 100 MCG TAB PO SCH (06:09)
[2024-05-18] MEDS: ASPIRIN 81 MG PO SCH (07:45)
[2024-05-18 09:11] LABS: BUN/Creat Ratio 20.38 Ratio (12.00-20.00); Blood Urea Nitrogen 32.6 mg/dL (9.0-27.0); Calcium 9.1 mg/dL (8.7-10.3); Carbon Dioxide 19.6 mmol/L (21.6-31.8); Chloride 112 mmol/L (96-109); Glucose 91 mg/dL (70-110); Potassium 5.1 mmol/L (3.5-5.5); Sodium 142 mmol/L (135-145)
--- NOTE | 2024-05-18 11:07 | P.PN ---
Subjective HISTORY OF PRESENT ILLNESS: This is a 83-year-old female with a past medical history significant for hypertension, hyperlipidemia, diabetes, and congestive heart failure. Patient does not follow with kier pleater. We have been asked to see the patient in consultation for congestive heart failure. Patient examined at the bedside. Patient presented to the hospital after sustaining a fall at home. Patient denies losing consciousness. She states when she fell she was unable to get up. The patient denies having any chest pain or pressure. She does report having shortness of breath with exertion which is somewhat chronic for her. The pat ient was found to be in acute CHF and was started on IV diuretics. DIAGNOSTICS: - EKG reveals sinus mechanism with no signs of acute ischemia - Laboratory data: WBC 7.3. Hemoglobin 10.2. Platelet count 266. Sodium 140. Potassium 5.3. BUN 31. Creatinine 1.39. Troponin negative x 1. proBNP 9490. - Current home cardiac medications include Lipitor 40 mg at night, Lasix 40 mg twice a day, carvedilol 3.125 mg twice a day, Zaroxolyn 5 mg daily - Most recent echocardiogram obtained in April 2023 revealing ejection fraction 55 to 60%, mild pulmonary hypertension, trace to mild MR, and mild TR 05/18/2024 Patient examined this morning the bedside. Patient currently denies any chest pain or pressure. She denies any shortness of breath. Her lower extremity edema is improving. Creatinine today increased to 1.6. PHYSICAL EXAM: VITAL SIGNS: Reviewed. GENERAL: Well-developed in no acute distress. HEENT: Head is normocephalic. Pupils are equal, round. Sclerae anicteric. Mucous membranes of the mouth are moist. Neck supple. No JVD or thyromegaly LUNGS: Respirations even and unlabored. Lungs essentially clear to auscultation bilaterally, diminished. HEART: Regular rate and rhythm. S1 and S2 heard. Systolic murmur noted ABDOMEN: Soft. Nondistended. Nontender. EXTREMITIES: Normal range of motion. No clubbing or cyanosis. Peripheral pulses intact. Bilateral lower extremity edema with chronic stasis changes noted, improved NEUROLOGIC: Awake and alert. Oriented x 3. ASSESSMENT: Status post mechanical fall Acute on chronic heart failure with preserved EF, 55 to 60% in 04/2023 Chronic kidney disease Hypertension Hyperlipidemia Mild pulmonary hypertension Right internal carotid artery stenosis, 50 to 70% Diabetes Decubitus ulcer PLAN: 2D echo pending. Await results. Agree with discontinuation of IV Lasix due to increased creatinine. Patient started on oral Lasix per internal medicine Continue additional cardiac medications Further recommendations pending patient course. Nurse practitioner note has been reviewed by physician. Signing provider agrees with the documented findings, assessment, and plan of care documented by MORTUARY OPERATIONS MANAGER as a scribe. Objective - Vital Signs Vital signs: Vital Signs Temp 97.6 F 05/18/24 07:00 Pulse 61 05/18/24 07:00 Resp 16 05/18/24 07:00 BP 177/74 05/18/24 07:00 Pulse Ox 96 05/18/24 07:00 FiO2 Intake & Output 05/17/24 05/18/24 05/18/24 18:59 06:59 18:59 Intake Total 360 118 Output Total 850 600 400 Balance -490 -600 -282 Weight 86.183 kg 93.5 kg Intake: Oral 360 118 Output: Urine 850 600 400 Other: Voiding Method External Catheter External Catheter - Labs CBC & Chem 7: 05/17/24 05:10 05/18/24 04:53 Labs: Abnormal Lab Results - Last 24 Hours (Table) 05/17/24 05/17/24 05/18/24 Range/Units 17:01 20:08 03:18 Chloride (96-109) mmol/L Carbon Dioxide (21.6-31.8) mmol/L BUN (9.0-27.0) mg/dL Creatinine (0.6-1.5) mg/dL Est GFR (CKD-EPI) (>=60) BUN/Creatinine Ratio (12.00-20.00) Ratio POC Glucose (mg/dL) 164 H 206 H 65 L (70-110) mg/dL 05/18/24 05/18/24 Range/Units 03:57 04:53 Chloride 112 H (96-109) mmol/L Carbon Dioxide 19.6 L (21.6-31.8) mmol/L BUN 32.6 H (9.0-27.0) mg/dL Creatinine 1.6 H (0.6-1.5) mg/dL Est GFR (CKD-EPI) 32 L (>=60) BUN/Creatinine Ratio 20.38 H (12.00-20.00) Ratio POC Glucose (mg/dL) 111 H (70-110) mg/dL
[2024-05-18 12:00] LABS: Glucose,Whole Blood 131 mg/dL (70-110)
--- NOTE | 2024-05-18 12:24 | CA ---
Transthoracic Echo Report Name: Jane Malone Age: 83 Gender: F : 1940 Exam Date: 05/18/2024 08:53 Exam Location: [place] [facility] Ht (in): 63 Wt (lb): 190 Ordering Physician: Celia Will Attending/Referring Phys: [id number], [facility] Rn Cleo Schafer RDCS Procedure CPT: Indications: LV function, heart failure Cardiac Hx: Technical Quality: Technically difficult study Contrast 1: Total Dose (mL): Contrast 2: Total Dose (mL): MEASUREMENTS (Male / Female) Normal Values 2D ECHO LV Diastolic Diameter PLAX 2.9 cm 4.2 - 5.9 / 3.9 - 5.3 cm LV Systolic Diameter PLAX 2.0 cm IVS Diastolic Thickness 1.3 cm 0.6 - 1.0 / 0.6 - 0.9 cm LVPW Diastolic Thickness 1.4 cm 0.6 - 1.0 / 0.6 - 0.9 cm LV Relative Wall Thickness 0.9 RV Internal Dim ED PLAX 3.5 cm M-MODE Aortic Root Diameter MM 2.7 cm LA Systolic Diameter MM 4.6 cm LA Ao Ratio MM 1.8 FINDINGS Left Ventricle Moderately increased left ventricular wall thickness. Left ventricular cavity size normal. Normal left ventricular systolic function with no obvious regional wall motion abnormalities. Left ventricular ejection fraction is estimated at 55-60 %. Right Ventricle Mild right ventricular dilatation. Right ventricular systolic pressure within normal limits. Right Atrium Normal right atrial size. Left Atrium Normal left atrial size. Mitral Valve Structurally normal mitral valve. Mild mitral annular calcification. Mild mitral regurgitation. Mitral valve thickened. Aortic Valve No aortic valve stenosis or regurgitation. Tricuspid Valve Structurally normal tricuspid valve. Mild tricuspid regurgitation. Pulmonic Valve Structurally normal pulmonic valve. Pericardium No pericardial effusion. Aorta Normal size aortic root and proximal ascending aorta. CONCLUSIONS Normal LV function Mild mitral regurgitation Previewed by: Dr. Jarrett Vaughn MD (Electronically Signed) Final Date: 18 May 2024 12:23
[2024-05-18] MEDS: FUROSEMIDE 40 MG TAB PO SCH (14:59)
[2024-05-18 17:06] LABS: Glucose,Whole Blood 144 mg/dL (70-110)
--- NOTE | 2024-05-18 17:11 | P.PN ---
Subjective Progress Note Date: 05/18/24 83 year old F with PMH of DM, CHF, Hypothyroid, HTN, HLD presents to the ED after mechanical fall. She denies any LOC or head trauma. She reports increased swelling in her legs. Lives at home alone with daughter near by. Ambulates with the aid of a walker. Denies chest pain, lightheadedness, palpitations. In the ED she underwent extensive evaluation. BP 168/51, HR 72, T 97.6F, RR 18, 98% on RA. CBC, Coag panel, CMP significant for RBC 3.62, Hg 10.2, Hct 32.6, K 5.3, Cl 116, bicarb 18, BUN 21, Cr 1.39, glu 217, alk phos 135. Trop < 0.012. BNP 9490. TSH 3.430. UA trace LE. COVID, RSV, Flu neg. CT head and C spine negative for acute pathology. CT CAP soft tissue contusion anterior lower pelvis. Patient is admitted for further workup and management. Cardiology consulted, Echo ordered, started on Lasix 40 IV BID. 05/18 Patient was seen and examined. No acute events overnight. Pain well controlled. Discussed with Celia PATTERN CHANGER, no further recommendations, cleared for discharge. BNP Cl 112, bicarb 19.6, BUN 32.6, Cr 1.6. General: non toxic, no distress, appears at stated age Derm: warm, dry Head: atraumatic, normocephalic, symmetric Eyes: EOMI, no lid lag, anicteric sclera Mouth: no lip lesion, mucus membranes moist Cardiovascular: S1S2 reg, no murmur Lungs: Decreased BS bilaterally, no rhonchi, no rales , no accessory muscle use Neuro: no focal neuro deficits Ext: Erythema bilateral lower extremities extending to this mid calf. Psych: Alert, oriented, appropriate affect Based on my assessment of this patient, this patient meets a high complexity level of care. Acute kidney injury on CKD: No obstruction seen on CT. Likely medical renal disease. Repeat BMP in the AM. Diabetes mellitus with hyperglycemia: 70:30 15 units QHS. ISS ACHS. Accuchecks ACHS. Hypoglycemic precautions. Debility and Fall: Fall precautions. PT and OT consult. Normocytic anemia: Likely AOCD from renal disease. No signs of active bleeding. Mild CHF exacerbation: Cardiology consulted. Echo ordered. Lasix 40 mg IV BID. Strict intake and outtake. Daily weights. Hypothyroid: Synthroid 100 mcg PO QD. HTN: Coreg 3.125 mg PO BID. HLD: Lipitor 40 mg PO QHS. Gluteal wound that was present on admission: Consult Wound care. Resolved: HyperK CODE STATUS: FULL CODE. DVT Prophylaxis: Heparin SQ GI Prophylaxis: Designated medical POA if patient is not able to make medical decisions for themselves: Alley I have reviewed the following regional sales consultant notes: Cardiology note. I have reviewed the results of the following tests: BMP. I have ordered the following tests: BMP. I have discussed the care of this patient with the following independent historian: Case management, plans for PT OT eval and SNF. I have independently interpreted the following test below: I have discussed the management of this patient with the following physician: Objective - Vital Signs Vital signs: Vital Signs Temp 97.5 F L 05/18/24 14:13 Pulse 56 L 05/18/24 14:13 Resp 17 05/18/24 14:13 BP 149/64 05/18/24 14:13 Pulse Ox 95 05/18/24 14:13 FiO2 Intake & Output 05/17/24 05/18/24 05/18/24 18:59 06:59 18:59 Intake Total 360 776 Output Total 850 600 400 Balance -490 -600 376 Weight 86.183 kg 93.5 kg Intake: Oral 360 776 Output: Urine 850 600 400 Other: Voiding Method External Catheter External Catheter # Voids 1 # Bowel Movements 1 - Labs CBC & Chem 7: 05/17/24 05:10 05/18/24 04:53 Labs: Abnormal Lab Results - Last 24 Hours (Table) 05/17/24 05/18/24 05/18/24 Range/Units 20:08 03:18 03:57 Chloride (96-109) mmol/L Carbon Dioxide (21.6-31.8) mmol/L BUN (9.0-27.0) mg/dL Creatinine (0.6-1.5) mg/dL Est GFR (CKD-EPI) (>=60) BUN/Creatinine Ratio (12.00-20.00) Ratio POC Glucose (mg/dL) 206 H 65 L 111 H (70-110) mg/dL 11/05/24 11/05/24 11/05/24 Range/Units 04:53 11:58 17:05 Chloride 112 H (96-109) mmol/L Carbon Dioxide 19.6 L (21.6-31.8) mmol/L BUN 32.6 H (9.0-27.0) mg/dL Creatinine 1.6 H (0.6-1.5) mg/dL Est GFR (CKD-EPI) 32 L (>=60) BUN/Creatinine Ratio 20.38 H (12.00-20.00) Ratio POC Glucose (mg/dL) 131 H 144 H (70-110) mg/dL
[2024-05-18 20:17] LABS: Glucose,Whole Blood 180 mg/dL (70-110)
[2024-05-19 02:42] LABS: Glucose,Whole Blood 85 mg/dL (70-110)
[2024-05-19 05:27] LABS: African American GFR (CKD) 30 (>60 ml/min/1.73 sqM); Anion Gap 3 mmol/L; Blood Urea Nitrogen 35 mg/dL (7-17); Calcium 8.9 mg/dL (8.4-10.2); Carbon Dioxide 24 mmol/L (22-30); Chloride 110 mmol/L (98-107); Glucose 84 mg/dL (74-99); Non-African American GFR(CKD) 26 (>60 ml/min/1.73 sqM); Potassium 4.8 mmol/L (3.5-5.1); Sodium 137 mmol/L (137-145)
[2024-05-19 06:09] LABS: Glucose,Whole Blood 89 mg/dL (70-110)
--- NOTE | 2024-05-19 10:54 | P.CONS ---
History of Present Illness - Reason for Consult Consult date: 05/19/24 wound care - History of Present Illness This is an 83-year-old patient being seen for a nonhealing ulceration to the sacrum and multiple nonhealing ulcerations to bilateral lower extremities. The sacral ulceration measures approximately 2 x 0.4 x 0.2 cm with granulation seen in the wound bed wound edges are attached to the wound base there is no tunneling or undermining. Patient has multiple open ulcerations to bilateral lower extremities that are limited to skin breakdown with slough and nonviable tissue present. Review Of Systems: Constitutional: No fever, no chills, no night sweats. No weight change. No weakness, fatigue or lethargy. No daytime sleepiness. Integumentary:reports wounds, no lesions. No rash or pruritus. No unusual bruising. No change in hair or nails. Physical exam: General Appearance: Alert, cooperative, no distress, appears stated age. Skin: See HPI all other Skin color, texture, tugor normal, no rashes or lesions. Neurologic: Alert oriented x3 Assessment: 1. Stage II pressure ulcer sacrum 2. Nonhealing ulceration multiple sites bilateral lower extremities limited to skin breakdown Plan: 1.Sacrum: Apply honey gel and bordered foam. Bilateral lower extremities apply honey gel dry gauze rolled gauze and secure with paper tape. Change Friday. Thank you for the consultation any questions please contact the wound care center DNP note has been reviewed and discussed with Dr. Barone and the impression and plan of care has been directed as dictated. Past Medical History Past Medical History: Heart Failure, COPD, Diabetes Mellitus, GERD/Reflux, Hyperlipidemia, Hypertension, Osteoarthritis (OA), Pneumonia, Skin Disorder, Thyroid Disorder Additional Past Medical History / Comment(s): IDDM type II, neuropathy L hand, bilateral lower leg venostasis/dermatitis/cellulitis/ulcers/edema, FALLS, weakness, arthritis bilateral knees, vertigo, hypothyroid History of Any Multi-Drug Resistant Organisms: None Reported Past Surgical History: Breast Surgery, Cholecystectomy, Tonsillectomy Additional Past Surgical History / Comment(s): Benign mass removed from neck, R breast benign biopsy, R eye laser surgery/pt cannot recall reason. Past Anesthesia/Blood Transfusion Reactions: No Reported Reaction Past Psychological History: No Psychological Hx Reported Additional Psychological History / Comment(s): [Pt recently was at [facility] for rehab and was discharged from there on 07/05/21. She is to establish with [facility]idential home care. [facility] and assist pt with getting groceries, housework. Pt states she can no longer get out of her 2 story home d/t stairs at both doors. She lives on the first floor. She gets meals on wheels. She ambulates with a walker. She manages her own medications and sponge bathes and dresses herself.] Smoking Status: Former smoker Past Alcohol Use History: None Reported Additional Past Alcohol Use History / Comment(s): Pt started smoking in 1959 and quit in 1999 Past Drug Use History: None Reported - Past Family History Father Family Medical History: Hypertension, Myocardial Infarction (CO) Additional Family Medical History / Comment(s): X3 [place], Mother Family Medical History: Cancer Additional Family Medical History / Comment(s): DIES FROM COLON [place] Medications and Allergies Home Medications Medication Instructions Recorded Confirmed Type Levothyroxine Sodium 100 mcg PO DAILY 10/02/19 05/17/24 History Atorvastatin Calcium [Lipitor] 40 mg PO HS 04/18/23 05/17/24 History Furosemide [Lasix] 40 mg PO BID 04/18/23 05/17/24 History carvediloL [Coreg] 3.125 mg PO BID 04/18/23 05/17/24 History Insulin NPH Hum/Reg Insulin Hm 15 units SQ HS 05/17/24 05/17/24 History [NovoLIN 70-30 Flexpen] metOLazone [Zaroxolyn] 5 mg PO DAILY 05/17/24 05/17/24 History Allergies Allergy/AdvReac Type Severity Reaction Status Date / Time Penicillins Allergy Rash/Hives Verified 05/17/24 08:02 Physical Exam Vitals: Vital Signs Temp Pulse Resp BP BP Pulse Ox 05/19/24 10:20 97.7 F 05/19/24 07:00 97.3 F L 59 L 16 156/71 93 L 05/19/24 02:39 97.4 F L 60 18 170/64 94 L 05/18/24 19:11 97.7 F 63 16 183/65 94 L 05/18/24 14:13 97.5 F L 56 L 17 149/64 95 Intake and Output 05/18/24 05/19/24 05/19/24 22:59 06:59 14:59 Intake Total 118 Output Total 400 1150 Balance -282 -1150 Intake: Oral 118 Output: Urine 400 1150 Other: Voiding Method External Catheter Weight 89.5 kg Results CBC & Chem 7: 05/17/24 05:10 05/19/24 04:35 Labs: Abnormal Lab Results - Last 24 Hours (Table) 05/18/24 05/18/24 05/18/24 Range/Units 11:58 17:05 20:15 Chloride (98-107) mmol/L BUN (7-17) mg/dL Creatinine (0.52-1.04) mg/dL POC Glucose (mg/dL) 131 H 144 H 180 H (70-110) mg/dL 05/19/24 Range/Units 04:35 Chloride 110 H (98-107) mmol/L BUN 35 H (7-17) mg/dL Creatinine 1.80 H (0.52-1.04) mg/dL POC Glucose (mg/dL) (70-110) mg/dL Assessment and Plan (1) Stage 2 skin ulcer of sacral region Current Visit: Yes Status: Acute Code(s): L98.429 - NON-PRESSURE CHRONIC ULCER OF BACK WITH UNSPECIFIED SEVERITY SNOMED Code(s): 13421247 (2) Non-pressure ulcer of left lower extremity, limited to breakdown of skin Current Visit: Yes Status: Acute Code(s): L97.921 - NON-PRS [facility] UL UNSP PRT OF L LOW LEG LIMITED TO BRKDWN SKIN SNOMED Code(s): 75681745 (3) Non-pressure ulcer of right lower extremity, limited to breakdown of skin Current Visit: Yes Status: Acute Code(s): L97.911 - NON-PRS [facility] UL UNSP PRT OF R LOW LEG LIMITED TO BRKDWN SKIN SNOMED Code(s): 48285081
[2024-05-19] MEDS: HYDROcodone/APAP 5-325MG 1 EACH TAB PO PRN (10:55)
--- NOTE | 2024-05-19 12:18 | P.PN ---
Subjective HISTORY OF PRESENT ILLNESS: This is a 83-year-old female with a past medical history significant for hypertension, hyperlipidemia, diabetes, and congestive heart failure. Patient does not follow with network liaison. We have been asked to see the patient in consultation for congestive heart failure. Patient examined at the bedside. Patient presented to the hospital after sustaining a fall at home. Patient denies losing consciousness. She states when she fell she was unable to get up. The patient denies having any chest pain or pressure. She does report having shortness of breath with exertion which is somewhat chronic for her. The yessi iecarlos was found to be in acute CHF and was started on IV diuretics. DIAGNOSTICS: - EKG reveals sinus mechanism with no signs of acute ischemia - Laboratory data: WBC 7.3. Hemoglobin 10.2. Platelet count 266. Sodium 140. Potassium 5.3. BUN 31. Creatinine 1.39. Troponin negative x 1. proBNP 9490. - Current home cardiac medications include Lipitor 40 mg at night, Lasix 40 mg twice a day, carvedilol 3.125 mg twice a day, Zaroxolyn 5 mg daily - Most recent echocardiogram obtained in April 2023 revealing ejection fraction 55 to 60%, mild pulmonary hypertension, trace to mild MR, and mild TR 05/18/2024 Patient examined this morning the bedside. Patient currently denies any chest pain or pressure. She denies any shortness of breath. Her lower extremity edema is improving. Creatinine today increased to 1.6. 05/19/2024 Patient examined this morning at the bedside. Patient denies chest pain or pressure. She denies shortness of breath. Patient's creatinine increased from 1.6-1.8 today. Echocardiogram completed revealing ejection fraction 55 to 60%, mild MR, mild TR. PHYSICAL EXAM: VITAL SIGNS: Reviewed. GENERAL: Well-developed in no acute distress. HEENT: Head is normocephalic. Pupils are equal, round. Sclerae anicteric. Mucous membranes of the mouth are moist. Neck supple. No JVD or thyromegaly LUNGS: Respirations even and unlabored. Lungs essentially clear to auscultation bilaterally, diminished. HEART: Regular rate and rhythm. S1 and S2 heard. Systolic murmur noted ABDOMEN: Soft. Nondistended. Nontender. EXTREMITIES: Normal range of motion. No clubbing or cyanosis. Peripheral pulses intact. Bilateral lower extremity edema with chronic stasis changes noted, improved NEUROLOGIC: Awake and alert. Oriented x 3. ASSESSMENT: Status post mechanical fall Acute on chronic heart failure with preserved EF, 55 to 60% Acute on chronic kidney disease Hypertension Hyperlipidemia Mild pulmonary hypertension Right internal carotid artery stenosis, 50 to 70% Diabetes Decubitus ulcer PLAN: Discontinue Zaroxolyn. Do not resume at discharge. Hold Lasix for today. Resume oral Lasix tomorrow 40 mg twice a day Continue additional cardiac medications Recommend outpatient BMP in 3 days Stable for discharge to ECF today from a cardiac standpoint Further recommendations pending patient course. Nurse practitioner note has been reviewed by physician. Signing provider agrees with the documented findings, assessment, and plan of care documented by HOSE SEAMER as a scribe. Objective - Vital Signs Vital signs: Vital Signs Temp 97.7 F 05/19/24 10:20 Pulse 59 L 05/19/24 07:00 Resp 16 05/19/24 08:00 BP 156/71 05/19/24 07:00 Pulse Ox 93 L 05/19/24 07:00 FiO2 Intake & Output 05/18/24 05/19/24 05/19/24 18:59 06:59 18:59 Intake Total 894 Output Total 800 1150 Balance 94 -1150 Weight 89.5 kg Intake: Oral 894 Output: Urine 800 1150 Other: Voiding Method External Catheter External Catheter External Catheter # Voids 1 # Bowel Movements 1 - Labs CBC & Chem 7: 05/17/24 05:10 05/19/24 04:35 Labs: Abnormal Lab Results - Last 24 Hours (Table) 05/18/24 05/18/24 05/19/24 Range/Units 17:05 20:15 04:35 Chloride 110 H (98-107) mmol/L BUN 35 H (7-17) mg/dL Creatinine 1.80 H (0.52-1.04) mg/dL POC Glucose (mg/dL) 144 H 180 H (70-110) mg/dL
[2024-05-19 12:28] LABS: Glucose,Whole Blood 126 mg/dL (70-110)
--- NOTE | 2024-05-19 12:47 | P.PN ---
Subjective Progress Note Date: 05/19/24 83 year old F with PMH of DM, CHF, Hypothyroid, HTN, HLD presents to the ED after mechanical fall. She denies any LOC or head trauma. She reports increased swelling in her legs. Lives at home alone with daughter near by. Ambulates with the aid of a walker. Denies chest pain, lightheadedness, palpitations. In the ED she underwent extensive evaluation. BP 168/51, HR 72, T 97.6F, RR 18, 98% on RA. CBC, Coag panel, CMP significant for RBC 3.62, Hg 10.2, Hct 32.6, K 5.3, Cl 116, bicarb 18, BUN 21, Cr 1.39, glu 217, alk phos 135. Trop < 0.012. BNP 9490. TSH 3.430. UA trace LE. COVID, RSV, Flu neg. CT head and C spine negative for acute pathology. CT CAP soft tissue contusion anterior lower pelvis. Patient is admitted for further workup and management. Cardiology consulted, Echo ordered, started on Lasix 40 IV BID. 05/19 Patient was seen and examined. No acute events overnight. Plans for SNF with insurance auth. BMP Cl 110, BUN 35, Cr 1.8. Echo EF 55-60% mild MR. General: non toxic, no distress, appears at stated age Derm: warm, dry Head: atraumatic, normocephalic, symmetric Eyes: EOMI, no lid lag, anicteric sclera Mouth: no lip lesion, mucus membranes moist Cardiovascular: S1S2 reg, no murmur Lungs: Decreased BS bilaterally, no rhonchi, no rales , no accessory muscle use Neuro: no focal neuro deficits Ext: Erythema bilateral lower extremities extending to this mid calf. Psych: Alert, oriented, appropriate affect Based on my assessment of this patient, this patient meets a high complexity level of care. Acute kidney injury on CKD: No obstruction seen on CT. Likely medical renal dis ease. Cardiology discontinued Metolazone and held Lasix for today. Normal EF on Echo. Diabetes mellitus with hyperglycemia: 70:30 15 units QHS. ISS ACHS. Accuchecks ACHS. Hypoglycemic precautions. Debility and Fall: Fall precautions. PT and OT consult. Case management on board for SNF. Normocytic anemia: Likely AOCD from renal disease. No signs of active bleeding. Hypothyroid: Synthroid 100 mcg PO QD. HTN: Coreg 3.125 mg PO BID. HLD: Lipitor 40 mg PO QHS. Stage II pressure ulcer sacrum: Present on admission. Consult Wound care. Resolved: HyperK CODE STATUS: FULL CODE. DVT Prophylaxis: Heparin SQ GI Prophylaxis: Designated medical POA if patient is not able to make medical decisions for t hemselves: Alley Plans for discharge to SNF when insurance auth obtained. Repeat BMP in 3 days. I have reviewed the following cyber security consultant notes: Cardiology I have reviewed the results of the following tests: BMP. I have ordered the following tests: BMP. I have discussed the care of this patient with the following independent historian: I have independently interpreted the following test below: I have discussed the management of this patient with the following physician: Objective - Vital Signs Vital signs: Vital Signs Temp 97.3 F L 05/19/24 07:00 Pulse 59 L 05/19/24 07:00 Resp 16 05/19/24 07:00 BP 156/71 05/19/24 07:00 Pulse Ox 93 L 05/19/24 07:00 FiO2 Intake & Output 05/18/24 05/19/24 05/19/24 18:59 06:59 18:59 Intake Total 894 Output Total 800 1150 Balance 94 -1150 Weight 89.5 kg Intake: Oral 894 Output: Urine 800 1150 Other: Voiding Method External Catheter External Catheter # Voids 1 # Bowel Movements 1 - Labs CBC & Chem 7: 05/17/24 05:10 05/19/24 04:35 Labs: Abnormal Lab Results - Last 24 Hours (Table) 05/18/24 05/18/24 05/18/24 Range/Units 04:53 11:58 17:05 Chloride 112 H (96-109) mmol/L Carbon Dioxide 19.6 L (21.6-31.8) mmol/L BUN 32.6 H (9.0-27.0) mg/dL Creatinine 1.6 H (0.6-1.5) mg/dL Est GFR (CKD-EPI) 32 L (>=60) BUN/Creatinine Ratio 20.38 H (12.00-20.00) Ratio POC Glucose (mg/dL) 131 H 144 H (70-110) mg/dL 11/05/24 11/06/24 Range/Units 20:15 04:35 Chloride 110 H (96-109) mmol/L Carbon Dioxide (21.6-31.8) mmol/L BUN 35 H (9.0-27.0) mg/dL Creatinine 1.80 H (0.6-1.5) mg/dL Est GFR (CKD-EPI) (>=60) BUN/Creatinine Ratio (12.00-20.00) Ratio POC Glucose (mg/dL) 180 H (70-110) mg/dL
[2024-05-19 15:58] VITALS: BMI 34.9
[2024-05-19 17:21] LABS: Glucose,Whole Blood 174 mg/dL (70-110)
[2024-05-19 19:51] LABS: Glucose,Whole Blood 224 mg/dL (70-110)
[2024-05-20 02:28] LABS: Glucose,Whole Blood 84 mg/dL (70-110)
[2024-05-20 05:46] LABS: Glucose,Whole Blood 88 mg/dL (70-110)
[2024-05-20 07:00] VITALS: RESP 18
[2024-05-20] MEDS: FUROSEMIDE 40 MG TAB PO SCH (08:41)
[2024-05-20 09:27] LABS: African American GFR (CKD) 36 (>60 ml/min/1.73 sqM); Anion Gap 8 mmol/L; Blood Urea Nitrogen 40 mg/dL (7-17); Calcium 8.9 mg/dL (8.4-10.2); Carbon Dioxide 22 mmol/L (22-30); Chloride 108 mmol/L (98-107); Glucose 118 mg/dL (74-99); Non-African American GFR(CKD) 31 (>60 ml/min/1.73 sqM); Potassium 5.1 mmol/L (3.5-5.1); Sodium 138 mmol/L (137-145)
[2024-05-20 11:58] LABS: Glucose,Whole Blood 125 mg/dL (70-110)
--- NOTE | 2024-05-20 12:36 | P.PN ---
Subjective HISTORY OF PRESENT ILLNESS: This is a 83-year-old female with a past medical history significant for hypertension, hyperlipidemia, diabetes, and congestive heart failure. Patient does not follow with inspector and clipper. We have been asked to see the patient in consultation for congestive heart failure. Patient examined at the bedside. Patient presented to the hospital after sustaining a fall at home. Patient denies losing consciousness. She states when she fell she was unable to get up. The patient denies having any chest pain or pressure. She does report having shortness of breath with exertion which is somewhat chronic for her. The pat iecarlos was found to be in acute CHF and was started on IV diuretics. DIAGNOSTICS: - EKG reveals sinus mechanism with no signs of acute ischemia - Laboratory data: WBC 7.3. Hemoglobin 10.2. Platelet count 266. Sodium 140. Potassium 5.3. BUN 31. Creatinine 1.39. Troponin negative x 1. proBNP 9490. - Current home cardiac medications include Lipitor 40 mg at night, Lasix 40 mg twice a day, carvedilol 3.125 mg twice a day, Zaroxolyn 5 mg daily - Most recent echocardiogram obtained in April 2023 revealing ejection fraction 55 to 60%, mild pulmonary hypertension, trace to mild MR, and mild TR 05/18/2024 Patient examined this morning the bedside. Patient currently denies any chest pain or pressure. She denies any shortness of breath. Her lower extremity edema is improving. Creatinine today increased to 1.6. 05/19/2024 Patient examined this morning at the bedside. Patient denies chest pain or pressure. She denies shortness of breath. Patient's creatinine increased from 1.6-1.8 today. Echocardiogram completed revealing ejection fraction 55 to 60%, mild MR, mild TR. 05/20/2024 Patient examined this morning at the bedside. Currently denies chest pain or pressure. She denies shortness of breath. She remains on oral diuretics. Creatinine today 1.55. PHYSICAL EXAM: VITAL SIGNS: Reviewed. GENERAL: Well-developed in no acute distress. HEENT: Head is normocephalic. Pupils are equal, round. Sclerae anicteric. Mucous membranes of the mouth are moist. Neck supple. No JVD or thyromegaly LUNGS: Respirations even and unlabored. Lungs essentially clear to auscultation bilaterally, diminished. HEART: Regular rate and rhythm. S1 and S2 heard. Systolic murmur noted ABDOMEN: Soft. Nondistended. Nontender. EXTREMITIES: Normal range of motion. No clubbing or cyanosis. Peripheral pulses intact. Bilateral lower extremity edema with chronic stasis changes noted, improved NEUROLOGIC: Awake and alert. Oriented x 3. ASSESSMENT: Status post mechanical fall Acute on chronic heart failure with preserved EF, 55 to 60% Acute on chronic kidney disease Hypertension Hyperlipidemia Mild pulmonary hypertension Right internal carotid artery stenosis, 50 to 70% Diabetes Decubitus ulcer PLAN: Discontinue Zaroxolyn. Do not resume at discharge. Continue oral Lasix Continue additional cardiac medications Recommend outpatient BMP in 3 days Stable for discharge to ECF today from a cardiac standpoint We will sign off. Please reconsult if needed Nurse practitioner note has been reviewed by physician. Signing provider agrees with the documented findings, assessment, and plan of care documented by NUCLEAR UNIT OPERATOR as a scribe. Objective - Vital Signs Vital signs: Vital Signs Temp 98.1 F 05/20/24 06:58 Pulse 100 05/20/24 10:12 Resp 18 05/20/24 10:12 BP 146/73 05/20/24 06:58 Pulse Ox 92 L 05/20/24 02:00 FiO2 Intake & Output 05/19/24 05/20/24 05/20/24 18:59 06:59 18:59 Intake Total 420 118 Output Total 1100 150 Balance -680 -32 Weight 89.5 kg 90 kg Intake: Oral 420 118 Output: Urine 1100 150 Other: Voiding Method External Catheter External Catheter External Catheter - Labs CBC & Chem 7: 05/17/24 05:10 05/20/24 08:35 Labs: Abnormal Lab Results - Last 24 Hours (Table) 05/19/24 05/19/24 05/20/24 Range/Units 17:20 19:50 08:35 Chloride 108 H (98-107) mmol/L BUN 40 H (7-17) mg/dL Creatinine 1.55 H (0.52-1.04) mg/dL Glucose 118 H (74-99) mg/dL POC Glucose (mg/dL) 174 H 224 H (70-110) mg/dL 05/20/24 Range/Units 11:57 Chloride (98-107) mmol/L BUN (7-17) mg/dL Creatinine (0.52-1.04) mg/dL Glucose (74-99) mg/dL POC Glucose (mg/dL) 125 H (70-110) mg/dL
[2024-05-20 13:12] VITALS: BP 178/73; PULSE 67; TEMP 99.5
--- NOTE | 2024-05-20 14:18 | P.DS ---
Providers Date of admission: 05/17/24 07:23 Expected date of discharge: 05/20/24 Attending physician: Dennise Shankar MD Consults: 05/17/24 07:23 Consult Physician Routine Consulting Provider: Sean Vasques Consult Reason/Comments: CHF Do you want consulting provider notified?: Yes, Notify in am Primary care physician: Stated None Hospital Course: 83 year old F with PMH of DM, CHF, Hypothyroid, HTN, HLD presents to the ED after mechanical fall. She denies any LOC or head trauma. She reports increased swelling in her legs. Lives at home alone with daughter near by. Ambulates with the aid of a walker. Denies chest pain, lightheadedness, palpitations. In the ED she underwent extensive evaluation. BP 168/51, HR 72, T 97.6F, RR 18, 98% on RA. CBC, Coag panel, CMP significant for RBC 3.62, Hg 10.2, Hct 32.6, K 5.3, Cl 116, bicarb 18, BUN 21, Cr 1.39, glu 217, alk phos 135. Trop < 0.012. BNP 9490. TSH 3.430. UA trace LE. COVID, RSV, Flu neg. CT head and C spine negative for acute pathology. CT CAP soft tissue contusion anterior lower pelvis. Patient is admitted for further workup and management. Cardiology consulted, Echo ordered, started on Lasix 40 IV BID. 05/19 Patient was seen and examined. No acute events overnight. Plans for SNF with insurance auth. BMP Cl 110, BUN 35, Cr 1.8. Echo EF 55-60% mild MR. 05/20 Patient was seen and examined. No acute events overnight. Plans for SNF today. BMP Cl 108, BUN 40, Cr 1.55, glu 118. Plans for SNF today. Cardiology recommends stopping Metolazone. Discharge Plans: Discontinue Metolazone. Repeat BMP in 3 days to follow up with PCP. Drexel PRN prescribed for pain. General: non toxic, no distress, appears at stated age Derm: warm, dry Head: atraumatic, normocephalic, symmetric Eyes: EOMI, no lid lag, anicteric sclera Mouth: no lip lesion, mucus membranes moist Cardiovascular: S1S2 reg, no murmur Lungs: Decreased BS bilaterally, no rhonchi, no rales , no accessory muscle use Neuro: no focal neuro deficits Ext: Erythema bilateral lower extremities extending to this mid calf. Psych: Alert, oriented, appropriate affect Discharge Diagnosis: Acute kidney injury on CKD Diabetes mellitus with hyperglycemia Debility and Fall Normocytic anemia Hypothyroid HTN HLD Stage II pressure ulcer sacrum Resolved: HyperK This complex discharge took 35 minutes to complete. Patient Condition at Discharge: Stable Plan - Discharge Summary Discharge Rx Participant: Yes New Discharge Prescriptions: New Aspirin 81 mg PO DAILY tab HYDROcodone/APAP 5-325MG [Drexel 5-325] 1 each PO Q4HR PRN #18 tab PRN Reason: Pain Continue Levothyroxine Sodium 100 mcg PO DAILY Atorvastatin Calcium [Lipitor] 40 mg PO HS Insulin NPH Hum/Reg Insulin Hm [NovoLIN 70-30 Flexpen] 15 units SQ HS Furosemide [Lasix] 40 mg PO BID carvediloL [Coreg] 3.125 mg PO BID Discontinued metOLazone [Zaroxolyn] 5 mg PO DAILY Discharge Medication List Levothyroxine Sodium 100 mcg PO DAILY 10/02/19 [History] Atorvastatin Calcium [Lipitor] 40 mg PO HS 04/18/23 [History] Furosemide [Lasix] 40 mg PO BID 04/18/23 [History] carvediloL [Coreg] 3.125 mg PO BID 04/18/23 [History] Insulin NPH Hum/Reg Insulin Hm [NovoLIN 70-30 Flexpen] 15 units SQ HS 05/17/24 [History] Aspirin 81 mg PO DAILY tab 05/20/24 [Rx] HYDROcodone/APAP 5-325MG [Drexel 5-325] 1 each PO Q4HR PRN #18 tab 05/20/24 [Rx] Follow up Appointment(s)/Referral(s): None,Stated [Primary Care Provider] - 1-2 days Jarrett Vaughn MD [STAFF PHYSICIAN] - 2 Weeks Activity/Diet/Wound Care/Special Instructions: Diet: Cardiac Repeat BMP in 3 days to follow up with PCP.
== END 2024-05-20 16:04 ==
LOC: EC 04:46 → 6NMEDSUR 07:23
PROVIDERS: ADMIT Internal Medicine; ATTEND Internal Medicine
DX: I13.0 Hypertensive heart and chronic kidney disease with heart failure and stage 1 through stage 4 chronic kidney disease, or unspecified chronic kidney disease (principal); I50.33 Acute on chronic diastolic (congestive) heart failure; E87.5 Hyperkalemia; N17.9 Acute kidney failure, unspecified; E11.22 Type 2 diabetes mellitus with diabetic chronic kidney disease; E11.65 Type 2 diabetes mellitus with hyperglycemia; N18.9 Chronic kidney disease, unspecified; D64.9 Anemia, unspecified; E03.9 Hypothyroidism, unspecified; E78.5 Hyperlipidemia, unspecified; G89.29 Other chronic pain; I27.20 Pulmonary hypertension, unspecified; I65.21 Occlusion and stenosis of right carotid artery; J44.9 Chronic obstructive pulmonary disease, unspecified; L89.152 Pressure ulcer of sacral region, stage 2; L97.911 Non-pressure chronic ulcer of unspecified part of right lower leg limited to breakdown of skin; L97.921 Non-pressure chronic ulcer of unspecified part of left lower leg limited to breakdown of skin; W06.XXXA Fall from bed, initial encounter; Z79.4 Long term (current) use of insulin; Z79.890 Hormone replacement therapy; Z79.899 Other long term (current) drug therapy; Z87.891 Personal history of nicotine dependence; Z88.0 Allergy status to penicillin
CPT/HCPCS: 96376 ×2; 96372 ×4; 96374; 99285; 36415; 93005; 93306; 97110; 97530; 97162; 97166; 83880; 80053; 80048 ×3; 84443; 82550; 83735; 84484; 85025; 85610; 85730; 81001; 87636; 72170; 73552; 73590; 72125; 70450; 71250; 74176; G0378 ×4; J1644 ×4; J1940 ×2; J1650

== ENCOUNTER 2024-07-14 18:15 | Observation (INO) | payer MEDICARE, OTHER ==
[2024-07-14] MEDS: FUROSEMIDE 10 MG/ML 4 ML VIAL IV STA (19:06)
[2024-07-14 19:11] LABS: Basophils % (A) 1 %; Eosinophils # (A) 0.4 k/uL (0-0.7); Eosinophils % (A) 7 %; HGB 9.6 gm/dL (11.4-16.0); Hypochromasia Moderate; Lymphocytes # (A) 1.2 k/uL (1.0-4.8); Lymphocytes % (A) 19 %; MCH 28.6 pg (25.0-35.0); MCHC 31.9 g/dL (31.0-37.0); MCV 89.5 fL (80.0-100.0); Mean Platelet Volume 8.5; Monocytes # (A) 0.5 k/uL (0-1.0); Monocytes % (A) 8 %; Neutrophils # (A) 4.1 k/uL (1.3-7.7); Neutrophils % (A) 64 %; Platelet Count 276 k/uL (150-450); RBC 3.35 m/uL (3.80-5.40); RDW 14.5 % (11.5-15.5); WBC 6.5 k/uL (3.8-10.6)
[2024-07-14 19:23] LABS: ALT <6 U/L (4-34); AST 11 U/L (14-36); African American GFR (CKD) 45 (>60 ml/min/1.73 sqM); Albumin 1.9 g/dL (3.5-5.0); Alkaline Phosphatase 81 U/L (38-126); Anion Gap 7 mmol/L; Blood Urea Nitrogen 41 mg/dL (7-17); Carbon Dioxide 13 mmol/L (22-30); Chloride 120 mmol/L (98-107); Glucose 117 mg/dL (74-99); Magnesium 1.5 mg/dL (1.6-2.3); Non-African American GFR(CKD) 39 (>60 ml/min/1.73 sqM); Potassium 3.7 mmol/L (3.5-5.1); Sodium 140 mmol/L (137-145); Total Bilirubin <0.1 mg/dL (0.2-1.3); Total Protein 4.4 g/dL (6.3-8.2)
--- NOTE | 2024-07-14 19:25 | ED ---
General Adult HPI - General Chief complaint: Extremity Problem,Nontraumatic Stated complaint: swelling Time Seen by Provider: 07/14/24 18:38 Source: patient, EMS, RN notes reviewed, old records reviewed Mode of arrival: EMS Limitations: no limitations - History of Present Illness Initial comments: Patient is an 83-year-old female who presents emergency department complaining of lower extremity edema, shortness of breath. States she has been noncompliant with her Lasix dosing at home for a few days. Has noticed worsening lower extremity edema in addition to shortness of breath. Shortness of breath is exertional. She has a nonproductive cough. Endorses worsening orthopnea. Patient denies chest pain. Denies fevers or chills. Denies sore throat. Denies abdominal pain, nausea, vomiting, diarrhea. No other acute complaints at this time. Patient presents over concern for her current symptoms. Patient has a past medical history remarkable for diabetes, COPD, congestive heart failure, hypertension, hyperlipidemia. Symptoms have been ongoing for multiple days. - Related Data Home Medications Medication Instructions Recorded Confirmed Levothyroxine Sodium 100 mcg PO DAILY 10/02/19 07/14/24 Atorvastatin Calcium [Lipitor] 40 mg PO HS 04/18/23 07/14/24 Furosemide [Lasix] 40 mg PO BID 04/18/23 07/14/24 carvediloL [Coreg] 3.125 mg PO BID 04/18/23 07/14/24 Insulin NPH Hum/Reg Insulin Hm 15 units SQ BID 05/17/24 07/14/24 [NovoLIN 70-30 Flexpen] Albuterol Inhaler [Ventolin Hfa 2 puff INHALATION RT-Q4H PRN 07/14/24 07/14/24 Inhaler] Gabapentin [Neurontin] 100 mg PO BID 07/14/24 07/14/24 Sacubitril/Valsartan [Entresto 24 1 tab PO BID 07/14/24 07/14/24 mg-26 mg Tablet] metOLazone [Zaroxolyn] 5 mg PO DAILY 07/14/24 07/14/24 Allergies Allergy/AdvReac Type Severity Reaction Status Date / Time Penicillins Allergy Rash/Hives Verified 07/14/24 20:14 Review of Systems ROS Statement: Those systems with pertinent positive or pertinent negative responses have been documented in the HPI. Review of Systems: CONST: Denies fever EYES: Denies blurry vision ENT: Denies nasal congestion C/V: Denies Chest pain RESP: Endorses shortness of breath GI: Denies abdominal pain : Denies dysuria SKIN: Chronic lower extremity venous stasis wounds MSK: Denies joint pain. NEURO: Denies headache ROS Other: All systems not noted in ROS Statement are negative. Past Medical History Past Medical History: Heart Failure, COPD, Diabetes Mellitus, GERD/Reflux, Hyperlipidemia, Hypertension, Osteoarthritis (OA), Pneumonia, Skin Disorder, Thyroid Disorder Additional Past Medical History / Comment(s): IDDM type II, neuropathy L hand, bilateral lower leg venostasis/dermatitis/cellulitis/ulcers/edema, FALLS, weakness, arthritis bilateral knees, vertigo, hypothyroid History of Any Multi-Drug Resistant Organisms: None Reported Past Surgical History: Breast Surgery, Cholecystectomy, Tonsillectomy Additional Past Surgical History / Comment(s): Benign mass removed from neck, R breast benign biopsy, R eye laser surgery/pt cannot recall reason. Past Anesthesia/Blood Transfusion Reactions: No Reported Reaction Past Psychological History: No Psychological Hx Reported Smoking Status: Former smoker Past Alcohol Use History: None Reported Past Drug Use History: None Reported - Past Family History Father Family Medical History: Hypertension, Myocardial Infarction ([place]) Additional Family Medical History / Comment(s): X3 [place], Mother Family Medical History: Cancer Additional Family Medical History / Comment(s): DIES FROM [place] General Exam Limitations: no limitations Course Vital Signs 07/14/24 18:22 Temperature 97.5 F L Pulse Rate 80 Respiratory 18 Rate Blood Pressure 149/55 O2 Sat by Pulse 94 L Oximetry Medical Decision Making - Medical Decision Making Was pt. sent in by a medical professional or institution (, PA, LABEL DRIER, urgent care, hospital, or alf...) When possible be specific @ -No Did you speak to anyone other than the patient for history (EMS, parent, family, police, friend...)? What history was obtained from this source @ -No Did you review nursing and triage notes (agree or disagree)? Why? @ -I reviewed and agree with nursing and triage notes Were old charts reviewed (outside hosp., previous admission, EMS record, old EKG, old radiological studies, urgent care reports/EKG's, alf records)? Report findings @ -Reviewed old charts confirming patient's diagnosis of CHF. Compared today's EKG with EKG from May 2024 with no obvious dynamic changes. Differential Diagnosis (chest pain, altered mental status, abdominal pain women, abdominal pain men, vaginal bleeding, weakness, fever, dyspnea, syncope, headache, dizziness, GI bleed, back pain, seizure, CVA, palpatations, mental health, musculoskeletal)? @ -Differential Dyspnea: Coronary syndrome, arrhythmia, tamponade, asthma, COPD, pulmonary embolism, pneumonia, pneumothorax, pulmonary effusion, anaphylaxis, diabetic ketoacidosis, flailed chest, pulmonary contusion, diaphragmatic rupture, anemia, neuromuscular, this is not meant to be an all-inclusive list. EKG interpreted by me (3pts min.). @ -As above X-rays interpreted by me (1pt min.). @ -Chest x-ray reveals atelectasis. No significant pulmonary vascular congestion. CT interpreted by me (1pt min.). @ -None done U/S interpreted by me (1pt. min.). @ -None done What testing was considered but not performed or refused? (CT, X-rays, U/S, labs)? Why? @ -None What meds were considered but not given or refused? Why? @ -None Did you discuss the management of the patient with other professionals (professionals i.e. , PA, LABEL DRIER, lab, RT, psych nurse, social work msw, simulation specialist, teacher, neighborhood conservation officer, director case management)? Give summary @ -Discussed the case with admitting provider, Dr. Mckeon who accepted the admission. Was smoking cessation discussed for >3mins.? @ -No Was critical care preformed (if so, how long)? @ -No Were there social determinants of health that impacted care today? How? (Joe elessness, low income, unemployed, alcoholism, drug addiction, transportation, low edu. Level, literacy, decrease access to med. care, long term, rehab)? @ -No Was there de-escalation of care discussed even if they declined (Discuss DNR or withdrawal of care, Hospice)? DNR status @ -No What co-morbidities impacted this encounter? (DM, HTN, Smoking, COPD, CAD, Cancer, CVA, ARF, Chemo, Hep., AIDS, mental health diagnosis, sleep apnea, morbid obesity)? @ -CHF, medication noncompliance Was patient admitted / discharged? Hospital course, mention meds given and route, prescriptions, significant lab abnormalities, going to OR and other pertinent info. @ -Patient presents emergency department with what appears to be CHF exacerbation secondary to medication noncompliance. Patient does have chronic venous stasis wounds that do not appear infected at this time. She has lower extremity edema that is worsening, worsening orthopnea, worsening dyspnea, nonproductive cough. We will obtain basic workup in addition to chest x-ray. She is given a dose of Lasix. Vitals otherwise within acceptable limits. No hypoxia or respiratory distress. Patient was in agreement this plan. Patient's laboratory studies returned remarkable for hypomagnesemia. Corrected calcium is low but not as significantly low as the 6.3 listed. Corrected calcium is 8.0. Patient has chronic anemia with a hemoglobin of 9.6. Evaluation, as patient is clinically presenting as a CHF exacerbation with hypomagnesemia, patient will be admitted on IV Lasix. Show received a dose. She is resting comfortably at this time. No hypoxia. Patient is medication noncompliance. Patient also received magnesium. Cardiology consulted. Echo ordered. [facility] the [facility], Dr. Mckeon who accepted the admission. With Dr. Mckeon I discussed the radiology finding of possible pneumonia however placido orta has no symptoms. Nonproductive cough, no fever, no hypoxia, no leukocytosis. We are both in agreement with holding at this time. Undiagnosed new problem with uncertain prognosis? @ -No Drug Therapy requiring intensive monitoring for toxicity (Heparin, Nitro, Insulin, Cardizem)? @ -No Were any procedures done? @ -No Diagnosis/symptom? @ -CHF, hypomagnesemia Acute, or Chronic, or Acute on Chronic? @ -Acute on chronic, acute Uncomplicated (without systemic symptoms) or Complicated (systemic symptoms)? @ -Complicated Side effects of treatment? @ -None Exacerbation, Progression, or Severe Exacerbation] @ -No Poses a threat to life or bodily function? @ -Yes - Lab Data Result diagrams: 07/14/24 19:01 07/14/24 19:01 Lab Results 07/14/24 07/14/24 07/14/24 Range/Units 19: 19: 19: WBC 6.5 (3.8-10.6) k/uL RBC 3.35 L (3.80-5.40) m/uL Hgb 9.6 L (11.4-16.0) gm/dL Hct 30.0 L (34.0-46.0) % MCV 89.5 (80.0-100.0) fL MCH 28.6 (25.0-35.0) pg MCHC 31.9 (31.0-37.0) g/dL RDW 14.5 (11.5-15.5) % Plt Count 276 (150-450) k/uL MPV 8.5 Neutrophils % 64 % Lymphocytes % 19 % Monocytes % 8 % Eosinophils % 7 % Basophils % 1 % Neutrophils # 4.1 (1.3-7.7) k/uL Lymphocytes # 1.2 (1.0-4.8) k/uL Monocytes # 0.5 (0-1.0) k/uL Eosinophils # 0.4 (0-0.7) k/uL Basophils # 0.0 (0-0.2) k/uL Hypochromasia Moderate PT 10.5 (10.0-12.5) sec INR 0.9 (<1.2) APTT 17.9 L (22.0-30.0) sec Sodium 140 (137-145) mmol/L Potassium 3.7 (3.5-5.1) mmol/L Chloride 120 H (98-107) mmol/L Carbon Dioxide 13 L (22-30) mmol/L Anion Gap 7 mmol/L BUN 41 H (7-17) mg/dL Creatinine 1.27 H (0.52-1.04) mg/dL Est GFR (CKD-EPI)AfAm 45 (>60 ml/min/1.73 sqM) Est GFR (CKD-EPI)NonAf 39 (>60 ml/min/1.73 sqM) Glucose 117 H (74-99) mg/dL Calcium 6.3 L* (8.4-10.2) mg/dL Magnesium 1.5 L (1.6-2.3) mg/dL Total Bilirubin <0.1 L (0.2-1.3) mg/dL AST 11 L (14-36) U/L ALT <6 (4-34) U/L Alkaline Phosphatase 81 (38-126) U/L NT-Pro-B Natriuret Pep 1550 pg/mL Total Protein 4.4 L (6.3-8.2) g/dL Albumin 1.9 L (3.5-5.0) g/dL Influenza Type A (PCR) (Not Detectd) Influenza Type B (PCR) (Not Detectd) RSV (PCR) (Not Detectd) SARS-CoV-2 (PCR) (Not Detectd) 07/14/24 Range/Units 19:01 WBC (3.8-10.6) k/uL RBC (3.80-5.40) m/uL Hgb (11.4-16.0) gm/dL Hct (34.0-46.0) % MCV (80.0-100.0) fL MCH (25.0-35.0) pg MCHC (31.0-37.0) g/dL RDW (11.5-15.5) % Plt Count (150-450) k/uL MPV Neutrophils % % Lymphocytes % % Monocytes % % Eosinophils % % Basophils % % Neutrophils # (1.3-7.7) k/uL Lymphocytes # (1.0-4.8) k/uL Monocytes # (0-1.0) k/uL Eosinophils # (0-0.7) k/uL Basophils # (0-0.2) k/uL Hypochromasia PT (10.0-12.5) sec INR (<1.2) APTT (22.0-30.0) sec Sodium (137-145) mmol/L Potassium (3.5-5.1) mmol/L Chloride (98-107) mmol/L Carbon Dioxide (22-30) mmol/L Anion Gap mmol/L BUN (7-17) mg/dL Creatinine (0.52-1.04) mg/dL Est GFR (CKD-EPI)AfAm (>60 ml/min/1.73 sqM) Est GFR (CKD-EPI)NonAf (>60 ml/min/1.73 sqM) Glucose (74-99) mg/dL Calcium (8.4-10.2) mg/dL Magnesium (1.6-2.3) mg/dL Total Bilirubin (0.2-1.3) mg/dL AST (14-36) U/L ALT (4-34) U/L Alkaline Phosphatase (38-126) U/L NT-Pro-B Natriuret Pep pg/mL Total Protein (6.3-8.2) g/dL Albumin (3.5-5.0) g/dL Influenza Type A (PCR) Not Detected (Not Detectd) Influenza Type B (PCR) Not Detected (Not Detectd) RSV (PCR) Not Detected (Not Detectd) SARS-CoV-2 (PCR) Not Detected (Not Detectd) - EKG Data -: EKG Interpreted by Me EKG Comments: 12-lead Electrocardiogram Interpretation Note EKG was reviewed and interpreted by myself. 12-lead ECG performed at 1929 is interpreted by me as revealing normal sinus rhythm at a rate of 73 beats per minute. Micro is normal. VT interval is 188 ms, QRS duration is 88 ms, QTc is 444 ms.. There were no ST or T wave abnormalities to suggest myocardial ischemia or injury. R wave progression across the precordium was satisfactory. By my interpretation this EKG is non-diagnostic for acute ischemia. Disposition Clinical Impression: CHF (congestive heart failure), Hypomagnesemia Disposition: ADMITTED IP TO THIS HOSP Condition: Stable Referrals: None,Stated [Primary Care Provider] - 1-2 days Time of Disposition: 20:30
--- NOTE | 2024-07-14 19:30 | XR ---
EXAMINATION TYPE: XR chest 2V DATE OF EXAM: 07/14/2024 7:21 PM COMPARISON: Previous chest radiograph, most recently dated 04/22/2023. CLINICAL INDICATION: Female, 83 years old with history of Weakness; [facility] TECHNIQUE: XR chest 2V Frontal and lateral views of the chest. FINDINGS: Cardiac silhouette within normal limits for size. Questionable patchy right upper lobe opacity and small left pleural effusion. A subtle right-sided pleural effusion. No pneumothorax. No acute osseous abnormality. IMPRESSION: 1. Questionable patchy right upper lobe opacity which could reflect atelectasis and/or pneumonia. 2. Small left pleural effusion. [facility], , 07/14/2024 7:28 PM
[2024-07-14 19:31] LABS: NT-Pro-B-Type Natriuretic Pept 1550 pg/mL
[2024-07-14 19:48] LABS: INR 0.9 (<1.2); Prothrombin Time 10.5 sec (10.0-12.5)
[2024-07-14 19:53] LABS: Calcium 6.3 mg/dL (8.4-10.2)
[2024-07-14 19:55] LABS: Partial Thromboplastin Time 17.9 sec (22.0-30.0)
[2024-07-14] MEDS ORDERED: NALOXONE 0.4 MG/ML 1 ML VIAL IV PRN (20:27)
[2024-07-14] MEDS ORDERED: ONDANSETRON 4 MG/2 ML VIAL IVP PRN (20:27)
[2024-07-14 20:33] LABS: Appearance,Urine Clear (Clear); Bilirubin,Urine Negative (Negative); Blood,Urine Negative (Negative); Color,Urine Colorless; Glucose,Urine (UA) Negative (Negative); Ketones,Urine Negative (Negative); Leukocyte Esterase,Urine Negative (Negative); Nitrite,Urine Negative (Negative); Protein,Urine Negative (Negative); Specific Gravity,Urine 1.006 (1.001-1.035); Urobilinogen,Urine <2.0 mg/dL (<2.0)
[2024-07-14] MEDS: MAGNESIUM SULFATE-D5W PMX 1 GM in DEXTROSE/WATER 1 100ML.BAG IVPB ONE (20:46)
[2024-07-14] MEDS: SACUBITRIL/VALSARTAN 24 MG-26 MG TABLET PO SCH (20:46)
[2024-07-14] MEDS: GABAPENTIN 100 MG CAP PO SCH (20:46)
[2024-07-14] MEDS: ATORVASTATIN 40 MG TAB PO SCH (20:46)
[2024-07-14] MEDS: HEPARIN SODIUM,PORCINE 5,000 UNIT/ML 1 ML VIAL SQ SCH (20:47)
--- NOTE | 2024-07-15 00:59 | P.HPIM ---
History of Present Illness H&P Date: 07/14/24 Chief Complaint: Lower Extremity Edema, SOB Patient is an 83-year-old female w/ PMH of diastolic CHF, type II DM, COPD, hypertension, hyperlipidemia, hypothyroidism who presents to the emergency department complaining of lower extremity edema and shortness of breath for a few days. She states both have been progressively worsening. She also endorses a nonproductive cough. Patient states she has orthopnea and has to use atleast 1 pillow to prop herself at night for sleep. She reports that she has not taken her home Lasix for the past 1 to 2 weeks as she found it difficult to ambulate to the restroom every 1 hour as caused by the diuretic. She does not follow-up with a computer operations supervisor due to difficulty with ambulation and transportation. Patient also has chronic leg wounds bilaterally. She states home care nurses come to her house twice a week to change the dressings and a physician sees her once a month. She denies any chest pain, fevers, chills, abdominal pain, nausea, vomiting, diarrhea. ED documentation reviewed. Vitals on admission temperature 97.5, pulse 80, respiratory rate 18, blood pressure 149/55, 94% O2 saturation on room air EKG independently interpreted as sinus rhythm, ventricular rate 73 bpm, QTc [address]-T wave changes noted as reviewed by me CXR shows questionable patchy right upper lobe opacity atelectasis versus pneumonia, small left pleural effusion Labs on admission show WBC 6.5, hemoglobin 9.6, hematocrit 30, platelets 276, PT 10.5, INR 0.9, APTT 17.9. Sodium 140 potassium 3.7 chloride 120 bicarb 13 BUN 41 creatinine 1.27 glucose 117 calcium 6.3(corrected 7.6) magnesium 1.5. UA was unremarkable. Viral serologies were negative for influenza A/B, RSV, COVID. Review of systems: Pertinent positives and negatives as discussed in HPI, a complete review of systems was performed and all other systems are negative. PMH: Diabetes, COPD, CHF, HTN, HLD, hypothyroidism PSH: none Allergies: penicillin(rash) Social history: Tobacco: former smoker Alcohol: none Recreational drugs: none Travel: none Sick contacts: none Physical examination: Vital signs reviewed General: nontoxic, no distress, appears at stated age Derm: warm, dry, intact, stage 2 decubitus ulcer noted at intergluteal cleft, shubham LE extensive chronic-appearing wounds w/ mild surrounding erythema and purulent base with mild foul odor Head: atraumatic, normocephalic, symmetric Eyes: anicteric sclera Mouth: no lip lesion, mucus membranes moist Cardiovascular: S1 S2 reg, no murmur Lungs: Mild crackles noted at the bases bilaterally, no rhonchi, no rales, no accessory muscle use Abdominal: soft, non-tender to palpation, nondistended, reducible abdominal hernia Extremities: No cyanosis, clubbing. 3+ pitting edema bilateral lower extremities Neuro: Alert, Oriented to person, not to time and place, Gross neurological examination did not reveal any focal deficits. Cranial nerves II to XII grossly intact. Bilateral upper and lower extremity muscle strength intact and sensation intact. Psych: well appearing, appropriate affect Assessment/Plan: Patient is a 83-year-old female with past medical history of CHF (most recent echo was done May 2024 shows ejection fraction of 55 to 60%, mild MR), insulin-dependent diabetes mellitus type 2, hypertension, hyperlipidemia, COPD who presented to the emergency department with lower extremity edema and shortness of breath. Patient will be admitted to internal medicine service for further evaluation and treatment of CHF exacerbation. Active: #Acute on chronic heart failure exacerbation with preserved EF C/w Lasix 40 mg IV every 12 hours C/w Metolazone 5 PO mg daily Intake and output Daily weight Cardiology consult Cardiac monitoring Obtain daily BMP and Magnesium levels C/w Entresto 24 mg26 mg p.o. twice daily F/u Echocardiogram # Hypomagnesemia Replace and monitor # Hypocalcemia Corrected: 7.6 mg/dL Administer one time Calcium gluconate 1 g IVPB # Shubham LE and sacral ulcers Wound care consult Dressings changed in the ER Chronic: # Insulin-dependent diabetes mellitus type 2 Continue NovoLog Mix 70-30 15 units subcu twice daily with meals Continue Gabapentin for neuropathy Accu-Cheks per [facility] protocol Hypoglycemia precautions # CKD Stage II At baseline #Normocytic anemia, at baseline #HTN Continue Coreg 3.125 mg twice daily and Entresto #HLD Continue Lipitor 40 mg p.o. at bedtime #Hypothyroidism Continue Synthroid 100 mcg daily F: None, strict I's and O's E: Replete as needed N: Heart healthy diet A: As tolerated DVT prophylaxis: Heparin 5000 units SQ every 12 hours The patient is admitted with an anticipated more than 2 midnight stay for evaluation of CHF exacerbation CODE STATUS: Full code Discussed with: Patient Anticipated discharge place: Home Past Medical History Past Medical History: Heart Failure, COPD, Diabetes Mellitus, GERD/Reflux, Hyperlipidemia, Hypertension, Osteoarthritis (OA), Pneumonia, Skin Disorder, Thyroid Disorder Additional Past Medical History / Comment(s): IDDM type II, neuropathy L hand, bilateral lower leg venostasis/dermatitis/cellulitis/ulcers/edema, FALLS, weakness, arthritis bilateral knees, vertigo, hypothyroid History of Any Multi-Drug Resistant Organisms: None Reported Past Surgical History: Breast Surgery, Cholecystectomy, Tonsillectomy Additional Past Surgical History / Comment(s): Benign mass removed from neck, R breast benign biopsy, R eye laser surgery/pt cannot recall reason. Past Anesthesia/Blood Transfusion Reactions: No Reported Reaction Past Psychological History: No Psychological Hx Reported Smoking Status: Former smoker Past Alcohol Use History: None Reported Past Drug Use History: None Reported - Past Family History Father Family Medical History: Hypertension, Myocardial Infarction ([place]) Additional Family Medical History / Comment(s): X3 [place], Mother Family Medical History: Cancer Additional Family Medical History / Comment(s): DIES FROM [place] Medications and Allergies Home Medications Medication Instructions Recorded Confirmed Type Levothyroxine Sodium 100 mcg PO DAILY 10/02/19 07/14/24 History Atorvastatin Calcium [Lipitor] 40 mg PO HS 04/18/23 07/14/24 History Furosemide [Lasix] 40 mg PO BID 04/18/23 07/14/24 History carvediloL [Coreg] 3.125 mg PO BID 04/18/23 07/14/24 History Insulin NPH Hum/Reg Insulin Hm 15 units SQ BID 05/17/24 07/14/24 History [NovoLIN 70-30 Flexpen] Albuterol Inhaler [Ventolin Hfa 2 puff INHALATION RT-Q4H PRN 07/14/24 07/14/24 History Inhaler] Gabapentin [Neurontin] 100 mg PO BID 07/14/24 07/14/24 History Sacubitril/Valsartan [Entresto 24 1 tab PO BID 07/14/24 07/14/24 History mg-26 mg Tablet] metOLazone [Zaroxolyn] 5 mg PO DAILY 07/14/24 07/14/24 History Allergies Allergy/AdvReac Type Severity Reaction Status Date / Time Penicillins Allergy Rash/Hives Verified 07/14/24 20:14 Physical Exam Vitals: Vital Signs Temp Pulse Resp BP Pulse Ox 07/14/24 18:22 97.5 F L 80 18 149/55 94 L Intake and Output 07/14/24 07/14/24 07/14/24 06:59 14:59 22:59 Other: Weight 86.183 kg Results CBC & Chem 7: 07/14/24 19:01 07/14/24 19:01 Labs: Abnormal Lab Results - Last 24 Hours (Table) 07/14/24 07/14/24 07/14/24 Range/Units 19:01 19: 19:01 RBC 3.35 L (3.80-5.40) m/uL Hgb 9.6 L (11.4-16.0) gm/dL Hct 30.0 L (34.0-46.0) % APTT 17.9 L (22.0-30.0) sec Chloride 120 H (98-107) mmol/L Carbon Dioxide 13 L (22-30) mmol/L BUN 41 H (7-17) mg/dL Creatinine 1.27 H (0.52-1.04) mg/dL Glucose 117 H (74-99) mg/dL Calcium 6.3 L* (8.4-10.2) mg/dL Magnesium 1.5 L (1.6-2.3) mg/dL Total Bilirubin <0.1 L (0.2-1.3) mg/dL AST 11 L (14-36) U/L Total Protein 4.4 L (6.3-8.2) g/dL Albumin 1.9 L (3.5-5.0) g/dL
[2024-07-15] MEDS: CALCIUM GLUCONATE IN NACL 1 GM in SALINE 1 100ML.BAG IVPB ONE (02:31)
[2024-07-15] MEDS: LEVOTHYROXINE 100 MCG TAB PO SCH (05:58)
[2024-07-15] MEDS: carvediloL 3.125 MG TAB PO SCH (05:58)
[2024-07-15 06:00] LABS: Glucose,Whole Blood 175 mg/dL (70-110)
[2024-07-15 06:18] LABS: Basophils % (A) 0 %; Eosinophils # (A) 0.3 k/uL (0-0.7); Eosinophils % (A) 5 %; HCT 26.5 % (34.0-46.0); HGB 8.5 gm/dL (11.4-16.0); Hypochromasia Moderate; Lymphocytes % (A) 21 %; MCH 28.2 pg (25.0-35.0); MCV 88.3 fL (80.0-100.0); Mean Platelet Volume 7.5; Monocytes # (A) 0.5 k/uL (0-1.0); Monocytes % (A) 10 %; Neutrophils % (A) 62 %; Platelet Count 237 k/uL (150-450); RBC 3.01 m/uL (3.80-5.40); RDW 14.2 % (11.5-15.5); WBC 4.9 k/uL (3.8-10.6)
[2024-07-15 06:58] LABS: ALT <6 U/L (4-34); AST 13 U/L (14-36); African American GFR (CKD) 33 (>60 ml/min/1.73 sqM); Albumin 2.6 g/dL (3.5-5.0); Alkaline Phosphatase 124 U/L (38-126); Anion Gap 7 mmol/L; Blood Urea Nitrogen 58 mg/dL (7-17); Carbon Dioxide 21 mmol/L (22-30); Chloride 108 mmol/L (98-107); Glucose 163 mg/dL (74-99); Non-African American GFR(CKD) 28 (>60 ml/min/1.73 sqM); Potassium 5.2 mmol/L (3.5-5.1); Sodium 136 mmol/L (137-145); Total Bilirubin 0.2 mg/dL (0.2-1.3); Total Protein 5.5 g/dL (6.3-8.2)
[2024-07-15] MEDS: INSULN ASP PRT/INSULIN ASPART 100 UNIT/ML 10 ML VIAL SQ SCH (08:58)
[2024-07-15] MEDS: FUROSEMIDE 10 MG/ML 4 ML VIAL IV SCH (08:59)
[2024-07-15] MEDS: metOLazone 5 MG TAB PO SCH (10:15)
--- NOTE | 2024-07-15 11:14 | P.CRDCN ---
History of Present Illness History of present illness: HISTORY OF PRESENT ILLNESS: This is a 83-year-old female with a past medical history significant for hypertension, hyperlipidemia, diabetes, and congestive heart failure. Patient does not follow with a geology scientist. We have been asked to see the patient in consultation for congestive heart failure. Patient examined at the bedside. The patient was recently hospitalized in May 2024 due to congestive heart failure. Patient presented to the hospital with a chief complaint of shortness of breath. Patient denies having any chest pain or pressure. She was found to be in CHF. Patient was started on IV Lasix 40 mg twice a day. Patient reports improvement in her shortness of breath this morning. Patient states that she has not been taking her Lasix at home because it made her urinate too frequently. Patient does have HUBER this morning with a creatinine of 1.66. DIAGNOSTICS: - EKG reveals sinus mechanism with no signs of acute ischemia - Chest xray questionable patchy right upper lobe opacity which could reflect atelectasis and/or pneumonia. Small left pleural effusion. - Laboratory data: WBC 4.9. Hemoglobin 8.5. Platelet count 237. Sodium 136. Potassium 5.2. BUN 58. Creatinine 1.66. Magnesium 1.5. proBNP 1550. - Current home cardiac medications include atorvastatin 40 mg at night, Lasix 40 mg twice a day, carvedilol 3.125 mg twice a day, Entresto 24-26 mg twice a day, and Zaroxolyn 5 mg daily. - Most recent echocardiogram obtained in May 2024 revealed ejection fraction 55 to 60%, mild MR, mild TR - Cardiac catheterization history: Unknown REVIEW OF SYSTEMS: At the time of my exam: CONSTITUTIONAL: Denies fever or chills. HEENT: Denies blurred vision, vision changes, or eye pain. Denies hemoptysis CARDIOVASCULAR: Denies chest pain. Denies orthopnea. Denies PND. Denies palpitations RESPIRATORY: Denies shortness of breath. GASTROINTESTINAL: Denies abdominal pain. Denies nausea or vomiting. HEMATOLOGIC: Denies bleeding disorders. GENITOURINARY: Denies any blood in urine. SKIN: Denies pruitis. Denies rash. PHYSICAL EXAM: VITAL SIGNS: Reviewed. GENERAL: Well-developed in no acute distress. HEENT: Head is normocephalic. Pupils are equal, round. Sclerae anicteric. Mucous membranes of the mouth are moist. Neck supple. No JVD or thyromegaly LUNGS: Respirations even and unlabored. Lungs essentially clear to auscultation bilaterally. HEART: Regular rate and rhythm. S1 and S2 heard. Systolic murmur noted ABDOMEN: Soft. Nondistended. Nontender. EXTREMITIES: Normal range of motion. No clubbing or cyanosis. Peripheral pulses intact. Bilateral lower extremity edema noted. Dressing to left lower extremity. Right lower extremity with ulcerations noted and erythema. NEUROLOGIC: Awake and alert. Oriented x 3. ASSESSMENT: Shortness of breath Acute on chronic heart failure with preserved EF Medication noncompliance, patient not taking her Lasix at home due to increased urination Acute on chronic kidney disease Hypertension Hyperlipidemia Right internal carotid artery stenosis 50 to 70% Diabetes Lower extremity ulcers PLAN: No need to repeat echocardiogram as this was performed in May 2024 Resume home cardiac medications Continue IV Lasix. Decrease dose to 20 mg twice a day due to worsening kidney function. Anticipate transition to oral diuretics tomorrow Daily weights, accurate intake and output, monitoring of kidney function Further recommendations pending patient course Nurse practitioner note has been reviewed by physician. Signing provider agrees with the documented findings, assessment, and plan of care documented by CROZER OPERATOR as a scribe. Past Medical History Past Medical History: Heart Failure, COPD, Diabetes Mellitus, GERD/Reflux, Hyperlipidemia, Hypertension, Osteoarthritis (OA), Pneumonia, Skin Disorder, Thyroid Disorder Additional Past Medical History / Comment(s): IDDM type II, neuropathy L hand, bilateral lower leg venostasis/dermatitis/cellulitis/ulcers/edema, FALLS, weakness, arthritis bilateral knees, vertigo, hypothyroid History of Any Multi-Drug Resistant Organisms: None Reported Past Surgical History: Breast Surgery, Cholecystectomy, Tonsillectomy Additional Past Surgical History / Comment(s): Benign mass removed from neck, R breast benign biopsy, R eye laser surgery/pt cannot recall reason. Past Anesthesia/Blood Transfusion Reactions: No Reported Reaction Past Psychological History: No Psychological Hx Reported Smoking Status: Former smoker Past Alcohol Use History: None Reported Past Drug Use History: None Reported - Past Family History Father Family Medical History: Hypertension, Myocardial Infarction ([place]) Additional Family Medical History / Comment(s): X3 [place], Mother Family Medical History: Cancer Additional Family Medical History / Comment(s): DIES FROM [place] Medications and Allergies Home Medications Medication Instructions Recorded Confirmed Type Levothyroxine Sodium 100 mcg PO DAILY 10/02/19 07/14/24 History Atorvastatin Calcium [Lipitor] 40 mg PO HS 04/18/23 07/14/24 History Furosemide [Lasix] 40 mg PO BID 04/18/23 07/14/24 History carvediloL [Coreg] 3.125 mg PO BID 04/18/23 07/14/24 History Insulin NPH Hum/Reg Insulin Hm 15 units SQ BID 05/17/24 07/14/24 History [NovoLIN 70-30 Flexpen] Albuterol Inhaler [Ventolin Hfa 2 puff INHALATION RT-Q4H PRN 07/14/24 07/14/24 History Inhaler] Gabapentin [Neurontin] 100 mg PO BID 07/14/24 07/14/24 History Sacubitril/Valsartan [Entresto 24 1 tab PO BID 07/14/24 07/14/24 History mg-26 mg Tablet] metOLazone [Zaroxolyn] 5 mg PO DAILY 07/14/24 07/14/24 History Allergies Allergy/AdvReac Type Severity Reaction Status Date / Time Penicillins Allergy Rash/Hives Verified 07/14/24 20:14 Physical Exam Vitals: Vital Signs Temp Pulse Pulse Resp BP BP Pulse Ox 07/15/24 07:30 98.2 F 70 15 130/60 93 L 07/15/24 01:12 97.6 F 76 18 116/58 99 07/15/24 00:52 97.8 F 72 18 162/55 97 07/14/24 21:39 80 12 149/55 100 07/14/24 18:22 97.5 F L 80 18 149/55 94 L Intake and Output 07/14/24 07/15/24 07/15/24 22:59 06:59 14:59 Output Total 1000 625 Balance -1000 -625 Output: Urine 1000 625 Other: Voiding Method External Catheter Weight 86.183 kg 104 kg Results 07/15/24 05:59 07/15/24 05:59 Cardiac Enzymes 07/14/24 07/15/24 Range/Units 19:01 05:59 AST 11 L 13 L (14-36) U/L Coagulation 07/14/24 Range/Units 19:01 PT 10.5 (10.0-12.5) sec APTT 17.9 L (22.0-30.0) sec CBC 07/14/24 07/15/24 Range/Units 19:01 05:59 WBC 6.5 4.9 (3.8-10.6) k/uL RBC 3.35 L 3.01 L (3.80-5.40) m/uL Hgb 9.6 L 8.5 L (11.4-16.0) gm/dL Hct 30.0 L 26.5 L (34.0-46.0) % Plt Count 276 237 (150-450) k/uL Comprehensive Metabolic Panel 07/14/24 07/15/24 Range/Units 19:01 05:59 Sodium 140 136 L (137-145) mmol/L Potassium 3.7 5.2 H (3.5-5.1) mmol/L Chloride 120 H 108 H (98-107) mmol/L Carbon Dioxide 13 L 21 L (22-30) mmol/L BUN 41 H 58 H (7-17) mg/dL Creatinine 1.27 H 1.66 H (0.52-1.04) mg/dL Glucose 117 H 163 H (74-99) mg/dL Calcium 6.3 L* 9.0 (8.4-10.2) mg/dL AST 11 L 13 L (14-36) U/L ALT <6 <6 (4-34) U/L Alkaline Phosphatase 81 124 (38-126) U/L Total Protein 4.4 L 5.5 L (6.3-8.2) g/dL Albumin 1.9 L 2.6 L (3.5-5.0) g/dL Current Medications Generic Name Dose Route Start Last Admin Trade Name Freq PRN Reason Stop Dose Admin Albuterol Sulfate 2.5 mg 07/14/24 20:29 Albuterol Nebulized 2.5 Mg/3 Ml INHALATION RT-Q4H PRN Shortness Of Breath Atorvastatin Calcium 40 mg 07/14/24 21:00 07/14/24 20:46 Atorvastatin 40 Mg Tab PO 40 mg HS CLYDE Administration Carvedilol 3.125 mg 07/15/24 07:30 07/15/24 05:58 Carvedilol 3.125 Mg Tab PO 3.125 mg BID-W/MEALS CLYDE Administration Furosemide 40 mg 07/15/24 09:00 Furosemide 10 Mg/Ml 4 Ml Vial IV Q12HR CLYDE Gabapentin 100 mg 07/14/24 21:00 07/14/24 20:46 Gabapentin 100 Mg Cap PO 100 mg BID CLYDE Administration Heparin Sodium (Porcine) 5,000 unit 07/14/24 21:00 07/14/24 20:47 Heparin Sodium,Porcine 5,000 Unit/Ml 1 Ml Vial SQ 5,000 unit Q12HR CLYDE Administration Insulin Aspart 15 unit 07/15/24 07:30 Insuln Asp Prt/Insulin Aspart 100 Unit/Ml 10 Ml Vial SQ BID-W/MEALS CLYDE Levothyroxine Sodium 100 mcg 07/15/24 06:30 07/15/24 05:58 Levothyroxine 100 Mcg Tab PO 100 mcg DAILY@0630 CLYDE Administration Metolazone 5 mg 07/15/24 09:00 Metolazone 5 Mg Tab PO DAILY CLYDE Naloxone HCl 0.2 mg 07/14/24 20:27 Naloxone 0.4 Mg/Ml 1 Ml Vial IV Q2M PRN Opioid Reversal Ondansetron HCl 4 mg 07/14/24 20:27 Ondansetron 4 Mg/2 Ml Vial IVP Q8HR PRN Nausea And Vomiting Sacubitril/Valsartan 1 each 07/14/24 21:00 07/14/24 20:46 Sacubitril/Valsartan 24 Mg-26 Mg Tablet PO 1 each BID CLYDE Administration Intake and Output 07/14/24 07/15/24 07/15/24 22:59 06:59 14:59 Output Total 1000 625 Balance -1000 -625 Output: Urine 1000 625 Other: Voiding Method External Catheter Weight 86.183 kg 104 kg 07/15/24 05:59 07/15/24 05:59
[2024-07-15 11:42] LABS: Magnesium 2.2 mg/dL (1.5-2.4)
[2024-07-15 12:21] LABS: Glucose,Whole Blood 67 mg/dL (70-110)
[2024-07-15 12:52] LABS: Glucose,Whole Blood 115 mg/dL (70-110)
--- NOTE | 2024-07-15 15:13 | P.PN ---
Subjective Progress Note Date: 07/15/24 Hospital Course: 82-year-old female with PMH of diastolic CHF, type II DM, COPD not on home oxy gen, HTN, HLD, hypothyroidism who presented to the ED with worsening lower extremity swelling and shortness of breath, orthopnea, patient has not been taking her home Lasix due to difficulty ambulating to the restroom. Patient does not follow with a shirt sorter due to difficulties with transportation. Chronic lower extremity wounds present, there is a visiting nurse who takes care of it at home. Patient's chest x-ray showed questionable patchy right upper lobe opacity atelectasis versus pneumonia, small left pleural effusion, viral panel was negative, patient was admitted for management of acute on chronic CHF exacerbation, cardiology consult, TTE, started on IV Lasix. No need to repeat CT per cardiology. Lasix was decreased to 20 twice daily anticipate transition to oral on 07/16, monitor kidney function closely, there is bump in creatinine today. Subjective: Feels better today, shortness of breath improved, swelling is going down Pertinent positives and negatives as discussed above, a complete review of systems was performed and all other systems are negative. Vitals Signs Reviewed. General: [nontoxic], [no distress], [appears at stated age] Derm: [warm], [dry] Head: [atraumatic], [normocephalic], [symmetric] Eyes: [EOMI], [no lid lag], [anicteric sclera] Mouth: [no lip lesion], [mucus membranes moist] Cardiovascular: [S1S2 reg], [no murmur] Lungs: [CTA bilateral], [no rhonchi, no rales] , [no accessory muscle use] Abdominal: [soft], [ nontender to palpation], [no guarding], [no appreciable organomegaly] Ext: [Lateral lower extremity edema, dressing intact, bilateral lower extremity wounds/ulceration Neuro: [ CN II-XI grossly intact], [no focal neuro deficits] Psych: [Alert], [oriented], [appropriate affect] Data Reviewed Today: Pertinent Labs: No leukocytosis, hemoglobin 8.5, sodium 136, creatinine increased from 1.27-1.66, glucose is controlled, Assessment and Plan: Acute on chronic HFpEF exacerbation secondary to medication noncompliance due to mobility issues HUBER on CKD stage III secondary to diuresis -Lasix decreased to 20 twice daily, plan to transition to oral likely 07/16 -No TTE needed per cardiology -Cardiology is following -Strict I's and O's, daily weights -Monitor BMP Hypomagnesemia Replace and monitor Hypocalcemia Corrected: 7.6 mg/dL Administer one time Calcium gluconate 1 g IVPB Shubham LE and sacral ulcers Wound care consult Dressings changed in the ER Chronic: Insulin-dependent diabetes mellitus type 2 Continue NovoLog Mix 70-30 15 units subcu twice daily with meals Continue Gabapentin for neuropathy Accu-Cheks per [facility] protocol Hypoglycemia precautions Normocytic anemia, at baseline HTN Continue Coreg 3.125 mg twice daily and Entresto HLD Continue Lipitor 40 mg p.o. at bedtime Hypothyroidism Continue Synthroid 100 mcg daily VTE prophylaxis: Heparin Anticipated discharge place: TBD, PT OT ordered Anticipated discharge time: 24 to 48 hours Objective - Vital Signs Vital signs: Vital Signs Temp 98.2 F 07/15/24 14:40 Pulse 67 07/15/24 14:40 Resp 15 07/15/24 14:40 BP 111/46 07/15/24 14:40 Pulse Ox 97 07/15/24 14:40 FiO2 Intake & Output 07/14/24 07/15/24 07/15/24 18:59 06:59 18:59 Intake Total 236 Output Total 1625 600 Balance -1625 -364 Weight 86.183 kg 104 kg Intake: Oral 236 Output: Urine 1625 600 Other: Voiding Method External Catheter - Labs CBC & Chem 7: 07/15/24 05:59 07/15/24 11:02 Labs: Abnormal Lab Results - Last 24 Hours (Table) 07/14/24 07/14/24 07/14/24 Range/Units 19:01 19:01 19:01 RBC 3.35 L (3.80-5.40) m/uL Hgb 9.6 L (11.4-16.0) gm/dL Hct 30.0 L (34.0-46.0) % APTT 17.9 L (22.0-30.0) sec Sodium (137-145) mmol/L Potassium (3.5-5.1) mmol/L Chloride 120 H (98-107) mmol/L Carbon Dioxide 13 L (22-30) mmol/L BUN 41 H (7-17) mg/dL Creatinine 1.27 H (0.52-1.04) mg/dL Glucose 117 H (74-99) mg/dL POC Glucose (mg/dL) (70-110) mg/dL Calcium 6.3 L* (8.4-10.2) mg/dL Magnesium 1.5 L (1.6-2.3) mg/dL Total Bilirubin <0.1 L (0.2-1.3) mg/dL AST 11 L (14-36) U/L Total Protein 4.4 L (6.3-8.2) g/dL Albumin 1.9 L (3.5-5.0) g/dL 07/15/24 07/15/24 07/15/24 Range/Units 05:59 05:59 05:59 RBC 3.01 L (3.80-5.40) m/uL Hgb 8.5 L (11.4-16.0) gm/dL Hct 26.5 L (34.0-46.0) % APTT (22.0-30.0) sec Sodium 136 L (137-145) mmol/L Potassium 5.2 H (3.5-5.1) mmol/L Chloride 108 H (98-107) mmol/L Carbon Dioxide 21 L (22-30) mmol/L BUN 58 H (7-17) mg/dL Creatinine 1.66 H (0.52-1.04) mg/dL Glucose 163 H (74-99) mg/dL POC Glucose (mg/dL) 175 H (70-110) mg/dL Calcium (8.4-10.2) mg/dL Magnesium (1.6-2.3) mg/dL Total Bilirubin (0.2-1.3) mg/dL AST 13 L (14-36) U/L Total Protein 5.5 L (6.3-8.2) g/dL Albumin 2.6 L (3.5-5.0) g/dL 07/15/24 07/15/24 Range/Units 12:20 12:51 RBC (3.80-5.40) m/uL Hgb (11.4-16.0) gm/dL Hct (34.0-46.0) % APTT (22.0-30.0) sec Sodium (137-145) mmol/L Potassium (3.5-5.1) mmol/L Chloride (98-107) mmol/L Carbon Dioxide (22-30) mmol/L BUN (7-17) mg/dL Creatinine (0.52-1.04) mg/dL Glucose (74-99) mg/dL POC Glucose (mg/dL) 67 L 115 H (70-110) mg/dL Calcium (8.4-10.2) mg/dL Magnesium (1.6-2.3) mg/dL Total Bilirubin (0.2-1.3) mg/dL AST (14-36) U/L Total Protein (6.3-8.2) g/dL Albumin (3.5-5.0) g/dL
[2024-07-15 17:21] LABS: Glucose,Whole Blood 182 mg/dL (70-110)
[2024-07-15 20:29] LABS: Glucose,Whole Blood 102 mg/dL (70-110)
[2024-07-15] MEDS: FUROSEMIDE 10 MG/ML 2 ML VIAL IV SCH (21:26)
[2024-07-16 06:06] LABS: Glucose,Whole Blood 76 mg/dL (70-110)
[2024-07-16] MEDS: ALBUTEROL NEBULIZED 2.5 MG/3 ML INHALATION PRN (08:55)
[2024-07-16 08:57] LABS: BUN/Creat Ratio 29.95 Ratio (12.00-20.00); Blood Urea Nitrogen 59.9 mg/dL (9.0-27.0); Calcium 8.6 mg/dL (8.7-10.3); Carbon Dioxide 24.2 mmol/L (21.6-31.8); Chloride 109 mmol/L (96-109); Glucose 61 mg/dL (70-110); Magnesium 2.2 mg/dL (1.5-2.4); Potassium 5.3 mmol/L (3.5-5.5); Sodium 141 mmol/L (135-145)
--- NOTE | 2024-07-16 11:57 | P.PN ---
Subjective Progress Note Date: 07/16/24 Principal diagnosis: 82-year-old female with PMH of diastolic CHF, type II DM, COPD not on home oxygen, HTN, HLD, hypothyroidism who presented to the ED with worsening lower extremity swelling and shortness of breath, orthopnea, patient has not been taking her home Lasix due to difficulty ambulating to the restroom. Patient does not follow with a instructional paraprofessional due to difficulties with transportation. Chronic lower extremity wounds present, there is a visiting nurse who takes care of it at home. Patient's chest x-ray showed questionable patchy right upper lobe opacity atelectasis versus pneumonia, small left pleural effusion, viral panel was negative, patient was admitted for management of acute on chronic CHF exacerbation, cardiology consult, TTE, started on IV Lasix. No need to repeat TTE per cardiology. Patient seen and examined. She reports she did not take her diuretics as this made her urinate and she had to go to the bathroom. Her creatinine is noted to be 2.0 this morning. No nausea vomiting reported Objective - Vital Signs Vital signs: Vital Signs Temp 97.9 F 07/16/24 07:00 Pulse 80 07/16/24 09:04 Resp 16 07/16/24 09:04 BP 102/58 07/16/24 07:00 Pulse Ox 95 07/16/24 08:58 FiO2 Intake & Output 07/15/24 07/16/24 07/16/24 18:59 06:59 18:59 Intake Total 586 354 Output Total 1400 1550 Balance -814 -1196 Weight 102 kg Intake: Oral 586 354 Output: Urine 1400 1550 Other: Voiding Method External Catheter - Exam General: [nontoxic], [no distress], [appears at stated age] female, elderly, appears stated age Derm: [warm], [dry] Head: [atraumatic], [normocephalic], [symmetric] Eyes: [EOMI], [no lid lag], [anicteric sclera] Mouth: [no lip lesion], [mucus membranes moist] Cardiovascular: [S1S2 reg], [no murmur] Lungs: [CTA bilateral], [no rhonchi, no rales] , [no accessory muscle use] Abdominal: [soft], [ nontender to palpation], [no guarding], [no appreciable organomegaly] Ext: [Lateral lower extremity edema, dressing intact, bilateral lower extremity wounds/ulceration Neuro: [ CN II-XI grossly intact], [no focal neuro deficits] Psych: [Alert], [oriented], [appropriate affect] - Labs CBC & Chem 7: 07/15/24 05:59 07/16/24 04:18 Labs: Abnormal Lab Results - Last 24 Hours (Table) 07/15/24 07/15/24 07/15/24 Range/Units 12:20 12:51 17:18 BUN (9.0-27.0) mg/dL Creatinine (0.6-1.5) mg/dL Est GFR (CKD-EPI) (>=60) BUN/Creatinine Ratio (12.00-20.00) Ratio Glucose (70-110) mg/dL POC Glucose (mg/dL) 67 L 115 H 182 H (70-110) mg/dL Calcium (8.7-10.3) mg/dL 07/16/24 Range/Units 04:18 BUN 59.9 H (9.0-27.0) mg/dL Creatinine 2.0 H (0.6-1.5) mg/dL Est GFR (CKD-EPI) 24 L (>=60) BUN/Creatinine Ratio 29.95 H (12.00-20.00) Ratio Glucose 61 L (70-110) mg/dL POC Glucose (mg/dL) (70-110) mg/dL Calcium 8.6 L (8.7-10.3) mg/dL Assessment and Plan Assessment: Acute on chronic HFpEF exacerbation secondary to medication noncompliance due to mobility issues HUBER on CKD stage III secondary to diuresis -Hold diuretics given her creatinine of 2.0. -I would plan on monitoring the patient until her renal function improves. -As per cardiology no need to repeat TTE Hypomagnesemia Replace and monitor Hypocalcemia Resolved status post IV calcium Shubham LE and sacral ulcers Wound care consult Dressings changed in the ER Chronic: Insulin-dependent diabetes mellitus type 2 Continue NovoLog Mix 70-30 15 units subcu twice daily with meals Continue Gabapentin for neuropathy Accu-Cheks per [facility] protocol Hypoglycemia precautions Normocytic anemia, at baseline HTN Continue Coreg 3.125 mg twice daily and Entresto HLD Continue Lipitor 40 mg p.o. at bedtime Hypothyroidism Continue Synthroid 100 mcg daily VTE prophylaxis: Heparin Anticipated discharge place: Home with home health Anticipated discharge time: 24 to 48 hours
[2024-07-16 12:08] LABS: Glucose,Whole Blood 75 mg/dL (70-110)
--- NOTE | 2024-07-16 14:00 | P.PN ---
Subjective HISTORY OF PRESENT ILLNESS: This is a 83-year-old female with a past medical history significant for hypertension, hyperlipidemia, diabetes, and congestive heart failure. Patient does not follow with a bakelite molder. We have been asked to see the patient in consultation for congestive heart failure. Patient examined at the bedside. The patient was recently hospitalized in May 2024 due to congestive heart failure. Patient presented to the hospital with a chief complaint of shortness of breath. Patient denies having any chest pain or pressure. She was found to be in CHF. Patient was started on IV Lasix 40 mg twice a day. Patient reports improvement in her shortness of breath this morning. Patient states that she has not been taking her Lasix at home because it made her urinate too frequently. Patient does have HUBER this morning with a creatinine of 1.66. DIAGNOSTICS: - EKG reveals sinus mechanism with no signs of acute ischemia - Chest xray questionable patchy right upper lobe opacity which could reflect atelectasis and/or pneumonia. Small left pleural effusion. - Laboratory data: WBC 4.9. Hemoglobin 8.5. Platelet count 237. Sodium 136. Potassium 5.2. BUN 58. Creatinine 1.66. Magnesium 1.5. proBNP 1550. - Current home cardiac medications include atorvastatin 40 mg at night, Lasix 40 mg twice a day, carvedilol 3.125 mg twice a day, Entresto 24-26 mg twice a day, and Zaroxolyn 5 mg daily. - Most recent echocardiogram obtained in May 2024 revealed ejection fraction 55 to 60%, mild MR, mild TR - Cardiac catheterization history: Unknown 07/16/2024 Patient examined this morning the bedside. Patient currently denies any chest pain or pressure. She denies any shortness of breath. Patient's creatinine increased to 2.0 today. Her Lasix has been discontinued. PHYSICAL EXAM: VITAL SIGNS: Reviewed. GENERAL: Well-developed in no acute distress. HEENT: Head is normocephalic. Pupils are equal, round. Sclerae anicteric. Mucous membranes of the mouth are moist. Neck supple. No JVD or thyromegaly LUNGS: Respirations even and unlabored. Lungs essentially clear to auscultation bilaterally. HEART: Regular rate and rhythm. S1 and S2 heard. Systolic murmur noted ABDOMEN: Soft. Nondistended. Nontender. EXTREMITIES: Normal range of motion. No clubbing or cyanosis. Peripheral pulses intact. Bilateral lower extremity edema noted. Dressing to left lower extremity. Right lower extremity with ulcerations noted and erythema. NEUROLOGIC: Awake and alert. Oriented x 3. ASSESSMENT: Shortness of breath Acute on chronic heart failure with preserved EF Medication noncompliance, patient not taking her Lasix at home due to increased urination Acute on chronic kidney disease Hypertension Hyperlipidemia Right internal carotid artery stenosis 50 to 70% Diabetes Lower extremity ulcers PLAN: No need to repeat echocardiogram as this was performed in May 2024 Lasix discontinued secondary to worsening kidney function. Repeat in AM. Discontinue Entresto as patient has preserved LV systolic function No further inpatient recommendations from a cardiac standpoint We will sign off. Please reconsult if needed. Nurse practitioner note has been reviewed by physician. Signing provider agrees with the documented findings, assessment, and plan of care documented by CHARTERED FINANCIAL ANALYST as a scribe. Objective - Vital Signs Vital signs: Vital Signs Temp 97.9 F 07/16/24 07:00 Pulse 80 07/16/24 09:04 Resp 16 07/16/24 09:04 BP 102/58 07/16/24 07:00 Pulse Ox 95 07/16/24 08:58 FiO2 Intake & Output 07/15/24 07/16/24 07/16/24 18:59 06:59 18:59 Intake Total 586 354 Output Total 1400 1550 Balance -814 -1196 Weight 102 kg Intake: Oral 586 354 Output: Urine 1400 1550 Other: Voiding Method External Catheter - Labs CBC & Chem 7: 07/15/24 05:59 07/16/24 04:18 Labs: Abnormal Lab Results - Last 24 Hours (Table) 07/15/24 07/16/24 Range/Units 17:18 04:18 BUN 59.9 H (9.0-27.0) mg/dL Creatinine 2.0 H (0.6-1.5) mg/dL Est GFR (CKD-EPI) 24 L (>=60) BUN/Creatinine Ratio 29.95 H (12.00-20.00) Ratio Glucose 61 L (70-110) mg/dL POC Glucose (mg/dL) 182 H (70-110) mg/dL Calcium 8.6 L (8.7-10.3) mg/dL
[2024-07-16 17:30] LABS: Glucose,Whole Blood 255 mg/dL (70-110)
[2024-07-16 20:39] LABS: Glucose,Whole Blood 167 mg/dL (70-110)
[2024-07-16] MEDS: bisacodyL 5 MG TABLET.DR PO PRN (21:34)
[2024-07-17 06:00] LABS: Glucose,Whole Blood 170 mg/dL (70-110)
[2024-07-17 09:52] LABS: Basophils # (A) 0.05 X 10*3/uL (0.00-0.10); Basophils % (A) 0.7 %; Eosinophils # (A) 0.25 X 10*3/uL (0.04-0.35); Eosinophils % (A) 3.4 %; HCT 27.3 % (37.2-46.3); HGB 8.4 g/dL (12.0-15.0); Lymphocytes # (A) 1.31 X 10*3/uL (0.90-5.00); MCH 26.8 pg (27.0-32.0); MCHC 30.8 g/dL (32.0-37.0); MCV 87.2 FL (80.0-97.0); Mean Platelet Volume 11.2 FL (9.5-12.2); Monocytes % (A) 12.3 %; NRBC Per 100 WBC 0 X 10*3/uL (0.00-0.01); Neutrophils # (A) 4.77 X 10*3/uL (1.80-7.70); Neutrophils % (A) 65.5 %; Platelet Count 261 X 10*3/uL (140-440); RBC 3.13 X 10*6/uL (4.10-5.20); RDW 14.4 % (11.5-14.5); WBC 7.29 X 10*3/uL (4.50-10.00)
[2024-07-17 10:39] LABS: Magnesium 2.1 mg/dL (1.5-2.4)
[2024-07-17 10:55] LABS: BUN/Creat Ratio 33.47 Ratio (12.00-20.00); Blood Urea Nitrogen 56.9 mg/dL (9.0-27.0); Chloride 106 mmol/L (96-109); Glucose 181 mg/dL (70-110); Potassium 5.5 mmol/L (3.5-5.5); Sodium 140 mmol/L (135-145)
[2024-07-17 10:56] LABS: Calcium 8.6 mg/dL (8.7-10.3); Carbon Dioxide 23.8 mmol/L (21.6-31.8)
--- NOTE | 2024-07-17 11:48 | P.PN ---
Subjective Progress Note Date: 07/17/24 Principal diagnosis: 82-year-old female with PMH of diastolic CHF, type II DM, COPD not on home oxygen, HTN, HLD, hypothyroidism who presented to the ED with worsening lower extremity swelling and shortness of breath, orthopnea, patient has not been taking her home Lasix due to difficulty ambulating to the restroom. Patient does not follow with a assembler erector due to difficulties with transportation. Chronic lower extremity wounds present, there is a visiting nurse who takes care of it at home. Patient's chest x-ray showed questionable patchy right upper lobe opacity atelectasis versus pneumonia, small left pleural effusion, viral panel was negative, patient was admitted for management of acute on chronic CHF exacerbation, cardiology consult, TTE, started on IV Lasix. No need to repeat TTE per cardiology. Patient seen and examined. Renal function is improving she is on room air. She expresses that she feels too weak to go home and is now requesting rehab placement. No nausea vomiting reported Objective - Vital Signs Vital signs: Vital Signs Temp 98.9 F 07/17/24 07:15 Pulse 62 07/17/24 07:15 Resp 15 07/17/24 07:15 BP 137/62 07/17/24 07:15 Pulse Ox 92 L 07/17/24 07:15 FiO2 Intake & Output 07/16/24 07/17/24 07/17/24 18:59 06:59 18:59 Intake Total 1119 240 Output Total 2049 Balance -931 240 Weight 102 kg 99 kg Intake: Oral 1119 240 Output: Urine 2049 Other: Voiding Method External Catheter External Catheter - Exam General: [nontoxic], [no distress], [appears at stated age] female, elderly, appears stated age Derm: [warm], [dry] Head: [atraumatic], [normocephalic], [symmetric] Eyes: [EOMI], [no lid lag], [anicteric sclera] Mouth: [no lip lesion], [mucus membranes moist] Cardiovascular: [S1S2 reg], [no murmur] Lungs: [CTA bilateral], [no rhonchi, no rales] , [no accessory muscle use] Abdominal: [soft], [ nontender to palpation], [no guarding], [no appreciable organomegaly] Ext: [Lateral lower extremity edema, dressing intact, bilateral lower extremity wounds/ulceration Neuro: [ CN II-XI grossly intact], [no focal neuro deficits] Psych: [Alert], [oriented], [appropriate affect] - Labs CBC & Chem 7: 07/17/24 03:50 07/17/24 03:50 Labs: Abnormal Lab Results - Last 24 Hours (Table) 07/16/24 07/16/24 07/17/24 Range/Units 17:27 20:35 03:50 RBC (4.10-5.20) X 10*6/uL Hgb (12.0-15.0) g/dL Hct (37.2-46.3) % MCH (27.0-32.0) pg MCHC (32.0-37.0) g/dL BUN 56.9 H (9.0-27.0) mg/dL Creatinine 1.7 H (0.6-1.5) mg/dL Est GFR (CKD-EPI) 30 L (>=60) BUN/Creatinine Ratio 33.47 H (12.00-20.00) Ratio Glucose 181 H (70-110) mg/dL POC Glucose (mg/dL) 255 H 167 H (70-110) mg/dL Calcium 8.6 L (8.7-10.3) mg/dL 07/17/24 07/17/24 Range/Units 03:50 05:54 RBC 3.13 L (4.10-5.20) X 10*6/uL Hgb 8.4 L (12.0-15.0) g/dL Hct 27.3 L (37.2-46.3) % MCH 26.8 L (27.0-32.0) pg MCHC 30.8 L (32.0-37.0) g/dL BUN (9.0-27.0) mg/dL Creatinine (0.6-1.5) mg/dL Est GFR (CKD-EPI) (>=60) BUN/Creatinine Ratio (12.00-20.00) Ratio Glucose (70-110) mg/dL POC Glucose (mg/dL) 170 H (70-110) mg/dL Calcium (8.7-10.3) mg/dL Assessment and Plan Assessment: Acute on chronic HFpEF exacerbation secondary to medication noncompliance due to mobility issues HUBER on CKD stage III secondary to diuresis -Renal function is improving restart Lasix 40 mg twice daily tomorrow and will restart metolazone thereafter Hypomagnesemia Solved Hypocalcemia Resolve Shubham LE and sacral ulcers Wound care consult Continue local wound care Chronic: Insulin-dependent diabetes mellitus type 2 Continue NovoLog Mix 70-30 15 units subcu twice daily with meals Continue Gabapentin for neuropathy Accu-Cheks per [facility] protocol Hypoglycemia precautions Normocytic anemia, at baseline HTN Continue Coreg 3.125 mg twice daily and Entresto HLD Continue Lipitor 40 mg p.o. at bedtime Hypothyroidism Continue Synthroid 100 mcg daily VTE prophylaxis: Heparin Anticipated discharge place: snf Anticipated discharge time: Sufficiently medically acceptable for discharge plan raisa
[2024-07-17 12:19] LABS: Glucose,Whole Blood 112 mg/dL (70-110)
[2024-07-17 12:29] VITALS: BMI 38.6
[2024-07-17 17:37] LABS: Glucose,Whole Blood 125 mg/dL (70-110)
[2024-07-17] MEDS: ACETAMINOPHEN TAB 325 MG TAB PO PRN (18:12)
[2024-07-17 20:18] LABS: Glucose,Whole Blood 160 mg/dL (70-110)
[2024-07-18 05:51] LABS: Glucose,Whole Blood 96 mg/dL (70-110)
[2024-07-18] MEDS: FUROSEMIDE 40 MG TAB PO SCH (08:37)
[2024-07-18 12:17] LABS: Glucose,Whole Blood 189 mg/dL (70-110)
--- NOTE | 2024-07-18 12:53 | P.PN ---
Subjective Progress Note Date: 07/18/24 Principal diagnosis: 82-year-old female with PMH of diastolic CHF, type II DM, COPD not on home oxygen, HTN, HLD, hypothyroidism who presented to the ED with worsening lower extremity swelling and shortness of breath, orthopnea, patient has not been taking her home Lasix due to difficulty ambulating to the restroom. Patient does not follow with a crop ranch hand due to difficulties with transportation. Chronic lower extremity wounds present, there is a visiting nurse who takes care of it at home. Patient's chest x-ray showed questionable patchy right upper lobe opacity atelectasis versus pneumonia, small left pleural effusion, viral panel was negative, patient was admitted for management of acute on chronic CHF exacerbation, cardiology consult, TTE, started on IV Lasix. No need to repeat TTE per cardiology. She then reported that she was too weak to go home and had requested placement on July 16 Patient seen and examined. She denies any complaints at this time, no nausea vomiting reported Objective - Vital Signs Vital signs: Vital Signs Temp 97.6 F 07/18/24 07:05 Pulse 64 07/18/24 07:05 Resp 18 07/18/24 08:00 BP 113/60 07/18/24 07:05 Pulse Ox 93 L 07/18/24 07:05 FiO2 Intake & Output 07/17/24 07/18/24 07/18/24 18:59 06:59 18:59 Intake Total 476 200 Output Total 500 Balance -24 200 Weight 99 kg 99.1 kg Intake: Oral 476 200 Output: Urine 500 Other: Voiding Method External Catheter External Catheter External Catheter - Exam General: [nontoxic], [no distress], [appears at stated age] female, elderly, appears stated age Derm: [warm], [dry] Head: [atraumatic], [normocephalic], [symmetric] Eyes: [EOMI], [no lid lag], [anicteric sclera] Mouth: [no lip lesion], [mucus membranes moist] Cardiovascular: [S1S2 reg], [no murmur] Lungs: [CTA bilateral], [no rhonchi, no rales] , [no accessory muscle use] Abdominal: [soft], [ nontender to palpation], [no guarding], [no appreciable organomegaly] Ext: [Lateral lower extremity edema, dressing intact, bilateral lower extremity wounds/ulceration Neuro: [ CN II-XI grossly intact], [no focal neuro deficits] Psych: [Alert], [oriented], [appropriate affect] - Labs CBC & Chem 7: 07/17/24 03:50 07/17/24 03:50 Labs: Abnormal Lab Results - Last 24 Hours (Table) 07/17/24 07/17/24 07/18/24 Range/Units 17:34 20:16 12:15 POC Glucose (mg/dL) 125 H 160 H 189 H (70-110) mg/dL Assessment and Plan Assessment: Acute on chronic HFpEF exacerbation secondary to medication noncompliance due to mobility issues HUBER on CKD stage III secondary to diuresis -Morning lab work from today continue Lasix 40 mg twice daily hold metolazone at this time and would likely restart tomorrow Hypomagnesemia Solved Hypocalcemia Resolve Shubham LE and sacral ulcers Wound care consult Continue local wound care Chronic: Insulin-dependent diabetes mellitus type 2 Continue NovoLog Mix 70-30 15 units subcu twice daily with meals Continue Gabapentin for neuropathy Accu-Cheks per [facility] protocol Hypoglycemia precautions Normocytic anemia, at baseline HTN Continue Coreg 3.125 mg twice daily and Entresto HLD Continue Lipitor 40 mg p.o. at bedtime Hypothyroidism Continue Synthroid 100 mcg daily VTE prophylaxis: Heparin Anticipated discharge place: snf Anticipated discharge time: Sufficiently medically acceptable for discharge planning
[2024-07-18 17:10] LABS: Glucose,Whole Blood 199 mg/dL (70-110)
[2024-07-18 23:11] LABS: Blood Urea Nitrogen 54.4 mg/dL (9.0-27.0); Chloride 105 mmol/L (96-109); Glucose 194 mg/dL (70-110); Potassium 5.5 mmol/L (3.5-5.5); Sodium 140 mmol/L (135-145)
[2024-07-19 08:49] LABS: BUN/Creat Ratio 31.68 Ratio (12.00-20.00); Blood Urea Nitrogen 60.2 mg/dL (9.0-27.0); Calcium 8.8 mg/dL (8.7-10.3); Carbon Dioxide 26.2 mmol/L (21.6-31.8); Chloride 107 mmol/L (96-109); Glucose 123 mg/dL (70-110); Potassium 5.2 mmol/L (3.5-5.5); Sodium 141 mmol/L (135-145)
[2024-07-19 12:18] LABS: Glucose,Whole Blood 117 mg/dL (70-110)
--- NOTE | 2024-07-19 14:27 | P.PN ---
Subjective Progress Note Date: 07/19/24 Principal diagnosis: sob 82-year-old female with PMH of diastolic CHF, type II DM, COPD not on home oxygen, HTN, HLD, hypothyroidism who presented to the ED with worsening lower extremity swelling and shortness of breath, orthopnea, patient has not been taking her home Lasix due to difficulty ambulating to the restroom. Patient does not follow with a process coach due to difficulties with transportation. Chronic lower extremity wounds present, there is a visiting nurse who takes care of it at home. Patient's chest x-ray showed questionable patchy right upper lo be opacity atelectasis versus pneumonia, small left pleural effusion, viral panel was negative, patient was admitted for management of acute on chronic CHF exacerbation, cardiology consult, TTE, started on IV Lasix. No need to repeat TTE per cardiology. She then reported that she was too weak to go home and had requested placement on July 1607/19 Doing well. No complaints. Objective - Vital Signs Vital signs: Vital Signs Temp 97.6 F 07/19/24 07:00 Pulse 58 L 07/19/24 07:00 Resp 17 07/19/24 07:00 BP 180/71 07/19/24 07:00 Pulse Ox 96 07/19/24 07:00 FiO2 Intake & Output 07/18/24 07/19/24 07/19/24 18:59 06:59 18:59 Intake Total 318 118 Output Total 1200 Balance 318 -1200 118 Weight 98.5 kg Intake: Oral 318 118 Output: Urine 1200 Other: Voiding Method External Catheter Diaper External Catheter External Catheter # Voids 2 # Bowel Movements 1 - Exam General: [nontoxic], [no distress], [appears at stated age] female, elderly, appears stated age Derm: [warm], [dry] Head: [atraumatic], [normocephalic], [symmetric] Eyes: [EOMI], [no lid lag], [anicteric sclera] Mouth: [no lip lesion], [mucus membranes moist] Cardiovascular: [S1S2 reg], [no murmur] Lungs: [CTA bilateral], [no rhonchi, no rales] , [no accessory muscle use] Abdominal: [soft], [ nontender to palpation], [no guarding], [no appreciable organomegaly] Ext: [Lateral lower extremity edema, dressing intact, bilateral lower extremity wounds/ulceration Neuro: [ CN II-XI grossly intact], [no focal neuro deficits] Psych: [Alert], [oriented], [appropriate affect] - Labs CBC & Chem 7: 07/17/24 03:50 07/19/24 05:05 Labs: Abnormal Lab Results - Last 24 Hours (Table) 07/18/24 07/18/24 07/19/24 Range/Units 12:18 17:08 05:05 BUN 54.4 H 60.2 H (9.0-27.0) mg/dL Creatinine 1.7 H 1.9 H (0.6-1.5) mg/dL Est GFR (CKD-EPI) 30 L 26 L (>=60) BUN/Creatinine Ratio 32.00 H 31.68 H (12.00-20.00) Ratio Glucose 194 H 123 H (70-110) mg/dL POC Glucose (mg/dL) 199 H (70-110) mg/dL 07/19/24 Range/Units 12:17 BUN (9.0-27.0) mg/dL Creatinine (0.6-1.5) mg/dL Est GFR (CKD-EPI) (>=60) BUN/Creatinine Ratio (12.00-20.00) Ratio Glucose (70-110) mg/dL POC Glucose (mg/dL) 117 H (70-110) mg/dL Assessment and Plan Plan: Acute on chronic HFpEF exacerbation secondary to medication noncompliance due to mobility issues HUBER on CKD stage III secondary to diuresis -Continue Lasix 40 mg twice daily hold metolazone at this time and would likely restart tomorrow Hypomagnesemia Solved Hypocalcemia Resolve Shubham LE and sacral ulcers Wound care consult Continue local wound care Chronic: Insulin-dependent diabetes mellitus type 2 Continue NovoLog Mix 70-30 15 units subcu twice daily with meals Continue Gabapentin for neuropathy Accu-Cheks per [facility] protocol Hypoglycemia precautions Normocytic anemia, at baseline HTN Continue Coreg 3.125 mg twice daily and Entresto HLD Continue Lipitor 40 mg p.o. at bedtime Hypothyroidism Continue Synthroid 100 mcg daily VTE prophylaxis: Heparin Anticipated discharge place: snf Anticipated discharge time: awaiting insurance prior auth
[2024-07-19 17:18] LABS: Glucose,Whole Blood 172 mg/dL (70-110)
[2024-07-19 20:28] LABS: Glucose,Whole Blood 198 mg/dL (70-110)
[2024-07-20 06:34] LABS: Glucose,Whole Blood 109 mg/dL (70-110)
[2024-07-20 08:15] VITALS: PULSE 63; RESP 16
[2024-07-20 10:57] LABS: BUN/Creat Ratio 35.39 Ratio (12.00-20.00); Blood Urea Nitrogen 63.7 mg/dL (9.0-27.0); Carbon Dioxide 28.4 mmol/L (21.6-31.8); Chloride 104 mmol/L (96-109); Glucose 116 mg/dL (70-110); Potassium 4.8 mmol/L (3.5-5.5); Sodium 143 mmol/L (135-145)
[2024-07-20 12:04] LABS: Glucose,Whole Blood 96 mg/dL (70-110)
--- NOTE | 2024-07-20 14:00 | P.DS ---
Providers Date of admission: 07/14/24 20:27 Attending physician: Markus Mckeon MD Primary care physician: Stated None Hospital Course: Discharge Diagnosis: Acute on chronic HFpEF exacerbation secondary to medication noncompliance due to mobility issues HUBER on CKD stage III secondary to diuresis Shubham LE and sacral ulcers Hospital Course: 82-year-old female with PMH of diastolic CHF, type II DM, COPD not on home oxygen, HTN, HLD, hypothyroidism who presented to the ED with worsening lower extremity swelling and shortness of breath, orthopnea, patient has not been taking her home Lasix due to difficulty ambulating to the restroom. Patient does not follow with a cartridge assembling machine adjuster due to difficulties with transportation. Chronic lower extremity wounds present, there is a visiting nurse who takes care of it at home. Patient's chest x-ray showed questionable patchy right upper lobe opacity atelectasis versus pneumonia, small left pleural effusion, viral panel was negative, patient was admitted for management of acute on chronic CHF exacerbation, cardiology consult, TTE, started on IV Lasix. No need to repeat TTE per cardiology. She then reported that she was too weak to go home and had requested placement on July 16. Was accepted to SNF and discharged since 07/20, kidney function stable, patient will follow-up with primary care physician, continued on home medications Patient seen and examined at bedside Vital signs reviewed and stable. General: [nontoxic], [no distress], [appears at stated age] Derm: [warm], [dry] Head: [atraumatic], [normocephalic], [symmetric] Eyes: [EOMI], [no lid lag], [anicteric sclera] Mouth: [no lip lesion], [mucus membranes moist] Cardiovascular: [S1S2 reg], [no murmur] Lungs: [CTA bilateral], [no rhonchi, no rales] , [no accessory muscle use] Abdominal: [soft], [ nontender to palpation], [no guarding], [no appreciable organomegaly] Ext: [no gross muscle atrophy], [no edema], [no contractures] Neuro: [ CN II-XI grossly intact], [no focal neuro deficits] Psych: [Alert], [oriented], [appropriate affect] A total of 40 minutes of time were spent preparing this complex discharge summary. Patient was discharged on 07/20/2024. Patient Condition at Discharge: Stable Plan - Discharge Summary New Discharge Prescriptions: Continue Levothyroxine Sodium 100 mcg PO DAILY Atorvastatin Calcium [Lipitor] 40 mg PO HS Insulin NPH Hum/Reg Insulin Hm [NovoLIN 70-30 Flexpen] 15 units SQ BID Gabapentin [Neurontin] 100 mg PO BID Sacubitril/Valsartan [Entresto 24 mg-26 mg Tablet] 1 tab PO BID Furosemide [Lasix] 40 mg PO BID carvediloL [Coreg] 3.125 mg PO BID metOLazone [Zaroxolyn] 5 mg PO DAILY Albuterol Inhaler [Ventolin Hfa Inhaler] 2 puff INHALATION RT-Q4H PRN PRN Reason: Shortness Of Breath Discharge Medication List Levothyroxine Sodium 100 mcg PO DAILY 10/02/19 [History] Atorvastatin Calcium [Lipitor] 40 mg PO HS 04/18/23 [History] Furosemide [Lasix] 40 mg PO BID 04/18/23 [History] carvediloL [Coreg] 3.125 mg PO BID 04/18/23 [History] Insulin NPH Hum/Reg Insulin Hm [NovoLIN 70-30 Flexpen] 15 units SQ BID 05/17/24 [History] Albuterol Inhaler [Ventolin Hfa Inhaler] 2 puff INHALATION RT-Q4H PRN 07/14/24 [History] Gabapentin [Neurontin] 100 mg PO BID 07/14/24 [History] Sacubitril/Valsartan [Entresto 24 mg-26 mg Tablet] 1 tab PO BID 07/14/24 [History] metOLazone [Zaroxolyn] 5 mg PO DAILY 07/14/24 [History] Follow up Appointment(s)/Referral(s): [facility] [REFERRING] - As Needed None,Stated [Primary Care Provider] - 1-2 days Residential Home,Health [NON-STAFF] - As Needed Patient Instructions/Handouts: Heart Failure (DC), Low-Sodium Diet (DC) Activity/Diet/Wound Care/Special Instructions: Please, follow up with your primary care physician. Check your weight daily. Sodium restriction 2g/day Discharge Disposition: TRANSFER TO SNF/ECF
[2024-07-20 15:21] VITALS: BP 160/76; TEMP 97.7
== END 2024-07-20 15:30 ==
LOC: EC 18:15 → 6NMEDSUR 20:27
PROVIDERS: ADMIT Internal Medicine; ATTEND Internal Medicine
DX: I13.0 Hypertensive heart and chronic kidney disease with heart failure and stage 1 through stage 4 chronic kidney disease, or unspecified chronic kidney disease (principal); I50.33 Acute on chronic diastolic (congestive) heart failure; N18.30 Chronic kidney disease, stage 3 unspecified; N17.9 Acute kidney failure, unspecified; L97.929 Non-pressure chronic ulcer of unspecified part of left lower leg with unspecified severity; L97.919 Non-pressure chronic ulcer of unspecified part of right lower leg with unspecified severity; L89.152 Pressure ulcer of sacral region, stage 2; Z91.148 Patient's other noncompliance with medication regimen for other reason; E83.42 Hypomagnesemia; J44.9 Chronic obstructive pulmonary disease, unspecified; E78.5 Hyperlipidemia, unspecified; K21.9 Gastro-esophageal reflux disease without esophagitis; E03.9 Hypothyroidism, unspecified; E11.22 Type 2 diabetes mellitus with diabetic chronic kidney disease; E11.40 Type 2 diabetes mellitus with diabetic neuropathy, unspecified; I65.21 Occlusion and stenosis of right carotid artery; E83.51 Hypocalcemia; D63.1 Anemia in chronic kidney disease; Z87.891 Personal history of nicotine dependence; Z79.890 Hormone replacement therapy; Z79.899 Other long term (current) drug therapy; Z79.4 Long term (current) use of insulin; Z88.0 Allergy status to penicillin
CPT/HCPCS: 96376 ×2; 96372 ×7; 96365; 96375; 99285; 36415; 94640; 94760; 93005; 97530; 97162; 83880; 80053 ×2; 80048 ×5; 83735 ×4; 84132; 85025 ×3; 85610; 85730; 81003; 87636; 71046; G0378 ×7; J1644 ×7; J1940 ×4; J3475; J0613

== ENCOUNTER 2024-11-02 18:46 | Inpatient (IN) | payer MEDICARE ==
--- NOTE | 2024-11-02 19:11 | ED ---
Weakness HPI - General Chief complaint: Weakness Stated complaint: weakness Time Seen by Provider: 11/02/24 18:58 Source: patient, EMS, RN notes reviewed, old records reviewed Mode of arrival: EMS Limitations: no limitations - History of Present Illness Initial comments: This is an 84 female to the ER. This patient presents today for evaluation regards to weakness debility bilateral leg weakness increasing leg swelling and edema with history of chronic edema and cellulitis with venous stasis, shortness of breath and generally not feeling well, patient has been unable to get out of his chair for over 2 days MD Complaint: generalized weakness, lack of energy, difficulty walking -: days(s) (2) Quality: constant Consistency: constant Improves with: none Worsens with: none Context: recent illness, history of similar Associated Symptoms: confusion, shortness of breath - Related Data Home Medications Medication Instructions Recorded Confirmed Levothyroxine Sodium 100 mcg PO DAILY@1200 10/02/19 11/03/24 Atorvastatin Calcium [Lipitor] 40 mg PO HS 04/18/23 11/03/24 carvediloL [Coreg] 3.125 mg PO BID 04/18/23 11/03/24 Insulin NPH Hum/Reg Insulin Hm 15 units SQ W/SUPPER 05/17/24 11/03/24 [NovoLIN 70-30 Flexpen] Albuterol Inhaler [Ventolin Hfa 2 puff INHALATION RT-Q4H PRN 07/14/24 11/03/24 Inhaler] Sacubitril/Valsartan [Entresto 24 1 tab PO BID 07/14/24 11/03/24 mg-26 mg Tablet] Previous Rx's Medication Instructions Recorded Acetaminophen Tab [Tylenol] 650 mg PO Q6HR PRN tab 11/08/24 Furosemide [Lasix] 40 mg PO DAILY #0 11/08/24 NIFEdipine XL [Procardia XL] 60 mg PO DAILY tab 11/08/24 metOLazone [Zaroxolyn] 5 mg PO DAILY tab 11/08/24 Allergies Allergy/AdvReac Type Severity Reaction Status Date / Time Penicillins Allergy Rash/Hives Verified 11/03/24 09:10 Review of Systems ROS Statement: Those systems with pertinent positive or pertinent negative responses have been documented in the HPI. ROS Other: All systems not noted in ROS Statement are negative. Past Medical History Past Medical History: Heart Failure, COPD, Diabetes Mellitus, GERD/Reflux, Hyperlipidemia, Hypertension, Osteoarthritis (OA), Pneumonia, Skin Disorder, Thyroid Disorder Additional Past Medical History / Comment(s): IDDM type II, neuropathy L hand, bilateral lower leg venostasis/dermatitis/cellulitis/ulcers/edema, FALLS, weakness, arthritis bilateral knees, vertigo, hypothyroid History of Any Multi-Drug Resistant Organisms: None Reported Past Surgical History: Breast Surgery, Cholecystectomy, Tonsillectomy Additional Past Surgical History / Comment(s): Benign mass removed from neck, R breast benign biopsy, R eye laser surgery/pt cannot recall reason. Past Anesthesia/Blood Transfusion Reactions: No Reported Reaction Past Psychological History: No Psychological Hx Reported Smoking Status: Former smoker Past Alcohol Use History: None Reported Past Drug Use History: None Reported - Past Family History Father Family Medical History: Hypertension, Myocardial Infarction (VT) Additional Family Medical History / Comment(s): X3 [place], Mother Family Medical History: Cancer Additional Family Medical History / Comment(s): DIES FROM COLON [place] General Exam General appearance: alert, in no apparent distress Head exam: Present: atraumatic, normocephalic, normal inspection Eye exam: Present: normal appearance, PERRL, EOMI. Absent: scleral icterus, conjunctival injection, periorbital swelling ENT exam: Present: normal exam, mucous membranes moist Neck exam: Present: normal inspection. Absent: tenderness, meningismus, lymphadenopathy Respiratory exam: Present: normal lung sounds bilaterally. Absent: respiratory distress, wheezes, rales, rhonchi, stridor Cardiovascular Exam: Present: regular rate, normal rhythm, normal heart sounds. Absent: systolic murmur, diastolic murmur, rubs, gallop, clicks GI/Abdominal exam: Present: soft, normal bowel sounds. Absent: distended, tenderness, guarding, rebound, rigid Extremities exam: Present: normal inspection, full ROM, normal capillary refill. Absent: tenderness, pedal edema, joint swelling, calf tenderness Back exam: Present: normal inspection Neurological exam: Present: alert, oriented X3, CN II-XII intact Psychiatric exam: Present: normal affect, normal mood Skin exam: Present: warm, dry, intact, normal color. Absent: rash Course Vital Signs 11/02/24 11/02/24 11/03/24 18:53 21:00 00:00 Temperature 97.5 F L Pulse Rate 64 76 62 Respiratory 18 18 18 Rate Blood Pressure 202/76 143/82 188/74 O2 Sat by Pulse 97 98 95 Oximetry 11/03/24 11/03/24 11/03/24 02:00 04:00 06:00 Temperature 98.0 F 98.1 F Pulse Rate 68 56 L 54 L Respiratory 18 18 18 Rate Blood Pressure 184/86 185/88 159/56 O2 Sat by Pulse 95 95 95 Oximetry 11/03/24 11/03/24 11/03/24 07:00 09:00 11:15 Temperature 98.0 F Pulse Rate 61 62 62 Respiratory 18 18 18 Rate Blood Pressure 180/68 183/74 193/74 O2 Sat by Pulse 98 96 96 Oximetry - Reevaluation(s) Reevaluation #1: 11/02/24 19:32 Medical records reviewed Reevaluation #2: 11/02/24 21:31 Patient has no change in symptoms here in the ER Reevaluation #3: 11/02/24 21:31 Patient informed of results and questions answered Reevaluation #4: Was pt. sent in by a medical professional or institution (, PA, ORNAMENTAL RAIL INSTALLER, urgent care, hospital, or long-term...) When possible be specific @ -no Did you speak to anyone other than the patient for history (EMS, parent, family, police, friend...)? What history was obtained from this source @ -no Did you review nursing and triage notes (agree or disagree)? Why? @ -agree Are old charts reviewed (outside hosp., previous admission, EMS record, old EKG, old radiological studies, urgent care reports/EKG's, long-term records)? Report findings @ -yes Differential Diagnosis (chest pain, altered mental status, abdominal pain women, abdominal pain men, vaginal bleeding, weakness, fever, dyspnea, syncope, headache, dizziness, GI bleed, back pain, seizure, CVA, palpatations, mental health, musculoskeletal)? @ -prior EKG interpreted by me (3pts min.). @ -yes X-rays interpreted by me (1pt min.). @ -yes negative for acute disease CT interpreted by me (1pt min.). @ -no U/S interpreted by me (1pt. min.). @ -no What testing was considered but not performed or refused? (CT, X-rays, U/S, labs)? Why? @ -none What meds were considered but not given or refused? Why? @ -none Did you discuss the management of the patient with other professionals (professionals i.e. , PA, ORNAMENTAL RAIL INSTALLER, lab, RT, psych nurse, social media designer, lock tender, teacher, chief compliance officer, ed case manager)? Give summary @ -no Was smoking cessation discussed for >3mins.? @ -no Was critical care preformed (if so, how long)? @ -no Were there social determinants of health that impacted care today? How? (Homelessness, low income, unemployed, alcoholism, drug addiction, tra nsportation, low edu. Level, literacy, decrease access to med. care, long-term, rehab)? @ -none Was there de-escalation of care discussed even if they declined (Discuss DNR or withdrawal of care, Hospice)? DNR status @ -no What co-morbidities impacted this encounter? (DM, HTN, Smoking, COPD, CAD, Cance r, CVA, ARF, Chemo, Hep., AIDS, mental health diagnosis, sleep apnea, morbid obesity)? @ -none Was patient admitted / discharged? Hospital course, mention meds given and route, prescriptions, significant lab abnormalities, going to OR and other pertinent info. @ - 84 female to ER for evaluation of weakness and debility unable to get out of her chair for 2 days. Patient admitted for PT OT, patient does have significant lower extremity edema and swelling, will get diuresis Admitted Undiagnosed new problem with uncertain prognosis? @ -no Drug Therapy requiring intensive monitoring for toxicity (Heparin, Nitro, Insulin, Cardizem)? @ -no Were any procedures done? @ -no Diagnosis/symptom? @ -CHF lower extremity edema significant weakness Acute, or Chronic, or Acute on Chronic? @ -Acute Uncomplicated (without systemic symptoms) or Complicated (systemic symptoms)? @ -Complicated Side effects of treatment? @ -no Exacerbation, Progression, or Severe Exacerbation? @ -exacerbation Poses a threat to life or bodily function? How? (Chest pain, USA, VT, pneumonia, PE, COPD, DKA, ARF, appy, cholecystitis, CVA, Diverticulitis, Homicidal, Suicidal, threat to staff... and all critical care pts) @ -yes dreams of age Reevaluation #5: Differential Weakness: Hypoglycemia, shock, sepsis, hyponatremia, anemia, infection, VT, ETOH, adverse medicine reaction, overdose, stroke, this is not meant to be an all-inclusive list. Differential Dyspnea: Coronary syndrome, arrhythmia, tamponade, asthma, COPD, pulmonary embolism, pneumonia, pneumothorax, pulmonary effusion, anaphylaxis, diabetic ketoacidosis, flailed chest, pulmonary contusion, diaphragmatic rupture, anemia, neuromuscular, this is not meant to be an all-inclusive list. - Consultations Consultation #1: Spoke with sound who agrees to admit this patient EKG Findings - EKG Comments: EKG Findings:: EKG is sinus 65 TN 171 QRS 89 QTc 450 - EKG Results: EKG: interpreted by LAITH Medical Decision Making - Medical Decision Making 84 female to ER for evaluation of weakness and debility unable to get out of her chair for 2 days. Patient admitted for PT OT, patient does have significant lower extremity edema and swelling, will get diuresis - Lab Data Result diagrams: 11/03/24 04:10 11/07/24 06:14 Lab Results 11/02/24 11/02/24 11/02/24 Range/Units 19:36 19:36 19:36 WBC 5.95 (4.50-10.00) 10*3/uL RBC 3.73 L (4.10-5.20) 10*6/uL Hgb 10.3 L (12.0-15.0) g/dL Hct 33.2 L (37.2-46.3) % MCV 89.0 (80.0-97.0) fL MCH 27.6 (27.0-32.0) pg MCHC 31.0 L (32.0-37.0) g/dL Plt Count 237 (140-440) 10*3/uL MPV 10.7 (9.5-12.2) fL Immature Gran % (Auto) 0.2 % Neutrophils % 67.2 % Lymphocytes % 19.3 % Monocytes % 9.7 % Eosinophils % 2.4 % Basophils % 1.2 % Immature Gran # 0.01 (0.00-0.04) 10*3/uL Neutrophils # 4.00 (1.80-7.70) 10*3/uL Lymphocytes # 1.15 (0.90-5.00) 10*3/uL Monocytes # 0.58 (0.20-1.00) 10*3/uL Eosinophils # 0.14 (0.04-0.35) 10*3/uL Basophils # 0.07 (0.00-0.10) 10*3/uL PT 11.4 (10.0-12.5) sec INR 1.0 (<1.2) APTT 23.8 (22.0-30.0) sec Sodium 141 (137-145) mmol/L Potassium 5.3 H (3.5-5.1) mmol/L Chloride 114 H (98-107) mmol/L Carbon Dioxide 17 L (22-30) mmol/L Anion Gap 10 mmol/L BUN 35 H (7-17) mg/dL Creatinine 1.36 H (0.52-1.04) mg/dL Est GFR (CKD-EPI)AfAm 41 (>60 ml/min/1.73 sqM) Est GFR (CKD-EPI)NonAf 36 (>60 ml/min/1.73 sqM) Glucose 109 H (74-99) mg/dL Plasma Lactic Acid Yvan (0.7-2.0) mmol/L Calcium 9.8 (8.4-10.2) mg/dL Phosphorus 3.9 (2.5-4.5) mg/dL Magnesium 2.1 (1.6-2.3) mg/dL Total Bilirubin 0.9 (0.2-1.3) mg/dL AST 24 (14-36) U/L ALT 7 (4-34) U/L Alkaline Phosphatase 108 (38-126) U/L Troponin I (0.000-0.034) ng/mL Total Protein 6.8 (6.3-8.2) g/dL Albumin 3.6 (3.5-5.0) g/dL Urine Color Urine Appearance (Clear) Urine pH (5.0-8.0) Ur Specific [place] (1.001-1.035) Urine Protein (Negative) Urine Glucose (UA) (Negative) Urine Ketones (Negative) Urine Blood (Negative) Urine Nitrite (Negative) Urine Bilirubin (Negative) Urine Urobilinogen (<2.0) mg/dL Ur Leukocyte Esterase (Negative) Urine RBC (0-5) /hpf Urine WBC (0-5) /hpf Ur Squamous Epith Cells (0-4) /hpf Hyaline Casts (0-2) /lpf 11/02/24 11/02/24 11/02/24 Range/Units 19:36 19:36 20:07 WBC (4.50-10.00) 10*3/uL RBC (4.10-5.20) 10*6/uL Hgb (12.0-15.0) g/dL Hct (37.2-46.3) % MCV (80.0-97.0) fL MCH (27.0-32.0) pg MCHC (32.0-37.0) g/dL Plt Count (140-440) 10*3/uL MPV (9.5-12.2) fL Immature Gran % (Auto) % Neutrophils % % Lymphocytes % % Monocytes % % Eosinophils % % Basophils % % Immature Gran # (0.00-0.04) 10*3/uL Neutrophils # (1.80-7.70) 10*3/uL Lymphocytes # (0.90-5.00) 10*3/uL Monocytes # (0.20-1.00) 10*3/uL Eosinophils # (0.04-0.35) 10*3/uL Basophils # (0.00-0.10) 10*3/uL PT (10.0-12.5) sec INR (<1.2) APTT (22.0-30.0) sec Sodium (137-145) mmol/L Potassium (3.5-5.1) mmol/L Chloride (98-107) mmol/L Carbon Dioxide (22-30) mmol/L Anion Gap mmol/L BUN (7-17) mg/dL Creatinine (0.52-1.04) mg/dL Est GFR (CKD-EPI)AfAm (>60 ml/min/1.73 sqM) Est GFR (CKD-EPI)NonAf (>60 ml/min/1.73 sqM) Glucose (74-99) mg/dL Plasma Lactic Acid Yvan 1.1 (0.7-2.0) mmol/L Calcium (8.4-10.2) mg/dL Phosphorus (2.5-4.5) mg/dL Magnesium (1.6-2.3) mg/dL Total Bilirubin (0.2-1.3) mg/dL AST (14-36) U/L ALT (4-34) U/L Alkaline Phosphatase (38-126) U/L Troponin I 0.022 (0.000-0.034) ng/mL Total Protein (6.3-8.2) g/dL Albumin (3.5-5.0) g/dL Urine Color Colorless Urine Appearance Clear (Clear) Urine pH 5.5 (5.0-8.0) Ur Specific [place] 1.018 (1.001-1.035) Urine Protein 2+ H (Negative) Urine Glucose (UA) Negative (Negative) Urine Ketones Negative (Negative) Urine Blood Trace H (Negative) Urine Nitrite Negative (Negative) Urine Bilirubin Negative (Negative) Urine Urobilinogen <2.0 (<2.0) mg/dL Ur Leukocyte Esterase Negative (Negative) Urine RBC 1 (0-5) /hpf Urine WBC 1 (0-5) /hpf Ur Squamous Epith Cells <1 (0-4) /hpf Hyaline Casts 1 (0-2) /lpf - EKG Data -: EKG Interpreted by Nd - Radiology Data Radiology results: report reviewed (Chest x-ray is negative for acute disease), image reviewed Disposition Clinical Impression: Acute pulmonary edema, HUBER (acute kidney injury), Weakness, Dehydration, Debility Disposition: ADMITTED IP TO THIS [facility] Condition: Stable Is patient prescribed a controlled substance at d/c from ED?: No Time of Disposition: 21:30
[2024-11-02 19:53] LABS: Basophils # (A) 0.07 10*3/uL (0.00-0.10); Basophils % (A) 1.2 %; Eosinophils # (A) 0.14 10*3/uL (0.04-0.35); Eosinophils % (A) 2.4 %; HCT 33.2 % (37.2-46.3); HGB 10.3 g/dL (12.0-15.0); Lymphocytes # (A) 1.15 10*3/uL (0.90-5.00); Lymphocytes % (A) 19.3 %; MCH 27.6 pg (27.0-32.0); Mean Platelet Volume 10.7 fL (9.5-12.2); Monocytes # (A) 0.58 10*3/uL (0.20-1.00); Monocytes % (A) 9.7 %; Neutrophils % (A) 67.2 %; Platelet Count 237 10*3/uL (140-440); RBC 3.73 10*6/uL (4.10-5.20); RDW 15.9 % (11.5-14.5); WBC 5.95 10*3/uL (4.50-10.00)
--- NOTE | 2024-11-02 19:58 | XR ---
EXAMINATION TYPE: XR chest 2V DATE OF EXAM: 11/02/2024 7:51 PM COMPARISON: 07/14/2024 CLINICAL INDICATION: Female, 84 years old with history of Weakness, fever, edema TECHNIQUE: XR chest 2V view(s) obtained. FINDINGS: The heart size is normal. The pulmonary vasculature is normal. The lungs are clear. IMPRESSION: 1. No acute pulmonary process. [facility], , 11/02/2024 7:55 PM
[2024-11-02 20:04] LABS: ALT 7 U/L (4-34); African American GFR (CKD) 41 (>60 ml/min/1.73 sqM); Anion Gap 10 mmol/L; Blood Urea Nitrogen 35 mg/dL (7-17); Calcium 9.8 mg/dL (8.4-10.2); Carbon Dioxide 17 mmol/L (22-30); Chloride 114 mmol/L (98-107); Glucose 109 mg/dL (74-99); Non-African American GFR(CKD) 36 (>60 ml/min/1.73 sqM); Sodium 141 mmol/L (137-145); Total Bilirubin 0.9 mg/dL (0.2-1.3)
[2024-11-02 20:06] LABS: Partial Thromboplastin Time 23.8 sec (22.0-30.0); Prothrombin Time 11.4 sec (10.0-12.5)
[2024-11-02 20:20] LABS: Potassium 5.3 mmol/L (3.5-5.1)
[2024-11-02 20:21] LABS: AST 24 U/L (14-36); Albumin 3.6 g/dL (3.5-5.0); Alkaline Phosphatase 108 U/L (38-126); Magnesium 2.1 mg/dL (1.6-2.3); Phosphorus 3.9 mg/dL (2.5-4.5); Total Protein 6.8 g/dL (6.3-8.2)
[2024-11-02 20:24] LABS: Appearance,Urine Clear (Clear); Bilirubin,Urine Negative (Negative); Blood,Urine Trace (Negative); Color,Urine Colorless; Glucose,Urine (UA) Negative (Negative); Hyaline Casts,Urine 1 /lpf (0-2); Ketones,Urine Negative (Negative); Leukocyte Esterase,Urine Negative (Negative); Nitrite,Urine Negative (Negative); PH, Urine 5.5 (5.0-8.0); Protein,Urine 2+ (Negative); RBC,Urine 1 /hpf (0-5); Specific Gravity,Urine 1.018 (1.001-1.035); Squamous Epithelial Cell,Urine <1 /hpf (0-4); Urobilinogen,Urine <2.0 mg/dL (<2.0); WBC,Urine 1 /hpf (0-5)
[2024-11-02] MEDS ORDERED: NALOXONE 0.4 MG/ML 1 ML VIAL IV PRN (21:31)
[2024-11-02] MEDS ORDERED: ONDANSETRON 4 MG/2 ML VIAL IVP PRN (21:31)
[2024-11-02] MEDS: FUROSEMIDE 10 MG/ML 10 ML VIAL IV STA (22:07)
[2024-11-03] MEDS ORDERED: DEXTROSE 50% SYRINGE 50 ML IVP PRN ×2 (01:01)
[2024-11-03] MEDS: carvediloL 3.125 MG TAB PO SCH (02:34)
[2024-11-03 02:38] LABS: Glucose,Whole Blood 85 mg/dL (70-110)
[2024-11-03] MEDS ORDERED: ALBUTEROL NEBULIZED 2.5 MG/3 ML INHALATION PRN (04:00)
--- NOTE | 2024-11-03 04:05 | P.HPIM ---
History of Present Illness Patient is a 84-year-old female with HFpEF (EF 55 to 60% on May 2024) COPD (not on home oxygen), diabetes (on insulin), GERD, hyperlipidemia, hypertension, osteoarthritis, chronic lower extremity edema, known sacral ulcer and chronic bilateral ankle wounds, hypothyroidism here for evaluation of generalized weakness. Patient reported that for over 2 days, patient has been experiencing weakness to the point of being unable to ambulate out of her chair. She also has associated increased bilateral leg swelling, shortness of breath and fatigue. She usually ambulates with a walker but has not been able to do so in the past 2 days. She reported that she takes her medications regularly. She denied chest pain, palpitations, shortness of breath, productive cough, calf pain, focal weakness, facial asymmetry, changes in speech, changes in vision, recent illness. She was last seen in our facility in July 14, 2024 for CHF exacerbation. She was sent to a SNF on discharge and her home medications at that time were all continued. She is seen by home paraprofessional for her sacral ulcer and chronic lower extremity decubitus ulcers. On admission: Vitals: Temperature 97.5 F, pulse rate 64, respiratory rate 18, blood pressure 202/76, O2 saturation 97% on room air Labs: WBC 5.95, hemoglobin 10.3, MCV 89, potassium 5.3, chloride 114, bicarb 17, creatinine 1.36, BUN 35, glucose 109, phosphorus 3.9, magnesium 2.1, calcium 9.8. Urinalysis unremarkable,. Imaging: EKG showed sinus rhythm with a rate of 65 bpm, normal axis, no ST-T changes, good R wave progression, QTc 450 MS. ED documentation reviewed. IV Lasix given in the ED. Review of systems: Pertinent positives and negatives as discussed in HPI, a complete review of systems was performed and all other systems are negative. Social history: Tobacco: Former smoker. Quit 35 years ago. Alcohol: Denies alcohol intake Recreational drugs: Denies illicit or recreational drug use Travel: No recent prolonged travel Physical examination: Vital signs reviewed General: non toxic, no distress, appears at stated age, Derm: no unusual rashes/lesions, warm, sacral ulcer noted, bilateral lower extremity decubitus ulcers noted Head: atraumatic, normocephalic, symmetric Eyes: EOMI, anicteric sclera, pupils equal round reactive to light ENT: Nose and ears atraumatic Neck: No cervical lymphadenopathy, trachea midline, supple Mouth: no lip lesion, mucus membranes moist Cardiovascular: S1S2 reg, no murmur Lungs: Diffuse fine rales, no accessory muscle use Abdominal: soft, nondistended, nontender to palpation, no guarding Ext: muscle strength 5 out of 5 in all 4 extremities grossly, no gross muscle atrophy, no contractures, positive dorsalis pedis pulse bilateral, bilateral nonpitting edema from the feet up to the thighs Neuro: CN II-XI grossly intact, no gross focal neuro deficits Psych: Alert and oriented x 3, appropriate affect and mood Assessment/Plan: 84-year-old female with HFpEF, chronic bilateral decubitus ulcers of the ankle chronic lower extremity edema and known sacral ulcer here for evaluation of acute diastolic congestive heart failure and debility The patient is admitted with an anticipated greater than 2 midnight stay for evaluation of acute diastolic congestive heart failure exacerbation and debility Active: #. Acute diastolic congestive Heart Failure exacerbation (EF 55 to 60% based on echo May 2024) #. Chronic lower extremity edema, r/o DVT #. Debility -Cardiac monitoring -Supplemental oxygen as needed -Fluid restriction -Strict Is and Os. -Low sodium diet -Venous Doppler ultrasound bilateral lower extremities ordered -Lasix 60 mg IV given once in the ED -Continue Lasix 60mg IV every 12 hours -Continue Zaroxolyn 5 mg daily -Consult cardiology -Monitor electrolytes and renal function -Check CK -Consult PT OT - Will likely need placement on discharge #. Hypertensive urgency, improving -Blood pressure was 202/76 on admission. The patient was asymptomatic at the time -Continue home metolazone, carvedilol 3.125 mg twice daily and Entresto twice daily -Continue to monitor BP in the setting of diuresis #. Known sacral ulcer #. Chronic bilateral lower extremity decubitus ulcers - Consult wound care - Reposition every shift #. CKD stage 3b at baseline -Cr 1.36 -Monitor renal function and electrolytes #. Chronic normocytic anemia at baseline -Hemoglobin at 10.3. Baseline hemoglobin 8-9 - Monitor for now #. Hyperkalemia, hemolyzed #. Nonanion gap metabolic acidosis possibly due to elevated urea -Recheck BMP in the morning to reevaluate Chronic Conditions: #. COPD (not on home oxygen) #. GERD #. Hyperlipidemia #. Osteoarthritis -Continue with atorvastatin 40 mg, carvedilol 3.125 mg twice daily, levothyro xine 100 mcg daily, Entresto twice daily, Ventolin inhaler as needed #. Diabetes mellitus -Hemoglobin A1c 8% on 07/2024 -Hold home medications -Glucose Accu-Cheks ACHS -Initiate Insulin sliding scale ACHS -Monitor for hypoglycemia DVT ppx: Lovenox 30 mg subcu daily CODE STATUS: Full Discussed with: Patient Anticipated discharge place: Pending clinical course Zenaida Leiva MD PGY-1 Internal Medicine Dictation was produced using [employer] dictation software. please excuse any grammatical, word or spelling errors. I have seen and evaluated the patient today. Discussed with the resident and agree with the residents finding and plan as documented in the resident's note. 84 YO F who had presented to the hospital after being in a chair for 2 todays. exam consisent with acute HFpEF excerbation. continue iv diuresis. Past Medical History Past Medical History: Heart Failure, COPD, Diabetes Mellitus, GERD/Reflux, Hyperlipidemia, Hypertension, Osteoarthritis (OA), Pneumonia, Skin Disorder, Thyroid Disorder Additional Past Medical History / Comment(s): IDDM type II, neuropathy L hand, bilateral lower leg venostasis/dermatitis/cellulitis/ulcers/edema, FALLS, weakness, arthritis bilateral knees, vertigo, hypothyroid History of Any Multi-Drug Resistant Organisms: None Reported Past Surgical History: Breast Surgery, Cholecystectomy, Tonsillectomy Additional Past Surgical History / Comment(s): Benign mass removed from neck, R breast benign biopsy, R eye laser surgery/pt cannot recall reason. Past Anesthesia/Blood Transfusion Reactions: No Reported Reaction Past Psychological History: No Psychological Hx Reported Smoking Status: Former smoker Past Alcohol Use History: None Reported Past Drug Use History: None Reported - Past Family History Father Family Medical History: Hypertension, Myocardial Infarction ([place]) Additional Family Medical History / Comment(s): X3 [place], Mother Family Medical History: Cancer Additional Family Medical History / Comment(s): DIES FROM COLON [place] Medications and Allergies Home Medications Medication Instructions Recorded Confirmed Type Levothyroxine Sodium 100 mcg PO DAILY 10/02/19 07/14/24 History Atorvastatin Calcium [Lipitor] 40 mg PO HS 04/18/23 07/14/24 History Furosemide [Lasix] 40 mg PO BID 04/18/23 07/14/24 History carvediloL [Coreg] 3.125 mg PO BID 04/18/23 07/14/24 History Insulin NPH Hum/Reg Insulin Hm 15 units SQ BID 05/17/24 07/14/24 History [NovoLIN 70-30 Flexpen] Albuterol Inhaler [Ventolin Hfa 2 puff INHALATION RT-Q4H PRN 07/14/24 07/14/24 History Inhaler] Gabapentin [Neurontin] 100 mg PO BID 07/14/24 07/14/24 History Sacubitril/Valsartan [Entresto 24 1 tab PO BID 07/14/24 07/14/24 History mg-26 mg Tablet] metOLazone [Zaroxolyn] 5 mg PO DAILY 07/14/24 07/14/24 History Allergies Allergy/AdvReac Type Severity Reaction Status Date / Time Penicillins Allergy Rash/Hives Verified 11/02/24 19:01 Physical Exam Vitals: Vital Signs Temp Pulse Resp BP Pulse Ox 11/02/24 21:00 76 18 143/82 98 11/02/24 18:53 97.5 F L 64 18 202/76 97 Intake and Output 11/02/24 11/02/24 11/03/24 14:59 22:59 06:59 Other: Weight 86.183 kg Results CBC & Chem 7: 11/03/24 04:10 11/03/24 04:10 Labs: Abnormal Lab Results - Last 24 Hours (Table) 11/02/24 11/02/24 11/02/24 Range/Units 19:36 19:36 20:07 RBC 3.73 L (4.10-5.20) 10*6/uL Hgb 10.3 L (12.0-15.0) g/dL Hct 33.2 L (37.2-46.3) % MCHC 31.0 L (32.0-37.0) g/dL Potassium 5.3 H (3.5-5.1) mmol/L Chloride 114 H (98-107) mmol/L Carbon Dioxide 17 L (22-30) mmol/L BUN 35 H (7-17) mg/dL Creatinine 1.36 H (0.52-1.04) mg/dL Glucose 109 H (74-99) mg/dL Urine Protein 2+ H (Negative) Urine Blood Trace H (Negative)
[2024-11-03 04:31] LABS: Basophils # (A) 0.05 10*3/uL (0.00-0.10); Basophils % (A) 0.9 %; Eosinophils # (A) 0.23 10*3/uL (0.04-0.35); Eosinophils % (A) 4.2 %; Lymphocytes # (A) 1.29 10*3/uL (0.90-5.00); Lymphocytes % (A) 23.4 %; MCH 27.1 pg (27.0-32.0); MCHC 30.3 g/dL (32.0-37.0); MCV 89.4 fL (80.0-97.0); Mean Platelet Volume 10.2 fL (9.5-12.2); Monocytes # (A) 0.63 10*3/uL (0.20-1.00); Monocytes % (A) 11.4 %; Neutrophils # (A) 3.31 10*3/uL (1.80-7.70); Neutrophils % (A) 59.9 %; Platelet Count 244 10*3/uL (140-440); RBC 3.69 10*6/uL (4.10-5.20); RDW 15.9 % (11.5-14.5); WBC 5.52 10*3/uL (4.50-10.00)
[2024-11-03 04:58] LABS: ALT 6 U/L (4-34); AST 20 U/L (14-36); African American GFR (CKD) 41 (>60 ml/min/1.73 sqM); Albumin 3.3 g/dL (3.5-5.0); Alkaline Phosphatase 112 U/L (38-126); Anion Gap 10 mmol/L; Blood Urea Nitrogen 34 mg/dL (7-17); Calcium 10.1 mg/dL (8.4-10.2); Carbon Dioxide 20 mmol/L (22-30); Chloride 109 mmol/L (98-107); Glucose 88 mg/dL (74-99); Non-African American GFR(CKD) 35 (>60 ml/min/1.73 sqM); Phosphorus 3.9 mg/dL (2.5-4.5); Potassium 4.5 mmol/L (3.5-5.1); Sodium 139 mmol/L (137-145); Total Bilirubin 0.7 mg/dL (0.2-1.3); Total Protein 6.3 g/dL (6.3-8.2)
--- NOTE | 2024-11-03 07:35 | US ---
EXAMINATION TYPE: US venous doppler duplex LE BI DATE OF EXAM: 11/03/2024 7:24 AM COMPARISON: NONE CLINICAL INDICATION: Female, 84 years old with history of lower ext swelling; Swelling to legs, ongoi ng, no h/o dvt, legs wrapped from calf down. TECHNIQUE: The lower extremity deep venous system is examined utilizing real time linear array sonog micky with graded compression, color doppler sonography, and spectral doppler. SIDE PERFORMED: Bilateral FINDINGS: VESSELS IMAGED: Common Femoral Vein Deep Femoral Vein Greater Saphenous Vein * Femoral Vein Popliteal Vein Small Saphenous Vein * Proximal Calf Veins (* superficial vessels) could not do compression images behind knee due to swelling already narrowing vein and no views of vessels with color off Right Leg: Negative for DVT, Color Doppler imaging shows patency of the vessels. Spectral waveforms are within normal limits. Left Leg: Negative for DVT, Color Doppler imaging shows patency of the vessels. Spectral waveforms a re within normal limits. IMPRESSION: No ultrasound evidence for deep venous thrombosis. [facility], , 11/03/2024 7:33 AM
[2024-11-03 07:39] LABS: Glucose,Whole Blood 88 mg/dL (70-110)
[2024-11-03] MEDS: INSULIN LISPRO (HumaLOG) 100 UNIT/ML 10 mL VL SQ SCH (07:44)
[2024-11-03] MEDS ORDERED: FUROSEMIDE 10 MG/ML 4 ML VIAL IV SCH (09:00)
[2024-11-03] MEDS: FUROSEMIDE 10 MG/ML 10 ML VIAL IV SCH (09:01)
[2024-11-03] MEDS: LEVOTHYROXINE 100 MCG TAB PO SCH (09:01)
[2024-11-03] MEDS: metOLazone 5 MG TAB PO SCH (09:01)
[2024-11-03] MEDS: SACUBITRIL/VALSARTAN 24 MG-26 MG TABLET PO SCH (09:01)
--- NOTE | 2024-11-03 09:48 | P.CONS ---
History of Present Illness - Reason for Consult Consult date: 11/03/24 Wound care - History of Present Illness This is an 84-year-old patient being seen for a nonhealing ulceration to the sacrum and multiple nonhealing ulcerations to bilateral lower extremities. The sacral ulceration measures approximately 2 x 0.4 x 0.2 cm with granulation seen in the wound bed wound edges are attached to the wound base there is no tunneling or undermining. Patient has multiple open ulcerations to bilateral lower extremities that are limited to skin breakdown with slough and nonviable tissue present. Review Of Systems: Constitutional: No fever, no chills, no night sweats. No weight change. No weakness, fatigue or lethargy. No daytime sleepiness. Integumentary:reports wounds, no lesions. No rash or pruritus. No unusual bruising. No change in hair or nails. Physical exam: General Appearance: Alert, cooperative, no distress, appears stated age. Skin: See HPI all other Skin color, texture, tugor normal, no rashes or lesions. Neurologic: Alert oriented x3 Assessment: 1. Stage II pressure ulcer sacrum 2. Nonhealing ulceration multiple sites bilateral lower extremities limited to skin breakdown Plan: 1.Sacrum: Apply honey gel and bordered foam. Bilateral lower extremities apply honey gel dry gauze rolled gauze and secure with paper tape. Change Friday, Friday and Friday. Thank you for the consultation any questions please contact the wound care center DNP note has been reviewed and discussed with Dr. Barone and the impression and plan of care has been directed as dictated. Past Medical History Past Medical History: Heart Failure, COPD, Diabetes Mellitus, GERD/Reflux, Hyperlipidemia, Hypertension, Osteoarthritis (OA), Pneumonia, Skin Disorder, Thyroid Disorder Additional Past Medical History / Comment(s): IDDM type II, neuropathy L hand, bilateral lower leg venostasis/dermatitis/cellulitis/ulcers/edema, FALLS, weakness, arthritis bilateral knees, vertigo, hypothyroid History of Any Multi-Drug Resistant Organisms: None Reported Past Surgical History: Breast Surgery, Cholecystectomy, Tonsillectomy Additional Past Surgical History / Comment(s): Benign mass removed from neck, R breast benign biopsy, R eye laser surgery/pt cannot recall reason. Past Anesthesia/Blood Transfusion Reactions: No Reported Reaction Past Psychological History: No Psychological Hx Reported Additional Psychological History / Comment(s): [Pt recently was at [facility] for rehab and was discharged from there on 07/05/21. She is to establish with [facility]. Her rosalba and grandauter live nearby and assist pt with getting groceries, housework. Pt states she can no longer get out of her 2 story home d/t stairs at both doors. She lives on the first floor. She gets meals on wheels. She ambulates with a walker. She manages her own medications and sponge bathes and dresses herself.] Smoking Status: Former smoker Past Alcohol Use History: None Reported Additional Past Alcohol Use History / Comment(s): Pt started smoking in 1959 and quit in 1999 Past Drug Use History: None Reported - Past Family History Father Family Medical History: Hypertension, Myocardial Infarction (PR) Additional Family Medical History / Comment(s): X3 PR, Mother Family Medical History: Cancer Additional Family Medical History / Comment(s): DIES FROM COLON CA Medications and Allergies Home Medications Medication Instructions Recorded Confirmed Type Levothyroxine Sodium 100 mcg PO DAILY@1200 10/02/19 11/03/24 History Atorvastatin Calcium [Lipitor] 40 mg PO HS 04/18/23 11/03/24 History Furosemide [Lasix] 40 mg PO BID 04/18/23 11/03/24 History carvediloL [Coreg] 3.125 mg PO BID 04/18/23 11/03/24 History Insulin NPH Hum/Reg Insulin Hm 15 units SQ W/SUPPER 05/17/24 11/03/24 History [NovoLIN 70-30 Flexpen] Albuterol Inhaler [Ventolin Hfa 2 puff INHALATION RT-Q4H PRN 07/14/24 11/03/24 History Inhaler] Sacubitril/Valsartan [Entresto 24 1 tab PO BID 07/14/24 11/03/24 History mg-26 mg Tablet] Allergies Allergy/AdvReac Type Severity Reaction Status Date / Time Penicillins Allergy Rash/Hives Verified 11/03/24 09:10 Physical Exam Vitals: Vital Signs Temp Pulse Resp BP Pulse Ox 11/03/24 09:00 62 18 183/74 96 11/03/24 07:00 98.0 F 61 18 180/68 98 11/03/24 06:00 98.1 F 54 L 18 159/56 95 11/03/24 04:00 56 L 18 185/88 95 11/03/24 02:00 98.0 F 68 18 184/86 95 11/03/24 00:00 62 18 188/74 95 11/02/24 21:00 76 18 143/82 98 11/02/24 18:53 97.5 F L 64 18 202/76 97 Intake and Output 11/02/24 11/03/24 11/03/24 22:59 06:59 14:59 Output Total 1850 Balance -1850 Output: Urine 1850 Other: Weight 86.183 kg 86.183 kg Results CBC & Chem 7: 11/03/24 04:10 11/03/24 04:10 Labs: Abnormal Lab Results - Last 24 Hours (Table) 11/02/24 11/02/24 11/02/24 Range/Units 19:36 19:36 20:07 RBC 3.73 L (4.10-5.20) 10*6/uL Hgb 10.3 L (12.0-15.0) g/dL Hct 33.2 L (37.2-46.3) % MCHC 31.0 L (32.0-37.0) g/dL Potassium 5.3 H (3.5-5.1) mmol/L Chloride 114 H (98-107) mmol/L Carbon Dioxide 17 L (22-30) mmol/L BUN 35 H (7-17) mg/dL Creatinine 1.36 H (0.52-1.04) mg/dL Glucose 109 H (74-99) mg/dL Albumin (3.5-5.0) g/dL Urine Protein 2+ H (Negative) Urine Blood Trace H (Negative) 11/03/24 11/03/24 Range/Units 04:10 04:10 RBC 3.69 L (4.10-5.20) 10*6/uL Hgb 10.0 L (12.0-15.0) g/dL Hct 33.0 L (37.2-46.3) % MCHC 30.3 L (32.0-37.0) g/dL Potassium (3.5-5.1) mmol/L Chloride 109 H (98-107) mmol/L Carbon Dioxide 20 L (22-30) mmol/L BUN 34 H (7-17) mg/dL Creatinine 1.38 H (0.52-1.04) mg/dL Glucose (74-99) mg/dL Albumin 3.3 L (3.5-5.0) g/dL Urine Protein (Negative) Urine Blood (Negative) Assessment and Plan (1) Non-pressure ulcer of left lower extremity, limited to breakdown of skin Current Visit: No Status: Acute Code(s): L97.921 - NON-PRS CHR ULC UNSP PRT OF L LOW LEG LIMITED TO BRKDWN SKIN SNOMED Code(s): 92880759 (2) Non-pressure ulcer of right lower extremity, limited to breakdown of skin Current Visit: No Status: Acute Code(s): L97.911 - NON-PRS CHR ULC UNSP PRT OF R LOW LEG LIMITED TO BRKDWN SKIN SNOMED Code(s): 95423501 (3) Pressure injury of coccygeal region, stage 2 Current Visit: No Status: Acute Code(s): L89.152 - PRESSURE ULCER OF SACRAL REGION, STAGE 2 SNOMED Code(s): 38837571750013046 (4) Diabetes mellitus with skin ulcer Current Visit: No Status: Acute Code(s): E11.622 - TYPE 2 DIABETES MELLITUS WITH OTHER SKIN ULCER; L98.499 - NON-PRESSURE CHRONIC ULCER OF SKIN OF SITES W UNSP SEVERITY SNOMED Code(s): 140662399
--- NOTE | 2024-11-03 11:45 | P.PN ---
Subjective Progress Note Date: 11/03/24 Hospital Course: Patient is a 84-year-old female with HFpEF (EF 55 to 60% on May 2024) COPD (not on home oxygen), diabetes (on insulin), GERD, hyperlipidemia, hypertension, osteoarthritis, chronic lower extremity edema, known sacral ulcer and chronic bilateral ankle wounds, hypothyroidism here for evaluation of generalized weakness. Patient reported that for over 2 days, patient has been experiencing weakness to the point of being unable to ambulate out of her chair. She also has associated increased bilateral leg swelling, shortness of breath and fatigue. She usually ambulates with a walker but has not been able to do so in the past 2 days. She reported that she takes her medications regularly. She denied chest pain, palpitations, shortness of breath, productive cough, calf pain, focal weakness, facial asymmetry, changes in speech, changes in vision, recent illness. She was last seen in our facility in July 14, 2024 for CHF exacerbation. She was sent to a SNF on discharge and her home medications at that time were all continued. She is seen by home economist consumer service for her sacral ulcer and chronic lower extremity decubitus ulcers. On admission: Vitals: Temperature 97.5 F, pulse rate 64, respiratory rate 18, blood pressure 202/76, O2 saturation 97% on room air WBC 5.95, Urinalysis unremarkable,. Chest x-ray with no acute process.: EKG showed sinus rhythm with a rate of 65 bpm, normal axis, no ST-T changes, good R wave progression, QTc 450 MS. Admitted as inpatient for further management of acute CHF exacerbation. Bilateral lower extremity duplex showed no signs of VTE. Blood pressure remained elevated, Procardia 60 mg added. PT OT consulted for possible p lacement if needed 11/03: Seen and examined in the ER, breathing is getting better, she noted that her lower extremity wounds are healing well. Blood pressure remains elevated Pertinent positives and negatives as discussed above, a complete review of systems was performed and all other systems are negative. Vitals Signs Reviewed. General: [nontoxic], [no distress], [appears at stated age] Derm: [warm], [dry] Head: [atraumatic], [normocephalic], [symmetric] Eyes: [EOMI], [no lid lag], [anicteric sclera] Mouth: [no lip lesion], [mucus membranes moist] Cardiovascular: [S1S2 reg], [no murmur] Lungs: [CTA bilateral], [no rhonchi, no rales] , [no accessory muscle use] Abdominal: [soft], [ nontender to palpation], [no guarding], [no appreciable organomegaly] Ext: [no gross muscle atrophy,lower extremity edema, dressing intact, bilateral lower extremity wounds/ulceration Neuro: [ CN II-XI grossly intact], [no focal neuro deficits] Psych: [Alert], [oriented], [appropriate affect] Data Reviewed Today: Pertinent Labs: [] Imaging: [] Assessment and Plan: Acute diastolic CHF exacerbation -Continue telemetry, strict I's and O's, daily weights, fluid restriction, low- sodium diet -Continue Lasix 60 mg IV twice daily for now, continue Zaroxolyn 5 mg daily -Monitor BMP and electrolytes during IV diuresis Hypertensive urgency -Continue home metolazone, carvedilol 3.125 mg twice daily and Entresto twice daily - Procardia 60 mg added -Continue with IV diuresis -Patient states that her visiting nurse checks her blood pressure couple times a week and usually she is in 120s CKD stage IIIb, at baseline -Creatinine at baseline, will monitor renal function closely during IV diuresis Bilateral lower extremity edema, chronic -Venous duplex showed no signs of DVT -Continue diuresis as above Generalized weakness, debility -PT OT consulted, possible placement Stage II pressure ulcer sacrum Nonhealing ulceration multiple sites bilateral lower extremities limited to skin breakdown - Wound care consulted, appreciate recommendations Chronic normocytic anemia, at baseline COPD (not on home oxygen), not in acute exacerbation GERD Hyperlipidemia Osteoarthritis -Continue with atorvastatin 40 mg, carvedilol 3.125 mg twice daily, levothyroxine 100 mcg daily, Entresto twice daily, Ventolin inhaler as needed Diabetes mellitus -Hemoglobin A1c 8% on 07/2024 -Hold home medications -Glucose Accu-Cheks ACHS -Initiate Insulin sliding scale ACHS -Monitor for hypoglycemia I have reviewed the following consultants intern notes: I have reviewed the results of the following tests: CBC, BMP I have ordered the following tests: BMP to monitor kidney function I have discussed the care of this patient with the following independent historian: I have independently interpreted the following test below: CBC and BMP I have discussed the management of this patient with the following physician: DVT ppx: Lovenox 30 mg subcu daily CODE STATUS: Full Anticipated discharge place: Pending clinical course Objective - Vital Signs Vital signs: Vital Signs Temp 98.0 F 11/03/24 07:00 Pulse 62 11/03/24 11:15 Resp 18 11/03/24 11:15 BP 193/74 11/03/24 11:15 Pulse Ox 96 11/03/24 11:15 FiO2 Intake & Output 11/02/24 11/03/24 11/03/24 18:59 06:59 18:59 Output Total 1850 Balance -1850 Weight 86.183 kg 86.183 kg Output: Urine 1850 - Labs CBC & Chem 7: 11/03/24 04:10 11/03/24 04:10 Labs: Abnormal Lab Results - Last 24 Hours (Table) 11/02/24 11/02/24 11/02/24 Range/Units 19:36 19:36 20:07 RBC 3.73 L (4.10-5.20) 10*6/uL Hgb 10.3 L (12.0-15.0) g/dL Hct 33.2 L (37.2-46.3) % MCHC 31.0 L (32.0-37.0) g/dL Potassium 5.3 H (3.5-5.1) mmol/L Chloride 114 H (98-107) mmol/L Carbon Dioxide 17 L (22-30) mmol/L BUN 35 H (7-17) mg/dL Creatinine 1.36 H (0.52-1.04) mg/dL Glucose 109 H (74-99) mg/dL Albumin (3.5-5.0) g/dL Urine Protein 2+ H (Negative) Urine Blood Trace H (Negative) 11/03/24 11/03/24 Range/Units 04:10 04:10 RBC 3.69 L (4.10-5.20) 10*6/uL Hgb 10.0 L (12.0-15.0) g/dL Hct 33.0 L (37.2-46.3) % MCHC 30.3 L (32.0-37.0) g/dL Potassium (3.5-5.1) mmol/L Chloride 109 H (98-107) mmol/L Carbon Dioxide 20 L (22-30) mmol/L BUN 34 H (7-17) mg/dL Creatinine 1.38 H (0.52-1.04) mg/dL Glucose (74-99) mg/dL Albumin 3.3 L (3.5-5.0) g/dL Urine Protein (Negative) Urine Blood (Negative)
[2024-11-03 11:56] LABS: Glucose,Whole Blood 119 mg/dL (70-110)
[2024-11-03 17:13] LABS: Glucose,Whole Blood 196 mg/dL (70-110)
[2024-11-03] MEDS ORDERED: ZINC OXIDE PASTE (Z-GUARD) 1 APPLIC TOPICAL PRN (19:11)
[2024-11-03 19:59] LABS: Glucose,Whole Blood 233 mg/dL (70-110)
[2024-11-03] MEDS: ACETAMINOPHEN TAB 325 MG TAB PO PRN (21:59)
[2024-11-03] MEDS: ATORVASTATIN 40 MG TAB PO SCH (21:59)
[2024-11-03] MEDS: NYSTATIN 100,000 UNIT/GM POWD 15 GM TOPICAL SCH (23:05)
[2024-11-04 07:11] LABS: Glucose,Whole Blood 99 mg/dL (70-110)
[2024-11-04 09:10] LABS: BUN/Creat Ratio 21.68 Ratio (12.00-20.00); Blood Urea Nitrogen 41.2 mg/dL (9.0-27.0); Glucose 86 mg/dL (70-110)
[2024-11-04 09:11] LABS: Calcium 9.2 mg/dL (8.7-10.3); Carbon Dioxide 26.1 mmol/L (21.6-31.8); Chloride 105 mmol/L (96-109); Potassium 4.7 mmol/L (3.5-5.5); Sodium 141 mmol/L (135-145)
[2024-11-04 12:08] LABS: Glucose,Whole Blood 192 mg/dL (70-110)
--- NOTE | 2024-11-04 12:41 | P.PN ---
Subjective Progress Note Date: 11/04/24 Hospital Course: Patient is a 84-year-old female with HFpEF (EF 55 to 60% on May 2024) COPD (not on home oxygen), diabetes (on insulin), GERD, hyperlipidemia, hypertension, osteoarthritis, chronic lower extremity edema, known sacral ulcer and chronic bilateral ankle wounds, hypothyroidism here for evaluation of generalized weakness. Patient reported that for over 2 days, patient has been experiencing weakness to the point of being unable to ambulate out of her chair. She also has associated increased bilateral leg swelling, shortness of breath and fatigue. She usually ambulates with a walker but has not been able to do so in the past 2 days. She reported that she takes her medications regularly. She denied chest pain, palpitations, shortness of breath, productive cough, calf pain, focal weakness, facial asymmetry, changes in speech, changes in vision, recent illness. She was last seen in our facility in July 14, 2024 for CHF exacerbation. She was sent to a SNF on discharge and her home medications at that time were all continued. She is seen by home visits nurse for her sacral ulcer and chronic lower extremity decubitus ulcers. On admission: Vitals: Temperature 97.5 F, pulse rate 64, respiratory rate 18, blood pressure 202/76, O2 saturation 97% on room air WBC 5.95, Urinalysis unremarkable,. Chest x-ray with no acute process.: EKG showed sinus rhythm with a rate of 65 bpm, normal axis, no ST-T changes, good R wave progression, QTc 450 MS. Admitted as inpatient for further management of acute CHF exacerbation. Bilateral lower extremity duplex showed no signs of VTE. Blood pressure remained elevated, Procardia 60 mg added. PT OT consulted for possible p lacement if needed 11/03: Seen and examined in the ER, breathing is getting better, she noted that her lower extremity wounds are healing well. Blood pressure remains elevated 11/04: Improved significantly, patient is still on room air, blood pressure stable and other vitals stable. Creatinine up to 1.9 from 1.38., IV Lasix 60 twice daily stopped, resumed home oral Lasix 40 twice daily , repeat BMP in the morning. PT OT evaluation pending Pertinent positives and negatives as discussed above, a complete review of systems was performed and all other systems are negative. Vitals Signs Reviewed. General: [nontoxic], [no distress], [appears at stated age] Derm: [warm], [dry] Head: [atraumatic], [normocephalic], [symmetric] Eyes: [EOMI], [no lid lag], [anicteric sclera] Mouth: [no lip lesion], [mucus membranes moist] Cardiovascular: [S1S2 reg], [no murmur] Lungs: [CTA bilateral], [no rhonchi, no rales] , [no accessory muscle use] Abdominal: [soft], [ nontender to palpation], [no guarding], [no appreciable organomegaly] Ext: [no gross muscle atrophy,lower extremity edema, dressing intact, bilateral lower extremity wounds/ulceration Neuro: [ CN II-XI grossly intact], [no focal neuro deficits] Psych: [Alert], [oriented], [appropriate affect] Assessment and Plan: Acute diastolic CHF exacerbation -Continue telemetry, strict I's and O's, daily weights, fluid restriction, low- sodium diet -Creatinine up to 1.9 from 1.38., IV Lasix 60 twice daily stopped, resumed home oral Lasix 40 twice daily starting, repeat BMP in the morning, continue Zaroxolyn 5 mg daily -Monitor BMP and electrolytes Hypertensive urgency -Continue home metolazone, carvedilol 3.125 mg twice daily and Entresto twice daily - Procardia 60 mg added -Patient states that her visiting nurse checks her blood pressure couple times a week and usually she is in 120s HUBER on CKD stage IIIb, at baseline - Discontinue IV Lasix, switch to home Lasix as above, follow-up BMP daily Bilateral lower extremity edema, chronic -Venous duplex showed no signs of DVT -Continue diuresis as above Generalized weakness, debility -PT OT consulted, possible placement Stage II pressure ulcer sacrum Nonhealing ulceration multiple sites bilateral lower extremities limited to skin breakdown - Wound care consulted, appreciate recommendations Chronic normocytic anemia, at baseline COPD (not on home oxygen), not in acute exacerbation GERD Hyperlipidemia Osteoarthritis -Continue with atorvastatin 40 mg, carvedilol 3.125 mg twice daily, levothyroxine 100 mcg daily, Entresto twice daily, Ventolin inhaler as needed Diabetes mellitus -Hemoglobin A1c 8% on 07/2024 -Hold home medications -Glucose Accu-Cheks ACHS -Initiate Insulin sliding scale ACHS -Monitor for hypoglycemia I have reviewed the following market consultant notes: I have reviewed the results of the following tests: CBC, BMP I have ordered the following tests: BMP to monitor kidney function I have discussed the care of this patient with the following independent historian: Zenaida HENDRICKS I have independently interpreted the following test below: CBC and BMP I have discussed the management of this patient with the following physician: DVT ppx: Lovenox 30 mg subcu daily CODE STATUS: Full Anticipated discharge place: Pending clinical course Objective - Vital Signs Vital signs: Vital Signs Temp 97.6 F 11/04/24 08:03 Pulse 67 11/04/24 08:53 Resp 18 11/04/24 08:53 BP 146/58 11/04/24 08:03 Pulse Ox 93 L 11/04/24 01:11 FiO2 Intake & Output 11/03/24 11/04/24 11/04/24 18:59 06:59 18:59 Output Total 1450 1000 Balance -1450 -1000 Weight 86.183 kg 90.1 kg Output: Urine 1450 1000 Other: Voiding Method External Catheter # Bowel Movements 1 - Labs CBC & Chem 7: 11/03/24 04:10 11/04/24 03:40 Labs: Abnormal Lab Results - Last 24 Hours (Table) 11/03/24 11/03/24 11/04/24 Range/Units 17:12 19:56 03:40 BUN 41.2 H (9.0-27.0) mg/dL Creatinine 1.9 H (0.6-1.5) mg/dL Est GFR (CKD-EPI) 26 L (>=60) BUN/Creatinine Ratio 21.68 H (12.00-20.00) Ratio POC Glucose (mg/dL) 196 H 233 H (70-110) mg/dL 11/04/24 Range/Units 12:06 BUN (9.0-27.0) mg/dL Creatinine (0.6-1.5) mg/dL Est GFR (CKD-EPI) (>=60) BUN/Creatinine Ratio (12.00-20.00) Ratio POC Glucose (mg/dL) 192 H (70-110) mg/dL
[2024-11-04] MEDS ORDERED: FUROSEMIDE 20 MG TAB PO SCH (16:00)
[2024-11-04 17:06] LABS: Glucose,Whole Blood 204 mg/dL (70-110)
[2024-11-04 20:36] LABS: Glucose,Whole Blood 222 mg/dL (70-110)
[2024-11-05 07:15] LABS: Glucose,Whole Blood 121 mg/dL (70-110)
[2024-11-05 08:29] LABS: BUN/Creat Ratio 27.53 Ratio (12.00-20.00); Blood Urea Nitrogen 52.3 mg/dL (9.0-27.0); Chloride 108 mmol/L (96-109); Glucose 115 mg/dL (70-110); Potassium 4.6 mmol/L (3.5-5.5); Sodium 143 mmol/L (135-145)
[2024-11-05 08:30] LABS: Calcium 8.6 mg/dL (8.7-10.3)
[2024-11-05] MEDS ORDERED: FUROSEMIDE 40 MG TAB PO SCH (09:00)
[2024-11-05] MEDS ORDERED: FUROSEMIDE 20 MG TAB PO SCH (09:00)
--- NOTE | 2024-11-05 11:19 | P.PN ---
Subjective Progress Note Date: 11/05/24 Hospital Course: Patient is a 84-year-old female with HFpEF (EF 55 to 60% on May 2024) COPD (not on home oxygen), diabetes (on insulin), GERD, hyperlipidemia, hypertension, osteoarthritis, chronic lower extremity edema, known sacral ulcer and chronic bilateral ankle wounds, hypothyroidism here for evaluation of generalized weakness. Patient reported that for over 2 days, patient has been experiencing weakness to the point of being unable to ambulate out of her chair. She also has associated increased bilateral leg swelling, shortness of breath and fatigue. She usually ambulates with a walker but has not been able to do so in the past 2 days. She reported that she takes her medications regularly. She denied chest pain, palpitations, shortness of breath, productive cough, calf pain, focal weakness, facial asymmetry, changes in speech, changes in vision, recent illness. She was last seen in our facility in July 14, 2024 for CHF exacerbation. She was sent to a SNF on discharge and her home medications at that time were all continued. She is seen by home school liaison officer for her sacral ulcer and chronic lower extremity decubitus ulcers. On admission: Vitals: Temperature 97.5 F, pulse rate 64, respiratory rate 18, blood pressure 202/76, O2 saturation 97% on room air WBC 5.95, Urinalysis unremarkable,. Chest x-ray with no acute process.: EKG showed sinus rhythm with a rate of 65 bpm, normal axis, no ST-T changes, good R wave progression, QTc 450 MS. Admitted as inpatient for further management of acute CHF exacerbation. Bilateral lower extremity duplex showed no signs of VTE. Blood pressure remained elevated, Procardia 60 mg added. PT OT consulted for possible p lacement if needed 11/04: Improved significantly, patient is still on room air, blood pressure stabl e and other vitals stable. Creatinine up to 1.9 from 1.38., IV Lasix 60 twice daily stopped, resumed home oral Lasix 40 twice daily , repeat BMP in the morning. PT OT recommends FLORI 11/05: No improvement in creatinine, Lasix stopped, recheck BMP in the morning, patient's breathing status is stable, she is on room air. Of note, bedbugs were reported during lower extremity dressing change, there are concerning bites on bilateral lower extremities. Patient's family notified Pertinent positives and negatives as discussed above, a complete review of systems was performed and all other systems are negative. Vitals Signs Reviewed. General: [nontoxic], [no distress], [appears at stated age] Derm: [warm], [dry] Head: [atraumatic], [normocephalic], [symmetric] Eyes: [EOMI], [no lid lag], [anicteric sclera] Mouth: [no lip lesion], [mucus membranes moist] Cardiovascular: [S1S2 reg], [no murmur] Lungs: [CTA bilateral], [no rhonchi, no rales] , [no accessory muscle use] Abdominal: [soft], [ nontender to palpation], [no guarding], [no appreciable organomegaly] Ext: [no gross muscle atrophy,lower extremity edema, dressing intact, bilateral lower extremity wounds/ulceration Neuro: [ CN II-XI grossly intact], [no focal neuro deficits] Psych: [Alert], [oriented], [appropriate affect] Assessment and Plan: Acute diastolic CHF exacerbation -Continue telemetry, strict I's and O's, daily weights, fluid restriction, low- sodium diet -Creatinine up to 1.9 from 1.38., Oral Lasix 40 twice daily stopped , repeat BMP in the morning, -Monitor BMP and electrolytes Hypertensive urgency -Continue home metolazone, carvedilol 3.125 mg twice daily and Entresto twice daily - Procardia 60 mg added -Patient states that her visiting nurse checks her blood pressure couple times a week and usually she is in 120s HUBER on CKD stage IIIb - Discontinue Lasix as above, follow-up BMP daily Bilateral lower extremity edema, chronic -Venous duplex showed no signs of DVT -Continue diuresis as above Generalized weakness, debility -PT OT consulted, Stage II pressure ulcer sacrum Nonhealing ulceration multiple sites bilateral lower extremities limited to skin breakdown - Wound care consulted, appreciate recommendations Chronic normocytic anemia, at baseline COPD (not on home oxygen), not in acute exacerbation GERD Hyperlipidemia Osteoarthritis -Continue with atorvastatin 40 mg, carvedilol 3.125 mg twice daily, levothyroxine 100 mcg daily, Entresto twice daily, Ventolin inhaler as needed Diabetes mellitus -Hemoglobin A1c 8% on 07/2024 -Hold home medications -Glucose Accu-Cheks ACHS -Initiate Insulin sliding scale ACHS -Monitor for hypoglycemia I have reviewed the following peoplesoft hcm consultant notes: I have reviewed the results of the following tests: CBC, BMP I have ordered the following tests: BMP to monitor kidney function I have discussed the care of this patient with the following independent historian: RN I have independently interpreted the following test below: CBC and BMP I have discussed the management of this patient with the following physician: DVT ppx: Heparin subcu CODE STATUS: Full Anticipated discharge place: Pending kidney function improvement, plan to go to SNF Objective - Vital Signs Vital signs: Vital Signs Temp 98.3 F 11/05/24 07:39 Pulse 66 11/05/24 07:39 Resp 18 11/05/24 07:39 BP 124/66 11/05/24 07:39 Pulse Ox 96 11/05/24 07:39 FiO2 Intake & Output 11/04/24 11/05/24 11/05/24 18:59 06:59 18:59 Output Total 1000 300 Balance -1000 -300 Weight 92.6 kg Output: Urine 1000 300 Other: Voiding Method External Catheter External Catheter External Catheter # Bowel Movements 1 - Labs CBC & Chem 7: 11/03/24 04:10 11/05/24 05:32 Labs: Abnormal Lab Results - Last 24 Hours (Table) 11/04/24 11/04/24 11/04/24 Range/Units 12:06 17:04 20:33 BUN (9.0-27.0) mg/dL Creatinine (0.6-1.5) mg/dL Est GFR (CKD-EPI) (>=60) BUN/Creatinine Ratio (12.00-20.00) Ratio Glucose (70-110) mg/dL POC Glucose (mg/dL) 192 H 204 H 222 H (70-110) mg/dL Calcium (8.7-10.3) mg/dL 11/05/24 11/05/24 Range/Units 05:32 07:14 BUN 52.3 H (9.0-27.0) mg/dL Creatinine 1.9 H (0.6-1.5) mg/dL Est GFR (CKD-EPI) 26 L (>=60) BUN/Creatinine Ratio 27.53 H (12.00-20.00) Ratio Glucose 115 H (70-110) mg/dL POC Glucose (mg/dL) 121 H (70-110) mg/dL Calcium 8.6 L (8.7-10.3) mg/dL
[2024-11-05 12:14] LABS: Glucose,Whole Blood 197 mg/dL (70-110)
--- NOTE | 2024-11-05 13:50 | XR ---
EXAMINATION TYPE: XR Hip Complete RT DATE OF EXAM: 11/05/2024 1:20 PM COMPARISON: None. CLINICAL INDICATION: Female, 84 years old with history of R Hip pain, pain TECHNIQUE: 2 view(s) obtained. FINDINGS: Femoral head articulates with the acetabulum. No acute fracture or dislocation evident. Vascular calc ifications present Follow-up can be performed as clinically indicated IMPRESSION: 1. No acute fracture right hip [facility], Workstation: [facility], 11/05/2024 1:47 PM
[2024-11-05] MEDS: LIDOCAINE 4% PATCH TOPICAL SCH (14:10)
[2024-11-05 17:01] LABS: Glucose,Whole Blood 203 mg/dL (70-110)
[2024-11-05 19:57] LABS: Glucose,Whole Blood 240 mg/dL (70-110)
[2024-11-05] MEDS: HEPARIN SODIUM,PORCINE 5,000 UNIT/ML 1 ML VIAL SQ SCH (20:19)
[2024-11-06 07:22] LABS: Glucose,Whole Blood 156 mg/dL (70-110)
[2024-11-06 12:05] LABS: Glucose,Whole Blood 220 mg/dL (70-110)
[2024-11-06 13:28] LABS: BUN/Creat Ratio 31.61 Ratio (12.00-20.00); Blood Urea Nitrogen 56.9 mg/dL (9.0-27.0); Calcium 8.8 mg/dL (8.7-10.3); Carbon Dioxide 20.3 mmol/L (21.6-31.8); Chloride 108 mmol/L (96-109); Glucose 160 mg/dL (70-110); Potassium 4.3 mmol/L (3.5-5.5); Sodium 144 mmol/L (135-145)
--- NOTE | 2024-11-06 15:31 | P.PN ---
Subjective Progress Note Date: 11/06/24 Patient was seen and examined. No acute events overnight. Reports bed sore in her buttocks. BMP bicarb 20.3, AG 15.7, BUN 56.9, Cr 1.8, glu 160. Hip XR neg. General: non toxic, no distress, appears at stated age Derm: warm, dry Head: atraumatic, normocephalic, symmetric Mouth: no lip lesion, mucus membranes moist Cardiovascular: good distal perfusion in all 4 extremities Lungs: breathing comfortably, no accessory muscle use Ext: no gross muscle atrophy, 2+ LE edema with ulceration, no contractures Based on my assessment of this patient, this patient meets a high complexity level of care. HUBER on CKD stage IIIb: UA 2+ protein. Bladder scan PRN. Obtain renal/bladder US. Lasix on hold. Hypertensive urgency: Coreg 3.125 mg PO BID. Metolazone 5 mg PO QD. Nifedipine 60 mg PO QD. Entresto 24-26 mg PO BID. Diastolic CHF exacerbation: Coreg, Metolazone, Nifedipine, Entresto as above. Bilateral lower extremity edema: Chronic. Venous duplex neg. JOÃO wrap bilateral LE. Debility: PT and OT consult. Fall precautions. Stage II pressure ulcer sacrum with nonhealing ulceration bilateral LE: Wound care on board. Chronic normocytic anemia: At baseline. 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 Transfuse if Hg < 7. COPD not in acute exacerbation: Albuterol Q4H PRN SOB/wheezing. COPD (not on home oxygen), not in acute exacerbation GERD: Protonix 40 mg PO QD. Hyperlipidemia: Lipitor 40 mg PO QHS. Hypothyroidism: Synthroid 100 mcg PO QD. Diabetes mellitus: A1c 8. ISS with accuchecks ACHS along with hypoglycemic precautions. CODE STATUS: FULL CODE DVT Prophylaxis: Heparin SQ GI Prophylaxis: Protonix PO Designated medical POA if patient is not able to make medical decisions for themselves: I have reviewed the following vocational rehab consultant notes: I have reviewed the results of the following tests: BMP. Hip XR. I have ordered the following tests: BMP. Renal US I have discussed the care of this patient with the following independent historian: CATRACHO. I have independently interpreted the following test below: I have discussed the management of this patient with the following physician: Objective - Vital Signs Vital signs: Vital Signs Temp 98.5 F 11/06/24 12:18 Pulse 58 L 11/06/24 12:18 Resp 16 11/06/24 12:18 BP 145/57 11/06/24 12:18 Pulse Ox 95 11/06/24 12:18 FiO2 Intake & Output 11/05/24 11/06/24 11/06/24 18:59 06:59 18:59 Intake Total 540 240 Output Total 650 200 Balance -110 -200 240 Weight 94 kg Intake: Oral 540 240 Output: Urine 650 200 Other: Voiding Method External Catheter External Catheter External Catheter - Labs CBC & Chem 7: 11/03/24 04:10 11/06/24 03:17 Labs: Abnormal Lab Results - Last 24 Hours (Table) 11/05/24 11/05/24 11/06/24 Range/Units 16:57 19:56 03:17 Carbon Dioxide 20.3 L (21.6-31.8) mmol/L Anion Gap 15.70 H (4.00-12.00) mmol/L BUN 56.9 H (9.0-27.0) mg/dL Creatinine 1.8 H (0.6-1.5) mg/dL Est GFR (CKD-EPI) 27 L (>=60) BUN/Creatinine Ratio 31.61 H (12.00-20.00) Ratio Glucose 160 H (70-110) mg/dL POC Glucose (mg/dL) 203 H 240 H (70-110) mg/dL 11/06/24 11/06/24 Range/Units 07:21 12:03 Carbon Dioxide (21.6-31.8) mmol/L Anion Gap (4.00-12.00) mmol/L BUN (9.0-27.0) mg/dL Creatinine (0.6-1.5) mg/dL Est GFR (CKD-EPI) (>=60) BUN/Creatinine Ratio (12.00-20.00) Ratio Glucose (70-110) mg/dL POC Glucose (mg/dL) 156 H 220 H (70-110) mg/dL
[2024-11-06 17:05] LABS: Glucose,Whole Blood 180 mg/dL (70-110)
[2024-11-06 20:21] LABS: Glucose,Whole Blood 180 mg/dL (70-110)
[2024-11-07 06:49] LABS: Glucose,Whole Blood 148 mg/dL (70-110)
[2024-11-07 06:54] LABS: African American GFR (CKD) 38 (>60 ml/min/1.73 sqM); Anion Gap 10 mmol/L; Blood Urea Nitrogen 54 mg/dL (7-17); Calcium 9.5 mg/dL (8.4-10.2); Carbon Dioxide 24 mmol/L (22-30); Chloride 107 mmol/L (98-107); Glucose 146 mg/dL (74-99); Non-African American GFR(CKD) 33 (>60 ml/min/1.73 sqM); Potassium 3.8 mmol/L (3.5-5.1); Sodium 141 mmol/L (137-145)
--- NOTE | 2024-11-07 11:53 | P.PN ---
Subjective Progress Note Date: 11/07/24 Patient was seen and examined. No acute events overnight. No specific complaints. BMP shows BUN 54, Cr 1.47. General: non toxic, no distress, appears at stated age Derm: warm, dry Head: atraumatic, normocephalic, symmetric Mouth: no lip lesion, mucus membranes moist Cardiovascular: good distal perfusion in all 4 extremities Lungs: breathing comfortably, no accessory muscle use Ext: no gross muscle atrophy, 2+ LE edema with ulceration, no contractures Based on my assessment of this patient, this patient meets a high complexity level of care. HUEBR on CKD stage IIIb: UA 2+ protein. Bladder scan PRN. Renal/bladder US pending. Lasix on hold. Hypertensive urgency: BP 153/63. Coreg 3.125 mg PO BID. Metolazone 5 mg PO QD. Nifedipine 60 mg PO QD. Entresto 24-26 mg PO BID. Diastolic CHF exacerbation: Coreg, Metolazone, Nifedipine, Entresto as above. Restart diuretic if renal function remains stable tomorrow. Bilateral lower extremity edema: Chronic. Venous duplex neg. JOÃO wrap bilateral LE. LE elevation. Debility: PT and OT consult. Fall precautions. Stage II pressure ulcer sacrum with nonhealing ulceration bilateral LE: Wound care on board. Chronic normocytic anemia: At baseline. 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 Transfuse if Hg < 7. COPD not in acute exacerbation: Albuterol Q4H PRN SOB/wheezing. COPD (not on home oxygen), not in acute exacerbation GERD: Protonix 40 mg PO QD. Hyperlipidemia: Lipitor 40 mg PO QHS. Hypothyroidism: Synthroid 100 mcg PO QD. Diabetes mellitus: A1c 8. ISS with accuchecks ACHS along with hypoglycemic precautions. CODE STATUS: FULL CODE DVT Prophylaxis: Heparin SQ GI Prophylaxis: Protonix PO Designated medical POA if patient is not able to make medical decisions for themselves: I have reviewed the following mental hygiene consultant notes: I have reviewed the results of the following tests: BMP. I have ordered the following tests: BMP in the AM. Renal US pending. I have discussed the care of this patient with the following independent historian: I have independently interpreted the following test below: I have discussed the management of this patient with the following physician: Objective - Vital Signs Vital signs: Vital Signs Temp 98.1 F 11/07/24 11:49 Pulse 82 11/07/24 11:49 Resp 6 L 11/07/24 11:49 BP 153/63 11/07/24 11:49 Pulse Ox 91 L 11/07/24 11:49 FiO2 Intake & Output 11/06/24 11/07/24 11/07/24 18:59 06:59 18:59 Intake Total 1800 240 Output Total 1200 450 Balance 600 -450 240 Weight 91.6 kg Intake: Oral 1800 240 Output: Urine 900 450 Post Void Residual 300 Other: Voiding Method External Catheter External Catheter External Catheter # Bowel Movements 0 - Labs CBC & Chem 7: 11/03/24 04:10 11/07/24 06:14 Labs: Abnormal Lab Results - Last 24 Hours (Table) 11/06/24 11/06/24 11/06/24 Range/Units 03:17 12:03 17:04 Carbon Dioxide 20.3 L (21.6-31.8) mmol/L Anion Gap 15.70 H (4.00-12.00) mmol/L BUN 56.9 H (9.0-27.0) mg/dL Creatinine 1.8 H (0.6-1.5) mg/dL Est GFR (CKD-EPI) 27 L (>=60) BUN/Creatinine Ratio 31.61 H (12.00-20.00) Ratio Glucose 160 H (70-110) mg/dL POC Glucose (mg/dL) 220 H 180 H (70-110) mg/dL 11/06/24 11/07/24 11/07/24 Range/Units 20:19 06:14 06:47 Carbon Dioxide (21.6-31.8) mmol/L Anion Gap (4.00-12.00) mmol/L BUN 54 H (9.0-27.0) mg/dL Creatinine 1.47 H (0.6-1.5) mg/dL Est GFR (CKD-EPI) (>=60) BUN/Creatinine Ratio (12.00-20.00) Ratio Glucose 146 H (70-110) mg/dL POC Glucose (mg/dL) 180 H 148 H (70-110) mg/dL
[2024-11-07 11:59] LABS: Glucose,Whole Blood 201 mg/dL (70-110)
[2024-11-07 17:03] LABS: Glucose,Whole Blood 150 mg/dL (70-110)
[2024-11-07 20:37] LABS: Glucose,Whole Blood 243 mg/dL (70-110)
[2024-11-08 07:28] LABS: Glucose,Whole Blood 157 mg/dL (70-110)
[2024-11-08 12:38] LABS: Glucose,Whole Blood 186 mg/dL (70-110)
--- NOTE | 2024-11-08 12:40 | US ---
EXAMINATION TYPE: US kidneys/renal and bladder DATE OF EXAM: 11/06/2024 COMPARISON: CLINICAL INDICATION: Female, 84 years old with history of HUBER on CKD; Abnormal labs TECHNIQUE: Grayscale imaging of the bilateral kidneys and urinary bladder: FINDINGS: EXAM MEASUREMENTS: Right Kidney: 10.7 x 3.7 x 4.1 cm Left Kidney: 9.6 x 3.5 x 5.4 cm Right Kidney: Cortical lobularity. Left Kidney: Limited visualization. Lateral anechoic lesion - 2.6 x 3.1 x 2.5 cm Bladder: anechoic Bilateral Jets not seen There is no evidence for hydronephrosis at this point in time. No nephrolithiasis is seen. No monica s are identified. The urinary bladder is anechoic. IMPRESSION: Mild renal parenchymal thinning. Simple cyst left kidney. Otherwise unremarkable study. [facility], , 11/08/2024 12:38 PM
[2024-11-08 12:49] VITALS: BP 130/67; PULSE 54; RESP 16; TEMP 97.8
--- NOTE | 2024-11-08 14:07 | P.DS ---
Providers Date of admission: 11/02/24 21:32 Expected date of discharge: 11/08/24 Attending physician: Janis Hodgson MD Primary care physician: Physician Nonstaff Hospital Course: 84-year-old female with HFpEF (EF 55 to 60% on May 2024) COPD (not on home oxygen), diabetes (on insulin), GERD, hyperlipidemia, hypertension, osteoarthritis, chronic lower extremity edema, known sacral ulcer and chronic bilateral ankle wounds, hypothyroidism here for evaluation of generalized weakness. Patient reported that for over 2 days, patient has been experiencing weakness to the point of being unable to ambulate out of her chair. She also has associated increased bilateral leg swelling, shortness of breath and fatigue. In the ED she underwent extensive evaluation. Temperature 97.5 F, pulse rate 64, respiratory rate 18, blood pressure 202/76, O2 saturation 97% on room air. WBC 5.95, hemoglobin 10.3, MCV 89, potassium 5.3, chloride 114, bicarb 17, creatinine 1.36, BUN 35, glucose 109, phosphorus 3.9, magnesium 2.1, calcium 9.8. Urinalysis trace blood and 2+ protein. EKG showed sinus rhythm with a rate of 65 bpm, normal axis, no ST-T changes, good R wave progression, QTc 450 MS. CXR no acute process. Patient was admitted for further workup and management. Started on Lasix 60 mg IV BID. Venous duplex negative for DVT. He renal function worsened, Cr from 1.36 to 1.9. Lasix was help and renal function improved to 1.47 at the time of discharge. PT and OT evaluated the patient recommending SNF. 11/08 Patient was seen and examined. She reports no complaints today. No new labs done today. Discharge Plan: Discharge to [facility]. Diuretics include Metolazone 5 mg PO QD and Lasix 40 mg PO QD (decreased dose). New medications include Procardia XL 60 mg PO QD. Continue Synthroid, Lipitor, Insulin, Entresto, Coreg and Albuterol INH PRN. Follow up with PCP within 1-2 days and Cardiology/Nephrology within 1 week of discharge. Recommending 1.5L fluid restriction with low salt diet. General: non toxic, no distress, appears at stated age Derm: warm, dry Head: atraumatic, normocephalic, symmetric Mouth: no lip lesion, mucus membranes moist Cardiovascular: S1 S2 reg. No murmurs. Lungs: Decreased BS BL, no accessory muscle use Ext: no gross muscle atrophy, 1+ LE edema with ulceration, no contractures Discharge Diagnosis: HUBER on CKD stage IIIb Hypertensive urgency Diastolic CHF exacerbation Bilateral lower extremity edema Debility and Generalized weakness Stage II pressure ulcer sacrum with nonhealing ulceration bilateral LE Chronic normocytic anemia COPD not in acute exacerbation GERD Hyperlipidemia Hypothyroidism Diabetes mellitus This complex discharge took 35 minutes to complete. Patient Condition at Discharge: Stable Plan - Discharge Summary New Discharge Prescriptions: New Acetaminophen Tab [Tylenol] 650 mg PO Q6HR PRN tab PRN Reason: Fever And/ Or Pain NIFEdipine XL [Procardia XL] 60 mg PO DAILY tab metOLazone [Zaroxolyn] 5 mg PO DAILY tab Continue Levothyroxine Sodium 100 mcg PO DAILY@1200 Atorvastatin Calcium [Lipitor] 40 mg PO HS Insulin NPH Hum/Reg Insulin Hm [NovoLIN 70-30 Flexpen] 15 units SQ W/SUPPER Sacubitril/Valsartan [Entresto 24 mg-26 mg Tablet] 1 tab PO BID carvediloL [Coreg] 3.125 mg PO BID Albuterol Inhaler [Ventolin Hfa Inhaler] 2 puff INHALATION RT-Q4H PRN PRN Reason: Shortness Of Breath Changed Furosemide [Lasix] 40 mg PO DAILY #0 Discharge Medication List Levothyroxine Sodium 100 mcg PO DAILY@1200 10/02/19 [History] Atorvastatin Calcium [Lipitor] 40 mg PO HS 04/18/23 [History] carvediloL [Coreg] 3.125 mg PO BID 04/18/23 [History] Insulin NPH Hum/Reg Insulin Hm [NovoLIN 70-30 Flexpen] 15 units SQ W/SUPPER 05/17/24 [History] Albuterol Inhaler [Ventolin Hfa Inhaler] 2 puff INHALATION RT-Q4H PRN 07/14/24 [History] Sacubitril/Valsartan [Entresto 24 mg-26 mg Tablet] 1 tab PO BID 07/14/24 [History] Acetaminophen Tab [Tylenol] 650 mg PO Q6HR PRN tab 11/08/24 [Rx] Furosemide [Lasix] 40 mg PO DAILY #0 11/08/24 [Rx] NIFEdipine XL [Procardia XL] 60 mg PO DAILY tab 11/08/24 [Rx] metOLazone [Zaroxolyn] 5 mg PO DAILY tab 11/08/24 [Rx] Follow up Appointment(s)/Referral(s): Elaine Kim MD [STAFF PHYSICIAN] - 1 Week Mahendra Ramos MD [STAFF PHYSICIAN] - 1 Week None,Stated [REFERRING] - 1-2 days Activity/Diet/Wound Care/Special Instructions: Diet: Low salt 1.5L fluid restriction Discharge Disposition: TRANSFER TO SNF/ECF
== END 2024-11-08 16:43 | DRG 291 ==
LOC: EC 18:46 → 5NMEDONC 21:32
PROVIDERS: ADMIT Internal Medicine; ATTEND Internal Medicine
DX: I13.0 Hypertensive heart and chronic kidney disease with heart failure and stage 1 through stage 4 chronic kidney disease, or unspecified chronic kidney disease (principal); I50.33 Acute on chronic diastolic (congestive) heart failure; L89.152 Pressure ulcer of sacral region, stage 2; L89.899 Pressure ulcer of other site, unspecified stage; L97.911 Non-pressure chronic ulcer of unspecified part of right lower leg limited to breakdown of skin; E86.0 Dehydration; L97.921 Non-pressure chronic ulcer of unspecified part of left lower leg limited to breakdown of skin; D63.1 Anemia in chronic kidney disease; E11.22 Type 2 diabetes mellitus with diabetic chronic kidney disease; J44.9 Chronic obstructive pulmonary disease, unspecified; E87.5 Hyperkalemia; N18.32 Chronic kidney disease, stage 3b; I16.0 Hypertensive urgency; E03.9 Hypothyroidism, unspecified; N17.9 Acute kidney failure, unspecified; E11.622 Type 2 diabetes mellitus with other skin ulcer; E11.42 Type 2 diabetes mellitus with diabetic polyneuropathy; Z79.4 Long term (current) use of insulin; E78.5 Hyperlipidemia, unspecified; I87.8 Other specified disorders of veins; M19.90 Unspecified osteoarthritis, unspecified site; K21.9 Gastro-esophageal reflux disease without esophagitis; R29.6 Repeated falls; Z91.81 History of falling; Z87.01 Personal history of pneumonia (recurrent); Z79.890 Hormone replacement therapy; Z87.891 Personal history of nicotine dependence; Z82.49 Family history of ischemic heart disease and other diseases of the circulatory system; Z79.899 Other long term (current) drug therapy; Z80.0 Family history of malignant neoplasm of digestive organs; Z88.0 Allergy status to penicillin
CPT/HCPCS: 36415; 51702; 71046; 73502; 76770; 80048; 80053; 81001; 82550; 83605; 83735; 84100; 84484; 85025; 85610; 85730; 93005; 93970; 96374; 96376; 99285